=== PATIENT | female | born 1950 | race Caucasian/White ===

== ENCOUNTER 2018-01-16 11:15 | Emergency (ER) | payer OTHER ==
--- OUTSIDE RECORDS SUMMARY | 2018-01-16 11:17 | XMS REPORT | Continuity of Care Document ---
:1950 Author Organization Interface Problems Problem Status Onset Classification Date Comments Source Date Reported N18.3 - "CHRONIC Active [facility] KIDNEY DISEASE, STAGE" 016 [place] ARANESP 60 MCG, Active CPT-99957, D63.1 016 [place] DENSE BREAST Active 016 [place] SCREENING Active 016 [place] SCREENING MAMMO Active 016 [facility] CPT 88064, ANEMIA IN Active CKD D63.1 016 [facility] Anemia Resolved Problem 11/03/2015 [place] Anemia associated with Active Problem 11/03/2015 chronic renal failure [place] Chronic kidney disease Resolved Problem 11/03/2015 [facility] Diabetes mellitus type Resolved Problem 11/03/2015 2 [place] Hypertension Resolved Problem 11/03/2015 [place] Retinopathy Resolved Problem 11/03/2015 [facility] Peripheral vascular Active Diagnosis 04/10/2016 [facility] disease, unspecified MD Dandy, PA Bruit Active Problem 04/10/2016 Chan Dorman MD, PA Dyspnea, unspecified Active Diagnosis 04/10/2016 Chan Dorman MD, PA Abnormal ECG Active Problem 04/10/2016 Chan Dorman MD, PA Shortness of breath Active Diagnosis 04/10/2016 Chan Dorman MD, PA Screening for Active Diagnosis 04/10/2016 [facility] cardiovascular Dandy, disorders , PA 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, failure , PA Pure Active Diagnosis 04/10/2016 [facility] hypercholesterolemia MD Dandy, PA R06.02 Active [place] SHORTNESS OF BREATH Active [place] ANEMIA IN CHRONIC Active KIDNEY DISEASE [place] ENCNTR SCREEN Active MAMMOGRAM FOR [place] MALIGNANT NE INCONCLUSIVE MAMMOGRAM Active [facility] Medications Medication Details Route Status Patient Ordering Order Source Instructions Provider Date HydrALAZINE HCl 1 tablet Orally Active 25 MG Orally Al-Azzeh 02/14/ Chan three times a 2015 terese Dorman (tid) , PA Isosorbide 1 tablet Orally Active 10 mg Orally Al-Azzeh 02/14/ Chan Dinitrate three times a 2015, (tid) JUAN GUY Carvedilol as directed Orally Active 6.25 MG Al-Azzeh 10/31/ Chan Orally twice 2015, a day (bid) JUAN GUY Carvedilol 1 tablet Orally No Longer 3.125 MG Al-Azzeh 10/31/ Chan Active Orally twice 2015, a day (bid) JUAN GUY Carvedilol as directed Orally Active 12.5 MG Al-Azzeh 10/31/ Chan Orally twice 2015, a day (bid) JUAN GUY Aranesp 60 No Longer MH microgram, Active 2015 1 mL, Route: SUB-Q, Drug form: INJ, ONCALL, Start date: 10/31/15 13:00:00 CDT, Duration: 8 hr, Stop date: 10/31/15 20:59:00 CDTNotes: (Same as: Aranesp) Non-formula ry Aranesp 60 No Longer MH microgram, Active 2015 1 mL, Route: SUB-Q, Drug form: INJ, ONCALL, Start date: 10/16/15 12:00:00 CDT, Duration: 12 hr, Stop date: 10/16/15 23:59:00 CDTNotes: (Same as: Aranesp) Non-formula ry Amlodipine 1 tablet Orally No Longer 2.5 MG Orally Al-Azzeh 10/09/ Chan Besylate Active Once a day 2015 MD Dorman PA Aranesp 60 No Longer MH microgram, Active 2015 1 mL, Route: SUB-Q, Drug form: INJ, ONCALL, Start date: 10/03/15 11:00:00, Duration: 12 hr, Stop date: 10/03/15 22:59:00Not es: (Same as: Aranesp) Non-formula ry Aranesp 60 Inactive MH microgram, 2015 1 mL, Route: SUB-Q, Drug form: INJ, ONCALL, Start date: 09/17/15 13:00:00, Duration: 12 hr, Stop date: 09/18/15 0:59:00Note s: (Same as: Aranesp) Non-formula ry atorvastatin PO, Active Bedtime, 0 2015 Refill(s) Coreg PO, BID, 0 Active Refill(s) 2015 [facility] Spironolactone 25 mg=2 Active tab, PO, 2015 Daily, # 60 tab, 0 Refill(s) glimepiride PO, Daily, Active 0 Refill(s) 2015 Janumet PO, BID, 0 Active Refill(s) 2015 Aranesp 60 Inactive microgram, 2015 1 mL, Route: SUB-Q, Drug form: INJ, ONCALL, Start date: 08/30/15 13:00:00, Duration: 1 day, Stop date: 08/31/15 12:59:00Not es: (Same as: Aranesp) Non-formula ry Aranesp 60 Inactive microgram, 2015 [facility] Route: SUB-Q, Drug form: INJ, ONCALL, Start date: 08/10/15 13:00:00, Duration: 1 day, Stop date: 08/11/15 12:59:00Not es: (Same as: Aranesp) Non-Formula ry Advair Diskus 1 puff Inhalation Active 250-50 Al-Azzeh Chan MCG/DOSE Dandy, Inhalation JUAN GUY Twice a day Nasonex 2 sprays in Nasally Active 50 MCG/ACT Al-Azzeh Chan each Nasally Once Dandy, nostril a day JUAN GUY Spironolactone 1 tablet Orally Active 25 MG Orally Al-Azzeh Chan Once a day MD Dorman PA Januvia 1 tablet Orally Active 50 MG Orally Al-Azzeh Chan Once a day MD Dandy PA Glimepiride 1 tablet Orally Active 4 MG Orally Al-Azzeh Chan with Once a day Dandy breakfast JUAN GUY or the first main meal of the day Atorvastatin 1 tablet Orally Active 40 MG Orally Al-Azzeh Chan Calcium Once a day MD Dandy PA Omeprazole 1 tablet Orally Active 20 mg Orally Al-Azzeh Chan twice a day Dandy, (bid) JUAN GUY Allergies, Adverse Reactions, Alerts Substance Category Reaction Severity Reaction Status Date Comments Source type Reported penicillin Adverse Info Not Adverse Active Chan Reaction Available Reaction 6 MD Dandy, PA NKDA Assertion Drug Active allergy [facility] Immunizations Immunization Date Given Site Status Last Updated Comments Source Results Order Name Results Value Reference Date Interpretation Comments Source Range Breast Breast - BREAST COMPLETE HAMMAD US 10/03 - Complete Complete Hammad - [facility] Hammad US US ULTRASOUND OF BOTH BREASTS AND BOTH AXILLA: 10/04/2015 CLINICAL: Dense breasts. Read by: Mart Lambert MD Dictated Date/time: 10/04/15 13:42 Electronically Signed by: Mart Lambert MD 10/04/15 13:42 FINAL REPORT Comparison is made to exam dated: 09/07/2015 mammogram - [facility]. Color flow and real-time ultrasound of both breasts and both axilla were performed. Terry scale images of the real-time examination were reviewed. For both breasts, all 4 quadrants, the retroareolar region and axilla are evaluated in this exam. No abnormalities were seen sonographically in either breast or either axilla. IMPRESSION: BENIGN There is no sonographic evidence of malignancy. Return to annual mammogram screening schedule is recommended. The results were reviewed with the patient. SUMMARY: The patient would likely benefit from 3D tomosynthesis screening mammograms given her breast density, which can be performed at [facility]. Mart Lambert M.D. jt/:10/04/2015 13:42:31 Cannery Tender Engineer: Chicho Dejesus, [facility] This exam was dictated and interpreted by [id number] for [facility]. letter sent: Normal exam Ultrasound BI-RADS: 2 Benign Digital Digital - DIGITAL MAMMO SCREENING HAMMAD GUZMAN 09/06 - Mammo Mammo /2015 - [facility] Screening Screening BILATERAL DIGITAL SCREENING MAMMOGRAM WITH CAD: 2015 Hammad Denny MA CLINICAL: Routine. Read by: Mart Lambert MD Dictated Date/time: 09/19/15 08:31 Electronically Signed by: Mart Lambert MD 09/19/15 08:31 FINAL REPORT Current study was evaluated with a Computer Aided Detection (CAD) system. Comparison is made to exam dated: 09/28/2013 mammogram. Outside films requested but not received. The tissue of both breasts is heterogeneously dense, which could obscure detection of small masses. Exam is limited as the technologist notes the patient would not allow for optimal compression. Patient complains of intermittent breast pain and/or tenderness. There are benign appearing scattered calcifications and densities in both breasts. No significant masses, calcifications, or other findings are seen in either breast. There has been no significant interval change. IMPRESSION: BENIGN Clinical management of the patient's breast complaints is recommended. There is no mammographic evidence of malignancy. A 1 year screening mammogram is recommended. SUMMARY: As the patient has dense breast parenchyma with scattered densities, this could obscure additional abnormalities. The patient would likely benefit from a supplemental screening test such as bilateral u ltrasound. This should be discussed with the patient by the referring physician. Mart simental/joyce:09/19/2015 08:31:07 Cannery Tender Engineer: Anne Reina, [facility] This exam was dictated and interpreted by [id number] for [facility]. letter sent: Normal Henda Mammogram BI-RADS: 2 Benign Retroperit Retroperiton PROCEDURE: RENAL ULTRASOUND WITH DOPPLER 08/22 - [facility] - [facility] w w Doppler US Doppler US CLINICAL INDICATION: N18.3. Chronic kidney disease. Read by: Toi Ramirez MD Dictated Date/time: 08/22/15 12:45 Electronically Signed by: Toi Ramirez MD 08/22/15 13:08 FINAL REPORT COMPARISON: None. TECHNIQUE: Multiple longitudinal and transverse real time sonographic images of the kidneys and urinary bladder are obtained. Doppler evaluation of the renal vasculature was performed. Static images are submitted. FINDINGS: KIDNEYS: Both kidneys are remarkable for mild diffuse increased cortical echogenicity suggesting medical renal disease. The renal cortical thickness is within normal limits. There is no demonstrable renal lesion or renal calculus. There is no hydronephrosis or perinephric fluid collection. The right kidney measures 11.4 x 5 x 5.1 cm. The maximal right renal cortical thickness measures 1.6 cm. The left kidney m easures 11 x 4.6 x 5.3 cm. The maximal left renal cortical thickness measures 1.6 cm. RENAL DOPPLER: The peak systolic velocity of the abdominal aorta is 90.3 cm/s, the visualized right renal artery is 88.5 cm/s and the visualized left renal artery is 79.3 cm/s. The right renal artery to aortic ratio i s 0.98 and the left is 0.88. Flow is demonstrated in each renal vein at the hilum. The resistive indices of the arcuate arteries of the right kidney range from 0.75-0.78 and for the left kidney range fr om 0.64-0.76. The arterial waveforms demonstrate a normal morphology. BLADDER: Images of the urinary bladder are unremarkable. Bilateral ureteral jets are demonstrated in the lumen of the urinary bladder by color flow analysis. The prevoid volume of the urinary bladder measures 284 mL. The postvoid volume measures 50.9 mL. IMPRESSION: 1. Findings suggesting medical renal disease. 2. Otherwise unremarkable renal ultrasound. 3. There is no sonographic evidence for a hemodynamically significant renal artery stenosis. SL: 15 Chest 2 Chest 2 EXAMINATION: Chest 2 views 08/09 - views DX views [facility] CLINICAL HISTORY: Shortness of breath. Read by: Umair Cote MD Dictated Date/time: 08/09/15 17:17 Electronically Signed by: Umair Cote MD 08/09/15 17:18 FINAL REPORT COMPARISON: No prior similar examinations are currently available for comparison. The hyperinflated lungs are clear of consolidation, pleural effusion, and pneumothorax. The heart size is at the upper limits of normal. Mild spinal degenerative changes without acute injury or suspicious focal osseous lesion. IMPRESSION: 1. Mild hyperinflation. 2. Heart size near upper limits of normal. SL:17 Vital Signs Vital Sign Value Date Comments Source Weight 150 02/15/2016 Chan Dorman MD, PA Heart Rate 64 02/15/2016 Chan Dorman MD, PA Diastolic (mm Hg) 82 02/15/2016 Chan Dorman MD, PA Systolic (mm Hg) 176 02/15/2016 Chan Dorman MD, PA Weight 158 11/01/2015 Chan Dorman MD, PA Heart Rate 73 11/01/2015 Chan Dorman MD, PA Diastolic (mm Hg) 65 11/01/2015 Chan Dorman MD, PA Systolic (mm Hg) 120 11/01/2015 Chan Dorman MD, PA Weight 70 10/03/2015 [facility] BMI Calculated 25.68 10/03/2015 [facility] Height 165.1 cm 10/03/2015 [facility] Height 165.1 cm 08/13/2015 [facility] BMI Calculated 25.68 08/13/2015 [facility] Weight 70 08/13/2015 [facility] Encounters Location Location Encounter Encounter Reason Attending ADM DC Status Source Details Type Number For Provider Date Date Visit [facility] [id number] Mohammad 08/09 08/10 Tico Morales /2015 [facility] Outpt Diag [id number] Logan 08/22 08/23 [facility] Calvin /2015 [facility] OP [id number] Aemena 08/29 09/28 [facility] Hash-Jiw /2015 [facility] Outpatient [id number] Ameena 09/06 09/07 [facility]iw /2015 [facility] OP [id number] Ameena 10/01 10/31 [facility]i /2015 [facility] Outpatient [id number] Ameena 10/03 10/04 [facility]i /2015 [facility] echo/caroti [id number] 10/15 10/15 Chan Dorman MD, d/arterial [id number] /2015 JUAN Dorman dopplers [id number] , PA Chan echo/caroti [id number] 10/15 10/15 Chan Dorman MD, d/arterial [id number]- /2015 JUAN Dorman dopplers [id number] , PA Chan echo/caroti [id number] 10/15 10/15 Chan Dorman MD, d/arterial [id number] /2015 JUAN Dorman dopplers [id number] , PA Chan Follow-Up [id number] 10/31 10/31 Chan Dorman MD, [id number] /2015 JUAN Dorman [id number] , PA Chan Follow-Up [id number] 10/31 10/31 Chan Dorman MD, [id number] /2015 JUAN Dorman [id number] , JUAN Giles Follow-Up [id number] 02/14 02/14 Chan Dorman MD, [id number] /2015 JUAN Dorman [id number] , JUAN Procedures Procedure Code Date Perfomer Comments Source [facility] - Total [id number] 06/29/1997 [facility] abdominal hysterectomy and bilateral salpingo-oophorect [facility] Back care [id number] [facility]
--- OUTSIDE RECORDS SUMMARY | 2018-01-16 11:18 | XMS REPORT ---
:1950 Author Organization [facility] Care Team Providers Name Role Phone Mil Ibarra Provider Role Unavailable Allergies, Adverse Reactions, Alerts Substance Reaction Event Type penicillin Info Not Available Drug Allergy Encounters Encounter Location Date echo/carotid/arterial dopplers Chan Dorman MD, PA October 16, 2015 Follow-Up Chan Dorman MD, PA November 01, 2015 Follow-Up Chan Dorman MD, PA Feb 15, 2016 Problems Problem Type Condition ICD-9 Code Onset Dates Condition Status Assessment Shortness of breath R06.02 Active Assessment Dyspnea, unspecified R06.00 Active Assessment Pure hypercholesterolemia E78.0 Active Assessment Peripheral vascular disease, I73.9 Active unspecified Assessment Screening for cardiovascular Z13.6 Active disorders Problem Bruit R09.89 Active Problem Hypertensive heart disease I11.9 Active without heart failure Problem Abnormal ECG R94.31 Active Assessment Abnormal ECG R94.31 Active Assessment Bruit R09.89 Active Problem Peripheral vascular disease, I73.9 Active unspecified Assessment Hypertensive heart disease I11.9 Active without heart failure Medications Medication Code System Code Instructions Start End Status Dosage Date Date Advair Diskus MEDISPAN 95246-1 250-50 MCG/DOSE Active 1 puff 696-00 Inhalation Twice a day Atorvastatin MEDISPAN 83391-3 40 MG Orally Active 1 tablet Calcium 121-05 Once a day Omeprazole MEDISPAN 04340-1 20 mg Orally Active 1 tablet 915-30 twice a day (bid) Spironolactone MEDISPAN 94411-3 25 MG Orally Active 1 tablet 803-11 Once a day Nasonex MEDISPAN 39774-2 50 MCG/ACT Active 2 sprays in 288-01 Nasally Once a each nostril day Januvia MEDISPAN 28212-1 50 MG Orally Active 1 tablet 112-28 Once a day Carvedilol MEDISPAN 54657-1 12.5 MG Orally October 31, Active as directed 295-01 twice a day 2015 (bid) HydrALAZINE HCl MEDISPAN 73663-7 25 MG Orally Feb 14, Active 1 tablet 554-00 three times a 2015 day (tid) Isosorbide MEDISPAN 90605-7 10 mg Orally Feb 14, Active 1 tablet Dinitrate 771-01 three times a 2015 day (tid) Glimepiride MEDISPAN 32534-1 4 MG Orally Active 1 tablet 256-01 Once a day with breakfast or the first main meal of the day Social History Social History Element Qualifiers Date Reported Tobacco Use: . Are you a: never smoker Feb 15, 2016 Do you drink alcohol? . Status: No Feb 15, 2016 Vital Signs Date/Time: Feb 15, 2016 Weight 150 lbs Cardiac Monitoring Heart Rate 64 /min Blood Pressure Diastolic 82 mm Hg Blood Pressure Systolic 176 mm Hg Summary Purpose eClinicalWorks Submission
--- OUTSIDE RECORDS SUMMARY | 2018-01-16 11:18 | XMS REPORT ---
:1950 Author Organization eClinicalWorks Care Team Providers Name Role Phone MichaelGalileoDennis Mil Provider Role Unavailable Encounters Encounter Location Date echo/carotid/arterial dopplers Chan Dorman MD, PA October 16, 2015 Social History Social History Element Qualifiers Date Reported Tobacco Use: . Are you a: never smoker October 10, 2015 Do you drink alcohol? . Status: No October 10, 2015 Summary Purpose eClinicalWorks Submission
--- OUTSIDE RECORDS SUMMARY | 2018-01-16 11:18 | XMS REPORT ---
:1950 [facility] Team Providers Name Role Phone Mil Ibarra Provider Role Unavailable Allergies, Adverse Reactions, Alerts Substance Reaction Event Type penicillin Info Not Available Drug Allergy Encounters Encounter Location Date echo/carotid/arterial dopplers Chan Dorman MD, PA October 16, 2015 Follow-Up Chan Dorman MD, PA November 01, 2015 Problems Problem Type Condition ICD-9 Code Onset Dates Condition Status Assessment Peripheral vascular disease, I73.9 Active unspecified Assessment Bruit R09.89 Active Assessment Dyspnea, unspecified R06.00 Active Assessment Abnormal ECG R94.31 Active Assessment Shortness of breath R06.02 Active Assessment Screening for cardiovascular Z13.6 Active disorders Assessment Hypertensive heart disease I11.9 Active without heart failure Assessment Pure hypercholesterolemia E78.0 Active Medications Medication Code System Code Instructions Start End Status Dosage Date Date Carvedilol MEDISPAN 12533-6 6.25 MG Orally October 31, Active as directed 135-01 twice a day 2015 (bid) Carvedilol MEDISPAN 95423-3 3.125 MG Orally October 31, Inactive 1 tablet 051-01 twice a day 2015 (bid) Advair Diskus MEDISPAN 01772-7 250-50 MCG/DOSE Active 1 puff 696-00 Inhalation Twice a day Nasonex MEDISPAN 98187-3 50 MCG/ACT Active 2 sprays in 288-01 Nasally Once a each day nostril Spironolactone MEDISPAN 92859-3 25 MG Orally Active 1 tablet 803-11 Once a day Amlodipine MEDISPAN 32227-3 2.5 MG Orally SeptemberOctober 31, Inactive 1 tablet Besylate 100-22 Once a day 2015 Januvia MEDISPAN 77039-7 50 MG Orally Active 1 tablet 112-28 Once a day Glimepiride MEDISPAN 33637-1 4 MG Orally Active 1 tablet 256-01 Once a day with breakfast or the first main meal of the day Atorvastatin MEDISPAN 23927-6 40 MG Orally Active 1 tablet Calcium 121-05 Once a day [facility] 20 mg Orally Active 1 tablet 915-30 twice a day (bid) Social History Social History Element Qualifiers Date Reported Tobacco Use: . Are you a: never smoker November 03, 2015 Do you drink alcohol? . Status: No November 03, 2015 Vital Signs Date/Time: November 01, 2015 Weight 158 lbs Cardiac Monitoring Heart Rate 73 /min Blood Pressure Diastolic 65 mm Hg Blood Pressure Systolic 120 mm Hg Summary Purpose eClinicalWorks Submission
[2018-01-16] MEDS ORDERED: NA CHLORIDE 0.9% 1,000 ML ONE (11:53)
[2018-01-16] MEDS ORDERED: ONDANSETRON 4 MG/2 ML VIAL ONE (11:53)
[2018-01-16 12:08] LABS: Absolute Lymphocytes (CBC) 1.1 K/uL (0.7-4.9); Absolute Monocytes 0.3 K/uL (0.1-1.3); Absolute Neutrophil 3.2 K/uL (1.8-8.0); Basophils % 0.6 % (0-1.3); Eosinophils % 3.2 % (0-4.4); Hematocrit 26.4 % (36.0-45.0); Lymphocytes % 22.6 % (15.3-44.8); MCH 33.7 pg (27.0-35.0); MCV 94.5 fL (80-100); MPV 8.9 fL (7.6-11.3); Monocytes % 6.4 % (3.3-12.3)
[2018-01-16 12:19] LABS: Albumin 3.8 g/dL (3.4-5.0); Bilirubin Direct 0.1 mg/dL (0-0.2); Bilirubin Total 0.3 mg/dL (0.2-1.0); Potassium 4.2 mmol/L (3.5-5.1); Protein, Total 7.1 g/dL (6.4-8.2)
[2018-01-16] MEDS ORDERED: NA CHLORIDE 0.9% 500 ML ONE (13:22)
--- NOTE | 2018-01-16 13:25 | RAD REPORT ---
EXAM DESCRIPTION: US - Abdomen Exam Limited - 01/16/2018 1:16 pm CLINICAL HISTORY: Abdominal pain. COMPARISON: None. FINDINGS: The gallbladder wall is not thickened. A gallstone is not seen. Mild to moderate sludge i s present. The biliary tree is normal caliber. IMPRESSION: Mild to moderate sludge within the gallbladder.
--- NOTE | 2018-01-16 13:43 | EDPHYS ---
Physician Documentation [facility] Name: Tracy Butt Age: 67 yrs Sex: Female : 1950 Arrival Date: 01/16/2018 Time: 11:18 Bed 5 Private MD: Noe Taylor ED Physician Sven Osuna HPI: 01/16 11:36 This 67 yrs old Female presents to ER via Ambulatory with complaints of rn Nausea, Decreased Appetite, Leg Cramps. 11:36 The patient presents to the emergency department with nausea. Onset: The rn symptoms/episode began/occurred 2 day(s) ago. Possible causes: unknown. Severity of symptoms: At their worst the symptoms were mild in the emergency department the symptoms are unchanged. The patient has experienced a previous episode. Reports nausea, decreased appetite, fatigue, and leg cramps for about 2 days, reports last time had these symptoms had acute renal failure, so came in for evaluation before needs another hospitalization, otherwise no abd pain. Normal bowel movements. Just had EGD/colonoscopy/swallow study/pill cam done at GI center, no results yet.. Historical: - Allergies: 11:45 PENICILLINS; tw2 11:45 CHLORAMPHENICOL; tw2 - Home Meds: 11:45 darbepoetin bella in polysorbate injection injection [Active]; atorvastatin 20 mg oral tw2 tab 1 tab once daily [Active]; brimonidine 0.2 % ophthalmic drop 1 drop every 8 hours [Active]; calcium acetate miscellaneous powd [Active]; Cardura 8 mg Oral tab 1 tab once daily [Active]; carvedilol 25 mg oral tab 1 tab 2 times per day [Active]; ciprofloxacin tablet 500 mg 1 tab by mouth two times a day [Active]; furosemide 20 mg Oral tab 1 tab 2 times per day [Active]; 12:09 glimepiride 2 mg Oral tab 1 tab once daily [Active]; hydralazine 100 mg Oral tab 1 tab tw2 2 times per day [Active]; hydrocortisone 2.5 % Topical crea once daily [Active]; Integra F 125-1-40-3 mg oral cap 1 cap once daily [Active]; Iron CR 65 mg Oral twice a day [Active]; ketorolac 0.4 % ophthalmic drop [Active]; losartan 50 mg oral tab 1 tab once daily [Active]; pantoprazole 40 mg oral TbEC 1 tab once daily [Active]; vitamin A 8,000 unit Oral cap 1 cap once daily [Active]; - PMHx: 12:09 Diabetes - NIDDM; Hypertension; kidney disease; tw2 - Immunization history:: Adult Immunizations up to date. - Social history:: Smoking status: Patient/guardian denies using tobacco. - Family history:: not pertinent. - Ebola Screening: : Patient denies travel to an Ebola-affected area in the 21 days before illness onset. - Hospitalizations: : No recent hospitalization is reported. ROS: 11:36 Constitutional: Negative for fever, chills, and weight loss, Eyes: Negative for injury, rn pain, redness, and discharge, Neck: Negative for injury, pain, and swelling, Cardiovascular: Negative for chest pain, palpitations, and edema, Respiratory: Negative for shortness of breath, cough, wheezing, and pleuritic chest pain, Abdomen/GI: Negative for abdominal pain, vomiting, diarrhea, and constipation, MS/Extremity: Negative for injury and deformity, Skin: Negative for injury, rash, and discoloration, Neuro: Negative for headache, numbness, tingling, and seizure. Exam: 11:36 Constitutional: This is a well developed, well nourished patient who is awake, alert, rn and in no acute distress. Head/Face: Normocephalic, atraumatic. Eyes: Pupils equal round and reactive to light, extra-ocular motions intact. Lids and lashes normal. Conjunctiva and sclera are non-icteric and not injected. Cornea within normal limits. Periorbital areas with no swelling, redness, or edema. ENT: Oropharynx with no redness, swelling, or masses, exudates, or evidence of obstruction, uvula midline. Cardiovascular: Regular rate and rhythm with a normal S1 and S2. No gallops, murmurs, or rubs. Normal PMI, no JVD. No pulse deficits. Respiratory: Lungs have equal breath sounds bilaterally, clear to auscultation and percussion. No rales, rhonchi or wheezes noted. No increased work of breathing, no retractions or nasal flaring. Abdomen/GI: Soft, non-tender, with normal bowel sounds. No distension or tympany. No guarding or rebound. No evidence of tenderness throughout. MS/ Extremity: Pulses equal, no cyanosis. Neurovascular intact. Full, normal range of motion. Equal circumference. Neuro: Awake and alert, GCS 15, oriented to person, place, time, and situation. Cranial nerves II-XII grossly intact. Motor strength 5/5 in all extremities. Sensory grossly intact. Cerebellar exam normal. Vital Signs: 11:33 BP 177 / 72; Pulse 71; Resp 17; Pulse Ox 98% on R/A; tw2 11:48 Temp 98.4(O); ae1 12:56 BP 152 / 68; Pulse 75; Resp 18; Pulse Ox 97% on R/A; ae1 13:23 BP 152 / 62; Pulse 72; Resp 17; Pulse Ox 97% on R/A; tw2 MDM: 11:26 Patient medically screened. rn 13:40 Differential diagnosis: cholecystitis, pancreatitis, viral gastroenteritis, rn gastroenteritis, dehydration, acute renal failure. Data reviewed: vital signs, nurses notes, lab test result(s), radiologic studies, ultrasound, and as a result, I will discharge patient. Counseling: I had a detailed discussion with the patient and/or guardian regarding: the historical points, exam findings, and any diagnostic results supporting the discharge/admit diagnosis, lab results, radiology results, the need for outpatient follow up, to return to the emergency department if symptoms worsen or persist or if there are any questions or concerns that arise at home. Response to treatment: the patient's symptoms have markedly improved after treatment, the patient's condition has returned to base line, the patient is now symptom free, patient is well hydrated. and as a result, I will discharge patient. Special discussion: I discussed with the patient/guardian in detail that at this point there is no indication for admission to the hospital. It is understood, however, that if the symptoms persist or worsen the patient needs to return immediately for re-evaluation. ED course: Pt feels much better, no nausea, mild elevation of lipase but no abd pain, u/s gallbladder shows sludge but normal CBD, no stones, normal LFTs, doesn't drink etoh, given 1.5 L NS, creatinine a few weeks ago shows baseline of 2.5, only slightly elevated today at 2.6, pre-renal ratio, will dc home with oral hydration and renal f/u. . 01/16 11:36 Order name: Basic Metabolic Panel; Complete Time: 12:26 rn 01/16 11:36 Order name: CBC with Diff; Complete Time: 12:26 rn 01/16 11:36 Order name: Hepatic Function; Complete Time: 12:26 rn 01/16 11:36 Order name: Lipase; Complete Time: 12:26 rn 01/16 11:36 Order name: Urine Microscopic Only rn 01/16 11:36 Order name: Troponin (emerg Dept Use Only); Complete Time: 12:26 rn 01/16 11:36 Order name: IV Saline Lock; Complete Time: 11:47 rn 01/16 11:36 Order name: Labs collected and sent; Complete Time: 11:58 rn 01/16 11:36 Order name: EKG; Complete Time: 11:38 rn 01/16 12:37 Order name: US Abdomen Limited; Complete Time: 13:43 rn 01/16 14:36 Order name: Urine Dipstick--Ancillary (enter results) bd 01/16 11:36 Order name: Urine Dipstick-Ancillary (obtain specimen); Complete Time: 14:26 rn 01/16 11:36 Order name: EKG - Nurse/Tech; Complete Time: 11:47 rn Administered Medications: 11:50 Drug: NS 0.9% 1000 ml Route: IV; Rate: 1000 ml; Site: right antecubital; ae1 12:45 Follow up: IV Status: Completed infusion ae1 11:50 Drug: Zofran 4 mg Route: IVP; Site: right antecubital; ae1 13:18 Follow up: Response: Pain is decreased ae1 13:22 Drug: NS 0.9% 500 ml Route: IV; Rate: bolus; Site: right antecubital; ae1 14:36 Follow up: IV Status: Completed infusion ae1 Disposition: 01/16/18 13:42 Discharged to Home. Impression: Dehydration, Nausea, Cramp and spasm. - Condition is Stable. - Discharge Instructions: Dehydration, Adult, Leg Cramps, Muscle Cramps and Spasms. - Prescriptions for Zofran ODT 4 mg Oral tablet,disintegrating - place 1 tablet by TRANSLINGUAL route every 8 hours As needed; 20 tablet. - Medication Reconciliation Form, Thank You Letter, Antibiotic Education, Prescription Opioid Use form. - Follow up: Noe Taylor MD; When: 5 - 6 days; Reason: Recheck today's complaints, Re-evaluation by your physician. - Problem is new. - Symptoms have improved. Signatures: Dispatcher [employer] EDSven Fortune MD MD rn Wise, Tara, RN RN tw2 Handy Taylor RN RN ae1 Corrections: (The following items were deleted from the chart) 14:39 13:42 01/16/2018 13:42 Discharged to Home. Impression: Dehydration; Nausea; Cramp and ae1 spasm. Condition is Stable. Forms are Medication Reconciliation Form, Thank You Letter, Antibiotic Education, Prescription Opioid Use. Follow up: Noe Taylor; When: 5 - 6 days; Reason: Recheck today's complaints, Re-evaluation by your physician. Problem is new. Symptoms have improved. rn
--- NOTE | 2018-01-16 13:43 | ER ---
Nurse's Notes [facility] Name: Tracy Butt Age: 67 yrs Sex: Female : 1950 Arrival Date: 01/16/2018 Time: 11:18 Bed 5 Private MD: Noe Taylor Diagnosis: Dehydration;Nausea;Cramp and spasm Presentation: 01/16 11:32 Presenting complaint: Patient states: i have had decreased appetite and i am feeling tw2 dehydrated for a week now, daughter states "she has been outside a lot this week and I think that just zapped her". Transition of care: patient was not received from another setting of care. Onset of symptoms was January 16, 2018. Risk Assessment: Do you want to hurt yourself or someone else? Patient reports no desire to harm self or others. Initial Sepsis Screen: Does the patient meet any 2 criteria? No. Patient's initial sepsis screen is negative. Does the patient have a suspected source of infection? No. Patient's initial sepsis screen is negative. Care prior to arrival: None. 11:32 Method Of Arrival: Ambulatory tw2 11:32 Acuity: ANTHONY 3 tw2 Historical: - Allergies: 11:45 PENICILLINS; tw2 11:45 CHLORAMPHENICOL; tw2 - Home Meds: 11:45 darbepoetin bella in polysorbate injection injection [Active]; atorvastatin 20 mg oral tw2 tab 1 tab once daily [Active]; brimonidine 0.2 % ophthalmic drop 1 drop every 8 hours [Active]; calcium acetate miscellaneous powd [Active]; Cardura 8 mg Oral tab 1 tab once daily [Active]; carvedilol 25 mg oral tab 1 tab 2 times per day [Active]; ciprofloxacin tablet 500 mg 1 tab by mouth two times a day [Active]; furosemide 20 mg Oral tab 1 tab 2 times per day [Active]; 12:09 glimepiride 2 mg Oral tab 1 tab once daily [Active]; hydralazine 100 mg Oral tab 1 tab tw2 2 times per day [Active]; hydrocortisone 2.5 % Topical crea once daily [Active]; Integra F 125-1-40-3 mg oral cap 1 cap once daily [Active]; Iron CR 65 mg Oral twice a day [Active]; ketorolac 0.4 % ophthalmic drop [Active]; losartan 50 mg oral tab 1 tab once daily [Active]; pantoprazole 40 mg oral TbEC 1 tab once daily [Active]; vitamin A 8,000 unit Oral cap 1 cap once daily [Active]; - PMHx: 12:09 Diabetes - NIDDM; Hypertension; kidney disease; tw2 - Immunization history:: Adult Immunizations up to date. - Social history:: Smoking status: Patient/guardian denies using tobacco. - Family history:: not pertinent. - Ebola Screening: : Patient denies travel to an Ebola-affected area in the 21 days before illness onset. - Hospitalizations: : No recent hospitalization is reported. Screenin:12 Abuse screen: Denies threats or abuse. Nutritional screening: No deficits noted. tw2 Tuberculosis screening: No symptoms or risk factors identified. Fall Risk None identified. Assessment: 11:30 General: Appears in no apparent distress. uncomfortable, Behavior is cooperative, ae1 anxious. 11:30 Pain: Denies pain. Neuro: Level of Consciousness is awake, alert, obeys commands, ae1 Oriented to person, place, time, situation. Cardiovascular: Patient's skin is warm and dry. Respiratory: Airway is patent Respiratory effort is even, unlabored, Respiratory pattern is regular, symmetrical. GI: Abdomen is round obese, Bowel sounds present X 4 quads. Abd is soft and non tender. GI: Reports anorexia, nausea. : No signs and/or symptoms were reported regarding the genitourinary system. EENT: No signs and/or symptoms were reported regarding the EENT system. Derm: Skin is pink, warm \\T\\ dry. Musculoskeletal: No signs and/or symptoms reported regarding the musculoskeletal system. 13:22 Reassessment: Provider at bedside discussing plan of care. ae1 13:23 Reassessment: Patient appears in no apparent distress at this time. No changes from tw2 previously documented assessment. Patient and/or family updated on plan of care and expected duration. Pain level reassessed. Patient is alert, oriented x 3, equal unlabored respirations, skin warm/dry/pink. Vital Signs: 11:33 BP 177 / 72; Pulse 71; Resp 17; Pulse Ox 98% on R/A; tw2 11:48 Temp 98.4(O); ae1 12:56 BP 152 / 68; Pulse 75; Resp 18; Pulse Ox 97% on R/A; ae1 13:23 BP 152 / 62; Pulse 72; Resp 17; Pulse Ox 97% on R/A; tw2 ED Course: 11:18 Patient arrived in ED. mr 11:18 Noe Taylor MD is Private Physician. mr 11:25 Handy Taylor, RN is Primary Nurse. ae1 11:26 Sven Osuna MD is Attending Physician. rn 11:33 Triage completed. tw2 11:33 Arm band placed on. tw2 11:47 Inserted saline lock: 20 gauge in right antecubital area, using aseptic technique. ae1 Blood collected. 11:49 Placed in gown. Bed in low position. Call light in reach. Side rails up X2. Pulse ox ae1 on. NIBP on. Warm blanket given. 12:54 Ultrasound completed. Patient tolerated well. Notified ED Physician NELY. sg3 13:16 US Abdomen Limited In Process Unspecified. EDMS 13:42 Noe Taylor MD is Referral Physician. rn 14:38 No provider procedures requiring assistance completed. IV discontinued, intact, ae1 bleeding controlled, No redness/swelling at site. Pressure dressing applied. Administered Medications: 11:50 Drug: NS 0.9% 1000 ml Route: IV; Rate: 1000 ml; Site: right antecubital; ae1 12:45 Follow up: IV Status: Completed infusion ae1 11:50 Drug: Zofran 4 mg Route: IVP; Site: right antecubital; ae1 13:18 Follow up: Response: Pain is decreased ae1 13:22 Drug: NS 0.9% 500 ml Route: IV; Rate: bolus; Site: right antecubital; ae1 14:36 Follow up: IV Status: Completed infusion ae1 Outcome: 13:42 Discharge ordered by . rn 14:38 Discharged to home ambulatory, with family. ae1 14:38 Condition: stable 14:38 Discharge instructions given to patient, family, Instructed on discharge instructions, follow up and referral plans. medication usage, Demonstrated understanding of instructions, Prescriptions given X 1. 14:39 Patient left the ED. ae1 Signatures: Dis[facility] [place] [facility] Baker mr Sven Osuna MD MD rn Wise, Tara, RN RN tw2 Handy Taylor, PARVIN RN ae1 Kelli Giraldo sg3 Corrections: (The following items were deleted from the chart) 12:39 12:38 General: Appears in no apparent distress. uncomfortable, Behavior is cooperative, ae1 anxious, ae1 : 12:38 Pain: ae1 ae1 : 12:38 General: Appears in no apparent distress. uncomfortable, Behavior is cooperative, ae1 anxious, ae1
[2018-01-16 14:46] LABS: Urine Blood TRACE (NEG); Urine Glucose TRACE (NEG); Urine Protein 1+ (NEG); Urine Specific Gravity <1.005 (1.005-1.030); Urine pH 5.5 (5.0-7.0)
[2018-01-16 14:50] LABS: Urine Bacteria NONE SEEN /HPF (<20); Urine Culture Reflex Order NOT NEEDED; Urine RBC <5 /HPF (NONE SEEN)
--- NOTE | 2018-01-18 07:47 | EKG ---
Test Date: 2018-01-16 Test Time: 11:41:35 Rental Clerk: ROBINA MEASUREMENT RESULTS: Intervals: Rate: 68 MA: 160 QRSD: 100 QT: 424 QTc: 450 [place]: P: 60 MA: 160 QRS: 19 T: 36 INTERPRETIVE STATEMENTS: Normal sinus rhythm Normal ECG No previous ECG available for comparison Electronically Signed On 01-18-18 07:46:48 CDT by Sandeep Burris
== END 2018-01-16 14:39 | disposition home or self-care (01) ==
LOC: ER 11:15
DX: E86.0 Dehydration (principal); R11.0 Nausea; R25.2 Cramp and spasm; E11.22 Type 2 diabetes mellitus with diabetic chronic kidney disease; I12.9 Hypertensive chronic kidney disease with stage 1 through stage 4 chronic kidney disease, or unspecified chronic kidney disease; N18.9 Chronic kidney disease, unspecified; Z79.84 Long term (current) use of oral hypoglycemic drugs; Z88.0 Allergy status to penicillin; Z88.8 Allergy status to other drugs, medicaments and biological substances
CPT/HCPCS: 36415; 76705; 80048; 80076; 83690; 84484; 85025; 93005; 96361; 96374; 99284; J2405; J7030; 81003; 81015; 82962

== ENCOUNTER 2018-05-29 19:07 | Emergency (ER) | payer OTHER ==
--- OUTSIDE RECORDS SUMMARY | 2018-05-29 19:10 | XMS REPORT | Clinical Summary ---
:1950 Author Organization [facility] Address [address] [place] [address] Care Team Providers Name Role Phone Unavailable Primary Care Provider Unavailable Allergies Active Allergy Reactions Severity Noted Date Comments Adhesive Tape Rash Low 04/02/2018 Chloramphenicol Sod Succinate Anaphylaxis High 04/02/2018 Penicillins Anaphylaxis High 04/02/2018 Medications Medication Sig Dispensed Refills Start Date End Date Status glimepiride (AMARYL) 2 Take 2 mg by mouth 0 Active MG tablet 2 (two) times daily. carvedilol (COREG) 25 Take 25 mg by 0 Active MG tablet mouth 2 (two) times daily with breakfast and dinner. hydrALAZINE Take 100 mg by 0 Active (APRESOLINE) 100 MG mouth 3 (three) tablet times daily. atorvastatin (LIPITOR) Take 20 mg by 0 Active 20 MG tablet mouth daily. pantoprazole Take 40 mg by 0 Active (PROTONIX) 40 MG mouth daily. tablet iron Take by mouth 0 Active fum,ps/folic/Bcomp,C daily. no.9 (INTEGRA PLUS ORAL) VITAMIN A ORAL Take by mouth 0 Active daily. ketorolac (ACULAR) 0.4 Place 1 drop into 0 Active % Drop both eyes 2 (two) times daily. brimonidine (ALPHAGAN) Place 1 drop into 0 Active 0.2 % ophthalmic both eyes 2 (two) solution times daily. losartan (COZAAR) 50 Take 50 mg by 0 Active MG tablet mouth daily. calcium citrate Take 1 tablet by 0 Active (CALCITRATE) 200 mg mouth daily. (950 mg) tablet Active Problems Not on file Encounters Date Type Specialty Care Team Description 04/12/2018 Anesthesia Event Hillary Loyd MD 04/12/2018 Surgery Radha Tillman UPPER ENDOSCOPY,FNA Primo Santamaria MD W/ULTRASOUND 04/12/2018 Hospital Encounter Radha Tillman MD 04/02/2018 Hospital Encounter Pre-Admission Resource, Oqmt Testing Preadmit Phone after 05/28/2017 Social History Tobacco Use Types Packs/Day Years Used Date Never Smoker Smokeless Tobacco: Never Used Alcohol Use Drinks/Week oz/Week Comments No Sex Assigned at Date Recorded Not on file Job Start Date Occupation Industry Not on file Not on file Not on file Travel History Travel Start Travel End No recent travel history available. Last Filed Vital Signs Vital Sign Reading Time Taken Blood Pressure 166/77 04/12/2018 3:40 PM CDT Pulse 65 04/12/2018 3:40 PM CDT Temperature 36.2 C (97.1 F) 04/12/2018 3:15 PM CDT Respiratory Rate 16 04/12/2018 3:40 PM CDT Oxygen Saturation 99% 04/12/2018 3:40 PM CDT Inhaled Oxygen Concentration - - Weight 68 kg (150 lb) 04/12/2018 2:04 PM CDT Height 162.6 cm (5' 4") 04/12/2018 2:04 PM CDT Body Mass Index 25.75 04/12/2018 2:04 PM CDT Plan of Treatment Not on file Procedures Procedure Name Priority Date/Time Associated Diagnosis Comments REPORT OF PROCEDURE 04/12/2018 3:17 PM - ENDOSCOPY URL CDT POCT-GLUCOSE METER Routine 04/12/2018 2:14 PM Results for this CDT procedure are in the results section. UPPER ENDOSCOPY,FNA 04/12/2018 1:00 PM Mass of pancreas W/ULTRASOUND CDT Special Needs (LINEAR SCOPE) after 05/28/2017 Results REPORT OF PROCEDURE - ENDOSCOPY URL (04/12/2018 3:17 PM CDT) Narrative Performed At POC-Glucose meter (04/12/2018 2:14 PM CDT) POC-Glucose Meter 190 (H)Comment: TESTED AT 70 - 110 mg/dL [facility] [address] [facility] [address] Specimen Blood Performing Organization Address City/State/Zipcode Phone Number [facility] [address] [place] [address] CENTER after 05/28/2017 Insurance Payer Benefit Plan / Group Subscriber ID Type Phone Address MEDICARE MEDICARE A B xxxxxxxxxxx Medicare MCR GENERIC MEDICARE xxxxxxxxxx [facility] SUPPLEMENT/INDIVIDUAL SUPPLEMENT
--- OUTSIDE RECORDS SUMMARY | 2018-05-29 19:10 | XMS REPORT | Clinical Summary ---
:1950 Author Organization [facility] Address [address] [place] [address] Care Team Providers Name Role Phone Asked, No Pcp Primary Care Provider Unavailable Allergies Active Allergy Reactions Severity Noted Date Comments Chloramphenicol Anaphylaxis High 04/26/2018 "closed my throat, terrible rash" Penicillins Anaphylaxis High 04/26/2018 "closed my throat, terrible rash" Medications Medication Sig Dispensed Refills Start Date End Date Status glimepiride (AMARYL) Take 2 mg by mouth 0 Active 2 MG tablet 2 (two) times a day. carvedilol (COREG) 25 Take 25 mg by mouth 0 Active MG tablet 2 (two) times a day with meals. hydrALAZINE Take 100 mg by 0 Active (APRESOLINE) 100 MG mouth 2 (two) times tablet a day. losartan (COZAAR) 50 Take 50 mg by mouth 0 Active MG tablet daily. atorvastatin Take 20 mg by mouth 0 Active (LIPITOR) 20 MG daily. Default OP tablet ins calcium acetate Take 667 mg by 0 Active (PHOSLO) 667 mg mouth 3 (three) capsule times a day with meals. pantoprazole Take 40 mg by mouth 0 Active (PROTONIX) 40 MG EC daily. tablet VITAMIN A ORAL Take 24,000 mcg by 0 Active mouth daily. cholecalciferol, Take 1 tablet by 0 Active vitamin D3, (VITAMIN mouth daily. D3) 5,000 unit tablet keTOROlac (ACULAR LS) Administer 1 drop 0 Active 0.4 % ophthalmic to both eyes 2 solution (two) times a day. brimonidine Administer 1 drop 0 Active (ALPHAGAN) 0.2 % to both eyes 2 ophthalmic solution (two) times a day. iron fum,ps cmp/vit Take by mouth 0 Active C/niacin (INTEGRA daily. ORAL) furosemide (LASIX) 20 Take 20 mg by mouth 0 Active mg tablet daily. Active Problems Not on file Encounters Date Type Specialty Care Team Description 05/27/2018 Hospital Encounter Procedural DevorahDavey ESRD (end stage Cardiology MD Balaji renal disease) ([facility]) 05/27/2018 Hospital Encounter Radiology AldodontaeDavey ESRD (end stage MD Balaji renal disease) ([facility]) 05/27/2018 Hospital Encounter Radiology Davey Ignacio ESRD (end stage MD Balaji renal disease) ([facility]) 05/27/2018 Hospital Encounter Radiology Davey Ignacio ESRD (end stage MD Balaji renal disease) ([facility]) 05/27/2018 Hospital Encounter Pulmonology Davey Ignacio ESRD (end stage MD Balaji renal disease) ([facility]) 05/27/2018 Hospital Encounter Transplant Davey Ignacio ESRD (end stage MD Balaji renal disease) ([facility]) 05/27/2018 Hospital Encounter Transplant Ivan Laureano MD 05/27/2018 Hospital Encounter Transplant Ivan Laureano MD 05/27/2018 Hospital Encounter Transplant Ivan Laureano MD Guerrero, Alex 05/27/2018 Hospital Encounter Transplant Davey Ignacio ESRD (end stage MD Balaji renal disease) ([facility]) 05/26/2018 Lab Lab Davey Ignacio MD 05/25/2018 Lab Lab Davey Ignacio MD 05/17/2018 Documentation Transplant Yeimi, Consent Forms ( Yolanda Scanned Consent For Kidney Transplant Evaluation, Pre Txp Education & MARLEE forms in Media. 05-11-2018) 05/11/2018 Hospital Encounter Transplant Jessie Aguirre ESRD (end stage MD Maday renal disease) ([facility]) 05/11/2018 Hospital Encounter Transplant Ivan Laureano ESRD (end stage MD Uli renal disease) ([facility]) (Primary Dx) 05/11/2018 Hospital Encounter Transplant Asked, No Pcp Ivan Laureano MD 05/11/2018 Hospital Encounter Transplant Asked, No Pcp 05/03/2018 Documentation Transplant [facility] 04/21/2018 Telephone Transplant Vandana Adam MA preemptive kidney referral- kidney txp referral after 05/28/2017 Social History Tobacco Use Types Packs/Day Years Used Date Never Smoker Smokeless Tobacco: Never Used Sex Assigned at Date Recorded Not on file Job Start Date Occupation Industry Not on file Not on file Not on file Travel History Travel Start Travel End No recent travel history available. Last Filed Vital Signs Vital Sign Reading Time Taken Blood Pressure 168/74 05/11/2018 7:39 AM [facility] Pulse 71 05/11/2018 7:39 AM [facility] Temperature 36.6 C (97.8 F) 05/11/2018 7:37 AM [facility] Respiratory Rate 16 05/11/2018 7:39 AM [facility] Oxygen Saturation 97% 05/11/2018 7:39 AM [facility] Inhaled Oxygen Concentration - - Weight 68 kg (150 lb) 05/27/2018 11:29 AM [facility] Height 162.6 cm (5' 4") 05/27/2018 11:29 AM [facility] Body Mass Index 25.75 05/27/2018 11:29 AM [facility] Plan of Treatment Health Maintenance Due Date Last Done Comments BREAST CANCER SCREENING 1999 SHINGRIX VACCINE (1 of 2) 1999 ZOSTER VACCINE 2009 PNEUMOCOCCAL POLYSACCHARIDE VACCINE 2014 AGE 65 AND OVER PNEUMOCOCCAL-13 2014 INFLUENZA VACCINE 01/27/2018 COLON CANCER SCREENING 05/26/2028 05/26/2018, 05/25/2018, 05/25/2018 Procedures Procedure Name Priority Date/Time Associated Comments Diagnosis ECHOCARDIOGRAM 2D Routine 05/27/2018 3:28 ESRD (end stage Results for this COMPLETE W MMODE PM [facility] renal disease) procedure are in SPECTRAL COLOR DOPPLER ([facility]) the results (86949) section. US RENAL Routine 05/27/2018 3:10 ESRD (end stage Results for this PM [facility] renal disease) procedure are in ([facility]) the results section. XR CHEST 2 VW Routine 05/27/2018 2:14 ESRD (end stage Results for this PM [facility] renal disease) procedure are in ([facility]) the results section. CT ABDOMEN PELVIS WO Routine 05/27/2018 1:09 ESRD (end stage Results for this CONTRAST PM [facility] renal disease) procedure are in ([facility]) the results section. SIX MINUTE WALK W/ PULSE Routine 05/27/2018 9:10 ESRD (end stage Results for this OXIMETRY AM [facility] renal disease) procedure are in ([facility]) the results section. ECG 12-LEAD Routine 05/27/2018 8:50 ESRD (end stage Results for this AM [facility] renal disease) procedure are in ([facility]) the results section. HLA AUTOLOGOUS Routine 05/27/2018 7:57 Results for this CROSSMATCH, AHG AM [facility] procedure are in the results section. ESTIMATED GFR Routine 05/27/2018 7:57 Results for this AM [facility] procedure are in the results section. ABORH - TRANSPLANT Routine 05/27/2018 7:57 ESRD (end stage Results for this AM [facility] renal disease) procedure are in ([facility]) the results section. PARATHYROID HORMONE Routine 05/27/2018 7:57 ESRD (end stage Results for this AM [facility] renal disease) procedure are in ([facility]) the results section. HSV TYPE 1/2 COMBINED Routine 05/27/2018 7:57 ESRD (end stage Results for this AB, IGM AM [facility] renal disease) procedure are in ([facility]) the results section. HSV 1 & 2 GLYCOPROTEIN G Routine 05/27/2018 7:57 ESRD (end stage Results for this AB, IGG AM [facility] renal disease) procedure are in ([facility]) the results section. HERPES SIMPLEX VIRUS BY Routine 05/27/2018 7:57 ESRD (end stage Results for this PCR AM [facility] renal disease) procedure are in ([facility]) the results section. SHERLY-HUGO VIRUS Routine 05/27/2018 7:57 ESRD (end stage Results for this ANTIBODY TEST AM [facility] renal disease) procedure are in ([facility]) the results section. CYTOMEGALOVIRUS AB, IGM Routine 05/27/2018 7:57 ESRD (end stage Results for this AM [facility] renal disease) procedure are in ([facility]) the results section. CYTOMEGALOVIRUS AB, IGG Routine 05/27/2018 7:57 ESRD (end stage Results for this AM [facility] renal disease) procedure are in ([facility]) the results section. HEMOGLOBIN A1C Routine 05/27/2018 7:57 ESRD (end stage Results for this AM [facility] renal disease) procedure are in ([facility]) the results section. LDH Routine 05/27/2018 7:57 ESRD (end stage Results for this AM [facility] renal disease) procedure are in ([facility]) the results section. PHOSPHORUS LEVEL Routine 05/27/2018 7:57 ESRD (end stage Results for this AM [facility] renal disease) procedure are in ([facility]) the results section. CREATININE LEVEL Routine 05/27/2018 7:57 ESRD (end stage Results for this AM [facility] renal disease) procedure are in ([facility]) the results section. FASTING GLUCOSE LEVEL Routine 05/27/2018 7:57 ESRD (end stage Results for this AM [facility] renal disease) procedure are in ([facility]) the results section. TRIGLYCERIDES Routine 05/27/2018 7:57 ESRD (end stage Results for this AM [facility] renal disease) procedure are in ([facility]) the results section. CHOLESTEROL Routine 05/27/2018 7:57 ESRD (end stage Results for this AM [facility] renal disease) procedure are in ([facility]) the results section. OCCULT BLOOD, STOOL Routine 05/26/2018 8:00 Results for this AM [facility] procedure are in the results section. OCCULT BLOOD, STOOL Routine 05/25/2018 12:00 Results for this PM [facility] procedure are in the results section. OCCULT BLOOD, STOOL Routine 05/25/2018 8:00 Results for this AM [facility] procedure are in the results section. HEPATITIS A ANTIBODY IGM Routine 05/11/2018 11:35 Results for this AM [facility] procedure are in the results section. ESTIMATED GFR Routine 05/11/2018 11:35 Results for this AM [facility] procedure are in the results section. SERUM ELECTROPHORESIS Routine 05/11/2018 11:35 ESRD (end stage Results for this AM [facility] renal disease) procedure are in ([facility]) the results section. C-PEPTIDE Routine 05/11/2018 11:35 ESRD (end stage Results for this AM [facility] renal disease) procedure are in ([facility]) the results section. TB T-SPOT Routine 05/11/2018 11:35 ESRD (end stage Results for this AM [facility] renal disease) procedure are in ([facility]) the results section. NICOTINE AND Routine 05/11/2018 11:35 ESRD (end stage Results for this METABOLITES, SERUM AM [facility] renal disease) procedure are in ([facility]) the results section. URINE DRUGS OF ABUSE Routine 05/11/2018 11:35 ESRD (end stage Results for this SCREEN AM [facility] renal disease) procedure are in ([facility]) the results section. ABORH - TRANSPLANT Routine 05/11/2018 11:35 ESRD (end stage Results for this AM [facility] renal disease) procedure are in ([facility]) the results section. PARTIAL THROMBOPLASTIN Routine 05/11/2018 11:35 ESRD (end stage Results for this TIME (PTT) AM [facility] renal disease) procedure are in ([facility]) the results section. PROTHROMBIN TIME WITH Routine 05/11/2018 11:35 ESRD (end stage Results for this INR AM [facility] renal disease) procedure are in ([facility]) the results section. HC COMPLETE BLD COUNT Routine 05/11/2018 11:35 ESRD (end stage Results for this W/AUTO DIFF AM [facility] renal disease) procedure are in ([facility]) the results section. SYPHILIS TREPONEMAL IGG Routine 05/11/2018 11:35 ESRD (end stage Results for this AM [facility] renal disease) procedure are in ([facility]) the results section. HEPATITIS C ANTIBODY Routine 05/11/2018 11:35 ESRD (end stage Results for this AM [facility] renal disease) procedure are in ([facility]CC) the results section. HEPATITIS B SURFACE AB, Routine 05/11/2018 11:35 ESRD (end stage Results for this QUANTITATIVE AM [facility] renal disease) procedure are in (HCC) the results section. HEPATITIS B SURFACE Routine 05/11/2018 11:35 ESRD (end stage Results for this ANTIGEN AM [facility] renal disease) procedure are in (HCC) the results section. HEPATITIS B SURFACE Routine 05/11/2018 11:35 ESRD (end stage Results for this ANTIBODY AM [facility] renal disease) procedure are in (HCC) the results section. HEPATITIS B CORE Routine 05/11/2018 11:35 ESRD (end stage Results for this ANTIBODY TOTAL AM [facility] renal disease) procedure are in ([facility]) the results section. HEPATITIS A ANTIBODY Routine 05/11/2018 11:35 ESRD (end stage Results for this TOTAL AM [facility] renal disease) procedure are in (HCC) the results section. HIV AG/AB COMBINATION Routine 05/11/2018 11:35 ESRD (end stage Results for this AM [facility] renal disease) procedure are in (HCC) the results section. URINALYSIS SCREEN AND Routine 05/11/2018 11:35 ESRD (end stage Results for this MICROSCOPY, WITH REFLEX AM [facility] renal disease) procedure are in TO CULTURE ([facility]) the results section. COMPREHENSIVE METABOLIC Routine 05/11/2018 11:35 ESRD (end stage Results for this PANEL AM [facility] renal disease) procedure are in ([facility]) the results section. GRAM STAIN Routine 05/11/2018 10:42 Results for this AM [facility] procedure are in the results section. URINE CULTURE Routine 05/11/2018 10:42 Results for this AM [facility] procedure are in the results section. after 05/28/2017 Results Echocardiogram complete w contrast and 3D if needed (05/27/2018 3:28 PM [facility]) Narrative Performed At [facility] Echocardiography Report [id number]Name:NAVNEET VILLAGRAN.ID:[id number] .Date: 05/27/2018Refer.MD:DAVEY IGNACIO MD Exam Time: 2:39:00 PMStudy Type:Routine Echo Height:64inWeight: 150lb BSA: 1.73 m2 DOBAge:1949,68Y Sex: FEMALEBP: 177/74 HR:71 bpm Sonogrphr: PAIGE Buitrago/ Jose Jimenez (Student) Pat. Stat.:OutpatientStudy Status:Final Echo Event ID:[id number] Order ID:[id number] Reason for Study:Renal Transplant Evaluation Dx,ESRD (end stage renal disease) (HCC) [N18.6 (ICD-10-CM)] Procedures:2D Echo, Colorflow Doppler, Strain SUMMARY: Normal biventricular chamber size and systolic function There is mild concentric LV hypertrophy. Diastolic dysfunction Grade II (Moderate): Impaired relaxation with elevated LV filling pressures. LA volume is mildly enlarged. No hemodynamically significant valvular pathology. FINDINGS: LV: LV size is normal. There is mild concentric LV hypertrophy. LVEF is normal. Overall wall motion is normal. Estimated EFis 65-69% LV GLS is normal at -19.3% RV: RV size is normal. RV systolic function is normal. LA: LA volume is mildly enlarged. RA: RA size is normal. AO: Aortic root diameter is normal. VENU: No pericardial effusion. AV: No structural AV abnormalities noted. MV: No structural MV abnormalities noted. A trace of mitral regurgitation. PV: No structural PV abnormalities noted. A trace of pulmonic regurgitation. TV: No structural TV abnormalities noted. A trace of tricuspid regurgitation Servin: Diastolic dysfunction Grade II (Moderate): Impaired relaxationwith elevated LV filling pressures. Other:Insufficient TR jet to estimate PA systolic pressure. MEASUREMENTS: 2D Parasternal [place] LVOT 1.9 cmLA Ds 3.7 cm LVIDd4.7 cmIndex 2.7 cm/m Ao An2 cm LVIDs2.7 cmLV Mass 187.5 g(87-129) LV%fs 42.6 % LVM Index 108.4 g/m2 IVSd 1.1 cmRWT 0.5 LVPWd1.1 cmAo Rtd 3 cm Index1.8 cm/m LA Sng Plane LA Area 19.7 cm2(8.8-23.4) LA Vol58.9 ml Index34 ml/m LA LngAx 5.2 cm RA Sng Plane RA Area 13.7 cm2(8.3-19.5) RA Vol 30 ml Index17.4 ml/m RA LngAx 5.3 cm DOPPLER LVOT Stroke Vol LVOT 1.9 cmLVOT CO 5.5 l/min LVOT TVI27.1 cmLVOT CI 3.2 l/m/m2 LVOT Tm356 msecHR 72 bpm LVOT SV 77 ml MV E/A Ratio MV pkE 102.7 cm/s (60-130) MV E/A 0.9 MV pkA 118.3 cm/s Signed 05/28/2018 08:06 AM Santo Courtney MD Procedure Note Interface, Radiology Results In - 05/28/2018 8:07 AM [facility] Echocardiography Report [id number] [place] [address] Pat.Name: NAVNEET VILLAGRAN Pat.ID: [id number] .Date: 05/27/2018 Refer.MD: DAVEY IGNACIO MD Exam Time: 2:39:00 PM Study Type:Routine Echo Height: 64in Weight: 150lb BSA: 1.73 m2 Age: 11 1950,68Y Sex: FEMALE BP: 177/74 HR: 71 bpm Sonogrphr: PAIGE Buitrago/ Jose Jimenez (Student) Pat. Stat.:Outpatient Study Status:Final Echo Event ID:[id number] Order ID: [id number] Reason for Study:Renal Transplant Evaluation Dx,ESRD (end stage renal disease) (HCC) [N18.6 (ICD-10-CM)] Procedures:2D Echo, Colorflow Doppler, Strain SUMMARY: Normal biventricular chamber size and systolic function There is mild concentric LV hypertrophy. Diastolic dysfunction Grade II (Moderate): Impaired relaxation with elevated LV filling pressures. LA volume is mildly enlarged. No hemodynamically significant valvular pathology. FINDINGS: LV: LV size is normal. There is mild concentric LV hypertrophy. LV EF is normal. Overall wall motion is normal. Estimated EF is 65-69% LV GLS is normal at -19.3% RV: RV size is normal. RV systolic function is normal. LA: LA volume is mildly enlarged. RA: RA size is normal. AO: Aortic root diameter is normal. VENU: No pericardial effusion. AV: No structural AV abnormalities noted. MV: No structural MV abnormalities noted. A trace of mitral regurgitation. PV: No structural PV abnormalities noted. A trace of pulmonic regurgitation. TV: No structural TV abnormalities noted. A trace of tricuspid regurgitation Servin: Diastolic dysfunction Grade II (Moderate): Impaired relaxation with elevated LV filling pressures. Other: Insufficient TR jet to estimate PA systolic pressure. MEASUREMENTS: 2D Parasternal [place] LVOT 1.9 cm LA Ds 3.7 cm LVIDd 4.7 cm Index 2.7 cm/m Ao An 2 cm LVIDs 2.7 cm LV Mass 187.5 g (87-129) LV%fs 42.6 % LVM Index 108.4 g/m2 IVSd 1.1 cm RWT 0.5 LVPWd 1.1 cm Ao Rtd 3 cm Index 1.8 cm/m LA Sng Plane LA Area 19.7 cm2 (8.8-23.4) LA Vol 58.9 ml Index 34 ml/m LA LngAx 5.2 cm RA Sng Plane RA Area 13.7 cm2 (8.3-19.5) RA Vol 30 ml Index 17.4 ml/m RA LngAx 5.3 cm DOPPLER LVOT Stroke Vol LVOT 1.9 cm LVOT CO 5.5 l/min LVOT TVI 27.1 cm LVOT CI 3.2 l/m/m2 LVOT Tm 356 msec HR 72 bpm LVOT SV 77 ml MV E/A Ratio MV pkE 102.7 cm/s (60-130) MV E/A 0.9 MV pkA 118.3 cm/s Signed 05/28/2018 08:06 AM Santo Courtney MD Performing Organization Address City/State/Zipcode Phone Number [facility] [address] [place] [address] Renal (05/27/2018 3:10 PM [facility]) Narrative Performed At EXAMINATION: RENAL [facility]IANT CLINICAL HISTORY:N18.6 End stage renal disease, Renal Transplant Evaluation COMPARISON:None. FINDINGS: 1. Right kidney measures 9.8 cm in length. Left kidney measures 10.3 cm in length. 2.There is no hydronephrosis in either kidney. 3.There is a mild decrease in cortical thickness on each side. There is normal cortical echogenicity. 4.There is an 8 millimeter cyst on the right side. 5.No solid mass identified in either kidney. 6.Urinary bladder is not distended. IMPRESSION: Mild renal cortical atrophy; otherwise unremarkable examination. [id number] Procedure Note Interface, Radiology Results Incoming - 05/27/2018 5:15 PM [facility] EXAMINATION: US RENAL CLINICAL HISTORY: N18.6 End stage renal disease, Renal Transplant Evaluation COMPARISON: None. FINDINGS: 1. Right kidney measures 9.8 cm in length. Left kidney measures 10.3 cm in length. 2. There is no hydronephrosis in either kidney. 3. There is a mild decrease in cortical thickness on each side. There is normal cortical echogenicity. 4. There is an 8 millimeter cyst on the right side. 5. No solid mass identified in either kidney. 6. Urinary bladder is not distended. IMPRESSION: Mild renal cortical atrophy; otherwise unremarkable examination. [id number] Performing Organization Address [facility] Phone Number [facility] [address] [place] [address] XR Chest 2 Vw (05/27/2018 2:14 PM [facility]) Narrative Performed At [facility] CLINICAL INDICATION:N18.6 End stage renal disease, Renal Transplant Evaluation COMPARISON:None available IMPRESSION: The lungs are clear without acute cardiopulmonary disease. Heart and mediastinal contours are within normal limits. Bones are unremarkable. Thank you for allowing us to participate in the care of your patient. [facility]-[id number] Procedure Note Hm Interface, Radiology Results Incoming - 05/27/2018 2:21 PM [facility] XR CHEST 2 VW CLINICAL INDICATION: N18.6 End stage renal disease, Renal Transplant Evaluation COMPARISON: None available IMPRESSION: The lungs are clear without acute cardiopulmonary disease. Heart and mediastinal contours are within normal limits. Bones are unremarkable. Thank you for allowing us to participate in the care of your patient. [facility]-[id number] Performing Organization Address [facility] Phone Number [facility] [address] [place] [address] CT Abdomen Pelvis Wo Contrast (05/27/2018 1:09 PM [facility]) Narrative Performed At EXAMINATION:CT ABDOMEN PELVIS WO [facility]AST [facility] CLINICAL HISTORY:N18.6 End stage renal disease, kidney transplant evaluation TECHNIQUE:Multiple axial images of the abdomen and pelvis were obtained without intravenous administration of iodinated contrast. Sagittal and coronal computerized reformatted images were also obtained. The lack of intravenous contrast reduces the sensitivity of detecting solid organ disease. CT scans are performed using radiation dose reduction techniques. Technical factors are evaluated and adjusted to ensure appropriate moderation of exposure. Automated dose management technology is applied to adjust radiation exposure while achieving a diagnostic quality image COMPARISON:None. FINDINGS: Abdomen: Scans the liver were unremarkable.There appears to be fine granular stone material in the gallbladder. Spleen is normal in size. Pancreas is marginally visualized with no definite abnormality. There is mild bilateral hypertrophy of the adrenal glands.Right kidney demonstrated no stone mass or obstruction. Left kidney demonstrated no stone definite mass or obstruction.There was some minimal perinephric fluid suggesting a small hematoma.Correlation for recent kidney biopsy recommended. Abdominal aorta was atherosclerotic with no aneurysm or significant periaortic adenopathy.There is artifact from spinal instrumentation.There are no signs of bowel obstruction. Pelvis: Terminal ileum cecum and appendix are normal. There is no pelvic mass or definite fluid collection.There is no sidewall adenopathy. IMPRESSION: Minimal perinephric fluid on the left. [id number] Procedure Note Hm Interface, Radiology Results Incoming - 05/27/2018 1:22 PM [facility] EXAMINATION: CT ABDOMEN PELVIS WO CONTRAST CLINICAL HISTORY: N18.6 End stage renal disease, kidney transplant evaluation TECHNIQUE: Multiple axial images of the abdomen and pelvis were obtained without intravenous administration of iodinated contrast. Sagittal and coronal computerized reformatted images were also obtained. The lack of intravenous contrast reduces the sensitivity of detecting solid organ disease. CT scans are performed using radiation dose reduction techniques. Technical factors are evaluated and adjusted to ensure appropriate moderation of exposure. Automated dose management technology is applied to adjust radiation exposure while achieving a diagnostic quality image COMPARISON: None. FINDINGS: Abdomen: Scans the liver were unremarkable. There appears to be fine granular stone material in the gallbladder. Spleen is normal in size. Pancreas is marginally visualized with no definite abnormality. There is mild bilateral hypertrophy of the adrenal glands. Right kidney demonstrated no stone mass or obstruction. Left kidney demonstrated no stone definite mass or obstruction. There was some minimal perinephric fluid suggesting a small hematoma. Correlation for recent kidney biopsy recommended. Abdominal aorta was atherosclerotic with no aneurysm or significant periaortic adenopathy. There is artifact from spinal instrumentation. There are no signs of bowel obstruction. Pelvis: Terminal ileum cecum and appendix are normal. There is no pelvic mass or definite fluid collection. There is no sidewall adenopathy. IMPRESSION: Minimal perinephric fluid on the left. [facility]-[id number] Performing Organization Address City/State/Zipcode Phone Number [facility] [address] [place] [address] Six minute walk w/ pulse oximetry (05/27/2018 9:10 AM DRYERMAN/WOMAN) Heart Rate at Rest 78.00 1/min [facility] SPO2 at Rest 98.00 % [facility] Supplemental O2 at Rest 0.00 L/min [facility] Heart Rate after 1 minute 76.00 1/min [facility] SPO2 after 1 minute 97.00 % [facility] Supplemental O2 after 1 minute 0.00 L/min [facility] Heart Rate after 2 minutes 80.00 1/min [facility] SPO2 after 2 minutes 97.00 % [facility] Supplemental O2 after 2 minutes 0.00 L/min [facility] Heart Rate after 3 minutes 84.00 1/min [facility] SPO2 after 3 minutes 98.00 % [facility] Supplemental O2 after 3 minutes 0.00 L/min [facility] Heart Rate after 4 minutes 86.00 1/min [facility] SPO2 after 4 minutes 97.00 % [facility] Supplemental O2 after 4 minutes 0.00 L/min [facility] Heart Rate after 5 minutes 88.00 1/min [facility] SPO2 after 5 minutes 98.00 % [facility] Supplemental O2 after 5 minutes 0.00 L/min [facility] Heart Rate after 6 minutes 89.00 1/min [facility] Highest Heart Rate 89.00 1/min [facility] SPO2 after 6 minutes 96.00 % [facility] Lowest SpO2 96.00 % [facility] Premature Stop 0.00 [facility] Supplemental O2 after 6 minutes 0.00 L/min [facility] Lap Count 8.00 [facility] Six Minute Walk Distance Predicted 450 [facility] Narrative Performed At Performing Organization Address City/State/Zipcode Phone Number [facility] [address] [place] [address] ECG 12 lead (05/27/2018 8:50 AM DRYERMAN/WOMAN) Ventricular rate 75 [facility] Atrial rate 75 [facility] [place] interval 156 [facility] QRSD interval 100 [facility] QT interval 406 [facility] QTC interval 453 [facility] P axis 1 75 [facility] QRS axis 1 65 [facility] T wave axis 53 [facility] EKG impression Normal sinus rhythm-Normal ECG-No previous [facility] ECGs available- Narrative Performed At Performing Organization Address [facility]/Zipcode Phone Number [facility] [address] [place] [address] Estimated GFR (05/27/2018 7:57 AM DRYERMAN/WOMAN)Only the most recent of2 resultswithin the time period is included. Estimated GFR 12 (A) mL/min/1.73 m2 [facility] Comment: HOSPITAL CatergoryUnitsInterpretation G1 >=90 Normal or high G2 60-89Mildly decreased [id number] to moderately decreased L2p30-92Jfltxvmdgk to severely decreased G4 15-29Severely decreased G5 <15Kidney failure The eGFR was calculated using the Chronic Kidney Disease Epidemiology Collaboration (CKD-EPI) equation. Interpretation is based on recommendations of the National Kidney Foundation-Kidney Disease Outcomes Quality Initiative (NKF-KDOQI) published in 2014. Specimen Plasma specimen Performing Organization Address [facility] Phone Number [facility] DEPARTMENT OF PATHOLOGY AND [address] [place] [address] HSV 1 & 2 glycoprotein G Ab, IgG (05/27/2018 7:57 AM DRYERMAN/WOMAN) HSV 1 glycoprotein G Ab, Positive (A) Negative [facility] IgG Comment: HOSPITAL Positive results may indicate current or past HSV infection. For acute illness, viral PCR and IgM testing are recommended. Individuals infected with HSV may not exhibit detectable antibodies in cases of early infection. HSV 2 glycoprotein G Ab, NegativeComment: Negative [facility] IgG Negative: No IgG HOSPITAL antibodies to HSV2 detected. Specimen Serum Performing Organization Address [facility] Phone Number [facility] DEPARTMENT OF PATHOLOGY AND [address] [place] [address] Sherly-Hugo virus antibody test (05/27/2018 7:57 AM DRYERMAN/WOMAN) EBV Ab to viral capsid Ag, Positive (A) Negative [facility] IgG [facility] EBV Ab to viral capsid Ag, Negative Negative [facility] IgM [facility] EBV Ab to nuclear Ag, IgG Positive (A) Negative [facility] EBV Ab to early (D) Ag, IgG Positive (A) Negative [facility] Sherly-Hugo virus antibody SEE COMMENT [facility] interpretation Comment: HOSPITAL Infection Status: Results may suggest EBV reactivation, although a recent primary EBV infection is not excluded. Specimen Serum Performing Organization Address City/State/Zipcode Phone Number [facility] DEPARTMENT OF PATHOLOGY AND [address] [place] [phone] [facility] [address] [address] HSV type 1/2 combined Ab, IgM (05/27/2018 7:57 AM DRYERMAN/WOMAN) HSV 1/2 combined Ab, IgM 1.08 (H) <=0.89 IV [facility] Comment: INTERPRETIVE INFORMATION: Herpes Simplex Virus Type 1 and/or 2 Antibodies, IgM by STEPHANIE 0.89 IV or Less .......... Not Detected 0.90 - 1.09 IV ........... Indeterminate- Repeat testing in 10-14 days may be helpful. 1.10 IV or Greater ....... Detected-IgM antibody to HSV detected, which may indicate a current or recent infection. However, low levels of IgM antibodies may occasionally persist for more than 12 months post- infection. Performed by [facility], [address] [place] [phone] www.[employer], Soto Jasmine MD - Lab. Director Specimen Serum Performing Organization Address [facility] Phone Number [facility] [address] [place] [address] [place] [facility] [address] [place] [address] HLA autologous crossmatch, AHG (05/27/2018 7:57 AM DRYERMAN/WOMAN) [facility] DEPARTMENT OF PATHOLOGY AND GENOMIC MEDICINE HLA autologous crossmatch See link below for PDF [facility] DEPARTMENT OF Lab Report PATHOLOGY AND GENOMIC MEDICINE Performing Organization Address City/[facility]/Zipcode Phone Number [facility] DEPARTMENT OF PATHOLOGY AND [address] [place] [address] [facility] Herpes simplex virus by PCR (05/27/2018 7:57 AM DRYERMAN/WOMAN) Herpes virus, PCR Not-Detected Not-Detected [facility] Herpes virus, PCR See link below for PDF Lab [facility] ReportComment: Performing Organization Address City/State/Zipcode Phone Number [facility] DEPARTMENT OF PATHOLOGY AND [address] [place] [phone] [place] [address] Cytomegalovirus Ab, IgM (05/27/2018 7:57 AM DRYERMAN/WOMAN) Cytomegalovirus Ab, IgM Negative Negative [facility] Specimen Serum Performing Organization Address City/[facility] Phone Number [facility] DEPARTMENT OF PATHOLOGY AND [address] [place] [address] ABORh - transplant (05/27/2018 7:57 AM DRYERMAN/WOMAN)Only the most recent of2 resultswithin the time period is included. ABO grouping O [facility] Rh type POS [facility] Specimen Blood Performing Organization Address [facility] Phone Number [facility] DEPARTMENT OF PATHOLOGY AND [address] [place] [phone] Cytomegalovirus Ab, IgG (05/27/2018 7:57 AM DRYERMAN/WOMAN) Cytomegalovirus Ab, IgG NegativeComment: Negative; Negative [facility] CMV IgG antibodies were HOSPITAL detected. Specimen Serum Performing Organization Address [facility] Phone Number [facility] DEPARTMENT OF PATHOLOGY AND [address] [place] [phone] Triglycerides (05/27/2018 7:57 AM DRYERMAN/WOMAN) Triglycerides 95 <150 mg/dL [facility] Specimen Plasma specimen Performing Organization Address City/[facility] Phone Number [facility] DEPARTMENT OF PATHOLOGY AND [address] [place] [phone] Phosphorus level (05/27/2018 7:57 AM DRYERMAN/WOMAN) Phosphorus 4.8 (H) 2.4 - 4.5 mg/dL [facility] Specimen Plasma specimen Performing Organization Address [facility] Phone Number [facility] DEPARTMENT OF PATHOLOGY AND [address] [place] [phone] Parathyroid hormone (05/27/2018 7:57 AM DRYERMAN/WOMAN) PTH 88 (H) 15 - 65 pg/mL [facility] Specimen Blood Performing Organization Address City/[facility]/Zipcode Phone Number [facility] DEPARTMENT OF PATHOLOGY AND [address] [place] [address] LDH (05/27/2018 7:57 AM DRYERMAN/WOMAN) LDH 215 87 - 225 U/L [facility] Specimen Plasma specimen Performing Organization Address City/[facility] Phone Number [facility] DEPARTMENT OF PATHOLOGY AND [address] [place] [phone] [place] [phone] Hemoglobin A1c (05/27/2018 7:57 AM DRYERMAN/WOMAN) Hemoglobin A1C 6.4 (H) 4.0 - 5.6 % [facility] Comment: HbA1c cutoffs for diagnosing diabetes: 4.0% - 5.6%=normal 5.7% - 6.4%=increased risk for diabetes (prediabetes) >=6.5%=diabetes Goals for glycemic control (ADA 2016) < 7.0%Target for non adults with diabetes. More or less stringent targets may be appropriate for individual patients. <7.5% Target for Children and adolescents with type 1 diabetes. Specimen Blood Performing Organization Address City/[facility] Phone Number [facility] DEPARTMENT OF PATHOLOGY AND [address] [place] [address] Fasting glucose level (05/27/2018 7:57 AM DRYERMAN/WOMAN) Glucose, fasting 177 (H) 65 - 99 mg/dL [facility] Specimen Blood Performing Organization Address City/[facility]/Zipcode Phone Number [facility] DEPARTMENT OF PATHOLOGY AND [address] [place] [phone] [place] [address] Creatinine level (05/27/2018 7:57 AM DRYERMAN/WOMAN) Creatinine 3.64 (H) 0.50 - 0.90 mg/dL [facility] Specimen Plasma specimen Performing Organization Address City/[facility]/Zipcode Phone Number [facility] DEPARTMENT OF PATHOLOGY AND [address] [place] [address] [address] Cholesterol (05/27/2018 7:57 AM DRYERMAN/WOMAN) Cholesterol 124 <200 mg/dL [facility] Specimen Plasma specimen Performing Organization Address City/State/Zipcode Phone Number [facility] DEPARTMENT OF PATHOLOGY AND [address] [place] [phone] [place] [phone] Occult blood, stool (05/26/2018 8:00 AM DRYERMAN/WOMAN)Only the most recent of3 resultswithin the time period is included. Occult blood, stool Negative for occult blood. [facility] Comment: Specimen Information Specimen Source: Stool Specimen Site: Nonpreserved Specimen Stool - Nonpreserved Performing Organization Address City/[facility] Phone Number [facility] DEPARTMENT OF PATHOLOGY AND [address] [place] [phone] Syphilis treponemal IgG (05/11/2018 11:35 AM DRYERMAN/WOMAN) Syphilis treponemal IgG Non-reactiveComment: Non-reactive [facility] Non-reactive: No HOSPITAL serological evidence of Syphilis infection Specimen Serum Performing Organization Address City/[facility] Phone Number [facility] DEPARTMENT OF PATHOLOGY AND [address] [place] [phone] Urinalysis screen and microscopy, with reflex to culture (05/11/2018 11:35 AM DRYERMAN/WOMAN) Specimen site Clean catch [facility] Color, UA Straw [facility] Appearance, UA Clear [facility] Specific gravity, UA 1.010 1.001 - 1.035 [facility] pH, UA 6.0 5.0 - 8.5 [facility] Protein, UA 2+ (A) Negative [facility] Glucose, UA 2+ (A) Negative [facility] Ketones, UA Negative Negative [facility] Bilirubin, UA Negative Negative [facility] Blood, UA Negative Negative [facility] Nitrite, UA Negative Negative [facility] Urobilinogen, UA <2.0 <2.0 [facility] Leukocyte esterase, UA Trace (A) Negative [facility] Epithelial cells, UA 1 /HPF [facility] WBC, UA 11 (H) 0 - 4 /HPF [facility] RBC, UA <1 0 - 5 /HPF [facility] Bacteria, UA Few None seen [facility] Yeast, UA None seen [facility] Yeast with pseudohyphae, UA None seen [facility] Specimen Urine Performing Organization Address City/State/Zipcode Phone Number [facility] DEPARTMENT OF PATHOLOGY AND [address] [place] [address] HIV Ag/Ab combination (05/11/2018 11:35 AM DRYERMAN/WOMAN) HIV Ag/Ab combination Non-reactive Non-reactive [facility] Specimen Blood Performing Organization Address City/[facility] Phone Number [facility] DEPARTMENT OF PATHOLOGY AND [address] [place] [address] TB T-SPOT (05/11/2018 11:35 AM DRYERMAN/WOMAN) TB T-SPOT SEE NOTE [facility] Comment: T-SPOT TUBERCULOSIS Nil Control: 0 Panel A: 0 Panel B: 0 Positive Control: TMTC Result:NEGATIVE NOTE: TMTC INDICATES TOO MANY SPOTS TO COUNT SAT INDICATES THE WELL WAS SATURATED RESULTS INTERPRETATION: RESULTS ARE NEGATIVE WHEN (PANEL A-NIL) OR (PANEL B-NIL) <=4 SPOTS, INCLUDING VALUES LESS THAN ZERO. RESULTS ARE POSITIVE WHEN (PANEL A-NIL) OR (PANEL B-NIL) >=8 SPOTS RESULTS ARE BORDERELINE WHEN EITHER (PANEL A-NIL) OR (PANEL B-NIL)=5,6,0R 7. THE TEST IS INVALID WHEN EITHER OF THE FOLLOWING CONDITIONS IS MET: 1.) THE NIL CONTROL HAS >10 SPOTS 2.) THE MITOGEN (POSITIVE CONTROL) HAS <20 SPOTS AND BOTH (PANEL A-NIL) AND (PANEL B-NIL) <=4 SPOTS. M. TUBERCULOSIS INFECTION UNLIKELY, BUT CANNOT BE EXCLUDED ESPECIALLY WHEN: 1. ANY ILLNESS IS CONSISTENT WITH TB DISEASE. 2. LIKELIHOOD OF PROGRESSION TO DISEASE (e.g. DUE TO IMMUNOSUPPRESSION) IS INCREASED. LIMITATIONS: DIAGNOSING OR EXCLUDING TUBERCULOSIS DISEASE, AND ASSESSING THE PROBABILITY OF LTBI, REQUIRES A COMBINATION OF EPIDEMIOLOGICAL, HISTORICAL, MEDICAL, AND DIAGNOSTIC FINDINGS THAT SHOULD BE TAKEN INTO ACCOUNT WHEN INTERPRETING T-SPOT.TB REFER TO THE MOST RECENT CDC GUIDANCE (HTTP: //WWW.CDC.GOV/NCHSTP/TB) FOR DETAILED RECOMMENDATIONS ABOUT DIAGNOSING TB INFECTION (INCLUDING DISEASE) AND SELECTING PERSONS FOR TESTING. 1.) A FALSE NEGATIVE RESULT CAN BE CAUSED BY INCORRECT BLOOD SAMPLE COLLECTION OR IMPROPER HANDLING OF THE SPECIMEN, AFFECTING LYMPHOCYTE FUNCTION 2.) THE PERFORMANCE OF T-SPOT.TB HAS NOT BEEN ADEQUATELY EVALUATED WITH SPECIMENS FROM INDIVIDUALS YOUNGER THANAGE 17 YEARS, IN WOMEN, AND IN PATIENTS WITH HEMOPHILIA. 3-) A FALSE POSITIVE RESULT WAS OBTAINED FOR T-SPOT.TB WHEN TESTED IN SUBJECTS WITH M. XENOPI, M. KANSASII, AND M. GORDONAE.WHILE ESAT-6 AND CFP-10 ANTIGENS ARE ABSENT FROM BCG STRAINS OF M. BOVIS AND FROM MOST ENVIRONMENTAL MYCOBACTERIA, IT IS POSSIBLE THAT A POSITIVE T-SPOT.TB RESULT MAY BE DUE TO INFECTION WITH M. KANSASII, M. SZULGAI, M. GORDONAE, OR M. MARINUM. ALTERNATIVE TESTS WOULD BE REQUIRED IF THESE INFECTIONS ARE SUSPECTED. 4.) A NEGATIVE TEST RESULT DOES NOT EXCLUDE THE POSSIBILITY OF EXPOSURE TO, OR INFECTION WITH, M. TUBERCULOSIS. PATIENTS WITH RECENT EXPOSURE TO TB INFECTED INDIVIDUALS EXHIBITING A NEGATIVE T-SPOT.TB RESULT SHOULD BE CONSIDERED FOR RETESTING WITHIN 6 WEEKS OR IF OTHER RELEVANT CLINICAL SYMPTOMS INDICATE POSSIBLE INFECTION. 5.) A POSITIVE TEST RESULT DOES NOT RULE IN ACTIVE TB DISEASE; OTHER TESTS SHOULD BE PERFORMED TO CONFIRM THE DIAGNOSIS OF ACTIVE TB DISEASE SUCH SPUTUM SMEAR AND CULTURE, PCR AND CHEST RADIOGRAPHY. 6.) T-SPOT.TB TEST HAS NOT BEEN EVALUATED IN SUBJECTS WHO HAVE RECEIVED >1 MONTH OF ANTI-TB THERAPY. 7. ) REFRIGERATED AND FROZEN SAMPLES ARE NOT RECOMMENDED FOR USE WITH T=SPOT.TB TEST. Performed by: [facility] Molecular Tuberculosis Laboratory [facility] ([id number]) [place], [place] [address] Specimen Blood Performing Organization Address City/State/Zipcode Phone Number [facility] DEPARTMENT OF PATHOLOGY AND [address] [place] [phone] GENOMIC MEDICINE [facility] Nicotine and metabolites, serum (05/11/2018 11:35 AM DRYERMAN/WOMAN) Nicotine <2.0 0.0 - 2.0 ng/mL [facility] Cotinine <2.0 0.0 - 2.0 ng/mL [facility] 9-PM-nssfyhdk <5.0 0.0 - 5.0 ng/mL [facility] Comment: HOSPITAL This test was developed and its performance characteristics determined by the Department of Pathology and Genomic Medicine, [facility]. Serum nicotine and its metabolites cotinine and 9-FA-ayfibcdl are tested by HPLC tandem mass spectrometry. It has not been cleared or approved by FDA. The laboratory is regulated under CLIA as qualified to perform high-complexity testing. This test is used for clinical purposes. It should not be regarded as investigational or for research. Specimen Blood Performing Organization Address City/[facility] Phone Number [facility] DEPARTMENT OF PATHOLOGY AND [address] [place] [address] GENOMIC MEDICINE [address] [address] Hepatitis B surface Ab, quantitative (05/11/2018 11:35 AM DRYERMAN/WOMAN) Hepatitis B surface Ab <3.10 IU/L [facility] Comment: The anti-HBs is less than 10 IU/L and is therefore negative. There is no evidence of recovery from hepatitis B infection or evidence of antibody response to HBV vaccination. An anti-HBs result greater than or equal to 10 IU/L implies immunity. For post-vaccination antibody testing guidelines for the general public refer to MMWR June 20, 2005/Vol. 54(No. 16);1-23, and for healthcare workers refer to MMWR June 17, 2013/Vol. 62(No. 10);1-19. Reference Interval: anti-HBs 9.99 IU/L or less ....... Negative 10.00 IU/L or greater .... Positive Results greater than 1,000.00 IU/L are reported as greater than 1,000.00 IU/L. This assay should not be used for blood donor screening, associated re-entry protocols, or for screening Human Cell, Tissues and Cellular and Tissue-Based Products (HCT/P). Performed by [facility], [address] [place] [address] [phone] www.[employer], Soto Jasmine MD - Lab. Director Specimen Serum Performing Organization Address [facility]/Zipcode Phone Number [facility] [address] [place] [address] [facility] [address] [place] [address] Hepatitis C antibody (05/11/2018 11:35 AM DRYERMAN/WOMAN) Hepatitis C Ab Non-reactive Non-reactive [facility] Specimen Blood Performing Organization Address City/[facility] Phone Number [facility] DEPARTMENT OF PATHOLOGY AND [address] [place] [phone] Hepatitis A antibody IgM (05/11/2018 11:35 AM DRYERMAN/WOMAN) Hepatitis A IgM Non-reactive Non-reactive [facility] Performing Organization Address City/[facility] Phone Number [facility] DEPARTMENT OF PATHOLOGY AND [address] [place] [phone] [place] [phone] Hepatitis A antibody total (05/11/2018 11:35 AM DRYERMAN/WOMAN) Hepatitis A total Ab Reactive (A) Non-reactive [facility] Comment: HOSPITAL Hepatitis A Total Antibody reactive. Hepatitis A IgM antibody will be performed and reported separately when completed. Specimen Blood Performing Organization Address [facility] Phone Number [facility] DEPARTMENT OF PATHOLOGY AND [address] [place] [address] Hepatitis B core antibody total (05/11/2018 11:35 AM DRYERMAN/WOMAN) Hepatitis B core total Ab Non-reactive Non-reactive [facility] Specimen Blood Performing Organization Address City/[facility] Phone Number [facility] DEPARTMENT OF PATHOLOGY AND [address] [place] [address] C-peptide (05/11/2018 11:35 AM DRYERMAN/WOMAN) C-peptide 11.0 (H) 1.1 - 4.4 ng/mL [facility] Specimen Plasma specimen Performing Organization Address City/[facility] Phone Number [facility] DEPARTMENT OF PATHOLOGY AND [address] [place] [phone] Urine drugs of abuse screen (05/11/2018 11:35 AM DRYERMAN/WOMAN) Amphetamine screen, urine Negative [facility] Barbiturate screen, urine Negative [facility] Benzodiazepine screen, Negative [facility] Cannabinoid screen, urine Negative [facility] Cocaine screen, urine Negative [facility] Methadone metabolite Negative [facility] (EDDP), urine HOSPITAL Opiates screen, urine Negative [facility] Oxycodone screen, urine Negative [facility] Phencyclidine screen, urine Negative [facility] Tricyclic screen, urine Negative [facility] Comment: HOSPITAL Drug screen minimum concentration of detectability Lxpdypffvgiu8319 ng/mL Barbiturates 200 ng/mL Prelnrdzsinakfs819 ng/mL Ovaxhzo001 ng/mL Ekswghrmi928 ng/mL Tqmiiim543 ng/mL Qudqcuzeh743 ng/mL Phencyclidine 25 ng/mL Diosdeiulgim85 ng/mL Alusjxswcp3696 ng/mL Negative test results indicates presumptive evidence of lack of clinically significant drug concentration in this urine specimen. Positive test results are presumptive evidence of clinically significant drug concentration in this urine specimen. Testing performed for medical purposes only. Specimen Urine Performing Organization Address [facility] Phone Number [facility] DEPARTMENT OF PATHOLOGY AND [address] [place] [phone] Hepatitis B surface antibody (05/11/2018 11:35 AM DRYERMAN/WOMAN) Hepatitis B surface Ab Non-reactive Non-reactive [facility] Specimen Blood Performing Organization Address [facility] Phone Number [facility] DEPARTMENT OF PATHOLOGY AND [address] [place] [phone] Hepatitis B surface antigen (05/11/2018 11:35 AM DRYERMAN/WOMAN) Hepatitis B surface Ag Non-reactive Non-reactive [facility] Specimen Blood Performing Organization Address City/[facility] Phone Number [facility] DEPARTMENT OF PATHOLOGY AND [address] [place] [address] Partial thromboplastin time, activated (05/11/2018 11:35 AM DRYERMAN/WOMAN) PTT 31.7 23.0 - 36.0 sec [facility] Comment: PTT therapeutic range for unfractionated heparin is 61.0-112.0 seconds which corresponds to Anti-Xa 0.3-0.7 U/ml. Specimen Blood Performing Organization Address [facility]/Zipcode Phone Number [facility] DEPARTMENT OF PATHOLOGY AND [address] [place] [address] [facility] [address] [place] [address] Prothrombin time with INR (05/11/2018 11:35 AM DRYERMAN/WOMAN) Prothrombin time 14.3 11.5 - 14.5 sec [facility] INR 1.1 [facility] Comment: HOSPITAL The International Normalized Ratio (INR) is a therapeutic monitoring tool for patients who are stable on oral anticoagulant therapy. An INR of 2.0-3.0 is suggested for deep vein thrombosis/pulmonary embolism. Specimen Blood Performing Organization Address City/State/Zipcode Phone Number [facility] DEPARTMENT OF PATHOLOGY AND [address] [place] [phone] [address] CBC with platelet and differential (05/11/2018 11:35 AM DRYERMAN/WOMAN) WBC 6.54 4.50 - 11.00 k/uL [facility] RBC 2.77 (L) 4.20 - 5.50 m/uL [facility] HGB 8.9 (L) 12.0 - 16.0 g/dL [facility] HCT 27.4 (L) 37.0 - 47.0 % [facility] MCV 98.9 82.0 - 100.0 fL [facility] MCH 32.1 27.0 - 34.0 pg [facility] MCHC 32.5 31.0 - 37.0 g/dL [facility] RDW - SD 47.2 37.0 - 55.0 fL [facility] MPV 10.8 8.8 - 13.2 fL [facility] Platelet count 172 150 - 400 k/uL [facility] Nucleated RBC 0.00 /100 WBC [facility] Neutrophils 71.3 (H) 39.0 - 69.0 % [facility] Lymphocytes 18.3 (L) 25.0 - 45.0 % [facility] Monocytes 6.6 0.0 - 10.0 % [facility] Eosinophils 3.2 0.0 - 5.0 % [facility] Basophils 0.3 0.0 - 1.0 % [facility] Immature granulocytes 0.3Comment: "Immature 0.0 - 1.0 % [facility] (promyelocytes, myelocytes, metamyelocytes) Specimen Blood Performing Organization Address City/[facility]/Zipcode Phone Number [facility] DEPARTMENT OF PATHOLOGY AND [address] [place] [address] [address] Serum electrophoresis (05/11/2018 11:35 AM DRYERMAN/WOMAN) Protein 7.0 6.3 - 8.3 g/dL [facility] Comment: HOSPITAL 4.6-7.0 g/dL 1 week 4.4-7.6 g/dL 7 months-1year5.1-7.3 g/dL 1-2 years5.6-7.5 g/dL >3 years6.0-8.0 g/dL 18-150 6.3-8.3 g/dL SPE albumin 4.58 4.00 - 5.30 g/dL [facility] SPE alpha 1 0.18 0.10 - 0.25 g/dL [facility] SPE alpha 2 0.77 0.58 - 0.84 g/dL [facility] SPE beta 0.70 0.50 - 1.10 g/dL [facility] SPE gamma 0.78 0.60 - 1.30 g/dL [facility] SPE extended interpretation See CommentComment: [facility] A normal [facility] protein study. SPE interpretation See CommentComment: [facility] Connie Dillon MD; [facility] Diaz Felix, PhD; Trevor Fraire MD, PhD Specimen Serum Performing Organization Address City/[facility]/Zipcode Phone Number [facility] DEPARTMENT OF PATHOLOGY AND [address] [place] [address] [address] Comprehensive metabolic panel (05/11/2018 11:35 AM DRYERMAN/WOMAN) Sodium 141 135 - 148 mEq/L [facility] Potassium 4.1 3.5 - 5.0 mEq/L [facility] Chloride 103 98 - 112 mEq/L [facility] CO2 21 (L) 24 - 31 mEq/L [facility] Anion gap 17@ANIO (H) 7 - 15 mEq/L [facility] BUN 86 (H) 8 - 23 mg/dL [facility] Creatinine 3.06 (H) 0.50 - 0.90 mg/dL [facility] Glucose 264 (H) 65 - 99 mg/dL [facility] Calcium 10.0 8.8 - 10.2 mg/dL [facility] Protein 7.0 6.3 - 8.3 g/dL [facility] Comment: HOSPITAL 4.6-7.0 g/dL 1 week 4.4-7.6 g/dL 7 months-1year5.1-7.3 g/dL 1-2 years5.6-7.5 g/dL >3 years6.0-8.0 g/dL 18-150 6.3-8.3 g/dL Albumin 3.8 3.5 - 5.0 g/dL [facility] A/G ratio 1.2 0.7 - 3.8 [facility] Alkaline phosphatase 99 35 - 104 U/L [facility] AST 20 10 - 35 U/L [facility] ALT 14 5 - 50 U/L [facility] Total bilirubin 0.4 0.0 - 1.2 mg/dL [facility] Specimen Plasma specimen Performing Organization Address City/[facility] Phone Number [facility] DEPARTMENT OF PATHOLOGY AND [address] [place] [address] Gram stain (05/11/2018 10:42 AM DRYERMAN/WOMAN) Gram stain result No WBC's [facility] Many Gram negative rods Few Gram positive rods Comment: Specimen Information Specimen Source: Urine Specimen Site: Clean catch Specimen Urine Performing Organization Address [facility] Phone Number [facility] DEPARTMENT OF PATHOLOGY AND [address] [place] [address] Urine culture (05/11/2018 10:42 AM DRYERMAN/WOMAN) Urine culture isolate Escherichia coli [facility] >10-5 cfu/ml [facility] The performance characteristics of this assay on this isolate were validated by the Microbiology Laboratory at [facility].This source has not been approved by the U.S. Food and Drug Administration.The results are not intended to be used as the sole means for clinical diagnosis or patient management.The Microbiology Laboratory is authorized under the clinical Laboratory Improvement Amendments of 1988 (CLIA-88) to perform high complexity testing. (A) Comment: Specimen Information Specimen Source: Urine Specimen Site: Clean catch Specimen Urine Organism Antibiotic Method Susceptibility Escherichia coli Ampicillin ELÍAS >16 mcg/mL: Resistant Escherichia coli Amoxicillin/Clavulanate ELÍAS 8/4 mcg/mL: Susceptible Escherichia coli Amikacin ELÍAS <=4 mcg/mL: Susceptible Escherichia coli Aztreonam ELÍAS <=1 mcg/mL: Susceptible Escherichia coli Ceftazidime ELÍAS <=0.5 mcg/mL: Susceptible Escherichia coli Ciprofloxacin ELÍAS 1 mcg/mL: Susceptible Escherichia coli Ceftriaxone ELÍAS <=0.5 mcg/mL: Susceptible Escherichia coli Cefuroxime Sodium ELÍAS <=4 mcg/mL: Susceptible Escherichia coli Cefazolin ELÍAS 2 mcg/mL: Susceptible Escherichia coli Cefepime ELÍAS <=0.5 mcg/mL: Susceptible Escherichia coli Nitrofurantoin ELÍAS <=16 mcg/mL: Susceptible Escherichia coli Cefoxitin ELÍAS <=4 mcg/mL: Susceptible Escherichia coli Gentamicin ELÍAS <=1 mcg/mL: Susceptible Escherichia coli Imipenem ELÍAS <=0.25 mcg/mL: Susceptible Escherichia coli Levofloxacin ELÍAS <=1 mcg/mL: Susceptible Escherichia coli Meropenem ELÍAS <=0.125 mcg/mL: Susceptible Escherichia coli Tobramycin ELÍAS 1 mcg/mL: Susceptible Escherichia coli Ampicillin/Sulbactam ELÍAS 16/8 mcg/mL: Resistant Escherichia coli Trimethoprim/Sulfamethoxazole ELÍAS >2/38 mcg/mL: Resistant Escherichia coli Tetracycline ELÍAS <=1 mcg/mL: Susceptible Escherichia coli Piperacillin/Tazobactam ELÍAS <=2/4 mcg/mL: Susceptible Escherichia coli Ertapenem ELÍAS <=0.125 mcg/mL: Susceptible Escherichia coli Tigecycline ELÍAS <=0.5 mcg/mL: Susceptible Performing Organization Address City/State/Zipcode Phone Number [facility] DEPARTMENT OF PATHOLOGY AND [address] [place] [address] [facility] [address] [address] after 05/28/2017 Insurance Payer Benefit Plan / Group Subscriber ID Type Phone Address MEDICARE MEDICARE PART A AND B xxxxxxxxxxx Medicare [place] COMMERCIAL MISC MISC COMMERCIAL xxxxxxxxxx Commercial ) [place] [address] Navneet [facility] Self 1950 [phone] [address] ([place]) [place] [address] Advance Directives Patient has advance care planning documents on file. For more information, please contact:Rene Rocha[address] [place] [address]
--- OUTSIDE RECORDS SUMMARY | 2018-05-29 19:10 | XMS REPORT | Continuity of Care Document ---
:1950 Author Organization Interface Problems Problem Status Onset Classification Date Comments Source Date Reported N18.3 - "CHRONIC Active [facility] KIDNEY DISEASE, STAGE" 016 [place] ARANESP 60 MCG, Active CPT-31332, D63.1 016 [facility] DENSE BREAST Active 016 [facility] SCREENING Active 016 [facility] SCREENING MAMMO Active 016 [facility] CPT 81467, ANEMIA IN Active CKD D63.1 016 [facility] Anemia Resolved Problem 11/03/2015 [facility] Anemia associated with Active Problem 11/03/2015 chronic renal failure [facility] Chronic kidney disease Resolved Problem 11/03/2015 [facility] Diabetes mellitus type Resolved Problem 11/03/2015 2 [facility] Hypertension Resolved Problem 11/03/2015 [facility] Retinopathy Resolved Problem 11/03/2015 [facility] Shortness of breath Active Diagnosis 04/10/2016 Chan Dorman MD, PA Dyspnea, unspecified Active Diagnosis 04/10/2016 Chan Dorman MD, PA Pure Active Diagnosis 04/10/2016 [facility] hypercholesterolemia MD Dandy, PA Peripheral vascular Active Diagnosis 04/10/2016 Chan disease, unspecified MD Dandy, PA Screening for Active Diagnosis 04/10/2016 Chan cardiovascular Dandy, disorders , PA Bruit Active Problem 04/10/2016 Chan Dorman MD, PA 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, failure , PA Abnormal ECG Active Problem 04/10/2016 Chan Dorman MD, PA ANEMIA IN CHRONIC Active KIDNEY DISEASE [facility] R06.02 Active [facility] SHORTNESS OF BREATH Active [facility] ENCNTR SCREEN Active MAMMOGRAM FOR [facility] MALIGNANT NE INCONCLUSIVE MAMMOGRAM Active [facility] Medications Medication Details Route Status Patient Ordering [...] 12.5 MG Al-Azzeh 10/31/ Chan Orally twice 2015 Tayyan, a day (bid) JUAN GUY Carvedilol as directed Orally Active 6.25 MG Al-Azzeh 05/ Chan Orally twice 2015, a day (bid) JUAN GUY Carvedilol 1 tablet Orally No Longer 3.125 MG Al-Azzeh 10/31/ Chan Active Orally twice 2015 Tayyan, a day (bid) JUAN GUY Aranesp 60 [...] Coreg PO, BID, 0 Active Refill(s) 2015 [facility] Spironolactone 25 mg=2 Active tab, PO, 2015 Daily, # 60 tab, 0 Refill(s) glimepiride PO, Daily, Active 0 Refill(s) 2015 Janumet PO, BID, 0 Active Refill(s) 2015 Aranesp 60 Inactive microgram, 2015 1 mL, Route: SUB-Q, Drug form: INJ, ONCALL, Start date: 08/30/15 13:00:00, Duration: 1 day, Stop date: 08/31/15 12:59:00Not es: (Same as: Aranesp) Non-formula ry Aranesp 60 Inactive microgram, 2015 [facility] Route: SUB-Q, Drug form: INJ, ONCALL, Start date: 08/10/15 13:00:00, Duration: 1 day, Stop date: 08/11/15 12:59:00Not es: (Same as: Aranesp) Non-Formula ry Advair Diskus 1 puff Inhalation Active 250-50 Al-Azzeh Chan MCG/DOSE Dandy, Inhalation JUAN GUY Twice a day Atorvastatin 1 tablet Orally Active 40 MG Orally Al-Azzeh Chan Calcium Once a day MD Dandy PA Omeprazole 1 tablet Orally Active 20 mg Orally Al-Azzeh Chan twice a day Dandy, (bid) JUAN GUY Spironolactone 1 tablet Orally Active 25 MG Orally Al-Azzeh Chan Once a day MD Dandy PA Nasonex 2 sprays in Nasally Active 50 MCG/ACT Al-Azzeh Chan each Nasally Once Dandy, nostril a day JUAN GUY Januvia 1 tablet Orally Active 50 MG Orally Al-Azzeh Chan Once a day MD Dandy PA Glimepiride 1 tablet Orally Active 4 MG Orally Al-Azzeh Chan with Once a day Dandy breakfast MD PA or the first main meal of the day Allergies, Adverse Reactions, Alerts Substance Category Reaction Severity Reaction Status Date Comments Source type Reported penicillin Adverse Info Not Adverse Active Chan Reaction Available Reaction 6 MD Dandy, PA Immunizations Immunization Date Given Site Status Last Updated Comments Source Results Order Name Results Value Reference Date Interpretation Comments Source Range Breast Breast - BREAST COMPLETE EDUIN US 10/03 - Complete Complete Eduin - [facility] Eduin US US ULTRASOUND OF BOTH BREASTS AND BOTH AXILLA: 10/04/2015 CLINICAL: Dense breasts. Read by: Mart Lambert MD Dictated Date/time: 10/04/15 13:42 Electronically Signed by: Mart Lambert MD 10/04/15 13:42 FINAL REPORT Comparison is made to exam dated: 09/07/2015 mammogram - [facility]. Color flow and real-time ultrasound of both [...] density, which can be performed at [facility]. Mart Lambert M.D. jt/:10/04/2015 13:42:31 Binder Fixer: Chicho Dejesus, [facility] This exam was dictated and interpreted by [id number] for [facility] Breast Doyle. letter sent: Normal exam Ultrasound BI-RADS: 2 Benign Digital Digital - DIGITAL MAMMO SCREENING EDUIN GUZMAN 09/06 - Mammo Mammo /2015 - [facility] Screening Screening BILATERAL DIGITAL SCREENING MAMMOGRAM WITH CAD: 2015 Eduin Denny [place] CLINICAL: Routine. Read by: Mart [...] by the referring physician. Mart simental/joyce:09/19/2015 08:31:07 Binder Fixer: Anne Reina, [facility] This exam was dictated and interpreted by [id number] for [facility]. letter sent: Normal [facility] Mammogram BI-RADS: 2 Benign Retroperit Retroperiton PROCEDURE: RENAL ULTRASOUND WITH DOPPLER 08/22 - CLAUDIA ramirez [employer] /2015 - [facility] w w Doppler US Doppler US CLINICAL [...] 2 views 08/09 - views DX views - [facility] CLINICAL HISTORY: Shortness of breath. Read by: [...] Chan Dorman MD, PA Weight 70 10/03/2015 [facility] BMI Calculated 25.68 10/03/2015 [facility] Height 165.1 cm 10/03/2015 [facility] Height 165.1 cm 08/13/2015 [facility] BMI Calculated 25.68 08/13/2015 [facility] Weight 70 08/13/2015 [facility] Encounters Location Location Encounter Encounter Reason Attending ADM DC Status Source Details Type Number For Provider Date Date Visit [facility] [id number] Mohammad 08/09 08/10 Tico Morales /2015 [facility] Outpt Diag [id number] Logan 08/22 08/23 [facility] Calvin /2015 [facility] OP [id number] Ameena 08/29 09/28 [facility] Outpatient [id number] Ameena 09/06 09/07 [facility] [id number] Ameena 10/01 10/31 [facility] Outpatient [id number] Ameena 10/03 10/04 [facility] echo/caroti [id number] 10/15 10/15 Chan Dorman MD, d/arterial [id number] /2015 Dandy PA dopplers [id number] , PA Chan echo/caroti [id number] 10/15 10/15 Chan Dorman MD, d/arterial [id number] /2015 Dandy PA dopplers [id number] , PA Chan echo/caroti [id number] 10/15 10/15 Chan Dorman MD, d/arterial [id number] /2015 JUAN Dorman dopplers [id number] , PA Chan Follow-Up [id number] 10/31 10/31 Chan Dorman MD, [id number] /2015 JUAN Dorman [id number] , PA Chan Follow-Up [id number] 10/31 10/31 Chan Dorman MD, [id number] /2015 JUAN Dorman [id number] JUAN GUY Follow-Up [id number] 02/14 02/14 Chan Dorman MD, [id number] /2015 JUAN Dorman [id number] JUAN GUY Procedures Procedure Code Date Perfomer Comments Source [facility] BSO - Total [id number] 06/29/1997 [facility] abdominal hysterectomy and bilateral salpingo-oophorect [facility] Back care [id number] [facility]
--- OUTSIDE RECORDS SUMMARY | 2018-05-29 19:11 | XMS REPORT ---
:1950 [facility] Address [address] [place] [address] Dr. Pope [address] [place] [address] Care Team Providers Name Role Phone MAR BUSBY Unavailable Unavailable Problems This patient has no known problems. Allergies, Adverse Reactions, Alerts This patient has no known allergies or adverse reactions. Medications This patient has no known medications. Results Test Description Test Time Test Comments Text Results Atomic Results Result Comments POCT-GLUCOSE METER 2018-04-12 14:18:00 Test Item Value Reference Range Comments POC-GLUCOSE METER (REHAN) (test 190 mg/dL 70-110 TESTED AT [facility] [address] [id number]) [facility] [address]
--- OUTSIDE RECORDS SUMMARY | 2018-05-29 19:11 | XMS REPORT ---
:1950 Author Organization [facility] Care Team Providers Name Role Phone Mil [...] Status Dosage Date Date Advair Diskus MEDISPAN 81790-7 250-50 MCG/DOSE Active 1 puff 696-00 Inhalation Twice a day Atorvastatin MEDISPAN 78898-2 40 MG Orally Active 1 tablet Calcium 121-05 Once a day Omeprazole MEDISPAN 01454-2 20 mg Orally Active 1 tablet 915-30 twice a day (bid) Spironolactone MEDISPAN 17563-5 25 MG Orally Active 1 tablet 803-11 Once a day Nasonex MEDISPAN 34598-4 50 MCG/ACT Active 2 sprays in 288-01 Nasally Once a each nostril day Januvia MEDISPAN 49611-3 50 MG Orally Active 1 tablet 112-28 Once a day Carvedilol MEDISPAN 57961-8 12.5 MG Orally October 31, Active as directed 295-01 twice a day 2015 (bid) HydrALAZINE HCl MEDISPAN 16412-3 25 MG Orally Feb 14, Active 1 tablet 554-00 three times a 2015 day (tid) Isosorbide MEDISPAN 58697-3 10 mg Orally Feb 14, Active 1 tablet Dinitrate 771-01 three times a 2015 day (tid) Glimepiride MEDISPAN 18647-0 4 MG Orally Active 1 tablet 256-01 [...]
--- OUTSIDE RECORDS SUMMARY | 2018-05-29 19:11 | XMS REPORT ---
:1950 Author [facility] Care Team Providers Name Role Phone Mil [...] End Status Dosage Date Date Carvedilol MEDISPAN 59332-3 6.25 MG Orally October 31, Active as directed 135-01 twice a day 2015 (bid) Carvedilol MEDISPAN 65185-2 3.125 MG Orally October 31, Inactive 1 tablet 051-01 twice a day 2015 (bid) Advair Diskus MEDISPAN 27160-5 250-50 MCG/DOSE Active 1 puff 696-00 Inhalation Twice a day Nasonex MEDISPAN 43091-8 50 MCG/ACT Active 2 sprays in 288-01 Nasally Once a each day nostril Spironolactone MEDISPAN 63241-2 25 MG Orally Active 1 tablet 803-11 Once a day Amlodipine MEDISPAN 75054-6 2.5 MG Orally SeptemberOctober 31, Inactive 1 tablet Besylate 100-22 Once a day 2015 Januvia MEDISPAN 91495-4 50 MG Orally Active 1 tablet 112-28 Once a day Glimepiride MEDISPAN 46224-2 4 MG Orally Active 1 tablet 256-01 Once a day with breakfast or the first main meal of the day Atorvastatin MEDISPAN 16805-9 40 MG Orally Active 1 tablet Calcium 121-05 Once a day [facility]eprazole [facility] 07966-8 20 mg Orally Active 1 tablet 915-30 [...]
[2018-05-29] MEDS ORDERED: MEPERIDINE HCL 25 MG/0.5 ML ONE (19:50)
[2018-05-29 19:52] LABS: Protime INR 1.11
[2018-05-29 19:53] LABS: Absolute Lymphocytes (CBC) 0.8 K/uL (0.7-4.9); Absolute Monocytes 0.7 K/uL (0.1-1.3); Absolute Neutrophil 9.2 K/uL (1.8-8.0); Basophils % 0.4 % (0-1.3); Eosinophils % 0.2 % (0-4.4); Hematocrit 25.4 % (36.0-45.0); Lymphocytes % 7.6 % (15.3-44.8); MCH 33.7 pg (27.0-35.0); MCV 95.7 fL (80-100); MPV 8.8 fL (7.6-11.3); Monocytes % 6.9 % (3.3-12.3); RBC Red Blood Cell Count 2.65 M/uL (3.86-4.86)
[2018-05-29 20:28] LABS: Albumin 3.6 g/dL (3.4-5.0); Bilirubin Direct 0.2 mg/dL (0-0.2); Bilirubin Total 0.5 mg/dL (0.2-1.0); Potassium 3.7 mmol/L (3.5-5.1); Protein, Total 7.8 g/dL (6.4-8.2)
--- NOTE | 2018-05-29 22:03 | RAD REPORT ---
EXAM DESCRIPTION: CT - Abdomen Pelvis Wo Contrast - 05/29/2018 9:49 pm CLINICAL HISTORY: Abdominal pain. rectal bleeding;Abd pain COMPARISON: Cholangiogram dated 03/08/2018; Abdomen Exam Limited dated 01/16/2018 TECHNIQUE: CT imaging of the abdomen and pelvis was performed without contrast. Solid organ and vasc ular assessment is limited due to lack of IV contrast. All CT scans are performed using dose optimization technique as appropriate and may include automated exposure control or mA/KV adjustment according to patient size. FINDINGS: The lower lung erwin are clear. The liver, spleen, right adrenal gland and kidneys are within normal limits for a limited non-contras t examination.Small nodule is present in the left adrenal gland, likely an adenoma measuring 9 mm. Mi ld pancreatic atrophy is seen. Pancreatic assessment is quite limited due to lack of IV contrast. No bowel obstruction, free air, free fluid or abscess. The appendix is normal. A 6 cm length of the sigmoid colon demonstrates prominent wall thickening and mild pericolonic fat stranding. A few divert icula are present in the region as well. No fluid collection to suggest abscess. Moderate postsurgical changes are present lower lumbar spine. IMPRESSION: Significantly thickened 6 cm length of sigmoid colon with mild pericolonic fat stranding noted. Focal colitis or diverticulitis are the favored diagnoses. However, colonic malignancy is als o a possibility and thus followup colonoscopy would be advised after appropriate therapy. A limited non-contrast examination was performed as detailed.
[2018-05-29] MEDS ORDERED: CIPROFLOXACIN 400mg IV 400 MG/200 ML BAG IV ONE (22:48)
[2018-05-29] MEDS ORDERED: METRONIDAZOLE 500mg IVPB 500 MG/100 ML BAG IV ONE (22:48)
--- NOTE | 2018-05-29 23:02 | EDPHYS ---
Physician Documentation [facility] Name: Tracy Butt Age: 68 yrs Sex: Female : 1950 Arrival Date: 05/29/2018 Time: 19:08 Bed 20 Private MD: Noe Taylor ED Physician Sven Osuna HPI: 05/29 20:09 This 68 yrs old Female presents to ER via Ambulatory with complaints of rn Abdominal Pain, BLOODY MUCUS FROM RECTUM. 20:09 The patient presents with abdominal pain in the lower abdomen. Onset: The rn symptoms/episode began/occurred last night. The symptoms do not radiate. Associated signs and symptoms: Pertinent positives: blood in stools, nausea, Pertinent negatives: dysuria, fever, hematuria. Modifying factors: The symptoms are alleviated by nothing, the symptoms are aggravated by touching the area. Severity of pain: At its worst the pain was mild in the emergency department the pain is unchanged. The patient has not experienced similar symptoms in the past. Reports had colonoscopy/EGD/ERCP/EUS a few months ago, neg except for some pre-cancerous polyps, reports last night began with lower abd pain and mucous with small amount of bright red blood, + nausea, no fever. . Historical: - Allergies: 19:24 CHLORAMPHENICOL; ak1 19:24 PENICILLINS; ak1 - Home Meds: 19:24 atorvastatin 20 mg Oral tab 1 tab once daily [Active]; brimonidine 0.2 % ophthalmic ak1 drop 1 drop every 8 hours [Active]; calcium acetate miscellaneous powd [Active]; Cardura 8 mg Oral tab 1 tab once daily [Active]; carvedilol 25 mg Oral tab 1 tab 2 times per day [Active]; ciprofloxacin tablet 500 mg 1 tab by mouth two times a day [Active]; darbepoetin bella in polysorbate injection [Active]; furosemide 20 mg Oral tab 1 tab 2 times per day [Active]; glimepiride 2 mg Oral tab 1 tab once daily [Active]; hydralazine 100 mg Oral tab 1 tab 2 times per day [Active]; hydrocortisone 2.5 % Topical crea once daily [Active]; Integra F 125-1-40-3 mg Oral cap 1 cap once daily [Active]; Iron CR 65 mg Oral twice a day [Active]; ketorolac 0.4 % ophthalmic drop [Active]; losartan 50 mg Oral tab 1 tab once daily [Active]; pantoprazole 40 mg Oral TbEC 1 tab once daily [Active]; vitamin A 8,000 unit Oral cap 1 cap once daily [Active]; - PMHx: 19:24 Diabetes - NIDDM; Hypertension; kidney disease; ak1 - PSHx: 19:24 Hysterectomy; left knee replacement; back sx diane placed; ak1 - Immunization history:: Adult Immunizations unknown. - Social history:: Smoking status: Patient/guardian denies using tobacco. - Ebola Screening: : No symptoms or risks identified at this time. - Family history:: not pertinent. - Hospitalizations: : No recent hospitalization is reported. ROS: 20:09 Constitutional: Negative for fever, chills, and weight loss, Eyes: Negative for injury, rn pain, redness, and discharge, Neck: Negative for injury, pain, and swelling, Cardiovascular: Negative for chest pain, palpitations, and edema, Respiratory: Negative for shortness of breath, cough, wheezing, and pleuritic chest pain, Abdomen/GI: + abd pain, bloody stool, and nausea MS/Extremity: Negative for injury and deformity, Skin: Negative for injury, rash, and discoloration, Neuro: Negative for headache, weakness, numbness, tingling, and seizure. Exam: 20:09 Constitutional: This is a well developed, well nourished patient who is awake, alert, rn and in no acute distress. Head/Face: Normocephalic, atraumatic. ENT: MMM Abdomen/GI: soft, mild suprapubic and LLQ tenderness, no rebound, no masses Back: No spinal tenderness. No costovertebral tenderness. Full range of motion. Skin: Warm, dry with normal turgor. Normal color with no rashes, no lesions, and no evidence of cellulitis. MS/ Extremity: Pulses equal, no cyanosis. Neurovascular intact. Full, normal range of motion. Equal circumference. Neuro: Awake and alert, GCS 15, oriented to person, place, time, and situation. Cranial nerves II-XII grossly intact. Motor strength 5/5 in all extremities. Sensory grossly intact. Cerebellar exam normal. Normal gait. Vital Signs: 19:21 BP 177 / 69; Pulse 81; Resp 18; Temp 97.9; Pulse Ox 97% on R/A; Weight 68.04 kg (R); ak1 Height 5 ft. 4 in. (162.56 cm) (R); Pain 8/10; 19:45 BP 187 / 74; Pulse 84; Resp 18; Pulse Ox 98% on R/A; lp1 20:30 BP 187 / 60; Pulse 71; Resp 18; Pulse Ox 97% on R/A; lp1 21:30 BP 154 / 58; Pulse 70; Resp 16; Pulse Ox 98% on R/A; lp1 22:30 BP 183 / 69; Pulse 75; Resp 18; Pulse Ox 98% on R/A; lp1 23:30 BP 162 / 65; Pulse 73; Resp 18; Pulse Ox 96% on R/A; lp1 19:21 Body Mass Index 25.75 (68.04 kg, 162.56 cm) ak1 MDM: 19:21 Patient medically screened. rn 23:00 Differential diagnosis: diverticulitis, non-specific abd pain. Data reviewed: vital rn signs, nurses notes, lab test result(s), radiologic studies, CT scan, and as a result, I will discharge patient. Counseling: I had a detailed discussion with the patient and/or guardian regarding: the historical points, exam findings, and any diagnostic results supporting the discharge/admit diagnosis, lab results, radiology results, the need for outpatient follow up, to return to the emergency department if symptoms worsen or persist or if there are any questions or concerns that arise at home. Response to treatment: the patient's symptoms have markedly improved after treatment, and as a result, I will discharge patient. Special discussion: I discussed with the patient/guardian in detail that at this point there is no indication for admission to the hospital. It is understood, however, that if the symptoms persist or worsen the patient needs to return immediately for re-evaluation. 05/29 19:19 Order name: Basic Metabolic Panel rn 05/29 19:19 Order name: CBC with Diff rn 05/29 19:19 Order name: Hepatic Function rn 05/29 19:19 Order name: Lipase rn 05/29 19:19 Order name: PT-INR rn 05/29 19:19 Order name: Ptt, Activated rn 05/29 19:19 Order name: CT Abd/Pelvis - W/Contrast rn 05/29 20:00 Order name: CBC with Automated Diff; Complete Time: 20:49 EDMS 05/29 20:00 Order name: Protime (+INR); Complete Time: 20:49 EDMS 05/29 20:00 Order name: PTT, Activated Partial Thromb; Complete Time: 20:49 EDMS 05/29 20:28 Order name: Basic Metabolic Panel; Complete Time: 20:49 EDMS 05/29 20:28 Order name: Liver (Hepatic) Function; Complete Time: 20:49 EDMS 05/29 20:28 Order name: Lipase; Complete Time: 20:49 EDMS 05/29 22:04 Order name: CT; Complete Time: 22:36 EDMS 05/29 19:19 Order name: IV Saline Lock; Complete Time: 19:56 rn 05/29 19:19 Order name: Labs collected and sent; Complete Time: 19:56 rn Administered Medications: 19:50 Drug: Demerol 25 mg Route: IVP; Site: right antecubital; lp1 20:30 Follow up: Response: Pain is decreased lp1 22:46 Drug: Cipro 400 mg Volume: 200 ml; Route: IVPB; Infused Over: 60 mins; Site: right lp1 antecubital; 23:45 Follow up: IV Status: Completed infusion; IV Intake: 200ml lp1 23:00 Drug: Flagyl 500 mg Volume: 100 ml; Route: IVPB; Rate: 200 ml/hr; Infused Over: 30 lp1 mins; Site: right antecubital; 05/30 00:09 Follow up: IV Status: Completed infusion; IV Intake: 100ml lp1 Disposition: 05/29/18 23:01 Discharged to Home. Impression: Diverticulitis of large intestine without perforation or abscess with bleeding. - Condition is Stable. - Discharge Instructions: Diverticulitis. - Prescriptions for Zofran ODT 4 mg Oral tablet,disintegrating - place 1 tablet by TRANSLINGUAL route every 8 hours As needed; 20 tablet. Flagyl 500 mg Oral Tablet - take 1 tablet by ORAL route every 8 hours for 10 days; 30 tablet. Tylenol- Codeine #3 300-30 mg Oral Tablet - take 1 tablet by ORAL route every 6 hours As needed; 20 tablet. Cipro 500 mg Oral Tablet - take 1 tablet by ORAL route every 12 hours for 10 days; 20 tablet. - Medication Reconciliation Form, Thank You Letter, Antibiotic Education, Prescription Opioid Use form. - Follow up: Noe Taylor MD; When: 2 - 3 days; Reason: Recheck today's complaints, Re-evaluation by your physician. - Problem is new. - Symptoms have improved. Signatures: Dispatcher [employer] EDSven Fortune MD MD rn Pena, Laura, RN RN lp1 Mirian Scherer RN RN ak1 Corrections: (The following items were deleted from the chart) 00:10 12 23:01 05/29/2018 23:01 Discharged to Home. Impression: Diverticulitis of large lp1 intestine without perforation or abscess with bleeding. Condition is Stable. Forms are Medication Reconciliation Form, Thank You Letter, Antibiotic Education, Prescription Opioid Use. Follow up: Noe Taylor; When: 2 - 3 days; Reason: Recheck today's complaints, Re-evaluation by your physician. Problem is new. Symptoms have improved. rn
--- NOTE | 2018-05-29 23:02 | ER ---
Nurse's Notes [facility] Name: Tracy Butt Age: 68 yrs Sex: Female : 1950 Arrival Date: 05/29/2018 Time: 19:08 Bed 20 Private MD: Noe Taylor Diagnosis: Diverticulitis of large intestine without perforation or abscess with bleeding Presentation: 05/29 19:14 Presenting complaint: Patient states: abd cramps lower abd started last night. pt c/o ak1 blood mucous at 0900 this morning. Transition of care: patient was not received from another setting of care. Onset of symptoms was May 29, 2018. Risk Assessment: Do you want to hurt yourself or someone else? Patient reports no desire to harm self or others. Initial Sepsis Screen: Does the patient meet any 2 criteria? No. Patient's initial sepsis screen is negative. Does the patient have a suspected source of infection? No. Patient's initial sepsis screen is negative. Care prior to arrival: None. 19:14 Method Of Arrival: Ambulatory ak1 19:14 Acuity: ANTHONY 3 ak1 Triage Assessment: 19:21 General: Appears in no apparent distress. Behavior is calm, cooperative. Pain: ak1 Complains of pain in suprapubic area, right lower quadrant and left lower quadrant. Historical: - Allergies: 19:24 CHLORAMPHENICOL; ak1 19:24 PENICILLINS; ak1 - Home Meds: 19:24 atorvastatin 20 mg Oral tab 1 tab once daily [Active]; brimonidine 0.2 % ophthalmic ak1 drop 1 drop every 8 hours [Active]; calcium acetate miscellaneous powd [Active]; Cardura 8 mg Oral tab 1 tab once daily [Active]; carvedilol 25 mg Oral tab 1 tab 2 times per day [Active]; ciprofloxacin tablet 500 mg 1 tab by mouth two times a day [Active]; darbepoetin bella in polysorbate injection [Active]; furosemide 20 mg Oral tab 1 tab 2 times per day [Active]; glimepiride 2 mg Oral tab 1 tab once daily [Active]; hydralazine 100 mg Oral tab 1 tab 2 times per day [Active]; hydrocortisone 2.5 % Topical crea once daily [Active]; Integra F 125-1-40-3 mg Oral cap 1 cap once daily [Active]; Iron CR 65 mg Oral twice a day [Active]; ketorolac 0.4 % ophthalmic drop [Active]; losartan 50 mg Oral tab 1 tab once daily [Active]; pantoprazole 40 mg Oral TbEC 1 tab once daily [Active]; vitamin A 8,000 unit Oral cap 1 cap once daily [Active]; - PMHx: 19:24 Diabetes - NIDDM; Hypertension; kidney disease; ak1 - PSHx: 19:24 Hysterectomy; left knee replacement; back sx diane placed; ak1 - Immunization history:: Adult Immunizations unknown. - Social history:: Smoking status: Patient/guardian denies using tobacco. - Ebola Screening: : No symptoms or risks identified at this time. - Family history:: not pertinent. - Hospitalizations: : No recent hospitalization is reported. Screenin:52 Abuse screen: Denies threats or abuse. Denies injuries from another. Nutritional lp1 screening: No deficits noted. Tuberculosis screening: No symptoms or risk factors identified. Fall Risk None identified. Assessment: 19:30 General: Appears in no apparent distress. uncomfortable, Behavior is appropriate for lp1 age. Pain: Complains of pain in right lower quadrant and left lower quadrant Pain currently is 8 out of 10 on a pain scale. Quality of pain is described as crampy, sharp. Neuro: Level of Consciousness is awake, alert, obeys commands, Oriented to person, place, time, situation, Gait is steady. Cardiovascular: Patient's skin is warm and dry. Respiratory: Respiratory effort is even, unlabored, Breath sounds are clear bilaterally. GI: Abdomen is non-distended, Bowel sounds present X 4 quads. Abdomen is tender to palpation in right lower quadrant and left lower quadrant Reports small amount of blood from rectum with mucus. : No signs and/or symptoms were reported regarding the genitourinary system. EENT: No signs and/or symptoms were reported regarding the EENT system. Derm: Skin is pink, warm \T\ dry. Musculoskeletal: Circulation, motion, and sensation intact. 19:53 Reassessment: CT notified of patient completing oral contrast at this time. lp1 21:12 Reassessment: Patient appears in no apparent distress at this time. Patient is alert, lp1 oriented x 3, equal unlabored respirations, skin warm/dry/pink. Patient states feeling better. 22:30 Reassessment: Patient appears in no apparent distress at this time. Patient and/or lp1 family updated on plan of care and expected duration. Pain level reassessed. Patient is alert, oriented x 3, equal unlabored respirations, skin warm/dry/pink. 23:30 Reassessment: Patient appears in no apparent distress at this time. Patient is alert, lp1 oriented x 3, equal unlabored respirations, skin warm/dry/pink. Patient states feeling better. Patient states symptoms have improved. Vital Signs: 19:21 BP 177 / 69; Pulse 81; Resp 18; Temp 97.9; Pulse Ox 97% on R/A; Weight 68.04 kg (R); ak1 Height 5 ft. 4 in. (162.56 cm) (R); Pain 8/10; 19:45 BP 187 / 74; Pulse 84; Resp 18; Pulse Ox 98% on R/A; lp1 20:30 BP 187 / 60; Pulse 71; Resp 18; Pulse Ox 97% on R/A; lp1 21:30 BP 154 / 58; Pulse 70; Resp 16; Pulse Ox 98% on R/A; lp1 22:30 BP 183 / 69; Pulse 75; Resp 18; Pulse Ox 98% on R/A; lp1 23:30 BP 162 / 65; Pulse 73; Resp 18; Pulse Ox 96% on R/A; lp1 19:21 Body Mass Index 25.75 (68.04 kg, 162.56 cm) ak1 ED Course: 19:08 Patient arrived in ED. es 19:10 Sven Osuna MD is Attending Physician. rn 19:11 Noe Taylor MD is Private Physician. es 19:15 Triage completed. ak1 19:21 Arm band placed on Patient placed in an exam room, on a stretcher, Patient notified of ak1 wait time. 19:25 Patient has correct armband on for positive identification. ak1 19:26 Laurence Kaiser, PARVIN is Primary Nurse. lp1 19:35 Inserted saline lock: 20 gauge in right antecubital area, using aseptic technique. lp1 Blood collected. 23:01 Noe Taylor MD is Referral Physician. rn 05/30 00:08 No provider procedures requiring assistance completed. IV discontinued, No lp1 redness/swelling at site. Pressure dressing applied. Administered Medications: 12/01 19:50 Drug: Demerol 25 mg Route: IVP; Site: right antecubital; lp1 20:30 Follow up: Response: Pain is decreased lp1 22:46 Drug: Cipro 400 mg Volume: 200 ml; Route: IVPB; Infused Over: 60 mins; Site: right lp1 antecubital; 23:45 Follow up: IV Status: Completed infusion; IV Intake: 200ml lp1 23:00 Drug: Flagyl 500 mg Volume: 100 ml; Route: IVPB; Rate: 200 ml/hr; Infused Over: 30 lp1 mins; Site: right antecubital; 05/30 00:09 Follow up: IV Status: Completed infusion; IV Intake: 100ml lp1 Intake: 05/29 23:45 IV: 200ml; Total: 200ml. lp1 05/30 00:09 IV: 100ml; Total: 300ml. lp1 Outcome: 05/29 23:01 Discharge ordered by . rn 05/30 00:09 Discharged to home ambulatory, with family. lp1 Condition: good Discharge instructions given to patient, Instructed on discharge instructions, follow up and referral plans. medication usage, Demonstrated understanding of instructions, follow-up care, medications, Prescriptions given X 4. 00:10 Patient left the ED. lp1 Signatures: Nadira Hidalgo Roman, MD MD rn Pena, Laura RN RN lp1 Mirian Scherer RN RN ak1 Corrections: (The following items were deleted from the chart) 05/29 19:53 19:51 General: Appears in no apparent distress. uncomfortable, Behavior is appropriate lp1 for age, lp1 19:53 19:51 Pain: Complains of pain in right lower quadrant and left lower quadrant Pain lp1 currently is 8 out of 10 on a pain scale. Quality of pain is described as crampy, sharp, lp1 19:53 19:51 Neuro: Level of Consciousness is awake, alert, obeys commands, Oriented to lp1 person, place, time, situation, Gait is steady, lp1 19:53 19:51 Cardiovascular: Patient's skin is warm and dry. lp1 lp1 19:53 19:51 Respiratory: Respiratory effort is even, unlabored, Breath sounds are clear lp1 bilaterally. lp1 19:53 19:51 GI: Abdomen is non-distended, Bowel sounds present X 4 quads. Abdomen is tender lp1 to palpation in right lower quadrant and left lower quadrant Reports small amount of blood from rectum with mucus lp1 19:51 : No signs and/or symptoms were reported regarding the genitourinary system. lp1lp1 : 19:51 EENT: No signs and/or symptoms were reported regarding the EENT system. lp1 lp1 19:51 Derm: Skin is pink, warm \T\ dry. lp1 lp1 :53 19:51 Musculoskeletal: Circulation, motion, and sensation intact. lp1 lp1
== END 2018-05-30 00:10 | disposition home or self-care (01) ==
LOC: ER 19:07
DX: K57.32 Diverticulitis of large intestine without perforation or abscess without bleeding (principal); I10 Essential (primary) hypertension; E11.9 Type 2 diabetes mellitus without complications; N28.9 Disorder of kidney and ureter, unspecified; Z88.0 Allergy status to penicillin; Z88.8 Allergy status to other drugs, medicaments and biological substances
CPT/HCPCS: 36415; 74176; 80048; 80076; 83690; 85025; 85610; 85730; 96365; 96368; 96375; 99284; J0744; J2175

== ENCOUNTER 2019-01-13 14:26 | Emergency (ER) | payer OTHER ==
--- OUTSIDE RECORDS SUMMARY | 2019-01-13 14:36 | XMS REPORT | Clinical Summary ---
:1950 Author Organization [facility] Address [address] [place] [address] Care Team Providers Name Role Phone Asked, [...] 0 Active mg tablet daily. Active Problems Problem Noted Date CKD stage 4 due to type 2 diabetes mellitus 12/16/2018 Elevated antibody levels 12/16/2018 Hypertension 08/11/2018 DM2 (diabetes mellitus, type 2) 08/11/2018 Resolved Problems Problem Noted Date Resolved Date CKD (chronic kidney disease) stage 3, GFR 30-59 ml/min 08/11/2018 12/16/2018 Encounters Date Type Specialty Care Team Description 12/23/2018 Telephone Transplant Kaci Jean MA Notify Coordinator 12/23/2018 Documentation Transplant Emilee Nichols RN 12/16/2018 Office Visit Transplant Jessie Aguirre Essential hypertension ( Primary Dx); MD Maday Type 2 diabetes mellitus with ketoacidosis without coma, with long-term current use of insulin ([facility]); CKD (chronic kidney disease) stage 3, GFR 30-59 ml/min ([facility]); CKD stage 4 due to type 2 diabetes mellitus ([facility]); Elevated antibody levels 11/24/2018 Orders Only Transplant Emilee Nichols, 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) ([facility]) (Primary Dx) 11/16/2018 Telephone Transplant Emilee Nichols, Return Call RN 09/06/2018 Hospital Encounter Transplant Jessie Aguirre ESRD (end stage MD Maday renal disease) ([facility]) 09/06/2018 Orders Only Transplant Augustine Pak RN ESRD (end stage renal disease) ([facility]) (Primary Dx) 08/30/2018 Documentation Transplant Estela Short, Documentation FINISH CLEANER 08/11/2018 Hospital Encounter Transplant Jessie Aguirre MD 07/13/2018 Telephone Transplant Mckenzie Whitney mychart RN 07/06/2018 Hospital Encounter Transplant Jessie Aguirre ESRD (end stage MD Maday renal disease) ([facility]) 07/02/2018 Documentation Transplant Park Steward 06/25/2018 Orders Only Transplant August, ESRD (end stage PARVIN Lim renal disease) ([facility]) (Primary Dx) 06/18/2018 Telephone Transplant Kaci Jean MA Returning Call 06/18/2018 Documentation Transplant ELVIS Koch RN 06/14/2018 Documentation Transplant ELVIS Koch presentation PARVIN Lim 05/27/2018 Hospital Encounter Procedural Davey Ignacio ESRD (end stage Cardiology MD Balaji renal disease) ([facility]) 05/27/2018 Hospital Encounter Radiology Davey Ignacio ESRD (end stage MD Balaji renal disease) ([facility]) 05/27/2018 Hospital Encounter Radiology Davey Ignacio ESRD (end stage MD Balaji renal disease) ([facility]) 05/27/2018 Hospital Encounter Radiology Davey Ignacio ESRD (end stage MD Balaji renal disease) ([facility]) 05/27/2018 Hospital Encounter Pulmonology Davey Ignacio ESRD (end stage MD Balaji renal disease) ([facility]) 05/27/2018 Hospital Encounter Transplant Davey Ignacio ESRD (end stage MD Balaji renal disease) ([facility]) 05/27/2018 Hospital Encounter Transplant Ivan Laureano MD 05/27/2018 Hospital Encounter Transplant Ivan Laureano MD 05/27/2018 Hospital Encounter Transplant Ivan Laureano MD Guerrero, Alex 05/27/2018 Hospital Encounter Transplant Davey Ignacio ESRD (end stage MD Balaji renal disease) ([facility]) 05/26/2018 Lab Lab Davey Ignacio MD 05/25/2018 Lab Lab Davey Ignacio MD 05/17/2018 Documentation Transplant Yeimi, Consent Forms ( Yolanda Scanned Consent For Kidney Transplant Evaluation, Pre Txp Education & MARLEE forms in Media. 05-11-2018) 05/11/2018 Hospital Encounter Transplant Carla Jessie ESRD (end stage MD Maday renal disease) ([facility]) 05/11/2018 Hospital Encounter Transplant Ivan Laureano ESRD (end stage MD Uli renal disease) ([facility]) (Primary Dx) 05/11/2018 Hospital Encounter Transplant Asked, No Pcp Ivan Laureano MD 05/11/2018 Hospital Encounter Transplant Asked, No Pcp 05/03/2018 Documentation Transplant BinAlvaro swensonise 04/21/2018 Telephone Transplant Vandana Adam MA preemptive kidney referral- kidney txp referral after 01/12/2018 Social History Tobacco Use Types Packs/Day Years Used Date Never Smoker Smokeless Tobacco: Never Used Sex Assigned at Date Recorded Not on file Job Start Date Occupation Industry Not on file Not on file Not on file Travel History Travel Start Travel End No recent travel history available. Last Filed Vital Signs Vital Sign Reading Time Taken Blood Pressure 175/95 12/16/2018 9:07 AM CDT Pulse 62 12/16/2018 9:05 AM CDT Temperature 36.2 C (97.2 F) 12/16/2018 9:05 AM CDT Respiratory Rate 17 12/16/2018 9:05 AM CDT Oxygen Saturation 98% 12/16/2018 9:05 AM CDT Inhaled Oxygen Concentration - - Weight 67.8 kg (149 lb 8 oz) 12/16/2018 9:05 AM CDT Height 162.6 cm (5' 4") 12/16/2018 9:05 AM CDT Body Mass Index 25.66 12/16/2018 9:05 AM CDT Plan of Treatment Health Maintenance Due Date Last Done Comments DIABETIC RETINAL EYE EXAM 1950 DIABETIC FOOT EXAM 1959 BREAST CANCER SCREENING 1999 COLONOSCOPY SCREENING 1999 SHINGLES VACCINES (#1) 1999 65+ PNEUMOCOCCAL VACCINE (1 of 2 - PCV13) 2014 INFLUENZA VACCINE 01/27/2019 09/02/2018 Procedures Procedure Name Priority Date/Time Associated Comments Diagnosis C1Q CLASS 1 & 2 ANTIBODY Routine 12/16/2018 11:45 Results for this AM CDT procedure are in the results section. SAB CLASS 1 & 2 WITH Routine 12/16/2018 11:45 Results for this DILUTIONS AM CDT procedure are in the results section. C1Q CLASS 1 & 2 ANTIBODY Routine 09/06/2018 10:36 Results for this AM CDT procedure are in the results section. SAB CLASS 1 & 2 WITH Routine 09/06/2018 10:36 Results for this DILUTIONS AM CDT procedure are in the results section. ANTIBODY TITER Routine 09/06/2018 10:36 Results for this AM CDT procedure are in the results section. ANTIBODY TITER Routine 09/06/2018 10:36 Results for this AM CDT procedure are in the results section. HLA ALLOGENEIC Routine 07/06/2018 6:40 Results for this CROSSMATCH AM PET CARETAKER procedure are in the results section. C1Q CLASS 1 & 2 ANTIBODY Routine 07/06/2018 6:40 Results for this AM PET CARETAKER procedure are in the results section. SINGLE ANTIGEN BEADS Routine 07/06/2018 6:40 Results for this AM PET CARETAKER procedure are in the results section. ECHOCARDIOGRAM 2D Routine 05/27/2018 3:28 ESRD (end stage Results for this COMPLETE W MMODE PM PET CARETAKER renal disease) procedure are in SPECTRAL COLOR DOPPLER (HCC) the results ([id number]) section. US RENAL Routine 05/27/2018 3:10 ESRD (end stage Results for this PM PET CARETAKER renal disease) procedure are in ([facility]) the results section. XR CHEST 2 VW Routine 05/27/2018 2:14 ESRD (end stage Results for this PM PET CARETAKER renal disease) procedure are in ([facility]) the results section. CT ABDOMEN PELVIS WO Routine 05/27/2018 1:09 ESRD (end stage Results for this CONTRAST PM PET CARETAKER renal disease) procedure are in ([facility]) the results section. SIX MINUTE WALK W/ PULSE Routine 05/27/2018 9:10 ESRD (end stage Results for this OXIMETRY AM PET CARETAKER renal disease) procedure are in ([facility]) the results section. ECG 12-LEAD Routine 05/27/2018 8:50 ESRD (end stage Results for this AM PET CARETAKER renal disease) procedure are in ([facility]) the results section. HLA AUTOLOGOUS Routine 05/27/2018 7:57 Results for this CROSSMATCH AM PET CARETAKER procedure are in the results section. C1Q CLASS 1 & 2 ANTIBODY Routine 05/27/2018 7:57 Results for this AM PET CARETAKER procedure are in the results section. SINGLE ANTIGEN BEADS Routine 05/27/2018 7:57 Results for this AM PET CARETAKER procedure are in the results section. LOW RESOLUTION FULL Routine 05/27/2018 7:57 Results for this TYPING BY SSO AM PET CARETAKER procedure are in the results section. ESTIMATED GFR Routine 05/27/2018 7:57 Results for this AM PET CARETAKER procedure are in the results section. ABORH - TRANSPLANT Routine 05/27/2018 7:57 ESRD (end stage Results for this AM PET CARETAKER renal disease) procedure are in ([facility]) the results section. PARATHYROID HORMONE Routine 05/27/2018 7:57 ESRD (end stage Results for this AM PET CARETAKER renal disease) procedure are in ([facility]) the results section. HSV TYPE 1/2 COMBINED Routine 05/27/2018 7:57 ESRD (end stage Results for this AB, IGM AM PET CARETAKER renal disease) procedure are in ([facility]) the results section. HSV 1 & 2 GLYCOPROTEIN G Routine 05/27/2018 7:57 ESRD (end stage Results for this AB, IGG AM PET CARETAKER renal disease) procedure are in ([facility]) the results section. HERPES SIMPLEX VIRUS BY Routine 05/27/2018 7:57 ESRD (end stage Results for this PCR AM PET CARETAKER renal disease) procedure are in ([facility]) the results section. SHERLY-HUGO VIRUS Routine 05/27/2018 7:57 ESRD (end stage Results for this ANTIBODY TEST AM PET CARETAKER renal disease) procedure are in ([facility]) the results section. CYTOMEGALOVIRUS AB, IGM Routine 05/27/2018 7:57 ESRD (end stage Results for this AM PET CARETAKER renal disease) procedure are in ([facility]) the results section. CYTOMEGALOVIRUS AB, IGG Routine 05/27/2018 7:57 ESRD (end stage Results for this AM PET CARETAKER renal disease) procedure are in ([facility]) the results section. HEMOGLOBIN A1C Routine 05/27/2018 7:57 ESRD (end stage Results for this AM PET CARETAKER renal disease) procedure are in ([facility]) the results section. LDH Routine 05/27/2018 7:57 ESRD (end stage Results for this AM PET CARETAKER renal disease) procedure are in ([facility]) the results section. PHOSPHORUS LEVEL Routine 05/27/2018 7:57 ESRD (end stage Results for this AM PET CARETAKER renal disease) procedure are in ([facility]) the results section. CREATININE LEVEL Routine 05/27/2018 7:57 ESRD (end stage Results for this AM PET CARETAKER renal disease) procedure are in ([facility]) the results section. FASTING GLUCOSE LEVEL Routine 05/27/2018 7:57 ESRD (end stage Results for this AM PET CARETAKER renal disease) procedure are in ([facility]) the results section. TRIGLYCERIDES Routine 05/27/2018 7:57 ESRD (end stage Results for this AM PET CARETAKER renal disease) procedure are in ([facility]) the results section. CHOLESTEROL Routine 05/27/2018 7:57 ESRD (end stage Results for this AM PET CARETAKER renal disease) procedure are in ([facility]) the results section. OCCULT BLOOD, STOOL Routine 05/26/2018 8:00 Results for this AM PET CARETAKER procedure are in the results section. OCCULT BLOOD, STOOL Routine 05/25/2018 12:00 Results for this PM PET CARETAKER procedure are in the results section. OCCULT BLOOD, STOOL Routine 05/25/2018 8:00 Results for this AM PET CARETAKER procedure are in the results section. HEPATITIS A ANTIBODY IGM Routine 05/11/2018 11:35 Results for this AM PET CARETAKER procedure are in the results section. ESTIMATED GFR Routine 05/11/2018 11:35 Results for this AM PET CARETAKER procedure are in the results section. SERUM ELECTROPHORESIS Routine 05/11/2018 11:35 ESRD (end stage Results for this AM PET CARETAKER renal disease) procedure are in ([facility]) the results section. C-PEPTIDE Routine 05/11/2018 11:35 ESRD (end stage Results for this AM PET CARETAKER renal disease) procedure are in (HCC) the results section. TB T-SPOT Routine 05/11/2018 11:35 ESRD (end stage Results for this AM PET CARETAKER renal disease) procedure are in (HCC) the results section. NICOTINE AND Routine 05/11/2018 11:35 ESRD (end stage Results for this METABOLITES, SERUM AM PET CARETAKER renal disease) procedure are in (HCC) the results section. URINE DRUGS OF ABUSE Routine 05/11/2018 11:35 ESRD (end stage Results for this SCREEN AM PET CARETAKER renal disease) procedure are in (HCC) the results section. ABORH - TRANSPLANT Routine 05/11/2018 11:35 ESRD (end stage Results for this AM PET CARETAKER renal disease) procedure are in (HCC) the results section. PARTIAL THROMBOPLASTIN Routine 05/11/2018 11:35 ESRD (end stage Results for this TIME (PTT) AM PET CARETAKER renal disease) procedure are in ([facility]) the results section. PROTHROMBIN TIME WITH Routine 05/11/2018 11:35 ESRD (end stage Results for this INR AM PET CARETAKER renal disease) procedure are in ([facility]) the results section. HC COMPLETE BLD COUNT Routine 05/11/2018 11:35 ESRD (end stage Results for this W/AUTO DIFF AM PET CARETAKER renal disease) procedure are in (HCC) the results section. SYPHILIS TREPONEMAL IGG Routine 05/11/2018 11:35 ESRD (end stage Results for this AM PET CARETAKER renal disease) procedure are in ([facility]) the results section. HEPATITIS C ANTIBODY Routine 05/11/2018 11:35 ESRD (end stage Results for this AM PET CARETAKER renal disease) procedure are in ([facility]) the results section. HEPATITIS B SURFACE AB, Routine 05/11/2018 11:35 ESRD (end stage Results for this QUANTITATIVE AM PET CARETAKER renal disease) procedure are in ([facility]) the results section. HEPATITIS B SURFACE Routine 05/11/2018 11:35 ESRD (end stage Results for this ANTIGEN AM PET CARETAKER renal disease) procedure are in ([facility]) the results section. HEPATITIS B SURFACE Routine 05/11/2018 11:35 ESRD (end stage Results for this ANTIBODY AM PET CARETAKER renal disease) procedure are in ([facility]) the results section. HEPATITIS B CORE Routine 05/11/2018 11:35 ESRD (end stage Results for this ANTIBODY TOTAL AM PET CARETAKER renal disease) procedure are in ([facility]) the results section. HEPATITIS A ANTIBODY Routine 05/11/2018 11:35 ESRD (end stage Results for this TOTAL AM PET CARETAKER renal disease) procedure are in ([facility]) the results section. HIV AG/AB COMBINATION Routine 05/11/2018 11:35 ESRD (end stage Results for this AM PET CARETAKER renal disease) procedure are in ([facility]) the results section. URINALYSIS SCREEN AND Routine 05/11/2018 11:35 ESRD (end stage Results for this MICROSCOPY, WITH REFLEX AM PET CARETAKER renal disease) procedure are in TO CULTURE ([facility]) the results section. COMPREHENSIVE METABOLIC Routine 05/11/2018 11:35 ESRD (end stage Results for this PANEL AM PET CARETAKER renal disease) procedure are in ([facility]) the results section. GRAM STAIN Routine 05/11/2018 10:42 Results for this AM PET CARETAKER procedure are in the results section. URINE CULTURE Routine 05/11/2018 10:42 Results for this AM PET CARETAKER procedure are in the results section. after 01/12/2018 Results SAB class 1 & 2 with dilutions (12/16/2018 11:45 AM CDT)Only the most recent of2 resultswithin the time period is included. Interpretation ADDITIONAL ANTIBODY INFORMATION [facility] B27=B*27:05 [facility] A68=A*68:02 DR9=DRB1*09:02 1:8 B27=B*27:05 1:32 B27=B*27:05 [facility] SAB class 1 & 2 with See link below for TERRIL dilutions PDF Lab Report [facility] Specimen Blood Performing Organization Address City/[facility] Centercode Phone Number [facility] DEPARTMENT OF PATHOLOGY AND [address] [place] [address] [address] [facility] C1Q class 1 & 2 antibody (12/16/2018 11:45 AM CDT)Only the most recent of4 resultswithin the time period is included. [facility] C1Q class 1 & [address] link [address] [facility] antibody for PDF Lab HOSPITAL Report Specimen Blood Performing Organization Address City/[facility]/Zipcode Phone Number [facility] DEPARTMENT OF PATHOLOGY AND [address] [place] [id number] [facility] Antibody titer (09/06/2018 10:36 AM CDT)Only the most recent of2 resultswithin the time period is included. Antibody titer [address] [facility] Comment: HOSPITAL Anti-A (DTT); ctrl 256. IgG Anti-A; performed by gel method Specimen Performing Organization Address City/[facility] Centercode Phone Number [facility] DEPARTMENT OF PATHOLOGY AND [address] [place] [address] [place] [address] Single antigen beads (07/06/2018 6:40 AM PET CARETAKER)Only the most recent of2 resultswithin the time period is included. [facility] DEPARTMENT OF PATHOLOGY AND GENOMIC MEDICINE Single antigen See link below [facility] DEPARTMENT OF beads for PDF Lab PATHOLOGY AND Report GENOMIC MEDICINE Specimen Performing Organization Address [facility] Centercosc Phone Number [facility] DEPARTMENT OF PATHOLOGY AND [address] [place] [address] HLA allogeneic crossmatch (07/06/2018 6:40 AM PET CARETAKER) [facility] DEPARTMENT OF PATHOLOGY AND GENOMIC MEDICINE HLA crossmatch See link below [facility] DEPARTMENT OF for PDF Lab PATHOLOGY AND GENOMIC Report MEDICINE Specimen Performing Organization Address [facility] Phone Number [facility] DEPARTMENT OF PATHOLOGY AND [address] [place] [address] MEDICINE Echocardiogram complete w contrast and 3D if needed (05/27/2018 3:28 PM PET CARETAKER) Specimen Narrative Performed At [facility] Echocardiography Report [address] [place] [address] Pat.Name:NAVNEET VILLAGRAN Pat.ID:[id number] St.Date: 05/27/2018Refer.MD:DAVEY IGNACIO MD Exam Time: 2:39:00 PMStudy Type:Routine Echo Height:64inWeight: 150lb BSA: 1.73 m2 DOBAge:[age]Y Sex: FEMALEBP: 177/74 HR:71 bpm Sonogrphr: PAIGE Buitrago/ Jose Jimenez (Student) Pat. Stat.:OutpatientStudy Status:Final Echo Event ID:[id number] Order ID:[id number] Reason for Study:Renal Transplant Evaluation Dx,ESRD (end stage renal disease) ([facility]) [N18.6 (ICD-10-CM)] Procedures:2D Echo, Colorflow Doppler, Strain [...] abnormalities noted. A trace of tricuspid regurgitation Sevrin: Diastolic dysfunction Grade II (Moderate): Impaired relaxationwith elevated LV filling pressures. Other:Insufficient TR jet to estimate PA systolic pressure. MEASUREMENTS: 2D Parasternal Long [place] LVOT 1.9 cmLA Ds 3.7 cm LVIDd4.7 [...] Radiology Results In - 05/28/2018 8:07 AM [facility] Echocardiography Report [address] [place] [address] Pat.Name: NAVNEET VILLAGRAN Pat.ID: [id number] .Date: 05/27/2018 Refer.MD: DAVEY IGNACIO MD Exam Time: 2:39:00 PM Study Type:Routine Echo Height: 64in Weight: 150lb BSA: 1.73 m2 Age: 11 1950,68Y Sex: FEMALE BP: 177/74 HR: 71 bpm Sonogrphr: PAIGE Buitrago/ Jose Jimenez (Student) Pat. Stat.:Outpatient Study Status:Final Echo Event ID:[id number] Order ID: [id number] Reason for Study:Renal Transplant Evaluation Dx,ESRD (end [...] PA systolic pressure. MEASUREMENTS: 2D Parasternal Long [place] LVOT 1.9 cm LA Ds 3.7 cm [...] Organization Address City/State/Zipcode Phone Number [facility] [address] [place] [address] [place] Renal (05/27/2018 3:10 PM PET CARETAKER) Specimen Narrative Performed At EXAMINATION:US RENAL [facility] CLINICAL HISTORY:N18.6 End stage renal [...] Mild renal cortical atrophy; otherwise unremarkable examination. [id number] Procedure Note Interface, Radiology Results Incoming - 05/27/2018 5:15 PM PET CARETAKER EXAMINATION: US RENAL CLINICAL HISTORY: N18.6 End [...] Mild renal cortical atrophy; otherwise unremarkable examination. [id number] Performing Organization Address [facility] Centercosc Phone Number [facility] [address] [place] [address] XR Chest 2 Vw (05/27/2018 2:14 PM PET CARETAKER) Specimen Narrative Performed At XR CHEST 2 VW [facility] CLINICAL INDICATION:N18.6 End stage renal disease, Renal Transplant Evaluation COMPARISON:None available IMPRESSION: The lungs are clear without acute cardiopulmonary disease. Heart and mediastinal contours are within normal limits. Bones are unremarkable. Thank you for allowing us to participate in the care of your patient. [facility]-[id number] Procedure Note Hm Interface, Radiology Results Incoming - 05/27/2018 2:21 PM PET CARETAKER XR CHEST 2 VW CLINICAL INDICATION: N18.6 End stage renal disease, Renal Transplant Evaluation COMPARISON: None available IMPRESSION: The lungs are clear without acute cardiopulmonary disease. Heart and mediastinal contours are within normal limits. Bones are unremarkable. Thank you for allowing us to participate in the care of your patient. [facility]-[id number] Performing Organization Address [facility]ercosc Phone Number [facility] [address] [place] [address] CT Abdomen Pelvis Wo Contrast (05/27/2018 1:09 PM PET CARETAKER) Specimen Narrative Performed At EXAMINATION:[facility] ABDOMEN [facility]ELVIS [facility] CLINICAL HISTORY:N18.6 End stage renal disease, kidney [...] IMPRESSION: Minimal perinephric fluid on the left. [facility]-[id number] Procedure Note Hm Interface, Radiology Results Incoming - 05/27/2018 1:22 PM PET CARETAKER EXAMINATION: CT ABDOMEN PELVIS WO CONTRAST CLINICAL [...] IMPRESSION: Minimal perinephric fluid on the left. [facility]-[id number] Performing Organization Address City/State/Zipcode Phone Number [facility] [address] [place] [address] Six minute walk w/ pulse oximetry (05/27/2018 9:10 AM PET CARETAKER) Heart Rate at Rest 78.00 1/min [facility] SPO2 at Rest 98.00 % [facility] Supplemental O2 at Rest 0.00 L/min [facility] Heart Rate after 1 minute 76.00 1/min [facility] SPO2 after 1 minute 97.00 % [facility] Supplemental O2 after 1 minute 0.00 L/min [facility] Heart Rate after 2 minutes 80.00 1/min [facility] SPO2 after 2 minutes 97.00 % [...] 8.00 HM [facility] Six Minute Walk Distance 450 HM [facility] Predicted Specimen Narrative Performed At Performing Organization Address City/[facility] Centercode Phone Number [facility] [address] [place] [address] ECG 12 lead (05/27/2018 8:50 AM PET CARETAKER) Ventricular rate 75 HM MUSE Atrial rate 75 HM MUSE AR interval 156 [facility] MUSE QRSD interval 100 HM MUSE QT interval 406 HM MUSE QTC interval 453 HM MUSE P axis 1 75 HM MUSE QRS axis 1 65 HM MUSE T wave axis 53 [facility] MUSE EKG impression Normal sinus [facility] MUSE rhythm-Normal ECG-No previous ECGs available-Electronicall y Signed By Dona GUY, Toi Roman ([id number]) on 05/27/2018 5:52:07 PM Specimen Narrative Performed At Performing Organization Address City/State/[facility] Centercode Phone Number [facility] [employer] [address] [place] [address] Low resolution full typing by O (05/27/2018 7:57 AM PET CARETAKER) [facility] DEPARTMENT OF PATHOLOGY AND GENOMIC MEDICINE Low resolution full See link below [facility] DEPARTMENT OF typing by O for PDF Lab PATHOLOGY AND Report GENOMIC MEDICINE Specimen Performing Organization Address City/State/[facility] Centercode Phone Number [facility] DEPARTMENT OF PATHOLOGY AND [address] [place] [address] Estimated GFR (05/27/2018 7:57 AM PET CARETAKER)Only the most recent of2 resultswithin the time period is included. [facility] Estimated GFR 12 (A) mL/min/1.[address] [facility] Comment: HOSPITAL CatergoryUnitsInterpretation G1 >=90 Normal or high G2 60-89Mildly decreased J1e95-80Ndkowx to moderately decreased O5n46-10Nhfwpyfctd to severely decreased G4 15-29Severely decreased G5 <15Kidney failure The eGFR was calculated using the Chronic Kidney Disease Epidemiology Collaboration (CKD-EPI) equation. Interpretation is based on recommendations of the National Kidney Foundation-Kidney Disease Outcomes Quality Initiative (NKF-KDOQI) published in 2014. Specimen Plasma specimen Performing Organization Address [facility] Phone Number [facility] DEPARTMENT OF PATHOLOGY AND [address] [place] [address] HSV 1 & 2 glycoprotein G Ab, IgG (05/27/2018 7:57 AM PET CARETAKER) [facility] HSV 1 glycoprotein G Positive (A) Negative [facility] [place] Ab, IgG Comment: HOSPITAL Positive results may indicate current or past HSV infection. For acute illness, viral PCR and IgM testing are recommended. Individuals infected with HSV may not exhibit detectable antibodies in cases of early infection. HSV 2 glycoprotein G NegativeComment: Negative [facility]IL [place] Ab, IgG Negative: No IgG HOSPITAL antibodies to HSV2 detected. Specimen Serum Performing Organization Address [facility] Phone Number [facility] DEPARTMENT OF PATHOLOGY AND [address] [place] [address] Sherly-Hugo virus antibody test (05/27/2018 7:57 AM PET CARETAKER) [facility] EBV Ab to viral capsid Positive (A) Negative [facility] [place] Ag, IgG HOSPITAL EBV Ab to viral capsid Negative Negative [facility] [place] Ag, IgM HOSPITAL EBV Ab to nuclear Ag, Positive (A) Negative [facility] [place] IgG HOSPITAL EBV Ab to early (D) Positive (A) Negative [facility] [place] Ag, IgG HOSPITAL Sherly-Hugo virus SEE COMMENT PARKER [place] antibody Comment: HOSPITAL interpretation Infection Status: Results may suggest EBV reactivation, although a recent primary EBV infection is not excluded. Specimen Serum Performing Organization Address City/State/Zipcode Phone Number [facility] DEPARTMENT OF PATHOLOGY AND [address] [place] [phone] [facility] MEDICINE [address] [address] HSV type 1/2 combined Ab, IgM (05/27/2018 7:57 AM PET CARETAKER) [facility] HSV 1/2 combined 1.08 (H) <=0.89 IV AR REF LAB Ab, IgM Comment: INTERPRETIVE INFORMATION: Herpes Simplex Virus Type [...] than 12 months post- infection. Performed by [facility], [address] [place] [address] www.I Do Now I Don't, Soto Jasmine MD - Lab. Director Specimen Serum Performing Organization Address [facility] Phone Number [facility] [address] [place] [address] [facility] REF LAB [address] [place] [address] HLA autologous crossmatch, ELOINA (05/27/2018 7:57 AM PET CARETAKER) [facility] DEPARTMENT OF PATHOLOGY AND GENOMIC MEDICINE HLA autologous See link below [facility] DEPARTMENT OF crossmatch for PDF Lab PATHOLOGY AND Report GENOMIC MEDICINE Specimen Performing Organization Address City/State/Zipcode Phone Number [facility] DEPARTMENT OF PATHOLOGY AND [address] [place] [phone] [facility] Herpes simplex virus by PCR (05/27/2018 7:57 AM PET CARETAKER) [facility] Herpes virus, PCR Not-Detected Not-Detected [facility] Herpes virus, PCR See link below [facility] for PDF Lab HOSPITAL ReportComment: Specimen Performing Organization Address City/State/Zipcode Phone Number [facility] DEPARTMENT OF PATHOLOGY AND [address] [place] [phone] [place] [address] Cytomegalovirus Ab, IgM (05/27/2018 7:57 AM PET CARETAKER) Cytomegalovirus Ab, IgM Negative Negative [facility] Specimen Serum Performing Organization Address City/[facility] Phone Number [facility] DEPARTMENT OF PATHOLOGY AND [address] [place] [phone] ABORh - transplant (05/27/2018 7:57 AM PET CARETAKER)Only the most recent of2 resultswithin the time period is included. ABO grouping O [facility] Rh type POS [facility] Specimen Blood Performing Organization Address [facility] Phone Number [facility] DEPARTMENT OF PATHOLOGY AND [address] [place] [phone] Cytomegalovirus Ab, IgG (05/27/2018 7:57 AM PET CARETAKER) Pathologist [facility] [place] Cytomegalovirus Ab, IgG NegativeComment: Negative TERRIL Negative; No CMV [facility] IgG antibodies HOSPITAL were detected. Specimen Serum Performing Organization Address [facility] Phone Number [facility] DEPARTMENT OF PATHOLOGY AND [address] [place] [phone] Triglycerides (05/27/2018 7:57 AM PET CARETAKER) [facility] Triglycerides 95 <150 mg/dL [facility] Specimen Plasma specimen Performing Organization Address City/[facility]/Zipcode Phone Number [facility] DEPARTMENT OF PATHOLOGY AND [address] [place] [phone] [place] [phone] Phosphorus level (05/27/2018 7:57 AM PET CARETAKER) Phosphorus 4.8 (H) 2.4 - 4.5 mg/dL [facility] Specimen Plasma specimen Performing Organization Address City/[facility]/Zipcode Phone Number [facility] DEPARTMENT OF PATHOLOGY AND [address] [place] [address] Parathyroid hormone (05/27/2018 7:57 AM PET CARETAKER) PTH 88 (H) 15 - 65 pg/mL [facility] Specimen Blood Performing Organization Address City/[facility] Phone Number [facility] DEPARTMENT OF PATHOLOGY AND [address] [place] [phone] [place] [address] LDH (05/27/2018 7:57 AM PET CARETAKER) LDH 215 87 - 225 U/L [facility] Specimen Plasma specimen Performing Organization Address City/[facility] Phone Number [facility] DEPARTMENT OF PATHOLOGY AND [address] [place] [address] Hemoglobin A1c (05/27/2018 7:57 AM PET CARETAKER) Hemoglobin A1C 6.4 (H) 4.0 - 5.6 % [facility] Comment: HOSPITAL HbA1c cutoffs for diagnosing diabetes: 4.0% - 5.6%=normal 5.7% - 6.4%=increased risk for diabetes (prediabetes) >=6.5%=diabetes Goals for glycemic control (ADA 2016) < 7.0%Target for non adults with diabetes. More or less stringent targets may be appropriate for individual patients. <7.5% Target for Children and adolescents with type 1 diabetes. Specimen Blood Performing Organization Address [facility] Phone Number [facility] DEPARTMENT OF PATHOLOGY AND [address] [place] [phone] Fasting glucose level (05/27/2018 7:57 AM PET CARETAKER) Glucose, fasting 177 (H) 65 - 99 mg/dL [facility] Specimen Blood Performing Organization Address City/[facility]/Zipcode Phone Number [facility] DEPARTMENT OF PATHOLOGY AND [address] [place] [address] Creatinine level (05/27/2018 7:57 AM PET CARETAKER) Creatinine 3.64 (H) 0.50 - 0.90 mg/dL [facility] Specimen Plasma specimen Performing Organization Address City/[facility] Phone Number [facility] DEPARTMENT OF PATHOLOGY AND [address] [place] [phone] [place] [phone] Cholesterol (05/27/2018 7:57 AM PET CARETAKER) Pathologist [facility] [place] Cholesterol 124 <200 mg/dL [facility] Specimen Plasma specimen Performing Organization Address City/[facility] Phone Number [facility] DEPARTMENT OF PATHOLOGY AND [address] [place] [address] Occult blood, stool (05/26/2018 8:00 AM PET CARETAKER)Only the most recent of3 resultswithin the time period is included. [facility] Occult blood, Negative for occult blood. [facility] stool Comment: HOSPITAL Specimen Information Specimen Source: Stool Specimen Site: Nonpreserved Specimen Stool - Nonpreserved Performing Organization Address City/[facility] Phone Number [facility] DEPARTMENT OF PATHOLOGY AND [address] [place] [phone] [place] [phone] Syphilis treponemal IgG (05/11/2018 11:35 AM PET CARETAKER) [facility] Syphilis Non-reactiveComment Non-reactive [facility] treponemal IgG : Non-reactive: No HOSPITAL serological evidence of Syphilis infection Specimen Serum Performing Organization Address City/[facility] Phone Number [facility] DEPARTMENT OF PATHOLOGY AND [address] [place] [phone] [place] [phone] Urinalysis screen and microscopy, with reflex to culture (05/11/2018 11:35 AM PET CARETAKER) Specimen site Clean catch [facility] Color, UA Straw [facility] Appearance, UA Clear [facility] Specific gravity, UA 1.010 1.001 - 1.035 [facility] pH, UA 6.0 5.0 - 8.5 [facility] Protein, UA 2+ (A) Negative [facility] Glucose, UA 2+ (A) Negative [facility] Ketones, UA Negative Negative [facility] Bilirubin, UA Negative Negative [facility] Blood, UA Negative Negative [facility] Nitrite, UA Negative Negative [facility] Urobilinogen, UA <2.0 <2.0 [facility] Leukocyte esterase, Trace (A) Negative [facility] Epithelial cells, UA 1 /HPF [facility] WBC, UA 11 (H) 0 - 4 /HPF [facility] RBC, UA <1 0 - 5 /HPF [facility] Bacteria, UA Few None seen [facility] Yeast, UA None seen [facility] Yeast with None seen [facility] pseudohyphae, UA HOSPITAL Specimen Urine Performing Organization Address City/[facility] Phone Number [facility] DEPARTMENT OF PATHOLOGY AND [address] [place] [address] HIV Ag/Ab combination (05/11/2018 11:35 AM PET CARETAKER) [facility] HIV Ag/Ab combination Non-reactive Non-reactive [facility] Specimen Blood Performing Organization Address City/[facility] Phone Number [facility] DEPARTMENT OF PATHOLOGY AND [address] [place] [address] TB T-SPOT (05/11/2018 11:35 AM PET CARETAKER) [facility] TB T-SPOT SEE NOTE [facility] REF Comment: LAB T-SPOT TUBERCULOSIS Nil Control: 0 Panel A: [...] FOR USE WITH T=SPOT.TB TEST. Performed by: [facility] Molecular Tuberculosis Laboratory [facility] ([id number]) [place], [place] [address] Specimen Blood Performing Organization Address City/State/Zipcode Phone Number [facility] DEPARTMENT OF PATHOLOGY AND [address] [place] [address] [facility] MEDICINE [facility] REF [facility] Nicotine and metabolites, serum (05/11/2018 11:35 AM PET CARETAKER) [facility] Nicotine <2.0 0.0 - 2.[address] [facility] ng/mL HOSPITAL Cotinine <2.0 0.0 - 2.[address] [facility] ng/mL HOSPITAL 8-WG-bfpqpigs <5.0 0.0 - 5.[address] [facility] Comment: ng/mL HOSPITAL This test was developed and its performance characteristics determined by the Department of Pathology and Genomic Medicine, [facility]. Serum nicotine and its metabolites cotinine and 0-QN-ztbmukvm are tested by HPLC tandem mass spectrometry. It has not been cleared or approved by FDA. The laboratory is regulated under CLIA as qualified to perform high-complexity testing. This test is used for clinical purposes. It should not be regarded as investigational or for research. Specimen Blood Performing Organization Address City/State/[facility] Phone Number [facility] DEPARTMENT OF PATHOLOGY AND [address] [place] [phone] [address] Hepatitis B surface Ab, quantitative (05/11/2018 11:35 AM PET CARETAKER) [facility] Hepatitis B surface <3.10 IU/L [facility] REF LAB Ab Comment: The anti-HBs is less than 10 [...] Cellular and Tissue-Based Products (HCT/P). Performed by [facility], [address] [place] [phone] www.I Do Now I Don't, Soto Jasmine MD - Lab. Director Specimen Serum Performing Organization Address City/[facility]/Zipcode Phone Number [facility] [address] [place] [address] [facility] [address] [place] [address] Hepatitis C antibody (05/11/2018 11:35 AM PET CARETAKER) Hepatitis C Ab Non-reactive Non-reactive [facility] Specimen Blood Performing Organization Address City/[facility] Phone Number [facility] DEPARTMENT OF PATHOLOGY AND [address] [place] [phone] Hepatitis A antibody IgM (05/11/2018 11:35 AM PET CARETAKER) Pathologist [facility] [place] Hepatitis A IgM Non-reactive Non-reactive [facility] Specimen Performing Organization Address [facility] Phone Number [facility] DEPARTMENT OF PATHOLOGY AND [address] [place] [address] Hepatitis A antibody total (05/11/2018 11:35 AM PET CARETAKER) Pathologist [facility] [place] Hepatitis A total Reactive (A) Non-reactive [facility] Comment: HOSPITAL Hepatitis A Total Antibody reactive. Hepatitis A IgM antibody will be performed and reported separately when completed. Specimen Blood Performing Organization Address [facility] Phone Number [facility] DEPARTMENT OF PATHOLOGY AND [address] [place] [address] Hepatitis B core antibody total (05/11/2018 11:35 AM PET CARETAKER) Pathologist [facility] [place] Hepatitis B core Non-reactive Non-reactive [facility] Specimen Blood Performing Organization Address City/[facility] Phone Number [facility] DEPARTMENT OF PATHOLOGY AND [address] [place] [address] C-peptide (05/11/2018 11:35 AM PET CARETAKER) [facility] C-peptide 11.0 (H) 1.1 - 4.4 ng/mL [facility] Specimen Plasma specimen Performing Organization Address City/[facility]/Zipcode Phone Number [facility] DEPARTMENT OF PATHOLOGY AND [address] [place] [address] Urine drugs of abuse screen (05/11/2018 11:35 AM PET CARETAKER) Pathologist [facility] [place] Amphetamine screen, Negative TERRIL urine [facility] Barbiturate screen, Negative TERRIL urine [facility] Benzodiazepine Negative TERRIL screen, urine [facility] Cannabinoid screen, Negative TERRIL urine [facility] Cocaine screen, urine Negative [facility] Methadone metabolite Negative TERRIL (EDDP), urine [facility] Opiates screen, urine Negative [facility] Oxycodone screen, Negative TERRIL urine [facility] Phencyclidine screen, Negative TERRIL urine [facility] Tricyclic screen, Negative TERRIL urine Comment: [facility] Drug screen minimum concentration [facility] Hhfspvkolmnv9638 ng/mL Barbiturates 200 ng/mL Svzmlmelwpyhyxn970 ng/mL Fcneulb824 ng/mL Teeanpfgx077 ng/mL Wtqpeaz822 ng/mL Schfkovae602 ng/mL Phencyclidine 25 ng/mL Xvyezyhldgnk38 ng/mL Uwcnetymuc1247 ng/mL Negative test results indicates presumptive evidence of lack of clinically significant drug concentration in this urine specimen. Positive test results are presumptive evidence of clinically significant drug concentration in this urine specimen. Testing performed for medical purposes only. Specimen Urine Performing Organization Address City/[facility] Phone Number [facility] DEPARTMENT OF PATHOLOGY AND [address] [place] [address] Hepatitis B surface antibody (05/11/2018 11:35 AM PET CARETAKER) Pathologist [facility] [place] Hepatitis B surface Non-reactive Non-reactive [facility] Specimen Blood Performing Organization Address City/[facility] Phone Number [facility] DEPARTMENT OF PATHOLOGY AND [address] [place] [address] Hepatitis B surface antigen (05/11/2018 11:35 AM PET CARETAKER) Pathologist [facility] [place] Hepatitis B surface Non-reactive Non-reactive [facility] Specimen Blood Performing Organization Address City/[facility] Phone Number [facility] DEPARTMENT OF PATHOLOGY AND [address] [place] [address] Partial thromboplastin time, activated (05/11/2018 11:35 AM PET CARETAKER) [facility] PTT 31.7 23.0 - 36.[address] [facility] Comment: [facility] PTT therapeutic range for unfractionated heparin is 61.0-112.0 seconds which corresponds to Anti-Xa 0.3-0.7 U/ml. Specimen Blood Performing Organization Address City/State/Zipcode Phone Number [facility] DEPARTMENT OF PATHOLOGY AND [address] [place] [phone] [address] Prothrombin time with INR (05/11/2018 11:35 AM PET CARETAKER) Pathologist [facility] [place] Prothrombin time 14.3 11.5 - 14.5 [facility] INR 1.1 TERRIL Comment: [facility] International Normalized Ratio (INR) is a therapeutic HOSPITAL monitoring tool for patients who are stable on oral anticoagulant therapy. An INR of 2.0-3.0 is suggested for deep vein thrombosis/pulmonary embolism. Specimen Blood Performing Organization Address City/[facility] Phone Number [facility] DEPARTMENT OF PATHOLOGY AND [address] [place] [phone] [address] CBC with platelet and differential (05/11/2018 11:35 AM PET CARETAKER) [facility] WBC 6.54 4.50 - 11.[address] [facility] k/uL [facility] RBC 2.77 (L) 4.20 - 5.[address] [facility] m/uL [facility] HGB 8.9 (L) 12.0 - 16.0 [facility]/dL [facility] HCT 27.4 (L) 37.0 - 47.0 % [facility] MCV 98.9 82.0 - 100.0 [facility] MCH 32.1 27.0 - 34.0 pg [facility] MCHC 32.5 31.0 - 37.[address] [facility] g/dL [facility] RDW - SD 47.2 37.0 - 55.0 fL [facility] MPV 10.8 8.8 - 13.2 fL [facility] Platelet count 172 150 - 400 k/uL [facility] Nucleated RBC 0.00 /100 WBC [facility] Neutrophils 71.3 (H) 39.0 - 69.0 % [facility] Lymphocytes 18.3 (L) 25.0 - 45.0 % [facility] Monocytes 6.6 0.0 - 10.0 % [facility] Eosinophils 3.2 0.0 - 5.0 % [facility] Basophils 0.3 0.0 - 1.0 % [facility] Immature granulocytes 0.3Comment: 0.0 - 1.0 % [facility] "Immature HOSPITAL granulocytes" (promyelocytes , myelocytes, metamyelocytes ) Specimen Blood Performing Organization Address City/[facility] Phone Number [facility] DEPARTMENT OF PATHOLOGY AND [address] [place] [address] Serum electrophoresis (05/11/2018 11:35 AM PET CARETAKER) Protein 7.0 6.3 - 8.[address] [facility] Comment: g/dL HOSPITAL 4.6-7.0 g/dL 1 week 4.4-7.6 g/dL 7 months-1year5.1-7.3 g/dL 1-2 years5.6-7.5 g/dL >3 years6.0-8.0 g/dL 18-150 6.3-8.3 g/dL SPE albumin 4.58 4.00 - 5.[address] [facility] g/dL [facility] SPE alpha 1 0.18 0.10 - 0.[address] [facility] g/dL [facility] SPE alpha 2 0.77 0.58 - 0.[address] [facility] g/dL [facility] SPE beta 0.70 0.50 - 1.[address] [facility] g/dL [facility] SPE gamma 0.78 0.60 - 1.[address] [facility] g/dL [facility] SPE extended See [facility] interpretation CommentComment: HOSPITAL A normal serum protein study. SPE interpretation See [facility] CommentComment: [facility] Connie Dillon MD; Diaz Felix, PhD; Trevor Fraire MD, PhD Specimen Serum Performing Organization Address City/[facility]/Zipcode Phone Number [facility] DEPARTMENT OF PATHOLOGY AND [address] [place] [address] Comprehensive metabolic panel (05/11/2018 11:35 AM PET CARETAKER) Sodium 141 135 - [address] [facility] mEq/L [facility] Potassium 4.1 3.5 - 5.[address] [facility] mEq/L [facility] Chloride 103 98 - 112 mEq/L [facility] CO2 21 (L) 24 - 31 mEq/L [facility] Anion gap 17@ANIO (H) 7 - 15 mEq/L [facility] BUN 86 (H) 8 - 23 mg/dL [facility] Creatinine 3.06 (H) 0.50 - 0.[address] [facility] mg/dL [facility] Glucose 264 (H) 65 - 99 mg/dL [facility] Calcium 10.0 8.8 - 10.[address] [facility] mg/dL [facility] Protein 7.0 6.3 - 8.3 g/dL [facility] Comment: HOSPITAL 4.6-7.0 g/dL 1 week 4.4-7.6 g/dL 7 months-1year5.1-7.3 g/dL 1-2 years5.6-7.5 g/dL >3 years6.0-8.0 g/dL 18-150 6.3-8.3 g/dL Albumin 3.8 3.5 - 5.0 g/dL [facility] A/G ratio 1.2 0.7 - 3.8 [facility] Alkaline phosphatase 99 35 - 104 U/L [facility] AST 20 10 - 35 U/L [facility] ALT 14 5 - 50 U/L [facility] Total bilirubin 0.4 0.0 - 1.[address] [facility] mg/dL [facility] Specimen Plasma specimen Performing Organization Address City/[facility] [facility] Phone Number [facility] DEPARTMENT OF PATHOLOGY AND [address] [place] [phone] Gram stain (05/11/2018 10:42 AM PET CARETAKER) Gram stain result No WBC's [facility] Many Gram negative rods [facility] Few Gram positive rods Comment: Specimen Information Specimen Source: Urine Specimen Site: Clean catch Specimen Urine Performing Organization Address City/[facility] Phone Number [facility] DEPARTMENT OF PATHOLOGY AND [address] [place] [phone] Urine culture (05/11/2018 10:42 AM PET CARETAKER) Urine culture Escherichia coli [facility] isolate >10-5 cfu/ml HOSPITAL The performance characteristics of this assay on this isolate were validated by the Microbiology Laboratory at [facility].This source has not been approved by the [...] Susceptible Performing Organization Address City/State/Zipcode Phone Number [facility] DEPARTMENT OF PATHOLOGY AND [address] [place] [address] GENOMIC MEDICINE [address] [address] after 01/12/2018 Insurance Payer Benefit Plan / Subscriber ID Effective Phone Address Type Group Dates MEDICARE MEDICARE PART A xxxxxxxxxxx 2014-Pre [place] Medicare AND B sent COMMERCIAL MISC MISC COMMERCIAL xxxxxxxxxx 2014-Pre Commercial sent [phone] [address] [address] (Home) [place] [address] Navneet Villagran Transplant Self 1950 [phone] [address] (Home) [place] [address] Advance Directives Patient has advance care planning documents on file. For more information, please contact:Rene Rocha[address] [place] [address]
--- OUTSIDE RECORDS SUMMARY | 2019-01-13 14:37 | XMS REPORT ---
:1950 [facility] Team Providers Name Role Phone [...] Status Dosage Date Date Advair Diskus MEDISPAN 62825-0 250-50 MCG/DOSE Active 1 puff 696-00 Inhalation Twice a day Atorvastatin MEDISPAN 75271-8 40 MG Orally Active 1 tablet Calcium 121-05 Once a day Omeprazole MEDISPAN 03162-6 20 mg Orally Active 1 tablet 915-30 twice a day (bid) Spironolactone MEDISPAN 97128-8 25 MG Orally Active 1 tablet 803-11 Once a day Nasonex MEDISPAN 55342-3 50 MCG/ACT Active 2 sprays in 288-01 Nasally Once a each nostril day Januvia MEDISPAN 96647-2 50 MG Orally Active 1 tablet 112-28 Once a day Carvedilol MEDISPAN 49988-4 12.5 MG Orally October 31, Active as directed 295-01 twice a day 2015 (bid) HydrALAZINE HCl MEDISPAN 19923-3 25 MG Orally Feb 14, Active 1 tablet 554-00 three times a 2015 day (tid) Isosorbide MEDISPAN 18423-3 10 mg Orally Feb 14, Active 1 tablet Dinitrate 771-01 three times a 2015 day (tid) Glimepiride MEDISPAN 57722-4 4 MG Orally Active 1 tablet 256-01 [...]
--- OUTSIDE RECORDS SUMMARY | 2019-01-13 14:37 | XMS REPORT ---
:1950 [facility] Team Providers Name Role Phone [...] End Status Dosage Date Date Carvedilol MEDISPAN 90829-4 6.25 MG Orally October 31, Active as directed 135-01 twice a day 2015 (bid) Carvedilol MEDISPAN 36750-1 3.125 MG Orally October 31, Inactive 1 tablet 051-01 twice a day 2015 (bid) Advair Diskus MEDISPAN 31448-7 250-50 MCG/DOSE Active 1 puff 696-00 Inhalation Twice a day Nasonex MEDISPAN 96569-1 50 MCG/ACT Active 2 sprays in 288-01 Nasally Once a each day nostril Spironolactone MEDISPAN 27744-4 25 MG Orally Active 1 tablet 803-11 Once a day Amlodipine MEDISPAN 64848-1 2.5 MG Orally SeptemberOctober 31, Inactive 1 tablet Besylate 100-22 Once a day 2015 Januvia MEDISPAN 84006-4 50 MG Orally Active 1 tablet 112-28 Once a day Glimepiride MEDISPAN 04416-2 4 MG Orally Active 1 tablet 256-01 Once a day with breakfast or the first main meal of the day Atorvastatin MEDISPAN 33659-2 40 MG Orally Active 1 tablet Calcium 121-05 Once a day [facility]8 20 mg Orally Active 1 tablet 915-30 [...]
--- OUTSIDE RECORDS SUMMARY | 2019-01-13 14:37 | XMS REPORT | Continuity of Care Document ---
:1950 Author Organization Subtext Information [facility] Care Team Providers Name Role Phone [facility] Unavailable Unavailable Problems Problem Status Onset Classification Date Comments Source Date Reported N18.3 - "CHRONIC Active [facility] KIDNEY DISEASE, STAGE" [address] [place] ARANESP 60 MCG, Active CPT-33114, D63.1 [address] [place] DENSE BREAST Active [facility] [place] SCREENING Active 016 [place] SCREENING MAMMO Active [facility]16 [place] CPT 12902, ANEMIA IN Active CKD D63.1 016 [place] [...] Active Problem 04/10/2016 Chan Dorman MD, PA R06.02 Active [place] SHORTNESS OF BREATH Active [place] ANEMIA IN CHRONIC Active KIDNEY DISEASE [place] ENCNTR SCREEN Active MAMMOGRAM FOR [place] MALIGNANT NE INCONCLUSIVE MAMMOGRAM Active [facility] Medications Medication Details Route Status Patient Ordering Order Source Instructions Provider Date HydrALAZINE HCl 1 tablet Orally Active 25 MG Orally Al-Azzeh 02/14/ Chan three times a 2015, day (tid) JUAN GUY Isosorbide 1 tablet Orally Active 10 mg Orally Al-Azzeh Chan Dinitrate three times a 2015, (tid) [...] Aranesp) Non-formula ry Aranesp 60 No Longer microgram, Active 2015 1 mL, Route: SUB-Q, Drug form: INJ, ONCALL, Start date: 10/16/15 12:00:00 CDT, Duration: 12 hr, Stop date: 10/16/15 23:59:00 CDTNotes: (Same as: Aranesp) Non-formula ry Amlodipine 1 tablet Orally No Longer 2.5 MG Orally Al-Azzeh Chan Besylate Active Once a day 2015 MD Dorman PA Aranesp 60 No Longer MH microgram, Active 2015 1 mL, Route: SUB-Q, Drug form: INJ, ONCALL, Start date: 10/03/15 11:00:00, Duration: 12 hr, Stop date: 10/03/15 22:59:00Not es: (Same as: Aranesp) Non-formula ry Aranesp 60 Inactive microgram, 2015 1 mL, Route: SUB-Q, Drug form: INJ, ONCALL, Start date: 09/17/15 13:00:00, Duration: 12 hr, Stop date: 09/18/15 0:59:00Note s: (Same as: Aranesp) Non-formula ry atorvastatin PO, Active Bedtime, 0 2015 Refill(s) Coreg PO, BID, 0 Active Refill(s) 2015 [facility] Spironolactone 25 mg=2 Active tab, PO, 2015 Daily, # 60 tab, 0 Refill(s) glimepiride PO, Daily, Active 0 Refill(s) 2015 Janumet PO, BID, 0 Active Refill(s) 2015 Aranesp 60 Inactive microgram, 2015 [facility] 1 mL, Route: SUB-Q, Drug form: INJ, ONCALL, Start date: 08/30/15 13:00:00, Duration: 1 day, Stop date: 08/31/15 12:59:00Not es: (Same as: Aranesp) Non-formula ry Aranesp 60 Inactive microgram, 2015 [facility] Route: SUB-Q, Drug form: INJ, ONCALL, Start date: 08/10/15 13:00:00, Duration: 1 day, Stop date: 08/11/15 12:59:00Not es: (Same as: Aranesp) Non-Formula ry Advair Diskus 1 puff Inhalation Active 250-50 Al-Azzeh Chan MCG/DOSE Dandy Inhalation MD PA Twice a day Atorvastatin 1 tablet Orally Active 40 MG Orally Al-Azzeh Chan Calcium Once a day MD Dandy, PA Omeprazole 1 tablet Orally Active 20 [...] Orally Al-Azzeh Chan with Once a day wade Dorman MD, PA or the first main meal of the day Allergies, Adverse Reactions, Alerts Substance Category Reaction Severity Reaction Status Date Comments Source type Reported penicillin Adverse Info Not Adverse Active Chan Reaction Available Reaction 6 MD Dorman PA Immunizations No Data Provided for This Section Results No Data Provided for This Section Pathology Reports No Data Provided for This Section Diagnostic Reports Report Value Date Source Breast Complete Eduin US - BREAST COMPLETE EDUIN US 10/04/2015 [facility] ULTRASOUND OF BOTH BREASTS AND BOTH AXILLA: 10/04/2015 CLINICAL: Dense breasts. Comparison is made to exam dated: 09/07/2015 mammogram - [facility]. Color flow and real-time ultrasound of both [...] breast density, which can be performed at [facility]. Mart powert/:10/04/2015 13:42:31 Pattern Shop Supervisor: Chicho Dejesus, [facility] This exam was dictated and interpreted by [id number] for [facility]. letter sent: Normal exam Ultrasound BI-RADS: 2 Benign Digital Mammo Screening - DIGITAL MAMMO SCREENING EDUIN MA 09/07/2015 [facility] Eduin MA BILATERAL DIGITAL SCREENING MAMMOGRAM WITH CAD: 09/07/2015 CLINICAL: Routine. Current study was evaluated with a Computer [...] the patient by the referring physician. Mart simental/penrad:09/19/2015 08:31:07 Pattern Shop Supervisor: Anne Reina, [facility] This exam was dictated and interpreted by [id number] for [facility]. letter sent: Normal [place] Mammogram BI-RADS: 2 Benign Retroperitoneal limited w PROCEDURE: RENAL ULTRASOUND WITH DOPPLER 2015 CLAUDIA Red Doppler US CLINICAL INDICATION: N18.3. Chronic kidney disease. COMPARISON: None. TECHNIQUE: Multiple longitudinal and transverse [...] renal artery stenosis. SL: 15 Chest 2 views DX EXAMINATION: Chest 2 views 08/09/2015 [facility] CLINICAL HISTORY: Shortness of breath. COMPARISON: No prior similar examinations are currently available for comparison. The hyperinflated lungs are clear of consolidation, pleural effusion, and pneumothorax. The heart size is at the upper limits of normal. Mild spinal degenerative changes without acute injury or suspicious focal osseous lesion. IMPRESSION: 1. Mild hyperinflation. 2. Heart size near upper limits of normal. SL:17 Consultation Notes No Data Provided for This Section Discharge Summaries No Data Provided for This Section History and Physicals No Data Provided for This Section Vital Signs Vital Sign Value Date Comments [...] Chan Dorman MD, PA Weight 70 10/03/2015 [facility] BMI Calculated 25.68 10/03/2015 [facility] Height 165.1 cm 10/03/2015 [facility] Height 165.1 cm 08/13/2015 [facility] BMI Calculated 25.68 08/13/2015 [facility] Weight 70 08/13/2015 [facility] Encounters Location Location Encounter Encounter Reason Attending ADM DC Status Source Details Type Number For Provider Date Date [facility] [id number] Mohammad 08/09 08/10 YUSRA Morales /2015 [facility] Outpt Diag [id number] Logan 08/22 08/23 [facility] [id number] Ameena 08/29 09/28 YUSRA Urias-Jez /2015 [facility] Outpatient [id number] Ameena 09/06 09/07 Tico Adonay-Ji /2015 [facility] OP [id number] Ameena 10/01 [facility]2015 [facility] Outpatient [id number] Ameena 10/03 10/04 Tico Adonay-Jiw /2015 [facility] echo/caroti [id number] 10/15 10/15 Chan Dorman MD, d/arterial [id number] /2015 Dandy, PA dopplers [id number] , PA Chan echo/caroti [id number] 10/15 10/15 Chan Dorman MD, d/arterial [id number]- /2015 Dandy, PA dopplers [id number] , PA Chan echo/caroti [id number] 10/15 10/15 Chan Dorman MD, d/arterial [id number] /2015 Dandy, PA dopplers [id number] , PA Chan Follow-Up [id number] 10/31 10/31 Chan Dorman MD, [id number] /2015 Dandy, JUAN [id number] , PA [facility] Follow-Up [id number] 10/31 10/31 Chan Dorman MD, [id number] /2015 Dandy, PA [id number] , PA [facility] Follow-Up [id number] 02/14 02/14 Chan Dorman MD, [id number]- /2015 Dandy, PA [id number] , PA Procedures Procedure Code Date Perfomer Comments Source [facility] BSO - Total [id number] 06/29/1997 [facility] abdominal hysterectomy and bilateral salpingo-oophorect vivien Back care [id number] [facility] Assessment and Plan No Data Provided for This Section Plan of Care No Data Provided for This Section Social History Social History Date Source Social History ElementQualifiersDate Reported 02/15/2016 Chan Dorman MD, PA Tobacco Use: . Are you a: never smoker Feb 15, 2016 Do you drink alcohol? . Status: No Feb 15, 2016 Social History TypeResponse 11/01/2015 Pérez Smoking Status Never smoker; Exposure to Tobacco Smoke None; Cigarette Smoking Last 365 Days No; Reg Smoking Cessation Counseling Yes Social History TypeResponse 08/11/2015 CLAUDIA Red Smoking Status Never smoker; Exposure to Tobacco Smoke None; Cigarette Smoking Last 365 Days No; Reg Smoking Cessation Counseling Yes Family History No Data Provided for This Section Advance Directives No Data Provided for This Section Functional Status No Data Provided for This Section
--- OUTSIDE RECORDS SUMMARY | 2019-01-13 14:37 | XMS REPORT | Clinical Summary ---
:[address] [facility] Address [address] [place] [address] Care Team Providers Name Role Phone Unavailable [...] Pre-Admission Resource, Oqmt Testing Preadmit Phone after 01/12/2018 Social History Tobacco Use Types [...] W/ULTRASOUND CDT Special Needs (LINEAR SCOPE) after 01/12/2018 Results REPORT OF PROCEDURE - ENDOSCOPY URL (04/12/2018 3:17 PM CDT) Narrative Performed At POC-Glucose meter (04/12/2018 2:14 PM CDT) POC-Glucose Meter 190 (H)Comment: TESTED AT 70 - 110 mg/dL [facility] [address] [facility] [address] [facility] [address] Specimen Blood Performing Organization Address City/State/Zipcode Phone Number [facility] MEDICAL [address] [place] [address] CENTER after 01/12/2018 Insurance Payer Benefit Plan / Group Subscriber ID Type Phone Address MEDICARE MEDICARE A B xxxxxxxxxxx Medicare MCR GENERIC MEDICARE xxxxxxxxxx [facility] SUPPLEMENT/INDIVIDUAL SUPPLEMENT
[2019-01-13 15:19] LABS: Absolute Lymphocytes (CBC) 1.3 K/uL (0.7-4.9); Basophils % 0.3 % (0-1.3); Eosinophils % 1.2 % (0-4.4); Lymphocytes % 15.5 % (15.3-44.8); MPV 9.2 fL (7.6-11.3); Monocytes % 6.2 % (3.3-12.3); RBC Red Blood Cell Count 3.19 M/uL (3.86-4.86)
[2019-01-13] MEDS ORDERED: MORPHINE 4 MG/ML SYR ONE (15:27)
[2019-01-13] MEDS ORDERED: NA CHLORIDE 0.9% 1,000 ML ONE (15:27)
[2019-01-13] MEDS ORDERED: ONDANSETRON 4 MG/2 ML VIAL ONE (15:27)
[2019-01-13 15:30] LABS: Albumin 3.9 g/dL (3.4-5.0); Bilirubin Direct 0.1 mg/dL (0-0.2); Bilirubin Total 0.3 mg/dL (0.2-1.0); Potassium 4.3 mmol/L (3.5-5.1); Protein, Total 7.3 g/dL (6.4-8.2)
[2019-01-13] MEDS ORDERED: DIPHENHYDRAMINE 50 MG/ML VIAL ONE (15:33)
--- NOTE | 2019-01-13 15:54 | RAD REPORT ---
EXAM DESCRIPTION: CT - Stone Protocol - 01/13/2019 3:23 pm CLINICAL HISTORY: Abdominal pain. Flank pain COMPARISON: May 2018 TECHNIQUE: Computed axial tomography of the abdomen pelvis was obtained without oral or IV contrast. Lack of IV and oral contrast limits evaluation of solid organs, bowel, and vessels. Coronal reformat gale images were obtained and reviewed. All CT scans are performed using dose optimization technique as appropriate and may include automated exposure control or mA/KV adjustment according to patient size. FINDINGS: A renal calculus is not seen. An ureteral calculus is not noted. A bladder calculus is not present. Cholelithiasis without gallbladder wall thickening Small hepatic cyst. , spleen, and pancreas appear grossly normal. Small adrenal adenoma is suspected There is no evidence of diverticulitis. The appendix appears normal Postsurgical changes involve L4 through S1 Cystocele IMPRESSION: Negative for a genitourinary calculus Cholelithiasis
--- NOTE | 2019-01-13 16:52 | EDPHYS ---
Physician Documentation [facility] Name: Tracy Butt Age: 68 yrs Sex: Female : 1950 Arrival Date: 01/13/2019 Time: 14:29 Bed 7 Private MD: Noe Taylor ED Physician Dre Rubin HPI: 01/13 15:05 This 68 yrs old Female presents to ER via Ambulatory with complaints of pm1 Nausea, Right Leg Pain, Kidney Problem. 15:05 The patient presents to the emergency department with nausea. Onset: The pm1 symptoms/episode began/occurred 2 day(s) ago. Possible causes: chronic kidney disease. The symptoms are aggravated by nothing. The symptoms are alleviated by nothing. Associated signs and symptoms: Pertinent positives: nausea, Pertinent negatives: abdominal pain, diarrhea, dysuria, fever. Severity of symptoms: in the emergency department the symptoms are unchanged. The patient has been recently seen by a physician: the patient's primary care provider, For check up, had labs drawn and told today that her kidney function was elevated and that she may need some fluids for dehydration. Historical: - Allergies: 14:36 CHLORAMPHENICOL; hb 14:36 PENICILLINS; hb - Home Meds: 14:36 atorvastatin 20 mg Oral tab 1 tab once daily [Active]; brimonidine 0.2 % ophthalmic hb drop 1 drop every 8 hours [Active]; calcium acetate miscellaneous powd [Active]; Cardura 8 mg Oral tab 1 tab once daily [Active]; carvedilol 25 mg Oral tab 1 tab 2 times per day [Active]; ciprofloxacin tablet 500 mg 1 tab by mouth two times a day [Active]; furosemide 20 mg Oral tab 1 tab 2 times per day [Active]; glimepiride 2 mg Oral tab 1 tab once daily [Active]; hydralazine 100 mg Oral tab 1 tab 2 times per day [Active]; hydrocortisone 2.5 % Topical crea once daily [Active]; Integra F 125-1-40-3 mg Oral cap 1 cap once daily [Active]; Iron CR 65 mg Oral twice a day [Active]; ketorolac 0.4 % ophthalmic drop [Active]; losartan 50 mg Oral tab 1 tab once daily [Active]; darbepoetin bella in polysorbate injection [Active]; vitamin A 8,000 unit Oral cap 1 cap once daily [Active]; Pepcid Oral [Active]; - PMHx: 14:36 Hypertension; Diabetes - NIDDM; kidney disease; hb - PSHx: 14:36 Hysterectomy; left knee replacement; back sx diane placed; hb - Immunization history:: Adult Immunizations up to date. - Social history:: Smoking status: Patient/guardian denies using tobacco. - Ebola Screening: : No symptoms or risks identified at this time. ROS: 15:05 Constitutional: Negative for fever, chills, and weight loss, Eyes: Negative for injury, pm1 pain, redness, and discharge, ENT: Negative for injury, pain, and discharge, Neck: Negative for injury, pain, and swelling, Cardiovascular: Negative for chest pain, palpitations, and edema, Respiratory: Negative for shortness of breath, cough, wheezing, and pleuritic chest pain, Abdomen/GI: Negative for abdominal pain, nausea, vomiting, diarrhea, and constipation. 15:05 : Negative for injury, bleeding, discharge, and swelling, MS/Extremity: Negative for injury and deformity, Skin: Negative for injury, rash, and discoloration, Neuro: Negative for headache, weakness, numbness, tingling, and seizure. 15:05 Back: Positive for of the right low back. Exam: 15:05 Constitutional: This is a well developed, well nourished patient who is awake, alert, pm1 and in no acute distress. Head/Face: Normocephalic, atraumatic. Eyes: Pupils equal round and reactive to light, extra-ocular motions intact. Lids and lashes normal. Conjunctiva and sclera are non-icteric and not injected. Cornea within normal limits. Periorbital areas with no swelling, redness, or edema. ENT: Nares patent. No nasal discharge, no septal abnormalities noted. Tympanic membranes are normal and external auditory canals are clear. Oropharynx with no redness, swelling, or masses, exudates, or evidence of obstruction, uvula midline. Mucous membranes moist. Neck: Trachea midline, no thyromegaly or masses palpated, and no cervical lymphadenopathy. Supple, full range of motion without nuchal rigidity, or vertebral point tenderness. No Meningismus. Chest/axilla: Normal chest wall appearance and motion. Nontender with no deformity. No lesions are appreciated. Cardiovascular: Regular rate and rhythm with a normal S1 and S2. No gallops, murmurs, or rubs. Normal PMI, no JVD. No pulse deficits. Respiratory: Lungs have equal breath sounds bilaterally, clear to auscultation and percussion. No rales, rhonchi or wheezes noted. No increased work of breathing, no retractions or nasal flaring. Abdomen/GI: Soft, non-tender, with normal bowel sounds. No distension or tympany. No guarding or rebound. No evidence of tenderness throughout. 15:05 Skin: Warm, dry with normal turgor. Normal color with no rashes, no lesions, and no evidence of cellulitis. MS/ Extremity: Pulses equal, no cyanosis. Neurovascular intact. Full, normal range of motion. 15:05 Back: pain, that is mild, of the right low back, vertebral tenderness, is not appreciated. 15:05 Neuro: Orientation: is normal, Motor: is normal, moves all fours. Vital Signs: 14:34 BP 144 / 66; Pulse 70; Resp 16; Temp 98.3; Pulse Ox 98% on R/A; Weight 68.04 kg; Height hb 5 ft. 4 in. (162.56 cm); Pain 8/10; 15:32 BP 167 / 74; Pulse 76; Resp 18; Pulse Ox 100% on R/A; aj 17:04 BP 166 / 71; Pulse 76; Resp 18; Pulse Ox 99% on R/A; aj 14:34 Body Mass Index 25.75 (68.04 kg, 162.56 cm) hb MDM: 14:55 Patient medically screened. pm1 16:45 Data reviewed: vital signs. Data interpreted: Pulse oximetry: on room air is 100 %. pm1 Interpretation: normal. 16:46 Counseling: I had a detailed discussion with the patient and/or guardian regarding: the pm1 historical points, exam findings, and any diagnostic results supporting the discharge/admit diagnosis. Counseling: I had a detailed discussion with the patient and/or guardian regarding: lab results, radiology results, the need for outpatient follow up, Nephrology, to return to the emergency department if symptoms worsen or persist or if there are any questions or concerns that arise at home. 17:28 ED course: Creatine clearance of 16 ml/min adjusted for body weight. pm1 01/13 14:47 Order name: CBC with Diff; Complete Time: 15:41 01/13 14:47 Order name: BMP; Complete Time: 15:41 01/13 14:47 Order name: LFT's; Complete Time: 15:41 01/13 14:47 Order name: Creatinine for Radiology; Complete Time: 15:41 01/13 14:47 Order name: Lipase; Complete Time: 15:41 01/13 17:23 Order name: Urine Microscopic Only; Complete Time: 17:42 pm1 01/13 15:04 Order name: CT Stone Protocol; Complete Time: 15:55 pm1 01/13 17:30 Order name: Urine Dipstick--Ancillary (enter results); Complete Time: 17:42 01/13 17:42 Order name: Urine Culture [facility] 01/13 14:47 Order name: IV Saline Lock; Complete Time: 15:19 01/13 14:47 Order name: Labs collected and sent; Complete Time: 15:19 Administered Medications: 15:18 Drug: Benadryl 25 mg Route: IVP; Site: right antecubital; aj 17:08 Follow up: Response: No adverse reaction; Marked relief of symptoms aj 15:19 Drug: NS 0.9% 1000 ml Route: IV; Rate: 1000 ml; Site: right antecubital; aj 18:09 Follow up: Response: No adverse reaction; IV Status: Completed infusion; IV Intake: aj 1000ml 15:19 Drug: Zofran 4 mg Route: IVP; Site: right antecubital; aj 17:08 Follow up: Response: Nausea is decreased aj 15:19 Drug: morphine 4 mg Route: IVP; Site: right antecubital; aj 17:08 Follow up: Response: Pain is decreased aj 17:59 Drug: LevaQUIN 250 mg Route: PO; aj 17:59 Follow up: Response: Medication administered at discharge. aj Disposition: 01/13/19 16:51 Discharged to Home. Impression: Urinary tract infection, site not specified, Chronic kidney disease, unspecified. - Condition is Stable. - Discharge Instructions: Urinary Tract Infection, Adult, Chronic Kidney Disease, Adult, [id number]. - Prescriptions for Tylenol- Codeine #3 300-30 mg Oral Tablet - take 2 tablets by ORAL route every 6 hours As needed; 20 tablet. Zofran 4 mg Oral Tablet - take 1 tablet by ORAL route every 12 hours As needed; 20 tablet. Levaquin 250 mg Oral Tablet - take 1 tablet by ORAL route every other day for 10 days; 5 tablet. - Medication Reconciliation Form, Thank You Letter, Antibiotic Education, Prescription Opioid Use form. - Follow up: Emergency Department; When: As needed; Reason: Worsening of condition. Follow up: Noe Taylor MD; When: 2 - 3 days; Reason: Recheck today's complaints, Continuance of care, Re-evaluation by your physician. - Problem is new. - Symptoms have improved. Addendum: 01/15/2019 07:54 Co-signature as Attending Physician, Dre Rubin MD. g s Signatures: Dispatcher [employer] EDMS Lizbeth Van RN RN Kyle Cardenas, ANTONINA SENIOR ACCOUNTANT CPA pm1 Emilee Jackson RN RN hb Starr, Gregory, MD MD Corrections: (The following items were deleted from the chart) 01/13 17:30 16:51 01/13/2019 16:51 Discharged to Home. Impression: Radiculopathy, lumbar region; pm1 Chronic kidney disease, unspecified. Condition is Stable. Forms are Medication Reconciliation Form, Thank You Letter, Antibiotic Education, Prescription Opioid Use. Follow up: Emergency Department; When: As needed; Reason: Worsening of condition. Follow up: Noe Taylor; When: 2 - 3 days; Reason: Recheck today's complaints, Continuance of care, Re-evaluation by your physician. Problem is new. Symptoms have improved. pm1 17:43 17:30 01/13/2019 16:51 Discharged to Home. Impression: Radiculopathy, lumbar region; pm1 Chronic kidney disease, unspecified; Urinary tract infection, site not specified. Condition is Stable. Discharge Instructions: Lumbosacral Radiculopathy, Chronic Kidney Disease, Adult, [id number]. Prescriptions for Tylenol-Codeine #3 300-30 mg Oral Tablet - take 2 tablets by ORAL route every 6 hours As needed; 20 tablet, Zofran 4 mg Oral Tablet - take 1 tablet by ORAL route every 12 hours As needed; 20 tablet. and Forms are Medication Reconciliation Form, Thank You Letter, Antibiotic Education, Prescription Opioid Use. Follow up: Emergency Department; When: As needed; Reason: Worsening of condition. Follow up: Noe Taylor; When: 2 - 3 days; Reason: Recheck today's complaints, Continuance of care, Re-evaluation by your physician. Problem is new. Symptoms have improved. pm1 18:09 17:43 01/13/2019 16:51 Discharged to Home. Impression: Urinary tract infection, site aj not specified; Chronic kidney disease, unspecified. Condition is Stable. Discharge Instructions: Chronic Kidney Disease, Adult, [id number], Urinary Tract Infection, Adult. Prescriptions for Tylenol-Codeine #3 300-30 mg Oral Tablet - take 2 tablets by ORAL route every 6 hours As needed; 20 tablet, Zofran 4 mg Oral Tablet - take 1 tablet by ORAL route every 12 hours As needed; 20 tablet, Levaquin 250 mg Oral Tablet - take 1 tablet by ORAL route every other day for 10 days; 5 tablet. and Forms are Medication Reconciliation Form, Thank You Letter, Antibiotic Education, Prescription Opioid Use. Follow up: Emergency Department; When: As needed; Reason: Worsening of condition. Follow up: Noe Taylor; When: 2 - 3 days; Reason: Recheck today's complaints, Continuance of care, Re-evaluation by your physician. Problem is new. Symptoms have improved. pm1
--- NOTE | 2019-01-13 16:52 | ER ---
Nurse's Notes [facility] Name: Tracy Butt Age: 68 yrs Sex: Female : 1950 Arrival Date: 01/13/2019 Time: 14:29 Bed 7 Private MD: Noe Taylor Diagnosis: Chronic kidney disease, unspecified;Urinary tract infection, site not specified Presentation: 01/13 14:33 Presenting complaint: Mid back pain, nausea, and right leg pain x 2 days. Pt reports hb she is on the kidney transplant list, concerned her labs are up. Transition of care: patient was not received from another setting of care. Onset of symptoms was January 13, 2019. Risk Assessment: Do you want to hurt yourself or someone else? Patient reports no desire to harm self or others. Care prior to arrival: None. 14:33 Method Of Arrival: Ambulatory hb 14:33 Acuity: ANTHONY 3 hb Historical: - Allergies: 14:36 CHLORAMPHENICOL; hb 14:36 PENICILLINS; hb - Home Meds: 14:36 atorvastatin 20 mg Oral tab 1 tab once daily [Active]; brimonidine 0.2 % ophthalmic hb drop 1 drop every 8 hours [Active]; calcium acetate miscellaneous powd [Active]; Cardura 8 mg Oral tab 1 tab once daily [Active]; carvedilol 25 mg Oral tab 1 tab 2 times per day [Active]; ciprofloxacin tablet 500 mg 1 tab by mouth two times a day [Active]; furosemide 20 mg Oral tab 1 tab 2 times per day [Active]; glimepiride 2 mg Oral tab 1 tab once daily [Active]; hydralazine 100 mg Oral tab 1 tab 2 times per day [Active]; hydrocortisone 2.5 % Topical crea once daily [Active]; Integra F 125-1-40-3 mg Oral cap 1 cap once daily [Active]; Iron CR 65 mg Oral twice a day [Active]; ketorolac 0.4 % ophthalmic drop [Active]; losartan 50 mg Oral tab 1 tab once daily [Active]; darbepoetin bella in polysorbate injection [Active]; vitamin A 8,000 unit Oral cap 1 cap once daily [Active]; Pepcid Oral [Active]; - PMHx: 14:36 Hypertension; Diabetes - NIDDM; kidney disease; hb - PSHx: 14:36 Hysterectomy; left knee replacement; back sx diane placed; hb - Immunization history:: Adult Immunizations up to date. - Social history:: Smoking status: Patient/guardian denies using tobacco. - Ebola Screening: : No symptoms or risks identified at this time. Screenin:19 Abuse screen: Denies threats or abuse. Denies injuries from another. Nutritional aj screening: No deficits noted. Tuberculosis screening: No symptoms or risk factors identified. Fall Risk None identified. Assessment: 15:19 General: Appears in no apparent distress. comfortable, Behavior is calm, cooperative, aj appropriate for age. Pain: Complains of pain in back and buttocks. Neuro: Level of Consciousness is awake, alert, obeys commands, Oriented to person, place, time, situation, Appropriate for age. Respiratory: Airway is patent Respiratory effort is even, unlabored, Respiratory pattern is regular, symmetrical. GI: Abdomen is non-distended, Reports nausea. : Reports pain in bilateral flank(s), in lower back. Derm: Skin is intact, is healthy with good turgor, Skin is pink, warm \T\ dry. normal. 15:32 Reassessment: Patient began itching after morphine administration. Provider notified. aj Benadryl 25 mg IVP ordered and administered. Patient reports itching sensation has subsided. 17:28 Reassessment: Discharge pending urine micro. aj Vital Signs: 14:34 BP 144 / 66; Pulse 70; Resp 16; Temp 98.3; Pulse Ox 98% on R/A; Weight 68.04 kg; Height hb 5 ft. 4 in. (162.56 cm); Pain 8/10; 15:32 BP 167 / 74; Pulse 76; Resp 18; Pulse Ox 100% on R/A; aj 17:04 BP 166 / 71; Pulse 76; Resp 18; Pulse Ox 99% on R/A; aj 14:34 Body Mass Index 25.75 (68.04 kg, 162.56 cm) hb ED Course: 14:29 Patient arrived in ED. ag5 14:29 Noe Taylor MD is Private Physician. ag5 14:34 Triage completed. hb 14:34 Arm band placed on. hb 14:44 Lizbeth Van, PARVIN is Primary Nurse. aj 14:55 Kyle Cohen NP is PHCP. pm1 14:55 Dre Rubin MD is Attending Physician. pm1 15:[address] nj 15:19 Patient has correct armband on for positive identification. Bed in low position. Call aj light in reach. Side rails up X 1. 15:19 Inserted saline lock: 20 gauge in right antecubital area, using aseptic technique. aj Blood collected. 15:26 CT Stone Protocol In Process Unspecified. EDMS 16:47 Noe Taylor MD is Referral Physician. pm1 18:09 No provider procedures requiring assistance completed. IV discontinued, intact, aj bleeding controlled, No redness/swelling at site. Pressure dressing applied. Administered Medications: 15:18 Drug: Benadryl 25 mg Route: IVP; Site: right antecubital; aj 17:08 Follow up: Response: No adverse reaction; Marked relief of symptoms aj 15:19 Drug: NS 0.9% 1000 ml Route: IV; Rate: 1000 ml; Site: right antecubital; aj 18:09 Follow up: Response: No adverse reaction; IV Status: Completed infusion; IV Intake: aj 1000ml 15:19 Drug: Zofran 4 mg Route: IVP; Site: right antecubital; aj 17:08 Follow up: Response: Nausea is decreased aj 15:19 Drug: morphine 4 mg Route: IVP; Site: right antecubital; aj 17:08 Follow up: Response: Pain is decreased aj 17:59 Drug: LevaQUIN 250 mg Route: PO; aj 17:59 Follow up: Response: Medication administered at discharge. aj Intake: 18:09 IV: 1000ml; Total: 1000ml. aj Outcome: 16:51 Discharge ordered by . pm1 18:09 Discharged to home ambulatory, with family. aj 18:09 Condition: good 18:09 Discharge instructions given to patient, Instructed on discharge instructions, follow up and referral plans. medication usage, Demonstrated understanding of instructions, follow-up care, medications, Prescriptions given X 3. 18:09 Patient left the ED. aj Addendum: 01/16/2019 08:05 Addendum: Culture Results: Positive urine culture. No further action required. Bacteria h b sensitive to prescribed antibiotic. Signatures: Dispatcher [employer] EDMO Lizbeth Van RN RN aj Marinas, Patrick, HIP HOP DANCE INSTRUCTOR HIP HOP DANCE INSTRUCTOR pm1 Emilee Jackson, RN RN Luis Enrique Roy, Alina ag5
[2019-01-13 17:39] LABS: Urine Blood NEGATIVE (NEG); Urine Glucose NEGATIVE (NEG); Urine Protein 2+ (NEG); Urine Specific Gravity 1.005 (1.005-1.030)
[2019-01-13 17:40] LABS: Urine RBC NONE SEEN /HPF (NONE SEEN)
[2019-01-13 17:41] LABS: Urine Bacteria >50 /HPF (<20); Urine Culture Reflex Order REFLEXED
[2019-01-13] MEDS ORDERED: levoFLOXacin 250 MG TAB ONE (18:14)
== END 2019-01-13 18:09 | disposition home or self-care (01) ==
LOC: ER 14:26
DX: N39.0 Urinary tract infection, site not specified (principal); E11.22 Type 2 diabetes mellitus with diabetic chronic kidney disease; I12.9 Hypertensive chronic kidney disease with stage 1 through stage 4 chronic kidney disease, or unspecified chronic kidney disease; N18.9 Chronic kidney disease, unspecified; I10 Essential (primary) hypertension; E11.9 Type 2 diabetes mellitus without complications; Z88.0 Allergy status to penicillin
CPT/HCPCS: 96361; 87088; 85025; 87086; 80048; 36415; 80076; 87077 ×2; 87186 ×2; 83690; 76377; 74176; 96375; 96374; 99284; J7030; J2405; 81003; 81015

== ENCOUNTER 2019-10-17 14:04 | Emergency (ER) | payer OTHER ==
--- OUTSIDE RECORDS SUMMARY | 2019-10-17 14:06 | XMS REPORT ---
:1950 [address] [facility] t Address [address] [place] [address] Dr. Pope [address] [place] [id number] Care Team Providers Name Role Phone QI BUSBY Unavailable Unavailable Problems This patient has no known problems. Allergies, Adverse Reactions, Alerts This patient has no known allergies or adverse reactions. Medications This patient has no known medications. Results Test Description Test Time Test Comments Text Results Atomic Results Result Comments POCT-GLUCOSE METER 2018-04-12 14:18:00 Test Item Value Reference Range Comments POC-GLUCOSE METER (REHAN) (test 190 mg/dL 70-[address] [facility] 76[address] KAMI code = 1538) [facility] [id number]
[2019-10-17 15:07] LABS: Basophils % 0.7 % (0-1.3); Lymphocytes % 17.8 % (15.3-44.8); MPV 8.7 fL (7.6-11.3); RBC Red Blood Cell Count 2.79 M/uL (3.86-4.86)
[2019-10-17 15:28] LABS: BUN Blood Urea Nitrogen 69 mg/dL (7-18); Bicarbonate 18 mmol/L (21-32); Glucose Level 159 mg/dL (74-106); Sodium Level 144 mmol/L (136-145); Troponin (Emerg Dept Use Only) < 0.02 ng/mL (0.0-0.045)
--- NOTE | 2019-10-17 15:37 | RAD REPORT ---
EXAM DESCRIPTION: Michelle Single View10/17/2019 3:28 pm CLINICAL HISTORY: sob COMPARISON: none FINDINGS: The lungs appear clear of acute infiltrate. The heart is normal size IMPRESSION: No acute abnormalities displayed
--- NOTE | 2019-10-17 16:59 | ER ---
Nurse's Notes [facility] Name: Tracy Butt Age: 69 yrs Sex: Female : 1950 Arrival Date: 10/17/2019 Time: 14:08 Bed 8 Private MD: Noe Taylor Diagnosis: Anemia, unspecified;Anemia in chronic kidney disease;Chronic kidney disease (CKD) Presentation: 10/16 14:29 Chief complaint: Patient states: " I have a hx of chronic kidney failure and anemia and ph I see a senior payroll specialist, on my Hgb was 7.5 and they said if I started feeling SOB or anything to come here." Pt reports SOB, fatigue and dizziness. Coronavirus screen: Patient denies a cough. Patient reports shortness of breath or difficulty breathing. Patient denies measured and/or subjective temperature greater than 100.4F prior to today's visit. Patient denies travel on a cruise ship or to a country the [facility] currently lists as an affected area. Patient denies contact with known and/or suspected case of COVID-19. Ebola Screen: No symptoms or risks identified at this time. Initial Sepsis Screen: Does the patient meet any 2 criteria? No. Patient's initial sepsis screen is negative. Does the patient have a suspected source of infection? No. Patient's initial sepsis screen is negative. Risk Assessment: Do you want to hurt yourself or someone else? Patient reports no desire to harm self or others. Onset of symptoms was October 17, 2019. 14:29 Method Of Arrival: Wheelchair ph 14:29 Acuity: ANTHONY 3 ph Triage Assessment: 15:06 General: Behavior is cooperative. Historical: - Allergies: 14:36 CHLORAMPHENICOL; ph 14:36 PENICILLINS; ph - Home Meds: 14:36 Procrit Inj [Active]; atorvastatin 20 mg Oral tab 1 tab once daily [Active]; carvedilol ph 25 mg Oral tab 1 tab 2 times per day [Active]; doxazosin 2 mg oral tab 1 tab twice a day [Active]; hydralazine 100 mg Oral tab 1 tab 3 times per day [Active]; furosemide 20 mg Oral tab 1 tab once daily [Active]; glimepiride 2 mg Oral tab 1 tab twice a day [Active]; furosemide 40 mg Oral tab 1 tab once daily [Active]; - PMHx: 14:36 Diabetes - NIDDM; Hypertension; kidney disease; ph - PSHx: 14:36 Hysterectomy; left knee replacement; back sx diane placed; ph - Immunization history:: Adult Immunizations unknown. - Social history:: Smoking status: Patient denies any tobacco usage or history of. - Family history:: not pertinent. - Hospitalizations: : No recent hospitalization is reported. Screenin:06 Abuse screen: Denies threats or abuse. Nutritional screening: No deficits noted. Tuberculosis screening: No symptoms or risk factors identified. Fall Risk None identified. Assessment: 15:02 General: Appears in no apparent distress. Pain: Denies pain. Neuro: Level of ah Consciousness is awake, alert, obeys commands, Oriented to person, place, time, situation, Railway Station Manager are equal bilaterally Speech is normal, Facial symmetry appears normal. Cardiovascular: Heart tones S1 S2 present Capillary refill < 3 seconds Patient's skin is warm and dry. Pulses are palpable in right radial artery, right dorsalis pedis artery, left radial artery and left dorsalis pedis artery Rhythm is sinus rhythm. Respiratory: Reports shortness of breath at rest Airway is patent Respiratory effort is even, unlabored, Respiratory pattern is regular, symmetrical, Breath sounds are clear bilaterally. GI: Bowel sounds present X 4 quads. Reports nausea. : No signs and/or symptoms were reported regarding the genitourinary system. EENT: No signs and/or symptoms were reported regarding the EENT system. Derm: No signs and/or symptoms reported regarding the dermatologic system. Skin is intact, Skin is dry, Skin temperature is warm. Musculoskeletal: No signs and/or symptoms reported regarding the musculoskeletal system. 16:13 Reassessment: Patient appears in no apparent distress at this time. Patient and/or ah family updated on plan of care and expected duration. Pain level reassessed. Patient is alert, oriented x 3, equal unlabored respirations, skin warm/dry/pink. no needs voiced at this time. 17:05 Reassessment: MD ordered NS bolus, IV started at this time and bolus hung. Informed pt ah that she will be discharged after her fluids. Pt voiced understanding. No other needs voiced at this time. 18:15 Reassessment: Discharge instructions given to Pt at this time. Pt given education for ah bowers virus testing for daughter. Pt states that she didn't feel like she needed to be tested anyway. I informed her that her daughter had called and was concerned so information sent home. pt thanked me for all of our work we had done today. Pt voiced understanding of her discharge instructions. Vital Signs: 14:29 BP 134 / 52; Pulse 61; Resp 18; Temp 98.6; Pulse Ox 98% on R/A; Weight 68.04 kg; Height ph 5 ft. 4 in. (162.56 cm); 16:14 BP 138 / 56; Pulse 64; Resp 16; Pulse Ox 98% ; ah 17:15 BP 159 / 56; Pulse 64; Resp 23; Pulse Ox 100% ; ah 18:20 BP 167 / 66; Pulse 67; Resp 19; Pulse Ox 99% ; ah 14:29 Body Mass Index 25.75 (68.04 kg, 162.56 cm) ph ED Course: 14:08 Patient arrived in ED. mr 14:08 Noe Taylor MD is Private Physician. mr 14:23 Sven Osuna MD is Attending Physician. rn 14:31 Triage completed. ph 14:36 Arm band placed on Patient placed in an exam room, on a stretcher. ph 14:41 Elsi Montoya RN is Primary Nurse. jl7 14:59 Initial lab(s) drawn, by me, sent to lab. Missed attempt(s): 20 gauge in left forearm. jl7 Bleeding controlled, band aid applied, catheter tip intact. 15:02 Adri Burris, RN is Primary Nurse. ah 15:06 Patient has correct armband on for positive identification. Placed in gown. Bed in low ah position. Call light in reach. Side rails up X2. 15:29 XRAY Chest (1 view) In Process Unspecified. EDMS 16:57 Noe Taylor MD is Referral Physician. rn 17:20 Inserted saline lock: 22 gauge in right antecubital area, using aseptic technique. ah 18:27 No provider procedures requiring assistance completed. IV discontinued, intact, ah bleeding controlled, No redness/swelling at site. Pressure dressing applied. Administered Medications: 17:20 Drug: NS 0.9% 500 ml Route: IV; Rate: bolus; Site: right antecubital; ah 17:55 Follow up: Response: No adverse reaction; IV Status: Completed infusion ah Outcome: 16:58 Discharge ordered by . rn 18:27 Discharged to home via wheelchair. 18:27 Condition: good 18:27 Discharge instructions given to patient, Instructed on discharge instructions, follow up and referral plans. Demonstrated understanding of instructions, follow-up care. 18:27 Patient left the ED. Signatures: Dispatcher [employer] REMI BakerVenus Roman, MD MD rn Hall, Patricia, RN RN Elsi Montoya RN RN [facility] Adri Burris RN RN
--- NOTE | 2019-10-17 16:59 | EDPHYS ---
Physician Documentation [facility] Name: Tracy Butt Age: 69 yrs Sex: Female : 1950 Arrival Date: 10/17/2019 Time: 14:08 Bed 8 Private MD: Noe Taylor ED Physician Sven Osuna HPI: 10/16 14:53 This 69 yrs old Female presents to ER via Wheelchair with complaints of rn Dizziness, Shortness Of Breath. 14:53 The patient presents with dizziness, generalized weakness, lightheadedness. rn 14:54 Onset: The symptoms/episode began/occurred 4 day(s) ago. Modifying factors: The rn symptoms are alleviated by nothing, the symptoms are aggravated by nothing. Severity of symptoms: At their worst the symptoms were moderate in the emergency department the symptoms are unchanged. The patient has experienced similar episodes in the past. Reports chronic anemia, thought to be 2/2 chronic kidney disease, had blood draw , hemoglobin 7.5, given shot of Procrit, told to return this for another shot of Procrit. No blood or dark stool. Reports has only required blood transfusion once but a long time ago. No chest pain. No fever/cough. Does not feel ill. . Historical: - Allergies: 14:36 CHLORAMPHENICOL; ph 14:36 PENICILLINS; ph - Home Meds: 14:36 Procrit Inj [Active]; atorvastatin 20 mg Oral tab 1 tab once daily [Active]; carvedilol ph 25 mg Oral tab 1 tab 2 times per day [Active]; doxazosin 2 mg oral tab 1 tab twice a day [Active]; hydralazine 100 mg Oral tab 1 tab 3 times per day [Active]; furosemide 20 mg Oral tab 1 tab once daily [Active]; glimepiride 2 mg Oral tab 1 tab twice a day [Active]; furosemide 40 mg Oral tab 1 tab once daily [Active]; - PMHx: 14:36 Diabetes - NIDDM; Hypertension; kidney disease; ph - PSHx: 14:36 Hysterectomy; left knee replacement; back sx diane placed; ph - Immunization history:: Adult Immunizations unknown. - Social history:: Smoking status: Patient denies any tobacco usage or history of. - Family history:: not pertinent. - Hospitalizations: : No recent hospitalization is reported. ROS: 14:54 Constitutional: Negative for fever, chills, and weight loss, Eyes: Negative for injury, rn pain, redness, and discharge, Neck: Negative for injury, pain, and swelling, Cardiovascular: Negative for chest pain, palpitations, and edema, Respiratory: Negative for cough, wheezing, and pleuritic chest pain, Abdomen/GI: Negative for abdominal pain, nausea, vomiting, diarrhea, and constipation, MS/Extremity: Negative for injury and deformity, Skin: Negative for injury, rash, and discoloration, Neuro: Negative for headache, numbness, tingling, and seizure. Exam: 14:54 Constitutional: This is a well developed, well nourished patient who is awake, alert, rn and in no acute distress. Head/Face: Normocephalic, atraumatic. Eyes: Pale conjunctivae Cardiovascular: Regular rate and rhythm. No pulse deficits. Respiratory: No increased work of breathing, no retractions or nasal flaring. Abdomen/GI: soft, non-tender MS/ Extremity: Pulses equal, no cyanosis. Neurovascular intact. Full, normal range of motion. Equal circumference. Neuro: Awake and alert, GCS 15, oriented to person, place, time, and situation. Cranial nerves II-XII grossly intact. Motor strength 5/5 in all extremities. Sensory grossly intact. Cerebellar exam normal. Normal gait. 15:20 ECG was reviewed by the Attending Physician. rn Vital Signs: 14:29 BP 134 / 52; Pulse 61; Resp 18; Temp 98.6; Pulse Ox 98% on R/A; Weight 68.04 kg; Height ph 5 ft. 4 in. (162.56 cm); 16:14 BP 138 / 56; Pulse 64; Resp 16; Pulse Ox 98% ; ah 17:15 BP 159 / 56; Pulse 64; Resp 23; Pulse Ox 100% ; ah 18:20 BP 167 / 66; Pulse 67; Resp 19; Pulse Ox 99% ; ah 14:29 Body Mass Index 25.75 (68.04 kg, 162.56 cm) ph MDM: 14:23 Patient medically screened. rn 16:54 Differential diagnosis: hypovolemia, idiopathic dizziness, near-syncope, anemia of glazier metal furniture disease. Data reviewed: vital signs, nurses notes, lab test result(s), EKG, radiologic studies, and as a result, I will discharge patient. Counseling: I had a detailed discussion with the patient and/or guardian regarding: the historical points, exam findings, and any diagnostic results supporting the discharge/admit diagnosis, lab results, radiology results, the need for outpatient follow up, to return to the emergency department if symptoms worsen or persist or if there are any questions or concerns that arise at home. Special discussion: I discussed with the patient/guardian in detail that at this point there is no indication for admission to the hospital. It is understood, however, that if the symptoms persist or worsen the patient needs to return immediately for re-evaluation. 16:56 ED course: Hemoglobin up to 9.0, renal function at baseline, will dc home, no need for rn transfusion, will f/u tomorrow for repeat blood draw and probable repeat procrit . Stable vitals. Normal cardiac w/u. . 17:46 ED course: Pt states she feels like this is her anemia, has dealt with this for years, rn no fever/cough/hemoptysis/diarrhea/rash/chest pain. No oxygen requirement or finding on CXR to indicate infectious etiology or need for emergent COVID-19 testing. . 10/16 14:44 Order name: CBC with Diff rn 10/16 14:44 Order name: Basic Metabolic Panel; Complete Time: 16:54 rn 10/16 14:44 Order name: EKG; Complete Time: 14:45 rn 10/16 14:44 Order name: XRAY Chest (1 view); Complete Time: 15:39 rn 10/16 14:45 Order name: Troponin (emerg Dept Use Only); Complete Time: 16:54 rn 10/16 14:44 Order name: EKG - Nurse/Tech; Complete Time: 15:10 rn EC:20 Rate is 61 beats/min. Rhythm is regular. QRS [place] is Normal. NV interval is normal. QRS rn interval is normal. QT interval is normal. No Q waves. T waves are Normal. No ST changes noted. Clinical impression: Normal ECG. Interpreted by me. Reviewed by me. Administered Medications: 17:20 Drug: NS 0.9% 500 ml Route: IV; Rate: bolus; Site: right antecubital; 17:55 Follow up: Response: No adverse reaction; IV Status: Completed infusion Disposition: 10/17/19 16:58 Discharged to Home. Impression: Anemia, unspecified, Anemia in chronic kidney disease, Chronic kidney disease (CKD). - Condition is Stable. - Discharge Instructions: Anemia, Nonspecific, Dizziness, Chronic Kidney Disease, Adult. - Medication Reconciliation Form, Thank You Letter, Antibiotic Education, Prescription Opioid Use form. - Follow up: Noe Taylor MD; When: 1 - 2 days; Reason: Recheck today's complaints, Re-evaluation by your physician. - Problem is chronic. - Symptoms have improved. Signatures: Dispatcher [employer] EDMA Sven Osuna MD MD rn Hall, Patricia, RN RN Adri Burris RN RN Corrections: (The following items were deleted from the chart) 18:27 16:58 10/17/2019 16:58 Discharged to Home. Impression: Anemia, unspecified; Anemia in ah chronic kidney disease; Chronic kidney disease (CKD). Condition is Stable. Forms are Medication Reconciliation Form, Thank You Letter, Antibiotic Education, Prescription Opioid Use. Follow up: Noe Taylor; When: 1 - 2 days; Reason: Recheck today's complaints, Re-evaluation by your physician. Problem is chronic. Symptoms have improved. rn
[2019-10-17] MEDS ORDERED: NA CHLORIDE 0.9% 500 ML ONE (17:14)
[2019-10-17 18:34] VITALS: TEMP 98.6
[2019-10-17 18:38] VITALS: BP 167/66; O2SAT 99
--- NOTE | 2019-10-18 07:21 | EKG ---
Test Date: 2019-10-17 Test Time: 15:12:49 School Community Relations Coordinator: Sandeep Burris MEASUREMENT RESULTS: Intervals: Rate: 61 HI: 148 QRSD: 90 QT: 428 QTc: 430 [place]: P: 62 HI: 148 QRS: 21 T: 32 INTERPRETIVE STATEMENTS: Normal sinus rhythm Normal ECG Compared to ECG 01/16/2018 11:41:35 No significant changes Electronically Signed On 10-18-19 07:20:57 CDT by Martínez Mccollum
== END 2019-10-17 18:27 | disposition home or self-care (01) ==
LOC: ER 14:04
DX: E11.22 Type 2 diabetes mellitus with diabetic chronic kidney disease (principal); I12.9 Hypertensive chronic kidney disease with stage 1 through stage 4 chronic kidney disease, or unspecified chronic kidney disease; N18.9 Chronic kidney disease, unspecified; D63.1 Anemia in chronic kidney disease; Z88.0 Allergy status to penicillin; Z88.8 Allergy status to other drugs, medicaments and biological substances
CPT/HCPCS: 93005; 85025; 80048; 36415; 84484; 71045; J7040; 96360; 99284

== ENCOUNTER 2020-07-30 14:10 | Inpatient (IN) | payer OTHER ==
--- OUTSIDE RECORDS SUMMARY | 2020-07-30 14:47 | XMS REPORT | Clinical Summary ---
:1950 Author Organization [facility] Address [address] [place] [address] Care Team Providers Name Role Phone Asked, No Pcp Primary Care Provider Unavailable Allergies Active Allergy Reactions Severity Noted Date Comments Chloramphenicol Anaphylaxis High 04/26/2018 "closed my t hroat, terrible rash" Penicillins Anaphylaxis High 04/26/2018 "closed my thro at, terrible rash" Medications Medication Sig Dispensed Refills Start Date End Date Status glimepiride (AMARYL) Take 2 mg by mouth 0 Active 2 MG tablet 2 (two) times a day. carvedilol (COREG) 25 Take 25 mg by mouth 0 Active MG tablet 2 (two) times a day with meals. hydrALAZINE Take 100 mg by 0 Act ingrid (APRESOLINE) 100 MG mouth 2 (two) times tablet a day. losartan (COZAAR) 50 Take 50 mg by mouth 0 Active MG tablet daily. atorvastatin Take 20 mg by mouth 0 Active (LIPITOR) 20 MG daily. Default OP tablet ins calcium acetate Take 667 mg by 0 Active (PHOSLO) 667 mg mouth 3 (three) capsule times a day with meals. cholecalciferol, Take 1 tablet by 0 Active [...] mg by mouth 0 Active mg tablet as needed. doxazosin (CARDURA) 2 Take 2 mg by mouth 0 Active MG tablet nightly. linaGLIPtin Take 5 mg by mouth 0 Active (TRADJENTA) 5 mg daily with tablet breakfast. epoetin bella (PROCRIT Inject 30,000 Units 0 Active INJ) as directed. Active Problems Problem Noted Date CKD stage 4 due to type 2 diabetes mellitus 12/16/2018 Elevated antibody levels 12/16/2018 Hypertension 08/11/2018 DM2 (diabetes mellitus, type 2) 08/11/2018 Encounters Date Type Specialty Care Team Description 07/30/2020 Telephone Transplant Emilee Nichols RN tranpslan t update 09/27/2019 Documentation Transplant Haley Cifuentes LMSW after 07/30/2019 Surgical History Surgery Date Site/Laterality Comments HYSTERECTOMY REPLACEMENT TOTAL KNEE Left BACK SURGERY KNEE SURGERY Right laproscopic FOOT TENDON SURGERY Left CATARACT EXTRACTION Bilateral EYE SURGERY Bilateral Medical History Medical History Date Comments CKD (chronic kidney disease) stage 3, GFR 30-59 ml/min Hypertension Hyperlipidemia DM2 (diabetes mellitus, type 2) (HCC) Anemia history of 2x blood transfusions Nerve damage both legs (possible due to back surgery) Ambulates with cane Apnea cpap GERD (gastroesophageal reflux disease) Colon polyps removed Pancreatic cyst multiple (largest 9- 8mm) per patient Chronic kidney disease Peripheral neuropathy Skin cancer 11/2012 basal cell carcinoma - arm and chest Edema Family History Medical History Relation Name Comments Cancer Father Cancer Mother Diabetes Mother Heart disease Mother Hypertension Mother Cancer Sister Relation Name Status Comments Father Mother Sister Social History Tobacco Use Types Packs/Day Years Used Date Never Smoker Smokeless Tobacco: Never Used Sex Assigned at Date Recorded Not on file Last Filed Vital Signs Not on file Plan of Treatment Health Maintenance Due Date Last Done Comments DIABETES: RETINAL EYE EXAM 1959 DIABETIC FOOT EXAM 1959 COVID-19 VACCINE (1 of 2) 1965 BREAST CANCER SCREENING 1999 COLONOSCOPY SCREENING 1999 SHINGLES VACCINES (#1) 1999 INFLUENZA VACCINE 01/28/2020 04/11/2019, 09/02/2018 65+ PNEUMOCOCCAL VACCINE Completed 11/11/2017 Results Not on fileafter 07/30/2019 Insurance Payer Benefit Plan / Subscriber ID Effective Phone Address T ype Group Dates MEDICARE MEDICARE PART A [id number] 2014-Pre [place] Medicare AND B sent [facility] [id number] 2014-Pre Commercial sent Tracy Butt Transplant Self 1950 [phone] [facility] (Home) [place] [id number] Advance Directives For more information, please contact: [phone] Type Date Recorded 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
--- OUTSIDE RECORDS SUMMARY | 2020-07-30 14:47 | XMS REPORT | Continuity of Care Document ---
:1950 Author Organization [employer] Information Our Security Team Care Team Providers Name Role Phone [facility] [employer] Information Our Security Team Unavailable Un available Problems Problem Status Onset Classification Date Comments Sourc e Date Reported ANEMIA Active [facility] 020 [place] N18.3 - "CHRONIC Active [facility] KIDNEY DISEASE, STAGE" 016 [place] ARANESP 60 MCG, Active CPT-16262, D63.1 016 [place] the[place] DENSE BREAST Active 016 [place] SCREENING Active 016 [place] SCREENING MAMMO Active 016 [facility] CPT 93964, ANEMIA IN Active CKD D63.1 016 [place] Peripheral vascular Active Diagnosis 04/10/2016 Chan disease, unspecified MD Dandy, PA Bruit Active Problem 04/10/2016 Chan Dorman MD, PA Dyspnea, unspecified Active Diagnosis 04/10/2016 Chan Dorman MD, PA Abnormal ECG Active Problem 04/10/2016 Chan Dorman MD, PA Shortness of breath Active Diagnosis 04/10/2016 Chan Dorman MD, PA Screening for Active Diagnosis 04/10/2016 Chan cardiovascular Tad n, disorders , PA 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, failure , PA Pure Active Diagnosis 04/10/2016 Chan hypercholesterolemia MD Dandy, PA Anemia (disorder) Resolved Problem 11/24/2019 H Rusty Red [facility] Anemia of chronic Active Problem 11/24/2019 [facility] renal failure Rusty Martinez nd (disorder) [facility] Chronic renal Resolved Problem 11/24/2019 impairment (disorder) Rusty Red H [facility] Diabetes mellitus type Resolved Problem 11/24/2019 2 (disorder) Rusty Alxeander H [facility] Hypertensive disorder, Resolved Problem 11/24/2019 systemic arterial Pe Rusty ge (disorder) [facility] Retinopathy (disorder) Resolved Problem 11/24/2019 Rusty Red [facility] R06.02 Active [facility] SHORTNESS OF BREATH Active [facility] ANEMIA IN CHRONIC Active KIDNEY DISEASE [place] ENCNTR SCREEN Active MAMMOGRAM FOR [place] MALIGNANT NE INCONCLUSIVE MAMMOGRAM Active [facility] ANEMIA, UNSPECIFIED Active [facility] Medications Medication Details Route Status Patient Ordering Order Source Instructions Provider Date Epoetin [place] 2,000 unit Active 2000 UNT/ML = 1 ml, 2019 [place] Injectable SUB-Q, 5X Solution Day, # 1 [Procrit] ml, 0 Refill(s) Hydralazine 100 mg = 1 Active Hydrochloride tab, PO, 2019 [place] 100 MG Oral BID, # 60 Tablet tab, 0 Refill(s) doxazosin 2 mg 2 mg = 1 Active oral tablet tab, PO, 2019 [place] Daily, # 30 tab, 0 Refill(s) Brimonidine 1 drp, Active tartrate 2 MG/ML OPTH, Q8H, 2019 [place] Ophthalmic # 5 mL, 0 Solution Refill(s) Ketorolac 1 drp, BOTH Active Tromethamine 5 EYES, QID, 2019 [place] MG/ML Ophthalmic PRN Solution Itching, # [Acular] 5 mL, 0 Refill(s) HydrALAZINE HCl 1 tablet Orally Active 25 MG Orally Al-Azzeh 02/14/ N awar three times a 2015 Tayyan, day (tid) JUAN GUY Isosorbide 1 tablet Orally Active 10 mg Orally Al-Azzeh 02/14/ Chan Dinitrate three times a 2015, day (tid) JUAN GUY Carvedilol as directed Orally Active 6.25 MG Al-Azzeh 05/ Chan Orally twice 2015 [place], a day (bid) JUAN GUY Carvedilol 1 tablet Orally No Longer 3.125 MG Al-Azzeh 05/05/ Chan Active Orally twice 2015 [place], a day (bid) JUAN GUY Carvedilol as directed Orally Active 12.5 MG Al-Azzeh 05/05/ Chan Orally twice 2015 [place], a day (bid) JUAN GUY Notes: No Longer (Same as: Active 2015 J[place]) Non-formula ry Aranesp Notes: No Longer (Same as: Active 2015 [facility]) Non-formula ry Amlodipine 1 tablet Orally No Longer 2.5 MG Orally Al-Azzeh w ar Besylate Active Once a day 2015 MD Dandy, JUAN [place] Notes: No Longer (Same as: Active 2015 [facility]) Non-formula ry Aranesp Notes: Inactive (Same as: 2015 [facility]) Non-formula ry atorvastatin PO, Active Bedtime, 0 2015 [facility] Refill(s) Coreg PO, BID, 0 Active Refill(s) 2015 [facility] Spironolactone 25 mg = 2 Active tab, PO, 2015 [facility] Daily, # 60 tab, 0 Refill(s) glimepiride PO, Daily, Active 0 Refill(s) 2015 [facility] Janumet PO, BID, 0 Active Refill(s) 2015 [facility] Notes: Inactive (Same as: 2015 [facility]) Non-formula ry Aranesp Notes: Inactive (Same as: 2015 [facility]) Non-Formula ry Advair Diskus 1 puff Inhalation Active 250-50 Al-Azzeh Chan MCG/DOSE Dandy, Inhalation JUAN GUY Twice a day Nasonex 2 sprays in Nasally Active 50 MCG/ACT Al-Azzeh Chan each Nasally Once Dandy, nostril a day JUAN GUY Spironolactone 1 tablet Orally Active 25 MG Orally Al-Azzeh Na war Once a day MD Dorman PA Januvia 1 tablet Orally Active 50 MG Orally Al-Azzeh Chan Once a day MD Dorman PA Glimepiride 1 tablet Orally Active 4 MG Orally Al-Azzeh Chan with Once a day Dandy, breakfast JUAN GUY or the first main meal of the day Atorvastatin 1 tablet Orally Active 40 MG Orally Al-Azzeh Nawa r Calcium Once a day MD Dorman PA Omeprazole 1 tablet Orally Active 20 mg Orally Al-Azzeh Chan twice a day Dandy, (bid) JUAN GUY Allergies, Adverse Reactions, Alerts Substance Category Reaction Severity Reaction Status Date Comments S ource type Reported penicillin Adverse Info Not Adverse Active Na war Reaction Available Reaction 6 Carly canela MD, PA penicillins Assertion Drug Active MH allergy [place] chloramphenic Assertion Drug Active ol allergy [place] Immunizations No Data Provided for This Section Results Order Name Results Value Reference Date Interpretation Comments [place] rce Range HEMATOLOGY WBC 7.2 3.7 - 10.4 2019 [place] HEMATOLOGY RBC 3.01 4.20 - 5.40 2019 [place] HEMATOLOGY Hgb 10.0 12.0 - 16.0 2019 [place] HEMATOLOGY Hct 29.5 36.0 - 48.0 2019 [place] HEMATOLOGY MCV 98.0 80.0 - 98.0 2019 [place] HEMATOLOGY MCH 33.2 27.0 - 31.0 2019 [place] HEMATOLOGY MCHC 33.9 32.0 - 36.0 2019 [place] HEMATOLOGY RDW 16.0 11.5 - 14.5 2019 [place] HEMATOLOGY Platelet 166 133 - 450 2019 [place] HEMATOLOGY MPV 8.3 7.4 - 10.4 2019 [place] HEMATOLOGY Neutrophils # 6.0 1.5 - 8.1 2019 [place] HEMATOLOGY Lymphocytes # 0.6 1.0 - 5.5 2019 [place] HEMATOLOGY Monocytes # 0.3 0.0 - 0.8 2019 [place] HEMATOLOGY Eosinophils # 0.1 0.0 - 0.5 2019 [place] HEMATOLOGY Basophils # 0.1 0.0 - 0.2 2019 [place] HEMATOLOGY Segs 76.0 45.0 - 75.0 2019 [place] HEMATOLOGY Bands 7.0 0.0 - 11.0 2019 [place] HEMATOLOGY Lymphocytes 9.0 20.0 - 40.0 2019 [place] HEMATOLOGY Monocytes 4.0 2.0 - 12.0 2019 [place] HEMATOLOGY Eosinophils 2.0 0.0 - 4.0 2019 [place] HEMATOLOGY Basophils 2.0 0.0 - 1.0 2019 [place] HEMATOLOGY Atypical 0.0 <=0.0 % Lymphs 2019 [place] HEMATOLOGY RBC Morph Normal Normal (11/22/19 9:50 AM) 2019 [facility] nd HEMATOLOGY Plt Morph Normal Normal (11/22/19 9:50 AM) 2019 [facility] nd HEMATOLOGY Retic Auto 2.2 0.5 - 1.5 2019 [place] HEMATOLOGY PT 13.5 12.0 - 14.7 2019 [place] HEMATOLOGY INR 1.03 0.85 - 1.17 2019 [place] IMMUNOLOGY Coronavirus Not Detected Not (COVID-19) (11/18/19 11:45 AM) Detected 2019 [place] JOANIE Pathology Reports No Data Provided for This Section Diagnostic Reports Report Value Date Source Bone Marrow Bio/Aspr VR PROCEDURE INFORMATION: 11/22/2019 [facility] Exam: IR Diagnostic Bone Marrow Biopsies And Asp irations Exam date and time: 11/22/2019 10:25 AM Age: 69 years old Clinical indication: Abnormal findings; Addition al info: Anemia/done in CT TECHNIQUE: Imaging protocol: Diagnostic bone marrow biopsie s and aspirations. The interpreting physician was present and supervise d the procedure. CT guidance was provided. COMPARISON: No relevant prior studies available. RADIATION DOSE METRICS: Total DLP: 158.33 mGy-cm PROCEDURE: Bone marrow aspiration and bone biops y PHYSICIAN PROVIDING SERVICE: Jasbir Lopez M.D. HISTORY: Anemia. SEDATION: Intravenous Versed and fentanyl. 2.0 mg of Versed and 100 mcg of fentanyl were utilized. 'Fac e to face' sedation time: 4.0 minutes. The sedation was performed with continuou s monitoring in the presence of a trained observer. CONSENT: The procedure, risks, benefits and alte rnatives were discussed with the patient and written informed consent was obt ained. TECHNIQUE: The procedure was performed u nder CT guidance. With the patient the prone position, Limited CT images were obtained through the pelvis and a suitable posterior location for biopsy of the le ft posterior iliac crest was chosen. A generous portion of the gluteal region was prepped with ChloraPrep and draped. The site was anesthetized with 1% li docaine. A 3 mm incision was made at the entry site. A 11-gauge bone biopsy n eedle was advanced under CT guidance to the posterior margin of the bone. 1% lidocaine was injected into the periosteal region. Utili zing the On - Control bone drill system, the needle was advanced into the marrow space. Bone marrow aspiration specimens were collected and deemed to be adequate by clyde valadez hematology -- manager pathology. The needle was then advanced to allow for core b one specimen. A good core specimen was obtained and given to the technolog ist. Hemostasis was achieved. The patient tolerated the procedure well and suf fered no immediate complications. CT imaging performed at this location utilizes r adiation dose optimization techniques which include one or more of the foll owing: -Automated exposure control. -Adjustment of the mA and/or kV according to pat ient size. -Use of iterative reconstruction technique. CT Radiation Dose DLP 158.33 mGy-cm IMPRESSION: 1. Bone marrow aspiration/bone biopsy, left azam c. Jasbir Lopez MD On 11/22/2019 11:11:34; VR-P [id number] Breast Complete Eduin US - BREAST COMPLETE EDUIN US 10/04/2015 [facility] ULTRASOUND OF BOTH BREASTS AND BOTH AXILLA: 2015 CLINICAL: Dense breasts. Comparison is made to exam d ated: 09/07/2015 mammogram - [facility]. Color flow and real-time ult rasound of both breasts and both axilla were performed. Terry scale images of the real-time examination were reviewed. For both breasts, all 4 quadrants, the retroareolar region and axilla are evaluated in this exam. No abnormalities were seen sonographically in ei ther breast or either axilla. IMPRESSION: BENIGN There is no sonographic evidence of malignancy. Return to annual mammogram s creening schedule is recommended. The results were reviewed with the patient. SUMMARY: The patient would likely macario efit from 3D tomosynthesis screening mammograms given her breast density, which can be performed at [facility]. Mart Lambert M.D. jt/:10/04/2015 13:42:31 Engineering Director: Chicho Dejesus, [facility] This exam was dictated and i nterpreted by [id number] for [facility]. letter sent: Normal exam Ultrasound BI-RADS: 2 Benign Digital Mammo Screening - DIGITAL MAMMO SCREENING EDUIN MA 016 [facility] Eduin MA BILATERAL DIGITAL SCREENING MAMMOGRAM WITH CAD: 09/07/2015 CLINICAL: Routine. Current study was evaluated with a Med Spec d Detection (CAD) system. Comparison is made to exam d ated: 09/28/2013 mammogram. Outside films requested but not received. The tissue of both breasts i s heterogeneously dense, which could obscure detection of small masses. Exam is limited as the techn ologist notes the patient would not allow for optimal compression. Patient complains of intermittent breast pain and/or tenderness. There are benign appearing s cattered calcifications and densities in both breasts. No significant masses, calci fications, or other findings are seen in either breast. There has been no significant interval change. IMPRESSION: BENIGN Clinical management of the patient's breast comp laints is recommended. There is no mammographic hattie dence of malignancy. A 1 year screening mammogram is recommended. SUMMARY: As the patient has dense ignacia ast parenchyma with scattered densities, this could obscure additional abnormalities. The patient would likely benefit from a supplemental screening test such as bilateral u ltrasound. This should be d iscussed with the patient by the referring physician. Mart simental/joyce:09/19/2015 08:31:07 Engineering Director: Anne Reina, [facility] This exam was dictated and i nterpreted by [id number] for [facility]. letter sent: Normal [place] Mammogram BI-RADS: 2 Benign Retroperitoneal limited w PROCEDURE: RENAL ULTRASOUND WITH DOPPL ER 08/22/2015 CLAUDIA Red Doppler US CLINICAL INDICATION: N18.3. Chronic kidney disea se. COMPARISON: None. TECHNIQUE: Multiple longitud inal and transverse real time sonographic images of [...] easures 11 x 4.6 x 5.3 cm. T he maximal left renal cortical thickness measures 1.6 cm. RENAL DOPPLER: The peak systolic velocity o f the abdominal aorta is 90.3 cm/s, the [...] normal morphology. BLADDER: Images of the urinary bladde r are unremarkable. Bilateral ureteral jets are demonstrated in the lumen of the urinary bladder by color flow analysis. The prevoid volume of the urinary bladder measures 284 mL. The postvoid volume measures 50.9 mL. IMPRESSION: 1. Findings suggesting medical renal disease. 2. Otherwise unremarkable renal ultrasound. 3. There is no sonographic e vidence for a hemodynamically significant renal artery stenosis. SL: 15 Chest 2 views DX EXAMINATION: Chest 2 views 08/09/2015 [place] CLINICAL HISTORY: Shortness of breath. COMPARISON: No [...] Signs Vital Sign Value Date Comments Source Height 160.02 cm 11/22/2019 [facility] Weight 68.182 11/22/2019 [facility] BMI Calculated 26.63 11/22/2019 [facility] Weight 150 02/15/2016 [facility], [place] Heart Rate 64 02/15/2016 [facility] [place] Diastolic (mm Hg) 82 02/15/2016 Chan canela MD, PA Systolic (mm Hg) 176 02/15/2016 Chan langford MD, PA Weight 158 11/01/2015 [facility] Heart Rate 73 11/01/2015 [facility] [place] Diastolic (mm Hg) 65 11/01/2015 Chan canela MD, PA Systolic (mm Hg) 120 11/01/2015 Chan langford MD, PA Weight 70 10/03/2015 [facility] BMI Calculated 25.68 10/03/2015 [facility] Height 165.1 cm 10/03/2015 [facility] Height 165.1 cm 08/13/2015 [facility] BMI Calculated 25.68 08/13/2015 [facility] Weight 70 08/13/2015 [facility] Encounters Location Location Encounter Encounter Reason Attending ADM DC Stat us Source Details Type Number For Provider Date Date Visit [facility] Outpatient [id number] Mohammad 08/09 08/10 [facility] 2 Morales /2015 [facility] Outpt Diag [id number] [place] 08/22 08/23 [facility] 0 Calvin [facility] Imaging [facility] OP [id number] Ameena 08/29 09/28 [place] [facility] 0 - [facility] Outpatient [id number] Ameena 09/06 09/07 [place] 1 - [facility] OP [id number] Ameena 10/01 10/31 [place] [facility] 1 - [facility] Outpatient [id number] Ameena 10/03 10/04 [facility] 2 - [facility] echo/caroti [id number] 10/15 10/15 Chan Dorman MD, d/arterial [id number] /2015 Dandy, PA dopplers [id number] , PA 0ca Chan echo/caroti [id number] 10/15 10/15 Chan Dorman MD, d/arterial [id number] /2015 Dandy, PA dopplers [id number] , PA a4e Chan echo/caroti [id number] 10/15 10/15 Chan Dorman MD, d/arterial [id number] /2015 JUAN Dorman dopplers [id number] , PA 309 [facility] Follow-Up [id number] 10/31 10/31 Charmaine Dorman MD, [id number] /2015 Dandy PA [id number] , P A aab [facility] Follow-Up [id number] 10/31 10/31 Charmaine Dorman MD, [id number] /2015 Dandy, PA [id number] , P A 75c [facility] Follow-Up [id number] 02/14 02/14 Charmaine Dorman MD, [id number] /2015 JUAN Dorman [id number] , P A 1b2 [facility] Outpatient [id number] Oma 11/21 11/22 [place] 3 Dralexanderharam /2019 [facility] Procedures Procedure Code Date Perfomer Comments Source [facility] BSO - Total [id number] 06/29/1997 [facility], abdominal [place] hysterectomy and bilateral salpingo-oophorect vivien Back care [id number] [facility] Assessment and Plan No Data Provided for This Section Plan of Care No Data Provided for This Section Social History Social History Date Source Social History TypeResponse 11/22/2019 [facility] Smoking Status Never smoker; Exposure to Tobacco Smoke None; Cigarette Smoking Last 365 Days No; Reg Smoking Cessation Counseling Yes entered on: 11/22/19 Social History ElementQualifiersDate Reported 02/15/2016 Chan Dorman MD, PA Tobacco Use: . Are you a: never smoker Feb 15, 2016 Do you drink alcohol? . Status: No Feb 15, 2016 Social History TypeResponse 11/01/2015 [facility] Smoking Status Never smoker; Exposure to Tobacco Smoke None; Cigarette Smoking Last 365 Days No; Reg Smoking Cessation Counseling Yes Social History TypeResponse 08/11/2015 CLAUDIA [facility] Smoking Status Never smoker; Exposure to Tobacco Smoke None; Cigarette Smoking Last 365 Days No; Reg Smoking Cessation Counseling Yes Family History No Data Provided for This Section Advance Directives No Data Provided for This Section Functional Status No Data Provided for This Section
--- OUTSIDE RECORDS SUMMARY | 2020-07-30 14:47 | XMS REPORT | Clinical Summary ---
:1950 Author Organization [facility] Address [address] [place] [address] Care Team Providers Name Role Phone Unavailable [...] dinner. hydrALAZINE Take 100 mg by 0 Act ingrid (APRESOLINE) 100 MG mouth 3 (three) tablet times daily. atorvastatin (LIPITOR) Take 20 mg by 0 Active 20 MG tablet mouth daily. pantoprazole Take 40 mg by 0 Act ingrid (PROTONIX) 40 MG mouth daily. tablet iron Take by mouth 0 Active fum,ps/folic/Bcomp,C daily. no.9 (INTEGRA PLUS ORAL) VITAMIN A ORAL Take by mouth 0 A ctive daily. ketorolac (ACULAR) 0.4 Place 1 drop [...] mg) tablet Active Problems Not on file Social History Tobacco Use Types Packs/Day Years Used Date Never Smoker Smokeless Tobacco: Never Used Alcohol Use Drinks/Week oz/Week Comments No Sex Assigned at Date Recorded Not on file Last Filed Vital Signs Not on file Plan of Treatment Health Maintenance Due Date Last Done Comments BREAST CANCER SCREENING 1950 COLON CANCER SCREENING COLONOSCOPY 1950 PNEUMOCOCCAL 65+ YRS (1 of 1 - [id number]) 2014 MEDICARE ANNUAL WELLNESS (YEAR 2 or FIRST YEAR if no 04/30/2015 IPPE) INFLUENZA VACCINE (#1) 2020 Results Not on fileafter 07/30/2019 Insurance Payer Benefit Plan / Subscriber ID Effective Dates Phone Addre ss Type Group MEDICARE MEDICARE A B [id number] 2014-Presen Medicare t [facility] GENERIC MEDICARE [id number] 2017-Present Medigap SUPPLEMENT/ILENE SUPPLEMENT VIDUAL
--- OUTSIDE RECORDS SUMMARY | 2020-07-30 14:48 | XMS REPORT | Continuity of Care Document ---
:1950 Author Organization [facility] t Address [address] [place] [address] Care Team Providers Name Role Phone Asked, Pcp Primary Care Physician Unavailable Simone MELENDREZ Attending Clinician Unavailable Ann Galdamez Attending Clinician Unavailable Esau ARIAS Attending Clinician Unavailable NIKOS Attending Clinician Unavailable QI BUSBY Attending Clinician Unavailable Rusty Attending Clinician Rusty Simpson Attending Clinician Reinaldo Morales Attending Clinician QI BUSBY Admitting Clinician Unavailable Payers Payer Name Policy Type Policy Effective Date Expiration Date Sour ce Number MEDICAREMEDICARE PART [id number] 2014 Jem mikaela Asa AND 00:00:00 Taoism [id number] 2014 [place] [facility] COMMERCIAL MISCMISC [id number] 2014 [place] [id number] 00:00:00 Met roberson 2013-Shahla rcial Problems Condition Condition Condition Status Onset Resolution Last Treating Co mments Source Name Details Category Date Date Treatment Clinician Date ANEMIA Diagnosis Active 2019-11-22 Mem oria 11-16 10:11:00 l ANEMIA 00:00: [place] 00 Active 11/17/2019 [facility] CKD stage CKD stage Disease Active Radha ston 4 due to 4 due to 12-16 Method i type 2 type 2 00:00: st diabetes diabetes 00 mellitus mellitus Elevated Elevated Disease Active [place] antibody antibody 6-20 Method i levels levels 00:00: st 00 N18.3 - Diagnosis Active 2015-11-26 Me moria "CHRONIC - 16:02:00 l KIDNEY N18.3 - 00:01: [place] DISEASE, "CHRONIC 00 STAGE" KIDNEY DISEASE, STAGE" Active 10/18/2015 CLAUDIA Teofilo ARANESP 60 Diagnosis Active 2016-03-13 Memoria MCG, 4-05 07:39:00 l CPT-29367, ARANESP 00:00: Her young D63.1 60 MCG, 00 CPT-43939, D63.1 Active 10/02/2015 [facility] DENSE Diagnosis Active 2015-10-04 Mem oria BREAST 09-20 12:23:00 l DENSE 00:00: [place] BREAST 00 Active 09/21/2015 [place] SCREENING Diagnosis Active 2015-09-07 Memoria 3- 12:30:00 l 00:00: [place] SCREENING 00 Active 08/30/2015 [place] SCREENING Diagnosis Active 2015-09-30 Memoria MAMMO 2- 15:43:00 l 00:00: [place] SCREENING 00 MAMMO Active 08/27/2015 [facility] CPT 25078, Diagnosis Active 2016-01-24 Memoria ANEMIA IN 2-10 12:01:00 l CKD D63.1 CPT 00:00: [place] [address], 00 ANEMIA IN CKD D63.1 Active 08/08/2015 [facility] Anemia Problem Resolve 2019-11-24 Sebastian dutch (disorder) d 22:59:49 l Anemia [place] (disorder) Resolved Problem 11/24/2019 [facility] Chronic Problem Resolve 2019-11-24 Mem oria renal d 22:59:49 l impairment Chronic Her young (disorder) renal impairment (disorder) Resolved Problem 11/24/2019 [facility] Diabetes Problem Resolve 2019-11-24 Me moria mellitus d 22:59:49 l type 2 Diabetes Paolo n (disorder) mellitus type 2 (disorder) Resolved Problem 11/24/2019 [facility] Hypertensi Problem Resolve 2019-11-24 Memoria ve d 22:59:49 l disorder, [place] systemic Hypertensi arterial ve (disorder) disorder, systemic arterial (disorder) Resolved Problem 11/24/2019 [facility] Retinopath Problem Resolve 2019-11-24 Memoria y d 22:59:49 l (disorder) [place] n Retinopath y (disorder) Resolved Problem 11/24/2019 [facility] Peripheral Diagnosis Active 2016-04-10 Memoria vascular 04:16:47 l disease, [place] unspecifie Peripheral d vascular disease, unspecifie d Active Diagnosis 04/10/2016 Chan Dorman MD, PA Bruit Problem Active 2016-04-10 Memor ia 04:16:47 l Bruit [place] Active Problem 04/10/2016 Chan Dorman MD, PA Dyspnea, Diagnosis Active 2016-04-10 M emoria unspecifie 04:16:47 l d Dyspnea, [place] n unspecifie d Active Diagnosis 04/10/2016 Chan Dorman MD, PA Abnormal Problem Active 2016-04-10 Mem oria ECG 04:16:47 l Abnormal [place] ECG Active Problem 04/10/2016 Chan Dorman MD, PA Shortness Diagnosis Active 2016-04-10 Memoria of breath 04:16:47 l [place] Shortness of breath Active Diagnosis 04/10/2016 Chan Dorman MD, PA Screening Diagnosis Active 2016-04-10 Memoria for 04:16:47 l cardiovasc [place] ular Screening disorders for cardiovasc ular disorders Active Diagnosis 04/10/2016 Chan Dorman MD, PA Hypertensi Problem Active 2016-04-10 M emoria ve heart 04:16:47 l disease [place] without Hypertensi heart ve heart failure disease without heart failure Active Problem 04/10/2016 Chan Dorman MD, PA Pure Diagnosis Active 2016-04-10 Mem oria hyperchole 04:16:47 l sterolemia Pure [place] hyperchole sterolemia Active Diagnosis 04/10/2016 Chan Dorman MD, PA Anemia of Problem Active 2019-11-24 Me moria chronic 22:59:49 l renal Anemia [place] failure of chronic (disorder) renal failure (disorder) Active Problem 11/24/2019 [facility] [place] R06.02 Diagnosis Active 2015-08-09 Mem oria 16:58:00 l R06.02 [place] Active [place] SHORTNESS Diagnosis Active 2015-08-09 Memoria OF BREATH 16:58:00 l [place] SHORTNESS OF BREATH Active [place] ANEMIA IN Diagnosis Active 2016-01-24 Memoria CHRONIC 12:01:00 l KIDNEY ANEMIA [place] DISEASE IN CHRONIC KIDNEY DISEASE Active [place] ENCNTR Diagnosis Active 2015-09-07 Mem oria SCREEN 12:30:00 l MAMMOGRAM ENCNTR Rae nn FOR SCREEN MALIGNANT MAMMOGRAM NE FOR MALIGNANT NE Active [place] INCONCLUSI Diagnosis Active 2015-10-04 Memoria VE 12:23:00 l MAMMOGRAM [place] INCONCLUSI VE MAMMOGRAM Active [facility] ANEMIA, Diagnosis Active 2019-11-22 Me moria UNSPECIFIE 10:11:00 l D ANEMIA, [place] UNSPECIFIE D Active [facility] Allergies, Adverse Reactions, Alerts Allergy Allergy Status Severity Reaction(s) Onset Inactive Treating Comm ents Source Name Type Date Date Clinician Chloramp Propensi Active Anaphylaxis 2017-06 "closed [place] henicol ty to 0-29 my Methodi adverse 00:00: throat, st reaction 00 terrible s to rash" drug Penicill Propensi Active Anaphylaxis 2017-06 "closed [place] ins ty to 0-29 my Methodi adverse 00:00: throat, st reaction 00 terrible s to rash" drug Adhesive Propensi Active Rash 2017-[address] [facility] [facility] - adverse [facility] Medical reaction 00 Center s Chloramp Propensi Active Anaphylaxis 2017-[address] henicol ty to 0-05 [facility] - Sod adverse 00:00: Medical Succinat reaction 00 Center e s Penicill Propensi Active Anaphylaxis 2017-[address] ins ty to 0-05 [facility] - adverse 00:00: Medical reaction 00 Center s penicill penicill Active Info Not Sebastian dutch in in Available 8-19 l 00:00: [place] 00 penicill penicill Active Memori a ins ins l [place] chloramp chloramp Active Memori a henicol henicol l [place] Family History Family Member Diagnosis Comments Start Date Stop Date Source Natural father Cancer [place] [facility] Natural mother Cancer [place] [facility] Natural mother Diabetes [place] [facility] Natural mother Heart disease [place] [facility] Natural mother Hypertension [place] [facility] Natural sister Cancer [place] [facility] Social History Social Habit Start Date Stop Date Quantity Comments Source Sex Assigned [facility] Tobacco use and 2018-04-13 2018-04-13 Never used RHINA Harper kes - exposure 00:00:00 [facility]:00 [facility] Alcohol intake 2018-04-13 2018-04-13 Current RHINA Salazar es - 00:00:00 00:00:00 non-drinker of Medical Ce nter alcohol (finding) TobaccoUse: 2016-02-15 2016-02-15 [facility] 00:[facility]:00 00:00:00 Smoking Status Start Date Stop Date Source Social History [facility] Medications Ordered Filled Start Stop Current Ordering Indication Dosage Frequency Signature Comments Components Source Medication Medication Date Date Medication? Clinician (SIG) Name Name Epoetin 2020-0 Yes 2,000 unit Sebastian dutch Bella 2000 5-26 = 1 ml, l UNT/ML 15:01: SUB-Q, 5X [place] n Injectable 00 Day, # 1 Solution ml, 0 [Procrit] Refill(s) Hydralazine 2019-0 Yes 100 mg = 1 Memoria Hydrochlori 5-26 tab, PO, l de 100 MG 14:56: BID, # 60 Her young Oral Tablet 00 tab, 0 Refill(s) doxazosin 2 2019-0 Yes 2 mg = 1 Me moria mg oral 5-26 tab, PO, l tablet 14:56: Daily, # [place] 00 30 tab, 0 Refill(s) Brimonidine 2019-0 Yes 1 drp, Sebastian dutch tartrate 2 5-26 OPTH, Q8H, l MG/ML 14:56: # 5 mL, 0 [place] Ophthalmic 00 Refill(s) Solution Ketorolac 2019-0 Yes 1 drp, Memori a Tromethamin 5-26 BOTH EYES, l e 5 MG/ML 14:56: QID, PRN Herm marbiell Ophthalmic 00 Itching, # Solution 5 mL, 0 [Acular] Refill(s) hydrALAZINE 2018-06 Yes 100mg Q.5D Take 100 [place] (APRESOLINE 1-19 mg by Methodi ) 100 MG 11:08: mouth 2 st tablet 37 (two) times a day. losartan 2018-06 Yes 50mg QD Take 50 mg Radha ston (COZAAR) 50 1-19 by mouth Meth doroteo MG tablet 11:08: daily. st 37 keTOROlac 2018-06 Yes 1[drp] Q.5D Administer López (ACULAR LS) 1-19 1 drop to Met hodi 0.4 % 11:08: both eyes st ophthalmic 37 2 (two) solution times a day. iron fum,ps 2018-06 Yes QD Take by Radhanita morgan cmp/vit 07-17 mouth Methodi C/niacin 11:08: daily. st (INTEGRA 37 ORAL) linaGLIPtin 2018-06 Yes 5mg QD Take 5 mg [place] (TRADJENTA) 07-17 by mouth Meth doroteo 5 mg tablet 11:08: daily with st 37 breakfast. epoetin 2018-06 Yes [id number] Inject [place]ella 07-17 30,000 Methodi (PROCRIT 11:08: Units as st INJ) 37 directed. doxazosin 2018-06 Yes 2mg QD Take 2 mg Radha ston (CARDURA) 2 07-17 by mouth Meth doroteo MG tablet 11:08: nightly. st 36 glimepiride 2018-06 Yes 2mg Q.5D Take 2 mg [place] (AMARYL) 2 07-17 by mouth 2 Met hodi MG tablet 11:05: (two) st 09 times a day. carvedilol 2018-06 Yes 25mg Q.5D Take 25 mg [place] (COREG) 25 07-17 by mouth 2 Met hodi MG tablet 11:05: (two) st 09 times a day with meals. atorvastati 2018-06 Yes 20mg QD Take 20 mg López n (LIPITOR) 07-17 by mouth Meth doroteo 20 MG 11:05: daily. st tablet 09 Default OP ins calcium 2018-06 Yes 667mg Q.[id number] Take 667 [place] acetate 07-17 [id number] mg by Metho di (PHOSLO) 11:05: 3D mouth 3 [address] 667 mg 09 (three) capsule times a day with meals. cholecalcif 2018-06 Yes 1{tbl} QD Take 1 [place] aric, 07-17 tablet by Methodi vitamin D3, 11:05: mouth st (VITAMIN 09 daily. D3) 5,000 unit tablet brimonidine 2018-06 Yes 1[drp] Q.5D Administer Ló[place] (ALPHAGAN) 07-17 1 drop to Meth doroteo 0.2 % 11:05: both eyes st ophthalmic 09 2 (two) solution times a day. furosemide 2018-06 Yes 20mg Take 20 mg [place] (LASIX) 20 1-19 by mouth Metho di mg tablet 11:05: as needed. st 09 glimepiride 2017-06 Yes 2mg Q.5D Take [address] (AMARYL) 2 0-15 by mouth 2 Lily es - MG tablet 15:59: (two) Medical 36 times Center daily. carvedilol 2017-06 Yes 25mg Take [address] (COREG) 25 0-15 by mouth 2 Lily es - MG tablet 15:59: (two) Medical 36 times Center daily with breakfast and dinner. hydrALAZINE 2017-06 Yes 100mg Q.19346047 Take [address] (APRESOLINE 0-15 [id number] mg by L ukes - ) 100 MG 15:59: 3D mouth 3 Medica l tablet 36 (three) Center times daily. atorvastati 2017-06 Yes 20mg QD Take [address] n (LIPITOR) 0-15 by mouth Luke s - 20 MG 15:59: daily. Medical tablet 36 Center pantoprazol 2017-06 Yes 40mg QD Take [address] e 0-15 by mouth [facility] - (PROTONIX) 15:59: daily. Medic al 40 MG 36 Center tablet iron 2017-06 Yes QD Take by [facility] fum,ps/foli 0-15 mouth [facility] - c/Bcomp,C 15:59: daily. Medica l no.9 36 Center (INTEGRA PLUS ORAL) VITAMIN A 2017-06 Yes QD Take by [facility] t ORAL 0-15 mouth [facility] - 15:59: daily. Medical 36 Center ketorolac 2017-06 Yes 1[drp] Q.5D Place [address] (ACULAR) 0-15 drop into [facility] - 0.4 % Drop 15:59: both eyes Me dical 36 2 (two) Center times daily. brimonidine 2017-06 Yes 1[drp] Q.5D Place [address] (ALPHAGAN) 0-15 drop into Luke s - 0.2 % 15:59: both eyes Medical ophthalmic 36 2 (two) Center solution times daily. losartan 2017-06 Yes 50mg QD Take [address] (COZAAR) 50 0-15 by mouth Luke s - MG tablet 15:59: daily. Medica l 36 Center calcium 2017-06 Yes 1{tbl} QD Take [address] citrate 0-15 tablet by [facility] - (CALCITRATE 15:59: mouth Medic al ) 200 mg 36 daily. Center (950 mg) tablet Advair 2015-06 Yes [place] 1 puff Memori a Diskus 0-13 Al-Azzeh l 04:16: [place] Nasonex 2015-06 Yes [place] 2 sprays Mem oria 0-13 Al-Azzeh in each l 04:16: nostril [place] 47 Spironolact 2015-06 Yes [place] 1 tablet Memoria one 0-13 Al-Azzeh l 04:16: [place] 47 Januvia 2015-06 Yes [place] 1 tablet Mem oria 0-13 Al-Azzeh l 04:16: [place] [id number] Glimepiride 2015-06 Yes [place] 1 tablet Memoria 0-13 Al-Azzeh with l 04:16: breakfast [place] or the first main meal of the day Atorvastati 2015-06 Yes [place] 1 tablet Memoria n Calcium 0-13 Al-Azzeh l 04:16: [place] 47 Omeprazole 2015-06 Yes [place] 1 tablet Memoria 0-13 Al-Azzeh l 04:16: [place] 47 HydrALAZINE Yes [place] 1 tablet Memoria HCl 8-19 Al-Azzeh l 00:00: Isosorbide Yes [place] 1 tablet Memoria Dinitrate 8-19 Al-Azzeh l 00:00: Carvedilol Yes [place] as Sebastian dutch 5-05 Al-Azzeh directed l 00:00: Carvedilol No [place] 1 tablet Memoria 5-05 Al-Azzeh l 00:00: Carvedilol Yes [place] as Sebastian dutch 5-05 Al-[facility]h directed l 00:00: Aranesp No Notes: Memoria 5-04 (Same as: l 18:00: Jenna) Non-formul [place] Aranesp No Notes: Memoria 4-19 (Same as: l 17:00: Aranesp) [place] Non-formul roosevelt Amlodipine No [place] 1 tablet Memoria Besylate 4-13 Al-Azzeh l 00:00: [place] 00 Aranesp No Notes: Memoria 4-06 (Same as: l 16:00: Aranesp) [place] 00 Non-formul [place]osevelt Aranesp No Notes: Memoria 3-21 (Same as: l 18:00: Aranesp) [place] 00 Non-formul ro[place] atorvastati Yes PO, Memori a n 3-04 Bedtime, 0 l 01:50: Refill(s) [place] 00 Coreg Yes PO, BID, 0 Memori a 3-04 Refill(s) l 01:50: [place] 00 Spironolact Yes 25 mg = 2 M emoria one 3-04 tab, PO, l 01:50: Daily, # [place] 00 60 tab, 0 Refill(s) glimepiride Yes PO, Daily, Memoria 3-04 0 l 01:50: Refill(s) [place] Janumet Yes PO, BID, 0 Sebastian dutch 3-04 Refill(s) l 01:50: [place] 00 Aranesp No Notes: Memoria 3-03 (Same as: l 19:00: Aranesp) [place] 00 Non-formul [place]osevelt Aranesp No Notes: Memoria 2-12 (Same as: l 19:00: Aranesp) [place] Non-Formul roosevelt Vital Signs Vital Name Observation Time Observation Value Comments Source Height 2019-11-22 14:31:00 160.02 cm [facility] Weight 2019-11-22 14:31:00 [facility] BMI Calculated 2019-11-22 14:31:00 Franori al [place] Weight 2016-02-15 19:15:00 [facility] Heart Rate 2016-02-15 19:15:00 [facility] Diastolic (mm Hg) 2016-02-15 19:15:00 [facility] calrton [place] Systolic (mm Hg) 2016-02-15 19:15:00 Sebastian rial [place] Weight 2015-11-01 16:00:00 [facility] [place] Heart Rate 2015-11-01 16:00:00 [facility] [place] Diastolic (mm Hg) 2015-11-01 16:00:00 Mem orial [place] Systolic (mm Hg) 2015-11-01 16:00:00 Sebastian paz [place] Weight 2015-10-03 15:15:00 [facility] [place] BMI Calculated 2015-10-03 15:15:00 Memori al [place] Height 2015-10-03 15:15:00 165.1 cm [facility] [place] Height 2015-08-13 21:21:00 165.1 cm [facility] [place] BMI Calculated 2015-08-13 21:21:00 Memori al [place] Weight 2015-08-13 21:21:00 [facility] [place] Procedures Procedure Date / Time Performed Performing Clinician Nati CANALES BSO - Total abdominal 1997-06-29 06:00:00 Ut morial [place] hysterectomy and bilateral salpingo-oophorectomy Back care [facility] Plan of Care Planned Activity Planned Date Details Comments Source Future Scheduled 2020-02-28 INFLUENZA VACCINE (#1) [facility] Test 00:00:00 [code = INFLUENZA Medical Ce nter VACCINE (#1)] Future Scheduled 2020-01-28 INFLUENZA VACCINE [place] [facility] Test 00:00:00 [code = INFLUENZA VACCINE] Future Scheduled 2015-04-[address] [facility] - Test 00:00:00 WELLNESS (YEAR 2 or Medical Center FIRST YEAR if no IPPE) [code = MEDICARE ANNUAL WELLNESS (YEAR 2 or FIRST YEAR if no IPPE)] Future Scheduled 2014 PNEUMOCOCCAL 65+ [facility] - Test 00:00:00 (1 of 1 - Medical Center [id number] PCV13) [code = PNEUMOCOCCAL 65+ YRS (1 of 1 - [id number] PCV13)] Future Scheduled 1999 BREAST CANCER [facility] Test 00:00:00 SCREENING [code = BREAST CANCER SCREENING] Future Scheduled 1999 COLONOSCOPY SCREENING [place] [facility] Test 00:00:00 [code = COLONOSCOPY SCREENING] Future Scheduled 1999 SHINGLES VACCINES (#1) H [place] [facility] Test 00:00:00 [code = SHINGLES VACCINES (#1)] Future Scheduled 1965 COVID-19 VACCINE (1 of [place] [facility] Test 00:00:00 2) [code = COVID-19 VACCINE (1 of 2)] Future Scheduled 1959 DIABETES: RETINAL EYE [place] [facility] Test 00:00:00 EXAM [code = DIABETES: RETINAL EYE EXAM] Future Scheduled 1959 DIABETIC FOOT EXAM [place] [facility] Test 00:00:00 [code = DIABETIC FOOT EXAM] Future Scheduled [address] - Test 00:00:00 malignant neoplasm of [facility] breast (procedure) [code = 992194095] Future Scheduled [address] [facility] - Test 00:00:00 malignant neoplasm of [facility] colon (procedure) [code = 375420031] Encounters Start End Encounter Admission Attending Care Care Encounter Source Date/Time Date/Time Type Type Clinicians Facility Department ID 2019-11-22 2019-11-22 Outpatient IFRAH Galdamez MHPL [id number] 10:10:00 23:59:00 Oma 03 Ann 2019-11-22 2019-11-22 Outpatient MHBL MED [id number] BL 10:10:00 10:10:00 2019-07-13 2019-07-13 [facility] [id number] [address] [place] [address] 00:00:00 00:00:00 JESSICA [address] 2016-02-15 2016-02-15 Outpatient Chan Chan [id number] eClinic 14:15:00 14:15:00 Dandy Dorman MD, valeriy Crawford MD, PA PA 2015-11-01 2015-11-01 Outpatient Chan Giles [id number] eClinic 11:00:00 11:00:00 Dandy Dorman MD, valeriy Crawford MD, PA PA 2015-10-02 2015-10-31 Outpatient Rusty SE MHSE [id number] 12:40:00 23:59:00 , Ameena 2015-10-16 2015-10-16 Outpatient Chan Chan [id number] eClinic 10:00:00 10:00:00 Dandy Dorman MD, valeriy Crawford MD, PA PA 2015-10-04 2015-10-04 Outpatient Rusty MHSE MHSE [id number] 12:22:00 23:59:00 , Ameena 2015-08-30 2015-09-28 Outpatient Rusty MENGSE MHSE [id number] 12:18:00 23:59:00 , Ameena 2015-09-07 2015-09-07 Outpatient Rusty MENGSE MHSE [id number] 12:19:00 23:59:00 , Ameena 2015-08-22 2015-08-22 Outpatient Calvin MHOIP MHOIP [id number] 10:14:00 23:59:00 Logan M 2015-08-09 2015-08-09 Outpatient Carmen, MHSE MHSE [id number] 16:46:00 23:59:00 Mohammad 42 Raffiihuddin Results Test Description Test Time Test Comments Results Result Comments Source HEMATOLOGY 2019-11-22 7.2 [facility] Rae nn 14:50:00 HEMATOLOGY 2019-11-22 3.01 [facility] Are nn 14:50:00 HEMATOLOGY 2019-11-22 10.0 [facility] Rae nn 14:50:00 HEMATOLOGY 2019-11-22 29.5 [facility] Rae nn 14:50:00 HEMATOLOGY 2019-11-22 98.0 [facility] Rae nn 14:50:00 HEMATOLOGY 2019-11-22 14:50:00 Test Item Value Reference Range Interpretation Comme nts MCH (test code = MCH) 33.2 pg 27.0-31.0 [facility] [id number] 14:50:0033.9[facility]ann[facility]OLOGY 2019-11-22 14:50:0016.0[facility] V[id number] 14:50:71996Dbrdtgru TzpafuxESSOZMPSOZ7219-83-90 14:50:008.3[facility] JxtkevuEJLXYXDWLO8066-50-38 14:50:006.0[facility] XftdvfsZRSHRNIPOC8314-78-25 14:50:000.6[facility] [place] AZIXHSJDSS5891-03-65 14:50:000.3[facility] PowrnqnLWEMAIXPCT8818-83-61 14:50:000.1 [facility] OlikxrlNWQMQKGEHJ2889-85-36 14:50:000.1[facility] HermannHEMATOLOGY 2019-11-22 14:50:0076.0[facility] CsfjldcHIBZADXTSP1882-66-14 14:50:007.0[facility] VhpahrhGFESKQKSQS0225-31-47 14:50:009.0[facility] VmkujvhOFVZQPNRES4329-54-61 14:50:004.0[facility] AkvjtzjSEGCMLJZKD5168-21-17 14:50:002.0[facility] [place] DBWZBUNVQN1822-52-68 14:50:002.0[facility] KrzarqnTYPWPBSXUE9009-89-29 14:50:000.0 [facility] FkqzwokQWKFHEVTWA4550-34-72 14:50:00Normal (11/22/19 9:50 AM)[facility] NxaycdhSCQDFBHJJT1881-59-87 14:50:00Normal (11/22/19 9:50 AM)[facility] MIKEZBBBVE8737-68-15 14:50:002.2[facility] [id number] 16:45:00 Test Item Value Reference Range Interpretation Comments PT (test code = PT) 13.5 s 12.0-14.7 [facility]DkkrljiACMHZMFCLJ4405-93-47 16:45:00 Test Item Value Reference Range Interpretation Comments INR (test code = INR) 1.03 1 0.85-1.17 [facility]QbojbmxPWFHOOQPBS6951-63-52 16:45:00Not Detected (11/18/19 11:45 AM) [facility] [id number] 14:18:00 Test Item Value Reference Range Interpretation Comments POC-GLUCOSE METER 190 mg/dL 70-110 H TESTED AT [facility] [address] ([facility]) (test code CAMBR[place] E BLDG A = 1538) [facility] 7703 0
[2020-07-30 19:33] LABS: Basophils % 0.6 % (0-1.3); Hematocrit 26.4 % (36.0-45.0); Lymphocytes % 19.7 % (15.3-44.8); MPV 9.2 fL (7.6-11.3); RBC Red Blood Cell Count 2.71 M/uL (3.86-4.86)
[2020-07-30 19:34] LABS: Protime INR 1.1
[2020-07-30 19:50] LABS: ALT/SGPT 30 U/L (12-78); AST/SGOT 18 U/L (15-37); Albumin 3.6 g/dL (3.4-5.0); Alkaline Phosphatase 100 U/L (45-117); BUN Blood Urea Nitrogen 83 mg/dL (7-18); Bicarbonate 16 mmol/L (21-32); Bilirubin Direct 0.1 mg/dL (0-0.2); Bilirubin Total 0.4 mg/dL (0.2-1.0); Glucose Level 146 mg/dL (74-106); Lipase 303 U/L (73-393); Magnesium 1.8 mg/dL (1.8-2.4); NT PRO-BNP 1289 pg/mL (<125); Potassium 3.9 mmol/L (3.5-5.1); Protein, Total 7.1 g/dL (6.4-8.2); Sodium Level 146 mmol/L (136-145); Troponin (Emerg Dept Use Only) < 0.02 ng/mL (0.0-0.045)
--- NOTE | 2020-07-30 20:15 | RAD REPORT ---
EXAM DESCRIPTION: RAD - Chest Single View - 07/30/2020 7:59 pm CLINICAL HISTORY: nausea/vomiting, shortness of breath COMPARISON: Portable September 2019 TECHNIQUE: AP portable chest image was obtained 07/30/2020 7:59 pm . FINDINGS: Lung volumes are low accentuating interstitial pattern. This potentially masks early edema or infiltrate. No focal mass or consolidation. No significant failure or volume overload. Heart and vasculature are normal. No measurable pleural effusion and no pneumothorax. No acute bony abnormality seen. No acute aortic findings suspected. IMPRESSION: Limited shallow inspiration exam without acute cardiopulmonary finding.
[2020-07-30 20:57] LABS: Urine Bacteria <20 /HPF (<20); Urine RBC NONE SEEN /HPF (NONE SEEN)
[2020-07-30] MEDS ORDERED: Ringers Lactate 1,000 ML IV ONE (21:18)
[2020-07-30] MEDS ORDERED: NA CHLORIDE 0.9% 250 ML ONE (21:18)
--- NOTE | 2020-07-30 21:22 | ER ---
Nurse's Notes [facility] Name: Tracy Butt Age: 70 yrs Sex: Female : 1950 Arrival Date: 07/30/2020 Time: 14:13 Bed 2 Private MD: Noe Taylor Diagnosis: Nausea and vomiting;Unspecified kidney failure Presentation: 07/30 15:19 Chief complaint: Patient states: Nausea and vomiting off and on this week, worse today, ca1 unable to keep anything down today. 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 Reports RLQ pain started today. Coronavirus screen: Client denies travel out of the [place] in the last 14 days. At this time, the client does not indicate any symptoms associated with coronavirus-19. Ebola Screen: Patient negative for fever greater than or equal to 101.5 degrees Fahrenheit, and additional compatible Ebola Virus Disease symptoms Patient denies exposure to infectious person. Patient denies travel to an Ebola-affected area in the 21 days before illness onset. No symptoms or risks identified at this time. Initial Sepsis Screen: Does the patient meet any 2 criteria? No. Patient's initial sepsis screen is negative. Does the patient have a suspected source of infection? No. Patient's initial sepsis screen is negative. Risk Assessment: Do you want to hurt yourself or someone else? Patient reports no desire to harm self or others. Onset of symptoms was July 30, 2020. 15:19 Method Of Arrival: Ambulatory ca1 15:19 Acuity: ANTHONY 3 ca1 Historical: - Allergies: 15:24 CHLORAMPHENICOL; ca1 15:24 PENICILLINS; ca1 15:24 Latex, Natural Rubber; ca1 15:24 Zofran or Morphine, last time I was here I had itching to either 1 of them; ca1 - PMHx: 15:24 Diabetes - NIDDM; Hypertension; kidney disease; Anemia; ca1 - PSHx: 15:24 Hysterectomy; left knee replacement; back sx diane placed; ca1 - Immunization history:: Pneumococcal vaccine is up to date, . - Social history:: Smoking status: Patient denies any tobacco usage or history of. Screenin:26 Abuse screen: Denies threats or abuse. Denies injuries from another. Nutritional rr5 screening: No deficits noted. Tuberculosis screening: No symptoms or risk factors identified. Fall Risk IV access (20 points). Total Moy Fall Scale indicates No Risk (0-24 pts). Assessment: 19:26 General: Appears in no apparent distress. uncomfortable, Behavior is calm, cooperative, rr5 appropriate for age. Pain: Complains of pain in right lower quadrant Pain currently is 6 out of 10 on a pain scale. Quality of pain is described as aching, Pain began gradually, Is intermittent. Neuro: Level of Consciousness is awake, alert, obeys commands, Oriented to person, place, time. Cardiovascular: Capillary refill < 3 seconds Patient's skin is warm and dry. Respiratory: Airway is patent Respiratory effort is even, unlabored, Respiratory pattern is regular, symmetrical. GI: Abdomen is round non-distended, Reports lower abdominal pain, nausea, vomiting. : No signs and/or symptoms were reported regarding the genitourinary system. EENT: No signs and/or symptoms were reported regarding the EENT system. Derm: Skin is intact, is healthy with good turgor, Skin temperature is warm. Musculoskeletal: Circulation, motion, and sensation intact. Capillary refill < 3 seconds. 20:20 Reassessment: Patient appears in no apparent distress at this time. Patient is alert, rr5 oriented x 3, equal unlabored respirations, skin warm/dry/pink. awaiting for results, no complaints made. 21:00 Reassessment: Patient appears in no apparent distress at this time. Patient and/or rr5 family updated on plan of care and expected duration. Pain level reassessed. Patient is alert, oriented x 3, equal unlabored respirations, skin warm/dry/pink. hospitalist at bedside. 23:38 Reassessment: Patient and/or family updated on plan of care and expected duration. Pain ea level reassessed. Patient is alert, oriented x 3, equal unlabored respirations, skin warm/dry/pink. Pt admitted to second floor. Report called to receiving nurse. Pt left ED via stretcher per electronic development technician. Pt tolerating well. Vital Signs: 15:19 BP 134 / 43; Pulse 64; Resp 16 S; Temp 97.7(TE); Pulse Ox 99% on R/A; Weight 69.85 kg ca1 (R); Height 5 ft. 4 in. (162.56 cm) (R); Pain 2/10; 19:12 BP 177 / 91; sp 19:12 Pulse 69; Resp 20; Pulse Ox 99% ; sp 15:19 Body Mass Index 26.43 (69.85 kg, 162.56 cm) ca1 ED Course: 14:13 Patient arrived in ED. ag5 14:13 Noe Taylor MD is Private Physician. ag5 15:23 Triage completed. ca1 15:24 Arm band placed on right wrist. ca1 18:18 Ute Gustafson, PARVIN is Primary Nurse. ca1 18:49 Tian Martínez PA is PHCP. cp 18:49 Abhishek Gallardo MD is Attending Physician. cp 18:59 Attending Physician role handed off by Abhishek Gallardo MD cp 18:59 Sven Osuna MD is Attending Physician. cp 19:25 EKG done, by ED staff, reviewed by Tian MARTINEZ. rr5 19:26 Patient has correct armband on for positive identification. Placed in gown. Bed in low rr5 position. Call light in reach. Side rails up X2. pipe turner on. Pulse ox on. NIBP on. 19:26 Inserted saline lock: 20 gauge in right forearm, using aseptic technique. Blood rr5 collected. 20:18 RAD In Process Unspecified. EDMS 20:42 Urine Microscopic Only Sent. ds4 20:59 Mak Ellison DO is Hospitalizing Provider. cp 21:45 CT Stone Protocol In Process Unspecified. EDMS 21:49 COVID swab sent to lab. rr5 23:37 No provider procedures requiring assistance completed. Patient admitted, IV remains in ea place. Administered Medications: 21:07 Drug: NS 0.9% 250 ml Route: IV; Rate: bolus; Site: right forearm; rr5 21:50 Follow up: Response: No adverse reaction; IV Status: Completed infusion; IV Intake: rr5 250ml 21:07 Drug: Lactated Ringers Solution 1000 ml Route: IV; Rate: 75 ml/hr; Site: right forearm; rr5 Intake: 21:50 IV: 250ml; Total: 250ml. rr5 Outcome: 21:00 Decision to Hospitalize by Provider. cp 23:38 Admitted to Med/surg accompanied by tech, via stretcher, room 209, on monitor, Report ea called to Report called to Rubens on second floor 23:38 Condition: stable 23:38 Instructed on the need for admit. 23:40 Patient left the ED. carlos Signatures: Dispatcher [employer] EDMS Angélica Michelle Donovan ds4 Tian Martínez PA PA cp Antunez, Elena, RN Gerardo Fields ea RN RN rr5 Ute Gustafson RN RN marilou Childers, Alina ag5
--- NOTE | 2020-07-30 21:23 | EDPHYS ---
Physician Documentation [facility] Name: Tracy Butt Age: 70 yrs Sex: Female : 1950 Arrival Date: 07/30/2020 Time: 14:13 Bed 2 Private MD: Noe Taylor ED Physician Sven Osuna HPI: 07/30 19:07 This 70 yrs old Female presents to ER via Ambulatory with complaints of cp Nausea, Kidney Problem. 19:07 The patient presents to the emergency department with nausea, that is mild, vomiting, cp that is intermittent. Onset: The symptoms/episode began/occurred last week. Possible causes: worsening kidney failure. 19:07 Associated signs and symptoms: Pertinent positives: abdominal pain, Pertinent cp negatives: constipation, diarrhea, dysuria, fever, GI bleeding, active vomiting. 19:07 Severity of symptoms: in the emergency department the symptoms are unchanged despite cp home interventions. Patient reports history of chronic kidney failure. Referred to ED by cellophane wrapping examiner with concern for worsening kidney disease and possible uremia. Historical: - Allergies: 15:24 CHLORAMPHENICOL; ca1 15:24 PENICILLINS; ca1 15:24 Latex, Natural Rubber; ca1 15:24 Zofran or Morphine, last time I was here I had itching to either 1 of them; ca1 - PMHx: 15:24 Diabetes - NIDDM; Hypertension; kidney disease; Anemia; ca1 - PSHx: 15:24 Hysterectomy; left knee replacement; back sx diane placed; ca1 - Immunization history:: Pneumococcal vaccine is up to date, . - Social history:: Smoking status: Patient denies any tobacco usage or history of. ROS: 19:15 Constitutional: Negative for body aches, chills, fever, poor PO intake. cp 19:15 Eyes: Negative for injury, pain, redness, and discharge. cp 19:15 Cardiovascular: Negative for chest pain, edema, palpitations. 19:15 Respiratory: Negative for cough, shortness of breath, wheezing. 19:15 Abdomen/GI: Positive for abdominal pain, nausea, vomiting, of the right lower quadrant, Negative for diarrhea, constipation. 19:15 Back: Negative for pain at rest, pain with movement. 19:15 : Positive for decreased urine output, Negative for burning with urination, bladder incontinence. 19:15 Skin: Negative for cellulitis, rash. 19:15 Neuro: Negative for altered mental status, dizziness, headache, weakness. 19:15 All other systems are negative. Exam: 19:20 Constitutional: The patient appears in no acute distress, alert, awake, cp non-diaphoretic, non-toxic, well developed, well nourished. 19:20 Head/Face: Normocephalic, atraumatic. cp 19:20 Eyes: Periorbital structures: appear normal, Conjunctiva: normal, no exudate, no injection, Sclera: no appreciated abnormality, Lids and lashes: appear normal, bilaterally. 19:20 ENT: External ear(s): are unremarkable, Nose: is normal, Mouth: Lips: dry, Oral mucosa: moist, Posterior pharynx: Airway: no evidence of obstruction, patent. 19:20 Neck: ROM/movement: is normal, is supple, without pain, no range of motions limitations. 19:20 Chest/axilla: Inspection: normal, Palpation: is normal, no crepitus, no tenderness. 19:20 Cardiovascular: Rate: normal, Rhythm: regular, Edema: is not appreciated, JVD: is not appreciated. 19:20 Respiratory: the patient does not display signs of respiratory distress, Respirations: normal, no use of accessory muscles, no retractions, labored breathing, is not present, Breath sounds: are clear throughout, no decreased breath sounds, no stridor, no wheezing. 19:20 Abdomen/GI: Inspection: abdomen appears normal, Bowel sounds: active, all quadrants, Palpation: soft, in all quadrants, mild abdominal tenderness, in the right lower quadrant, rebound tenderness, is not appreciated, involuntary guarding, is not appreciated. 19:20 Back: CVA tenderness, is absent. 19:20 Skin: no rash present. 19:20 Neuro: Orientation: to person, place \T\ time. Mentation: is normal, Cerebellar function: is grossly normal, Motor: moves all fours, strength is normal, Sensation: is normal. 19:30 ECG was reviewed by the Attending Physician. cp Vital Signs: 15:19 BP 134 / 43; Pulse 64; Resp 16 S; Temp 97.7(TE); Pulse Ox 99% on R/A; Weight 69.85 kg ca1 (R); Height 5 ft. 4 in. (162.56 cm) (R); Pain 2/10; 19:12 BP 177 / 91; sp 19:12 Pulse 69; Resp 20; Pulse Ox 99% ; sp 15:19 Body Mass Index 26.43 (69.85 kg, 162.56 cm) ca1 MDM: 18:59 Patient medically screened. cp 20:30 Data reviewed: vital signs, nurses notes, lab test result(s), EKG, radiologic studies, cp plain films. 20:30 Counseling: I had a detailed discussion with the patient and/or guardian regarding: the cp historical points, exam findings, and any diagnostic results supporting the discharge/admit diagnosis, lab results. 20:48 Physician consultation: Noe Taylor MD was called at 20:45, was contacted at 20:45, regarding patient's condition, would like consultation with Dr. Laird, general surgery, for evaluation for dialysis catheter. 07/30 19:09 Order name: Basic Metabolic Panel cp 07/30 19:09 Order name: CBC with Diff cp 07/30 19:09 Order name: LFT's cp 07/30 19:09 Order name: Magnesium cp 07/30 19:09 Order name: NT PRO-BNP cp 07/30 19:09 Order name: PT-INR cp 07/30 19:09 Order name: Troponin (emerg Dept Use Only) cp 07/30 19:09 Order name: Urine Microscopic Only cp 07/30 19:09 Order name: Lipase cp 07/30 19:39 Order name: CBC with Automated Diff; Complete Time: 20:12 EDMS 07/30 20:12 Interpretation: Normal except: RBC 2.71; HGB 8.6; HCT 26.4; RDW 15.6. cp 07/30 19:39 Order name: Protime (+INR); Complete Time: 20:12 EDMS 07/30 19:50 Order name: Basic Metabolic Panel; Complete Time: 20:12 EDMS 07/30 20:13 Interpretation: Normal except: NA 146; CL 118; CO2 16; GLUC 146; BUN 83; CRE 3.36; GFR cp 13. 07/30 19:50 Order name: Liver (Hepatic) Function; Complete Time: 20:12 EDMS 07/30 19:50 Order name: Troponin (Emerg Dept Use Only); Complete Time: 20:12 EDMS 07/30 19:09 Order name: XRAY Chest (1 view) cp 07/30 19:09 Order name: EKG; Complete Time: 19:11 cp 07/30 19:09 Order name: Cardiac monitoring; Complete Time: 19:25 cp 07/30 19:09 Order name: EKG - Nurse/Tech; Complete Time: 19:25 cp 07/30 19:09 Order name: IV Saline Lock; Complete Time: 19:25 cp 07/30 19:09 Order name: Labs collected and sent; Complete Time: 19:25 cp 07/30 19:50 Order name: NT PRO-BNP; Complete Time: 20:12 EDMS 07/30 20:21 Interpretation: Abnormal: NT PRO-BNP 1289. cp 07/30 19:50 Order name: Magnesium; Complete Time: 20:12 EDMS 07/30 19:50 Order name: Lipase; Complete Time: 20:12 EDMS 07/30 20:13 Order name: CT Stone Protocol cp 07/30 20:17 Order name: RAD EDMS 07/30 20:43 Order name: Urine Dipstick--Ancillary (enter results); Complete Time: 21:54 ds4 07/30 22:56 Order name: SARS-COV-2 RT PCR EDMS 07/30 19:09 Order name: O2 Per Protocol; Complete Time: 19:25 cp 07/30 19:09 Order name: O2 Sat Monitoring; Complete Time: 19:25 cp 07/30 19:09 Order name: Urine Dipstick-Ancillary (obtain specimen); Complete Time: 20:42 cp EC:30 Rate is 71 beats/min. Rhythm is regular. IN interval is normal. QRS interval is normal. cp QT interval is normal. Interpreted by me. Reviewed by me. Administered Medications: 21:07 Drug: NS 0.9% 250 ml Route: IV; Rate: bolus; Site: right forearm; rr5 21:50 Follow up: Response: No adverse reaction; IV Status: Completed infusion; IV Intake: rr5 250ml 21:07 Drug: Lactated Ringers Solution 1000 ml Route: IV; Rate: 75 ml/hr; Site: right forearm; rr5 Disposition: 07/31 01:32 Co-signature as Attending Physician, Sven Osuna MD. rn Disposition: 07/30/20 21:00 Hospitalization ordered by Mak Ellison for Inpatient Admission. Preliminary diagnosis are Nausea and vomiting, Unspecified kidney failure. - Bed requested for Telemetry/MedSurg (Inpatient). - Status is Inpatient Admission. ea - Condition is Stable. - Problem is an ongoing problem. - Symptoms have improved. Signatures: Dispatcher [employer] EDMS Sven Osuna MD MD rn Je Blue, FISHING ROD ASSEMBLER-C FISHING ROD ASSEMBLER-Cla1 Lisandra Malhotra RN RN tl1 Tian Martínez, PA PA cp Ellen Alvarado RN RN ea Roque, Raymond, RN RN rr5 Ute Gustafson RN RN ca1 Corrections: (The following items were deleted from the chart) 07/30 21:56 21:22 CORONAVIRUS+MR.LAB.BRZ ordered. EDTX EDTX 23:22 21:00 Hospitalization Ordered by Mak Ellison DO for Inpatient Admission. Preliminary tl1 diagnosis is Nausea and vomiting; Unspecified kidney failure. Bed requested for Telemetry/MedSurg (Inpatient). Status is Inpatient Admission. Condition is Stable. Problem is an ongoing problem. Symptoms have improved. cp 23:40 23:22 07/30/2020 21:00 Hospitalization Ordered by Mak Ellison DO for Inpatient ea Admission. Preliminary diagnosis is Nausea and vomiting; Unspecified kidney failure. Bed requested for Telemetry/MedSurg (Inpatient). Status is Inpatient Admission. Condition is Stable. Problem is an ongoing problem. Symptoms have improved. tl1 07/31 21:41 07/30 20:48 Physician consultation: Noe Taylor MD was called at 20:45, was contacted cp at 20:45, regarding patient's condition, would like consultation with Dr. Laird, general surgery, for evaluation for pd dialysis catheter, cp
[2020-07-30 21:31] LABS: Urine Blood NEGATIVE (NEG); Urine Glucose TRACE (NEG); Urine Protein 2+ (NEG); Urine Specific Gravity 1.015 (1.005-1.030)
--- NOTE | 2020-07-30 22:20 | P.HP ---
Certification for Inpatient Patient admitted to: Inpatient With expected LOS: >2 Midnights Patient will require the following post-hospital care: None Practitioner: I am a practitioner with admitting privileges, knowledge of patient current condition, hospital course, and medical plan of care. Services: Services provided to patient in accordance with Admission requirements found in Title 42 Section 412.3 of the Code of Federal Regulations <Je Blue - Last Filed: 07/30/20 22:16> Patient History Date of Service: 07/30/20 Primary Care Provider: Dr. Taylor Reason for admission: Renal failure History of Present Illness: 70-year-old female history diabetes mellitus type 2, hypertension, anemia chronic disease, CKD 5 presents emergency department for vomiting. Patient reports that she has been nauseous over the course of the last month or so but today began having vomiting as well. Patient also some right lower quadrant pain. Patient was evaluated in the emergency department found to be in renal failure creatinine 3.36 GFR 13 BUN 83. Potassium 3.9. ED provider discuss case with nephrology, this is similar to patient's labs last month but at that time she had refused dialysis, patient is amendable to dialysis at this time, nephrology wishes for patient to be admitted to receive HD/PD catheter placement. Hemoglobin is 8.6 white blood cell count within normal limits, CT abdomen pelvis without contrast negative for any acute process. - Past Medical/Surgical History -: CKD 5 -: Diabetes mellitus type 2 -: Hypertension -: Anemia chronic disease -: Hysterectomy -: Left total knee Psychosocial/ Personal History: Patient lives with her daughter and is retired - Family History Mother -: Heart disease, Diabetes, Stroke Father -: Cancer Sister -: Cancer - Social History Smoking Status: Never smoker Alcohol use: No CD- Drugs: No Caffeine use: Yes Place of Residence: Home <Je Blue - Last Filed: 07/30/20 22:16> Date of Service: 07/31/20 <Mak Ellison - Last Filed: 07/31/20 11:57> Allergies chloramphenicol Allergy (Verified 07/31/20 02:25) Anaphylaxis morphine Allergy (Verified 07/31/20 02:25) Itching/Hives/Rash ondansetron [From Zofran] Allergy (Verified 07/31/20 02:25) Itching/Hives/Rash Penicillins Allergy (Verified 07/31/20 02:25) Anaphylaxis Review of Systems 10-point ROS is otherwise unremarkable Gastrointestinal: Nausea, Vomiting, Abdominal Pain <Je Blue - Last Filed: 07/30/20 22:16> Physical Examination - Physical Exam General: Alert, In no apparent distress HEENT: Atraumatic, PERRLA, Mucous membr. moist/pink Neck: Supple, 2+ carotid pulse no bruit, No LAD Respiratory: Clear to auscultation bilaterally, Normal air movement Cardiovascular: Regular rate/rhythm, Normal S1 S2 Gastrointestinal: Normal bowel sounds, No tenderness Musculoskeletal: No tenderness Integumentary: No rashes Neurological: Normal speech, Normal strength at 5/5 x4 extr, Normal tone, Normal affect - Studies Laboratory Data (last 24 hrs) 07/30/20 19:20: PT 13.0 H, INR 1.10 07/30/20 19:20: WBC 5.30, Hgb 8.6 L, Hct 26.4 L, Plt Count 177 07/30/20 19:20: Sodium 146 H, Potassium 3.9, BUN 83 H, Creatinine 3.36 H, Glucose 146 H, Magnesium 1.8, Total Bilirubin 0.4, AST 18, ALT 30, Alkaline Phosphatase 100, Lipase 303 <Je Blue - Last Filed: 07/30/20 22:16> - Studies Laboratory Data (last 24 hrs) 07/30/20 19:20: PT 13.0 H, INR 1.10 07/30/20 19:20: WBC 5.30, Hgb 8.6 L, Hct 26.4 L, Plt Count 177 07/30/20 19:20: Sodium 146 H, Potassium 3.9, BUN 83 H, Creatinine 3.36 H, Glucose 146 H, Magnesium 1.8, Total Bilirubin 0.4, AST 18, ALT 30, Alkaline Phosphatase 100, Lipase 303 <Mak Ellison - Last Filed: 07/31/20 11:57> Assessment and Plan - Plan Assessment CKD 5 Diabetes mellitus type 2 Hypertension Anemia of chronic disease Plan CKD 5: Case discussed at length with the patient and the nephrology, will need to go forward with dialysis. Consult for general surgery in place, will likely receive HD/PD catheter on Thursday. Nephrology states plan is for acute hemodialysis while in the hospital followed by long-term peritoneal dialysis at home as a bridge to hopefully renal transplant. Heparin 5000 units subcutaneous twice daily for DVT prophylaxis. Diabetes mellitus type 2: A.c. HS Accu-Cheks, sliding scale insulin therapy, A1c 1 month appear reported to be around 7. Hypertension: Obtain and continue home medications as appropriate Anemia of chronic disease: Transfuse to hemoglobin less than 7, possible surgical intervention planned on Thursday if hemoglobin drops below 8 will need to discuss this with General Surgery for possible transfusion. Discharge Plan: Home Plan to discharge in: Greater than 2 days - Advance Directives Does patient have a Living Will: No Does patient have a Durable POA for Healthcare: No - Code Status/Comfort Care Code Status Assessed: Yes (FC) Critical Care: No Time Spent Managing Pts Care (In Minutes): 55 <Je Blue - Last Filed: 07/30/20 22:16> - Plan Case discussed in detail with nurse practitioner. Agree with plan of care. Please see progress note for details. <Mak Ellison - Last Filed: 07/31/20 11:57>
[2020-07-31] MEDS ORDERED: Ringers Lactate 1,000 ML IV SCH (00:06)
[2020-07-31] MEDS ORDERED: ONDANSETRON 4 MG/2 ML VIAL IV PRN (00:06)
[2020-07-31] MEDS ORDERED: ACETAMINOPHEN 500 MG TAB PO PRN (00:06)
[2020-07-31 00:53] VITALS: BMI 25.7
[2020-07-31 05:21] LABS: Absolute Lymphocytes (CBC) 0.9 K/uL (0.7-4.9); Basophils % 0.5 % (0-1.3); Hematocrit 23.7 % (36.0-45.0); Lymphocytes % 19.7 % (15.3-44.8); MPV 8.6 fL (7.6-11.3); RBC Red Blood Cell Count 2.42 M/uL (3.86-4.86)
[2020-07-31 05:24] LABS: Protime INR 1.13
[2020-07-31] MEDS ORDERED: PROMETHAZINE INJ 25 MG/ML AMP IV PRN (05:37)
[2020-07-31 05:51] LABS: Potassium 3.5 mmol/L (3.5-5.1); Thyroid Stimulating Hormone 3.48 uIU/mL (0.360-3.740)
[2020-07-31] MEDS: INSULIN -REGULAR HUMAN 50 UNIT/0.5 ML ML SQ SCH ×4 (07:30→21:00)
[2020-07-31] MEDS ORDERED: INFLUENZA VACCINE (for 3y+) 0.5 ML DOSE IMVAC ONE (08:00)
[2020-07-31] MEDS: HYDRALAZINE HCL 25 MG TABLET PO SCH ×3 (09:00→21:29)
[2020-07-31] MEDS: ISOSORBIDE MONO SR 30 MG TAB PO SCH (09:00)
[2020-07-31] MEDS: carvediloL 25 MG TAB PO SCH ×2 (09:00→21:29)
[2020-07-31] MEDS: HEPARIN 5000 UNIT/ML 1 ML VIAL SQ SCH ×2 (09:00→21:00)
[2020-07-31] MEDS: VITAMIN D 5,000 UNIT CAP PO SCH (09:00)
[2020-07-31] MEDS: KETOROLAC OPTHALMIC 5 ML BOT OPTH SCH ×2 (09:01→21:00)
[2020-07-31] MEDS: DIPHENOX/ATROP SULF 1 TAB PO PRN ×2 (09:03→11:47)
[2020-07-31 11:42] LABS: C.diff Antigen/Toxin Ag neg : Tox neg (NEG : NEG)
--- NOTE | 2020-07-31 12:02 | P.PN ---
Subjective Date of Service: 07/31/20 Primary Care Provider: Dr. Taylor Chief Complaint: Renal failure Subjective: Doing well (reports some diarrhea off and on over the last couple of weeks. she was on Cipro recently for UTI. C diff toxin negative.) Physical Examination - Vital Signs Temperature: 97.7 F Blood Pressure: 181/76 Pulse: 66 Respirations: 20 Pulse Ox (%): 98 - Physical Exam General: Alert, In no apparent distress, Oriented x3, Cooperative HEENT: Atraumatic Neck: Supple Respiratory: Clear to auscultation bilaterally, Normal air movement Cardiovascular: Normal pulses, Regular rate/rhythm Gastrointestinal: Normal bowel sounds, No masses, No rebound, No guarding Neurological: Normal speech, Normal strength at 5/5 x4 extr, Normal tone, Normal affect - Studies Laboratory Data (last 24 hrs) 07/30/20 19:20: PT 13.0 H, INR 1.10 07/30/20 19:20: WBC 5.30, Hgb 8.6 L, Hct 26.4 L, Plt Count 177 07/30/20 19:20: Sodium 146 H, Potassium 3.9, BUN 83 H, Creatinine 3.36 H, Glucose 146 H, Magnesium 1.8, Total Bilirubin 0.4, AST 18, ALT 30, Alkaline Phosphatase 100, Lipase 303 Medications List Reviewed: Yes Assessment & Plan Discharge Plan: Home Plan to discharge in: Greater than 2 days Physician Review Additional Text: Impression: Nausea, vomiting secondary to acute on chronic renal failure stage 5 now end- stage renal disease requiring dialysis Diarrhea likely viral Diabetes mellitus type 2 Hypertension Anemia of chronic disease Plan Nausea, vomiting secondary to acute on chronic renal failure stage 5 now end- stage renal disease requiring dialysis: Case discussed with nephrology. Patient now requiring dialysis. Patient with end-stage renal disease. Surgery will place hemodialysis catheter and PD catheter tomorrow. Nephrology plans to initiate dialysis. Hepatitis panel obtained. Continue with medications. Lasix currently on hold. Continue with recommendations. Social work to help with outpatient dialysis at discharge. Diarrhea likely viral: Will start lactobacillus. Provide medication as needed. C diff toxin negative. Will send stool for evaluation. Diabetes mellitus type 2: Continue Accu-Cheks. Sliding scale in place. Hypertension: Continue with medication Anemia of chronic disease: Monitor hemoglobin. Transfuse if less than 7.0 Time Spent Managing Pts Care (In Minutes): 55
--- NOTE | 2020-07-31 12:55 | EKG ---
Test Date: 2020-07-30 Test Time: 19:22:10 Can Closing Machine Operator: ANDREZ MEASUREMENT RESULTS: Intervals: Rate: 71 CO: 162 QRSD: 98 QT: 424 QTc: 460 [place]: P: 63 CO: 162 QRS: 40 T: 36 INTERPRETIVE STATEMENTS: Normal sinus rhythm Normal ECG Compared to ECG 10/17/2019 15:12:49 No significant changes Electronically Signed On 07-31-20 12:53:12 PROPERTY MANAGER by Martínez Mccollum
--- NOTE | 2020-07-31 16:04 | RAD REPORT ---
EXAM DESCRIPTION: CT ABDOMEN AND PELVIS WITHOUT CONTRAST CLINICAL HISTORY: Right lower quadrant pain COMPARISON: 01/13/2019 TECHNIQUE: CT of the abdomen and pelvis without IV contrast. Evaluation of the solid organs and vasc ulature is suboptimal due to lack of IV contrast. FINDINGS: Lung Bases: The visualized lung bases are clear. Bones: Posterior diane and screw fixation with discectomy at L4-S1. Multilevel endplate spondylosis. No definite hardware failure identified. Right L5 and bilateral S1 pedicular screws traverse the anteri or wall of the vertebrae at these levels. Degenerative joint space narrowing of the hips. Abdomen: Liver: The liver has normal size and density. Gallbladder: High density material in the gallbladder lumen likely represents gallstones. No definite pericholecystic inflammatory change. Spleen, Pancreas, and Adrenal Glands: The spleen, pancreas, and adrenal glands are unremarkable. Kidneys: The kidneys have normal size without evidence of hydronephrosis. No obstructing ureteral wilfredo culi. Mild bilateral nonspecific perinephric fat stranding. Vasculature: Aortoiliac atherosclerosis. IVC is unremarkable. Stomach: The stomach and duodenum have normal course. Other: No free intraperitoneal air. No free fluid or lymphadenopathy. Pelvis: Bladder: Urinary bladder is unremarkable. Bowel: No dilated loops of large or small bowel. Appendix: Normal appendix. Pelvis: Prior hysterectomy. IMPRESSION: 1. No acute inflammatory or obstructive process identified. 2. Cholelithiasis without other CT evidence of acute cholecystitis. This exam was performed according to our departmental dose-optimization program, which includes autom ated exposure control, adjustment of the mA and/or kV according to patient size and/or use of iterati ve reconstruction technique. Electronically signed by: Shawn Yates 07/30/2020 10:07 PM DIRECTOR OF LITIGATION Due to temporary technical issues with the PACS/Fluency reporting system, reports are being signed by the in house radiologists without review as a courtesy to insure prompt reporting. The interpreting radiologist is fully responsible for the content of the report.
--- NOTE | 2020-07-31 17:48 | CON ---
Date of Consultation: 07/31/2020 Brief History Of Present Illness: The patient is a 70-year-old female with a past medical history of hypertension, diabetes, anemia of chronic disease, CKD stage 5, presents to the emergency department with nausea, vomiting, and diarrhea. She had been feeling nauseous over the course of the past month ago or so, but began having some increased vomiting as of late as such along with some ri ght lower quadrant abdominal pain. She was decided to come to the emergency room with the above-stat ed complaints. She was evaluated in the emergency department, found to be in renal failure with a cr eatinine of 3.36 and her GFR was 13, BUN 83, potassium 3.9. She was seen by Dr. Taylor at his nephrol ogy clinic, who had been discussing the likely long-term need for hemodialysis as this patient's ann l function continued to worsen over time. As such, I am consulted to see the patient for the above-s tated issues. At the time of my examination, the patient complains of some vague mild abdominal pain predominantly in the bilateral lower quadrants. She has had persistent diarrhea and abdominal cramp ing and has some nausea, but has not vomited today. Past Medical History: As described above, CKD stage 5, diabetes, hypertension, anemia of chronic dis ease. Past Surgical History: Includes a hysterectomy, left total knee surgery, and nasal skin surgery, pos terior spinal lumbar fusion. Social History: She lives with her daughter, is retired. She denies smoking, alcohol, recreational drug use. Allergies: TO CHLORAMPHENICOL, MORPHINE, ZOFRAN, AND PENICILLIN. Home Medications: Included atorvastatin, Coreg, vitamin D3, Cardura, Retacrit, Lasix, , hy dralazine, isosorbide mononitrate, ketorolac ophthalmic Review of Systems: Ten-point review of systems other than HPI, denies. Physical Examination: Vital Signs: Blood pressure of 181/76, pulse is 66, respiratory rate 28, temperature was 97.7, SpO2 99% on room air. General: At the time of my examination; she is awake, alert, oriented. Psychiatric: She is appropriate, conversive. HEENT: She is normocephalic. Her sclerae anicteric. Mucous membranes are moist. Oropharynx clear. Neck: Supple without JVD. Chest: Normal expansion and excursion. Cardiovascular: Regular rate and rhythm. Pulmonary: Clear to auscultation bilaterally. Abdomen: Soft with mild global tenderness to palpation, worse in the bilateral lower quadrants. No rebound. No guarding. No focal peritonitis. Well-healed surgical scar from her hysterectomy is hattie dent. Skin: Warm and dry. Laboratory Data: Reveals a white blood cell count of 4.7, hemoglobin 7.7, her hematocrit 23.7, plate let count is 159. Her neutrophils were normal at 68%. Her PT was 13.4, INR 1.13. Sodium 145, potas sium 3.5, chloride 120, carbon dioxide 15, BUN 81, creatinine 3.5, glucose is 76, her calcium was ___ , magnesium was 1.8, total bilirubin 0.4, direct component 0.1, AST is 18, ALT 30, alkaline ph osphatase is 100. Her lipase was 303 on admission. TSH was 3.48, free T4 was 0.93. Her UA showed o nly 2+ protein, otherwise negative. C. diff toxin was negative. COVID-19 test was negative. She ad ditionally had imaging, which included a CT of the abdomen which was officially read as no acute infl ammatory obstructive process is identified, cholelithiasis without other CT evidence of acute cholecy stitis. Assessment And Plan: 1.This is a 70-year-old female, who comes in with multiple medical problems as described, in need fo r long-term dialysis. The patient was originally planning for a combination of hemodialysis catheter placement as well as possible peritoneal dialysis catheter placement; however, given her abdominal c omplaints at this point, I believe we should withhold proceeding with peritoneal dialysis at this lupe e until her gastrointestinal symptoms have improved or resolved. As such, I will continue to follow; however, I recommend the patient have a tunneled hemodialysis catheter placed tomorrow. I have expl ained the risks, benefits, and alternatives of this plan including, but not limited to bleeding, infe ction, damage to surrounding tissue, need for further operations, pneumothorax, need for more procedu res. The patient agrees to proceed as indicated. The patient will be n.p.o. after midnight in prepa ration for surgery tomorrow and hemodialysis to ensure following that. 2.I have discussed planning for peritoneal dialysis after her abdominal symptoms have resolved; vickie barkley, this can be done as an outpatient. The patient is amenable to the above stated plan and agrees to proceed. Thank you for this interesting consult. JUAN/MOOSE Voice ID: [id number] Report ID: [id number]
[2020-07-31] MEDS: NEPRO SHAKE 237 ML CAN PO SCH (21:00)
[2020-07-31] MEDS ORDERED: DOXAZOSIN 2 MG TAB PO SCH (21:00)
--- NOTE | 2020-07-31 21:09 | P.CNS ---
Date of Consult: 07/31/20 Reason for Consult: NOEMI/ CKD Requesting Physician: Mak Ellison Primary Care Provider: Dr. Taylor Chief Complaint: Renal failure History of Present Illness: 70-year-old female history diabetes mellitus type 2, hypertension, anemia chronic disease, CKD 5 presents emergency department for vomiting. Patient reports that she has been nauseous over the course of the last month or so but today began having vomiting as well. Patient also some right lower quadrant pain. Patient was evaluated in the emergency department found to be in renal failure creatinine 3.36 GFR 13 BUN 83. Potassium 3.9. ED provider discuss case with nephrology, this is similar to patient's labs last month but at that time she had refused dialysis, patient is amendable to dialysis at this time, nephrology wishes for patient to be admitted to receive HD/PD catheter placement. Hemoglobin is 8.6 white blood cell count within normal limits, CT abdomen pelvis without contrast negative for any acute process. 19:07 This 70 yrs old Female presents to ER via Ambulatory with complaints of cp Nausea, Kidney Problem. 19:07 The patient presents to the emergency department with nausea, that is mild, vomiting, cp that is intermittent. Onset: The symptoms/episode began/occurred last week. Possible causes: worsening kidney failure. Allergies chloramphenicol Allergy (Verified 07/31/20 02:25) Anaphylaxis morphine Allergy (Verified 07/31/20 02:25) Itching/Hives/Rash ondansetron [From Zofran] Allergy (Verified 07/31/20 02:25) Itching/Hives/Rash Penicillins Allergy (Verified 07/31/20 02:25) Anaphylaxis Home medications list reviewed: Yes Home Medications: Atorvastatin Calcium 20 mg PO BEDTIME 07/31/20 Carvedilol [Coreg] 25 mg PO BID 07/31/20 Cholecalciferol (Vitamin D3) [Vitamin D3] 5,000 unit PO DAILY 07/31/20 Doxazosin [Cardura] 2 mg PO BEDTIME 07/31/20 Epoetin [place]-Epbx [Retacrit] 40,000 unit SQ SEECOM 07/31/20 Furosemide [Lasix] 20 mg PO DAILY PRN 07/31/20 Glimepiride 2 mg PO BID 07/31/20 Hydralazine HCl 100 mg PO TID 02/02/21 Isosorbide Mononitrate [Isosorbide Mononitrate ER] 30 mg PO DAILY 07/31/20 Ketorolac Opth [Acular 0.5% Opth Drops] 1 drop OPTH BID 07/31/20 - Past Medical/Surgical History Diabetic: Yes -: CKD 5 -: Diabetes mellitus type 2 -: Hypertension -: Anemia chronic disease -: Hysterectomy -: Left total knee -: back surgery Psychosocial/ Personal History: Patient lives with her daughter and is retired - Family History Mother Medical History: Heart disease, Diabetes, Stroke Father Medical History: Cancer Sister Medical History: Cancer - Social History Alcohol use: No CD- Drugs: No Caffeine use: Yes Place of Residence: Home Review of Systems 10-point ROS is otherwise unremarkable General: Weakness, Malaise Cardiovascular: Edema Gastrointestinal: Diarrhea Neurological: Weakness Physical Examination Temp Pulse Resp BP Pulse Ox 97.6 F 71 20 148/60 H 97 07/31/20 16:00 07/31/20 16:00 07/31/20 16:00 07/31/20 16:00 07/31/20 16:00 General: Oriented x3, Cooperative, Mild distress HEENT: Atraumatic Neck: Supple Respiratory: Clear to auscultation bilaterally Cardiovascular: Regular rate/rhythm, Edema Gastrointestinal: Soft and benign, Non-distended Musculoskeletal: No clubbing, No contractures Integumentary: No rashes, No cyanosis Neurological: Normal speech Blood work reviewed in the chart. Imagings Data: CT ABDOMEN AND PELVIS WITHOUT CONTRAST CLINICAL HISTORY: Right lower quadrant pain COMPARISON: 01/13/2019 TECHNIQUE: CT of the abdomen and pelvis without IV contrast. Evaluation of the solid organs and vasculature is suboptimal due to lack of IV contrast. FINDINGS: Lung Bases: The visualized lung bases are clear. Bones: Posterior diane and screw fixation with discectomy at L4-S1. Multilevel endplate spondylosis. No definite hardware failure identified. Right L5 and bilateral S1 pedicular screws traverse the anterior wall of the vertebrae at these levels. Degenerative joint space narrowing of the hips. Abdomen: Liver: The liver has normal size and density. Gallbladder: High density material in the gallbladder lumen likely represents gallstones. No definite pericholecystic inflammatory change. Spleen, Pancreas, and Adrenal Glands: The spleen, pancreas, and adrenal glands are unremarkable. Kidneys: The kidneys have normal size without evidence of hydronephrosis. No obstructing ureteral calculi. Mild bilateral nonspecific perinephric fat stranding. Vasculature: Aortoiliac atherosclerosis. IVC is unremarkable. Stomach: The stomach and duodenum have normal course. Other: No free intraperitoneal air. No free fluid or lymphadenopathy. Pelvis: Bladder: Urinary bladder is unremarkable. Bowel: No dilated loops of large or small bowel. Appendix: Normal appendix. Pelvis: Prior hysterectomy. IMPRESSION: 1. No acute inflammatory or obstructive process identified. 2. Cholelithiasis without other CT evidence of acute cholecystitis. This exam was performed according to our departmental dose-optimization program, which includes automated exposure control, adjustment of the mA and/or kV according to patient size and/or use of iterative reconstruction technique. EXAM DESCRIPTION: RAD - Chest Single View - 07/30/2020 7:59 pm CLINICAL HISTORY: nausea/vomiting, shortness of breath COMPARISON: Portable September 2019 TECHNIQUE: AP portable chest image was obtained 07/30/2020 7:59 pm . FINDINGS: Lung volumes are low accentuating interstitial pattern. This potentially masks early edema or infiltrate. No focal mass or consolidation. No significant failure or volume overload. Heart and vasculature are normal. No measurable pleural effusion and no pneumothorax. No acute bony abnormality seen. No acute aortic findings suspected. IMPRESSION: Limited shallow inspiration exam without acute cardiopulmonary finding. Conclusions/Impression: A/ NOEMI vs progressive CKD suspicious for ESRD Proteinuria Hypokalemia Acidosis Hypocalcemia HTN with CKD LE Edema DM II with CKD Anemia in chronic illness P/ Continue current POC and Medications. Surgery consult for HD CVC placement. Plan to initiate HD soon. Increase Doxazosin BID. Start oral bicarb. Start calcitriol. Adjust Retacrit dose. DC IVF. Check HBV panel. Start immodium prn for diarrhea. No NSAIDs. AM labs. Daily weight. Thank you kindly for the consultation.
[2020-07-31] MEDS ORDERED: MANNITOL 25% 12.5 GM/50 ML VIAL IV PRN (21:26)
[2020-07-31] MEDS ORDERED: NA CHLORIDE 0.9% 1,000 ML IV PRN (21:26)
[2020-07-31] MEDS: ATORVASTATIN 20 MG TAB PO SCH (21:29)
[2020-07-31] MEDS: LACTOBACILLUS/ACIDOPHILUS TAB PO SCH (21:29)
[2020-07-31] MEDS ORDERED: ALBUMIN HUMAN 25% 50 ML IV SCH (22:00)
[2020-08-01 05:34] LABS: Absolute Lymphocytes (CBC) 0.8 K/uL (0.7-4.9); Basophils % 0.7 % (0-1.3); Hematocrit 23.4 % (36.0-45.0); Lymphocytes % 20.9 % (15.3-44.8); MPV 8.9 fL (7.6-11.3); RBC Red Blood Cell Count 2.39 M/uL (3.86-4.86)
[2020-08-01 06:08] LABS: Phosphorus 5.2 mg/dL (2.5-4.9); Potassium 3.5 mmol/L (3.5-5.1); Uric Acid 8.6 mg/dL (2.6-6.0)
[2020-08-01] MEDS: INSULIN -REGULAR HUMAN 50 UNIT/0.5 ML ML SQ SCH ×4 (07:30→21:56)
[2020-08-01] MEDS: SODIUM BICARB 325 MG TAB PO SCH ×3 (08:00→16:59)
[2020-08-01] MEDS: PROMETHAZINE INJ 25 MG/ML AMP ONE ×2 (08:14→08:15)
[2020-08-01] MEDS: carvediloL 25 MG TAB PO SCH ×2 (08:16→21:52)
[2020-08-01] MEDS: HYDRALAZINE HCL 25 MG TABLET PO SCH ×4 (08:16→21:52)
[2020-08-01] MEDS: DOXAZOSIN 2 MG TAB PO SCH ×2 (08:16→21:55)
[2020-08-01] MEDS: HEPARIN 5000 UNIT/ML 1 ML VIAL SQ SCH ×2 (08:17→21:56)
[2020-08-01] MEDS: NEPRO SHAKE 237 ML CAN PO SCH ×2 (08:17→21:58)
[2020-08-01] MEDS: LACTOBACILLUS/ACIDOPHILUS TAB PO SCH ×2 (08:17→21:52)
[2020-08-01] MEDS ORDERED: NA CHLORIDE 0.9% 500 ML ONE (08:23)
[2020-08-01] MEDS: KETOROLAC OPTHALMIC 5 ML BOT OPTH SCH ×2 (09:00→21:00)
[2020-08-01] MEDS: ISOSORBIDE MONO SR 30 MG TAB PO SCH (09:00)
--- NOTE | 2020-08-01 09:58 | P.PN ---
Subjective Date of Service: 08/01/20 Primary Care Provider: Dr. Taylor Chief Complaint: Renal failure Subjective: Improving, Doing well, Other (Patient doing well this morning. No complaints noted. No further diarrhea noted.) Physical Examination - Vital Signs Temperature: 98.1 F Blood Pressure: 124/58 Pulse: 66 Respirations: 16 Pulse Ox (%): 98 - Physical Exam General: Alert, Oriented x3, Cooperative HEENT: Atraumatic Neck: Supple Respiratory: Clear to auscultation bilaterally, Normal air movement Cardiovascular: Normal pulses, Regular rate/rhythm Gastrointestinal: Normal bowel sounds, No tenderness, No masses, No rebound, No guarding Neurological: Normal speech, Normal strength at 5/5 x4 extr, Normal tone, Normal affect - Studies Medications List Reviewed: Yes Assessment & Plan Discharge Plan: Home Plan to discharge in: Greater than 2 days Physician Review Additional Text: Impression: Nausea, vomiting secondary to acute on chronic renal failure stage 5 now end- stage renal disease requiring dialysis Diarrhea likely viral Diabetes mellitus type 2 Hypertension Hyperlipidemia Anemia of chronic disease Plan Nausea, vomiting secondary to acute on chronic renal failure stage 5 now end- stage renal disease requiring dialysis: Case discussed with nephrology yesterday. Case also discuss with surgery. Surgery plans for hemodialysis catheter. PD catheter will be delayed as an outpatient due to recent diarrhea. Diarrhea has resolved. C diff culture negative. Continue current medications including sodium bicarb. Patient will likely require dialysis after catheter placement today. Continue with Nephrology recommendations. Hepatitis panel obtained. Social work to work on approval for outpatient dialysis. Anticipate this process to be prolonged. Hopefully patient can be discharged later this week once approval has been made. Diarrhea likely viral: Patient on a lactobacillus. Continue to provide medication as needed. C diff toxin negative. Will send stool for evaluation. Diarrhea are resolved as reported by patient Diabetes mellitus type 2: Continue Accu-Cheks. Sliding scale in place. Hypertension: Continue with medication Hyperlipidemia: Continue medication Anemia of chronic disease: Monitor hemoglobin. Transfuse if less than 7.0. Continue Procrit Time Spent Managing Pts Care (In Minutes): 55
[2020-08-01] MEDS ORDERED: propofoL 200 MG/20 ML VIAL IV ONE ×2 (10:18→10:51)
[2020-08-01] MEDS ORDERED: MIDAZOLAM HCL 2 MG/2 ML INJ ONE (10:18)
[2020-08-01] MEDS ORDERED: LIDOCAINE 1% MPF 5 ML VIAL ONE (10:18)
[2020-08-01] MEDS ORDERED: FENTANYL CITR 100 MCG/2 ML ONE (10:18)
[2020-08-01] MEDS ORDERED: NS 0.9% VIAL 30 ML ONE (10:25)
[2020-08-01] MEDS ORDERED: HEPARIN 5000 UNIT/ML 1 ML VIAL ONE (10:25)
[2020-08-01] MEDS ORDERED: CLINDAMYCIN INJ 300 MG in NA CHLORIDE 0.9% 50 ML IV ONE ×2 (10:25→10:30)
[2020-08-01] MEDS ORDERED: BUPIVACAINE 0.25% PF 30 ML VIAL ONE (10:29)
[2020-08-01] MEDS ORDERED: LIDOCAINE JELLY 2%- 5 ML TUBE ONE (11:00)
[2020-08-01] MEDS ORDERED: dexAMETHasone 10 MG/ML VIAL ONE (11:18)
[2020-08-01] MEDS ORDERED: NS 0.9% VIAL 20 ML ONE (11:30)
[2020-08-01] MEDS ORDERED: NS 0.9% VIAL 10 ML ONE ×2 (11:30)
--- NOTE | 2020-08-01 11:32 | P.OP ---
Preoperative diagnosis: End Stage Renal Disease Postoperative diagnosis: End Stage Renal Disease Primary procedure: Placement of Tunnelled Hemodialysis Catheter Secondary procedure: Flouroscopy and ultrasound guidance used Anesthesia: GETA + Local Estimated blood loss: <5cc Specimen: None Findings: Dark, non-pulsatile blood returned Complications: None Implants: 24cm Hemosplit catheter Transferred to: Recovery Room Condition: Good
[2020-08-01] MEDS ORDERED: NA CHLORIDE 0.9% 50 ML ONE (11:35)
--- NOTE | 2020-08-01 11:51 | RAD REPORT ---
EXAM DESCRIPTION: RAD - Fluoroscopy >1 Hr - 08/01/2020 11:40 am CLINICAL HISTORY: HEMODIALYSISCATH IN OR2 WITH KOVACEV COMPARISON: Urinary Bladder dated 07/08/2018 FINDINGS: Fluoroscopy time 0.2 minutes.
--- NOTE | 2020-08-01 12:04 | RAD REPORT ---
EXAM DESCRIPTION: RAD - Chest Single View - 08/01/2020 11:51 am CLINICAL HISTORY: RIGHT IJ hemodialysis catheter Chest pain. COMPARISON: Chest Single View dated 07/30/2020; Chest Single View dated 10/17/2019 FINDINGS: Portable technique limits examination quality. Right-sided venous catheter is present with its tip in the SVC. No pneumothorax is present. Mild inte rstitial pulmonary edema is seen. The heart is mildly enlarged. IMPRESSION: No postprocedure pneumothorax.
--- NOTE | 2020-08-01 12:36 | OP ---
Date of Procedure: 08/01/2020 Surgeon: Tyrell Laird MD, Preoperative Diagnosis: End-stage renal disease. Postoperative Diagnosis: End-stage renal disease. Procedure Performed: Placement of tunneled hemodialysis catheter in the right internal jugular vein using fluoroscopy and ultrasound guidance. Anesthesia: General endotracheal plus local with 0.25% Marcaine. Estimated Blood Loss: Less than 5 mL. Specimen: None. Findings: Dark nonpulsatile blood returned. Ultrasound confirmed position of the introduction and f luoroscopy confirmed position of the catheter. The catheter did have a bit of a kink right at the in sertion site from the tunneling device which decreased flow somewhat but was resolved by the end of t he case. Complications: None. Implants: 24 cm HemoSplit catheter. The patient transferred to recovery room in good condition. Procedure In Detail: After informed consent was obtained, the patient was brought to the operating r oom, prepped in the usual sterile fashion after adequate anesthesia achieved. The patient was placed in steep Trendelenburg position. Using ultrasound guidance, I cannulated the right internal jugular vein on the first attempt using the microintroducer set. Dark red nonpulsatile blood was returned, confirmed position with ultrasound guidance. At this point, a microwire was advanced. Fluoroscopy c onfirmed the wire going to the SVC. A small ulisses incision was made over the insertion site after the needle was removed and the microintroducer sheath was placed at this point, the standard wire was ad vanced through the introducer sheath. After the microwire was removed, wire was called from the micr owire at this point and fluoroscopy confirmed the position in the SVC once again. At this point, I f ound a spot on the chest wall and anesthetized the tract appropriately approximately 5 cm inferior to the clavicle, tunneling tract over the clavicle, I then brought out through the insertion site after enlarging the incision with a 15 blade. At this point, the catheter was brought around and position ed to be at the confluence of the SVC using fluoroscopic guidance. At this point, I performed sequen tial dilatation of the jugular vein and placed the catheter into the internal jugular vein. One of t he ports flushed easily. The other however had decreased flow. I discovered using fluoroscopy that it was due to a kink at the insertion site from the tunneling device. Essentially, it was too acute of an angle for the catheter and as such a kink is somewhat. Therefore, I opened up the incision sli ghtly using a 15 blade and dissected the tunneling tract slightly laterally to allow for more lateral soft course of the catheter. At this point the catheter functioned well. I then flushed it with sa line and pulled back blood. Dark red, non-pulsatile blood return from both ports and flushed quite e asily. At this point, I packed both of these with heparin super flush 2 cc per port. After flushing them with saline, I then secured the catheter to the chest wall and irrigated the incisions, closed incisions with interrupted 3-0 nylon suture and secured the catheter with the same set of 3-0 nylon s utures and sterile dressing placed over top. The patient tolerated the procedure well without compli cation and transferred back in good condition. All counts were correct at the end of the case. A st at chest x-ray will be performed in the recovery room. JUAN/MOOSE Voice ID: [id number] Report ID: [id number]
[2020-08-01] MEDS: VITAMIN D 5,000 UNIT CAP PO SCH (12:51)
[2020-08-01] MEDS: CALCITROL 0.25 MCG CAP PO SCH (12:51)
[2020-08-01] MEDS ORDERED: EPOETIN 4,000 UNIT/ML VIAL SQ SCH (17:00)
--- NOTE | 2020-08-01 19:48 | P.PN ---
Date of Service: 08/01/20 Vital Signs Temp Pulse Resp BP Pulse Ox 97.2 F 62 16 184/75 H 98 08/01/20 16:00 08/01/20 16:00 08/01/20 16:00 08/01/20 16:00 08/01/20 16:00 Medications Acetaminophen (Acetaminophen 500 Mg Tab) 500 mg PO Q4HP PRN PRN Reason: TEMP > 100' F Stop: 08/30/20 00:07 Last Admin: 08/01/20 17:44 Dose: 500 mg Documented by: Atorvastatin Calcium (Atorvastatin 20 Mg Tab) 20 mg PO BEDTIME [facility]A Stop: 08/30/20 21:01 Last Admin: 07/31/20 21:29 Dose: 20 mg Documented by: Calcitriol (Calcitrol 0.25 Mcg Cap) 0.5 mcg PO DAILY [facility] Stop: 08/31/20 09:01 Last Admin: 08/01/20 12:51 Dose: 0.5 mcg Documented by: Carvedilol (Carvedilol 25 Mg Tab) 25 mg PO BID [facility] Stop: 08/30/20 09:01 Last Admin: 08/01/20 08:16 Dose: Not Given Documented by: Cholecalciferol (Vitamin D 5,000 Unit Cap) 5,000 unit PO DAILY [facility] Stop: 08/30/20 09:01 Last Admin: 08/01/20 12:51 Dose: 5,000 unit Documented by: Diphenoxylate HCl/Atropine (Diphenox/Atrop Sulf 1 Tab) 1 tab PO QID PRN PRN Reason: DIARRHEA Stop: 08/30/20 08:22 Last Admin: 07/31/20 11:47 Dose: 1 tab Documented by: Doxazosin Mesylate (Doxazosin 2 Mg Tab) 2 mg PO BID [facility] Stop: 08/31/20 09:01 Last Admin: 08/01/20 08:16 Dose: Not Given Documented by: Enteral Nutritional Formula (Nepro Shake 237 Ml Can) 237 ml PO BID [facility] Stop: 08/30/20 21:01 Last Admin: 08/01/20 08:17 Dose: Not Given Documented by: Epoetin [place] (Epoetin 4,000 Unit/Ml Vial) 4,000 unit SQ M,W,F [facility] Stop: 08/31/20 17:01 Last Admin: 08/01/20 16:59 Dose: 4,000 unit Documented by: Heparin Sodium (Porcine) (Heparin 5000 Unit/Ml 1 Ml Vial) 5,000 unit SQ Q12HR [facility] Stop: 08/30/20 09:01 Last Admin: 08/01/20 08:17 Dose: Not Given Documented by: Heparin Sodium (Porcine) (Heparin 1,000 Unit/Ml Vial) 6,000 unit IV EVERY HD PRN PRN Reason: AFTER EACH Stop: 08/30/20 21:27 Hydralazine HCl (Hydralazine Hcl 25 Mg Tablet) 100 mg PO TID [facility] Stop: 08/30/20 09:01 Last Admin: 08/01/20 17:37 Dose: 100 mg Documented by: Albumin Human (Albumin 25%) 50 mls @ 100 mls/hr IV EVERY HD [facility] Stop: 08/30/20 22:01 Insulin Human Regular (Insulin -Regular Human 50 Unit/0.5 Ml Ml) 0 unit SQ ACHS [facility]; Protocol Stop: 08/30/20 07:31 Last Admin: 08/01/20 16:27 Dose: Not Given Documented by: Isosorbide Mononitrate (Isosorbide [place] Sr 30 Mg Tab) 30 mg PO DAILY [facility] Stop: 08/30/20 09:01 Last Admin: 08/01/20 09:00 Dose: Not Given Documented by: Ketorolac Tromethamine (Ketorolac Opthalmic 5 Ml Bot) 1 drops OPTH BID [facility] Stop: 08/30/20 09:01 Last Admin: 08/01/20 09:00 Dose: Not Given Documented by: Lactobacillus Acidoph/[place] (Lactobacillus/Acidophilus Tab) 1 tab PO BID [facility] Stop: 08/30/20 21:01 Last Admin: 08/01/20 08:17 Dose: Not Given Documented by: Mannitol (Mannitol 25% 12.5 Gm/50 Ml Vial) 12.5 gm IV EVERY HD PRN PRN Reason: Titrate to SBP (MUST DEFINE) Stop: 08/30/20 21:27 Promethazine HCl (Promethazine Inj 25 Mg/Ml Amp) 12.5 mg IV Q6H PRN PRN Reason: NAUSEA / VOMITING Stop: 08/30/20 05:38 Sodium Bicarbonate (Sodium Bicarb 325 Mg Tab) 650 mg PO TIDWM [facility] Stop: 08/31/20 08:01 Last Admin: 08/01/20 16:59 Dose: 650 mg Documented by: Sodium Chloride (Flush Normal Saline 10 Ml) 10 ml IV BID [facility] Stop: 08/30/20 09:01 Last Admin: 08/01/20 08:17 Dose: Not Given Documented by: Assessment/ Plan: Nephrology CPS stable without CP or SOB No acute events overnight Vitals, medications, blood work and imaging reviewed in the chart. General: Oriented x3, Cooperative, Mild distress HEENT: Atraumatic Neck: Supple Respiratory: Clear to auscultation bilaterally Cardiovascular: Regular rate/rhythm, Edema Gastrointestinal: Soft and benign, Non-distended Musculoskeletal: No clubbing, No contractures Integumentary: No rashes, No cyanosis Neurological: Normal speech Blood work reviewed in the chart. Imagings Data: CT ABDOMEN AND PELVIS WITHOUT CONTRAST CLINICAL HISTORY: Right lower quadrant pain COMPARISON: 01/13/2019 TECHNIQUE: CT of the abdomen and pelvis without IV contrast. Evaluation of the solid organs and vasculature is suboptimal due to lack of IV contrast. FINDINGS: Lung Bases: The visualized lung bases are clear. Bones: Posterior diane and screw fixation with discectomy at L4-S1. Multilevel endplate spondylosis. No definite hardware failure identified. Right L5 and bilateral S1 pedicular screws traverse the anterior wall of the vertebrae at these levels. Degenerative joint space narrowing of the hips. Abdomen: Liver: The liver has normal size and density. Gallbladder: High density material in the gallbladder lumen likely represents gallstones. No definite pericholecystic inflammatory change. Spleen, Pancreas, and Adrenal Glands: The spleen, pancreas, and adrenal glands are unremarkable. Kidneys: The kidneys have normal size without evidence of hydronephrosis. No obstructing ureteral calculi. Mild bilateral nonspecific perinephric fat stranding. Vasculature: Aortoiliac atherosclerosis. IVC is unremarkable. Stomach: The stomach and duodenum have normal course. Other: No free intraperitoneal air. No free fluid or lymphadenopathy. Pelvis: Bladder: Urinary bladder is unremarkable. Bowel: No dilated loops of large or small bowel. Appendix: Normal appendix. Pelvis: Prior hysterectomy. IMPRESSION: 1. No acute inflammatory or obstructive process identified. 2. Cholelithiasis without other CT evidence of acute cholecystitis. This exam was performed according to our departmental dose-optimization program, which includes automated exposure control, adjustment of the mA and/or kV according to patient size and/or use of iterative reconstruction technique. EXAM DESCRIPTION: RAD - Chest Single View - 07/30/2020 7:59 pm CLINICAL HISTORY: nausea/vomiting, shortness of breath COMPARISON: Portable September 2019 TECHNIQUE: AP portable chest image was obtained 07/30/2020 7:59 pm . FINDINGS: Lung volumes are low accentuating interstitial pattern. This potentially masks early edema or infiltrate. No focal mass or consolidation. No significant failure or volume overload. Heart and vasculature are normal. No measurable pleural effusion and no pneumothorax. No acute bony abnormality seen. No acute aortic findings suspected. IMPRESSION: Limited shallow inspiration exam without acute cardiopulmonary finding. Conclusions/Impression: A/ NOEMI vs progressive CKD suspicious for ESRD Proteinuria Hypokalemia Acidosis Hypocalcemia HTN with CKD LE Edema DM II with CKD Anemia in chronic illness P/ Continue current POC and Medications. Surgery to place HD CVC placement. Initiate HD today. Continue Doxazosin BID. Continue oral bicarb. Continue calcitriol. Continue Retacrit. HBV panel pending No NSAIDs. AM labs. Daily weight.
[2020-08-01] MEDS: ATORVASTATIN 20 MG TAB PO SCH (21:52)
[2020-08-02 05:47] LABS: Absolute Lymphocytes (CBC) 0.4 K/uL (0.7-4.9); Basophils % 0.1 % (0-1.3); Hematocrit 26.1 % (36.0-45.0); Lymphocytes % 9.8 % (15.3-44.8); MPV 8.5 fL (7.6-11.3); RBC Red Blood Cell Count 2.74 M/uL (3.86-4.86)
[2020-08-02 06:10] LABS: Potassium 3.2 mmol/L (3.5-5.1)
[2020-08-02] MEDS: SODIUM BICARB 325 MG TAB PO SCH (08:00)
--- NOTE | 2020-08-02 08:03 | P.PN ---
Date of Service: 08/02/20 Vital Signs Temp Pulse Resp BP Pulse Ox 97.7 F 73 17 165/74 H 95 08/02/20 04:00 08/02/20 04:00 08/02/20 04:00 08/02/20 04:00 08/02/20 04:00 Medications Acetaminophen (Acetaminophen 500 Mg Tab) 500 mg PO Q4HP PRN PRN Reason: TEMP > 100' F Stop: 08/30/20 00:07 Last Admin: 08/01/20 17:44 Dose: 500 mg Documented by: Atorvastatin Calcium (Atorvastatin 20 Mg Tab) 20 mg PO BEDTIME [facility] Stop: 08/30/20 21:01 Last Admin: 08/01/20 21:52 Dose: 20 mg Documented by: Calcitriol (Calcitrol 0.25 Mcg Cap) 0.5 mcg PO DAILY [facility] Stop: 08/31/20 09:01 Last Admin: 08/01/20 12:51 Dose: 0.5 mcg Documented by: Carvedilol (Carvedilol 25 Mg Tab) 25 mg PO BID [facility] Stop: 08/30/20 09:01 Last Admin: 08/01/20 21:52 Dose: 25 mg Documented by: Cholecalciferol (Vitamin D 5,000 Unit Cap) 5,000 unit PO DAILY [facility] Stop: 08/30/20 09:01 Last Admin: 08/01/20 12:51 Dose: 5,000 unit Documented by: Diphenoxylate HCl/Atropine (Diphenox/Atrop Sulf 1 Tab) 1 tab PO QID PRN PRN Reason: DIARRHEA Stop: 08/30/20 08:22 Last Admin: 07/31/20 11:47 Dose: 1 tab Documented by: Doxazosin Mesylate (Doxazosin 2 Mg Tab) 2 mg PO BID [facility] Stop: 08/31/20 09:01 Last Admin: 08/01/20 21:55 Dose: 2 mg Documented by: Enteral Nutritional Formula (Nepro Shake 237 Ml Can) 237 ml PO BID [facility] Stop: 08/30/20 21:01 Last Admin: 08/01/20 21:58 Dose: 237 ml Documented by: Epoetin [place] (Epoetin 4,000 Unit/Ml Vial) 4,000 unit SQ M,W,F [facility] Stop: 08/31/20 17:01 Last Admin: 08/01/20 16:59 Dose: 4,000 unit Documented by: Heparin Sodium (Porcine) (Heparin 5000 Unit/Ml 1 Ml Vial) 5,000 unit SQ Q12HR [facility] Stop: 08/30/20 09:01 Last Admin: 08/01/20 21:56 Dose: 5,000 unit Documented by: Heparin Sodium (Porcine) (Heparin 1,000 Unit/Ml Vial) 6,000 unit IV EVERY HD PRN PRN Reason: AFTER EACH Stop: 08/30/20 21:27 Hydralazine HCl (Hydralazine Hcl 25 Mg Tablet) 100 mg PO TID [facility] Stop: 08/30/20 09:01 Last Admin: 08/01/20 21:52 Dose: 100 mg Documented by: Albumin Human (Albumin 25%) 50 mls @ 100 mls/hr IV EVERY HD [facility] Stop: 08/30/20 22:01 Insulin Human Regular (Insulin -Regular Human 50 Unit/0.5 Ml Ml) 0 unit SQ ACHS [facility]; Protocol Stop: 08/30/20 07:31 Last Admin: 08/01/20 21:56 Dose: 4 unit Documented by: Isosorbide Mononitrate (Isosorbide [place] Sr 30 Mg Tab) 30 mg PO DAILY [facility] Stop: 08/30/20 09:01 Last Admin: 08/01/20 09:00 Dose: Not Given Documented by: Ketorolac Tromethamine (Ketorolac Opthalmic 5 Ml Bot) 1 drops OPTH BID [facility] Stop: 08/30/20 09:01 Last Admin: 08/01/20 21:00 Dose: Not Given Documented by: Lactobacillus Acidoph/[place] (Lactobacillus/Acidophilus Tab) 1 tab PO BID [facility] Stop: 08/30/20 21:01 Last Admin: 08/01/20 21:52 Dose: 1 tab Documented by: Mannitol (Mannitol 25% 12.5 Gm/50 Ml Vial) 12.5 gm IV EVERY HD PRN PRN Reason: Titrate to SBP (MUST DEFINE) Stop: 08/30/20 21:27 Promethazine HCl (Promethazine Inj 25 Mg/Ml Amp) 12.5 mg IV Q6H PRN PRN Reason: NAUSEA / VOMITING Stop: 08/30/20 05:38 Sodium Bicarbonate (Sodium Bicarb 325 Mg Tab) 650 mg PO TIDWM [facility] Stop: 08/31/20 08:01 Last Admin: 08/01/20 16:59 Dose: 650 mg Documented by: Sodium Chloride (Flush Normal Saline 10 Ml) 10 ml IV BID [facility] Stop: 08/30/20 09:01 Last Admin: 08/01/20 21:57 Dose: 10 ml Documented by: Assessment/ Plan: Nephrology CPS stable without CP or SOB Counseled regarding dialysis and transplant. Feeling better with improved nausea. Mild neck pain at the CVC site. No acute events overnight Vitals, medications, blood work and imaging reviewed in the chart. General: Oriented x3, Cooperative, Mild distress HEENT: Atraumatic Neck: Supple Respiratory: Clear to auscultation bilaterally Cardiovascular: Regular rate/rhythm, Edema Gastrointestinal: Soft and benign, Non-distended Musculoskeletal: No clubbing, No contractures Integumentary: No rashes, No cyanosis Neurological: Normal speech Blood work reviewed in the chart. Imagings Data: CT ABDOMEN AND PELVIS WITHOUT CONTRAST CLINICAL HISTORY: Right lower quadrant pain COMPARISON: 01/13/2019 TECHNIQUE: CT of the abdomen and pelvis without IV contrast. Evaluation of the solid organs and vasculature is suboptimal due to lack of IV contrast. FINDINGS: Lung Bases: The visualized lung bases are clear. Bones: Posterior diane and screw fixation with discectomy at L4-S1. Multilevel endplate spondylosis. No definite hardware failure identified. Right L5 and bilateral S1 pedicular screws traverse the anterior wall of the vertebrae at these levels. Degenerative joint space narrowing of the hips. Abdomen: Liver: The liver has normal size and density. Gallbladder: High density material in the gallbladder lumen likely represents gallstones. No definite pericholecystic inflammatory change. Spleen, Pancreas, and Adrenal Glands: The spleen, pancreas, and adrenal glands are unremarkable. Kidneys: The kidneys have normal size without evidence of hydronephrosis. No obstructing ureteral calculi. Mild bilateral nonspecific perinephric fat stranding. Vasculature: Aortoiliac atherosclerosis. IVC is unremarkable. Stomach: The stomach and duodenum have normal course. Other: No free intraperitoneal air. No free fluid or lymphadenopathy. Pelvis: Bladder: Urinary bladder is unremarkable. Bowel: No dilated loops of large or small bowel. Appendix: Normal appendix. Pelvis: Prior hysterectomy. IMPRESSION: 1. No acute inflammatory or obstructive process identified. 2. Cholelithiasis without other CT evidence of acute cholecystitis. This exam was performed according to our departmental dose-optimization program, which includes automated exposure control, adjustment of the mA and/or kV according to patient size and/or use of iterative reconstruction technique. EXAM DESCRIPTION: RAD - Chest Single View - 07/30/2020 7:59 pm CLINICAL HISTORY: nausea/vomiting, shortness of breath COMPARISON: Portable September 2019 TECHNIQUE: AP portable chest image was obtained 07/30/2020 7:59 pm . FINDINGS: Lung volumes are low accentuating interstitial pattern. This potentially masks early edema or infiltrate. No focal mass or consolidation. No significant failure or volume overload. Heart and vasculature are normal. No measurable pleural effusion and no pneumothorax. No acute bony abnormality seen. No acute aortic findings suspected. IMPRESSION: Limited shallow inspiration exam without acute cardiopulmonary finding. Conclusions/Impression: A/ NOEMI vs progressive CKD suspicious for ESRD Proteinuria Hypokalemia Acidosis Hypocalcemia HTN with CKD LE Edema DM II with CKD Anemia in chronic illness P/ Continue current POC and Medications. First HD 2-09-16. Arrange for second HD today. Continue Doxazosin BID. DC oral bicarb. Continue calcitriol. Continue Retacrit. HBV panel pending No NSAIDs. AM labs. Daily weight. Placement pending at the [facility].
[2020-08-02] MEDS ORDERED: POTASSIUM 25 MEQ EFFERV TAB FT ONE (08:12)
[2020-08-02] MEDS: KETOROLAC OPTHALMIC 5 ML BOT OPTH SCH ×2 (09:00→20:51)
[2020-08-02] MEDS: INSULIN -REGULAR HUMAN 50 UNIT/0.5 ML ML SQ SCH ×4 (09:02→20:52)
[2020-08-02] MEDS: HYDRALAZINE HCL 25 MG TABLET PO SCH ×3 (09:03→20:51)
[2020-08-02] MEDS: HEPARIN 5000 UNIT/ML 1 ML VIAL SQ SCH ×2 (09:03→20:49)
[2020-08-02] MEDS: CALCITROL 0.25 MCG CAP PO SCH (09:03)
[2020-08-02] MEDS: VITAMIN D 5,000 UNIT CAP PO SCH (09:04)
[2020-08-02] MEDS: LACTOBACILLUS/ACIDOPHILUS TAB PO SCH ×2 (09:04→20:50)
[2020-08-02] MEDS: carvediloL 25 MG TAB PO SCH ×2 (09:04→20:50)
[2020-08-02] MEDS: DIPHENOX/ATROP SULF 1 TAB PO PRN (09:04)
[2020-08-02] MEDS: DOXAZOSIN 2 MG TAB PO SCH ×2 (09:04→20:51)
[2020-08-02] MEDS: ISOSORBIDE MONO SR 30 MG TAB PO SCH (09:04)
[2020-08-02] MEDS: NEPRO SHAKE 237 ML CAN PO SCH ×2 (09:05→20:52)
--- NOTE | 2020-08-02 17:01 | P.PN ---
Subjective Date of Service: 08/02/20 Primary Care Provider: Dr. Taylor Chief Complaint: Renal failure Subjective: Improving, Doing well Physical Examination - Vital Signs Temperature: 98.1 F Blood Pressure: 139/61 Pulse: 61 Respirations: 15 Pulse Ox (%): 98 - Studies Medications List Reviewed: Yes Assessment & Plan Discharge Plan: Home Plan to discharge in: Greater than 2 days Physician Review Additional Text: Physical exam: Patient alert, cooperative. Patient appropriate Heart: Regular rate and rhythm Lungs: Clear to auscultation Abdomen: Soft nontender nondistended Extremities: Good range of motion to the upper lower extremities without any focal deficits. Impression: Nausea, vomiting secondary to acute on chronic renal failure stage 5 now end- stage renal disease requiring dialysis Diarrhea likely viral Diabetes mellitus type 2 Hypertension Hyperlipidemia Anemia of chronic disease Plan Nausea, vomiting secondary to acute on chronic renal failure stage 5 now end- stage renal disease requiring dialysis: Patient had hemodialysis catheter placed. 1st dialysis was on yesterday. 2nd dialysis schedule for today. No further diarrhea. Continue with Nephrology recommendations. Awaiting hepatitis panel. Social work to work on approval for outpatient dialysis. Will discuss further with nephrology on plan of care. Diarrhea likely viral: Patient on a lactobacillus. This has resolved. C diff toxin negative. Diabetes mellitus type 2: Continue Accu-Cheks. Sliding scale in place. Hypertension: Continue with medication Hyperlipidemia: Continue medication Anemia of chronic disease: Monitor hemoglobin. Transfuse if less than 7.0. Continue Procrit Time Spent Managing Pts Care (In Minutes): 55
[2020-08-02 18:57] LABS: HBsAG Nonreactive (Nonreactive)
[2020-08-02] MEDS: ATORVASTATIN 20 MG TAB PO SCH (20:51)
[2020-08-03] MEDS: DIPHENOX/ATROP SULF 1 TAB PO PRN (03:39)
[2020-08-03 05:12] VITALS: O2SAT 98
[2020-08-03 06:16] LABS: Absolute Lymphocytes (CBC) 1.2 K/uL (0.7-4.9); Basophils % 0.5 % (0-1.3); Hematocrit 26.1 % (36.0-45.0); MPV 8.6 fL (7.6-11.3); RBC Red Blood Cell Count 2.71 M/uL (3.86-4.86)
[2020-08-03 06:26] LABS: Potassium 4.4 mmol/L (3.5-5.1)
[2020-08-03] MEDS: INSULIN -REGULAR HUMAN 50 UNIT/0.5 ML ML SQ SCH ×3 (07:30→16:30)
[2020-08-03] MEDS: NEPRO SHAKE 237 ML CAN PO SCH (09:00)
[2020-08-03] MEDS: KETOROLAC OPTHALMIC 5 ML BOT OPTH SCH (09:00)
[2020-08-03] MEDS: HEPARIN 5000 UNIT/ML 1 ML VIAL SQ SCH (10:31)
[2020-08-03] MEDS: HYDRALAZINE HCL 25 MG TABLET PO SCH ×2 (10:31→14:34)
[2020-08-03] MEDS: VITAMIN D 5,000 UNIT CAP PO SCH (10:31)
[2020-08-03] MEDS: DOXAZOSIN 2 MG TAB PO SCH (10:31)
[2020-08-03] MEDS: carvediloL 25 MG TAB PO SCH (10:31)
[2020-08-03] MEDS: LACTOBACILLUS/ACIDOPHILUS TAB PO SCH (10:32)
[2020-08-03] MEDS: CALCITROL 0.25 MCG CAP PO SCH (10:32)
[2020-08-03] MEDS: ISOSORBIDE MONO SR 30 MG TAB PO SCH (10:32)
--- NOTE | 2020-08-03 15:51 | P.PN ---
Subjective Date of Service: 08/03/20 Primary Care Provider: Dr. Taylor Chief Complaint: Renal failure Subjective: Improving (Reported some diarrhea today.) Physical Examination - Vital Signs Temperature: 97.2 F Blood Pressure: 129/59 Pulse: 62 Respirations: 16 Pulse Ox (%): 98 - Studies Medications List Reviewed: Yes Assessment & Plan Discharge Plan: Home Plan to discharge in: 24 Hours Physician Review Additional Text: Physical exam: Patient alert, cooperative. Patient appropriate Heart: Regular rate and rhythm Lungs: Clear to auscultation Abdomen: Soft nontender nondistended Extremities: Good range of motion to the upper lower extremities without any focal deficits. Impression: Nausea, vomiting secondary to acute on chronic renal failure stage 5 now end- stage renal disease requiring dialysis Diarrhea likely viral Diabetes mellitus type 2 Hypertension Hyperlipidemia Anemia of chronic disease Plan Nausea, vomiting secondary to acute on chronic renal failure stage 5 now end- stage renal disease requiring dialysis: Patient had dialysis yesterday. Patient reported some diarrhea today. Continue with medication. Social work working to get outpatient dialysis scheduled with chair in time. Hopefully this can be done as early as today. Continue with nephrology recommendation. If chair time arranged then will plan for discharge. Diarrhea likely viral: Patient on a lactobacillus. This has resolved. C diff toxin negative. Diabetes mellitus type 2: Continue Accu-Cheks. Sliding scale in place. Hypertension: Continue with medication Hyperlipidemia: Continue medication Anemia of chronic disease: Monitor hemoglobin. Transfuse if less than 7.0. Continue Procrit Time Spent Managing Pts Care (In Minutes): 55
--- NOTE | 2020-08-03 20:13 | P.DS ---
Admission Date: 07/30/20 Discharge Date: 08/03/20 Primary Care Provider: Dr. Taylor Disposition: ROUTINE DISCHARGE Discharge Condition: GOOD Reason for Admission: Renal failure Consultations: Nephrology- Dr. Kee, general surgery- Dr. Laird Procedures: CXR FINDINGS: Portable technique limits examination quality. Right-sided venous catheter is present with its tip in the SVC. No pneumothorax is present. Mild interstitial pulmonary edema is seen. The heart is mildly enlarged. IMPRESSION: No postprocedure pneumothorax. CT ABD/Pelvis FINDINGS: Lung Bases: The visualized lung bases are clear. Bones: Posterior diane and screw fixation with discectomy at L4-S1. Multilevel endplate spondylosis. No definite hardware failure identified. Right L5 and bilateral S1 pedicular screws traverse the anterior wall of the vertebrae at these levels. Degenerative joint space narrowing of the hips. Abdomen: Liver: The liver has normal size and density. Gallbladder: High density material in the gallbladder lumen likely represents gallstones. No definite pericholecystic inflammatory change. Spleen, Pancreas, and Adrenal Glands: The spleen, pancreas, and adrenal glands are unremarkable. Kidneys: The kidneys have normal size without evidence of hydronephrosis. No obstructing ureteral calculi. Mild bilateral nonspecific perinephric fat stranding. Vasculature: Aortoiliac atherosclerosis. IVC is unremarkable. Stomach: The stomach and duodenum have normal course. Other: No free intraperitoneal air. No free fluid or lymphadenopathy. Pelvis: Bladder: Urinary bladder is unremarkable. Bowel: No dilated loops of large or small bowel. Appendix: Normal appendix. Pelvis: Prior hysterectomy. IMPRESSION: 1. No acute inflammatory or obstructive process identified. 2. Cholelithiasis without other CT evidence of acute cholecystitis. This exam was performed according to our departmental dose-optimization program, which includes automated exposure control, adjustment of the mA and/or kV according to patient size and/or use of iterative reconstruction technique. Medical problem list Nausea, vomiting secondary to acute on chronic renal failure stage 5 now end- stage renal disease requiring dialysis Diarrhea likely viral Diabetes mellitus type 2 Hypertension Hyperlipidemia Anemia of chronic disease Brief History of Present Illness: 70-year-old female history diabetes mellitus type 2, hypertension, anemia chronic disease, CKD 5 presents emergency department for vomiting. Patient reports that she has been nauseous over the course of the last month or so but today began having vomiting as well. Patient also some right lower quadrant pain. Patient was evaluated in the emergency department found to be in renal failure creatinine 3.36 GFR 13 BUN 83. Potassium 3.9. ED provider discuss case with nephrology, this is similar to patient's labs last month but at that time she had refused dialysis, patient is amendable to dialysis at this time, nephrology wishes for patient to be admitted to receive HD/PD catheter placement. Hemoglobin is 8.6 white blood cell count within normal limits, CT abdomen pelvis without contrast negative for any acute process. Hospital Course: 70-year-old female was admitted with progression of CKD to ESRD requir ing hemodialysis. Patient received tunneled hemodialysis catheter and tolerated dialysis well in the hospital. Patients, hypertension, hyperlipidemia, diabetes mellitus type 2, anemia chronic disease remained stable throughout hospitalization. Hemoglobin 8.8 today. Patient was awaiting COVID swab results to get a dialysis chair on an outpatient basis. This evening patient was approved for outpatient dialysis chair at [facility], dialysis is to be initiated on 08/06/2020 at 12:45 p.m. case was discussed with nephrology to his okay with patient being discharged at this time to follow up with Nephrology on an outpatient basis in addition to outpatient dialysis. Patient vital signs stable this time, labs unremarkable. Patient states that her daughter came to pick her up tonight and is safe for discharge at this time. At discharge patient will continue with her other home medications as prescribed and follow up with primary care doctor in 1-2 weeks in addition to general surgery. Vital Signs/Physical Exam: Temp Pulse Resp BP Pulse Ox 97.6 F 67 16 106/55 L 99 08/03/20 16:00 08/03/20 16:00 08/03/20 16:00 08/03/20 16:00 08/03/20 16:00 General: Alert, In no apparent distress HEENT: Atraumatic, PERRLA Neck: Supple, JVD not distended Respiratory: Clear to auscultation bilaterally, Normal air movement Cardiovascular: Regular rate/rhythm, Normal S1 S2 Gastrointestinal: Normal bowel sounds, No tenderness Musculoskeletal: No tenderness Integumentary: No rashes Neurological: Normal speech, Normal tone, Normal affect Laboratory Data at Discharge: WBC 4.80 K/uL (4.3-10.9) D 08/03/20 05:45 Hgb 8.8 g/dL (12.0-15.0) L 08/03/20 05:45 Hct 26.1 % (36.0-45.0) L 08/03/20 05:45 Plt Count 158 K/uL (152-406) 08/03/20 05:45 PT 13.4 SECONDS (9.5-12.5) H 07/31/20 04:56 INR 1.13 07/31/20 04:56 Sodium 143 mmol/L (136-145) 08/03/20 05:45 Potassium 4.4 mmol/L (3.5-5.1) 08/03/20 05:45 BUN 47 mg/dL (7-18) H 08/03/20 05:45 Creatinine 2.73 mg/dL (0.55-1.3) H 08/03/20 05:45 Glucose 137 mg/dL (74-106) H 08/03/20 05:45 Uric Acid 8.6 mg/dL (2.6-6.0) H 08/01/20 05:19 Phosphorus 5.2 mg/dL (2.5-4.9) H 08/01/20 05:19 Magnesium 1.8 mg/dL (1.8-2.4) 07/30/20 19:20 Total Bilirubin 0.4 mg/dL (0.2-1.0) 07/30/20 19:20 AST 18 U/L (15-37) 07/30/20 19:20 ALT 30 U/L (12-78) 07/30/20 19:20 Alkaline Phosphatase 100 U/L (45-117) 07/30/20 19:20 Lipase 303 U/L (73-393) 07/30/20 19:20 Home Medications: Atorvastatin Calcium 20 mg PO BEDTIME 07/31/20 Carvedilol [Coreg] 25 mg PO BID 07/31/20 Cholecalciferol (Vitamin D3) [Vitamin D3] 5,000 unit PO DAILY 07/31/20 Doxazosin [Cardura] 2 mg PO BEDTIME 07/31/20 Epoetin [place]-Epbx [Retacrit] 40,000 unit SQ SEECOM 07/31/20 Furosemide [Lasix] 20 mg PO DAILY PRN 07/31/20 Glimepiride 2 mg PO BID 02/02/21 Hydralazine HCl 100 mg PO TID 07/31/20 Isosorbide Mononitrate [Isosorbide Mononitrate ER] 30 mg PO DAILY 07/31/20 Ketorolac Opth [Acular 0.5% Opth Drops] 1 drop OPTH BID 07/31/20 Physician Discharge Instructions: 70-year-old female was admitted with progression of CKD to ESRD requiring hemodialysis. Patient received tunneled hemodialysis catheter and tolerated dialysis well in the hospital. Patients, hypertension, hyperlipidemia, diabetes mellitus type 2, anemia chronic disease remained stable throughout hospitalization. Hemoglobin 8.8 today. Patient was awaiting COVID swab results to get a dialysis chair on an outpatient basis. This evening patient was approved for outpatient dialysis chair at [facility], dialysis is to be initiated on 08/06/2020 at 12:45 p.m. case was discussed with nephrology to his okay with patient being discharged at this time to follow up with Nephrology on an outpatient basis in addition to outpatient dialysis. Patient vital signs stable this time, labs unremarkable. Patient states that her daughter came to pick her up tonight and is safe for discharge at this time. At discharge patient will continue with her other home medications as prescribed and follow up with primary care doctor in 1-2 weeks in addition to general surgery. Diet: Renal Activity: Ad claudia Followup: Noe Taylor MD [Primary Care Provider] - (follow up during dialysis schedule. ) Tyrell Laird MD [ACTIVE - CAN ADMIT] - Time spent managing pt's care (in minutes): 55
--- NOTE | 2020-08-03 20:27 | P.PN ---
Date of Service: 08/03/20 Vital Signs Temp Pulse Resp BP Pulse Ox 97.6 F 67 16 106/55 L 99 08/03/20 16:00 08/03/20 16:00 08/03/20 16:00 08/03/20 16:00 08/03/20 16:00 Medications Acetaminophen (Acetaminophen 500 Mg Tab) 500 mg PO Q4HP PRN PRN Reason: TEMP > 100' F Stop: 08/30/20 00:07 Last Admin: 08/01/20 17:44 Dose: 500 mg Documented by: Atorvastatin Calcium (Atorvastatin 20 Mg Tab) 20 mg PO BEDTIME ROMA Stop: 08/30/20 21:01 Last Admin: 08/02/20 20:51 Dose: 20 mg Documented by: Calcitriol (Calcitrol 0.25 Mcg Cap) 0.5 mcg PO DAILY ROMA Stop: 08/31/20 09:01 Last Admin: 08/03/20 10:32 Dose: 0.5 mcg Documented by: Carvedilol (Carvedilol 25 Mg Tab) 25 mg PO BID ROMA Stop: 08/30/20 09:01 Last Admin: 08/03/20 10:31 Dose: 25 mg Documented by: Cholecalciferol (Vitamin D 5,000 Unit Cap) 5,000 unit PO DAILY ROMA Stop: 08/30/20 09:01 Last Admin: 08/03/20 10:31 Dose: 5,000 unit Documented by: Diphenoxylate HCl/Atropine (Diphenox/Atrop Sulf 1 Tab) 1 tab PO QID PRN PRN Reason: DIARRHEA Stop: 08/30/20 08:22 Last Admin: 08/03/20 03:39 Dose: 1 tab Documented by: Doxazosin Mesylate (Doxazosin 2 Mg Tab) 2 mg PO BID ROMA Stop: 08/31/20 09:01 Last Admin: 08/03/20 10:31 Dose: 2 mg Documented by: Enteral Nutritional Formula (Nepro Shake 237 Ml Can) 237 ml PO BID ROMA Stop: 08/30/20 21:01 Last Admin: 08/03/20 09:00 Dose: 237 ml Documented by: Epoetin [place] (Epoetin 4,000 Unit/Ml Vial) 4,000 unit SQ M,W,F ROMA Stop: 08/31/20 17:01 Last Admin: 08/01/20 16:59 Dose: 4,000 unit Documented by: Heparin Sodium (Porcine) (Heparin 5000 Unit/Ml 1 Ml Vial) 5,000 unit SQ Q12HR [facility] Stop: 08/30/20 09:01 Last Admin: 08/03/20 10:31 Dose: 5,000 unit Documented by: Heparin Sodium (Porcine) (Heparin 1,000 Unit/Ml Vial) 6,000 unit IV EVERY HD PRN PRN Reason: AFTER EACH Stop: 08/30/20 21:27 Last Admin: 08/02/20 01:33 Dose: 6,000 unit Documented by: Hydralazine HCl (Hydralazine Hcl 25 Mg Tablet) 100 mg PO TID [facility] Stop: 08/30/20 09:01 Last Admin: 08/03/20 14:34 Dose: 100 mg Documented by: Albumin Human (Albumin 25%) 50 mls @ 100 mls/hr IV EVERY HD [facility] Stop: 08/30/20 22:01 Insulin Human Regular (Insulin -Regular Human 50 Unit/0.5 Ml Ml) 0 unit SQ ACHS [facility]; Protocol Stop: 08/30/20 07:31 Last Admin: 08/03/20 16:30 Dose: Not Given Documented by: Isosorbide Mononitrate (Isosorbide [place] Sr 30 Mg Tab) 30 mg PO DAILY [facility] Stop: 08/30/20 09:01 Last Admin: 08/03/20 10:32 Dose: 30 mg Documented by: Ketorolac Tromethamine (Ketorolac Opthalmic 5 Ml Bot) 1 drops OPTH BID [facility] Stop: 08/30/20 09:01 Last Admin: 08/03/20 09:00 Dose: Not Given Documented by: Lactobacillus Acidoph/Bulgaricus (Lactobacillus/Acidophilus Tab) 1 tab PO BID [facility] Stop: 08/30/20 21:01 Last Admin: 08/03/20 10:32 Dose: 1 tab Documented by: Mannitol (Mannitol 25% 12.5 Gm/50 Ml Vial) 12.5 gm IV EVERY HD PRN PRN Reason: Titrate to SBP (MUST DEFINE) Stop: 08/30/20 21:27 Promethazine HCl (Promethazine Inj 25 Mg/Ml Amp) 12.5 mg IV Q6H PRN PRN Reason: NAUSEA / VOMITING Stop: 08/30/20 05:38 Sodium Chloride (Flush Normal Saline 10 Ml) 10 ml IV BID ORMA Stop: 08/30/20 09:01 Last Admin: 08/03/20 09:00 Dose: 10 ml Documented by: Assessment/ Plan: Nephrology CPS stable without CP or SOB Counseled regarding dialysis and transplant. Feeling better. No acute events overnight Vitals, medications, blood work and imaging reviewed in the chart. General: Oriented x3, Cooperative, Mild distress HEENT: Atraumatic Neck: Supple Respiratory: Clear to auscultation bilaterally Cardiovascular: Regular rate/rhythm, Edema Gastrointestinal: Soft and benign, Non-distended Musculoskeletal: No clubbing, No contractures Integumentary: No rashes, No cyanosis Neurological: Normal speech Blood work reviewed in the chart. Imagings Data: CT ABDOMEN AND PELVIS WITHOUT CONTRAST CLINICAL HISTORY: Right lower quadrant pain COMPARISON: 01/13/2019 TECHNIQUE: CT of the abdomen and pelvis without IV contrast. Evaluation of the solid organs and vasculature is suboptimal due to lack of IV contrast. FINDINGS: Lung Bases: The visualized lung bases are clear. Bones: Posterior diane and screw fixation with discectomy at L4-S1. Multilevel endplate spondylosis. No definite hardware failure identified. Right L5 and bilateral S1 pedicular screws traverse the anterior wall of the vertebrae at these levels. Degenerative joint space narrowing of the hips. Abdomen: Liver: The liver has normal size and density. Gallbladder: High density material in the gallbladder lumen likely represents gallstones. No definite pericholecystic inflammatory change. Spleen, Pancreas, and Adrenal Glands: The spleen, pancreas, and adrenal glands are unremarkable. Kidneys: The kidneys have normal size without evidence of hydronephrosis. No obstructing ureteral calculi. Mild bilateral nonspecific perinephric fat stranding. Vasculature: Aortoiliac atherosclerosis. IVC is unremarkable. Stomach: The stomach and duodenum have normal course. Other: No free intraperitoneal air. No free fluid or lymphadenopathy. Pelvis: Bladder: Urinary bladder is unremarkable. Bowel: No dilated loops of large or small bowel. Appendix: Normal appendix. Pelvis: Prior hysterectomy. IMPRESSION: 1. No acute inflammatory or obstructive process identified. 2. Cholelithiasis without other CT evidence of acute cholecystitis. This exam was performed according to our departmental dose-optimization program, which includes automated exposure control, adjustment of the mA and/or kV according to patient size and/or use of iterative reconstruction technique. EXAM DESCRIPTION: RAD - Chest Single View - 07/30/2020 7:59 pm CLINICAL HISTORY: nausea/vomiting, shortness of breath COMPARISON: Portable September 2019 TECHNIQUE: AP portable chest image was obtained 07/30/2020 7:59 pm . FINDINGS: Lung volumes are low accentuating interstitial pattern. This potentially masks early edema or infiltrate. No focal mass or consolidation. No significant failure or volume overload. Heart and vasculature are normal. No measurable pleural effusion and no pneumothorax. No acute bony abnormality seen. No acute aortic findings suspected. IMPRESSION: Limited shallow inspiration exam without acute cardiopulmonary finding. Conclusions/Impression: A/ NOEMI vs progressive CKD suspicious for ESRD Proteinuria Hypokalemia Acidosis Hypocalcemia HTN with CKD LE Edema DM II with CKD Anemia in chronic illness P/ Continue current POC and Medications. First HD 08-01-20. Next HD Thursday. Continue Doxazosin BID. Continue calcitriol. Continue Retacrit. No NSAIDs. AM labs prn. Daily weight. Placement pending at the [facility].
[2020-08-03 21:05] VITALS: BP 141/66; TEMP 97.5
[2020-08-06] MEDS ORDERED: EPOETIN ALFA-EPBX 10,000 UNIT/ML VIAL SQ SCH (09:00)
== END 2020-08-03 21:07 | disposition home or self-care (01) | DRG 673 ==
LOC: ER 14:10 → ERHOLD 21:40 → 2ND 23:39
PROVIDERS: ADMIT Family Medicine; ATTEND Family Medicine
PROC: 02HV33Z Insertion of Infusion Device into Superior Vena Cava, Percutaneous Approach (ICD-10-PCS; 2020-08-01)
PROC: 5A1D70Z Performance of Urinary Filtration, Intermittent, Less than 6 Hours Per Day (ICD-10-PCS; 2020-08-01)
PROC: 0JH63XZ Insertion of Tunneled Vascular Access Device into Chest Subcutaneous Tissue and Fascia, Percutaneous Approach (ICD-10-PCS; principal; 2020-08-01 10:00)
DX: N17.9 Acute kidney failure, unspecified (principal); J96.01 Acute respiratory failure with hypoxia; I12.0 Hypertensive chronic kidney disease with stage 5 chronic kidney disease or end stage renal disease; E87.2 Acidosis; N18.6 End stage renal disease; E11.22 Type 2 diabetes mellitus with diabetic chronic kidney disease; D63.1 Anemia in chronic kidney disease; E87.6 Hypokalemia; E83.51 Hypocalcemia; Z88.5 Allergy status to narcotic agent; Z88.0 Allergy status to penicillin; Z88.1 Allergy status to other antibiotic agents; Z91.040 Latex allergy status; Z90.710 Acquired absence of both cervix and uterus; Z96.652 Presence of left artificial knee joint; Z79.84 Long term (current) use of oral hypoglycemic drugs; Z79.899 Other long term (current) drug therapy; Z20.822 Contact with and (suspected) exposure to COVID-19
CPT/HCPCS: 36415; 71045; 74176; 76377; 80048; 80076; 81003; 81015; 82947; 83690; 83735; 83880; 84100; 84439; 84443; 84484; 84550; 85025; 85610; 86317; 86704; 87045; 87046; 87177; 87209; 87324; 87340; 87449; 90935; 93005; 96365; 99285; C1752; J1100; J1644; J2250; J2550; J2704; J3010; J7040; J7050; J7120; Q5105; U0003

== ENCOUNTER 2020-08-08 16:52 | Emergency (ER) | payer OTHER ==
[2020-08-08] MEDS ORDERED: PROMETHAZINE INJ 25 MG/ML AMP ONE (18:01)
[2020-08-08] MEDS ORDERED: MEPERIDINE HCL 25 MG/ML SYR ONE (18:01)
[2020-08-08 18:21] LABS: Absolute Lymphocytes (CBC) 1.6 K/uL (0.7-4.9); Basophils % 0.8 % (0-1.3); Hematocrit 30.4 % (36.0-45.0); Lymphocytes % 25.5 % (15.3-44.8); MPV 9.3 fL (7.6-11.3); RBC Red Blood Cell Count 3.16 M/uL (3.86-4.86)
[2020-08-08 18:22] LABS: Protime INR 0.96
[2020-08-08 18:32] LABS: Potassium 3.8 mmol/L (3.5-5.1)
--- NOTE | 2020-08-08 18:54 | RAD REPORT ---
EXAM DESCRIPTION: CT - Head Brain Wo Cont - 08/08/2020 6:47 pm CLINICAL HISTORY: Headache COMPARISON: None TECHNIQUE: Computed axial tomography of the head was obtained. IV contrast was not requested. All CT scans are performed using dose optimization technique as appropriate and may include automated exposure control or mA/KV adjustment according to patient size. FINDINGS: An intracranial bleed is not seen . The ventricles are normal in caliber. No extra-axial fluid collection is noted. Fluid within the sinuses/ mastoids is not seen. IMPRESSION: No acute intracranial abnormality is seen. If patient's symptoms persist MRI of the bra in would be recommended.
--- NOTE | 2020-08-08 19:04 | RAD REPORT ---
EXAM DESCRIPTION: CT - Soft Tissue Neck Wo Contr - 08/08/2020 6:47 pm CLINICAL HISTORY: Neck pain/headache COMPARISON: none TECHNIQUE: Computed axial tomography of the neck was obtained. IV contrast was not requested. This does limit evaluation somewhat. Coronal and sagittal reconstruction was performed. All CT scans are performed using dose optimization technique as appropriate and may include automated exposure control or mA/KV adjustment according to patient size. FINDINGS: Mild soft tissue fullness within the left posterior tongue base. The remainder of the pharynx, larynx and subglottic trachea appear unremarkable The parotid, submandibular and thyroid glands appear unremarkable. No lymphadenopathy is seen Fluid within the sinuses/mastoids is not seen. Right paracentral disc osteophyte complex C6-7. Small central disc herniation C5-6 Carotid calcifications. IMPRESSION: Mild soft tissue fullness within the left posterior tongue base. This may be a normal fi nding for the patient. However, as a subtle mass can result in this appearance direct visualization i s recommended
[2020-08-08 20:04] LABS: Urine Blood NEGATIVE (NEG); Urine Glucose NEGATIVE (NEG); Urine Protein 3+ (NEG); Urine Specific Gravity 1.025 (1.005-1.030)
--- NOTE | 2020-08-08 20:12 | ER ---
Nurse's Notes [facility] Name: Tracy Butt Age: 70 yrs Sex: Female : 1950 Arrival Date: 08/08/2020 Time: 16:55 Bed 19 Private MD: Noe Taylor Diagnosis: Headache Presentation: 08/08 16:57 Chief complaint: Patient states: headache, right ear pain, leg cramping in her ankle sv but has resolved. Pt reports that she had her dialysis port placed last week on Thu and since then has been having these symptoms intermittently but today the symptoms have been constant. Coronavirus screen: Client denies travel out of the [place] in the last 14 days. At this time, the client does not indicate any symptoms associated with coronavirus-19. Ebola Screen: No symptoms or risks identified at this time. Risk Assessment: Do you want to hurt yourself or someone else? Patient reports no desire to harm self or others. Onset of symptoms was July 2020. 16:57 Method Of Arrival: Ambulatory sv 16:57 Acuity: ANTHONY 3 sv 16:59 Initial Sepsis Screen: Does the patient meet any 2 criteria? No. Patient's initial sv sepsis screen is negative. Does the patient have a suspected source of infection? No. Patient's initial sepsis screen is negative. Triage Assessment: 18:20 Headache History: The patient has had previous headaches and this one is more severe zb than previous episodes. General: Appears in no apparent distress. Behavior is calm, cooperative, appropriate for age. Pain: Complains of pain in right ear and neck and right anterior aspect of neck and right lateral aspect of neck. 20:31 Pain: Also complains of no other associated symptoms. zb Historical: - Allergies: 16:57 CHLORAMPHENICOL; sv 16:57 Latex, Natural Rubber; sv 16:57 PENICILLINS; sv 16:57 Zofran or Morphine, last time I was here I had itching to either 1 of them; sv - PMHx: 16:57 Hypertension; kidney disease; Anemia; Diabetes - NIDDM; sv - PSHx: 16:57 Hysterectomy; left knee replacement; back sx diane placed; sv - Immunization history:: Adult Immunizations up to date. - Social history:: Smoking status: Patient denies any tobacco usage or history of. Screenin:51 Abuse screen: Denies threats or abuse. Denies injuries from another. Abuse screen: zb Denies threats or abuse. Nutritional screening: No deficits noted. Tuberculosis screening: No symptoms or risk factors identified. Fall Risk None identified. No fall in past 12 months (0 pts). No secondary diagnosis (0 pts). IV access (20 points). Ambulatory Aid- Crutches/Cane/Walker (15 pts). Gait- Normal/Bed Rest/Wheelchair (0 pts) Mental Status- Oriented to own ability (0 pts). Total Moy Fall Scale indicates Low Risk Score (25-44 pts). Fall prevention measures have been instituted. Side Rails Up X 2 Placed close to Nursing Station Frequent Obs/Assesments occuring As available Patient and Family Educated on Fall Prevention Program and strategies. Assessment: 17:52 General: Appears in no apparent distress. comfortable, Behavior is calm, cooperative, zb appropriate for age. Neuro: Level of Consciousness is awake, alert, obeys commands, Oriented to person, place, time, situation, Brand Lead are equal bilaterally Moves all extremities. Gait is steady, Speech is normal, Facial symmetry appears normal, Pupils are PERRLA. Cardiovascular: Capillary refill < 3 seconds in bilateral fingers Patient's skin is warm and dry. Respiratory: Airway is patent Respiratory effort is even, unlabored, Respiratory pattern is regular, symmetrical. GI: Abdomen is round non-distended. : No signs and/or symptoms were reported regarding the genitourinary system. EENT: No signs and/or symptoms were reported regarding the EENT system. Derm: Skin is intact, is healthy with good turgor, Skin is dry, Skin is normal, Skin temperature is warm. Musculoskeletal: Range of motion: intact in all extremities. 17:52 Pain: Complains of pain in neck and right anterior aspect of neck and right lateral zb aspect of neck Pain currently is 10 out of 10 on a pain scale. Quality of pain is described as aching, tender, Pain began a bout a week. since patient surgery. Noted to be grimacing. 17:56 Reassessment: pt ambulated to restroom. zb 18:30 Reassessment: patient states that pain has decrease slight to 8/10. zb 18:45 Reassessment: spoke to pt daughter. updated on plan of care. ROCK ERICKSON [phone] zb daughter phone number. 19:51 Reassessment: ECP at bedside discussing care. zb 20:19 Reassessment: spoke to patient daughter notified that patient is d/c. zb 20:29 Reassessment: d/c instruction given. IV removed. Patient given warm blanket and wheeled zb out to wait for family. Vital Signs: 16:59 BP 134 / 60; Pulse 76; Resp 18; Temp 97.8; Pulse Ox 99% ; Weight 63.96 kg; Height 5 ft. sv 4 in. (162.56 cm); 18:05 BP 152 / 62; Pulse 67; Resp 17; Pulse Ox 100% on R/A; mh5 19:00 BP 137 / 63; Pulse 65; Resp 18; Pulse Ox 99% on R/A; zb 20:00 BP 143 / 76; Pulse 63; Resp 16; Pulse Ox 100% on R/A; zb 16:59 Body Mass Index 24.20 (63.96 kg, 162.56 cm) sv ED Course: 16:55 Patient arrived in ED. ag5 16:55 Noe Taylor MD is Private Physician. ag5 16:56 Arm band placed on. sv 16:57 Olvierio Chou MD is Attending Physician. kdr 16:59 Triage completed. sv 17:18 Lesli Caballero, PARVIN is Primary Nurse. zb 17:54 Patient has correct armband on for positive identification. Pulse ox on. NIBP on. Door zb closed. Noise minimized. Warm blanket given. 18:00 Inserted saline lock: 20 gauge in right antecubital area, using aseptic technique. zb Blood collected. 18:47 CT Head Brain wo Cont In Process Unspecified. EDMS 18:47 Soft Tissue Neck Wo Contr In Process Unspecified. EDMS 18:58 Attending Physician role handed off by Oliverio Chou MD ma2 18:58 Abhishek Gallardo MD is Attending Physician. ma2 19:05 Abhishek Gallardo MD is Attending Physician. ma2 20:30 No provider procedures requiring assistance completed. IV discontinued, intact, zb bleeding controlled, No redness/swelling at site. Pressure dressing applied. Administered Medications: 18:12 Drug: Demerol - Meperidine 12.5 mg Route: IVP; Site: right antecubital; zb 19:53 Follow up: Response: No adverse reaction; Pain is decreased; RASS: Drowsy (-1) zb 18:12 Drug: Phenergan 12.5 mg Route: IVP; Site: right antecubital; zb 19:53 Follow up: Response: No adverse reaction; Pain is decreased zb 20:07 Drug: Reglan 10 mg Route: IVP; Site: right antecubital; zb 20:18 Follow up: Response: No adverse reaction zb 20:07 Drug: Benadryl 12.5 mg Route: IVP; Site: right antecubital; zb 20:19 Follow up: Response: No adverse reaction zb 20:07 Drug: TORadol 30 mg Route: IVP; Site: right antecubital; zb 20:19 Follow up: Response: No adverse reaction zb Outcome: 20:11 Discharge ordered by . onel 20:31 Discharged to home via wheelchair. zb 20:31 Condition: stable 20:31 Discharge instructions given to patient, Instructed on discharge instructions, follow up and referral plans. Demonstrated understanding of instructions, follow-up care. 20:31 Patient left the ED. zb Signatures: Dispatcher [employer] Iris Alexander RN RN sv Rittger, Kevin, MD MD kdr Martinez, [facility] Abhishek Gallardo MD MD ma2 Gaskin, Ajare Lesli Rehman RN RN zjeannie
--- NOTE | 2020-08-08 20:12 | EDPHYS ---
Physician Documentation [facility] Name: Tracy Butt Age: 70 yrs Sex: Female : 1950 Arrival Date: 08/08/2020 Time: 16:55 Bed 19 Private MD: Noe Taylor ED Physician Abhishek Galladro HPI: 08/08 17:35 This 70 yrs old Female presents to ER via Ambulatory with complaints of kdr Headache, Ear Pain, Leg Pain. 17:35 The patient recently had a dialysis cath placed on the right side of her neck and since kdr this morning, she has had pain on the right side of her neck that radiates up to her head. She had talked with Dr. Ascencio about the GRAY and pain this morning and he had wanted a CT scan but she went to dialysis first today and now she is here for her pain evaluation. Additionally, the patient reports that there may have been a flow issue with the catheter and they had requested that Dr. Laird, who initially instilled the catheter, be consulted. Onset: The symptoms/episode began/occurred gradually, this morning, today. Severity of symptoms: At their worst the symptoms were mild in the emergency department the symptoms are unchanged. The patient has not experienced similar symptoms in the past. The patient has been recently seen by a physician: the patient's primary care provider, Dr. Laird and Sonu. Historical: - Allergies: 16:57 CHLORAMPHENICOL; sv 16:57 Latex, Natural Rubber; sv 16:57 PENICILLINS; sv 16:57 Zofran or Morphine, last time I was here I had itching to either 1 of them; sv - PMHx: 16:57 Hypertension; kidney disease; Anemia; Diabetes - NIDDM; sv - PSHx: 16:57 Hysterectomy; left knee replacement; back sx diane placed; sv - Immunization history:: Adult Immunizations up to date. - Social history:: Smoking status: Patient denies any tobacco usage or history of. ROS: 17:35 Constitutional: Negative for fever, chills, and weight loss, Eyes: Negative for injury, kdr pain, redness, and discharge, ENT: Negative for injury, pain, and discharge, Cardiovascular: Negative for chest pain, palpitations, and edema, Respiratory: Negative for shortness of breath, cough, wheezing, and pleuritic chest pain, Abdomen/GI: Negative for abdominal pain, nausea, vomiting, diarrhea, and constipation, Back: Negative for injury and pain, : Negative for injury, bleeding, discharge, and swelling, Skin: Negative for injury, rash, and discoloration, Psych: Negative for depression, anxiety, suicide ideation, homicidal ideation, and hallucinations, Allergy/Immunology: Negative for hives, rash, and allergies, Endocrine: Negative for neck swelling, polydipsia, polyuria, polyphagia, and marked weight changes, Hematologic/Lymphatic: Negative for swollen nodes, abnormal bleeding, and unusual bruising. 17:35 Neck: Positive for pain at rest, tenderness, of the face, right lateral aspect of neck and right anterior aspect of neck. 17:35 MS/extremity: Positive for cramp in right calf. Exam: 17:44 Constitutional: This is a well developed, well nourished patient who is awake, alert, kdr and in no acute distress. Head/Face: Normocephalic, atraumatic. Eyes: Pupils equal round and reactive to light, extra-ocular motions intact. Lids and lashes normal. Conjunctiva and sclera are non-icteric and not injected. Cornea within normal limits. Periorbital areas with no swelling, redness, or edema. Neck: Trachea midline, no thyromegaly or masses palpated, and no cervical lymphadenopathy. Supple, full range of motion without nuchal rigidity, or vertebral point tenderness. No Meningismus. 17:44 Neck: External neck: Very minor tenderness to base of right lateral neck where the cath had been inserted. 17:44 Chest/axilla: Inspection: There is a dialysis catheter in the right anterior chest wall that appears to be dressed but in good condition. Vital Signs: 16:59 BP 134 / 60; Pulse 76; Resp 18; Temp 97.8; Pulse Ox 99% ; Weight 63.96 kg; Height 5 ft. sv 4 in. (162.56 cm); 18:05 BP 152 / 62; Pulse 67; Resp 17; Pulse Ox 100% on R/A; mh5 19:00 BP 137 / 63; Pulse 65; Resp 18; Pulse Ox 99% on R/A; zb 20:00 BP 143 / 76; Pulse 63; Resp 16; Pulse Ox 100% on R/A; zb 16:59 Body Mass Index 24.20 (63.96 kg, 162.56 cm) sv MDM: 18:59 Patient medically screened. ma2 20:09 Differential Diagnosis migraine vs tension headache vs post dialysis syndrome vs ma2 electrolyte disturbance.. Data reviewed: vital signs, nurses notes. Counseling: I had a detailed discussion with the patient and/or guardian regarding: the historical points, exam findings, and any diagnostic results supporting the discharge/admit diagnosis, the presence of at least one elevated blood pressure reading (>120/80) during this emergency department visit, the need for outpatient follow up. Response to treatment: the patient's symptoms have markedly improved after treatment. ED course: headache has improved lab non critical, and cth and neck unremarkable, patient has appointment with dr. ambriz tomorrow at 11. she would like to be discharged. 20:12 ED course: headache is gradual and no red flags. ma2 08/08 17:35 Order name: CBC with Diff; Complete Time: 19:11 kdr 08/08 17:35 Order name: Chem 7; Complete Time: 19:11 kdr 08/08 17:35 Order name: CT Head Brain wo Cont; Complete Time: 19:11 kdr 08/08 17:35 Order name: PT-INR; Complete Time: 19:11 kdr 08/08 20:03 Order name: Urine Dipstick--Ancillary (enter results); Complete Time: 20:11 tt3 08/08 18:37 Order name: Soft Tissue Neck Wo Contr; Complete Time: 19:11 EDMS 08/08 19:53 Order name: Urine Dipstick-Ancillary (obtain specimen); Complete Time: 20:02 ma2 Administered Medications: 18:12 Drug: Demerol - Meperidine 12.5 mg Route: IVP; Site: right antecubital; zb 19:53 Follow up: Response: No adverse reaction; Pain is decreased; RASS: Drowsy (-1) zb 18:12 Drug: Phenergan 12.5 mg Route: IVP; Site: right antecubital; zb 19:53 Follow up: Response: No adverse reaction; Pain is decreased zb 20:07 Drug: Reglan 10 mg Route: IVP; Site: right antecubital; zb 20:18 Follow up: Response: No adverse reaction zb 20:07 Drug: Benadryl 12.5 mg Route: IVP; Site: right antecubital; zb 20:19 Follow up: Response: No adverse reaction zb 20:07 Drug: TORadol 30 mg Route: IVP; Site: right antecubital; zb 20:19 Follow up: Response: No adverse reaction zb Disposition: 08/08/20 20:11 Discharged to Home. Impression: Headache. - Condition is Stable. - Discharge Instructions: General Headache Without Cause. - Medication Reconciliation Form, Thank You Letter, Antibiotic Education, Prescription Opioid Use form. - Follow up: Private Physician; When: Tomorrow; Reason: Continuance of care. Signatures: Dispatcher [employer] EDIris Phillips RN RN sv Rittger, Kevin, MD MD kdr Alzahri, Mohammad, MD MD ma2 Lesli Caballero RN RN zb Corrections: (The following items were deleted from the chart) 18:37 17:35 Soft Tissue Neck W/Contr+CT.RAD.BRZ ordered. [facility] 20:31 20:11 08/08/2020 20:11 Discharged to Home. Impression: Headache. Condition is Stable. zb Prescriptions for Diclofenac Sodium 75 mg Oral Tablet Sustained Release - take 1 tablet by ORAL route 2 times per day; 30 tablet. and Forms are Medication Reconciliation Form, Thank You Letter, Antibiotic Education, Prescription Opioid Use. Follow up: Private Physician; When: Tomorrow; Reason: Continuance of care. ma2
[2020-08-08] MEDS ORDERED: METOCLOPRAMIDE 10 MG/2mL INJ ONE (20:14)
[2020-08-08] MEDS ORDERED: DIPHENHYDRAMINE 50 MG/ML VIAL ONE (20:14)
[2020-08-08] MEDS ORDERED: KETOROLAC 30 MG/ML INJ ONE (20:14)
[2020-08-08] MEDS ORDERED: NA CHLORIDE 0.9% 50 ML ONE (20:15)
--- OUTSIDE RECORDS SUMMARY | 2020-08-08 20:20 | XMS REPORT | Continuity of Care Document ---
:1950 Author Organization [employer] Care Team Providers Name Role Phone [facility] [employer] Unavailable Un available Problems Problem Status Onset Classification Date Comments Sourc e Date Reported ANEMIA Active [facility] 0[address] [place] N18.3 - "CHRONIC Active [facility] KIDNEY DISEASE, STAGE" 016 [place] ARANESP 60 MCG, Active CPT-25272, D63.1 016 [place] DENSE BREAST Active 016 [place] SCREENING Active 016 [place] SCREENING MAMMO Active 016 [facility] CPT 75720, ANEMIA IN Active CKD D63.1 016 [place] [...] (disorder) Resolved Problem 11/24/2019 H Rusty Red [facility] Anemia of chronic Active Problem 11/24/2019 [facility] renal failure Rusty Martinez nd (disorder) [facility] Chronic renal Resolved Problem 11/24/2019 impairment (disorder) Rusty Red H [facility] Diabetes mellitus type Resolved Problem 11/24/2019 2 (disorder) Rusty Alexander H [facility] Hypertensive disorder, Resolved Problem 11/24/2019 systemic arterial Pe Rusty ge (disorder) [facility] Retinopathy (disorder) Resolved Problem 11/24/2019 Rusty Red [facility] R06.02 Active [facility] SHORTNESS OF BREATH Active [facility] ANEMIA IN CHRONIC Active KIDNEY DISEASE [place] ENCNTR SCREEN Active MAMMOGRAM FOR [place] MALIGNANT NE INCONCLUSIVE MAMMOGRAM Active [facility] ANEMIA, UNSPECIFIED Active [facility] Medications Medication Details Route Status Patient Ordering Order Source Instructions Provider Date Epoetin [place] 2,000 unit Active 2000 UNT/ML = 1 ml, 2019 [place] Injectable SUB-Q, 5X Solution Day, # 1 [Procrit] ml, 0 Refill(s) Hydralazine 100 mg = 1 Active Hydrochloride tab, PO, 2019 [place] 100 MG Oral BID, # 60 Tablet tab, 0 Refill(s) doxazosin 2 mg 2 mg = 1 Active oral tablet tab, PO, 2019 [place] Daily, # 30 tab, 0 Refill(s) Brimonidine [...] Notes: No Longer (Same as: Active 2015 [facility]) Non-formula ry Amlodipine 1 tablet Orally No Longer 2.5 MG Orally Al-Azzeh w ar Besylate Active Once a day 2015 MD Dandy, JUAN [place] Notes: No Longer (Same as: Active 2015 [facility]) Non-formula ry Aranesp Notes: Inactive (Same as: 2015 [facility]) Non-formula ry atorvastatin PO, Active Bedtime, 0 2015 [facility] Refill(s) Coreg PO, BID, 0 Active Refill(s) 2015 [facility] Spironolactone 25 mg = 2 Active tab, PO, 2015 [facility] Daily, # 60 tab, 0 Refill(s) glimepiride PO, Daily, Active 0 Refill(s) 2015 [facility] Janumet PO, BID, 0 Active Refill(s) 2015 [facility] Notes: Inactive (Same as: 2015 [facility]) Non-formula ry Aranesp Notes: Inactive (Same as: 2015 [facility]) Non-Formula ry Advair Diskus 1 puff Inhalation [...] PA penicillins Assertion Drug Active MH allergy [place] chloramphenic Assertion Drug Active ol allergy [place] Immunizations No Data Provided for This Section Results Order Name Results Value Reference Date Interpretation Comments [place] [facility] HEMATOLOGY WBC 7.2 3.7 - 10.4 2019 [place] HEMATOLOGY RBC 3.01 4.20 - 5.40 2019 [place] HEMATOLOGY Hgb 10.0 12.0 - 16.0 2019 [place] HEMATOLOGY Hct 29.5 36.0 - 48.0 2019 [place] HEMATOLOGY MCV 98.0 80.0 - 98.0 2019 [place] HEMATOLOGY MCH 33.2 27.0 - 31.0 2019 [place] HEMATOLOGY MCHC 33.9 32.0 - 36.0 2019 [place] HEMATOLOGY RDW 16.0 11.5 - 14.5 2019 [place] HEMATOLOGY Platelet 166 133 - 450 2019 [place] HEMATOLOGY MPV 8.3 7.4 - 10.4 2019 [place] HEMATOLOGY Neutrophils # 6.0 1.5 - 8.1 2019 [place] HEMATOLOGY Lymphocytes # 0.6 1.0 - 5.5 2019 [place] HEMATOLOGY Monocytes # 0.3 0.0 - 0.8 2019 [place] HEMATOLOGY Eosinophils # 0.1 0.0 - 0.5 2019 [place] HEMATOLOGY Basophils # 0.1 0.0 - 0.2 2019 [place] HEMATOLOGY Segs 76.0 45.0 - 75.0 2019 [place] HEMATOLOGY Bands 7.0 0.0 - 11.0 2019 [place] HEMATOLOGY Lymphocytes 9.0 20.0 - 40.0 2019 [place] HEMATOLOGY Monocytes 4.0 2.0 - 12.0 2019 [place] HEMATOLOGY Eosinophils 2.0 0.0 - 4.0 2019 [place] HEMATOLOGY Basophils 2.0 0.0 - 1.0 2019 [place] HEMATOLOGY Atypical 0.0 <=0.0 % Lymphs 2019 [place] HEMATOLOGY RBC Morph Normal Normal (11/22/19 9:50 AM) 2019 [facility] nd HEMATOLOGY Plt Morph Normal Normal (11/22/19 9:50 AM) 2019 [facility] nd HEMATOLOGY Retic Auto 2.2 0.5 - 1.5 2019 [place] HEMATOLOGY PT 13.5 12.0 - 14.7 2019 [place] HEMATOLOGY INR 1.03 0.85 - 1.17 2019 [place] IMMUNOLOGY Coronavirus Not Detected Not (COVID-19) (11/18/19 11:45 AM) Detected 2019 [place] JOANIE Pathology Reports No Data Provided for This Section Diagnostic Reports Report Value Date Source Bone Marrow Bio/Aspr VR PROCEDURE INFORMATION: 11/22/2019 M [facility] Exam: IR Diagnostic Bone Marrow Biopsies [...] be adequate by clyde valadez hematology -- permit technician. The needle was then advanced to allow [...] US - BREAST COMPLETE EDUIN US 10/04/2015 [facility] ULTRASOUND OF BOTH BREASTS AND BOTH AXILLA: 2015 CLINICAL: Dense breasts. Comparison is made to exam d ated: 09/07/2015 mammogram - [facility]. Color flow and real-time ult rasound of [...] breast density, which can be performed at [facility]. Mart Lambert M.D. jt/:10/04/2015 13:42:31 Scrap Kettle Tender: Chicho Dejesus, [facility] This exam was dictated and i nterpreted by [id number] for [facility]. letter sent: Normal exam Ultrasound BI-RADS: 2 Benign Digital Mammo Screening - DIGITAL MAMMO SCREENING EDUIN MA 016 [facility] Eduin MA BILATERAL DIGITAL SCREENING MAMMOGRAM WITH CAD: 09/07/2015 CLINICAL: Routine. Current study was evaluated with a Commercial Finance Manager d Detection (CAD) system. Comparison is made [...] by the referring physician. Mart simental/joyce:09/19/2015 08:31:07 Scrap Kettle Tender: Anne Reina, [facility] This exam was dictated and i nterpreted by [id number] for [facility]. letter sent: Normal [place] Mammogram BI-RADS: [...] Date Comments Source Height 160.02 cm 11/22/2019 [facility] Weight 68.182 11/22/2019 [facility] BMI Calculated 26.63 11/22/2019 [facility] Weight 150 02/15/2016 Rusty House, PA Heart [...] Chan langford MD, PA Weight 70 10/03/2015 [facility] BMI Calculated 25.68 10/03/2015 [facility] Height 165.1 cm 10/03/2015 [facility] Height 165.1 cm 08/13/2015 [facility] BMI Calculated 25.68 08/13/2015 [facility] Weight 70 08/13/2015 [facility] Encounters Location Location Encounter Encounter Reason Attending ADM DC Stat us Source Details Type Number For Provider Date Date Visit [facility] Outpatient [id number] Mohammad 08/09 08/10 [facility] 2 [place] /2015 [facility] Outpt Diag [id number] [place] 08/22 08/23 [facility] 0 [facility] Pear [facility] OP [id number] Ameena 08/29 09/28 [place] Recurring 0 - [facility] Outpatient [id number] Ameena 09/06 09/07 [place] 1 - [facility] OP [id number] Ameena 10/01 10/31 [place] Recurring 1 - [facility] Outpatient [id number] Ameena 10/03 10/04 [facility] 2 - [facility] echo/caroti [id number] 10/15 10/15 Chan Dorman MD, d/arterial [id number] /2015 Dandy, PA dopplers [id number] , PA 0ca Chan echo/caroti [id number] 10/15 10/15 Chan Dorman MD, d/arterial [id number] /2015 Dandy, PA dopplers [id number] , PA a4e Chan echo/caroti [id number] 10/15 10/15 Chan Dorman MD, d/arterial [id number] /2015 JUAN Dorman dopplers [id number] , PA 309 [facility] Follow-Up [id number] 10/31 10/31 Charmaine Dorman MD, [id number] /2015 Dandy PA [id number] , P A aab [facility] Follow-Up [id number] 10/31 10/31 Charmaine Dorman MD, [id number] /2015 Dandy, PA [id number] , P A 75c [facility] Follow-Up [id number] 02/14 02/14 Charmaine Dorman MD, [id number] /2015 JUAN Dorman [id number] , P A 1b2 [facility] Outpatient [id number] O[place] 11/21 11/22 [place] 3 Dralexanderharam /2019 [facility] Procedures Procedure Code Date Perfomer Comments Source [facility] BSO - Total [id number] 06/29/1997 [facility], abdominal [place] hysterectomy and bilateral salpingo-oophorect vivien Back care [id number] [facility] Assessment and Plan No Data Provided for This Section Plan of Care No Data Provided for This Section Social History Social History Date Source Social History TypeResponse 11/22/2019 [facility] Smoking Status Never smoker; Exposure to Tobacco Smoke None; Cigarette Smoking Last 365 Days No; Reg Smoking Cessation Counseling Yes entered on: 11/22/19 Social History ElementQualifiersDate Reported 02/15/2016 Chan Dorman MD, PA Tobacco Use: . Are you a: never smoker Feb 15, 2016 Do you drink alcohol? . Status: No Feb 15, 2016 Social History TypeResponse 11/01/2015 [facility] Smoking Status Never smoker; Exposure to Tobacco Smoke None; Cigarette Smoking Last 365 Days No; Reg Smoking Cessation Counseling Yes Social History TypeResponse 08/11/2015 CLAUDIA [facility] Smoking Status Never smoker; Exposure to Tobacco Smoke None; Cigarette Smoking Last 365 Days No; Reg Smoking Cessation Counseling Yes Family History No Data Provided for This Section Advance Directives No Data Provided for This Section Functional Status No Data Provided for This Section
--- OUTSIDE RECORDS SUMMARY | 2020-08-08 20:20 | XMS REPORT | Clinical Summary ---
:1950 Author Organization [employer] Address [address] [place] [address] Care Team Providers Name Role Phone Asked, [...] 09/27/2019 Documentation Transplant Haley Cifuentes LMSW after 08/08/2019 Surgical History Surgery Date Site/Laterality Comments HYSTERECTOMY [...] 04/11/2019, 09/02/2018 65+ PNEUMOCOCCAL VACCINE Completed 11/11/2017 HEPATITIS C SCREENING Completed 05/17/2019, 05/11/2018 Results Not on fileafter 08/08/2019 Insurance Payer Benefit Plan / Subscriber ID Effective Phone Address T ype Group Dates MEDICARE MEDICARE PART A [id number] 2014-Pre [place] Medicare AND B sent [facility] [id number] 2014-Pre Commercial sent [phone] [place] [address] (Home) [place] [id number] Tracy Butt Transplant Self 1950 [phone] [facility] [address] (Home) [place] [id number] Advance Directives For more information, please contact: [phone] Type Date Recorded Patient Engineering Coordinator Explanati on Advance Directives, Living Will and Medical Power of Level Glass Forming Machine Operator Advance Directives, 07/15/2019 12:00 AM Medical P ower of Living Will and Level Glass Forming Machine Operator and Dir ective Medical Power of to Physicians Level Glass Forming Machine Operator
--- OUTSIDE RECORDS SUMMARY | 2020-08-08 20:20 | XMS REPORT | Clinical Summary ---
:1950 Author Organization [facility] Address [address] [place] [address] Care Team Providers Name Role Phone Unavailable [...] PNEUMOCOCCAL 65+ YRS (1 of 1 - [id number]) 2014 MEDICARE ANNUAL WELLNESS (YEAR 2 or FIRST YEAR if no 04/30/2015 IPPE) INFLUENZA VACCINE (#1) 2020 Results Not on fileafter 08/08/2019 Insurance Payer Benefit Plan / Subscriber ID Effective Dates Phone Addre ss Type Group MEDICARE MEDICARE A B [id number] 2014-Presen Medicare t [facility] GENERIC MEDICARE [id number] 2017-Present [employer] SUPPLEMENT/ILENE SUPPLEMENT VIDUAL
--- OUTSIDE RECORDS SUMMARY | 2020-08-08 20:21 | XMS REPORT | Continuity of Care Document ---
:1950 Author Organization [facility] t Address [address] [place] [address] Care Team Providers Name Role Phone Asked, [...] Expiration Date Sour ce Number MEDICAREMEDICARE PART [id number] 2014 Jem mikaela Asa AND 00:00:00 Baptism [id number] 2014 -MYRNA AyoubMedicare COMMERCIAL MISCMISC [id number] 2014 [place] [id number] 00:00:00 Met roberson 2013-Shahla rcial Problems Condition Condition Condition Status Onset Resolution Last Treating Co mments Source Name Details Category Date Date Treatment Clinician Date ANEMIA Diagnosis Active 2019-11-22 Mem oria 11-16 10:11:00 l ANEMIA 00:00: Sylvester 00 [facility] stage CKD stage Disease Active Radha ston 4 due to 4 due to 12-16 Method i type 2 type 2 00:00: st diabetes diabetes 00 mellitus mellitus Elevated Elevated Disease Active [place] antibody antibody 6-20 Method i levels levels 00:00: st 00 Hypertensi Hypertensi Disease Active [place] on 2 Methodi 00:00: st 00 DM2 DM2 Disease Active López (diabetes (diabetes 2-13 Meth doroteo mellitus, mellitus, 00:00: st type 2) type 2) 00 N18.3 - Diagnosis Active 2015-11-26 Me moria "CHRONIC 10-17 16:02:00 l KIDNEY N18.3 - 00:01: [place] DISEASE, "CHRONIC 00 STAGE" KIDNEY DISEASE, STAGE" Active 10/18/2015 CLAUDIA Gutierrezland ARANESP 60 Diagnosis Active 2016-03-13 Memoria MCG, 10-01 07:39:00 l CPT-76670, ARANESP 00:00: Her young D63.1 60 MCG, 00 CPT-81056, D63.1 Active 10/02/2015 [facility] DENSE Diagnosis Active 2015-10-04 Mem oria BREAST 09-20 12:23:00 l DENSE 00:00: Sylvester BREAST 00 Active 09/21/2015 [facility] SCREENING Diagnosis Active 2015-09-07 Memoria 3- 12:30:00 l 00:00: [place] SCREENING 00 Active 08/30/2015 [place] SCREENING Diagnosis Active 2015-09-30 Memoria MAMMO - 15:43:00 l 00:00: Sylvester SCREENING 00 MAMMO Active 08/27/2015 [facility] CPT 03119, Diagnosis Active 2016-01-24 Memoria ANEMIA IN 2- 12:01:00 l CKD D63.1 CPT 00:00: [place] [address], 00 ANEMIA IN CKD D63.1 Active 08/08/2015 [facility] Anemia Problem Resolve 2019-11-24 Sebastian dutch (disorder) d 22:59:49 l Anemia [place] (disorder) Resolved Problem 11/24/2019 Rusty [facility] Chronic Problem Resolve 2019-11-24 Mem oria renal d 22:59:49 l impairment Chronic Her young (disorder) renal impairment (disorder) Resolved Problem 11/24/2019 Rusty Red [facility] Retinopath Problem Resolve 2019-11-24 Memoria y d 22:59:49 l (disorder) Paolo n Retinopath y (disorder) Resolved Problem 11/24/2019 Rusty Red [facility] Peripheral Diagnosis Active 2016-04-10 Memoria vascular 04:16:47 [...] Active 2016-04-10 Memoria of breath 04:16:47 l [place] Shortness of breath Active Diagnosis 04/10/2016 Chan Dorman MD, PA Screening Diagnosis Active 2016-04-10 Memoria for 04:16:47 l cardiovasc Paolo n ular Screening disorders for cardiovasc ular disorders Active Diagnosis 04/10/2016 Chan Dorman MD, PA Hypertensi Problem Active 2016-04-10 M emoria ve heart 04:16:47 l disease Sylvester without Hypertensi heart ve heart failure disease without heart failure Active Problem 04/10/2016 Chan Dorman MD, PA Pure Diagnosis Active 2016-04-10 Mem oria hyperchole 04:16:47 l sterolemia Pure Paolo n hyperchole sterolemia Active Diagnosis 04/10/2016 Chan Dorman MD, PA Anemia of Problem Active 2019-11-24 Me moria chronic 22:59:49 l renal Anemia [place] failure of chronic (disorder) renal failure (disorder) Active Problem 11/24/2019 YUSRA Rusty Red [facility] R06.02 Diagnosis Active 2015-08-09 Mem oria 16:58:00 l R06.02 [place] Active [place] SHORTNESS Diagnosis Active 2015-08-09 Memoria OF BREATH 16:58:00 l [place] SHORTNESS OF BREATH Active [facility] ANEMIA IN Diagnosis Active 2016-01-24 Memoria CHRONIC 12:01:00 l KIDNEY ANEMIA [place] DISEASE IN CHRONIC KIDNEY DISEASE Active [place] ENCNTR Diagnosis Active 2015-09-07 Mem oria SCREEN 12:30:00 l MAMMOGRAM ENCNTR Rae nn FOR SCREEN MALIGNANT MAMMOGRAM NE FOR MALIGNANT NE Active [place] INCONCLUSI Diagnosis Active 2015-10-04 Memoria VE 12:23:00 l MAMMOGRAM Sylvester INCONCLUSI VE MAMMOGRAM Active [facility] ANEMIA, Diagnosis Active 2019-11-22 Me moria UNSPECIFIE 10:11:00 l D ANEMIA, Sylvester UNSPECIFIE D Active [facility] Allergies, Adverse Reactions, Alerts Allergy Allergy Status Severity Reaction(s) Onset Inactive Treating Comm ents Source Name Type Date Date Clinician Chloramp Propensi Active Anaphylaxis 2017-06 "closed [place] henicol ty to 0-29 my Methodi adverse 00:00: throat, st reaction 00 terrible s to rash" drug Penicill Propensi Active Anaphylaxis 2017-06 "closed [place] ins ty to 0-29 my Methodi adverse [...] dutch in in Available 8-19 l 00:00: [place] 00 penicill penicill Active Memori a ins ins l [place] chloramp chloramp Active Memori a henicol henicol l Sylvester Family History Family Member Diagnosis Comments Start Date Stop Date Source Natural mother Heart disease [place] [facility] Natural mother Hypertension [place] [facility] Natural mother Cancer [place] [facility] Natural mother Diabetes [place] [facility] Natural sister Cancer [place] [facility] Natural father Cancer [place] [facility] Social History Social Habit Start Date Stop Date Quantity Comments Source Sex Assigned At [facility] ethodist Tobacco use and 2019-05-17 2019-05-17 Never used [facility] ethodist exposure 00:00:00 00:00:00 Alcohol intake 2018-04-13 2018-04-[address] [facility] - 00:00:00 00:00:00 non-drinker of Medical Ce nter alcohol (finding) TobaccoUse: 2016-02-15 2016-02-15 [facility] Herm maribell 00:00:00 00:00:00 Smoking Status Start Date Stop Date Source Never smoker Rene tang Medications Ordered Filled Start Stop Current Ordering [...] tab, PO, l tablet 14:56: Daily, # [place] 00 30 tab, 0 Refill(s) Brimonidine 2019-0 Yes 1 drp, Sebastian dutch tartrate 2 5-26 OPTH, Q8H, l MG/ML 14:56: # 5 mL, 0 Sylvester Ophthalmic 00 Refill(s) Solution Ketorolac 0 Yes 1 drp, Memori a Tromethamin 5-26 BOTH EYES, l e 5 MG/ML 14:56: QID, PRN Herm maribell Ophthalmic 00 Itching, # Solution 5 mL, 0 [Acular] Refill(s) hydrALAZINE 2018-06 Yes 100mg Q.5D Take 100 [place] (APRESOLINE 1-19 mg by Methodi ) 100 MG 11:08: mouth 2 st tablet 37 (two) times a day. losartan 2018-06 Yes 50mg QD Take 50 mg Radha stoprimitivo (COZAAR) 50 -19 by mouth Meth doroteo MG tablet 11:08: daily. st 37 keTOROlac 2018-06 Yes 1[drp] Q.5D Administer Rene (ACULAR LS) 07-17 1 drop to Met hodi 0.4 % 11:08: both eyes st ophthalmic 37 2 (two) solution times a day. iron fum,ps 2018-06 Yes QD Take by Radha ston cmp/vit 07-17 mouth Methodi C/niacin 11:08: daily. st (INTEGRA 37 ORAL) linaGLIPtin 2018-06 Yes 5mg QD Take 5 mg [place] (TRADJENTA) 07-17 by mouth Meth doroteo 5 mg tablet 11:08: daily with st 37 breakfast. epoetin 2018-06 Yes [id number] Inject [place] 07-17 30,000 Methodi [...] Default OP ins calcium 2018-06 Yes 667mg Q.[id number] Take 667 Ló[place] acetate 07-17 [id number] mg by Metho di (PHOSLO) 11:05: 3D [...] Take 20 mg [place] (LASIX) 20 07-17 by mouth Metho di mg tablet 11:05: as needed. st 09 carvedilol 2017-06 Yes 25mg Take [address] (COREG) 25 0-15 by mouth 2 Lily es - MG tablet 15:59: (two) Medical 36 times Center daily with breakfast and dinner. hydrALAZINE 2017-06 Yes 100mg Q.[id number] Take [address] (APRESOLINE 0-15 [id number] mg by L ukes - ) 100 [...] mg 36 daily. Center (950 mg) tablet glimepiride 2017-06 Yes 2mg Q.5D Take [address] (AMARYL) 2 0-15 by mouth 2 Lily es - MG tablet 15:59: (two) Medical 36 times Center daily. Advair 2015-06 Yes [place] 1 puff Memori a Diskus 0-13 Al-Azzeh l 04:16: Sylvester 47 Nasonex 2015-06 Yes [place] 2 sprays Mem oria 0-13 Al-Azzeh in each l 04:16: nostril [place] 47 Spironolact 2015-06 Yes [place] 1 tablet Memoria one 0-13 Al-Azzeh l 04:16: Sylvester 47 Januvia 2015-06 Yes [place] 1 tablet Mem oria 0-13 Al-Azzeh l 04:16: [place] 47 Glimepiride 2015-06 Yes [place] 1 tablet Memoria 0-13 Al-Azzeh with l 04:16: breakfast Sylvester 47 or the first main meal of the day Atorvastati 2015-06 Yes [place] 1 tablet Memoria n Calcium 0-13 Al-Azzeh l 04:16: [place] 47 Omeprazole 2015-06 Yes [place] 1 tablet Memoria 0-13 Al-Azzeh l 04:16: [place] 47 HydrALAZINE Yes [place] 1 tablet Memoria HCl 8-19 Al-Azzeh l 00:00: Isosorbide Yes [place] 1 tablet Memoria Dinitrate 8-19 Al-Azzeh l 00:00: Carvedilol Yes [place] as Sebastian dutch 5-05 Al-Azzeh directed l 00:00: Carvedilol No [place] 1 tablet Memoria 5-05 Al-Azzeh l 00:00: Carvedilol 0 Yes [place] as Sebastian dutch 5-05 Al-Azzeh directed l 00:00: Aranesp No Notes: Memoria 5-04 (Same as: l 18:00: Aranesp) Non-formul [place]osevelt Aranesp No Notes: Memoria 4-19 (Same as: l 17:00: Aranesp) Non-formul [place] Amlodipine No [place] 1 tablet Memoria Besylate 4-13 Al-Azzeh l 00:00: 00 Aranesp No Notes: Memoria 4-06 (Same as: l 16:00: Aranesp) [place] 00 Non-formul roosevelt Aranesp No Notes: Memoria 3-21 (Same as: l 18:00: Aranesp) Sylvester 00 Non-formul roosevelt atorvastati Yes PO, Memori a n 3-04 Bedtime, 0 l 01:50: Refill(s) Sylvester 00 Coreg Yes PO, BID, 0 Memori a 3-04 Refill(s) l 01:50: Sylvester 00 Spironolact Yes 25 mg = 2 M emoria one 304 tab, PO, l 01:50: Daily, # Sylvester 00 60 tab, 0 Refill(s) glimepiride Yes PO, Daily, Memoria 3-04 0 l 01:50: Refill(s) [place] Janumet Yes PO, BID, 0 Sebastian dutch 3-04 Refill(s) l 01:50: [place] 00 Aranesp No Notes: Memoria 3-03 (Same as: l 19:00: Aranesp) [place] 00 Non-formul [place]osevelt Aranesp No Notes: Memoria 2-12 (Same as: l 19:00: Aranesp) [place] 00 Non-Formul roosevelt Vital Signs Vital Name Observation Time Observation Value Comments Source Height 2019-11-22 14:31:00 160.02 cm [facility] [place] Weight 2019-11-22 14:31:00 [facility] [place] BMI Calculated 2019-11-22 14:31:00 Memori al Sylvester Weight 2016-02-15 19:15:00 [facility] Sylvester Heart Rate 2016-02-15 19:15:00 [facility] [place] Diastolic (mm Hg) 2016-02-15 19:15:00 Mem orial Sylvester Systolic (mm Hg) 2016-02-15 19:15:00 Sebastian rial [place] Weight 2015-11-01 16:00:00 [facility] Sylvester Heart Rate 2015-11-01 16:00:00 [facility] Sylvester Diastolic (mm Hg) 2015-11-01 16:00:00 Mem orial Sylvester Systolic (mm Hg) 2015-11-01 16:00:00 Sebastian paz [place] Weight 2015-10-03 15:15:00 [facility] [place] BMI Calculated 2015-10-03 15:15:00 Carina crooks [place] Height 2015-10-03 15:15:00 165.1 cm [facility] [place] Height 2015-08-13 21:21:00 165.1 cm [facility] Sylvester BMI Calculated 2015-08-13 21:21:00 Carina crooks Sylvester Weight 2015-08-13 21:21:00 [facility] Procedures Procedure Date / Time Performed Performing Clinician Nati CANALES BSO - Total abdominal 1997-06-29 06:00:00 Ak morial Sylvester hysterectomy and bilateral salpingo-oophorectomy Back care [facility] Plan of Care Planned Activity Planned Date Details Comments Source Future Scheduled 2020-02-28 INFLUENZA VACCINE (#1) [facility] Test 00:00:00 [code = INFLUENZA Medical Ce nter VACCINE (#1)] Future Scheduled 2020-01-28 INFLUENZA VACCINE [place] [facility] Test 00:00:00 [code = INFLUENZA VACCINE] Future Scheduled 2015-04-[address] [facility] - Test 00:00:00 WELLNESS (YEAR 2 or Medical Center FIRST YEAR if no IPPE) [code = MEDICARE ANNUAL WELLNESS (YEAR 2 or FIRST YEAR if no IPPE)] Future Scheduled 2014 PNEUMOCOCCAL 65+ YRS [facility] - Test 00:00:00 (1 of 1 - Medical Center [id number]) [code = PNEUMOCOCCAL 65+ YRS (1 of 1 - [id number] PCV13)] Future Scheduled 1999 BREAST CANCER [place] [facility] Test 00:00:00 SCREENING [code = BREAST CANCER SCREENING] Future Scheduled 1999 COLONOSCOPY SCREENING [place] [facility] Test 00:00:00 [code = COLONOSCOPY SCREENING] Future Scheduled 1999 SHINGLES VACCINES (#1) [place] [facility] Test 00:00:00 [code = SHINGLES VACCINES (#1)] Future Scheduled 1965 COVID-19 VACCINE (1 of [place] [facility] Test 00:00:00 2) [code = COVID-19 VACCINE (1 of 2)] Future Scheduled 1959 DIABETES: RETINAL EYE [place] [facility] Test 00:00:00 EXAM [code = DIABETES: RETINAL EYE EXAM] Future Scheduled 1959 DIABETIC FOOT EXAM [place] [facility] Test 00:00:00 [code = DIABETIC FOOT EXAM] Future Scheduled [address] [facility] - Test 00:00:[address] [facility] (procedure) [code = 859943045] Future Scheduled [address] [facility] - Test 00:00:00 malignant neoplasm of [facility] colon (procedure) [code = 614927682] Encounters Start End Encounter Admission Attending Care Care Encounter Source Date/Time Date/Time Type Type Clinicians Facility Department ID 2019-11-22 2019-11-22 Outpatient IFRAH Galdamez [facility] [id number] 10:10:00 23:59:00 Omakt Juarez 2019-11-22 2019-11-22 Outpatient [facility] [id number] [facility] 10:10:00 10:10:00 2019-07-13 2019-07-13 Outpatient NIKOS [facility] [id number] [address] [place] [address] 00:00:00 00:00:00 JESSICA [address] 2016-02-15 2016-02-15 Outpatient Chan Giles [id number] [facility]Clinic 14:15:00 14:15:00 Dandy Dorman MD, valeriy Crawford MD, PA PA 2015-11-01 2015-11-01 Outpatient Chan Giles [id number] eClinic 11:00:00 11:00:00 Dandy Dorman MD, valeriy Crawford MD, PA PA 2015-10-02 2015-10-31 Outpatient Rusty SE [facility] [id number] 12:40:00 23:59:00 , Ameena 2015-10-16 2015-10-16 Outpatient Chan Giles [id number] eClinic 10:00:00 10:00:00 Dandy Dorman MD, valeriy Crawford MD, PA PA 2015-10-04 2015-10-04 Outpatient HashChad SE [facility] [id number] 12:22:00 23:59:00 , Ameena 2015-08-30 2015-09-28 [id number] 12:18:00 23:59:00 , Ameena 00 2015-09-07 2015-09-07 Outpatient Rusty MHSE [facility] [id number] 12:19:00 23:59:00 , Ameena 01 2015-08-22 2015-08-22 Outpatient VIVIAN SimpsonP OIP [id number] 10:14:00 23:59:00 Logan Ojeda 00 2015-08-09 2015-08-09 [place] [id number] 16:46:00 23:59:00 Mohammad 42 Fasihuddin Results Test Description Test Time Test Comments Results Result Comments Source HEMATOLOGY 2019-11-22 Normal [facility] 14:50:00 (11/22/19 9:50 Sylvester AM) HEMATOLOGY 2019-11-22 Normal [facility] 14:50:00 (11/22/19 9:50 Sylvester AM) HEMATOLOGY 2019-11-22 2.2 [facility] 14:50:00 Sylvester HEMATOLOGY 2019-11-22 7.2 Memorial 14:50:00 Sylvester HEMATOLOGY 2019-11-22 3.01 Memorial 14:50:00 [place] HEMATOLOGY 2019-11-22 10.0 Memorial 14:50:00 Sylvester HEMATOLOGY 2019-11-22 29.5 Memorial 14:50:00 Sylvester HEMATOLOGY 2019-11-22 98.0 [facility] 14:50:00 Sylvester HEMATOLOGY 2019-11-22 14:50:00 Test Item Value Reference Range Interpretation Comme nts MCH (test code = MCH) 33.2 pg 27.0-31.0 Memorial [id number] 14:50:0033.9[facility]ann[facility]MATOLOGY 2019-11-22 14:50:0016.0[facility] UqvhrzoYLNXRHPHTB6303-46-51 14:50:04331Lrypyebr NazpvvxJFLENGQQYD3431-44-82 14:50:008.3[facility] HcxurssOYAMFARRCG3064-35-25 14:50:006.0[facility] QnfeeveELHYKKSWMZ3685-73-68 14:50:000.6[facility] [place] GUBGXYXYVO1098-28-58 14:50:000.3[facility] SfjabmnQZDKQAXVAG3777-37-65 14:50:000.1 Memorial TgobczaZLRXQDTBBU6461-55-49 14:50:000.1[facility] HermannHEMATOLOGY 2019-11-22 14:50:0076.0[facility] QqlxagaDTJUEUWUGM7764-66-91 14:50:007.0[facility] DlibgwnASJKSHFIKW2818-78-87 14:50:009.0[facility] IttbanaFFZPAGNVAN1827-58-07 14:50:004.0[facility] KedxiylYDXFYJUVWE0208-01-53 14:50:002.0[facility] Sylvester FKVNERNUKN3198-45-18 14:50:002.0[facility] OnamhmcBMYYDDIYUR7130-77-69 14:50:000.0 [facility] PdeuodwTJKLWIJBES1349-72-34 16:45:00 Test Item Value Reference Range Interpretation Comments PT (test code = PT) 13.5 s 12.0-14.7 [facility]8057-37-81 16:45:00 Test Item Value Reference Range Interpretation Comments INR (test code = INR) 1.03 1 0.85-1.17 [facility]MLADDKCEH1460-93-60 16:45:00Not Detected (11/18/19 11:45 AM) [facility] [id number] 14:18:00 Test Item Value Reference Range Interpretation Comments POC-GLUCOSE METER 190 mg/dL 70-110 H TESTED AT [facility] 7200 ([facility]) (test code [place] E BLDG A = 1538) [facility] 7703 0
[2020-08-08 20:36] VITALS: TEMP 97.8
[2020-08-08 20:39] VITALS: BP 143/76; O2SAT 100
== END 2020-08-08 20:31 | disposition home or self-care (01) ==
LOC: ER 16:52
DX: R51.9 Headache, unspecified (principal); Z96.652 Presence of left artificial knee joint; I10 Essential (primary) hypertension; E11.9 Type 2 diabetes mellitus without complications; H92.09 Otalgia, unspecified ear; N28.9 Disorder of kidney and ureter, unspecified; D64.9 Anemia, unspecified
CPT/HCPCS: 85025; 80048; 36415; 85610; 81003; 70450; 70490; 96375; 96374; 99284; J2765; J2550; J1200; J2175

== ENCOUNTER 2020-08-09 10:15 | Day surgery (SDC) | payer OTHER ==
[2020-08-09] MEDS ORDERED: NA CHLORIDE 0.9% 500 ML ONE (10:52)
[2020-08-09] MEDS ORDERED: CEFAZOLIN/SWI 1gm 0 GM/0 ML SYR ONE (10:53)
[2020-08-09 11:01] LABS: Basophils % 0.7 % (0-1.3); Hematocrit 27.7 % (36.0-45.0); Lymphocytes % 15.2 % (15.3-44.8); MPV 9.5 fL (7.6-11.3); RBC Red Blood Cell Count 2.89 M/uL (3.86-4.86)
[2020-08-09] MEDS ORDERED: NA CIT/CITRIC AC 30 ML ORAL UDC ONE ×2 (11:05→11:07)
[2020-08-09 11:09] LABS: Potassium 4.9 mmol/L (3.5-5.1)
[2020-08-09] MEDS ORDERED: FENTANYL CITR 250 MCG/5 ML ONE (11:13)
[2020-08-09] MEDS ORDERED: dexAMETHasone 10 MG/ML VIAL ONE (11:13)
[2020-08-09] MEDS ORDERED: LIDOCAINE 2% MPF 5 ML VIAL ONE (11:13)
[2020-08-09] MEDS ORDERED: MIDAZOLAM HCL 2 MG/2 ML INJ ONE (11:13)
[2020-08-09] MEDS ORDERED: ROCURONIUM 50 MG/5 ML VIAL IV ONE (11:13)
[2020-08-09] MEDS ORDERED: propofoL 200 MG/20 ML VIAL IV ONE (11:13)
[2020-08-09] MEDS: BUPIVACA 0.25%/EPI 0.0005% MDV 50 ML VIAL ONE ×2 (11:31→12:26)
[2020-08-09] MEDS: HEPARIN 5000 UNIT/ML 1 ML VIAL ONE ×2 (11:31→12:35)
[2020-08-09] MEDS ORDERED: NS 0.9% VIAL 10 ML ONE (11:38)
[2020-08-09] MEDS ORDERED: NA CHLORIDE 0.9% 100 ML IV ONE (11:39)
[2020-08-09] MEDS ORDERED: CLINDAMYCIN INJ 600 MG in NA CHLORIDE 0.9% 50 ML IV ONE (12:00)
--- NOTE | 2020-08-09 12:58 | RAD REPORT ---
EXAM DESCRIPTION: RAD - Fluoroscopy <1 Hour - 08/09/2020 12:52 pm FINDINGS: There were 7 portable C-arm views submitted from a fluoroscopic assisted placement of a le ft side dialysis catheter. Images show stepwise placement of the catheter. No suspicious or unexpecte d finding. Fluoro time was 0.3 minutes. Cumulative dose was 3.95 mGy.
--- NOTE | 2020-08-09 13:39 | P.OP ---
Preoperative diagnosis: Hemodialysis Catheter Dysfunction, ESRD Postoperative diagnosis: Hemodialysis Catheter Dysfunction, ESRD Primary procedure: Placement of LEFT internal jugular tunnelled hemodialysis catheter Secondary procedure: flouroscopy and ultrasound guidance used, micro set used Other procedure(s): Laparoscopic peritoneal dialysis catheter placement Estimated blood loss: <5cc Specimen: None Findings: Adhesions from small bowel to anterior abdominal scar Complications: None Drain(s): Other (Aaron Regular Peritoneal Dialysis Catheter) Transferred to: Recovery Room Condition: Good
--- NOTE | 2020-08-09 14:20 | RAD REPORT ---
EXAM DESCRIPTION: RAD - Chest Single View - 08/09/2020 2:11 pm CLINICAL HISTORY: s/p hemodialysis cath replacement COMPARISON: , AP chest August 01 delete TECHNIQUE: AP portable chest image was obtained 08/09/2020 2:11 pm . FINDINGS: Normal a right-sided catheter has been removed. Left jugular dialysis catheter has been pl aced. Short arm is in the distal portion of the brachiocephalic vein with the long arm in the proxima l SVC. No suspicious bend or kink of the tubing. No pneumothorax. Heart size is normal. No measurable pleural effusion and no pneumothorax. No acute bony abnormality s een. No acute aortic findings suspected. IMPRESSION: Left-sided hemodialysis catheter in good position. No pneumothorax.
[2020-08-09] MEDS ORDERED: MEPERIDINE HCL 25 MG/ML SYR ONE (14:41)
[2020-08-09] MEDS ORDERED: HYDROCODONE/APAP 7.5/325 MG TAB ONE (15:46)
[2020-08-09 17:04] VITALS: BP 187/67; TEMP 97.3; O2SAT 100
--- NOTE | 2020-08-09 20:37 | OP ---
Date of Procedure: 08/09/2020 Surgeon: Gale Laird MD, Brief History Of Present Illness: The patient is a 70-year-old female known to me from previous admi ssion. She was admitted at that time for end-stage renal disease, acute on chronic kidney dysfunctio n, as such she was deemed appropriate for hemodialysis. I placed a right internal jugular hemodialys is catheter, which functioned well for the last week. However, yesterday she noted during dialysis s he started developing right-sided headache, right ear pain and neck tightness and her flow on the jacqui lysis catheter was decreased. As such, I determined this is likely due to catheter dysfunction and o pted for discussion of replacement of the tunneled hemodialysis catheter on the left internal jugular position as well as removal of the right internal jugular hemodialysis catheter. Additionally, yas ent opted for placement of peritoneal dialysis catheter. She had considered this previously but had some gastroenteritis, which ultimately resolved and as such, she was deemed appropriate for placement of peritoneal dialysis at this point. Preoperative Diagnoses: 1.Hemodialysis catheter dysfunction. 2.End-stage renal disease and desire for peritoneal dialysis. Postoperative Diagnoses: 1.Hemodialysis catheter dysfunction. 2.End-stage renal disease and desire for peritoneal dialysis. Procedure Performed: 1.Placement of left internal jugular hemodialysis catheter using fluoroscopy and ultrasound guidance . Micro set was used for cannulation. 2.Laparoscopic adhesiolysis. 3.Laparoscopic placement of Merit peritoneal dialysis catheter in the low pelvic position. Estimated Blood Loss: Less than 5 cc. Specimen: None. Findings: 1.Adhesions of small bowel to previous anterior scar. No hernia appreciated. 2.Dark red nonpulsatile blood returned on hemodialysis portion and ultrasound guidance verified posi tion along with fluoroscopy in the internal jugular with confluence of the SVC during placement of th e left IJ hemodialysis catheter. Complications: None. Drains/implants: Merit regular-sized peritoneal dialysis double-cuffed catheter placed in the pelvis . Disposition: The patient transferred to recovery room in good condition. Procedure In Detail: After informed consent was obtained, patient was brought to the operating room, prepped and draped in the usual fashion after adequate anesthesia was achieved. I placed the patien t in steep Trendelenburg position. Using ultrasound guidance, I located the internal jugular vein an d cannulated on the first attempt using the microintroducer set after appropriately anesthetizing the skin with 0.25% Marcaine with epinephrine. The microwire was then advanced into the SVC at this poi nt and position was verified with fluoroscopy. At this point, I found a tract on the chest wall that would be a good landing spot for the catheter. I sized a 23 cm straight HemoSplit catheter and brou ght onto the field. At this point I using a tunneling device prepared the catheter. I made an incis ion in the left chest wall. At this point using the tunneling device after appropriately anesthetizi ng the skin and tract, brought the catheter through the insertion site after making a small ulisses inci sammy over the wire. At this point, the catheter was brought out and the cuff was introduced into the chest as the catheter was along the track over the clavicle. At this point, I performed insertion o f the microintroducer sheath and the microwire was removed. At this point, the standard wire was rem evangelist after removing the inner sheath of the microintroducer sheath. At this point, position was once again verified using fluoroscopy and the wire was found to be at the confluence of the SVC. As such , dark red nonpulsatile blood was returned. I removed the microintroducer sheath and performed seque ntial dilatation using Seldinger technique over the wire and ultimately placed the introducer sheath into the jugular vein. At this point, I removed the wire and placed the catheter in through the intr oducer sheath after removing the inner cannula as well and the catheter was placed at the confluence of the SVC. At this point, the catheter was tested and found to have good withdrawal and flush of sa line at this point without any resistance and the catheter position was verified once again with fluo roscopy. At this point, I irrigated the skin incisions and closed the neck incision with an interrup gale 3-0 nylon suture and the catheter was secured to the chest wall with the same set of 3-0 nylon hughes ture. At this point, a sterile dressing was placed over top. I then turned my attention to the righ t internal jugular catheter, which was already placed previously. I cut the sutures at this point, p laced the patient in steep Trendelenburg position, and while holding pressure at the insertion site a nd the exit site, removed this catheter and sent it off the back table. At this point, the patient w as brought in the head up position while pressure was held for approximately 5 minutes. At this poin t, the skin incision was copiously irrigated and closed with an additional 3-0 nylon suture and no he mostatic maneuver required. No hematomas were appreciated. Sterile dressings were then placed over the top of this area. The patient was then completely re-prepped and draped in the usual sterile fas hion, and I turned to begin the peritoneal dialysis catheter insertion portion. I then anesthetized the skin over the left upper quadrant with 0.25% Marcaine and placed an optical 5 mm trocar under dir ect visualization without complication. Insufflation was obtained with 15 mmHg at this time. I insp ected the abdomen at this point and found that there were adhesions from the small bowel to the anter ior abdominal wall near her previous scar. I performed an adhesiolysis using a combination of sharp dissection with scissors and blunt dissection with the [place] retractor at this point. P rior to this, I made an additional stab incision in the left lower quadrant and placed a 5 mm trocar allowing me to perform the adhesiolysis as described above. At this point, 2 trocars were placed. I used the Stencil device from ididwork catheter and sizing it from the level of the pubic tubercle. I t hen demarcated the patient's abdomen for the regular size Merit peritoneal dialysis double-cuffed cat heter. At this point after marking the exit site as well, I then made an incision following the [facility] late guideline and placed the introducer sheath and a 45-degree angle toward the coccyx. At this poi nt, I removed the inner portion of the introducer sheath and placed the catheter over the introducer sheath and used a dilator after lubricating appropriately to dilate up the tract. At this point, the catheter was then introduced into the rectus sheath with the first cuff at this point and pointing t he catheter so that the line of demarcation on the catheter was on the downside and the catheter was pointing toward the right with a gentle curl. At this point, I removed the inner sheath stylet from the catheter and placed the tunneling device on this at this point. I then tunneled the device towar d the right upper side from the previously marked location and brought it out through the skin. At t his point, the catheter had a cap placed on the end and I inserted approximately 20 cc of fluid and r eturned almost all of that fluid 2 cc short of that. The catheter was functional and flushed quite e asily at this point. The intraabdominal compartment was inspected 1 last time and no additional lukas uvers were required at this point. At this point, I then desufflated the patient's abdomen under dir ect visualization and removed the 2 trocars. All skin incisions were copiously irrigated. I then cl osed the catheter insertion site using an interrupted 3-0 Vicryl suture and a running 4-0 Monocryl on the subcutaneous layer with good apposition of the tissues. The left lower quadrant and left upper quadrant incision were then closed using 4-0 Monocryl in a running fashion. Dermabond placed over to p. The patient tolerated the procedure well without evidence of complication and was transferred to PACU in good condition. All counts were correct at the end the case. A stat chest x-ray will be per formed to verify position of the described hemodialysis catheter. All counts were correct at the end of the case. JUAN/MOOSE Voice ID: [id number] Report ID: [id number]
== END 2020-08-09 16:40 | disposition home or self-care (01) ==
LOC: OR 10:15
PROVIDERS: ATTEND Surgery
PROC: 05HN33Z Insertion of Infusion Device into Left Internal Jugular Vein, Percutaneous Approach (ICD-10-PCS; 2020-08-09)
PROC: 0WHG43Z Insertion of Infusion Device into Peritoneal Cavity, Percutaneous Endoscopic Approach (ICD-10-PCS; principal; 2020-08-09 11:45)
PROC: 05PY33Z Removal of Infusion Device from Upper Vein, Percutaneous Approach (ICD-10-PCS; 2020-08-09 11:45)
DX: N18.6 End stage renal disease (principal); T85.611A Breakdown (mechanical) of intraperitoneal dialysis catheter, initial encounter; Z99.2 Dependence on renal dialysis; Z88.0 Allergy status to penicillin; Z88.6 Allergy status to analgesic agent; Z91.040 Latex allergy status
CPT/HCPCS: 85025; 80048; 36415; 86900; 86850; 86901; 71045; 36558; 36589; J2704; J1644 ×2; J2250; J3010; J1100; J2175; J7040; 76000; J0690

== ENCOUNTER 2020-09-17 08:52 | Day surgery (SDC) | payer OTHER ==
[2020-09-17] MEDS ORDERED: NA CHLORIDE 0.9% 1,000 ML ONE (09:49)
[2020-09-17] MEDS ORDERED: NA CHLORIDE 0.9% 500 ML ONE (10:02)
[2020-09-17] MEDS ORDERED: FENTANYL CITR 100 MCG/2 ML ONE (10:09)
[2020-09-17] MEDS ORDERED: propofoL 200 MG/20 ML VIAL IV ONE (10:09)
[2020-09-17] MEDS ORDERED: LIDOCAINE 2% MPF 5 ML VIAL ONE (10:09)
[2020-09-17] MEDS ORDERED: LIDOCAINE 1% W/EPI 1:100,000 MDV 20 ML VIAL ONE (10:20)
[2020-09-17] MEDS ORDERED: BUPIVACAINE 0.25% PF 30 ML VIAL ONE (10:21)
--- NOTE | 2020-09-17 11:08 | P.OP ---
Preoperative diagnosis: End Stage Renal Disease Postoperative diagnosis: End Stage Renal Disease Primary procedure: Removal of Tunnelled LEFT IJ Hemodialysis Catheter Anesthesia: MAC + Local Estimated blood loss: <1cc Specimen: Catheter Removed Findings: Cuff well grown Complications: None Transferred to: Recovery Room Condition: Good
[2020-09-17] MEDS ORDERED: LIDOCAINE 1% MPF 30 ML VIAL ONE (11:18)
--- NOTE | 2020-09-17 11:40 | OP ---
Date of Procedure: 09/17/2020 Surgeon: Tyrell Laird MD, Preoperative Diagnosis: End-stage renal disease. Postoperative Diagnosis: End-stage renal disease. Procedure Performed: Removal of tunneled left IJ hemodialysis catheter. Anesthesia: MAC plus local. Estimated Blood Loss: Less than 1 mL. Specimens: Catheter removed. Findings: Cuff well grown. Complications: None. Disposition: The patient was transferred to the recovery room in good condition. Procedure In Detail: After informed consent was obtained, the patient was brought to the operating r oom, prepped and draped in the usual sterile fashion after adequate anesthesia was achieved. I remov ed the previously placed sutures from the hemodialysis catheter. I tugged on the catheter and noted the cuff was grown at this point, so I anesthetized the area at the insertion site and around the cuf f which was easily palpable. This was a left internal jugular placed catheter. At this point, I ernie effie hemostats into the trach and dilated at the trach circumferentially around. I was able to manipu late and remove any ingrown tissue into the cuff with simple blunt dissection with the hemostats. At this point, the patient remained in steep Trendelenburg. I pulled the catheter while holding pressu re at the insertion site and the exit site and placed the catheter on the back table. At this point, I held pressure for 5 minutes with the patient head up position. I then irrigated the insertion sit e and continued to hold pressure at the insertion and exit site. I then closed the exit site with in terrupted 2-0 nylon suture in an interrupted fashion after irrigating it copiously multiple times and it was completely clean. A sterile dressing was then placed over top. The patient tolerated the pr ocedure well without evidence of complication and transferred to PACU in good condition. All counts were correct at the end of the case. TK/MODL Voice ID: [id number] Report ID: [id number]
[2020-09-17 12:07] VITALS: TEMP 97; O2SAT 100
[2020-09-17 12:10] VITALS: BP 136/61
== END 2020-09-17 12:18 | disposition home or self-care (01) ==
LOC: OR 08:52
PROVIDERS: ATTEND Surgery
PROC: 05PY03Z Removal of Infusion Device from Upper Vein, Open Approach (ICD-10-PCS; principal; 2020-09-17 10:45)
DX: Z45.2 Encounter for adjustment and management of vascular access device (principal); N18.6 End stage renal disease; Z99.2 Dependence on renal dialysis; Z20.822 Contact with and (suspected) exposure to COVID-19
CPT/HCPCS: 82947; 36589; U0003; J2704; J3010; J7040; J7030

== ENCOUNTER 2022-03-17 19:27 | Inpatient (IN) | payer OTHER ==
[2022-03-17 21:37] VITALS: BMI 24.9
[2022-03-17] MEDS ORDERED: ACETAMINOPHEN 500 MG TAB PO PRN (23:26)
[2022-03-17] MEDS ORDERED: ALBUTEROL 2.5 MG/3 ML NEB SOL NEB PRN (23:26)
[2022-03-17] MEDS ORDERED: PROMETHAZINE INJ 25 MG/ML AMP IV PRN (23:57)
--- NOTE | 2022-03-18 00:01 | P.HP ---
Certification for Inpatient Patient admitted to: Inpatient With expected LOS: <2 Midnights Patient will require the following post-hospital care: None Practitioner: I am a practitioner with admitting privileges, knowledge of patient current condition, hospital course, and medical plan of care. Services: Services provided to patient in accordance with Admission requirements found in Title 42 Section 412.3 of the Code of Federal Regulations Patient History Date of Service: 03/18/22 Reason for admission: ESRD/SHOB History of Present Illness: Patient is a 71-year-old female with history of ESRD on HD MWF and anemia of chronic disease who is admitted as a transfer from [facility]. Patient states that she was receiving HD today and got very short of breath at the end. She states that this happened last week also, but not as severe. Work-up at [facility] showed elevated BNP and mild CHF on chest x-ray and was subsequently transferred here for further treatment. Her hemoglobin was also low at 7.6. Upon arrival, patient reports that her shortness of breath has resolved and she is resting comfortably. labs here showed a hemoglobin of 5.7. Repeat H&H pending. Patient denies dark stool, hematemesis, or prior GI bleeds. She states she had a colonoscopy and EGD about 2-3 years ago that was WNL. Hemmocult at [place] was negative. She is admitted for further management. Allergies chloramphenicol Allergy (Verified 09/13/20 12:02) Anaphylaxis morphine Allergy (Verified 09/13/20 12:02) Itching/Hives/Rash ondansetron [From Zofran] Allergy (Verified 09/13/20 12:02) Itching/Hives/Rash Penicillins Allergy (Verified 09/13/20 12:02) Anaphylaxis Home Medications: Atorvastatin Calcium 20 mg PO BEDTIME 07/31/20 Carvedilol [Coreg] 25 mg PO BID 07/31/20 Cholecalciferol (Vitamin D3) [Vitamin D3] 5,000 unit PO DAILY 07/31/20 Glimepiride 4 mg PO BIDWM PRN 07/31/20 Ketorolac Opth [Acular 0.5% Opth Drops] 1 drop OPTH DIRECTED 07/31/20 Brimonidine Tartrate [Alphagan P] 5 ml OP PRN PRN 08/09/20 Famotidine [Pepcid] 20 mg PO DAILY 08/09/20 Epoetin [Procrit*] 40,000 units SQ SEECOM PRN 09/13/20 Albuterol Sulfate [Ventolin Hfa] 8 gm IH SEECOM PRN 03/18/22 Amlodipine Besylate 5 mg PO DAILY 03/18/22 Budesonide/Formoterol Fumarate [Symbicort 80-4.5 Mcg Inhaler] 1 puff IN SEECOM PRN 03/18/22 Calcium Acetate 2 cap PO TIDWM 03/18/22 Hydralazine [Apresoline] 25 mg PO BID 03/18/22 Hydrocodone Bit/Acetaminophen [Hydrocodon-Acetaminophen 5-325] 1 tab PO BID PRN MDD 2 03/18/22 Isosorbide Mononitrate [Isosorbide Mononitrate ER] 30 mg PO DAILY 03/18/22 Multivitamin [Daily Kerline] 1 each PO DAILY 03/18/22 Pioglitazone HCl 15 mg PO DAILY PRN 03/18/22 Tizanidine HCl 2 mg PO BEDTIME PRN 03/18/22 - Past Medical/Surgical History Has patient received pneumonia vaccine in the past: Yes Diabetic: Yes -: ESRD-DIALYSIS M/W/F -: NIDDM -: Hypertension -: Anemia chronic disease -: CHRONIC BACK PAIN -: GLUACOMA -: RETINIOPATHY -: SUPERFICIAL BASIL CELL CARCINOMA -: Hysterectomy -: Left total knee -: back surgery -: CATARACT HAMMAD EYES Psychosocial/ Personal History: Patient lives with her daughter and is retired - Family History Mother -: Heart disease, Diabetes, Stroke Father -: Cancer Sister -: Cancer - Social History Smoking Status: Never smoker Alcohol use: No CD- Drugs: No Caffeine use: Yes Place of Residence: Home Review of Systems Respiratory: Shortness of Breath Physical Examination - Vital Signs Temperature: 98.6 F Blood Pressure: 118/63 Pulse: 70 Respirations: 18 Pulse Ox (%): 97 - Physical Exam General: Alert, In no apparent distress HEENT: Atraumatic, PERRLA, EOMI, Sclerae nonicteric Neck: Supple, 2+ carotid pulse no bruit, No LAD, Without JVD or thyroid abnormality Respiratory: Diminished Cardiovascular: Regular rate/rhythm, Normal S1 S2 Gastrointestinal: Normal bowel sounds, No tenderness Musculoskeletal: No tenderness Integumentary: No rashes Neurological: Normal speech, Normal strength at 5/5 x4 extr, Normal tone, Normal affect Assessment and Plan - Problems (Diagnosis) (1) Shortness of breath Current Visit: Yes Status: Acute (2) Anemia Current Visit: Yes Status: Acute Qualifiers: Anemia type: due to chronic kidney disease Chronic kidney disease stage: on chronic dialysis Qualified Code(s): N18.6 - End stage renal disease; D63.1 - Anemia in chronic kidney disease; Z99.2 - Dependence on renal dialysis (3) ESRD (end stage renal disease) on dialysis Current Visit: Yes Status: Chronic (4) Type 2 diabetes mellitus Current Visit: Yes Status: Chronic Qualifiers: Diabetes mellitus retirement insulin use: without watermaster use Diabetes mellitus complication status: with hyperglycemia Qualified Code(s): E11.65 - Type 2 diabetes mellitus with hyperglycemia - Plan -Nephrology consult. Renal diet -Patient has anemia secondary to ESRD. Hgb from [facility] is 7.6. AM labs with hgb 5.7. Repeat verified. Will type and screen and transfuse 2 units PRBC. -ACHS accu checks with mild sliding scale insulin. A1c ordered -Echocardiogram ordered -Monitor and replete electrolytes per protocol -Reconcile and continue home medications -Heparin for VTE ppx -Full code Discharge Plan: Home Plan to discharge in: 48 Hours - Advance Directives Does patient have a Living Will: Yes Does patient have a Durable POA for Healthcare: Yes - Code Status/Comfort Care Code Status Assessed: Yes (Full) Critical Care: No Time Spent Managing Pts Care (In Minutes): 50
[2022-03-18] MEDS: HYDROCODONE/APAP 7.5/325 MG TAB PO PRN ×2 (00:59→14:43)
[2022-03-18 03:58] LABS: Absolute Lymphocytes (CBC) 0.6 K/uL (0.7-4.9); MCV 103.5 fL (80-100); MPV 8.5 fL (7.6-11.3)
[2022-03-18 04:00] LABS: Protime INR 1.07
[2022-03-18 04:13] LABS: Hematocrit 16.5 % (36.0-45.0)
[2022-03-18 04:22] LABS: Albumin 2.8 g/dL (3.4-5.0); Magnesium 2.1 mg/dL (1.8-2.4); Phosphorus 3.4 mg/dL (2.5-4.9); Potassium 4.1 mmol/L (3.5-5.1); Thyroid Stimulating Hormone 3.39 uIU/mL (0.360-3.740)
[2022-03-18 05:02] LABS: Hematocrit 16.6 % (36.0-45.0)
[2022-03-18] MEDS ORDERED: NA CHLORIDE 0.9% 250 ML IV SCH (06:00)
[2022-03-18] MEDS: INSULIN -REGULAR HUMAN 50 UNIT/0.5 ML ML SQ SCH ×4 (07:30→21:00)
[2022-03-18] MEDS ORDERED: HOME MED 1 EA UNK (Brimonidine Tartrate [Alphagan P] 10 ML Drops) OPTH PRN (08:03)
[2022-03-18] MEDS ORDERED: HOME MED 1 EA UNK (Budesonide/Formoterol Fumarate [Symbicort 80-4.5 Mcg Inhaler] 10.2 GM H IH PRN (08:03)
[2022-03-18] MEDS ORDERED: PIOGLITAZONE 15 MG TAB PO PRN (08:03)
[2022-03-18] MEDS ORDERED: HYDROCODONE/APAP 5/325 MG TAB PO PRN (08:03)
[2022-03-18] MEDS ORDERED: TIZANIDINE 4 MG TABLET PO PRN (08:03)
--- NOTE | 2022-03-18 08:03 | P.CNS ---
Date of Consult: 03/18/22 Reason for Consult: ESRD Requesting Physician: yadira nathan Chief Complaint: ESRD/SHOB History of Present Illness: Patient is a 71-year-old female with history of ESRD on HD MWF and anemia of chronic disease who is admitted as a transfer from [facility]. Patient states that she was receiving HD today and got very short of breath at the end. She states that this happened last week also, but not as severe. Work-up at [place] [facility] showed elevated BNP and mild CHF on chest x-ray and was subsequently transferred here for further treatment. Her hemoglobin was also low at 7.6. Upon arrival, patient reports that her shortness of breath has resolved and she is resting comfortably. labs here showed a hemoglobin of 5.7. Repeat H&H pending. Patient denies dark stool, hematemesis, or prior GI bleeds. She states she had a colonoscopy and EGD about 2-3 years ago that was WNL. Hemmocult at [place] was negative. She is admitted for further management. Allergies chloramphenicol Allergy (Verified 09/13/20 12:02) Anaphylaxis morphine Allergy (Verified 09/13/20 12:02) Itching/Hives/Rash ondansetron [From Zofran] Allergy (Verified 09/13/20 12:02) Itching/Hives/Rash Penicillins Allergy (Verified 09/13/20 12:02) Anaphylaxis Home medications list reviewed: Yes Home Medications: Atorvastatin Calcium 20 mg PO BEDTIME 07/31/20 Carvedilol [Coreg] 25 mg PO BID 07/31/20 Cholecalciferol (Vitamin D3) [Vitamin D3] 5,000 unit PO DAILY 07/31/20 Glimepiride 4 mg PO BIDWM PRN 07/31/20 Ketorolac Opth [Acular 0.5% Opth Drops] 1 drop OPTH DIRECTED 07/31/20 Brimonidine Tartrate [Alphagan P] 5 ml OP PRN PRN 08/09/20 Famotidine [Pepcid] 20 mg PO DAILY 08/09/20 Epoetin [Procrit*] 40,000 units SQ SEECOM PRN 09/13/20 Albuterol Sulfate [Ventolin Hfa] 8 gm IH SEECOM PRN 03/18/22 Amlodipine Besylate 5 mg PO DAILY 03/18/22 Budesonide/Formoterol Fumarate [Symbicort 80-4.5 Mcg Inhaler] 1 puff IN SEECOM PRN 03/18/22 Calcium Acetate 2 cap PO TIDWM 03/18/22 Hydralazine [Apresoline] 25 mg PO BID 03/18/22 Hydrocodone Bit/Acetaminophen [Hydrocodon-Acetaminophen 5-325] 1 tab PO BID PRN MDD 2 03/18/22 Isosorbide Mononitrate [Isosorbide Mononitrate ER] 30 mg PO DAILY 03/18/22 Multivitamin [Daily Kerline] 1 each PO DAILY 03/18/22 Pioglitazone HCl 15 mg PO DAILY PRN 03/18/22 Tizanidine HCl 2 mg PO BEDTIME PRN 03/18/22 - Past Medical/Surgical History Diabetic: Yes -: ESRD [facility] (Dr. Kee) -: NIDDM -: Hypertension -: Anemia chronic disease -: CHRONIC BACK PAIN -: GLUACOMA -: RETINIOPATHY -: SUPERFICIAL BASIL CELL CARCINOMA -: Hysterectomy -: Left total knee -: back surgery -: CATARACT HAMMAD EYES Psychosocial/ Personal History: Patient lives with her daughter and is retired - Family History Mother Medical History: Heart disease, Diabetes, Stroke Father Medical History: Cancer Sister Medical History: Cancer - Social History Alcohol use: No CD- Drugs: No Caffeine use: Yes Place of Residence: Home Review of Systems 10-point ROS is otherwise unremarkable General: Weakness Respiratory: Shortness of Breath Physical Examination Temp Pulse Resp BP Pulse Ox 98.6 F 70 18 118/63 97 03/18/22 05:06 03/18/22 05:06 03/18/22 05:06 03/18/22 05:06 03/18/22 05:06 General: In no apparent distress, Oriented x3, Cooperative HEENT: Atraumatic Neck: Supple Respiratory: Diminished Cardiovascular: No edema, Regular rate/rhythm Gastrointestinal: Soft and benign, Non-distended Musculoskeletal: No clubbing, No contractures Integumentary: No rashes, No cyanosis Neurological: Normal speech Laboratory Data (last 24 hrs) 03/18/22 04:33: Hgb 5.7 L*, Hct 16.6 L* 03/18/22 03:11: PT 11.8, INR 1.07, APTT 25.4 03/18/22 03:11: Sodium 138, Potassium 4.1, BUN 49 H, Creatinine 4.59 H, Glucose 281 H, Phosphorus 3.4, Magnesium 2.1, Triglycerides 64, Cholesterol 91, HDL Cholesterol 55, Cholesterol/HDL Ratio 1.65 03/18/22 03:11: WBC 4.80, Hgb 5.7 L*, Hct 16.5 L*, Plt Count 101 L Conclusions/Impression: ESRD -Acute HD today HTN with CKD/ CHF -Continue Coreg -Continue Hydralazine Diastolic CHF, chronic -Daily weight -Acute HD with UF DM II with CKD -RISS Moderate malnutrition with sarcopenia & debility -Continue Nepro Anemia in CKD -Transfuse PRBC today -Retacrit X1 -Evaluate for blood loss CKD MBD -Continue Calcitriol -Continue Phoslo Case reviewed with Dr. Oakley and Dr. Nathan Thank you kindly for the referral
[2022-03-18] MEDS ORDERED: MANNITOL 25% 12.5 GM/50 ML VIAL IV PRN (08:05)
[2022-03-18] MEDS ORDERED: NA CHLORIDE 0.9% 1,000 ML IV PRN (08:05)
[2022-03-18] MEDS ORDERED: EPOETIN ALFA-EPBX 10,000 UNIT/ML VIAL SQ ONE (08:15)
[2022-03-18] MEDS ORDERED: ALBUMIN HUMAN 25% 50 ML IV SCH (09:00)
[2022-03-18] MEDS: HYDRALAZINE HCL 25 MG TABLET PO SCH ×2 (09:00→22:02)
[2022-03-18] MEDS: NEPRO SHAKE 237 ML CAN PO SCH ×2 (09:00→13:33)
[2022-03-18] MEDS ORDERED: VITAMIN D 5,000 UNIT CAP PO SCH (09:00)
[2022-03-18] MEDS ORDERED: ISOSORBIDE MONO SR 30 MG TAB PO SCH (09:00)
[2022-03-18] MEDS ORDERED: HOME MED 1 EA UNK (Cholecalciferol (Vitamin D3) [Vitamin D3] 2000 UNIT Capsule) PO SCH (09:00)
[2022-03-18] MEDS ORDERED: carvediloL 25 MG TAB PO SCH (09:00)
[2022-03-18] MEDS ORDERED: AMLODIPINE 5 MG TAB PO SCH (09:00)
[2022-03-18] MEDS ORDERED: HYDRALAZINE HCL 25 MG TABLET PO SCH (09:00)
[2022-03-18] MEDS: VITAMIN D 5,000 UNIT CAP PO SCH (09:24)
[2022-03-18] MEDS: carvediloL 25 MG TAB PO SCH ×2 (09:24→22:02)
[2022-03-18] MEDS: DOCUSATE NA 100 MG CAP PO SCH ×2 (09:24→21:00)
[2022-03-18] MEDS: CALCITROL 0.25 MCG CAP PO SCH (09:25)
[2022-03-18] MEDS: ISOSORBIDE MONO SR 30 MG TAB PO SCH (09:25)
[2022-03-18] MEDS: FAMOTIDINE 20 MG TAB PO SCH (09:25)
[2022-03-18] MEDS: MULTIVITAMINS,THERAPEUT 1 TAB PO SCH (09:25)
[2022-03-18] MEDS: CALCIUM ACETATE 667 MG TAB PO SCH ×2 (13:33→17:00)
--- NOTE | 2022-03-18 14:01 | P.PN ---
Subjective Date of Service: 03/18/22 Chief Complaint: ESRD/SHOB Patient experiencing diarrhea. About 3 times since this morning. Stool is watery. Physical Examination - Vital Signs Temperature: 98.1 F Blood Pressure: 138/61 Pulse: 76 Respirations: 18 Pulse Ox (%): 92 - Physical Exam General: Alert, In no apparent distress, Oriented x3 HEENT: Mucous membr. moist/pink Neck: JVD not distended Respiratory: Clear to auscultation bilaterally, Normal air movement Cardiovascular: No edema, Regular rate/rhythm, Normal S1 S2 Gastrointestinal: Normal bowel sounds, Soft and benign, No tenderness Musculoskeletal: No swelling Integumentary: No rashes Neurological: Normal strength at 5/5 x4 extr - Studies Laboratory Data (last 24 hrs) 03/18/22 04:33: Hgb 5.7 L*, Hct 16.6 L* 03/18/22 03:11: PT 11.8, INR 1.07, APTT 25.4 03/18/22 03:11: Sodium 138, Potassium 4.1, BUN 49 H, Creatinine 4.59 H, Glucose 281 H, Phosphorus 3.4, Magnesium 2.1, Triglycerides 64, Cholesterol 91, HDL Cholesterol 55, Cholesterol/HDL Ratio 1.65 03/18/22 03:11: WBC 4.80, Hgb 5.7 L*, Hct 16.5 L*, Plt Count 101 L Assessment And Plan - Current Problems (Diagnosis) (1) Anemia in chronic kidney disease Current Visit: Yes Status: Acute (2) ESRD (end stage renal disease) on dialysis Current Visit: Yes Status: Chronic (3) Type 2 diabetes mellitus Current Visit: Yes Status: Chronic Qualifiers: Diabetes mellitus retirement insulin use: without retirement use Diabetes mellitus complication status: with hyperglycemia Qualified Code(s): E11.65 - Type 2 diabetes mellitus with hyperglycemia - Plan No GI bleed. Per report, stool Hemoccult was negative at [place]. Hemoglobin checked on arrival is much lower at 5.7. 2 units PRBC transfusion ordered. Nephrology consulted for hemodialysis. Patient is planned for hemodialysis today. Check vitamin B12 level given macrocytosis. Check post transfusion hemoglobin. Insulin sliding scale for glucose management. Possible discharge in a.m.
[2022-03-18] MEDS: KETOROLAC OPTHALMIC OPTH SCH ×2 (14:30→21:00)
[2022-03-18] MEDS ORDERED: ALBUTEROL 2.5 MG/3 ML NEB SOL NEB PRN (15:00)
[2022-03-18] MEDS ORDERED: ATORVASTATIN 20 MG TAB PO SCH (21:00)
[2022-03-19 05:44] LABS: Absolute Lymphocytes (CBC) 0.6 K/uL (0.7-4.9); Hematocrit 27.7 % (36.0-45.0); Lymphocytes % 8.5 % (15.3-44.8); MCV 97.4 fL (80-100); MPV 8.2 fL (7.6-11.3); RBC Red Blood Cell Count 2.84 M/uL (3.86-4.86)
[2022-03-19 06:03] LABS: Potassium 4.3 mmol/L (3.5-5.1)
[2022-03-19] MEDS: INSULIN -REGULAR HUMAN 50 UNIT/0.5 ML ML SQ SCH ×2 (07:30→11:30)
[2022-03-19 08:56] VITALS: BP 192/81; TEMP 97.8
[2022-03-19] MEDS: DOCUSATE NA 100 MG CAP PO SCH (09:00)
[2022-03-19] MEDS ORDERED: NEPRO SHAKE 237 ML CAN PO SCH (09:00)
[2022-03-19] MEDS: KETOROLAC OPTHALMIC OPTH SCH (09:00)
--- NOTE | 2022-03-19 09:04 | P.DS ---
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 Patient states that she was receiving HD and got very short of breath at the end. She states that this happened a week ago, but not as severe. Work-up at [place] [facility] showed elevated BNP and mild CHF on chest x-ray and was subsequently transferred here for further treatment. Her hemoglobin was also low at 7.6. Patient reported resolution of her shortness of breath on arrival to the medical floor and she was resting comfortably. Labs here showed a hemoglobin of 5.7. Repeat H&H pending. Patient denied dark stool, hematemesis, or prior GI bleeds. She stated she had a colonoscopy and EGD about 2-3 years ago that was WNL. Hemmocult at [place] was negative. She was admitted for further management. Hospital Course: Patient admitted to the medical floor. She has no history of GI bleed. Per report, stool Hemoccult was negative at [place]. Hemoglobin checked on arrival was much lower at 5.7. 2 units PRBC transfusion given. Posttransfusion hemoglobin is 9.6 Nephrology consulted for hemodialysis. Patient underwent hemodialysis x2. Patient with microcytosis but vitamin B12 level is high. Recommended follow-up with hematology for further evaluation of his anemia. Nephrology will also follow-up as an outpatient for further treatment of anemia of chronic kidney disease. Vital Signs/Physical Exam: Temp Pulse Resp BP Pulse Ox 97.8 F 80 16 192/81 H 95 03/19/22 08:00 03/19/22 08:00 03/19/22 08:00 03/19/22 08:00 03/19/22 08:00 General: Alert, In no apparent distress, Oriented x3 HEENT: Mucous membr. moist/pink Neck: Supple, JVD not distended Respiratory: Clear to auscultation bilaterally, Normal air movement Cardiovascular: No edema, Regular rate/rhythm, Normal S1 S2 Gastrointestinal: Normal bowel sounds, Soft and benign, Non-distended, No tenderness Musculoskeletal: No clubbing, No swelling Integumentary: No rashes Neurological: Normal strength at 5/5 x4 extr Laboratory Data at Discharge: WBC 7.40 K/uL (4.3-10.9) 03/19/22 05:35 Hgb 9.6 g/dL (12.0-15.0) L D 03/19/22 05:35 Hct 27.7 % (36.0-45.0) L 03/19/22 05:35 Plt Count 105 K/uL (152-406) L 03/19/22 05:35 PT 11.8 SECONDS (9.5-12.5) 03/18/22 03:11 INR 1.07 03/18/22 03:11 APTT 25.4 SECONDS (24.3-36.9) 03/18/22 03:11 Sodium 136 mmol/L (136-145) 03/19/22 05:35 Potassium 4.3 mmol/L (3.5-5.1) 03/19/22 05:35 BUN 34 mg/dL (7-18) H 03/19/22 05:35 Creatinine 4.06 mg/dL (0.55-1.3) H 03/19/22 05:35 Glucose 141 mg/dL (74-106) H 03/19/22 05:35 Phosphorus 3.4 mg/dL (2.5-4.9) 03/18/22 03:11 Magnesium 2.1 mg/dL (1.8-2.4) 03/18/22 03:11 Triglycerides 64 mg/dL (<150) 03/18/22 03:11 Cholesterol 91 mg/dL (<200) 03/18/22 03:11 HDL Cholesterol 55 mg/dL (40-60) 03/18/22 03:11 Cholesterol/HDL Ratio 1.65 03/18/22 03:11 Home Medications: Atorvastatin Calcium 20 mg PO BEDTIME 07/31/20 Carvedilol [Coreg] 25 mg PO BID 07/31/20 Cholecalciferol (Vitamin D3) [Vitamin D3] 5,000 unit PO DAILY 07/31/20 Glimepiride 4 mg PO BIDWM PRN 07/31/20 Ketorolac Opth [Acular 0.5% Opth Drops*] 1 drop OPTH DIRECTED 07/31/20 Brimonidine Tartrate [Alphagan P] 5 ml OP PRN PRN 08/09/20 Famotidine [Pepcid*] 20 mg PO DAILY 08/09/20 Epoetin [Procrit*] 40,000 units SQ SEECOM PRN 09/13/20 Albuterol Sulfate [Ventolin Hfa] 8 gm IH SEECOM PRN 03/18/22 Amlodipine Besylate 5 mg PO DAILY 03/18/22 Budesonide/Formoterol Fumarate [Symbicort 80-4.5 Mcg Inhaler] 1 puff IN SEECOM PRN 03/18/22 Calcium Acetate 2 cap PO TIDWM 03/18/22 Hydralazine [Apresoline*] 25 mg PO BID 03/18/22 Hydrocodone Bit/Acetaminophen [Hydrocodon-Acetaminophen 5-325] 1 tab PO BID PRN MDD 2 03/18/22 Isosorbide Mononitrate [Isosorbide Mononitrate ER] 30 mg PO DAILY 03/18/22 Multivitamin [Daily Kerline] 1 each PO DAILY 03/18/22 Pioglitazone HCl 15 mg PO DAILY PRN 03/18/22 Tizanidine HCl 2 mg PO BEDTIME PRN 03/18/22 Calcitrol [Rocaltrol*] 0.5 mcg PO DAILY #60 cap 03/19/22 New Medications: Calcitrol [Rocaltrol*] 0.5 mcg PO DAILY #60 cap Diet: Renal Activity: Ad claudia Followup: Willie Kee DO [ACTIVE - CAN ADMIT] - 1 Week Time spent managing pt's care (in minutes): 34
[2022-03-19] MEDS: CALCITROL 0.25 MCG CAP PO SCH (09:08)
[2022-03-19] MEDS: VITAMIN D 5,000 UNIT CAP PO SCH (09:09)
[2022-03-19] MEDS: ISOSORBIDE MONO SR 30 MG TAB PO SCH (09:09)
[2022-03-19] MEDS: HYDRALAZINE HCL 25 MG TABLET PO SCH (09:09)
[2022-03-19] MEDS: carvediloL 25 MG TAB PO SCH (09:10)
[2022-03-19] MEDS: CALCIUM ACETATE 667 MG TAB PO SCH ×2 (09:10→12:01)
[2022-03-19] MEDS: FAMOTIDINE 20 MG TAB PO SCH (09:10)
[2022-03-19] MEDS: MULTIVITAMINS,THERAPEUT 1 TAB PO SCH (09:10)
[2022-03-19] MEDS ORDERED: EPOETIN ALFA-EPBX 10,000 UNIT/ML VIAL SQ ONE (09:45)
[2022-03-19 10:24] VITALS: O2SAT 95
--- NOTE | 2022-03-19 11:35 | P.PN ---
Nephrology note: (S) Pt seen at the start of HD, I had seen pt on HD at the [place] unit Mon prior to this event occurring and pt being referred to the ER by staff. Pt was noted then on my assessment to have lower BP on HD, so UF goal was lowered some and BP meds assessed. Pt was not reporting any CP or dyspnea then. Pt has dialyzed yesterday and is scheduled to dialyze again today. She received 2 units of PRBC yesterday. (O) Vitals reviewed in the EMR General: In no apparent distress, Oriented x3, Cooperative HEENT: Atraumatic Neck: Supple Respiratory: Non tachypnec, b/l air entry, no rhonchi Cardiovascular: No edema, Regular rate/rhythm Gastrointestinal: Soft and benign, Non-distended Musculoskeletal: No clubbing, No contractures Integumentary: No rashes, No cyanosis, Lt UE AVF Neurological: Normal speech Laboratory Data (last 24 hrs) Reviewed in the EMR Conclusions/Impression: ESRD, on HD for several years -HD today to maintain OP schedule, pre dialysis metab profile acceptable. Will f/u a post dialysis standing weight and see if EDW at her unit needs to be revised Hypertensive CKD, accelerated HTN -F.u post HD BP, resume home CCB medication Anemia unspecified -Sharp unexplained drop in Hb levels from level earlier this mo when checked at her unit and was > 10 on 9.7. With the symptoms reported on HD Mon, unclear if pt could have had a hemolysis event, but I've reviewed with staff and they do not cite any obvious incidents and there is no wider clinic reports of drop in Hb levels. W/u for hemolysis or anemia was not performed on admission here it appears. Pt s/p 2 units with appropriate increase in Hb. Will order weekly H/H checks at the OP unit and will suspend any Heparin on HD. Diastolic CHF, chronic. Dyspnea -Maintain euvolemia through dialysis, not currently requiring O2. Re-assess EDW Rod Fields MD, SUZANNE
[2022-03-20] MEDS ORDERED: AMLODIPINE 2.5 MG TAB PO SCH (21:00)
== END 2022-03-19 15:46 | disposition home or self-care (01) | DRG 291 ==
LOC: 4TH 21:11
PROVIDERS: ADMIT Internal Medicine; ATTEND Internal Medicine
PROC: 30233N1 Transfusion of Nonautologous Red Blood Cells into Peripheral Vein, Percutaneous Approach (ICD-10-PCS; principal; 2022-03-18)
PROC: 30233P1 Transfusion of Nonautologous Frozen Red Cells into Peripheral Vein, Percutaneous Approach (ICD-10-PCS; 2022-03-18)
PROC: 5A1D70Z Performance of Urinary Filtration, Intermittent, Less than 6 Hours Per Day (ICD-10-PCS; 2022-03-18)
DX: I13.2 Hypertensive heart and chronic kidney disease with heart failure and with stage 5 chronic kidney disease, or end stage renal disease (principal); N18.6 End stage renal disease; E44.0 Moderate protein-calorie malnutrition; D63.1 Anemia in chronic kidney disease; I50.32 Chronic diastolic (congestive) heart failure; E11.22 Type 2 diabetes mellitus with diabetic chronic kidney disease; E11.65 Type 2 diabetes mellitus with hyperglycemia; G89.29 Other chronic pain; M54.9 Dorsalgia, unspecified; M89.8X9 Other specified disorders of bone, unspecified site; M62.84 Sarcopenia; Z88.0 Allergy status to penicillin; Z99.2 Dependence on renal dialysis; Z88.5 Allergy status to narcotic agent; Z88.8 Allergy status to other drugs, medicaments and biological substances; Z68.24 Body mass index [BMI] 24.0-24.9, adult; Z79.84 Long term (current) use of oral hypoglycemic drugs; Z79.899 Other long term (current) drug therapy; Z90.710 Acquired absence of both cervix and uterus
CPT/HCPCS: 36415; 36430; 80048; 80061; 80069; 82607; 82947; 83036; 83735; 83880; 84443; 85014; 85018; 85025; 85610; 85730; 86705; 86850; 86900; 86901; 90935; 94760; J7050; P9016; Q5106

== ENCOUNTER 2022-04-13 16:13 | Emergency (ER) | payer OTHER ==
[2022-04-13 17:13] LABS: Lymphocytes % 21.5 % (15.3-44.8); RBC Red Blood Cell Count 1.47 M/uL (3.86-4.86)
--- NOTE | 2022-04-13 17:13 | RAD REPORT ---
EXAM DESCRIPTION: RAD - Chest Single View - 04/13/2022 4:59 pm CLINICAL HISTORY: CHEST PAIN COMPARISON: Single View dated 08/09/2020; Chest Single View dated 08/01/2020; Chest Single View dated ; Chest Single View dated 10/17/2019 FINDINGS: Lines: None. Lungs: Increased prominence of the pulmonary interstitium. No consolidation or mitchel edema. Pleural: No significant pleural effusions or pneumothorax. Cardiac: Mild cardiomegaly. Mediastinum: Within normal limits. Bones: No acute fractures. Other: None IMPRESSION: Nonspecific prominence of the pulmonary interstitium but no definite acute process. Spec ifically, no consolidation or evidence of mitchel pulmonary edema.
[2022-04-13 17:20] LABS: Hematocrit 15.2 % (36.0-45.0)
[2022-04-13 17:21] LABS: SARS-CoV-2 Antigen Rapid Res Negative (Negative)
[2022-04-13 17:24] LABS: Protime INR 0.97
[2022-04-13] MEDS ORDERED: PANTOPRAZOLE 40 MG INJ ONE ×2 (17:39→17:40)
[2022-04-13] MEDS ORDERED: NA CHLORIDE 0.9% 250 ML ONE (17:41)
[2022-04-13 17:46] LABS: Albumin 3.3 g/dL (3.4-5.0); Bilirubin Direct 0.1 mg/dL (0-0.2); Bilirubin Total 0.3 mg/dL (0.2-1.0); Potassium 3.7 mmol/L (3.5-5.1); Protein, Total 6.6 g/dL (6.4-8.2); Troponin High Sensitivity 28.7 pg/mL (<58.9)
[2022-04-13] MEDS ORDERED: NA CHLORIDE 0.9% 500 ML ONE (20:15)
--- NOTE | 2022-04-13 20:34 | ER ---
Nurse's Notes [facility] Name: Tracy Butt Age: 71 yrs Sex: Female : 1950 Arrival Date: 04/13/2022 Time: 16:14 Bed 13 Private MD: Willie Kee Diagnosis: GI Bleed/ Gastrointestinal hemorrhage, unspecified;Anemia, unspecified;End stage renal disease;Chest pain, unspecified Presentation: 04/13 16:18 Chief complaint: Patient's son or daughter states: chest pain short of breath and weak tw2 since Thursday after dialysis but today it has gotten worse with the chest pain and shortness of breath. Coronavirus screen: fatigue, Client presents with at least one sign or symptom that may indicate coronavirus-19. Standard/surgical mask placed on the client. Provider contacted for isolation considerations. Ebola Screen: Patient denies travel to an Ebola-affected area in the 21 days before illness onset. Initial Sepsis Screen: Does the patient meet any 2 criteria? HR > 90 bpm. No. Patient's initial sepsis screen is negative. Does the patient have a suspected source of infection? No. Patient's initial sepsis screen is negative. Risk Assessment: Do you want to hurt yourself or someone else? Patient reports no desire to harm self or others. Onset of symptoms was April 13, 2022. 16:18 Method Of Arrival: Wheelchair tw2 16:18 Acuity: ANTHONY 3 tw2 Triage Assessment: 16:21 General: Appears uncomfortable, slender, Behavior is calm, cooperative, appropriate for tw2 age. Pain: Complains of pain in chest. Cardiovascular: Reports chest pain, shortness of breath. Historical: - Allergies: 16:20 CHLORAMPHENICOL; tw2 16:20 Latex, Natural Rubber; tw2 16:20 PENICILLINS; tw2 16:20 Zofran or Morphine, last time I was here I had itching to either 1 of them; tw2 - PMHx: 16:20 Anemia; Diabetes - NIDDM; Hypertension; kidney disease; MWF Dialysis; tw2 - Immunization history:: Adult Immunizations. - Social history:: Smoking status: . Screenin:40 Abuse screen: Denies threats or abuse. Denies injuries from another. Nutritional db screening: No deficits noted. Tuberculosis screening: No symptoms or risk factors identified. Fall Risk No fall in past 12 months (0 pts). No secondary diagnosis (0 pts). IV access (20 points). Ambulatory Aid- Crutches/Cane/Walker (15 pts). Gait- Weak (10 pts.). Mental Status- Oriented to own ability (0 pts). Total Moy Fall Scale indicates High Risk Score (45 or more points). Fall prevention measures have been instituted. Side Rails Up X 2 Frequent Obs/Assessments Occuring Family Present and informed to notify staff if the need to leave the bedside. Assessment: 16:50 Reassessment: Patient states SOB feeling weak since Thursday after dialysis. General: db Appears distressed, uncomfortable, Behavior is cooperative, appropriate for age. Pain: Denies pain. Neuro: Level of Consciousness is awake, alert, obeys commands, Oriented to person, place, time, situation, Appropriate for age Speech is normal, Reports. Cardiovascular: No deficits noted. Respiratory: Reports shortness of breath Respiratory effort is labored, Respiratory pattern is regular. 18:00 Reassessment: Patient appears in no apparent distress at this time. Patient and/or db family updated on plan of care and expected duration. Pain level reassessed. Patient is alert, oriented x 3, equal unlabored respirations, skin warm/dry/pink. Patient states feels better Patient states feeling better. Patient states symptoms have improved. Reassessment: Breathing is better. Respiratory: No deficits noted. 21:45 Reassessment: First unit of RBCs given NARN Patient states feeling better. Pain: Denies ke1 pain. 23:27 Reassessment: Attempting to give report since 2300 at [phone] but no answer, ke1 called back transfer center and they will call the destination hospital cryptologic supervisor to call me back. 23:31 Reassessment: No changes from previously documented assessment. Bag 2 RBCs transfused ke1 NARN at this time. 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 ke1 Vital Signs: 16:18 BP 147 / 56; Pulse 94; Resp 17; Temp 98.2(TE); Pulse Ox 100% on R/A; Weight 63.5 kg tw2 (R); Pain 8/10; 16:30 BP 167 / 52; Pulse 75; Resp 28; Pulse Ox 100% ; db 17:30 BP 148 / 50; Pulse 92; Resp 16; Pulse Ox 100% ; db 18:30 BP 136 / 43; Pulse 89; Resp 16; Pulse Ox 100% on 2 lpm NC; db ED Course: 16:14 Patient arrived in ED. am2 16:14 Noe Taylor MD is Private Physician. am2 16:14 Willie Kee DO is Private Physician. am2 16:15 [facility] 16:15 Tian Oakley MD is Attending Physician. [facility] 16:20 Triage completed. tw2 16:21 Arm band placed on. tw2 17:01 XRAY Chest (1 view) In Process Unspecified. EDMS 17:33 Homa Santos, RN is Primary Nurse. db 17:35 Inserted saline lock: 20 gauge in right antecubital area, using aseptic technique. db Blood collected. 18:40 Patient has correct armband on for positive identification. Placed in gown. Bed in low db position. Side rails up X2. Client placed on continuous cardiac and pulse oximetry monitoring. NIBP monitoring applied. Pulse ox on. 19:00 Oxygen administration via nasal cannula \T\ 2L/min. ke1 19:15 Report given to night RN. db 19:[address] [facility], denied due to capacity. 19:29 Initiated transfer to [facility], spoke with Shanice Jimenez. 20:04 Attending Physician role handed off by Tian Oakley MD ms3 20:04 Chad Cuevas DO is Attending Physician. ms3 20:57 Pt accepted for transfer by Dr. Herve Tejeda \T\ 2032. 04/14 00:24 No provider procedures requiring assistance completed. Patient transferred, IV remains ke1 in place. Administered Medications: 04/13 17:50 Drug: ProTONIX (pantoprazole) 40 mg Route: IVP; Site: right antecubital; db 17:50 Drug: ProTONIX (pantoprazole) 8 mg/hr Route: IV; Rate: 25 ml/hr; Site: right db antecubital; Medication: 04/14 00:24 VIS not applicable for this client. ke1 Outcome: 04/13 20:33 ER care complete, transfer ordered by . ms3 04/14 00:25 Transferred to [facility] Note: js ke1 Condition: stable Instructed on the need for transfer. 00:26 Patient left the ED. ke1 Signatures: Dispatcher [employer] EDMS Peña Andrade PA PA jmm Wise, Tara, RN RN tw2 Lizbeth Miller am2 Chad Cuevas DO DO ms3 Margaret Rosa Kouassi, RN RN ke1 Homa Santos RN RN db Corrections: (The following items were deleted from the chart) 04/13 18:42 18:30 BP 136 / 43; Pulse 89bpm; Resp 16bpm; Pulse Ox 100%; db db
--- NOTE | 2022-04-13 20:34 | EDPHYS ---
Physician Documentation [facility] Name: Tracy Butt Age: 71 yrs Sex: Female : 1950 Arrival Date: 04/13/2022 Time: 16:14 Bed 13 Private MD: Willie Kee ED Physician Chad Cuevas HPI: 04/13 16:21 This 71 yrs old Female presents to ER via Wheelchair with complaints of Chest Pain. jmm 16:21 Onset: The symptoms/episode began/occurred gradually. Associated signs and symptoms: m Pertinent negatives: fever. This is a 71-year-old female with history of diabetes mellitus, hypertension end-stage renal disease the presents emerged department with progressively worsening weakness and shortness of breath over the past 3 days. Family states the patient is now having difficulty walking. An MRI of her lumbar spine was ordered 4 days prior for further evaluation.. Historical: - Allergies: 16:20 CHLORAMPHENICOL; tw2 16:20 Latex, Natural Rubber; tw2 16:20 PENICILLINS; tw2 16:20 Zofran or Morphine, last time I was here I had itching to either 1 of them; tw2 - PMHx: 16:20 Anemia; Diabetes - NIDDM; Hypertension; kidney disease; MWF Dialysis; tw2 - Immunization history:: Adult Immunizations. - Social history:: Smoking status: . ROS: 16:21 Constitutional: Positive for malaise. jmm 16:21 Cardiovascular: Positive for chest pain. 16:21 Respiratory: Positive for shortness of breath. 16:21 All other systems are negative. Exam: 16:21 Constitutional: This is a well developed, well nourished patient who is awake, alert, jmm and in no acute distress. Head/Face: atraumatic. Eyes: EOMI, no conjunctival erythema appreciated ENT: Moist Mucus Membranes Neck: Trachea midline, Supple Chest/axilla: Normal chest wall appearance and motion. Cardiovascular: Regular rate and rhythm. No edema appreciated Respiratory: Normal respirations, no respiratory distress appreciated 16:21 Back: Normal ROM Skin: General appearance color normal 16:21 Abdomen/GI: Inspection: abdomen appears normal, Bowel sounds: normal, Palpation: abdomen is soft and non-tender, in all quadrants, Rectal exam: Stool: guaiac positive. 16:21 Skin: Appearance: Color: pale. 16:21 Neuro: Motor: is normal. 16:21 Psych: Behavior/mood is pleasant, cooperative. Vital Signs: 16:18 BP 147 / 56; Pulse 94; Resp 17; Temp 98.2(TE); Pulse Ox 100% on R/A; Weight 63.5 kg tw2 (R); Pain 8/10; 16:30 BP 167 / 52; Pulse 75; Resp 28; Pulse Ox 100% ; db 17:30 BP 148 / 50; Pulse 92; Resp 16; Pulse Ox 100% ; db 18:30 BP 136 / 43; Pulse 89; Resp 16; Pulse Ox 100% on 2 lpm NC; db MDM: 16:35 Patient medically screened. [facility] 19:52 Data reviewed: vital signs, nurses notes. Counseling: I had a detailed discussion with jordin the patient and/or guardian regarding: the historical points, exam findings, and any diagnostic results supporting the discharge/admit diagnosis, lab results, radiology results, the need to transfer to another facility. ED course: There is no GI today. Will will need to transfer patient due to concerns for active GI bleed. Protonix was administered. I discussed the patient with Dr. ANDREZ BEJARANO and recommended transfer to [facility] or [facility].. 20:31 ED course: Discussed case with Dr Tejeda and he accepts patient at [facility]. 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 04/13 16:21 Order name: Basic Metabolic Panel; Complete Time: 17:53 [facility] 04/13 16:21 Order name: CBC with Diff; Complete Time: 17:24 [facility] 04/13 16:21 Order name: LFT's; Complete Time: 17:53 [facility] 04/13 16:21 Order name: Magnesium; Complete Time: 17:53 [facility] 04/13 16:21 Order name: NT PRO-BNP; Complete Time: 17:53 [facility] 04/13 16:21 Order name: PT-INR; Complete Time: 17:27 [facility] 04/13 16:21 Order name: Troponin HS; Complete Time: 17:53 [facility] 04/13 16:27 Order name: SARS RAPID; Complete Time: 17:24 [facility] 04/13 16:45 Order name: Type And Screen [facility] 04/13 18:58 Order name: Packed RBCs (Additional Unit) [facility] 04/13 16:21 Order name: XRAY Chest (1 view); Complete Time: 17:24 [facility] 04/13 16:21 Order name: EKG; Complete Time: 16:22 [facility] 04/13 16:21 Order name: Cardiac monitoring; Complete Time: 17:36 [facility] 04/13 16:21 Order name: EKG - Nurse/Tech; Complete Time: 17:34 [facility] 04/13 16:21 Order name: IV Saline Lock; Complete Time: 17:36 [facility] 04/13 16:21 Order name: Labs collected and sent; Complete Time: 17:36 [facility] 04/13 16:21 Order name: O2 Per Protocol; Complete Time: 17:37 [facility] 04/13 16:21 Order name: O2 Sat Monitoring; Complete Time: 17:37 jm Administered Medications: 17:50 Drug: ProTONIX (pantoprazole) 40 mg Route: IVP; Site: right antecubital; db 17:50 Drug: ProTONIX (pantoprazole) 8 mg/hr Route: IV; Rate: 25 ml/hr; Site: right db antecubital; Disposition: 20:31 Co-signature as Attending Physician, Chad Cuevas DO. ms3 20:32 Chart complete. ms3 Disposition Summary: 04/13/22 20:33 Transfer Ordered Transfer Location: Other Acute Care Facility ms3 Reason: Higher level of care ms3 Condition: Stable ms3 Problem: new ms3 Symptoms: are unchanged ms3 Accepting Physician: Dr tejeda(04/14/22 00:26) zaire Diagnosis - GI Bleed/ Gastrointestinal hemorrhage, unspecified ms3 - Anemia, unspecified ms3 - End stage renal disease ms3 - Chest pain, unspecified ms3 Forms: - Medication Reconciliation Form ms3 - SBAR form ms3 Signatures: Dispatcher [employer] EDMS Peña Andrade PA PA jmm Wise, Tara, RN RN tw2 Chad Cuevas DO DO ms3 Cortes Wilde RN RN ke1 Homa Santos RN RN db Corrections: (The following items were deleted from the chart) 04/14 00:26 10/16 20:33 Dr rica ms3 ke1
[2022-04-14 01:08] VITALS: TEMP 98.2; O2SAT 100
[2022-04-14 01:12] VITALS: BP 136/43
--- NOTE | 2022-04-14 16:09 | EKG ---
Test Date: 2022-04-13 Test Time: 16:31:20 Gas Operations Analyst: CLEMENT MEASUREMENT RESULTS: Intervals: Rate: 103 CO: 146 QRSD: 96 QT: 356 QTc: 466 [place]: P: 61 CO: 146 QRS: 27 T: 24 INTERPRETIVE STATEMENTS: Sinus tachycardia Nonspecific ST and T wave abnormality Abnormal ECG Compared to ECG 07/30/2020 19:22:10 ST (T wave) deviation now present Sinus rhythm no longer present Electronically Signed On 04-14-22 16:07:39 CDT by Wesley Weaver
== END 2022-04-14 00:26 ==
LOC: ER 16:13
DX: R07.9 Chest pain, unspecified (principal); K92.2 Gastrointestinal hemorrhage, unspecified; D64.9 Anemia, unspecified; E11.22 Type 2 diabetes mellitus with diabetic chronic kidney disease; I12.0 Hypertensive chronic kidney disease with stage 5 chronic kidney disease or end stage renal disease; N18.6 End stage renal disease; Z99.2 Dependence on renal dialysis; Z20.822 Contact with and (suspected) exposure to COVID-19
CPT/HCPCS: 93005; 85025; 80048; 36415; 86900; 83735; 86850; 85610; 86901; 80076; 84484; 83880; 71045; 96374; 99285; 87811; C9113 ×2; P9016 ×2; J7050; J7040

== ENCOUNTER 2022-10-23 11:21 | Emergency (ER) | payer OTHER ==
--- NOTE | 2022-10-23 12:05 | RAD REPORT ---
EXAM DESCRIPTION: CT - [id number] - 10/23/2022 11:46 am CLINICAL HISTORY: Trauma, head and neck injury. TRAUMA COMPARISON: Soft Tissue Neck Wo Contr dated 08/08/2020 TECHNIQUE: Axial 5 mm thick images of the head were obtained. Axial 2 mm thick images of the cervical spine were obtained with sagittal and coronal reconstruction images generated and reviewed. All CT scans are performed using dose optimization technique as appropriate and may include automated exposure control or mA/KV adjustment according to patient size. FINDINGS: CT HEAD WITHOUT CONTRAST: No acute hemorrhage, hydrocephalus or extra-axial collection is identified.Mild generalized brain atr ophy is present with mild periventricular and deep white matter chronic microvascular ischemic change s.No areas of brain edema or midline shift. The paranasal sinuses and mastoids are clear.The calvarium is intact. CT CERVICAL SPINE WITHOUT CONTRAST: No fracture or subluxation.Hardware present spanning C5-7.No prevertebral soft tissues swelling is id entified. IMPRESSION: No acute intracranial or cervical spine findings. Postsurgical hardware lower cervical spine.
[2022-10-23 13:11] LABS: Absolute Lymphocytes (CBC) 0.5 K/uL (0.7-4.9); Hematocrit 37.7 % (36.0-45.0); Lymphocytes % 10.6 % (15.3-44.8); MCV 105.8 fL (80-100); MPV 7.5 fL (7.6-11.3); RBC Red Blood Cell Count 3.57 M/uL (3.86-4.86)
[2022-10-23 13:21] LABS: Potassium 3.3 mEq/L (3.5-5.1)
--- NOTE | 2022-10-23 14:01 | EDPHYS ---
Physician Documentation [facility] Name: Tracy Butt Age: 72 yrs Sex: Female : 1950 Arrival Date: 10/23/2022 Time: 11:21 Bed 5 Private MD: ED Physician Chad Cuevas HPI: 10/23 11:39 This 72 yrs old Female presents to ER via Wheelchair with complaints of Fall Injury, ms3 Head Injury-Adult. 11:39 72-year-old female with past medical history of hypertension, end-stage renal disease, ms3 anemia, diabetes presents with her daughter status post fall while bending over at home. Patient endorses moderate posterior head pain. Patient denies alleviating or inciting factors.. Historical: - Allergies: 11:33 CHLORAMPHENICOL; ll1 11:33 Latex, Natural Rubber; ll1 11:33 PENICILLINS; ll1 11:33 Zofran or Morphine, last time I was here I had itching to either 1 of them; ll1 - PMHx: 11:33 Hypertension; kidney disease; Anemia; Diabetes - NIDDM; MWF Dialysis; ll1 - PSHx: 11:33 LUE dialysis access; ll1 - Immunization history:: Client reports receiving the 2nd dose of the Covid vaccine. - Social history:: Smoking status: Patient denies any tobacco usage or history of. ROS: 11:39 Constitutional: Negative for fever, and chills. Neck: Negative for injury, pain, and ms3 swelling, Cardiovascular: Negative for chest pain, and palpitations. Respiratory: Negative for shortness of breath, cough, wheezing, and pleuritic chest pain, Abdomen/GI: Negative for abdominal pain, nausea, vomiting, diarrhea, and constipation, MS/Extremity: Negative for injury and deformity, Skin: Negative for injury, rash, and discoloration. 11:39 All other systems are negative. Exam: 11:39 Constitutional: This is a well developed, well nourished patient who is awake, alert, ms3 and in no acute distress. Neck: Trachea midline, no cervical lymphadenopathy. Supple, full range of motion without nuchal rigidity, or vertebral point tenderness. No Meningismus. Chest/axilla: Normal chest wall appearance and motion. Nontender with no deformity. Cardiovascular: Regular rate and rhythm with a normal S1 and S2. No gallops, murmurs, or rubs. Normal PMI, no JVD. No pulse deficits. Respiratory: Lungs have equal breath sounds bilaterally, clear to auscultation and percussion. No rales, rhonchi or wheezes noted. No increased work of breathing, no retractions or nasal flaring. Abdomen/GI: Soft, non-tender, with normal bowel sounds. No distension or tympany. No guarding or rebound. No evidence of tenderness throughout. Back: No spinal tenderness. No costovertebral tenderness. Full range of motion. Skin: Warm, dry with normal turgor. Normal color with no rashes, no lesions, and no evidence of cellulitis. 11:39 Head/face: Noted is hematoma, that is mild, of the Posterior scalp. Vital Signs: 11:31 BP 173 / 70; Pulse 86; Resp 18; Temp 97.9; Pulse Ox 97% on R/A; ll1 13:37 BP 154 / 65; Pulse 84; Resp 18; Pulse Ox 95% on R/A; ap3 MDM: 11:38 Patient medically screened. ms3 11:39 Differential diagnosis: closed head injury, contusion, fracture, Anemia. ms3 14:01 Data reviewed: vital signs, nurses notes, lab test result(s), EKG, radiologic studies, ms3 and as a result, I will discharge patient. Independent interpretation of the following test(s) in the Emergency Department CT Scan: My interpretation is CT head images reviewed by me do not reveal ICH. Historians other than the Patient: Daughter/Son: Patient's daughter. Counseling: I had a detailed discussion with the patient and/or guardian regarding: the historical points, exam findings, and any diagnostic results supporting the discharge/admit diagnosis, lab results, radiology results, the need for outpatient follow up, to return to the emergency department if symptoms worsen or persist or if there are any questions or concerns that arise at home. ED course: Discussed labs and imaging with patient and her daughter. Patient to follow-up with primary care physician in 1 to 2 days. Patient understands agrees with plan. All questions were answered. Return precautions discussed include worsening symptoms, or any other concerns. 10/23 11:39 Order name: Basic Metabolic Panel; Complete Time: 13:51 ms3 10/23 11:39 Order name: CBC with Diff ms3 10/23 11:39 Order name: Type And Screen; Complete Time: 13:51 ms3 10/23 11:39 Order name: CT Head C Spine; Complete Time: 12:07 ms3 10/23 11:39 Order name: Labs collected and sent; Complete Time: 13:32 ms3 Administered Medications: No medications were administered Disposition Summary: 10/23/22 14:00 Discharge Ordered Location: Home ms3 Condition: Stable ms3 Diagnosis - Fall on same level, unspecified ms3 - Hypokalemia ms3 - End stage renal disease ms3 - Hyponatremia ms3 Followup: ms3 - With: Private Physician - When: 1 - 2 days - Reason: Recheck today's complaints Discharge Instructions: - Discharge Summary Sheet ms3 - Fall Prevention in the Home, Adult ms3 - Dialysis ms3 Forms: - Medication Reconciliation Form ms3 - Thank You Letter ms3 - Antibiotic Education ms3 - Prescription Opioid Use ms3 Signatures: Dispatcher [employer] Alem Russell RN RN ll1 Chad Cuevas DO DO ms3
--- NOTE | 2022-10-23 14:01 | ER ---
Nurse's Notes [facility] Name: Tracy Butt Age: 72 yrs Sex: Female : 1950 Arrival Date: 10/23/2022 Time: 11:21 Bed 5 Private MD: Diagnosis: Fall on same level, unspecified;Hypokalemia;End stage renal disease;Hyponatremia Presentation: 10/23 11:31 Chief complaint: Patient states: Reached over to pick something off the ground 1 hour ll1 [employer]. Fell and hit head. Had neck SX in August., has been wearing c-collar since. No N/V. SOB, weakness, anemia, sleeping a lot for 2 weeks. Coronavirus screen: Vaccine status: Patient reports receiving the 2nd dose of the covid vaccine. Client denies travel out of the [place] in the last 14 days. At this time, the client does not indicate any symptoms associated with coronavirus-19. Ebola Screen: Patient denies travel to an Ebola-affected area in the 21 days before illness onset. Initial Sepsis Screen: Does the patient meet any 2 criteria? No. Patient's initial sepsis screen is negative. Does the patient have a suspected source of infection? No. Patient's initial sepsis screen is negative. Risk Assessment: Do you want to hurt yourself or someone else? Patient reports no desire to harm self or others. Onset of symptoms was October 23, 2022. 11:31 Method Of Arrival: Wheelchair ll1 11:31 Acuity: ANTHONY 3 ll1 Triage Assessment: 11:35 General: Appears uncomfortable, ill, Behavior is calm, cooperative, appropriate for ll1 age. Pain: Complains of pain in head Quality of pain is described as aching. Neuro: Reports headache weakness. Historical: - Allergies: 11:33 CHLORAMPHENICOL; ll1 11:33 Latex, Natural Rubber; ll1 11:33 PENICILLINS; ll1 11:33 Zofran or Morphine, last time I was here I had itching to either 1 of them; ll1 - PMHx: 11:33 Hypertension; kidney disease; Anemia; Diabetes - NIDDM; MWF Dialysis; ll1 - PSHx: 11:33 LUE dialysis access; ll1 - Immunization history:: Client reports receiving the 2nd dose of the Covid vaccine. - Social history:: Smoking status: Patient denies any tobacco usage or history of. Screenin:32 Abuse screen: Denies threats or abuse. Nutritional screening: No deficits noted. mb9 Tuberculosis screening: No symptoms or risk factors identified. 14:14 [facility] ED Fall Risk Assessment (Adult) History of falling in the last 3 months, ap3 including since admission Yes- single mechanical fall (1 pt) Confusion or Disorientation No (0 pts). Vital Signs: 11:31 BP 173 / 70; Pulse 86; Resp 18; Temp 97.9; Pulse Ox 97% on R/A; ll1 13:37 BP 154 / 65; Pulse 84; Resp 18; Pulse Ox 95% on R/A; ap3 ED Course: 11:23 Patient arrived in ED. mr 11:23 Chad Cuevas DO is Attending Physician. ms3 11:33 Triage completed. ll1 11:35 Arm band placed on Patient placed in an exam room, on a stretcher. ll1 11:47 CT Head C Spine In Process Unspecified. EDMS 13:32 Patient has correct armband on for positive identification. Bed in low position. Call mb9 light in reach. Side rails up X2. Pulse ox on. NIBP on. 13:36 Venus Gonzalez, PARVIN is Primary Nurse. mb9 14:12 No provider procedures requiring assistance completed. IV discontinued, intact, ap3 bleeding controlled, No redness/swelling at site. Pressure dressing applied. Administered Medications: No medications were administered Medication: 14:14 VIS not applicable for this client. ap3 Outcome: 14:00 Discharge ordered by MD. ms3 14:12 Discharged to home via wheelchair, with family. ap3 14:12 Condition: good 14:12 Discharge instructions given to patient, family, Instructed on discharge instructions, follow up and referral plans. Demonstrated understanding of instructions, follow-up care. 14:13 Patient left the ED. ss Signatures: Dispatcher [employer] REMI Samuel Venus Lucille Sherman RN RN ss Prokisch, Amanda, RN RN ap3 Alem Munoz RN RN ll1 Chad Cuevas DO DO ms3 Venus Gonzalez RN RN mb9 Corrections: (The following items were deleted from the chart) 11:35 11:31 Chief complaint: Patient states: Reached over to pick something off the ground 1 ll1 hour [employer]. Fell and hit head. Had neck SX in August. No N/V. SOB, weakness, anemia, sleeping a lot for 2 weeks. ll1 13:38 13:36 Pulse 82bpm; Resp 18bpm; Pulse Ox 96%; mb9 ap3
[2022-10-23 14:18] VITALS: TEMP 97.9
[2022-10-23 14:19] VITALS: BP 154/65; O2SAT 95
[2022-10-23 14:53] LABS: Blood Morphology Comment NOTED (NOT SEEN); Macrocytosis 1+; Platelet Estimate ADEQ; White Blood Cell Scan OK (OK)
== END 2022-10-23 14:13 | disposition home or self-care (01) ==
LOC: ER 11:21
DX: S00.03XA Contusion of scalp, initial encounter (principal); E87.6 Hypokalemia; E87.1 Hypo-osmolality and hyponatremia; E11.22 Type 2 diabetes mellitus with diabetic chronic kidney disease; N18.6 End stage renal disease; I10 Essential (primary) hypertension; Z99.2 Dependence on renal dialysis; Z88.0 Allergy status to penicillin; Z88.5 Allergy status to narcotic agent; Z88.8 Allergy status to other drugs, medicaments and biological substances; Z91.040 Latex allergy status; Z91.048 Other nonmedicinal substance allergy status
CPT/HCPCS: 36415; 70450; 72125; 80048; 85025; 86850; 86900; 86901

== ENCOUNTER 2022-10-31 14:57 | Inpatient (IN) | payer OTHER ==
--- NOTE | 2022-10-31 15:35 | RAD REPORT ---
EXAM DESCRIPTION: RAD - Chest Single View - 10/31/2022 3:28 pm CLINICAL HISTORY: DYSPNEA COMPARISON: Chest Single View dated 04/13/2022; Chest Single View dated 08/09/2020; Chest Single View dated 08/01/2020; Chest Single View dated 07/30/2020 FINDINGS: Lines: None. Lungs: Diffuse prominence of the pulmonary interstitium. Partially consolidative left mid lung opacit ies . Pleural: No significant pleural effusions or pneumothorax. Cardiac: Cardiomegaly. Mediastinum: Within normal limits. Bones: No acute fractures. Fusion hardware in the cervical spine. Other: None IMPRESSION: Increasing prominence of the pulmonary interstitium possibly representing edema. Left mi d lung opacities are slightly are more consolidative and could reflect a superimposed pneumonia.
[2022-10-31 15:46] LABS: Arterial Blood Carboxyhemoglob 2.3 % (0-1.5); Blood Gas Oxyhemoglobin 87.6 % (94-97); Blood O2 Saturation 91.1 % (92-98.5)
[2022-10-31 15:47] LABS: Absolute Lymphocytes (CBC) 0.5 K/uL (0.7-4.9); Hematocrit 37.5 % (36.0-45.0); Lymphocytes % 4.3 % (15.3-44.8); MPV 7.5 fL (7.6-11.3); RBC Red Blood Cell Count 3.53 M/uL (3.86-4.86)
[2022-10-31 15:55] LABS: Protime INR 0.97
[2022-10-31 16:16] LABS: Albumin 3.4 g/dL (3.4-5.0); Bilirubin Direct 0.2 mg/dL (0-0.2); Bilirubin Total 0.5 mg/dL (0.2-1.0); Magnesium 1.7 mg/dL (1.6-2.4); Potassium 2.9 mEq/L (3.5-5.1); Protein, Total 7.6 g/dL (6.4-8.2); Troponin High Sensitivity 20.1 pg/mL (<58.9)
[2022-10-31] MEDS ORDERED: Levofloxacin500mg IV 500 MG/100 ML BAG IV ONE (16:26)
[2022-10-31] MEDS ORDERED: ENOXAPARIN 80 MG/0.8 ML SQ ONE (16:26)
[2022-10-31] MEDS ORDERED: POTASSIUM 25 MEQ EFFERV TAB ONE (16:48)
--- NOTE | 2022-10-31 16:48 | EDPHYS ---
Physician Documentation [facility] Name: Tracy Butt Age: 72 yrs Sex: Female : 1950 Arrival Date: 10/31/2022 Time: 14:57 Bed 3 Private MD: ED Physician Tian Oakley HPI: 10/31 15:18 This 72 yrs old Female presents to ER via Unassigned with complaints of amy General Weakness. 15:18 The patient has shortness of breath at rest. Onset: The symptoms/episode began/occurred amy 2 day(s) ago. Duration: The symptoms are continuous, and are unchanged since they started. The patient's shortness of breath is aggravated by coughing, is alleviated by nothing. hx recent neck surgery. Associated signs and symptoms: Pertinent positives: non-productive cough. Severity of symptoms: At their worst the symptoms were mild moderate in the emergency department the symptoms are unchanged. The patient has experienced similar episodes in the past, several times. Historical: - Allergies: 15:19 CHLORAMPHENICOL; vg1 15:19 Latex, Natural Rubber; vg1 15:19 PENICILLINS; vg1 15:19 Zofran or Morphine, last time I was here I had itching to either 1 of them; vg1 - PMHx: 15:19 Anemia; Diabetes - NIDDM; Hypertension; kidney disease; MWF Dialysis; vg1 - PSHx: 15:19 LUE dialysis access; vg1 - Social history:: Smoking status: Patient denies any tobacco usage or history of. ROS: 15:20 Constitutional: Negative for fever, chills, and weight loss, Eyes: Negative for injury, amy pain, redness, and discharge, ENT: Negative for injury, pain, and discharge, Neck: Negative for injury, pain, and swelling, Cardiovascular: Negative for chest pain, palpitations, and edema, Abdomen/GI: Negative for abdominal pain, nausea, vomiting, diarrhea, and constipation, Back: Negative for injury and pain, : Negative for injury, bleeding, discharge, and swelling, MS/Extremity: Negative for injury and deformity, Skin: Negative for injury, rash, and discoloration, Psych: Negative for depression, anxiety, suicide ideation, homicidal ideation, and hallucinations, Allergy/Immunology: Negative for hives, rash, and allergies, Endocrine: Negative for neck swelling, polydipsia, polyuria, polyphagia, and marked weight changes. 15:20 Respiratory: Positive for cough, shortness of breath. 15:20 Neuro: Positive for weakness. Exam: 15:20 Constitutional: This is a well developed, well nourished patient who is awake, alert, amy and in no acute distress. Head/Face: Normocephalic, atraumatic. Eyes: Pupils equal round and reactive to light, extra-ocular motions intact. Lids and lashes normal. Conjunctiva and sclera are non-icteric and not injected. Cornea within normal limits. Periorbital areas with no swelling, redness, or edema. ENT: Nares patent. No nasal discharge, no septal abnormalities noted. Tympanic membranes are normal and external auditory canals are clear. Oropharynx with no redness, swelling, or masses, exudates, or evidence of obstruction, uvula midline. Mucous membranes moist. Neck: Trachea midline, no thyromegaly or masses palpated, and no cervical lymphadenopathy. Supple, full range of motion without nuchal rigidity, or vertebral point tenderness. No Meningismus. Chest/axilla: Normal chest wall appearance and motion. Nontender with no deformity. No lesions are appreciated. Cardiovascular: Regular rate and rhythm with a normal S1 and S2. No gallops, murmurs, or rubs. Normal PMI, no JVD. No pulse deficits. Respiratory: Lungs have equal breath sounds bilaterally, clear to auscultation and percussion. No rales, rhonchi or wheezes noted. No increased work of breathing, no retractions or nasal flaring. Abdomen/GI: Soft, non-tender, with normal bowel sounds. No distension or tympany. No guarding or rebound. No evidence of tenderness throughout. Back: No spinal tenderness. No costovertebral tenderness. Full range of motion. Female : Normal external genitalia. Skin: Warm, dry with normal turgor. Normal color with no rashes, no lesions, and no evidence of cellulitis. MS/ Extremity: Pulses equal, no cyanosis. Neurovascular intact. Full, normal range of motion. Neuro: Awake and alert, GCS 15, oriented to person, place, time, and situation. Cranial nerves II-XII grossly intact. Motor strength 5/5 in all extremities. Sensory grossly intact. Cerebellar exam normal. Normal gait. Psych: Awake, alert, with orientation to person, place and time. Behavior, mood, and affect are within normal limits. 15:20 Musculoskeletal/extremity: ROM: full active range of motion, full passive range of motion, Circulation is intact in all extremities. Sensation intact. Compartment Syndrome exam of affected extremity: is normal. DVT Exam: no pain, no swelling, no tenderness, negative Homans' sign noted on exam, no appreciated bluish discoloration, no erythema, no increased warmth. 15:20 Neuro: Cranial nerves: is grossly normal based on the patient's age, no acute changes, Motor: is normal, is grossly normal based on the patient's age, no acute changes, moves all fours, strength is 5/5 in all extremities, Sensation: is normal, Gait: not applicable Babinski testing is normal, seizure activity, is not displayed by the patient. 17:39 ECG was reviewed by the Attending Physician. amy Vital Signs: 15:16 BP 171 / 63; Pulse 92; Resp 20; Temp 98.9(O); Pulse Ox 94% on R/A; vg1 16:39 Weight 70.31 kg; Height 5 ft. 4 in. ; hb 17:45 BP 162 / 59; Pulse 88; Resp 18; Pulse Ox 89% on R/A; hb 17:51 Pulse Ox 95% on 2 lpm NC; hb 18:28 BP 153 / 53; Pulse 91; Resp 18; Pulse Ox 95% on 2 lpm NC; hb 19:31 BP 151 / 52; Pulse 94; Pulse Ox 97% on 2 lpm NC; vc1 16:39 Body Mass Index 26.61 (70.31 kg, 162.56 cm) hb 17:45 PLACED ON 2LNC hb NIH Stroke Scale Scores: 15:20 NIHSS Score: 0 amy MDM: 15:02 Patient medically screened. amy 15:22 Differential diagnosis: Anemia Anxiety Reaction CHF exacerbation, pneumonia, pulmonary amy edema, Pulmonary Embolism reactive airway disease, Sepsis Unstable Angina. Antibiotic administration: Not indicated. Antibiotic administration: Not indicated. Differential Diagnosis altered mental status, sepsis. Differential Diagnosis: cardiac arrhythmia, emotional response, GI bleed, sepsis, vasovagal episode. Immunization status: Pneumococcal vaccine: within last 5 years. Influenza vaccine: within last 5 years. Data reviewed: vital signs, nurses notes, lab test result(s), EKG, radiologic studies, CT scan, plain films. Data reviewed: radiologic studies, doppler. Consideration of Admission/Observation Escalation of care including admission/observation considered. I considered the following discharge prescriptions or medication management in the emergency department Medications were administered in the Emergency Department. See AUG. 10/31 15:13 Order name: Basic Metabolic Panel; Complete Time: 16:29 [facility] 10/31 15:13 Order name: CBC with Diff; Complete Time: 17:47 [facility] 10/31 15:13 Order name: LFT's; Complete Time: 16:29 [facility] 10/31 15:13 Order name: Magnesium; Complete Time: 16:29 [facility] 10/31 15:13 Order name: NT PRO-BNP; Complete Time: 16:29 [facility] 10/31 15:13 Order name: PT-INR; Complete Time: 16:29 [facility] 10/31 15:13 Order name: Troponin HS; Complete Time: 16:29 [facility] 10/31 15:13 Order name: Urinalysis w/ reflexes [facility] 10/31 15:13 Order name: Lipase; Complete Time: 16:29 [facility] 10/31 15:13 Order name: ABG: ra; Complete Time: 16:29 [facility] 10/31 15:56 Order name: Blood Culture Adult (2) [facility] 10/31 15:56 Order name: Lactate w/ 2H reflex if indic. [facility] 10/31 17:46 Order name: Manual Differential; Complete Time: 17:47 [facility] 10/31 15:13 Order name: XRAY Chest (1 view); Complete Time: 15:55 [facility] 10/31 15:13 Order name: CT Traumagram (Head C Spine CAP wo con); Complete Time: 17:47 [facility] 10/31 15:17 Order name: US Extremity Venous W Compression Eduin; Complete Time: 17:47 [facility] 10/31 15:13 Order name: EKG; Complete Time: 15:14 [facility] 10/31 15:13 Order name: Cardiac monitoring; Complete Time: 17:54 [facility] 10/31 15:13 Order name: EKG - Nurse/Tech; Complete Time: 17:54 [facility] 10/31 15:13 Order name: IV Saline Lock; Complete Time: 15:39 [facility] 10/31 15:13 Order name: Labs collected and sent; Complete Time: 15:39 [facility] 10/31 15:13 Order name: O2 Per Protocol; Complete Time: 15:39 [facility] 10/31 15:13 Order name: O2 Sat Monitoring; Complete Time: 15:39 amy EC:39 Rate is 101 beats/min. Rhythm is regular. QRS Burton is Normal. AL interval is normal. amy QRS interval is normal. QT interval is normal. No Q waves. T waves are Normal. No ST changes noted. Clinical impression: Sinus tachycardia. Interpreted by me. Reviewed by me. Administered Medications: 16:37 Not Given (Duplicate Order): NS 0.9% IV 1000 ml IV at 75 ml/hr continuous amy 17:50 Drug: Lovenox Sub-Q 40 mg Route: Sub-Q; Site: abdomen; hb 18:28 Follow up: Response: No adverse reaction hb 17:50 Drug: Potassium PO Effervescent Tablet 25 mEq Route: PO; hb 18:27 Follow up: Response: No adverse reaction hb 17:51 Drug: fentaNYL (PF) IVP 25 mcg Route: IVP; Site: right antecubital; hb 18:27 Follow up: Response: No adverse reaction hb 18:27 CANCELLED (CANCEL PER DR Royal): levofloxacin IVPB 500 mg 100 ml IVPB once over 60 minshb Disposition Summary: 10/31/22 16:48 Hospitalization Ordered Hospitalization Status: Inpatient Admission amy Provider: Charli Jimenez cha Location: Telemetry/MedSurg (Inpatient) amy Condition: Fair amy Problem: new amy Symptoms: have worsened amy Bed/Room Type: Standard amy Room Assignment: 426(10/31/22 17:55) dw Diagnosis - Dyspnea amy - Hypoxemia amy - End stage renal disease - on HD M, W, FRI amy - Hypokalemia amy - Pneumonia due to other specified bacteria - LEFT LOWER LOBE amy - Weakness amy Forms: - Medication Reconciliation Form amy - SBAR form amy NIH Stroke Scale - NIH Stroke Score Date: 10/31/2022 Time: 15:20 Total Score = 0 10. Dysarthria (speech clarity - read or repeat words) - 0(Normal) 11. Extinction and Inattention (visual/tactile/auditory/spatial/personal) - 0(No abnormality) 1a. Level of Consciousness (LOC) - 0(Alert) 1b. Level of Consciousness (LOC) (Month \T\ Age) - 0(Both) 1c. LOC Commands (Open \T\ Closes Eyes/Plasterer Apprentice) - 0(Both) 2. Best Gaze (Lateral Gaze Paresis) - 0(Normal) 3. Visual Field Loss - 0(No visual loss) 4. Facial Palsy - 0(Normal) 5a. Left Arm: Motor (10-second hold) - 0(No drift) 5b. Right Arm: Motor (10-second hold) - 0(No drift) 6a. Left Leg: Motor (5-second hold - always test supine) - 0(No drift) 6b. Right Leg: Motor (5-second hold - always test supine) - 0(No drift) 7. Limb Ataxia (finger/nose \T\ heel/ny - test with eyes open) - 0(Absent) 8. Sensory Loss (pinprick arms/legs/face) - 0(Normal) 9. Best Language: Aphasia (description/naming/reading) - 0(No aphasia) Initials: amy Signatures: Dispatcher [employer] EDTX Sabina Hernandez RN RN dw Anderson, Corey, MD MD cha Baxter, Heather, RN RN hb Garcia, Victoria, RN RN vg1 Corrections: (The following items were deleted from the chart) 17:55 16:48 [facility] dw 18:27 15:56 levofloxacin IVPB 500 mg 100 ml IVPB once over 60 mins ordered. amy hb 18:27 18:27 levofloxacin IVPB 500 mg 100 ml IVPB once over 60 mins ordered. hb hb
--- NOTE | 2022-10-31 16:48 | ER ---
Nurse's Notes [facility] Name: Tracy Butt Age: 72 yrs Sex: Female : 1950 Arrival Date: 10/31/2022 Time: 14:57 Bed 3 Private MD: Diagnosis: Dyspnea;Hypoxemia;End stage renal disease-on HD M, W, THU;Hypokalemia;Pneumonia due to other specified bacteria-LEFT LOWER LOBE;Weakness Presentation: 10/31 15:16 Chief complaint: Patient's son or daughter states: had sx on C5-C7 and had C6 replaced, vg1 September 09, pt wears a c collar daily; pt has been feeling weak since this morning, stated pt "almost fell when getting out of the shower this morning" Pt needed assistance getting out of the vehicle. Pt stated difficulty breathing/SOB. Had dialysis this morning and 3.74 was removed. BGL at home was 238. Initial Sepsis Screen: Does the patient meet any 2 criteria? HR > 90 bpm. Does the patient have a suspected source of infection? No. Patient's initial sepsis screen is negative. Risk Assessment: Do you want to hurt yourself or someone else? Patient reports no desire to harm self or others. Onset of symptoms was October 31, 2022. 15:16 Method Of Arrival: Wheelchair vg1 15:16 Acuity: ANTHONY 2 vg1 17:52 Coronavirus screen: At this time, the client does not indicate any symptoms associated hb with coronavirus-19. Ebola Screen: No symptoms or risks identified at this time. Triage Assessment: 15:22 General: Appears uncomfortable, ill, obese, Behavior is cooperative. Pain: Complains of vg1 pain in back. Neuro: Level of Consciousness is awake, alert, obeys commands, Oriented to person, place, time, situation. Cardiovascular: Dialysis shunt: in the left bicep, with palpable thrill, with auscultated bruit, with no erythema, with no edema, no bleeding noted. Respiratory: Reports shortness of breath at rest on exertion. Historical: - Allergies: 15:19 CHLORAMPHENICOL; vg1 15:19 Latex, Natural Rubber; vg1 15:19 PENICILLINS; vg1 15:19 Zofran or Morphine, last time I was here I had itching to either 1 of them; vg1 - PMHx: 15:19 Anemia; Diabetes - NIDDM; Hypertension; kidney disease; MWF Dialysis; vg1 - PSHx: 15:19 LUE dialysis access; vg1 - Social history:: Smoking status: Patient denies any tobacco usage or history of. Screenin:40 [facility] ED Fall Risk Assessment (Adult) Score/Fall Risk Level 3 or more points = High hb Risk Oriented to surroundings, Maintained a safe environment, Educated pt \\T\\ family on fall prevention, incl call for assistance when getting out of bed. Abuse screen: Denies threats or abuse. Denies injuries from another. Nutritional screening: No deficits noted. Tuberculosis screening: No symptoms or risk factors identified. Assessment: 15:39 General: Appears in no apparent distress. Behavior is calm, cooperative. Pain: Pain hb currently is 4 out of 10 on a pain scale. Neuro: Level of Consciousness is awake, alert, obeys commands, Oriented to person, place, time, situation. Cardiovascular: Patient's skin is warm and dry. Rhythm is regular. Respiratory: Respiratory effort is even, unlabored, pursed lip, Respiratory pattern is regular, symmetrical. GI: No signs and/or symptoms were reported involving the gastrointestinal system. : No signs and/or symptoms were reported regarding the genitourinary system. EENT: No signs and/or symptoms were reported regarding the EENT system. Derm: Skin is pink, warm \\T\\ dry. Musculoskeletal: No signs and/or symptoms reported regarding the musculoskeletal system. 17:00 Reassessment: No changes from previously documented assessment. Patient and/or family hb updated on plan of care and expected duration. Pain level reassessed. 18:28 Reassessment: Patient appears in no apparent distress at this time. No changes from hb previously documented assessment. Patient and/or family updated on plan of care and expected duration. Pain level reassessed. 19:31 Reassessment: No changes from previously documented assessment. Patient and/or family vc1 updated on plan of care and expected duration. Pain level reassessed. Vital Signs: 15:16 BP 171 / 63; Pulse 92; Resp 20; Temp 98.9(O); Pulse Ox 94% on R/A; vg1 16:39 Weight 70.31 kg; Height 5 ft. 4 in. ; hb 17:45 BP 162 / 59; Pulse 88; Resp 18; Pulse Ox 89% on R/A; hb 17:51 Pulse Ox 95% on 2 lpm NC; hb 18:28 BP 153 / 53; Pulse 91; Resp 18; Pulse Ox 95% on 2 lpm NC; hb 19:31 BP 151 / 52; Pulse 94; Pulse Ox 97% on 2 lpm NC; vc1 16:39 Body Mass Index 26.61 (70.31 kg, 162.56 cm) hb 17:45 PLACED ON 2LNC hb NIH Stroke Scale Scores: 15:20 NIHSS Score: 0 amy ED Course: 14:59 Patient arrived in ED. ts1 15:02 Tian Oakley MD is Attending Physician. amy 15:05 Josiah Felix, PARVIN is Primary Nurse. bp 15:19 Triage completed. vg1 15:22 Arm band placed on. vg1 15:30 XRAY Chest (1 view) In Process Unspecified. EDMS 15:39 Inserted saline lock: 22 gauge in right antecubital area, using aseptic technique. hb Blood collected. 15:40 Patient has correct armband on for positive identification. hb 16:38 Charli Jimenez MD is Hospitalizing Provider. amy 16:47 US Extremity Venous W Compression Eduin In Process Unspecified. EDMS 16:54 CT Traumagram (Head C Spine CAP wo con) In Process Unspecified. EDMS 20:11 No provider procedures requiring assistance completed. Patient admitted, IV remains in bp place. Administered Medications: 16:37 Not Given (Duplicate Order): NS 0.9% IV 1000 ml IV at 75 ml/hr continuous amy 17:50 Drug: Lovenox Sub-Q 40 mg Route: Sub-Q; Site: abdomen; hb 18:28 Follow up: Response: No adverse reaction hb 17:50 Drug: Potassium PO Effervescent Tablet 25 mEq Route: PO; hb 18:27 Follow up: Response: No adverse reaction hb 17:51 Drug: fentaNYL (PF) IVP 25 mcg Route: IVP; Site: right antecubital; hb 18:27 Follow up: Response: No adverse reaction hb 18:27 CANCELLED (CANCEL PER DR Royal): levofloxacin IVPB 500 mg 100 ml IVPB once over 60 minshb Medication: 15:40 VIS not applicable for this client. hb Outcome: 16:48 Decision to Hospitalize by Provider. amy 20:11 Admitted to Tele accompanied by tech, via stretcher, room 426, with oxygen, with chart, bp Report called to PARVIN Guthrie 20:11 Condition: stable 20:11 Instructed on the need for admit, Demonstrated understanding of instructions. 20:11 Patient left the ED. bp NIH Stroke Scale - NIH Stroke Score Date: 10/31/2022 Time: 15:20 Total Score = 0 10. Dysarthria (speech clarity - read or repeat words) - 0(Normal) 11. Extinction and Inattention (visual/tactile/auditory/spatial/personal) - 0(No abnormality) 1a. Level of Consciousness (LOC) - 0(Alert) 1b. Level of Consciousness (LOC) (Month \\T\\ Age) - 0(Both) 1c. LOC Commands (Open \\T\\ Closes Eyes/Smeller) - 0(Both) 2. Best Gaze (Lateral Gaze Paresis) - 0(Normal) 3. Visual Field Loss - 0(No visual loss) 4. Facial Palsy - 0(Normal) 5a. Left Arm: Motor (10-second hold) - 0(No drift) 5b. Right Arm: Motor (10-second hold) - 0(No drift) 6a. Left Leg: Motor (5-second hold - always test supine) - 0(No drift) 6b. Right Leg: Motor (5-second hold - always test supine) - 0(No drift) 7. Limb Ataxia (finger/nose \\T\\ heel/ny - test with eyes open) - 0(Absent) 8. Sensory Loss (pinprick arms/legs/face) - 0(Normal) 9. Best Language: Aphasia (description/naming/reading) - 0(No aphasia) Initials: amy Signatures: Dispatcher [employer] Tian Garcia MD MD cha Baxter, Heather, RN RN hb Peltier, Brian, RN RN Flor Lozoya, PARVIN RN vg1 Jolie Spear RN RN vc1 Vi Bhakta PAS PAS ts1
[2022-10-31] MEDS ORDERED: ENOXAPARIN 40 MG/0.4 ML SQ ONE (16:49)
--- NOTE | 2022-10-31 17:01 | P.HP ---
Certification for Inpatient Patient admitted to: Inpatient With expected LOS: >2 Midnights Patient will require the following post-hospital care: None Practitioner: I am a practitioner with admitting privileges, knowledge of patient current condition, hospital course, and medical plan of care. Services: Services provided to patient in accordance with Admission requirements found in Title 42 Section 412.3 of the Code of Federal Regulations Patient History Date of Service: 10/31/22 Reason for admission: Shortness of Breath, Weakness History of Present Illness: Service was provided via video visit/Tele-Medicine. For that reason, no physical examination was performed. Ms. Tracy Butt is a very pleasant 72 year old female who has a past medical history of end-stage renal disease on [facility] iHD, type II diabetes mellitus, and hypertension who presents to the [facility] Emergency Department with generalized weakness and shortness of breath. She reports that, on 09/10/2022, she had a C5-C7 fusion. Since the surgery, she has been experiencing generalized weakness and recurrent falls. On 10/23/2022, she had a fall, presented to the Emergency Department, and was discharged home. This morning, she had another fall, and describes that her "legs keep giving out." She states that the weakness seems to be worse on the right compared to the left. She denies any urinary/bowel incontinence or sensory deficits. She reports associated shortness of breath, nausea, and neck pain. On review of systems, she denies any fevers, chills, headaches, dizziness, syncope, weakness, chest pain, palpitations, wheezing, cough, abdominal pain, vomiting, diarrhea, constipation, hematochezia, melena, dysuria, hematuria, myalgia, or any other symptoms. Upon presentation, her vital signs were stable. Her laboratory studies were notable for a potassium of 2.9, a creatinine of 3.28, and an NT-Pro BNP of 9079. Blood cultures x 2 were obtained. Troponin x 1 was 20.1. EKG was without STEMI criteria. Her chest x-ray revealed, "increasing prominence of the pulmonary interstitium possibly representing edema. Left mid lung opacities are slightly are more consolidative and could reflect a superimposed pneumonia.." CT head/cervical spine/chest/abdomen/pelvis revealed, "1. Multifocal airspace disease including consolidation in the left upper and left lower lobe consistent with pneumonia. 2. No acute intracranial abnormality. 3. No acute fracture or traumatic malalignment cervical spine. 4. No acute intra-abdominal abnormality." Bilateral lower extremity Doppler revealed, "no DVT in either lower extremity." She was admitted to the General Internal Medicine Service under Dr. Buckley for further evaluation. Allergies chloramphenicol Allergy (Verified 09/13/20 12:02) Anaphylaxis morphine Allergy (Verified 09/13/20 12:02) Itching/Hives/Rash ondansetron [From Zofran] Allergy (Verified 09/13/20 12:02) Itching/Hives/Rash Penicillins Allergy (Verified 09/13/20 12:02) Anaphylaxis Home medications list reviewed: Yes Home Medications: Atorvastatin Calcium 20 mg PO BEDTIME 07/31/20 Carvedilol [Coreg] 25 mg PO BIDWM 07/31/20 Cholecalciferol (Vitamin D3) [Vitamin D3] 5,000 unit PO DAILY 07/31/20 Glimepiride 4 mg PO DAILY 07/31/20 Ketorolac Opth [Acular 0.5% Opth Drops*] 1 drop OPTH BID 07/31/20 Epoetin [Procrit*] 10,000 units SQ M,W,F PRN 09/13/20 Amlodipine Besylate 10 mg PO DAILY 03/18/22 Hydralazine [Apresoline*] 25 mg PO SEECOM 03/18/22 Hydrocodone Bit/Acetaminophen [Hydrocodon-Acetaminophen 5-325] 1 tab PO BID PRN MDD 2 03/18/22 Isosorbide Mononitrate [Isosorbide Mononitrate ER] 30 mg PO DAILY 03/18/22 Ascorbic Acid [C-1000] 1,000 mg PO DAILY 09/11/22 Aspirin [Aspirin EC 81 MG] 81 mg PO SEECOM 09/11/22 Brimonidine Tartrate [Alphagan P] 1 gtt OP BID 09/11/22 Ferric Citrate [Auryxia] 2 tab PO TIDWM 09/11/22 Folic Acid/Vit B Complex and C [Dialyvite 800 Chewable Wafer] 800 mg PO DAILY 09/11/22 Hydralazine HCl [Apresoline] 50 mg PO SEECOM 09/11/22 Montelukast [Singulair*] 10 mg PO DAILY 09/11/22 Pioglitazone [Actos*] 15 mg PO BID 09/11/22 Promethazine Tab [Phenergan*] 25 mg PO Q6HP PRN 09/11/22 Epoetin [Retacrit] 10,000 unit SQ M,W,F vial 09/23/22 Heparin [Heparin 1,000 units/mL *] 2,000 unit IV EVERY HD PRN vial 09/23/22 Famotidine [Pepcid] 20 mg PO DAILY 10/31/22 Pantoprazole [Protonix Tab] 40 mg PO DAILY 10/31/22 - Past Medical/Surgical History Diabetic: Yes -: ESRD [place] HD MWF (Dr. Kee) -: NIDDM -: Hypertension -: Anemia chronic disease -: CHRONIC BACK PAIN -: GLUACOMA -: RETINIOPATHY -: SUPERFICIAL BASIL CELL CARCINOMA -: Asthma -: Hysterectomy -: Left total knee -: back surgery -: CATARACT HAMMAD EYES -: LUE HD placed -: 09/09/22 Cervical Myelopathy Psychosocial/ Personal History: Patient lives with her daughter and is retired - Family History Mother -: Heart disease, Diabetes, Stroke Father -: Cancer Sister -: Cancer - Social History Smoking Status: Never smoker Alcohol use: No CD- Drugs: No Caffeine use: Yes Review of Systems General: Weakness (generalized) Eyes: Unremarkable ENT: Other (neck pain) Respiratory: Shortness of Breath Cardiovascular: Unremarkable Gastrointestinal: Nausea Genitourinary: Unremarkable Musculoskeletal: Unremarkable Integumentary: Unremarkable Neurological: Unremarkable Lymphatics: Unremarkable Physical Examination - Vital Signs Temperature: 98.9 F Blood Pressure: 171/63 Pulse: 92 Respirations: 20 Pulse Ox (%): 94 (room air) - Physical Exam General: Alert, Oriented x3, Mild distress Respiratory: Other (Mild tachypnea, no signicant respiratory distress noted) Cardiovascular: Regular rate/rhythm (on telemetry), Edema (1+ BLE edema) - Studies Laboratory Data (last 24 hrs) 10/31/22 15:36: PT 10.7, INR 0.97 10/31/22 15:36: WBC 10.80, Hgb 12.5, Hct 37.5, Plt Count 158 10/31/22 15:36: Sodium 132 L, Potassium 2.9 L, BUN 16, Creatinine 3.28 H, Glucose 219 H, Magnesium 1.7, Total Bilirubin 0.5, AST 13 L, ALT 19, Alkaline Phosphatase 154 H, Lipase 36 Assessment and Plan - Plan # Acute Hypoxemic Respiratory Failure - likely secondary to Community-Acquired Pneumonia and Pulmonary Edema - Evaluation thus far: - Procalcitonin = pending - ABG = pH 7.49, PCO2 39.7, PO2 56.4 - Chest x-ray = "increasing prominence of the pulmonary interstitium possibly representing edema. Left mid lung opacities are slightly are more consolidative and could reflect a superimposed pneumonia." - CT head/cervical spine/chest/abdomen/pelvis revealed, "1. Multifocal airspace disease including consolidation in the left upper and left lower lobe consistent with pneumonia. 2. No acute intracranial abnormality. 3. No acute fracture or traumatic malalignment cervical spine. 4. No acute intra-abdominal abnormality." - Management plan: - Pulmonology consulted - recommendations appreciated - Consulted Respiratory Therapy - Supplemental oxygen to maintain SpO2 > 92% - If respiratory status worsens, consider starting BiPAP - Continue antibiotics and volume removal as described below - Encouraged incentive spirometry # Suspect Sepsis likely secondary to Left-Sided Community-Acquired Pneumonia # History of Penicillin Allergy (Throat Swelling +/- Anaphylaxis) She met 2/4 SIRS criteria with tachycardia and borderline tachypnea. Suspect the infectious source to be pneumonia. - Sepsis bundle set ordered - Initial lactate = pending - Blood cultures drawn before antibiotics were given - Broad spectrum antibiotics: given anaphylactic allergy to penicillin and prolonged QTc interval (484 msec) - consulted Dr. Marc (Infectious Diseases), who recommended Vancomycin + Aztreonam - In regards to fluid resuscitation: - 30 mL/kg was not given due to SBP > 90, MAP >65, and concern for volume overload given hemodialysis dependence # Hypertensive Urgency with likely Pulmonary Edema in End-Stage Renal Disease on MWF iHD - Blood pressure on presentation was 171/63 - Last dialyzed today - Consulted Nephrology and spoke with Dr. Kee - recommendations appreciated - Volume removal via hemodialysis - Continue home amlodipine, carvedilol, hydralazine, isosorbide mononitrate # Hypokalemia in ESRD - Consulted Nephrology and spoke with Dr. Kee - recommendations appreciated - Advised not to replace and to recheck potassium level this evening to see if it equilibrates post-dialysis # Type II Diabetes Mellitus complicated by Diabetic Retinopathy - Correction scale insulin - Continue home ophthalmic drops - Hold home glimepiride, pioglitazone while hospitalized - Advised to consider discussing discontinuing pioglitazone with her PCP as this has been associated with CHF/edema # Deconditioning complicated by Recurrent Falls - Consulted PT # Chronic Back Pain s/p C5-C7 Fusion (09/10/2022) - No evidence of injury per CT report - Continue home hydrocodone-acetaminophen - Consulted PT # 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 Adri Rosas), who both confirm that, should she require cardiopulmonary resuscitation or endotracheal intubation, she would not want this done. She confirmed that she is a DNAR code status. Dr. Buckley updated on plan of care. Charli Jimenez M.D. Discharge Plan: Home Plan to discharge in: Greater than 2 days - Advance Directives Does patient have a Living Will: No Does patient have a Durable POA for Healthcare: Yes - Code Status/Comfort Care Code Status Assessed: Yes Code Status: Do Not Attempt Resuscitat
--- NOTE | 2022-10-31 17:17 | RAD REPORT ---
EXAM DESCRIPTION: US - Extrem Venous W Compress Eduin - 10/31/2022 4:45 pm CLINICAL HISTORY: PAIN COMPARISON: No comparisons TECHNIQUE: Real-time sonographic evaluation of the lower extremity deep venous systems was performed using color Doppler, grayscale, and compression. FINDINGS: Bilateral lower extremities. Normal compressibility, flow augmentation, phasic flow and spontaneous flow is identified in both the left and right lower extremity deep venous systems. No intraluminal filling defects seen. IMPRESSION: No DVT in either lower extremity.
--- NOTE | 2022-10-31 17:17 | RAD REPORT ---
EXAM DESCRIPTION: CT - Head C Spine Cap Wo Con - 10/31/2022 4:52 pm CLINICAL HISTORY: Trauma, head and neck injury. Chest, abdomen and pelvis pain. TRAUMA COMPARISON: Chest Single View dated 10/31/2022 TECHNIQUE: CT head without contrast. CT cervical spine without contrast with coronal and sagittal reformatted images. CT chest, abdomen and pelvis with coronal and sagittal reformatted images of the spine. All CT scans are performed using dose optimization technique as appropriate and may include automated exposure control or mA/KV adjustment according to patient size. FINDINGS: CT HEAD WITHOUT CONTRAST: No intracranial hemorrhage, hydrocephalus or extra-axial fluid collection. No acute large vascular te rritory infarct. Chronic small vessel ischemic changes. Cerebral atrophy. The paranasal sinuses and mastoids are clear. The calvarium is intact. CT CERVICAL SPINE WITHOUT CONTRAST: No fracture or subluxation. The prevertebral soft tissues are normal in thickness..Status post C5-C7 ACDF with changes of corpect vivien. CT CHEST, ABDOMEN, PELVIS: Thorax: Chest Wall: No abnormal mass Lungs: New consolidation present in the left mid lung and left lower lobe. Other scattered areas of n odularity noted. Pleura: No effusions or pneumothorax. Rhianna/Mediastinum: No lymphadenopathy. Aorta/Pulmonary Arteries: Unremarkable Heart: Multi-vessel coronary artery disease. Abdomen/Pelvis: Liver: No acute abnormality or suspicious lesions. Biliary: Cholelithiasis. No CT evidence of acute cholecystitis. Stomach: No significant focal abnormality. Duodenum: No significant focal abnormality. Pancreas: No significant abnormality. Spleen: No significant abnormality. Adrenal: No suspicious lesions. Kidney/ureter: No hydronephrosis. No renal calculi. Retroperitoneum: No retroperitoneal adenopathy. Vascular: No aneurysm. Bowel: Moderate colonic stool.. Peritoneum: No ascites or free air. Bladder: Grossly unremarkable. Reproductive: Hysterectomy Bones: No acute fracture. Other: n/a No fracture or subluxation. L4 through S1 fusion. IMPRESSION: 1. Multifocal airspace disease including consolidation in the left upper and left lower lobe consistent with pneumonia. 2. No acute intracranial abnormality. 3. No acute fracture or traumatic malalignment cervical spine . 4. No acute intra-abdominal abnormality.
[2022-10-31] MEDS ORDERED: ONDANSETRON 4 MG/2 ML VIAL ONE (17:43)
[2022-10-31] MEDS ORDERED: FENTANYL CITR 100 MCG/2 ML ONE (17:43)
[2022-10-31 17:45] LABS: Blood Morphology Comment NOTED (NOT SEEN); Macrocytosis 1+; Platelet Estimate ADEQ
[2022-10-31] MEDS ORDERED: HYDRALAZINE HCL 20 MG/ML VIAL IV PRN (18:15)
--- NOTE | 2022-10-31 18:22 | P.PN ---
Brief Renal note (full consult note to follow by NLA team) Pt dialyzed earlier this afternoon and while initially hypertensive at the start of treatment, staff report pt did cramp with initial UF goal so UF goal was then lowered and only 1.2L removed and while pt got down to EDW, she left over the lower post weight from Thu. Chest imaging findings noted, pt with some hypoxia on blood gas testing but should be able to wait until tmrw AM for additional dialysis (HD ordered and communicated to [employer] consultant). Abx per primary team, dose for reduced CrCl. Rod Fields MD, SUZANNE
[2022-10-31] MEDS ORDERED: FUROSEMIDE 40 MG/4 ML VIAL IV ONE (18:28)
[2022-10-31] MEDS ORDERED: HOME MED 1 EA UNK (Hydralazine Hcl [Apresoline] 50 MG Tablet) PO SCH (18:45)
[2022-10-31] MEDS: KETOROLAC OPTHALMIC OPTH SCH (21:00)
[2022-10-31] MEDS ORDERED: VANCOMYCIN 1.5 GM in NA CHLORIDE 0.9% 500 ML IVPB ONE (21:00)
[2022-10-31] MEDS: HOME MED 1 EA UNK (Brimonidine Tartrate [Alphagan P] 10 ML Drops) OPTH SCH (21:00)
[2022-10-31] MEDS: HYDRALAZINE HCL 25 MG TABLET PO SCH (22:44)
[2022-10-31] MEDS: ATORVASTATIN 20 MG TAB PO SCH (22:44)
[2022-10-31] MEDS: AZTREONAM IV SCH (22:45)
[2022-10-31] MEDS: NA CHLORIDE 0.9% IV SCH (22:45)
[2022-10-31] MEDS: INSULIN -REGULAR HUMAN 50 UNIT/0.5 ML ML SQ SCH (22:46)
[2022-10-31 23:56] VITALS: BMI 26.6
[2022-11-01] MEDS: NA CHLORIDE 0.9% IV SCH (02:33)
[2022-11-01] MEDS: AZTREONAM IV SCH (02:33)
[2022-11-01 04:07] LABS: Absolute Lymphocytes (CBC) 0.4 K/uL (0.7-4.9); Hematocrit 36.7 % (36.0-45.0); MCV 105.9 fL (80-100); MPV 7.5 fL (7.6-11.3); RBC Red Blood Cell Count 3.46 M/uL (3.86-4.86)
[2022-11-01 04:26] LABS: Albumin 3.1 g/dL (3.4-5.0); Bilirubin Total 0.6 mg/dL (0.2-1.0); Magnesium 1.8 mg/dL (1.6-2.4); Potassium 3.1 mEq/L (3.5-5.1); Protein, Total 7.4 g/dL (6.4-8.2)
[2022-11-01 04:28] LABS: Phosphorus 1.4 mg/dL (2.5-4.9)
--- NOTE | 2022-11-01 07:10 | EKG ---
Test Date: 2022-10-31 Test Time: 17:32:30 Machine Filler Servicer: HB MEASUREMENT RESULTS: Intervals: Rate: 101 KS: 192 QRSD: 98 QT: 374 QTc: 484 [place]: P: 75 KS: 192 QRS: 84 T: 103 INTERPRETIVE STATEMENTS: Sinus tachycardia Incomplete right bundle branch block Nonspecific ST and T wave abnormality Abnormal ECG Compared to ECG 04/13/2022 16:31:20 Incomplete right bundle-branch block now present ST (T wave) deviation still present Electronically Signed On 11-01-22 07:09:23 CDT by Martínez Mccollum
[2022-11-01] MEDS: carvediloL 25 MG TAB PO SCH ×2 (08:00→17:00)
[2022-11-01] MEDS: HYDRALAZINE HCL 25 MG TABLET PO SCH ×2 (09:00→20:53)
[2022-11-01] MEDS: HEPARIN 5000 UNIT/ML 1 ML VIAL SQ SCH ×2 (09:00→20:53)
[2022-11-01] MEDS: AMLODIPINE 5 MG TAB PO SCH (09:00)
[2022-11-01] MEDS: KETOROLAC OPTHALMIC OPTH SCH ×2 (09:00→20:54)
[2022-11-01] MEDS: HOME MED 1 EA UNK (Brimonidine Tartrate [Alphagan P] 10 ML Drops) OPTH SCH ×2 (09:00→20:54)
[2022-11-01] MEDS ORDERED: HOME MED 1 EA UNK (Folic Acid/Vit B Complex And C [Dialyvite 800 Chewable Wafer] 800 MCG T PO SCH (09:00)
[2022-11-01] MEDS: INSULIN -REGULAR HUMAN 50 UNIT/0.5 ML ML SQ SCH ×4 (09:43→20:54)
--- NOTE | 2022-11-01 09:44 | P.CNS ---
Date of Consult: 11/01/22 Reason for Consult: Pneumonia Chief Complaint: Pneumonia shortness of breath weakness History of Present Illness: Patient is 72 years of age is on dialysis very poor historian only admitted with some pain in her right leg and pneumonia denies any fever or chills no cough she appears to be short of breath unable to ambulate recently had a neck surgery done patient's is wearing a collar patient has a C5-7 fusion of her cervical spine and having some weakness and fall Allergies chloramphenicol Allergy (Verified 09/13/20 12:02) Anaphylaxis morphine Allergy (Verified 09/13/20 12:02) Itching/Hives/Rash ondansetron [From Zofran] Allergy (Verified 09/13/20 12:02) Itching/Hives/Rash Penicillins Allergy (Verified 09/13/20 12:02) Anaphylaxis Home Medications: Atorvastatin Calcium 20 mg PO BEDTIME 07/31/20 Carvedilol [Coreg] 25 mg PO BIDWM 07/31/20 Cholecalciferol (Vitamin D3) [Vitamin D3] 5,000 unit PO DAILY 07/31/20 Glimepiride 4 mg PO DAILY 07/31/20 Ketorolac Opth [Acular 0.5% Opth Drops*] 1 drop OPTH BID 07/31/20 Amlodipine Besylate 10 mg PO DAILY 03/18/22 Hydralazine [Apresoline*] 25 mg PO SEECOM 03/18/22 Hydrocodone Bit/Acetaminophen [Hydrocodon-Acetaminophen 5-325] 1 tab PO PRN PRN MDD 2 03/18/22 Isosorbide Mononitrate [Isosorbide Mononitrate ER] 30 mg PO DAILY 03/18/22 Ascorbic Acid [C-1000] 1,000 mg PO DAILY 09/11/22 Aspirin [Aspirin EC 81 MG] 81 mg PO SEECOM 09/11/22 Brimonidine Tartrate [Alphagan P] 1 gtt OP BID 09/11/22 Ferric Citrate [Auryxia] 3 tab PO TIDWM 09/11/22 Folic Acid/Vit B Complex and C [Dialyvite 800 Chewable Wafer] 800 mg PO DAILY 09/11/22 Hydralazine HCl [Apresoline] 50 mg PO SEECOM 09/11/22 Montelukast [Singulair*] 10 mg PO DAILY 09/11/22 Pioglitazone [Actos*] 15 mg PO BID 09/11/22 Promethazine Tab [Phenergan*] 25 mg PO Q6HP PRN 09/11/22 Famotidine [Pepcid] 20 mg PO DAILY 10/31/22 Pantoprazole [Protonix Tab] 40 mg PO DAILY 10/31/22 Methoxy Peg-Epoetin Beta [Mircera] 50 mcg IJ SEECOM 11/01/22 Raw Probiotics 1 cap PO DAILY 11/01/22 - Past Medical/Surgical History Diabetic: Yes -: ESRD [place] HD MWF (Dr. Kee) -: NIDDM -: Hypertension -: Anemia chronic disease -: CHRONIC BACK PAIN -: GLUACOMA -: RETINIOPATHY -: SUPERFICIAL BASIL CELL CARCINOMA -: Asthma -: Hysterectomy -: Left total knee -: back surgery -: CATARACT HAMMAD EYES -: LUE HD placed -: 09/09/22 Cervical Myelopathy Psychosocial/ Personal History: Patient lives with her daughter and is retired - Family History Mother Medical History: Heart disease, Diabetes, Stroke Father Medical History: Cancer Sister Medical History: Cancer - Social History Alcohol use: No CD- Drugs: No Caffeine use: Yes Place of Residence: Home Review of Systems General: Weakness Respiratory: Shortness of Breath Musculoskeletal: Leg Pain Physical Examination Temp Pulse Resp BP Pulse Ox 100.7 F 97 H 16 182/76 H 96 11/01/22 08:00 11/01/22 08:00 11/01/22 08:00 11/01/22 08:00 11/01/22 08:00 General: Alert, Moderate distress Respiratory: Crackles/rales (Crackles on the left side) Cardiovascular: No edema, Regular rate/rhythm, Normal S1 S2 Gastrointestinal: Normal bowel sounds, Soft and benign, Non-distended Musculoskeletal: No clubbing, No swelling Laboratory Data (last 24 hrs) 10/31/22 15:36: PT 10.7, INR 0.97 10/31/22 15:36: WBC 10.80, Hgb 12.5, Hct 37.5, Plt Count 158 10/31/22 15:36: Sodium 132 L, Potassium 2.9 L, BUN 16, Creatinine 3.28 H, Glucose 219 H, Magnesium 1.7, Total Bilirubin 0.5, AST 13 L, ALT 19, Alkaline Phosphatase 154 H, Lipase 36 - Problems (1) Pneumonia Current Visit: Yes Status: Acute Plan: Patient is 72 years of age admitted with weakness she has been having some fever not able to walk some spinal surgery 6 weeks ago with C5-7 fusion patient is on dialysis normal white count CT scan shows pneumonia in the left lung vital signs reviewed with some fever elevated blood pressure patient is on aztreonam and vancomycin just changed over fluoroquinolone apparently she has anaphylaxis with penicillins patient's QTc and TAVR is mildly elevated aztreonam is a more Bactrim active against most spittle acquired organisms there is no activity against gram-positive organisms or anaerobes before recommend starting patient on levofloxacin 750 mg 1 dose and 500 mg every other day procalcitonin level is also elevated weakness of the legs may be from her underlying cervical myopathy occurred after the surgery physical therapy is in progress blood pressure is elevated Qualifiers: Pneumonia type: due to unspecified organism Laterality: left
[2022-11-01] MEDS: HYDROCODONE/APAP 5/325 MG TAB PO PRN ×2 (09:51→18:34)
[2022-11-01] MEDS: MONTELUKAST 10 MG TAB PO SCH (09:53)
[2022-11-01] MEDS: MULTIVITAMINS,THERAPEUT 1 TAB PO SCH (09:53)
[2022-11-01] MEDS: ISOSORBIDE MONO SR 30 MG TAB PO SCH (09:53)
[2022-11-01] MEDS: PANTOPRAZOLE 40MG TABLET PO SCH (09:54)
[2022-11-01] MEDS: FAMOTIDINE 20 MG TAB PO SCH (09:55)
[2022-11-01] MEDS ORDERED: levoFLOXacin 750 MG TAB PO ONE (11:00)
[2022-11-01] MEDS ORDERED: PNEUMOCOCCAL VACCINE 0.5 ML IMVAC ONE (12:00)
[2022-11-01] MEDS: PROMETHAZINE 25 MG TABLET PO PRN (12:15)
[2022-11-01] MEDS ORDERED: LIDOCAINE/PRILOCAINE CREAM TOP ONE (13:00)
[2022-11-01] MEDS ORDERED: ACETAMINOPHEN 500 MG TAB PO PRN (15:05)
[2022-11-01] MEDS ORDERED: ACETAMINOPHEN 500 MG TAB PO ONE (15:15)
--- NOTE | 2022-11-01 16:25 | CON ---
Date of Consultation: 11/01/2022 Reason For Consult: ESRD, on dialysis. History Of Present Illness: Ms. Butt is a 72-year-old female who was seen and examined at bedside . She is well known to us. She has history of ESRD, currently on dialysis on Thursday, Thursday, Thu schedule, who was brought into the hospital with generalized weakness and shortness of breath. S he reported that in August, she had a fusion of C5 to C7. Since the surgery, she has been experiencin g generalized weakness and recurrent falls. On October 23, she had a fall, presented to the ER, and wa s discharged home. On the morning of admission, she had another fall and describes that her legs dania p giving out. She stated that the weakness seems to be worse on the right compared to the left. Den ies any urinary symptoms. She was also reporting associated worsening shortness of breath, nausea, a nd neck pain. Upon presentation, she was found to have stable vital signs. However, on the CT scan, she was found to have multifocal airspace disease with consolidation in the left upper and left lowe r lobe consistent with pneumonia with possible superimposing pulmonary edema. Patient has been sched uled for dialysis today for additional fluid removal. Past Medical History: Significant for history of ESRD, on dialysis. Diabetes. Hypertension. Chron ic anemia. Chronic back pain. Retinopathy. Basal cell carcinoma. Asthma. Hysterectomy, and cervi wilfredo myelopathy. Social History: Lives with her daughter and is retired. No history of smoking, alcohol, or drug use reported. Family History: Noncontributory. Review of Systems: Positive for generalized weakness, associated with shortness of breath. All other review of systems is negative. Physical Examination: Vital Signs: At this time are showing temperature of 100.7, pulse rate of 97, respiratory rate of 16 , and blood pressure 182/76. General: She appears cachectic, malnourished. HEENT: Atraumatic head. Lungs: Auscultation of the lungs revealed diminished breath sounds all over with some occasional electric crane operator ckles. Heart: Auscultation of the heart revealed regular rate and rhythm. Abdomen: Soft and nontender. Extremities: Showed no evidence of edema. Laboratory Data: At this time are showing sodium of 135, potassium of 3.1, phosphorus of 1.4, and ca lcium of 10.1. CBC showing hemoglobin, hematocrit, and platelet count to be stable. Current Medications: Includes aztreonam 2 g every 24 hours, atorvastatin, amlodipine 10 mg a day, he otilio for DVT prophylaxis, hydralazine, hydrocodone p.r.n. for pain, Levaquin x1 time dose was given 750 mg, Singulair, vancomycin x1 time dose was given and then 500 mg has been ordered after each dial ysis. Impression: 1.End-stage renal disease, on dialysis. The patient is on Thursday, Thursday, Thursday dialysis. Mora filippo, she is scheduled to get an extra treatment today to improve her volume status and pulmonary yaz a. 2.Multifocal pneumonia noted on the CT scan. Continue antibiotics with vancomycin and aztreonam. C ontinue to monitor closely. 3.Uncontrolled hypertension. We will monitor blood pressures after dialysis after volume removal. 4.History of gastrointestinal bleed, currently with stable anemia. 5.Severe weakness and falls after recent cervical spinal surgery. Patient will need continued physi wilfredo therapy after she gets discharged to improve her functional status. Plan: Overall, patient is doing clinically stable. We are concerned about the findings on her CT sc an. The plan is to improve her volume status and assess her respiratory status closely and we will m ost likely need ongoing physical therapy after she gets discharged from the hospital. CYNTHIA/MOOSE Voice ID: [id number] Report ID: [id number]
[2022-11-01] MEDS ORDERED: VANCOMYCIN 500 MG in NA CHLORIDE 0.9% 100 ML IVPB SCH (17:00)
[2022-11-01] MEDS: ATORVASTATIN 20 MG TAB PO SCH (20:54)
[2022-11-01] MEDS ORDERED: AZTREONAM 2 GM in NA CHLORIDE 0.9% 100 ML IV SCH (21:00)
[2022-11-02 06:47] LABS: Absolute Lymphocytes (CBC) 0.7 K/uL (0.7-4.9); Hematocrit 34.3 % (36.0-45.0); Lymphocytes % 8.2 % (15.3-44.8); MCV 107.1 fL (80-100); MPV 8.2 fL (7.6-11.3)
[2022-11-02 07:26] LABS: Magnesium 1.9 mg/dL (1.6-2.4); Potassium 3.4 mEq/L (3.5-5.1)
[2022-11-02] MEDS: INSULIN -REGULAR HUMAN 50 UNIT/0.5 ML ML SQ SCH ×4 (07:30→20:22)
[2022-11-02] MEDS: MULTIVITAMINS,THERAPEUT 1 TAB PO SCH (08:49)
[2022-11-02] MEDS: MONTELUKAST 10 MG TAB PO SCH (08:49)
[2022-11-02] MEDS: ISOSORBIDE MONO SR 30 MG TAB PO SCH (08:49)
[2022-11-02] MEDS: HYDRALAZINE HCL 25 MG TABLET PO SCH ×2 (08:49→20:21)
[2022-11-02] MEDS: PANTOPRAZOLE 40MG TABLET PO SCH (08:50)
[2022-11-02] MEDS: HOME MED 1 EA UNK (Brimonidine Tartrate [Alphagan P] 10 ML Drops) OPTH SCH ×2 (08:50→20:22)
[2022-11-02] MEDS: carvediloL 25 MG TAB PO SCH ×2 (08:50→16:50)
[2022-11-02] MEDS: FAMOTIDINE 20 MG TAB PO SCH (08:50)
[2022-11-02] MEDS: AMLODIPINE 5 MG TAB PO SCH (08:51)
[2022-11-02] MEDS: KETOROLAC OPTHALMIC OPTH SCH ×2 (08:51→20:22)
[2022-11-02] MEDS: HEPARIN 5000 UNIT/ML 1 ML VIAL SQ SCH ×2 (08:51→20:21)
--- NOTE | 2022-11-02 10:08 | RAD REPORT ---
EXAM DESCRIPTION: Michelle Single View11/02/2022 9:38 am CLINICAL HISTORY: Shortness breath COMPARISON: October 31, 2022 FINDINGS: Mild progression in moderate left lung opacities No change mild right lung opacities Heart mildly enlarged IMPRESSION: Mild progression moderate left lung opacities probably pneumonia
[2022-11-02] MEDS ORDERED: PNEUMOCOCCAL VACCINE 0.5 ML IMVAC ONE (12:00)
--- NOTE | 2022-11-02 16:11 | P.PN ---
Subjective Date of Service: 11/01/22 Clinically doing better. Respirations are improved. Patient is scheduled for hemodialysis. Only, she will continue to improve after hemodialysis. Overall, patient is feeling much better. Review of Systems 10-point ROS is otherwise unremarkable Physical Examination - Vital Signs Temperature: 99.3 F Blood Pressure: 144/58 Pulse: 91 Respirations: 16 Pulse Ox (%): 90 - Physical Exam General: Alert, In no apparent distress, Oriented x3 HEENT: Atraumatic, PERRLA, EOMI Neck: Supple, JVD not distended Respiratory: Diminished, Expiratory wheezes Cardiovascular: Regular rate/rhythm, Normal S1 S2, No murmurs Gastrointestinal: Normal bowel sounds, Soft and benign, Non-distended, No tenderness Musculoskeletal: No clubbing, No swelling, Tenderness (upper extremity left arm) Neurological: Sensation intact, Cranial nerves 3-12 intact, Normal affect - Studies Medications List Reviewed: Yes Assessment & Plan - Problems (Diagnosis) (1) Pneumonia Current Visit: Yes Status: Acute Qualifiers: Pneumonia type: due to unspecified organism Laterality: left (2) Anemia in chronic kidney disease Current Visit: No Status: Acute (3) ESRD (end stage renal disease) Current Visit: No Status: Acute (4) H/O cervical spine surgery Current Visit: No Status: Acute (5) Shortness of breath Current Visit: No Status: Acute (6) CHF (congestive heart failure) Current Visit: No Status: Chronic Qualifiers: Heart failure type: unspecified Heart failure chronicity: acute on chronic Qualified Code(s): I50.9 - Heart failure, unspecified (7) Type 2 diabetes mellitus Current Visit: No Status: Chronic Qualifiers: Diabetes mellitus alf insulin use: without terminal supervisor use Diabetes mellitus complication status: with hyperglycemia Qualified Code(s): E11.65 - Type 2 diabetes mellitus with hyperglycemia (8) Macrocytic anemia Current Visit: Yes Status: Acute - Plan Plan: 1. Continue with IV antibiotics 2. Awaiting sputum and blood culture 3. Repeat chest x-ray 4. CT scan of the chest to further evaluate the pneumonia 5. Appreciate pulmonary consultation 6. Continue with nebs as needed 7. O2 per protocol 8. heplock IV 9. Repeat labs 10. Patient on HD 10. GI and DVT prophylaxis Discharge Plan: Home Plan to discharge in: Greater than 2 days - Advance Directives Does patient have a Living Will: No Does patient have a Durable POA for Healthcare: Yes - Code Status/Comfort Care Code Status Assessed: Yes Code Status: Full Code Critical Care: No Time Spent Managing PTS Care (In Minutes): 35
--- NOTE | 2022-11-02 16:23 | P.PN ---
Date of Service: 11/02/22 Subjective Patient is doing well. Patient denies any new complaints. X-ray with persistent pneumonia. Review of Systems 10-point ROS is otherwise unremarkable Physical Examination - Vital Signs REVIEWED - Physical Exam General: Alert, In no apparent distress, Oriented x3 Respiratory: Diminished but overall clear bilaterally Cardiovascular: Regular rate/rhythm, Normal S1 S2, No murmurs Gastrointestinal: Normal bowel sounds, Soft and benign, Non-distended, No tenderness Musculoskeletal: No clubbing, No swelling, Tenderness (upper extremity left arm) Neurological: No focal deficits - Studies Medications List Reviewed: Yes Assessment & Plan - Problems (Diagnosis) (1) Pneumonia Current Visit: Yes Status: Acute Qualifiers: Pneumonia type: due to unspecified organism Laterality: left (2) Anemia in chronic kidney disease Current Visit: No Status: Acute (3) ESRD (end stage renal disease) Current Visit: No Status: Acute (4) H/O cervical spine surgery Current Visit: No Status: Acute (5) Shortness of breath Current Visit: No Status: Acute (6) CHF (congestive heart failure) Current Visit: No Status: Chronic Qualifiers: Heart failure type: unspecified Heart failure chronicity: acute on chronic Qualified Code(s): I50.9 - Heart failure, unspecified (7) Type 2 diabetes mellitus Current Visit: No Status: Chronic Qualifiers: Diabetes mellitus snf insulin use: without snf use Diabetes mellitus complication status: with hyperglycemia Qualified Code(s): E11.65 - Type 2 diabetes mellitus with hyperglycemia (8) Macrocytic anemia Current Visit: Yes Status: Acute - Plan Continue with POC as mentioned below: 1. Continue with IV antibiotics 2. Awaiting sputum and blood culture; so far negative 3. Repeat chest x-ray pending 4. CT scan of the chest shows left sided pneumonia 5. Appreciate pulmonary consultation 6. Continue with nebs as needed 7. O2 per protocol 8. Heplock IV 9. Repeat labs 10. Patient on HD 10. GI and DVT prophylaxis Discharge Plan: Home Plan to discharge in: Greater than 2 days - Advance Directives Does patient have a Living Will: No Does patient have a Durable POA for Healthcare: Yes - Code Status/Comfort Care Code Status Assessed: Yes Code Status: Full Code Critical Care: No Time Spent Managing PTS Care (In Minutes): 35
[2022-11-02] MEDS: levoFLOXacin 250 MG TAB PO SCH (16:51)
[2022-11-02] MEDS ORDERED: VANCOMYCIN 500 MG in NA CHLORIDE 0.9% 100 ML IVPB SCH (18:00)
[2022-11-02] MEDS: ATORVASTATIN 20 MG TAB PO SCH (20:21)
[2022-11-02] MEDS: HYDROCODONE/APAP 5/325 MG TAB PO PRN (20:29)
--- NOTE | 2022-11-03 08:24 | RAD REPORT ---
EXAM DESCRIPTION: RAD - Chest Single View - 11/03/2022 5:19 am CLINICAL HISTORY: penumonia Chest pain. COMPARISON: Chest Single View dated 11/02/2022; Chest Single View dated 10/31/2022; Chest Single View da agle 04/13/2022; Chest Single View dated 08/09/2020 FINDINGS: Portable technique limits examination quality. Since 11/02/2022, there has been mild improvement in lung aeration, particularly involving the left l jeison. The heart is mildly to moderately enlarged. Cervical hardware plate. IMPRESSION: There has been mild improvement in lung aeration since 11/02/2022 study.
[2022-11-03 08:28] LABS: Absolute Lymphocytes (CBC) 0.6 K/uL (0.7-4.9); Hematocrit 32.7 % (36.0-45.0); Lymphocytes % 11.9 % (15.3-44.8); MCV 106.1 fL (80-100); MPV 8.2 fL (7.6-11.3); RBC Red Blood Cell Count 3.08 M/uL (3.86-4.86)
[2022-11-03] MEDS: INSULIN -REGULAR HUMAN 50 UNIT/0.5 ML ML SQ SCH ×3 (08:38→16:30)
[2022-11-03] MEDS: FAMOTIDINE 20 MG TAB PO SCH (08:39)
[2022-11-03] MEDS: PANTOPRAZOLE 40MG TABLET PO SCH (08:39)
[2022-11-03] MEDS: carvediloL 25 MG TAB PO SCH ×2 (08:39→16:34)
[2022-11-03] MEDS: HYDRALAZINE HCL 25 MG TABLET PO SCH (08:39)
[2022-11-03] MEDS: MULTIVITAMINS,THERAPEUT 1 TAB PO SCH (08:39)
[2022-11-03 08:40] VITALS: TEMP 97.6
[2022-11-03] MEDS: ISOSORBIDE MONO SR 30 MG TAB PO SCH (08:40)
[2022-11-03] MEDS: AMLODIPINE 5 MG TAB PO SCH (08:40)
[2022-11-03] MEDS: HEPARIN 5000 UNIT/ML 1 ML VIAL SQ SCH (08:40)
[2022-11-03] MEDS: KETOROLAC OPTHALMIC OPTH SCH (08:40)
[2022-11-03] MEDS: HOME MED 1 EA UNK (Brimonidine Tartrate [Alphagan P] 10 ML Drops) OPTH SCH (08:41)
[2022-11-03] MEDS: MONTELUKAST 10 MG TAB PO SCH (08:43)
[2022-11-03 08:54] LABS: Magnesium 2.2 mg/dL (1.6-2.4); Potassium 4.1 mEq/L (3.5-5.1)
[2022-11-03 09:48] VITALS: O2SAT 95
--- NOTE | 2022-11-03 11:18 | P.PN ---
Date of Service: 11/03/22 Vital Signs Temp Pulse Resp BP Pulse Ox 97.6 F 72 16 147/52 H 95 11/03/22 08:00 11/03/22 08:40 11/03/22 08:00 11/03/22 08:40 11/03/22 08:00 Medications Acetaminophen (Acetaminophen 500 Mg Tab) 500 mg PO Q6H PRN PRN Reason: TEMP > 100.4' F OR MILD PAIN Hydrocodone Bitart/Acetaminophen (Hydrocodone/Apap 5/325 Mg Tab) 1 tab PO BID PRN PRN Reason: Pain scale 8-10 (Severe) Last Admin: 11/02/22 20:29 Dose: 1 tab Amlodipine Besylate (Amlodipine 5 Mg Tab) 10 mg PO DAILY [facility] Last Admin: 11/03/22 08:40 Dose: 10 mg Atorvastatin Calcium (Atorvastatin 20 Mg Tab) 20 mg PO BEDTIME [facility] Last Admin: 11/02/22 20:21 Dose: 20 mg Carvedilol (Carvedilol 25 Mg Tab) 25 mg PO BIDWM [facility] Last Admin: 11/03/22 08:39 Dose: 25 mg Famotidine (Famotidine 20 Mg Tab) 20 mg PO DAILY [facility]; Protocol Last Admin: 11/03/22 08:39 Dose: 20 mg Heparin Sodium (Porcine) (Heparin 5000 Unit/Ml 1 Ml Vial) 5,000 unit SQ Q12HR [facility] Last Admin: 11/03/22 08:40 Dose: 5,000 unit Heparin Sodium (Porcine) (Heparin 1,000 Unit/Ml Vial) 2,000 unit IV EVERY HD PRN PRN Reason: Prevent Lines Clotting Last Admin: 11/01/22 14:13 Dose: 2,000 unit Home Med (Brimonidine Tartrate [Alphagan P]) 1 gtt OPTH BID [facility] Last Admin: 11/03/22 08:41 Dose: Not Given Home Med (Home Med 1 Ea Unk [Ketorolac Opthalmic 5 Ml Bot]) 1 ea OPTH BID [facility] Last Admin: 11/03/22 08:40 Dose: Not Given Hydralazine HCl (Hydralazine Hcl 20 Mg/Ml Vial) 10 mg IV Q4HP PRN PRN Reason: FOR SBP>160 OR DBP>100 MMHG Hydralazine HCl (Hydralazine Hcl 25 Mg Tablet) 25 mg PO MoWeFr@0900,2100 [facility] Last Admin: 11/03/22 08:39 Dose: 25 mg Hydralazine HCl (Hydralazine Hcl 25 Mg Tablet) 50 mg PO SuTuThSa@0900,2100 [facility] Last Admin: 11/02/22 20:21 Dose: 50 mg Insulin Human Regular (Insulin -Regular Human 50 Unit/0.5 Ml Ml) 0 unit SQ ACHS [facility]; Protocol Last Admin: 11/03/22 08:38 Dose: 100 unit Isosorbide Mononitrate (Isosorbide Stone Sr 30 Mg Tab) 30 mg PO DAILY [facility] Last Admin: 11/03/22 08:40 Dose: 30 mg Levofloxacin (Levofloxacin 250 Mg Tab) 250 mg PO DAILY@1800 [facility]; Protocol Last Admin: 11/02/22 16:51 Dose: 250 mg Montelukast Sodium (Montelukast 10 Mg Tab) 10 mg PO DAILY [facility] Last Admin: 11/03/22 08:43 Dose: 10 mg Pantoprazole Sodium (Pantoprazole 40mg Tablet) 40 mg PO DAILY [facility]; Protocol Last Admin: 11/03/22 08:39 Dose: 40 mg Promethazine HCl (Promethazine 25 Mg Tablet) 25 mg PO Q6HP PRN PRN Reason: NAUSEA / VOMITING Last Admin: 11/01/22 12:15 Dose: 25 mg Sodium Chloride (Flush Normal Saline 10 Ml) 10 ml IV BID [facility] Last Admin: 11/03/22 08:41 Dose: 10 ml Vitamin B Complex/Vit C/Folic Acid (Multivitamins,Therapeut 1 Tab) 1 tab PO DAILY [facility] Last Admin: 11/03/22 08:39 Dose: 1 tab Microbiology Results 10/31/22 17:34 Blood - Blood Aerobic Blood Culture - Preliminary No growth in 24 hours. 10/31/22 17:34 Blood - Blood Anaerobic Blood Culture - Preliminary No growth in 24 hours. Assessment/ Plan: Nephrology No chest pain No dyspnea Feeling better Cough No acute events overnight Vitals, medications, blood work and imaging reviewed in the chart. NAD. MMM. NCAT. CTA. RRR. Soft Abd. No C/C/E. No rash. AAO. Normal speech. ESRD on HD -HD TIW MWF HTN with CKD/ CHF -Continue Amlodipine and Coreg Diastolic CHF, A/C -Low sodium diet -Daily weight -HD with UF DM II with CKD -RISS Anemia in CKd -Retacrit PRN CKD MBD -Start Ergo Lobar PNA -Continue Levaquin Case reviewed with Dr. Jimenez
[2022-11-03] MEDS: PROMETHAZINE 25 MG TABLET PO PRN (11:40)
[2022-11-03] MEDS: HYDROCODONE/APAP 5/325 MG TAB PO PRN (11:45)
[2022-11-03] MEDS ORDERED: DRISDOL (VITAMIN D=ERGOCALCIFEROL) 50000 UNIT CAP PO SCH (12:00)
--- NOTE | 2022-11-03 12:52 | P.CNS ---
Date of Consult: 11/03/22 Chief Complaint: Pneumonia shortness of breath weakness History of Present Illness: Patient is a 72 yo female with a medical history significant for ESRD, DM2 and hypertension who presented to the ED with complaints of shortness of breath and generalized weakness. She reports experiencing generalized weakness and recurrent falls since undergoing a c5-c7 fusion in August 2022. Upon presentation, she was afebrile, WBC 10.8, glucose 251, Cr 3.28. CXR obtained in ED showing "increasing prominence of the pulmonary interstitium possibly representing edema. Left mid lung opacities are slightly are more consolidative and could reflect a superimposed pneumonia." Patient is currently sitting in wheelchair at side of bed, A&O x 3, breathing comfortably on room air. 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 Allergies chloramphenicol Allergy (Verified 09/13/20 12:02) Anaphylaxis morphine Allergy (Verified 09/13/20 12:02) Itching/Hives/Rash ondansetron [From Zofran] Allergy (Verified 09/13/20 12:02) Itching/Hives/Rash Penicillins Allergy (Verified 09/13/20 12:02) Anaphylaxis Home medications list reviewed: Yes Home Medications: Atorvastatin Calcium 20 mg PO BEDTIME 07/31/20 Carvedilol [Coreg] 25 mg PO BIDWM 07/31/20 Cholecalciferol (Vitamin D3) [Vitamin D3] 5,000 unit PO DAILY 07/31/20 Glimepiride 4 mg PO DAILY 07/31/20 Ketorolac Opth [Acular 0.5% Opth Drops*] 1 drop OPTH BID 07/31/20 Amlodipine Besylate 10 mg PO DAILY 03/18/22 Hydralazine [Apresoline*] 25 mg PO SEECOM 03/18/22 Hydrocodone Bit/Acetaminophen [Hydrocodon-Acetaminophen 5-325] 1 tab PO PRN PRN MDD 2 03/18/22 Isosorbide Mononitrate [Isosorbide Mononitrate ER] 30 mg PO DAILY 03/18/22 Ascorbic Acid [C-1000] 1,000 mg PO DAILY 09/11/22 Aspirin [Aspirin EC 81 MG] 81 mg PO SEECOM 09/11/22 Brimonidine Tartrate [Alphagan P] 1 gtt OP BID 09/11/22 Ferric Citrate [Auryxia] 3 tab PO TIDWM 09/11/22 Folic Acid/Vit B Complex and C [Dialyvite 800 Chewable Wafer] 800 mg PO DAILY 09/11/22 Hydralazine HCl [Apresoline] 50 mg PO SEECOM 09/11/22 Montelukast [Singulair*] 10 mg PO DAILY 09/11/22 Pioglitazone [Actos*] 15 mg PO BID 09/11/22 Promethazine Tab [Phenergan*] 25 mg PO Q6HP PRN 09/11/22 Famotidine [Pepcid] 20 mg PO DAILY 10/31/22 Pantoprazole [Protonix Tab] 40 mg PO DAILY 10/31/22 Methoxy Peg-Epoetin Beta [Mircera] 50 mcg IJ SEECOM 11/01/22 Raw Probiotics 1 cap PO DAILY 11/01/22 - Past Medical/Surgical History Diabetic: Yes -: ESRD [place] HD MWF (Dr. Kee) -: NIDDM -: Hypertension -: Anemia chronic disease -: CHRONIC BACK PAIN -: GLUACOMA -: RETINIOPATHY -: SUPERFICIAL BASIL CELL CARCINOMA -: Asthma -: Hysterectomy -: Left total knee -: back surgery -: CATARACT HAMMAD EYES -: LUE HD placed -: 09/09/22 Cervical Myelopathy Psychosocial/ Personal History: Patient lives with her daughter and is retired - Family History Mother Medical History: Heart disease, Diabetes, Stroke Father Medical History: Cancer Sister Medical History: Cancer - Social History Alcohol use: No CD- Drugs: No Caffeine use: Yes Place of Residence: Home Review of Systems 10-point ROS is otherwise unremarkable General: Weakness Respiratory: Unremarkable Gastrointestinal: Unremarkable Genitourinary: Unremarkable Physical Examination Temp Pulse Resp BP Pulse Ox 97.6 F 72 16 147/52 H 95 11/03/22 08:00 11/03/22 08:40 11/03/22 11:45 11/03/22 08:40 11/03/22 11:45 General: Alert, In no apparent distress, Oriented x3 HEENT: Atraumatic, Normocephalic Neck: Supple, JVD not distended Respiratory: Diminished (bibasilar) Cardiovascular: No edema, Normal pulses Gastrointestinal: Normal bowel sounds, Soft and benign, Non-distended, No tenderness Musculoskeletal: No clubbing, No swelling Integumentary: No rashes, No breakdown Neurological: Normal speech, Normal tone, Normal affect Laboratory Data - Reviewed Microbiology Data - Reviewed Imagings Data: - Reviewed Conclusions/Impression: Problem List ESRD, on HD MWF Diabetes Mellitus type 2 Anemia of chronic disease Hypertension Glaucoma Diabetic Retinopathy Pneumonia Pneumonia - XR Chest 10/31: "increasing prominence of the pulmonary interstitium possibly representing edema. Left mid lung opacities are slightly are more consolidative and could reflect a superimposed pneumonia." - XR Chest 11/03: mild improvement in aeration since 11/02 study - Denies any shortness of breath, cough or chest pain. Breathing comfortably on room air. - On Levaquin (started 11/01) Afebrile No Leukocytosis Blood cultures 10/31: No growth to date Recommendations - Continue Levaquin PO x 7 days total (started 11/01). Patient tolerating Levaquin PO and as been doing well, improving. ID will follow as needed and monitor WBC and fever trends. Case discussed with Ronda Hayden
--- NOTE | 2022-11-03 14:11 | P.DS ---
Admission Date: 10/31/22 Discharge Date: 11/03/22 Disposition: ROUTINE DISCHARGE Discharge Condition: GOOD Reason for Admission: Pneumonia shortness of breath weakness Consultations: 1. Pulmonology 2. Nephrology 3. 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 Tracy Butt is a pleasant 72 old female with a past medical history significant for end-stage renal disease on MWF iHD, type II diabetes mellitus, and hypertension who was admitted to the [facility] on 10/31/2022 for generalized weakness and shortness of breath. She was admitted to the Medicine service. Upon presentation, her chest x-ray revealed, "increasing prominence of the pulmonary interstitium possibly representing edema. Left mid lung opacities are slightly are more consolidative and could reflect a superimposed pneumonia." Her CT head/cervical spine/chest/abdomen/pelvis revealed, "1. Multifocal airspace disease including consolidation in the left upper and left lower lobe consistent with pneumonia. 2. No acute intracranial abnormality. 3. No acute fracture or traumatic malalignment cervical spine. 4. No acute intra-abdominal abnormality." Bilateral lower extremity Doppler revealed, "no DVT in either lower extremity." She was treated with IV antibiotics and volume removal via hemodialysis, with significant improvement in her symptoms. Today, her chest x-ray revealed, "there has been mild improvement in lung aeration since 11/02/2022 study." This morning, her symptoms improved significantly and she requested to be discharged home. She has been working well with PT. We discussed the possibility of SNF/rehab placement, Home Health, and outpatient rehab. Both her and her daughter, Ms. Adri Rosas, elected to proceed with outpatient PT/OT. In regards to her outpatient antibiotic regimen, Infectious Diseases was consulted. She was evaluated by Dr. Marc, who recommended an additional 7 days of levofloxacin. On 11/03/2022, she was seen on rounds and deemed medically stable for discharge. She was discharged with instructions to schedule follow-up appointments with her PCP/Manager Inventory Control (Dr. Kee) and with Pulmonology (Dr. Cabrera). She was counseled to have a repeat chest x-ray in 2-3 weeks to ensure resolution of her pneumonia. She was provided a prescription for levofloxacin. She and her daughter were given the opportunity to ask questions and reported no further questions. Furthermore, all questions were answered to the best of my ability. A copy of this discharge summary will be sent to the above providers to facilitate continuity of care. Today, I personally spent 25 minutes on her case, of which greater than 50% of the time was spent in patient education, counseling, and coordination of care as described above. Vital Signs/Physical Exam: Temp Pulse Resp BP Pulse Ox 97.6 F 72 16 147/52 H 95 11/03/22 08:00 11/03/22 08:40 11/03/22 11:45 11/03/22 08:40 11/03/22 11:45 General: Alert, In no apparent distress, Oriented x3 HEENT: Atraumatic, Mucous membr. moist/pink, Other (neck in brace), Sclerae nonicteric Respiratory: Clear to auscultation bilaterally, Diminished Cardiovascular: No edema, Regular rate/rhythm, Normal S1 S2, No gallops, No rubs, No murmurs Gastrointestinal: Normal bowel sounds, Soft and benign, Non-distended, No tenderness, No rebound, No guarding Musculoskeletal: No clubbing Integumentary: No rashes Neurological: Normal speech, Normal strength at 5/5 x4 extr, Sensation intact, Cranial nerves 3-12 intact, Normal affect Laboratory Data at Discharge: WBC 5.30 thou/uL (4.3-10.9) 11/03/22 08:19 Hgb 10.7 g/dL (12.0-15.0) L 11/03/22 08:19 Hct 32.7 % (36.0-45.0) L 11/03/22 08:19 Plt Count 157 thou/uL (152-406) 11/03/22 08:19 PT 10.7 SECONDS (9.5-12.5) 10/31/22 15:36 INR 0.97 10/31/22 15:36 Sodium 133 mEq/L (136-145) L 11/03/22 08:19 Potassium 4.1 mEq/L (3.5-5.1) D 11/03/22 08:19 BUN 51 mg/dL (7-18) H 11/03/22 08:19 Creatinine 5.82 mg/dL (0.55-1.02) H 11/03/22 08:19 Glucose 215 mg/dL (74-106) H 11/03/22 08:19 Phosphorus 3.1 mg/dL (2.5-4.9) 11/03/22 08:19 Magnesium 2.2 mg/dL (1.6-2.4) 11/03/22 08:19 Total Bilirubin 0.6 mg/dL (0.2-1.0) 11/01/22 03:34 AST 15 U/L (15-37) 11/01/22 03:34 ALT 19 U/L (13-56) 11/01/22 03:34 Alkaline Phosphatase 126 U/L (45-117) H 11/01/22 03:34 Lipase 36 U/L (13-75) 10/31/22 15:36 Home Medications: Atorvastatin Calcium 20 mg PO BEDTIME 07/31/20 Carvedilol [Coreg] 25 mg PO BIDWM 07/31/20 Cholecalciferol (Vitamin D3) [Vitamin D3] 5,000 unit PO DAILY 07/31/20 Glimepiride 4 mg PO DAILY 07/31/20 Ketorolac Opth [Acular 0.5% Opth Drops*] 1 drop OPTH BID 07/31/20 Amlodipine Besylate 10 mg PO DAILY 03/18/22 Hydralazine [Apresoline*] 25 mg PO SEECOM 03/18/22 Hydrocodone Bit/Acetaminophen [Hydrocodon-Acetaminophen 5-325] 1 tab PO PRN PRN MDD 2 03/18/22 Isosorbide Mononitrate [Isosorbide Mononitrate ER] 30 mg PO DAILY 03/18/22 Ascorbic Acid [C-1000] 1,000 mg PO DAILY 09/11/22 Aspirin [Aspirin EC 81 MG] 81 mg PO SEECOM 09/11/22 Brimonidine Tartrate [Alphagan P] 1 gtt OP BID 09/11/22 Ferric Citrate [Auryxia] 3 tab PO TIDWM 09/11/22 Folic Acid/Vit B Complex and C [Dialyvite 800 Chewable Wafer] 800 mg PO DAILY 09/11/22 Hydralazine HCl [Apresoline] 50 mg PO SEECOM 09/11/22 Montelukast [Singulair*] 10 mg PO DAILY 09/11/22 Promethazine Tab [Phenergan*] 25 mg PO Q6HP PRN 09/11/22 Famotidine [Pepcid*] 20 mg PO DAILY 10/31/22 Pantoprazole [Protonix Tab*] 40 mg PO DAILY 10/31/22 Methoxy Peg-Epoetin Beta [Mircera] 50 mcg IJ SEECOM 11/01/22 Raw Probiotics 1 cap PO DAILY 11/01/22 levoFLOXacin [Levaquin*] 250 mg PO DAILY@1800 7 Days #7 tab 11/03/22 New Medications: levoFLOXacin [Levaquin*] 250 mg PO DAILY@1800 7 Days #7 tab Physician Discharge Instructions: 1. Please call and schedule a follow-up appointment with your PCP/Manager Inventory Control (Dr. Kee) in 3-5 days - Please have him repeat your chest x-ray in 2-3 weeks to make sure your pneumonia has healed 2. Please call and schedule a follow-up appointment with Pulmonology (Dr. Cabrera) in 5-7 days Followup: Willie Kee DO [Primary Care Provider] - Time spent managing pt's care (in minutes): 25
[2022-11-03] MEDS: levoFLOXacin 250 MG TAB PO SCH (16:34)
[2022-11-03 16:35] VITALS: BP 142/60
[2022-11-03] MEDS ORDERED: DOCUSATE NA 100 MG CAP PO SCH (21:00)
== END 2022-11-03 16:53 | disposition home or self-care (01) | DRG 871 ==
LOC: ER 14:57 → ERHOLD 17:45 → 4TH 19:53
PROVIDERS: ADMIT Internal Medicine; ATTEND Internal Medicine
PROC: 5A1D70Z Performance of Urinary Filtration, Intermittent, Less than 6 Hours Per Day (ICD-10-PCS; principal; 2022-11-01)
DX: A41.9 Sepsis, unspecified organism (principal); I50.33 Acute on chronic diastolic (congestive) heart failure; J18.9 Pneumonia, unspecified organism; J96.01 Acute respiratory failure with hypoxia; N18.6 End stage renal disease; I13.2 Hypertensive heart and chronic kidney disease with heart failure and with stage 5 chronic kidney disease, or end stage renal disease; E11.22 Type 2 diabetes mellitus with diabetic chronic kidney disease; E11.65 Type 2 diabetes mellitus with hyperglycemia; D63.1 Anemia in chronic kidney disease; I16.0 Hypertensive urgency; E78.5 Hyperlipidemia, unspecified; E87.6 Hypokalemia; D53.9 Nutritional anemia, unspecified; G89.29 Other chronic pain; M54.9 Dorsalgia, unspecified; Z66 Do not resuscitate; Z88.0 Allergy status to penicillin; Z88.5 Allergy status to narcotic agent; Z99.2 Dependence on renal dialysis; Z79.84 Long term (current) use of oral hypoglycemic drugs; Z79.82 Long term (current) use of aspirin; Z91.040 Latex allergy status
CPT/HCPCS: 36415; 70450; 71045; 71250; 72125; 80048; 80053; 80076; 80202; 82607; 82805; 82947; 83540; 83605; 83690; 83735; 83880; 84100; 84132; 84145; 84484; 85025; 85610; 87040; 90935; 93005; 93970; 94010; 96372; 96374; 97161; 97530; 99285; J1644; J1650; J1815; J1940; J2405; J3010; J7040; Q0169

== ENCOUNTER 2022-12-06 13:39 | Emergency (ER) | payer OTHER ==
[2022-12-06 14:25] LABS: Absolute Lymphocytes (CBC) 0.7 K/uL (0.7-4.9); Hematocrit 25.9 % (36.0-45.0); Lymphocytes % 9.6 % (15.3-44.8); MCV 104.1 fL (80-100); MPV 7.5 fL (7.6-11.3); RBC Red Blood Cell Count 2.49 M/uL (3.86-4.86)
[2022-12-06 14:31] LABS: Protime INR 1.06
[2022-12-06 14:39] LABS: Potassium 3.5 mEq/L (3.5-5.1)
--- NOTE | 2022-12-06 15:09 | RAD REPORT ---
EXAM DESCRIPTION: RAD - Knee Left 3 View - 12/06/2022 3:01 pm CLINICAL HISTORY: PAIN COMPARISON: No comparisonsNo comparisons FINDINGS/IMPRESSION: No acute fracture. No malalignment. No significant focal degenerative changes. Status post left total knee arthroplasty.
--- NOTE | 2022-12-06 16:25 | EDPHYS ---
Physician Documentation [facility] Name: Tarcy Butt Age: 72 yrs Sex: Female : 1950 Arrival Date: 12/06/2022 Time: 13:39 Bed 19 Private MD: Willie Kee ED Physician Sven Osuna HPI: 12/06 15:00 This 72 yrs old Female presents to ER via Wheelchair with complaints of Abnormal prn physical therapist Results, Knee Pain. 15:00 The patient presents with an injury, pain. The complaints affect the left knee. rn 15:00 Onset: The symptoms/episode began/occurred 2 day(s) ago. Modifying factors: The rn symptoms are alleviated by remaining still, the symptoms are aggravated by weight bearing. Severity of symptoms: At their worst the symptoms were moderate, in the emergency department the symptoms have improved. The patient has not experienced similar symptoms in the past. The patient has not recently seen a physician. Pt reports here for 2 reasons, left knee injury, and low hemoglobin. Reports left knee gave out the other day, leg folded, can move it fine as long as she doesn't put weight on it. Also reports hemoglobin has slowly been dropping, was told last week was 7.6, is dialysis patient, and has had GI bleed in past so wanted to recheck her hemoglobin to make sure it is not going down further. Denies intestinal bleeding/hematemesis/melena. . Historical: - Allergies: 14:00 CHLORAMPHENICOL; bp 14:00 Latex, Natural Rubber; bp 14:00 PENICILLINS; bp 14:00 Zofran or Morphine, last time I was here I had itching to either 1 of them; bp - Home Meds: 14:00 vitamin A 8,000 unit Oral cap 1 cap once daily [Active]; doxazosin 2 mg Oral tab 1 tab bp twice a day [Active]; furosemide 20 mg Oral tab 1 tab once daily [Active]; glimepiride 2 mg Oral tab 1 tab twice a day [Active]; hydralazine 100 mg Oral tab 1 tab 3 times per day [Active]; furosemide 40 mg Oral tab 1 tab once daily [Active]; Integra F 125-1-40-3 mg Oral cap 1 cap once daily [Active]; Iron CR 65 mg Oral twice a day [Active]; ketorolac 0.4 % ophthalmic drop [Active]; hydrocortisone 2.5 % Topical crea once daily [Active]; darbepoetin bella in polysorbate injection [Active]; Procrit Inj [Active]; Pepcid Oral [Active]; losartan 50 mg Oral tab 1 tab once daily [Active]; carvedilol 25 mg Oral tab 1 tab 2 times per day [Active]; Cardura 8 mg Oral tab 1 tab once daily [Active]; brimonidine 0.2 % ophthalmic drop 1 drop every 8 hours [Active]; atorvastatin 20 mg Oral tab 1 tab once daily [Active]; calcium acetate miscellaneous powd [Active]; - PMHx: 14:00 MWF Dialysis; kidney disease; Diabetes - NIDDM; Hypertension; Anemia; bp - PSHx: 14:00 LUE dialysis access; bp - Immunization history:: Adult Immunizations up to date. - Social history:: Smoking status: Patient denies any tobacco usage or history of. - Family history:: not pertinent. - Hospitalizations: : No recent hospitalization is reported. ROS: 15:00 Constitutional: Negative for fever, chills, and weight loss, Cardiovascular: Negative rn for chest pain, palpitations, and edema, Respiratory: Negative for cough, wheezing, and pleuritic chest pain, Abdomen/GI: Negative for abdominal pain, nausea, vomiting, diarrhea, and constipation, Back: Negative for injury and pain, MS/Extremity: + left knee injury and pain Skin: Negative for injury, rash, and discoloration, Neuro: Negative for headache, numbness, tingling, and seizure. Exam: 15:00 Constitutional: This is a well developed, well nourished patient who is awake, alert, rn and in no acute distress. Cardiovascular: Regular rate and rhythm. No pulse deficits. Respiratory: No increased work of breathing, no retractions or nasal flaring. Skin: Warm, dry MS/ Extremity: Pulses equal, no cyanosis. Neurovascular intact. FROM from seated position, mild tenderness inferior left knee, no effusion noted, no open skin wounds. Neuro: Awake and alert, GCS 15 Vital Signs: 14:03 BP 147 / 50; Pulse 81; Resp 16; Temp 98; Pulse Ox 98% ; bp MDM: 13:53 Patient medically screened. rn 16:20 Differential diagnosis: closed fracture, contusion, sprain, strain, hardware problem. rn Data reviewed: vital signs, nurses notes, lab test result(s), radiologic studies, plain films, and as a result, I will discharge patient. Counseling: I had a detailed discussion with the patient and/or guardian regarding: the historical points, exam findings, and any diagnostic results supporting the discharge/admit diagnosis, lab results, radiology results, the need for outpatient follow up, to return to the emergency department if symptoms worsen or persist or if there are any questions or concerns that arise at home. Special discussion: I discussed with the patient/guardian in detail that at this point there is no indication for admission to the hospital. It is understood, however, that if the symptoms persist or worsen the patient needs to return immediately for re-evaluation. ED course: Hemoglobin has improved and denies active bleeding. Xray without acute findings. Will place in knee immobilizer and return precautions given and understood. Pt still on reeval denies hip/proximal/distal pain or tenderness, still really only knee pain with weight bearing. . 12/06 14:06 Order name: CBC with Diff; Complete Time: 14:42 rn 12/06 14:06 Order name: Basic Metabolic Panel; Complete Time: 14:42 rn 12/06 14:06 Order name: Protime (+inr); Complete Time: 14:42 rn 12/06 14:06 Order name: Ptt, Activated; Complete Time: 14:42 rn 12/06 14:06 Order name: XRAY Knee LEFT 3 view; Complete Time: 15:35 rn 12/06 14:06 Order name: IV Start; Complete Time: 14:21 rn 12/06 16:20 Order name: Knee Immobilizer; Complete Time: 16:49 rn Administered Medications: No medications were administered Disposition Summary: 12/06/22 16:24 Discharge Ordered Location: Home rn Problem: new rn Symptoms: have improved rn Condition: Stable rn Diagnosis - Sprain of unspecified site of left knee, initial encounter rn - Anemia, unspecified rn Followup: rn - With: Private Physician - When: As needed - Reason: Recheck today's complaints, Re-evaluation by your physician Discharge Instructions: - Discharge Summary Sheet rn - Anemia rn - How to Use a Knee Immobilizer rn - Knee Sprain, Adult rn Forms: - Medication Reconciliation Form rn - Thank You Letter rn - Antibiotic rn transfer - Prescription Opioid Use rn Signatures: Dispatcher [employer] Sven De Jesus MD MD rn Peltier, Brian, RN RN bp
--- NOTE | 2022-12-06 16:25 | ER ---
Nurse's Notes [facility] Name: Tracy Butt Age: 72 yrs Sex: Female : 1950 Arrival Date: 12/06/2022 Time: 13:39 Bed 19 Private MD: Willie Kee Diagnosis: Sprain of unspecified site of left knee, initial encounter;Anemia, unspecified Presentation: 12/06 13:59 Chief complaint: Patient states: LOW H/H. Coronavirus screen: At this time, the client bp does not indicate any symptoms associated with coronavirus-19. Ebola Screen: No symptoms or risks identified at this time. Initial Sepsis Screen: Does the patient meet any 2 criteria? No. Patient's initial sepsis screen is negative. Does the patient have a suspected source of infection? No. Patient's initial sepsis screen is negative. Risk Assessment: Do you want to hurt yourself or someone else? Patient reports no desire to harm self or others. Onset of symptoms is unknown. 13:59 Method Of Arrival: Wheelchair bp 13:59 Acuity: ANTHONY 3 bp Triage Assessment: 14:00 General: Appears distressed, Behavior is cooperative, appropriate for age, anxious. bp Pain: Denies pain. EENT: No deficits noted. Neuro: No deficits noted. Cardiovascular: No deficits noted. Respiratory: No deficits noted. GI: Reports bloody stool. : No signs and/or symptoms were reported regarding the genitourinary system. Derm: No deficits noted. Musculoskeletal: No deficits noted. Historical: - Allergies: 14:00 CHLORAMPHENICOL; bp 14:00 Latex, Natural Rubber; bp 14:00 PENICILLINS; bp 14:00 Zofran or Morphine, last time I was here I had itching to either 1 of them; bp - Home Meds: 14:00 vitamin A 8,000 unit Oral cap 1 cap once daily [Active]; doxazosin 2 mg Oral tab 1 tab bp twice a day [Active]; furosemide 20 mg Oral tab 1 tab once daily [Active]; glimepiride 2 mg Oral tab 1 tab twice a day [Active]; hydralazine 100 mg Oral tab 1 tab 3 times per day [Active]; furosemide 40 mg Oral tab 1 tab once daily [Active]; Integra F 125-1-40-3 mg Oral cap 1 cap once daily [Active]; Iron CR 65 mg Oral twice a day [Active]; ketorolac 0.4 % ophthalmic drop [Active]; hydrocortisone 2.5 % Topical crea once daily [Active]; darbepoetin bella in polysorbate injection [Active]; Procrit Inj [Active]; Pepcid Oral [Active]; losartan 50 mg Oral tab 1 tab once daily [Active]; carvedilol 25 mg Oral tab 1 tab 2 times per day [Active]; Cardura 8 mg Oral tab 1 tab once daily [Active]; brimonidine 0.2 % ophthalmic drop 1 drop every 8 hours [Active]; atorvastatin 20 mg Oral tab 1 tab once daily [Active]; calcium acetate miscellaneous powd [Active]; - PMHx: 14:00 MWF Dialysis; kidney disease; Diabetes - NIDDM; Hypertension; Anemia; bp - PSHx: 14:00 LUE dialysis access; bp - Immunization history:: Adult Immunizations up to date. - Social history:: Smoking status: Patient denies any tobacco usage or history of. - Family history:: not pertinent. - Hospitalizations: : No recent hospitalization is reported. Screenin:45 [facility] ED Fall Risk Assessment (Adult) Score/Fall Risk Level 0 - 2 = Low Risk. Abuse eh3 screen: Denies threats or abuse. Denies injuries from another. Nutritional screening: No deficits noted. Tuberculosis screening: No symptoms or risk factors identified. Assessment: 15:45 General: Appears in no apparent distress. uncomfortable, Behavior is calm, cooperative, eh3 appropriate for age. Pain: Complains of pain in left knee. Neuro: Level of Consciousness is awake, alert, obeys commands, Oriented to person, place, time, situation. Cardiovascular: Capillary refill < 3 seconds Patient's skin is warm and dry. Respiratory: Airway is patent Respiratory effort is even, unlabored, Respiratory pattern is regular, symmetrical. GI: Abdomen is round non-distended. Musculoskeletal: Circulation, motion, and sensation intact. Swelling present in left knee. Vital Signs: 14:03 BP 147 / 50; Pulse 81; Resp 16; Temp 98; Pulse Ox 98% ; bp ED Course: 13:44 Patient arrived in ED. im 13:45 Willie Kee DO is Private Physician. im 13:52 Sven Osuna MD is Attending Physician. rn 13:59 Triage completed. bp 14:03 Arm band placed on. bp 14:21 Protime (+inr) Sent. mb9 14:21 Ptt, Activated Sent. mb9 14:22 Basic Metabolic Panel Sent. mb9 14:22 CBC with Diff Sent. mb9 14:22 Inserted saline lock: 20 gauge in right antecubital area, using aseptic technique. mb9 15:02 XRAY Knee LEFT 3 view In Process Unspecified. EDMS 15:37 Catalina Goyal, RN is Primary Nurse. eh3 15:45 Patient has correct armband on for positive identification. Call light in reach. eh3 16:45 No provider procedures requiring assistance completed. IV discontinued, intact, eh3 bleeding controlled, No redness/swelling at site. Pressure dressing applied. 16:45 Knee immobilizer applied on left knee. eh3 Administered Medications: No medications were administered Medication: 16:45 VIS not applicable for this client. eh3 Outcome: 16:24 Discharge ordered by . rn 16:45 Discharged to home via wheelchair. eh3 16:45 Condition: stable 16:45 Discharge instructions given to patient, Instructed on discharge instructions, follow up and referral plans. Demonstrated understanding of instructions, follow-up care. 16:49 Patient left the ED. eh3 Signatures: Dispatcher [employer] EDDC Sven Osuna MD MD rn Peltier, Brian, RN RN Catalina Mercado, RN RN 3 Venus Gonzalez RN RN mb9 Francoise Luna im
[2022-12-06 17:28] VITALS: BP 147/50; TEMP 98; O2SAT 98
== END 2022-12-06 16:49 | disposition home or self-care (01) ==
LOC: ER 13:39
DX: S83.92XA Sprain of unspecified site of left knee, initial encounter (principal); D64.9 Anemia, unspecified; E11.22 Type 2 diabetes mellitus with diabetic chronic kidney disease; N18.6 End stage renal disease; Z99.2 Dependence on renal dialysis; Z88.0 Allergy status to penicillin; Z88.5 Allergy status to narcotic agent; Z88.8 Allergy status to other drugs, medicaments and biological substances; Z91.040 Latex allergy status; Z91.048 Other nonmedicinal substance allergy status
CPT/HCPCS: 36415; 80048; 85025; 85610; 85730; 99284

== ENCOUNTER 2023-04-03 14:12 | Observation (INO) | payer OTHER ==
--- OUTSIDE RECORDS SUMMARY | 2023-04-03 14:24 | XMS REPORT | Continuity of Care Document ---
:1950 Author Organization [facility] t Address [address] [facility] [address] [place] [address] Care Team Providers Name Role Phone RADHA DE JESUS Primary Care Physician Unavailable LILLIE, MAN CORTÉS Attending Clinician Unavailable JEANETTE VARELA Attending Clinician Unavailable JOHANN ALMAZAN Attending Clinician Unavailable Barbara GUY, Tamar Dhillon Attending Clinician LillieMan garcia Attending Clinician Shawn Ritchie MD Attending Clinician [phone] Balaji Jo MD Attending Clinician Mike GUY, Shane Escobar Attending Clinician [phone] Jose Altman RN Attending Clinician Unavailable Dariela GUY, Jeremy Witt Attending Clinician Genevieve GUY, [place] Howell Attending Clinician Wendy Montalvo MD Attending Clinician Roula Javed Attending Clinician Kika Villarreal MA Attending Clinician Unavailable Provider, Unknown Attending Clinician Unavailable Lyubov Claros MA Attending Clinician Unavailable ALEXYS CHRISTINA Attending Clinician Unavailable Doctor Unassigned, [place] Attending Clinician Unavailable Mario Whitaker NP Attending Clinician MARIO WHITAKER Attending Clinician Unavailable MARIE ARREDONDO Attending Clinician Unavailable Venus Orr MD Attending Clinician Jordon Tejeda MD Attending Clinician Marie Arredondo MD Attending Clinician JESSICA THOMASON Attending Clinician Unavailable Ponce GUY, Jacques Roman Attending Clinician Meek Haynes MD Attending Clinician DEZ PATEL Attending Clinician Unavailable BELKYS SMILEY Attending Clinician Unavailable KAISER Attending Clinician Unavailable VALENTINE_HECTOR Attending Clinician Unavailable Brendon Steven Attending Clinician [phone] [place] Young Attending Clinician [phone] JENNIFER WELCH Attending Clinician Unavailable MINERVA YEAGER Attending Clinician Unavailable JEANETTE VARELA Attending Clinician Unavailable IRVIN Attending Clinician Unavailable Funmi Mcqueen Attending Clinician [phone] ART GONZALES Attending Clinician Unavailable JESSICA KNOTT Attending Clinician Unavailable MAR BUSBY Attending Clinician Unavailable AMN MOREIRA Admitting Clinician Unavailable BALAJI JO Admitting Clinician Unavailable VENICE VALLEJO Admitting Clinician Unavailable MARIE ARREDONDO Admitting Clinician Unavailable JORDON TEJEDA Admitting Clinician Unavailable JEANETTE VARELA Admitting Clinician Unavailable KAISER Admitting Clinician Unavailable AMENA Admitting Clinician Unavailable IRVIN Admitting Clinician Unavailable MAR BUSBY Admitting Clinician Unavailable Payers Payer Name Policy Type Policy Number Effective Date Expiration Date S gunnar MEDICARE A B [id number] 2014 00:00:00 GENERIC MEDICARE [id number] 2017 SUPPLEMENT 00:00:00 MEDICARE B-[place]: [id number] 2014 [employer] 00:00:00 CIGNA SUPPLEMENTAL - [id number] 2014 ROMAN[facility]FP 00:00:00 LIFE INSURANCE (MEDICARE SUPPLEMENT) MEDICARE A-[place]: [id number] 2014 [employer] - 00:00:00 [facility] Problems Condition Condition Condition Status Onset Resolution Last Treating Co mments Source Name Details Category Date Date Treatment Clinician Date 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 Added automatic ally from request for surgery [id number] Cervical Cervical Disease Active Overview: Me thodi stenosis stenosis 2-[address] of spinal of spinal 00:00: g of this H ospita canal canal 00 note l might be different from the original. Added automatic ally from request for surgery [id number] Bladder Bladder Disease Active 2021-06 Univers wall wall 2-06 [place]y [place] [facility] Vaginal Vaginal Disease Active 2021-06 Univers discharge discharge 2-06 ity of 00:00: [place] [address] [place] [address] Branch ESRD (end ESRD (end Disease Recurre 2021-[address] stage stage nce 1-29 [facility] renal renal 00:00: Medical disease) disease) 00 Center on on dialysis dialysis Diabetes Diabetes Disease Recurre 2021-[address] [facility] type 2, type 2, nce 1- [facility] controlled controlled 00:00: Me dical 00 Center Acute Acute Disease Active 2021-[address] [facility] upper GI upper GI -29 [facility] bleed bleed 00:00: Medical 00 Center Primary Primary Disease Active 2021-[address] hypertensi hypertensi - Pema kes on on 00:00: Medical 00 Center Hyperlipid Hyperlipid Disease Active 2021-[address] emia emia 1- [facility] 00 Center SOB SOB Disease Active 2021-[address] (shortness (shortness 1- Pema kes of breath) of breath) 00:00: Me dical 00 Center Rectal Rectal Disease Active 2021-[address] bleeding bleeding 07-26 [facility] 00[facility] 00 [place] Chronic Chronic Disease Active Univers diastolic diastolic 9 ity of heart heart 00:00: [place] failure failure [address] [facility] Chronic Chronic Disease Active Univers pain pain 01-28 ity of 00:00: [address] Branch BMI BMI Disease Active Univers 25.0-25.9, 25.0-25.9, 8- it y of adult adult 00:00: [address] Candidal Candidal Disease Active Unive rs intertrigo intertrigo 01-27 it y of 00:00: [address] Branch BMI BMI Disease Active Univers 25.0-25.9, 25.0-25.9, 8 it y of adult adult 00:00: [address] Chronic Chronic Disease Active Univers hypertensi hypertensi 01-27 it y of on on 00:00: [address] Controlled Controlled Disease Active U nivers type 2 type 2 8 ity of diabetes diabetes 00:00: [place] mellitus mellitus 00 Medica l with with Branch diabetic diabetic nephropath nephropath y, with y, with long-term long-term current current use of use of insulin insulin Type 2 Type 2 Problem Active [place] diabetes Diabetes 5 Medica l mellitus Mellitus 00:00: Group without without 00 complicati Complicati on on Obstructiv Obstructiv Problem Active S [place] [facility] sleep e Sleep 10-29 Medical apnea Apnea 00:00: Group syndrome Syndrome 00 Essential Essential Problem Active Alexis moser hypertensi Hypertensi 5 Me dical on on 00:00: Group 00 End stage End Stage Problem Active Alexis moser renal Renal 10-29 Medical failure on Failure on 00:00: Gr oup dialysis Dialysis 00 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 Added automatic ally from request for surgery [id number] Hyperlipid Hyperlipid Problem Active S vijay emia emia 02-22 Medical 00:00: Group 00 Malignant Malignant Problem Active Alexis moser neoplasm Neoplasm 12-18 Medica l of skin of Skin 00:00: Group 00 Diabetes Diabetes Problem Active [facility] mellitus Mellitus 12-18 Medica l 00:00: Group 00 Anemia Anemia Problem Active [facility] 12-18 Medical 00:00: Group 00 Allergic Allergic Problem Active [facility] rhinitis Rhinitis 12-18 Medica l 00:00: Group 00 Chronic Chronic Problem Active [place] renal Renal 12-18 Medical failure Failure 00:00: Group 00 Dialysis Dialysis Problem Active [address] care Care 12-18 Medical 00:00: Group 00 Dialysis Dialysis Disease Active Unive rs patient patient 09-04 ity of 00:00: [address] CKD stage CKD stage Disease Active Met hodi 4 due to 4 due to 12-16 type 2 type 2 00:00: Hospita diabetes diabetes 00 l mellitus mellitus Elevated Elevated Disease Active Metho di antibody antibody 12-16 levels levels 00:00: Hospita 00 l Hypertensi Hypertensi Disease Active M ethodi on on 08-11 00:00: Hospita 00 l DM2 DM2 Disease Active Methodi (diabetes (diabetes 08-11 mellitus, mellitus, 00:00: Hosp uvaldo type 2) type 2) 00 l Bruit Bruit Problem Active 2016-04-10 Memor ia Active 04:16:47 l Problem [place] 04/10/2016 Chan Dorman MD, PA Dyspnea, Dyspnea, Diagnosis Active 2016-04-10 Memoria unspecifie unspecifie 04:16:47 l d d Active [place] Diagnosis 04/10/2016 Chan Dorman MD, PA Abnormal Abnormal Problem Active 2016-04-10 Memoria ECG ECG Active 04:16:47 l Problem [place] 04/10/2016 Chan Dorman MD, PA Shortness Shortness Diagnosis Active 2016-04-10 Memoria of breath of breath 04:16:47 l Active [place] Diagnosis 04/10/2016 Chan Dorman MD, PA Screening Screening Diagnosis Active 2016-04-10 Memoria for for 04:16:47 l cardiovasc cardiovasc He ann ular ular disorders disorders Active Diagnosis 04/10/2016 Chan Dorman MD, PA Hypertensi Hypertens Problem Active 2016-04-10 Memoria ve heart ingrid heart 04:16:47 l disease disease [place] without without heart heart failure failure Active Problem 04/10/2016 Chan Dorman MD, PA Pure Pure Diagnosis Active 2016-04-10 Mem oria hyperchole hyperchole 04:16:47 l sterolemia sterolemia He rmann Active Diagnosis 04/10/2016 Chan Dorman MD, PA Peripheral Periphera Diagnosis Active 2016-04-10 Memoria vascular l vascular 04:16:47 l disease, disease, Paolo n unspecifie unspecifie d d Active Diagnosis 04/10/2016 Chan Dorman MD, PA Allergies, Adverse Reactions, Alerts Allergy Allergy Status Severity Reaction(s) Onset Inactive Treating Comm ents Source Name Type Date Date Clinician Latex Drug Active Itching 2021-[address] [facility] Allergy 07-19 [facility] 00:[facility]: Medical 00 Center Latex, Drug Active 2021-[address] Natural Allergy 07-19 [facility] Rubber 00:00: Medical 00 Center Morphine Drug Active Itching, 2021-[address] [facility] Allergy Nausea Only 07-19 Luke s 00:00: Medical 00 [place] Ondanset Drug Active Itching 2021-[address] donell Hcl Allergy 07-19 [facility] 00:00: Medical 00 [place] LATEX Allergy Active Itching 2021-06 [facility] 07-19 00:00: 00 LATEX, Allergy Active 2021-06 [facility] NATURAL 07-19 RUBBER 00:00: 00 MORPHINE Allergy Active Itching 2021-06 [facility] 07-19 00:00: 00 ONDANSET Allergy Active Itching 2021-06 [facility] DONELL HCL 1-21 00:00: 00 Latex Propensi Active Rash 2020-06 Methodi ty to 07-10 st adverse 00:00: Hospita reaction 00 l s to drug Morphine Propensi Active Itching 2020-06 Metho di ty to 07-10 st adverse 00:00: Hospita reaction 00 l s to drug Ondanset Propensi Active Rash 2020-06 Method i donell Hcl ty to 07-10 st adverse 00:00: Hospita reaction 00 l s to drug Clarithr Drug Active Unknown - Unive rs omycin Allergy See comments 2-10 ity of 00:00: [place] 00 Medical Branch CLARITHR DRUG Active High Unknown-Cmnt Un zenon OMYCIN INGREDI 2-10 ity of 00:00: [place] 00 Medical Branch LATEX DRUG Active Low ITCHING 2018-0 Univers INGREDI 8-16 ity of 00:00: [place] 00 Medical Branch Latex Propensi Active Rash 2019-0 RashRash Univer s ty to 8-16 ity of adverse 00:00: [place] reaction 00 Medical s Branch Ondanset Propensi Active Rash 2019-0 Univer s donell Hcl ty to 8-16 ity of (Pf) adverse 00:00: [place] reaction 00 Medical s Branch ONDANSET DRUG Active Med Rash 2019-0 Univers DONELL HCL 8-16 ity of (PF) 00:00: [place] 00 Medical Branch Morphine Drug Active Rash 2019-0 Univers Allergy 8-09 ity of 00:00: [place] 00 Medical Branch MORPHINE DRUG Active Med Hives 2019-0 Univers INGREDI 8-09 ity of 00:00: [place] 00 Medical Branch Chloramp Propensi Active Anaphylaxis 2017-06 "closed Methodi henicol ty to 0-[address] adverse 00:00: throat, Hospita reaction 00 terrible l s to rash" drug Penicill Propensi Active Other (See 2017-06 "closed M ethodi ins ty to Comments) 0-[address] adverse 00:00: throat, Hospita reaction 00 terrible l s to rash" drug CHLORAMP Allergy Active High Anaphylaxis 2017-06 [facility] HENICOL 0-05 SOD 00:00: SUCCINAT 00 E PENICILL Allergy Active High Anaphylaxis 2017-06 [facility] INS 0-05 00:00: 00 ADHESIVE Allergy Active Low Rash 2017-06 [facility] TAPE 0-05 00:00: 00 Adhesive Propensi Active Rash 2017-[address] [facility] Tape ty to 0-05 [facility] adverse 00:00: Medical reaction 00 Center s Chloramp Propensi Active Anaphylaxis 2017-[address] henicol ty to 0-05 [facility] Sod adverse 00:00: Medical Succinat reaction 00 Center e s Penicill Propensi Active Anaphylaxis 2017-[address] ins ty to 0-05 [facility] adverse 00:00: Medical reaction 00 Center s Adhesive Propensi Active Rash 2017-06 Univer s Tape-Abimbola ty to 0-05 ity of icones adverse 00:00: [place] reaction 00 Medical s Branch ADHESIVE DRUG Active Low Rash 2017-06 Univers TAPE-ABIMBOLA 0-05 ity of ICONES 00:00: [place] 00 Medical Branch Penicill Drug Active Other - See "closed Un zenon ins Allergy comments 2-23 my ity of 00:00: throat, [place] 00 terrible Medical rash""ean Branch sed my throat, terrible rash" Chloramp Propensi Active Rash 2018 Univer s henicol ty to 2-23 ity of Sod adverse 00:00: [place] Succinat reaction 00 Medica l e s Branch Penicill Propensi Active Swelling Univ ers ins ty to 2-23 ity of adverse 00:00: [place] reaction 00 Medical s Branch CHLORAMP DRUG Active High Swelling Univer s HENICOL 2-23 ity of SOD 00:00: [place] SUCCINAT 00 Medical E Branch PENICILL Drug Active High Swelling Univer s INS Class 2-23 ity of 00:00: [place] 00 Medical Branch penicill penicill Active Info Not Sebastian dutch in in Available 8-19 l 00:00: [place] 00 CHLOROMY Allergy Active [place] CETIN to Medical substanc Group e Latex Allergy Active [facility] to Medical substanc Group e Morphine Allergy Active [facility] to Medical substanc Group e PENICILL Allergy Active Rash [facility] IN to Medical substanc Group e PENICILL Allergy Active [facility] INS to Medical substanc Group e Zofran Allergy Active [facility] to Medical substanc Group e Family History Family Member Diagnosis Comments Start Date Stop Date Source Natural father Cancer [facility] Natural mother Cancer [facility] mother Diabetes [facility] Natural mother Heart disease [facility] Natural mother Hypertension [facility] Natural sister Cancer [facility] Social History Social Habit Start Date Stop Date Quantity Comments Source History SDTN [facility] Sexual orientation [facility] Alcohol intake 2023-03-12 2023-03-12 Ex-drinker [facility] 00:00:00 00:00:00 (finding) Hospital History of Social 2023-03-12 2023-03-[address] function 00:00:00 00:00:00 Hospital Exposure to 2022-05-24 2022-06-03 Not sure University of SARS-CoV-2 (event) 00:00:00 08:53:00 [place] [facility] History SDOH 2022-05-27 2022-05-[address] [facility] Transport Med 00:00:00 00:00:[address] [facility] 2022-05-27 2022-05-[address] [facility] Housing Unable to 00:00:00 00:00:00 Medical Center Pay History [facility] 2022-05-27 2022-05-[address] [facility] Places 00:00:00 00:00:00 Medical Ce nter Lived History [facility] 2022-05-27 2022-05-[address] [facility] Homeless 00:00:00 00:00:00 Medical Center Last Year Tobacco use and 2022-03-20 2022-03-20 Smokeless [facility] exposure 00:00:00 00:00:00 tobacco non-user Hospital TobaccoUse: 2016-02-15 2016-02-15 [facility] 00:00:00 00:00:00 Sex Assigned At [address] P[facility]es 00:00:00 00:00:00 Medical Center Smoking Status Start Date Stop Date Source Unknown if ever smoked [facility] Never smoked tobacco [facility] Medications Ordered Filled Start Stop Current Ordering Indication Dosage Frequency Signature Comments Components Source Medication Medication Date Date Medication? Clinician (SIG) Name Name glimepiride Yes 4mg Q.5D Take [address] (AMARYL) 2 8-01 tablets (4 Lily es MG tablet 14:25: mg total) Med ical 05 by mouth 2 Center (two) times daily. carvedilol Yes 25mg Take 1 [facility]I [facility] t (COREG) 25 8-01 tablet (25 Lily es MG tablet 14:25: mg total) Med ical 05 by mouth 2 Center (two) times daily as needed. hydrALAZINE 2022-0 Yes 50mg Q.[id number] Take 0.[address] (APRESOLINE 01-27 [id number] tablets [facility] ) 100 MG 14:25: 3D (50 mg Medical tablet 05 total) by Center mouth 3 (three) times daily. atorvastati 2022-0 Yes 20mg QD Take [address] n (LIPITOR) 01-27 tablet (20 Pema kes 20 MG 14:25: mg total) Medical tablet 05 by mouth Center daily. iron 2022-0 Yes QD Take by [facility] fum,ps/foli 01-27 mouth [facility] c/Bcomp,C 14:25: daily. Medica l no.9 05 Center (INTEGRA PLUS ORAL) VITAMIN A 2022-0 Yes QD Take by CHI S t ORAL 01-27 mouth [facility] 14:25: daily. Medical 05 Center ketorolac 2022-0 Yes 1[drp] Q.5D Place [address] (ACULAR) 01-27 drop into [facility] 0.4 % Drop 14:25: both eyes Me dical 05 2 (two) Center times daily. brimonidine 2022-0 Yes 1[drp] Q.5D Place [address] (ALPHAGAN) 01-27 drop into Luke s 0.2 % 14:25: both eyes Medical ophthalmic 05 2 (two) Center solution times daily. losartan 2022-0 Yes 50mg QD Take [address] (COZAAR) 50 01-27 tablet (50 Pema kes MG tablet 14:25: mg total) Med ical 05 by mouth Center daily. ferric 2022-0 Yes Q.[id number] Take by I St citrate 01-27 [id number] mouth 3 Lily es (AURYXIA 14:25: 3D (three) Medica l ORAL) 05 times Center daily. amLODIPine 2022-0 Yes 10mg Take 1 [facility] t (NORVASC) 01-27 tablet (10 Luke s 10 MG 14:25: mg total) Medical tablet 05 by mouth Center as needed. isosorbide 2022-0 Yes 30mg QD Take 1 [facility] t mononitrate 01-27 tablet (30 Pema kes (IMDUR) 30 14:25: mg total) Me dical MG 24 hr 05 by mouth Center tablet daily. pioglitazon 0 Yes 15mg QD Take [address] e (ACTOS) 01-27 tablet (15 Luke s 15 MG 14:25: mg total) Medical tablet 05 by mouth Center daily. HYDROcodone 0 Yes 1{tbl} Take [address] -acetaminop 01-27 tablet by Lily felecia bourne (NORCO 14:25: mouth Medica l 5-325) 05 every 6 Center 5-325 mg (six) per tablet hours as needed for Pain. pregabalin 0 Yes 25mg Q.5D Take 1 [facility] t (LYRICA) 25 01-27 capsule [facility]ukes MG capsule 14:25: (25 mg Medic al 05 total) by Center mouth 2 (two) times daily. TiZANidine 0 Yes 2mg Q.[id number] Take [address] (ZANAFLEX) 01-27 [id number] capsule (2 [facility] 2 MG 14:25: 3D mg total) Medical capsule 05 by mouth 3 Center (three) times daily. epoetin Yes Inject as [facility] t bella 01-27 directed. [facility]ukes (EPOGEN 14:25: Medical INJ) 05 [place] montelukast Yes 10mg QD Take [address] (SINGULAIR) 01-27 tablet (10 Pema kes 10 mg 14:25: mg total) Medical tablet 05 by mouth Center nightly. albuterol 0 Yes Inhale by [facility] sulfate 01-27 mouth via [facility] (VENTOLIN 14:25: inhaler. Medi wilfredo HFA INHL) 05 [place] budesonide/ 0 Yes Inhale by C [facility] formoterol 01-27 mouth via Luke s fumarate 14:25: inhaler. Medic al (SYMBICORT 05 [place] INH) azelastine 2022-0 Yes 1{spray Q.5D [address] (ASTELIN) 01-27 } Nasal [facility] 137 mcg 14:25: route 2 Medical (0.1 %) 05 (two) Center nasal spray times daily Use in each nostril as directed . benzonatate 2023-0 Yes 100mg Take [address] [facility] (TESSALON) 01-27 capsule [facility] 100 MG 14:25: (100 mg Medical capsule 05 total) by Center mouth 3 (three) times daily as needed for Cough. promethazin 2022-0 Yes 25mg Take [address] [facility] [facility] e - tablet (25 [facility]ukes (PHENERGAN) 14:25: mg total) M edical 25 MG 05 by mouth Center tablet every 6 (six) hours as needed for Nausea. ergocalcife 2022-0 Yes Take by [facility] rol, 01-27 mouth. [facility] vitamin D2, 14:25: Medica l (VITAMIN D2 05 Center ORAL) fluticasone 2022-0 Yes 1{puff} Q.5D Inhale [address] propion-wayne 01-27 puff by [facility]ukes meteroL 14:25: mouth via Medic al (ADVAIR) 05 inhaler 2 Center 250-50 (two) mcg/dose times diskus daily. inhaler insulin 2022-0 Yes 8U QD Inject [address] glargine 01-27 Units [facility]ukes (LANTUS, 14:25: subcutaneo Med ical SEMGLEE) 05 usly Center 100 unit/mL nightly. (3 mL) InPn glimepiride 2022-0 Yes 4mg Q.5D Take [address] (AMARYL) 2 - tablets (4 Lily es MG tablet 14:25: mg total) Med ical 05 by mouth 2 Center (two) times daily. carvedilol 2022-0 Yes 25mg Take 1 [facility] t (COREG) 25 - tablet (25 Lily es MG tablet 14:25: mg total) Med ical 05 by mouth 2 Center (two) times daily as needed. hydrALAZINE 2022-0 Yes 50mg Q.[id number] Take 0.[address] (APRESOLINE 01-27 [id number] tablets [facility] ) 100 MG 14:25: 3D (50 mg Medical tablet 05 total) by Center mouth 3 (three) times daily. atorvastati 2022-0 Yes 20mg QD Take [address] n (LIPITOR) - tablet (20 Pema kes 20 MG 14:25: mg total) Medical tablet 05 by mouth Center daily. iron 3-0 Yes QD Take by [facility] fum,ps/foli 01-27 mouth [facility] c/Bcomp,C 14:25: daily. Medica l no.9 05 Center (INTEGRA PLUS ORAL) VITAMIN A Yes QD Take by [facility]I [facility] t ORAL 01-27 mouth [facility]ukes 14:25: daily. Medical 05 Center ketorolac 0 Yes 1[drp] Q.5D Place [address] (ACULAR) 01-27 drop into [facility]ukes 0.4 % Drop 14:25: both eyes Me dical 05 2 (two) Center times daily. brimonidine 0 Yes 1[drp] Q.5D Place [address] (ALPHAGAN) 01-27 drop into Luke s 0.2 % 14:25: both eyes Medical ophthalmic 05 2 (two) Center solution times daily. losartan 0 Yes 50mg QD Take [address] (COZAAR) 50 01-27 tablet (50 Pema kes MG tablet 14:25: mg total) Med ical 05 by mouth Center daily. ferric 2022-0 Yes Q.[id number] Take by I St citrate 01-27 [id number] mouth 3 Lily es (AURYXIA 14:25: 3D (three) Medica l ORAL) 05 times Center daily. amLODIPine 0 Yes 10mg Take 1 [facility] (NORVASC) 01-27 tablet (10 Luke s 10 MG 14:25: mg total) Medical tablet 05 by mouth Center as needed. isosorbide 2022-0 Yes 30mg QD Take 1 [facility] mononitrate 01-27 tablet (30 Pema kes (IMDUR) 30 14:25: mg total) Me dical MG 24 hr 05 by mouth Center tablet daily. pioglitazon 0 Yes 15mg QD Take [address] e (ACTOS) 01-27 tablet (15 Luke s 15 MG 14:25: mg total) Medical tablet 05 by mouth Center daily. HYDROcodone 2022-0 Yes 1{tbl} Take [address] -acetaminop 01-27 tablet by Lily es hen (NORCO 14:25: mouth Medica l 5-325) 05 every 6 Center 5-325 mg (six) per tablet hours as needed for Pain. pregabalin 2022-0 Yes 25mg Q.5D Take 1 [facility] (LYRICA) 25 01-27 capsule [facility]ukes MG capsule 14:25: (25 mg Medic al 05 total) by Center mouth 2 (two) times daily. TiZANidine 2022-0 Yes 2mg Q.[id number] Take [address] (ZANAFLEX) 01-27 [id number] capsule (2 [facility] 2 MG 14:25: 3D mg total) Medical capsule 05 by mouth 3 Center (three) times daily. epoetin 2022-0 Yes Inject as [facility] t bella 01-27 directed. [facility] (EPOGEN 14:25: Medical INJ) 05 [place] montelukast 0 Yes 10mg QD Take [address] (SINGULAIR) 01-27 tablet (10 Pema kes 10 mg 14:25: mg total) Medical tablet 05 by mouth Center nightly. albuterol 0 Yes Inhale by [facility] sulfate 01-27 mouth via [facility]ukes (VENTOLIN 14:25: inhaler. Medi wilfredo HFA INHL) 05 [place] budesonide/ Yes Inhale by C [facility] formoterol 01-27 mouth via Luke s fumarate 14:25: inhaler. Medic al (SYMBICORT 05 Center INHL) azelastine 0 Yes 1{spray Q.5D 1 spray by [facility] (ASTELIN) 01-27 } Nasal [facility]ukes 137 mcg 14:25: route 2 Medical (0.1 %) 05 (two) Center nasal spray times daily Use in each nostril as directed . benzonatate 2022-0 Yes 100mg Take [address] (TESSALON) 01-27 capsule [facility] 100 MG 14:25: (100 mg Medical capsule 05 total) by Center mouth 3 (three) times daily as needed for Cough. promethazin 2022-0 Yes 25mg Take [address] e 01-27 tablet (25 [facility] (PHENERGAN) 14:25: mg total) M edical 25 MG 05 by mouth Center tablet every 6 (six) hours as needed for Nausea. ergocalcife 2022-0 Yes Take by [facility] rol, 01-27 mouth. [facility] vitamin D2, 14:25: Medica l (VITAMIN D2 05 Center ORAL) fluticasone 2022-0 Yes 1{puff} Q.5D Inhale [address] propion-wayne 01-27 puff by [facility]ukes meteroL 14:25: mouth via Medic al (ADVAIR) 05 inhaler 2 Center 250-50 (two) mcg/dose times diskus daily. inhaler insulin Yes 8U QD Inject 8 CHI glargine 01-27 Units [facility] (LANTUS, 14:25: subcutaneo Med ical SEMGLEE) 05 usly Center 100 unit/mL nightly. (3 mL) InPn folic 2022- No Take by [facility] St acid/vit B 01-27 mouth. [facility] complex and 07:32: 00:00 Medic al C 40 :00 Center (DIALYVITE 800 ORAL) folic 2022- No Take by [facility] St acid/vit B 01-27 mouth. [facility] complex and 07:32: 00:00 Medic al C 40 :00 Center (DIALYVITE 800 ORAL) atorvastati Yes 20mg QD Take 1 Meth doroteo n (LIPITOR) 6-08 tablet (20 st 20 MG 11:13: mg total) Hospita tablet 39 by mouth l nightly. Default OP ins cholecalcif Yes 5000U QD Take 1 Met hodi aric, 6-[address] vitamin D3, 11:13: (5,000 Hosp uvaldo 125 mcg 39 Units l (5,000 total) by unit) mouth tablet daily. keTOROlac Yes 1[drp] Q.5D Administer Methodi (ACULAR LS) 6-[address] 0.4 % 11:13: both eyes Hospita ophthalmic 39 2 (two) l solution times a day. brimonidine Yes 1[drp] Q.5D Administer [facility]i (ALPHAGAN) 6-[address] 0.2 % 11:13: both eyes Hospita ophthalmic 39 2 (two) l solution times a day. HYDROcodone Yes 1{tbl} Q.5D Take 1 M ethodi -acetaminop 6-[address] hen (NORCO) 11:13: mouth 2 Hos ember 5-325 mg 39 (two) l per tablet times a day as needed for moderate pain .acute pain. epoetin 2023-0 Yes Q7D Inject as Metho di bella 6-[address] (EPOGEN 11:13: once a Hospita INJ) 39 week. l hydrALAZINE 3-0 Yes 25mg QD Take 1 Meth doroteo (APRESOLINE 6-08 tablet (25 st ) 25 MG 11:13: mg total) Hospi ta tablet 39 by mouth l every evening. ascorbic 2023-0 Yes 1000mg Take 1 Metho di acid, 6-[address] vitamin C, 11:13: (1,000 mg Ho spita (VITAMIN C) 39 total) by l 1000 MG mouth. tablet ferric 2022-0 Yes Take by [facility] citrate 6-[address] (AURYXIA 11:13: cap 3 x a Hosp uvaldo ORAL) 39 day with l meals folic 2022-0 Yes Take by [facility] acid/vit B 6-[address] complex and 11:13: daily Hospi ta C 39 l (DIALYVITE 800 ORAL) UNABLE TO 2022-0 Yes Raw Methodi FIND 6-[address] 11:13: daily Hospita 39 l promethazin 3-0 Yes 25mg Q6H Take 1 Meth doroteo e 6-08 tablet (25 st (PHENERGAN) 11:13: mg total) H ospita 25 MG 39 by mouth l tablet every 6 (six) hours as needed for nausea or vomiting. famotidine 2022-0 Yes 20mg QD Take 0.5 Met hodi (PEPCID) 40 6-[address] MG tablet 11:13: (20 mg Hospit a 39 total) by l mouth daily. glimepiride 3-0 Yes 4mg QD Take 1 Meth doroteo (AMARYL) 4 6-08 tablet (4 st MG tablet 11:13: mg total) Hos ember 39 by mouth l daily before breakfast. docusate 3-0 Yes 100mg Q.5D Take 1 Method i sodium 6-[address] (COLACE) 11:13: (100 mg Hospit a 100 MG 39 total) by l capsule mouth 2 (two) times a day. fluticasone 3-0 Yes 1{puff} Q.5D Inhale 1 [facility]i propion-wayne 6-[address] meteroL 11:13: (two) Hospita (ADVAIR/ 39 times a l WIXELA day. INHUB) 250-50 mcg/dose DISKUS insulin Yes Inject Methodi glargine,hu 12-04 under the [facility].rec.anlog 11:13: skin. Hospi ta (BASAGLAR 39 l KWIKPEN U-100 INSULIN SUBQ) carvedilol 0 Yes 25mg Q.5D Take 1 Metho di (COREG) 25 -08 tablet (25 st MG tablet 11:13: mg total) Hos ember 39 by mouth 2 l (two) times a day with meals. atorvastati 0 Yes 20mg QD Take 1 Meth doroteo n (LIPITOR) 6-08 tablet (20 st 20 MG 11:13: mg total) Hospita tablet 39 by mouth l nightly. Default OP ins cholecalcif Yes 5000U QD Take 1 Met hodi aric, [address] vitamin D3, 11:13: (5,000 Hosp uvaldo 125 mcg 39 Units l (5,000 total) by unit) mouth tablet daily. keTOROlac 0 Yes 1[drp] Q.5D Administer [facility] (ACULAR LS) 12-[address] 0.4 % 11:13: both eyes Hospita ophthalmic 39 2 (two) l solution times a day. brimonidine 0 Yes 1[drp] Q.5D Administer Methodi (ALPHAGAN) -[address] 0.2 % 11:13: both eyes Hospita ophthalmic 39 2 (two) l solution times a day. [place]DRO[place] [id number] 1{tbl} Q.5D Take 1 M ethodi -acetaminop -[address] hen (NORCO) 11:13: mouth 2 Hos ember 5-325 mg 39 (two) l per tablet times a day as needed for moderate pain .acute pain. epoetin 0 Yes Q7D Inject as Metho di bella - directed st (EPOGEN 11:13: once a Hospita INJ) 39 week. l hydrALAZINE 0 Yes 25mg QD Take 1 Meth doroteo (APRESOLINE 6-08 tablet (25 st ) 25 MG 11:13: mg total) Hospi ta tablet 39 by mouth l every evening. ascorbic 2022-0 Yes 1000mg Take 1 Metho di acid, 6-[address] vitamin C, 11:13: (1,000 mg Ho spita (VITAMIN C) 39 total) by l 1000 MG mouth. tablet ferric 0 Yes Take by Methodi citrate 6-[address] (AURYXIA 11:13: cap 3 x a Hosp uvaldo ORAL) 39 day with l meals folic 2022-0 Yes Take by [facility] acid/vit B 6-[address] complex and 11:13: daily Hospi ta C 39 l (DIALYVITE 800 ORAL) UNABLE TO 2022-0 Yes Raw Methodi FIND 6-[address] 11:13: daily Hospita 39 l promethazin 0 Yes 25mg Q6H Take 1 Meth doroteo e 6-08 tablet (25 st (PHENERGAN) 11:13: mg total) H ospita 25 MG 39 by mouth l tablet every 6 (six) hours as needed for nausea or vomiting. famotidine 0 Yes 20mg QD Take 0.5 Met hodi (PEPCID) 40 6-[address] MG tablet 11:13: (20 mg Hospit a 39 total) by l mouth daily. glimepiride 0 Yes 4mg QD Take 1 Meth doroteo (AMARYL) 4 6-08 tablet (4 st MG tablet 11:13: mg total) Hos ember 39 by mouth l daily before breakfast. docusate 2022-0 Yes 100mg Q.5D Take 1 Method i sodium 6-[address] (COLACE) 11:13: (100 mg Hospit a 100 MG 39 total) by l capsule mouth 2 (two) times a day. fluticasone 0 Yes 1{puff} Q.5D Inhale 1 Methodi propion-wayne 6-[address] meteroL 11:13: (two) Hospita (ADVAIR/ 39 times a l WIXELA day. INHUB) 250-50 mcg/dose DISKUS insulin 0 Yes Inject [facility]hu [facility] skin[facility] ta (BASAGLAR 39 l KWIKPEN U-100 INSULIN SUBQ) carvedilol 2022-0 Yes 25mg Q.5D Take 1 Metho di (COREG) 25 -08 tablet (25 st MG tablet 11:13: mg total) Hos ember 39 by mouth 2 l (two) times a day with meals. atorvastati 2022-0 Yes 20mg QD Take 1 Meth doroteo n (LIPITOR) 6-08 tablet (20 st 20 MG 11:13: mg total) Hospita tablet 39 by mouth l nightly. Default OP ins cholecalcif 2022-0 Yes 5000U QD Take 1 Met hodi aric, [address] vitamin D3, 11:13: (5,000 Hosp uvaldo 125 mcg 39 Units l (5,000 total) by unit) mouth tablet daily. keTOROlac 2022-0 Yes 1[drp] Q.5D Administer Method[facility] (ACULAR LS) 12-[address] 0.4 % 11:13: both eyes Hospita ophthalmic 39 2 (two) l solution times a day. brimonidine 2022-0 Yes 1[drp] Q.5D Administer Methodi (ALPHAGAN) 12-[address] 0.2 % 11:13: both eyes Hospita ophthalmic 39 2 (two) l solution times a day. HYDROcodone 2022-0 Yes [id number] 1{tbl} Q.5D Take 1 M ethodi -acetaminop -[address] hen (NORCO) 11:13: mouth 2 Hos ember 5-325 mg 39 (two) l per tablet times a day as needed for moderate pain .acute pain. epoetin 2022-0 Yes Q7D Inject as Metho di bella 12-[address] (EPOGEN 11:13: once a Hospita INJ) 39 week. l hydrALAZINE 2022-0 Yes 25mg QD Take 1 Meth doroteo (APRESOLINE -08 tablet (25 st ) 25 MG 11:13: mg total) Hospi ta tablet 39 by mouth l every evening. ascorbic 2022-0 Yes 1000mg Take 1 Metho di acid, 6-[address] vitamin C, 11:13: (1,000 mg Ho spita (VITAMIN C) 39 total) by l 1000 MG mouth. tablet ferric 2022-0 Yes Take by [facility] citrate -[address] (AURYXIA 11:13: cap 3 x a Hosp uvaldo ORAL) 39 day with l meals folic Yes Take by [facility] acid/vit B 6-[address] complex and 11:13: daily Hospi ta C 39 l (DIALYVITE 800 ORAL) UNABLE TO 0 Yes Raw Methodi FIND 6-[address] 11:13: daily Hospita 39 l promethazin 0 Yes 25mg Q6H Take 1 Meth doroteo e 6-08 tablet (25 st (PHENERGAN) 11:13: mg total) H ospita 25 MG 39 by mouth l tablet every 6 (six) hours as needed for nausea or vomiting. famotidine Yes 20mg QD Take 0.5 Met hodi (PEPCID) 40 6-[address] MG tablet 11:13: (20 mg Hospit a 39 total) by l mouth daily. glimepiride 0 Yes 4mg QD Take 1 Meth doroteo (AMARYL) 4 -08 tablet (4 st MG tablet 11:13: mg total) Hos ember 39 by mouth l daily before breakfast. docusate 0 Yes 100mg Q.5D Take 1 Method i sodium 12-[address] (COLACE) 11:13: (100 mg Hospit a 100 MG 39 total) by l capsule mouth 2 (two) times a day. fluticasone Yes 1{puff} Q.5D Inhale 1 [facility] propion-wayne [address] meteroL 11:13: (two) Hospita (ADVAIR/ 39 times a l WIXELA day. INHUB) 250-50 mcg/dose DISKUS insulin Yes Inject [facility],hu [facility] skin. Hospi ta (BASAGLAR 39 l KWIKPEN U-100 INSULIN SUBQ) carvedilol 0 Yes 25mg Q.5D Take 1 Metho di (COREG) 25 -08 tablet (25 st MG tablet 11:13: mg total) Hos ember 39 by mouth 2 l (two) times a day with meals. aspirin 2022-0 2022- No 81mg QD Take 1 Methodi (ECOTRIN) 12-04 06-08 tablet (81 st 81 MG 06:54: 00:00 mg total) Hospit a enteric 36 :00 by mouth l coated nightly. tablet aspirin 2022-0 2022- No 81mg QD Take 1 [facility] (ECOTRIN) 12-04-08 tablet (81 st 81 MG 06:54: 00:00 mg total) Hospit a enteric 36 :00 by mouth l coated nightly. tablet aspirin 2022-0 2022- No 81mg QD Take 1 Methodi (ECOTRIN) 12-04-08 tablet (81 st 81 MG 06:54: 00:00 mg total) Hospit a enteric 36 :00 by mouth l coated nightly. tablet mesalamine 2022-0 2022- No 1.2g Q.5D Take 1 Meth doroteo (LIALDA) 24 05-[address] 1.2 gram EC 09:21: 00:00 (1.2 g Hos ember tablet 21 :00 total) by l mouth 2 (two) times a day. mesalamine 2022-0 2022- No 1.2g Q.5D Take 1 Meth doroteo (LIALDA) 11-19-[address] 1.2 gram EC 09:21: 00:00 (1.2 g Hos ember tablet 21 :00 total) by l mouth 2 (two) times a day. mesalamine 2022-0 2022- No 1.2g Q.5D Take 1 Meth doroteo (LIALDA) 24 05-[address] 1.2 gram EC 09:21: 00:00 (1.2 g Hos ember tablet 21 :00 total) by l mouth 2 (two) times a day. glimepiride 2022-0 2022- No 4mg Q.5D Take 2 Met hodi (AMARYL) 2 3-16 03-16 tablets (4 st MG tablet 08:08: 00:00 mg total) Ho spita 56 :00 by mouth 2 l (two) times a day as needed. glimepiride 2022-0 2022- No 4mg Q.5D Take 2 Met hodi (AMARYL) 2 3-16 03-16 tablets (4 st MG tablet 08:08: 00:00 mg total) Ho spita 56 :00 by mouth 2 l (two) times a day as needed. glimepiride 2022- No 4mg Q.5D Take 2 Met hodi (AMARYL) 2 3-16 03-16 tablets (4 st MG tablet 08:08: 00:00 mg total) Ho spita 56 :00 by mouth 2 l (two) times a day as needed. sennosides- 2022- No 2{tbl} Q.5D Take 2 M ethodi docusate 3-16 -[address] sodium 00:00: 04:59 mouth 2 Hospita (Senna with 00 :00 (two) l Docusate times a Sodium) day for 30 8.6-50 mg days. per tablet glimepiride 2022-2022- No .5mg Q.5D Take 0.5 M ethodi (AMARYL) 1 -16 -[address] MG tablet 00:00: 04:59 (0.5 mg Hosp uvaldo 00 :00 total) by l mouth 2 (two) times a day as needed (As prescribed by her PCP) for up to 30 days. sennosides- 2022- No 2{tbl} Q.5D Take 2 M ethodi docusate 3-16 -[address] sodium 00:00: 04:59 mouth 2 Hospita (Senna with 00 :00 (two) l Docusate times a Sodium) day for 30 8.6-50 mg days. per tablet glimepiride 2022-0 2022- No .5mg Q.5D Take 0.5 M ethodi (AMARYL) 1 -16 -[address] MG tablet 00:00: 04:59 (0.5 mg Hosp uvaldo 00 :00 total) by l mouth 2 (two) times a day as needed (As prescribed by her PCP) for up to 30 days. sennosides- 2022- No 2{tbl} Q.5D Take 2 M ethodi docusate 3-16 04-[address] sodium 00:00: 04:59 mouth 2 Hospita (Senna with 00 :00 (two) l Docusate times a Sodium) day for 30 8.6-50 mg days. per tablet glimepiride 2022-0 2022- No .5mg Q.5D Take 0.5 M ethodi (AMARYL) 1 16 -[address] MG tablet 00:00: 04:59 (0.5 mg Hosp uvaldo 00 :00 total) by l mouth 2 (two) times a day as needed (As prescribed by her PCP) for up to 30 days. albuterol 2022- No Methodi (PROAIR 08-12 st HFA) 90 11:41: 00:00 Hospita mcg/actuati 24 :00 l on inhaler albuterol 2022- No Methodi (PROAIR 08-12 st HFA) 90 11:41: 00:00 Hospita mcg/actuati 24 :00 l on inhaler albuterol 2022- No Methodi (PROAIR 08-12 st HFA) 90 11:41: 00:00 Hospita mcg/actuati 24 :00 l on inhaler budesonide- 2022- No Symbicort Methodi formoteroL 08-[address] (SYMBICORT) 11:40: 00:00 mcg-4.5 Ho spita 160-4.5 52 :00 mcg/actuat l mcg/actuati ion HFA on inhaler aerosol inhaler INHALE 2 PUFFS BY MOUTH TWICE DAILY NEEDED budesonide- 2022- No Symbicort Methodi formoteroL 08-[address] (SYMBICORT) 11:40: 00:00 mcg-4.5 Ho spita 160-4.5 52 :00 mcg/actuat l mcg/actuati ion HFA on inhaler aerosol inhaler INHALE 2 PUFFS BY MOUTH TWICE DAILY NEEDED budesonide- 2022- No Symbicort Methodi formoteroL 08-[address] (SYMBICORT) 11:40: 00:00 mcg-4.5 Ho spita 160-4.5 52 :00 mcg/actuat l mcg/actuati ion HFA on inhaler aerosol inhaler INHALE 2 PUFFS BY MOUTH TWICE DAILY NEEDED amLODIPine 2022- No 10mg Q.5D Take 2 Meth doroteo (NORVASC) 5 08-[address] mg tablet 11:28: 00:00 (10 mg Hospi ta 15 :00 total) by l mouth 2 (two) times a day. amLODIPine 2022-0 3- No 10mg Q.5D Take 2 Meth doroteo (NORVASC) 5 2-14 -[address] mg tablet 11:28: 00:00 (10 mg Hospi ta 15 :00 total) by l mouth 2 (two) times a day. amLODIPine 2022-0 2022- No 10mg Q.5D Take 2 Meth doroteo (NORVASC) 5 2-14 -[address] mg tablet 11:28: 00:00 (10 mg Hospi ta 15 :00 total) by l mouth 2 (two) times a day. calcium 2022-0 2023- No 667mg [id number] Take 667 [facility]i acetate -14 -[id number] ([facility]) 11:27: 00:00 3D mouth 3 Hospi ta 667 mg 47 :00 (three) l capsule times a day with meals. calcium 2022-0 2022- No 667mg [id number] Take 667 Methodi acetate -14 -[id number] [facility] 11:27: 00:00 3D mouth 3 Hospi ta 667 mg 47 :00 (three) l capsule times a day with meals. calcium 2022-0 2023- No 667mg [id number] Take 667 Methodi acetate 2-14 -[id number] ([facility]) 11:27: 00:00 3D mouth 3 Hospi ta 667 mg 47 :00 (three) l capsule times a day with meals. nut.tx.comp 2022-0 2022- No 1{can} Q.5D Take 1 Can Methodi . immune -12 08-[address] systm,reg 00:00: 05:59 (two) Hospit a (Impact 00 :00 times a l Advanced day for 5 Recovery) days. 0.1 gram-1.12 kcal/mL liquid nut.tx.comp 2022-0 2022- No 1{can} Q.5D Take 1 Can Methodi . immune -12 08-[address] systm,reg 00:00: 05:59 (two) Hospit a (Impact 00 :00 times a l Advanced day for 5 Recovery) days. 0.1 gram-1.12 kcal/mL liquid nut.tx.comp 2022- No 1{can} Q.5D Take 1 Can Methodi . immune 2-14 02-[address] systm,reg 00:00: 05:59 (two) Hospit a (Impact 00 :00 times a l Advanced day for 5 Recovery) days. 0.1 gram-1.12 kcal/mL liquid hydrALAZINE 2021-06 Yes 50mg Take 1 Meth doroteo (APRESOLINE 2-27 tablet (50 st ) 50 MG 00:00: mg total) Hospi ta tablet 00 by mouth. l hydrALAZINE 2021-06 Yes 50mg Take 1 Meth doroteo (APRESOLINE 2-27 tablet (50 st ) 50 MG 00:00: mg total) Hospi ta tablet 00 by mouth. l hydrALAZINE 2021-06 Yes 50mg Take 1 Meth doroteo (APRESOLINE 2-27 tablet (50 st ) 50 MG 00:00: mg total) Hospi ta tablet 00 by mouth. l albuterol 2021-06 Yes albuterol Uni vers 2.5 mg /3 2-06 sulfate ity of mL (0.083 09:25: 2[place]5 mg/3 [place] 15 mL (0.083 Medical nebulizer %) Branch solution solution for nebulizati on USE I VAIL IN NEBULIZER EVERY 6 HOURS NEEDED acetaminoph 2021-06 Yes acetaminop Univers en 500 mg 2-06 hen 500 mg ity of tablet 09:25: tablet [place] 15 Take 2 Medical tablets Branch every day by oral route as needed for 7 days. Cholecalcif 2021-06 Yes 1{tbl} Take 1 Un zenon aric, 2-06 tablet by ity of Vitamin D3, 09:25: mouth [place] 125 mcg 15 every Medical (5,000 morning. Branch unit) tablet BABY 2021-06 Yes Take by Univers ASPIRIN 2-06 mouth. ity of ORAL 09:25: [place] 15 Medical Branch vitamin C 2021-06 Yes 1000mg Take 1,000 Univers with fausto 2-06 mg by ity of hips 09:25: mouth in [place] (VITAMIN C) 15 the Medical 1,000 mg morning. Branch tablet Lactobacill 2021-06 Yes Take by Uni vers us 2-06 mouth. ity of acidophilus 09:25: [place] (PROBIOTIC 15 Medical ORAL) Branch albuterol 2021-06 Yes albuterol Uni vers 90 2-06 sulfate ity of mcg/actuati 09:25: HFA 90 [place] on inhaler 15 mcg/actuat Med ical ion Branch aerosol inhaler albuterol 2021-06 Yes albuterol Uni vers 2.5 mg /3 2-06 sulfate ity of mL (0.083 09:25: 2.5 mg/3 [place] 15 mL (0.083 Medical nebulizer %) Branch solution solution for nebulizati on USE I VAIL IN NEBULIZER EVERY 6 HOURS NEEDED acetaminoph 2021-06 Yes acetaminop Univers en 500 mg 2-06 hen 500 mg ity of tablet 09:25: tablet [place] 15 Take 2 Medical tablets Branch every day by oral route as needed for 7 days. Cholecalcif 2021-06 Yes 1{tbl} Take 1 Un zenon aric, 2-06 tablet by ity of Vitamin D3, 09:25: mouth [place] 125 mcg 15 every Medical (5,000 morning. Branch unit) tablet BABY 2021-06 Yes Take by [facility] ASPIRIN 2-06 mouth. ity of ORAL 09:25: [place] 15 Medical Branch vitamin C 2021-06 Yes 1000mg Take 1,000 Univers with fausto 2-06 mg by ity of hips 09:25: mouth in [place] (VITAMIN C) 15 the Medical 1,000 mg morning. Branch tablet Lactobacill 2021-06 Yes Take by Uni vers us 2-06 mouth. ity of acidophilus 09:25: [place] (PROBIOTIC 15 Medical ORAL) Branch albuterol 2021-06 Yes albuterol Uni vers 90 2-06 sulfate ity of mcg/actuati 09:25: HFA 90 [place] on inhaler 15 mcg/actuat Med ical ion Branch aerosol inhaler albuterol 2021-06 Yes albuterol Uni vers 2.5 mg /3 2-06 sulfate ity of mL (0.083 09:25: 2.5 mg/3 [place] 15 mL (0.083 Medical nebulizer %) Branch solution solution for nebulizati on USE I VAIL IN NEBULIZER EVERY 6 HOURS NEEDED acetaminoph 2021-06 Yes acetaminop Univers en 500 mg 2-06 hen 500 mg ity of tablet 09:25: tablet [place] 15 Take 2 Medical tablets Branch every day by oral route as needed for 7 days. Cholecalcif 2021-06 Yes 1{tbl} Take 1 Un zenon aric, 2-06 tablet by ity of Vitamin D3, 09:25: mouth [place] 125 mcg 15 every Medical (5,000 morning. Branch unit) tablet BABY 2021-06 Yes Take by [facility] ASPIRIN 2-06 mouth. ity of ORAL 09:25: [place] 15 [facility] vitamin C 2021-06 Yes 1000mg Take 1,000 Univers with fausto 2-06 mg by ity of hips 09:25: mouth in [place] (VITAMIN C) 15 the Medical 1,000 mg morning. Branch tablet Lactobacill 2021-06 Yes Take by Uni vers us 2-06 mouth. ity of acidophilus 09:25: [place] (PROBIOTIC 15 Medical ORAL) [place] albuterol 2021-06 Yes albuterol Uni vers 90 2-06 sulfate ity of mcg/actuati 09:25: HFA 90 [place] on inhaler 15 mcg/actuat Med ical ion [place] aerosol inhaler albuterol 2021-06 Yes albuterol Uni vers 2.5 mg /3 2-06 sulfate ity of mL (0.083 09:25: 2.5 mg/3 [place] 15 mL (0.083 Medical nebulizer %) Branch solution solution for nebulizati on USE I VAIL IN NEBULIZER EVERY 6 HOURS NEEDED acetaminoph 2021-06 Yes acetaminop Univers en 500 mg 2-06 hen 500 mg ity of tablet 09:25: tablet [place] 15 Take 2 Medical tablets Branch every day by oral route as needed for 7 days. Cholecalcif 2021-06 Yes 1{tbl} Take 1 Un zenon aric, 2-06 tablet by ity of Vitamin D3, 09:25: mouth [place] 125 mcg 15 every Medical (5,000 morning. Branch unit) tablet BABY 2021-06 Yes Take by [facility] ASPIRIN 2-06 mouth. ity of ORAL 09:25: [place] 15 [facility] vitamin C 2021-06 Yes 1000mg Take 1,000 Univers with fausto 2-06 mg by ity of hips 09:25: mouth in [place] (VITAMIN C) 15 the Medical 1,000 mg morning. Branch tablet Lactobacill 2021-06 Yes Take by Uni vers us 2-06 mouth. ity of acidophilus 09:25: [place] (PROBIOTIC 15 Medical ORAL) Branch albuterol 2021-06 Yes albuterol Uni vers 90 2-06 sulfate ity of mcg/actuati 09:25: HFA 90 [place] on inhaler 15 mcg/actuat Med ical ion Branch aerosol inhaler albuterol 2021-06 Yes albuterol Uni vers 2.5 mg /3 2-06 sulfate ity of mL (0.083 09:25: 2.5 mg/3 [place] %) 15 mL (0.083 Medical nebulizer %) Branch solution solution for nebulizati on USE I VAIL IN NEBULIZER EVERY 6 HOURS NEEDED acetaminoph 2021-06 Yes acetaminop Univers en 500 mg 2-06 hen 500 mg ity of tablet 09:25: tablet [place] 15 Take 2 Medical tablets Branch every day by oral route as needed for 7 days. Cholecalcif 2021-06 Yes 1{tbl} Take 1 Un zenon aric, 2-06 tablet by ity of Vitamin D3, 09:25: mouth [place] 125 mcg 15 every Medical (5,000 morning. Branch unit) tablet BABY 2021-06 Yes Take by [facility] ASPIRIN 2-06 mouth. ity of ORAL 09:25: [place] 15 Medical Branch vitamin C 2021-06 Yes 1000mg Take 1,000 Univers with fausto 2-06 mg by ity of hips 09:25: mouth in [place] (VITAMIN C) 15 the Medical 1,000 mg morning. Branch tablet Lactobacill 2021-06 Yes Take by [employer] vers us 2-06 mouth. ity of acidophilus 09:25: [place] (PROBIOTIC 15 Medical ORAL) Branch albuterol 2021-06 Yes albuterol Uni vers 90 2-06 sulfate ity of mcg/actuati 09:25: HFA 90 [place] on inhaler 15 mcg/actuat Med ical ion Branch aerosol inhaler albuterol 2021-06 Yes albuterol Uni vers 2.5 mg /3 2-06 sulfate ity of mL (0.083 09:25: 2.5 mg/3 [place] 15 mL (0.083 Medical nebulizer %) Branch solution solution for nebulizati on USE I VAIL IN NEBULIZER EVERY 6 HOURS NEEDED acetaminoph 2021-06 Yes acetaminop Univers en 500 mg 2-06 hen 500 mg ity of tablet 09:25: tablet [place] 15 Take 2 Medical tablets Branch every day by oral route as needed for 7 days. Cholecalcif 2021-06 Yes 1{tbl} Take 1 Un zenon aric, 2-06 tablet by ity of Vitamin D3, 09:25: mouth [place] 125 mcg 15 every Medical (5,000 morning. Branch unit) tablet BABY 2021-06 Yes Take by Univers ASPIRIN 2-06 mouth. ity of ORAL 09:25: [place] 15 Medical Branch vitamin C 2021-06 Yes 1000mg Take 1,000 Univers with fausto 2-06 mg by ity of hips 09:25: mouth in [place] (VITAMIN C) 15 the Medical 1,000 mg morning. Branch tablet Lactobacill 2021-06 Yes Take by Uni vers us 2-06 mouth. ity of acidophilus 09:25: [place] (PROBIOTIC 15 Medical ORAL) Branch albuterol 2021-06 Yes albuterol Uni vers 90 2-06 sulfate ity of mcg/actuati 09:25: HFA 90 [place] on inhaler 15 mcg/actuat Med ical ion Branch aerosol inhaler proMETHazin 2021-06 Yes promethazi Univers e 25 mg 2 ne 25 mg ity of tablet 09:23: tablet [place] 18 TAKE 1 Medical TABLET BY Branch MOUTH EVERY 6 HOURS NEEDED FOR NAUSEA ketorolac 2021-06 Yes ketorolac Uni vers 0.5 % 08-04 0.5 % eye ity of ophthalmic 09:23: drops [place] solution 18 INSTILL 1 Medica l DROP IN Branch EACH EYE TWICE A DAY . diphenoxyla 2021-06 Yes diphenoxyl Univers te-atropine 08-04 ate-atropi it y of 2.5-0.025 09:23: ne 2.5 [place] mg tablet 18 mg-0.025 Medica l mg tablet Branch TAKE 2 TABLETS EVERY 8 HOURS BY ORAL ROUTE NEEDED FOR 10 DAYS. cinacalcet 2021-06 Yes cinacalcet U nivers 30 mg 2- 30 mg ity of tablet 09:23: tablet [place] 18 Take 1 Medical tablet 3 Branch times a week by oral route. budesonide- 2021-06 Yes Symbicort U nivers formoteroL 2- 160 ity of 160-4.5 09:23: mcg-4.5 [place] mcg/actuati 18 mcg/actuat Me dical on inhaler ion HFA Branch aerosol inhaler INHALE 2 PUFFS BY MOUTH TWICE DAILY NEEDED azelastine 2021-06 Yes azelastine U nivers 137 mcg 2- 137 mcg ity of (0.1 %) 09:23: (0.1 %) [place] nasal spray 18 nasal Medical spray Branch aerosol [place] Ann 2 sprays twice a day by nasal route as needed for 30 days. epoetin 2021-06 Yes [id number] inject Univer s bella 2,000 2- 40,000 ity of unit/mL 09:23: Units [place] injection 18 under the Medic al skin. Branch proMETHazin 2021-06 Yes promethazi Univers e 25 mg 2 ne 25 mg ity of tablet 09:23: tablet [place] 18 TAKE 1 Medical TABLET BY Branch MOUTH EVERY 6 HOURS NEEDED FOR NAUSEA ketorolac 2021-06 Yes ketorolac Uni vers 0.5 % 2 0.5 % eye ity of ophthalmic 09:23: drops [place] solution 18 INSTILL 1 Medica l DROP IN Branch EACH EYE TWICE A DAY . diphenoxyla 2021-06 Yes diphenoxyl Univers te-atropine 08-04 ate-atropi it y of 2.5-0.025 09:23: ne 2.5 [place] mg tablet 18 mg-0.025 Medica l mg tablet Branch TAKE 2 TABLETS EVERY 8 HOURS BY ORAL ROUTE NEEDED FOR 10 DAYS. cinacalcet 2021-06 Yes cinacalcet U nivers 30 mg 2 30 mg ity of tablet 09:23: tablet [place] 18 Take 1 Medical tablet 3 Branch times a week by oral route. budesonide- 2021-06 Yes Symbicort U nivers formoteroL 2- 160 ity of 160-4.5 09:23: mcg-4.5 [place] mcg/actuati 18 mcg/actuat Me dical on inhaler ion HFA Branch aerosol inhaler INHALE 2 PUFFS BY MOUTH TWICE DAILY NEEDED azelastine 2021-06 Yes azelastine U nivers 137 mcg 2- 137 mcg ity of (0.1 %) 09:23: (0.1 %) [place] nasal spray 18 nasal Medical spray Branch aerosol Sarah Ann 2 sprays twice a day by nasal route as needed for 30 days. epoetin 2021-06 Yes [id number] inject Univer s bella 2,000 2-06 40,000 ity of unit/mL 09:23: Units [place] injection 18 under the Medic al skin. Branch proMETHazin 2021-06 Yes promethazi Univers e 25 mg 2- ne 25 mg ity of tablet 09:23: tablet [place] 18 TAKE 1 Medical TABLET BY Branch MOUTH EVERY 6 HOURS NEEDED FOR NAUSEA ketorolac 2021-06 Yes ketorolac Uni vers 0.5 % 2 0.5 % eye ity of ophthalmic 09:23: drops [place] solution 18 INSTILL 1 Medica l DROP IN Branch EACH EYE TWICE A DAY . diphenoxyla 2021-06 Yes diphenoxyl [facility] te-atropine 2 ate-atropi it y of 2.5-0.025 09:23: ne 2.5 [place] mg tablet 18 mg-0.025 Medica l mg tablet Branch TAKE 2 TABLETS EVERY 8 HOURS BY ORAL ROUTE NEEDED FOR 10 DAYS. cinacalcet 2021-06 Yes cinacalcet U nivers 30 mg 2 30 mg ity of tablet 09:23: tablet [place] 18 Take 1 Medical tablet 3 Branch times a week by oral route. budesonide- 2021-06 Yes Symbicort U nivers formoteroL 2- 160 ity of 160-4.5 09:23: mcg-4.5 [place] mcg/actuati 18 mcg/actuat Me dical on inhaler ion HFA Branch aerosol inhaler INHALE 2 PUFFS BY MOUTH TWICE DAILY NEEDED azelastine 2021-06 Yes azelastine U nivers 137 mcg 2-06 137 mcg ity of (0.1 %) 09:23: (0.1 %) [place] nasal spray 18 nasal Medical spray [place] aerosol Sarah Ann 2 sprays twice a day by nasal route as needed for 30 days. epoetin 2021-06 Yes [id number] inject Univer s bella 2,000 2-06 40,000 ity of unit/mL 09:23: Units [place] injection 18 under the Medic al skin. Branch proMETHazin 2021-06 Yes promethazi Univers e 25 mg 2-06 ne 25 mg ity of tablet 09:23: tablet [place] 18 TAKE 1 Medical TABLET BY Branch MOUTH EVERY 6 HOURS NEEDED FOR NAUSEA ketorolac 2021-06 Yes ketorolac Uni vers 0.5 % 2-06 0.5 % eye ity of ophthalmic 09:23: drops [place] solution 18 INSTILL 1 Medica l DROP IN Branch EACH EYE TWICE A DAY . diphenoxyla 2021-06 Yes diphenoxyl Univers te-atropine 2- ate-atropi it y of 2.5-0.025 09:23: ne 2.5 [place] mg tablet 18 mg-0.025 Medica l mg tablet Branch TAKE 2 TABLETS EVERY 8 HOURS BY ORAL ROUTE NEEDED FOR 10 DAYS. cinacalcet 2021-06 Yes cinacalcet U nivers 30 mg 2- 30 mg ity of tablet 09:23: tablet [place] 18 Take 1 Medical tablet 3 Branch times a week by oral route. budesonide- 2021-06 Yes Symbicort U nivers formoteroL 2- 160 ity of 160-4.5 09:23: mcg-4.5 [place] mcg/actuati 18 mcg/actuat Me dical on inhaler ion HFA [place] aerosol inhaler INHALE 2 PUFFS BY MOUTH TWICE DAILY NEEDED azelastine 2021-06 Yes azelastine U nivers 137 mcg 2- 137 mcg ity of (0.1 %) 09:23: (0.1 %) [place] nasal spray 18 nasal Medical spray [place] aerosol Sarah Ann 2 sprays twice a day by nasal route as needed for 30 days. epoetin 2021-06 Yes [id number] inject Univer s bella 2,000 2-06 40,000 ity of unit/mL 09:23: Units [place] injection 18 under the Medic al skin. Branch proMETHazin 2021-06 Yes promethazi Univers e 25 mg 2-06 ne 25 mg ity of tablet 09:23: tablet 18 TAKE 1 Medical TABLET BY Branch MOUTH EVERY 6 HOURS NEEDED FOR NAUSEA ketorolac 2021-06 Yes ketorolac Uni vers 0.5 % 2-06 0.5 % eye ity of ophthalmic 09:23: drops [place] solution 18 INSTILL 1 Medica l DROP IN Branch EACH EYE TWICE A DAY . diphenoxyla 2021-06 Yes diphenoxyl Univers te-atropine 2-06 ate-atropi it y of 2.5-0.025 09:23: ne 2.5 [place] mg tablet 18 mg-0.025 Medica l mg tablet Branch TAKE 2 TABLETS EVERY 8 HOURS BY ORAL ROUTE NEEDED FOR 10 DAYS. cinacalcet 2021-06 Yes cinacalcet U nivers 30 mg 2- 30 mg ity of tablet 09:23: tablet [place] 18 Take 1 Medical tablet 3 Branch times a week by oral route. budesonide- 2021-06 Yes Symbicort U nivers formoteroL 2- 160 ity of 160-4.5 09:23: mcg-4.5 [place] mcg/actuati 18 mcg/actuat Me dical on inhaler ion HFA Branch aerosol inhaler INHALE 2 PUFFS BY MOUTH TWICE DAILY NEEDED azelastine 2021-06 Yes azelastine U nivers 137 mcg 2- 137 mcg ity of (0.1 %) 09:23: (0.1 %) [place] nasal spray 18 nasal Medical spray [place] aerosol Sarah Ann 2 sprays twice a day by nasal route as needed for 30 days. epoetin 2021-06 Yes [id number] inject Univer s bella 2,000 2- 40,000 ity of unit/mL 09:23: Units [place] injection 18 under the Medic al skin. Branch proMETHazin 2021-06 Yes promethazi Univers e 25 mg 2- ne 25 mg ity of tablet 09:23: tablet 18 TAKE 1 Medical TABLET BY Branch MOUTH EVERY 6 HOURS NEEDED FOR NAUSEA ketorolac 2021-06 Yes ketorolac Uni vers 0.5 % 2- 0.5 % eye ity of ophthalmic 09:23: drops [place] solution 18 INSTILL 1 Medica l DROP IN Branch EACH EYE TWICE A DAY . diphenoxyla 2021-06 Yes diphenoxyl Univers te-atropine 2-06 ate-atropi it y of 2.5-0.025 09:23: ne 2.5 [place] mg tablet 18 mg-0.025 Medica l mg tablet Branch TAKE 2 TABLETS EVERY 8 HOURS BY ORAL ROUTE NEEDED FOR 10 DAYS. cinacalcet 2021-06 Yes cinacalcet U nivers 30 mg 2-06 30 mg ity of tablet 09:23: tablet [place] 18 Take 1 Medical tablet 3 Branch times a week by oral route. budesonide- 2021-06 Yes Symbicort U nivers formoteroL 2-06 160 ity of 160-4.5 09:23: mcg-4.5 [place] mcg/actuati 18 mcg/actuat Me dical on inhaler ion HFA Branch aerosol inhaler INHALE 2 PUFFS BY MOUTH TWICE DAILY NEEDED azelastine 2021-06 Yes azelastine U nivers 137 mcg 2-06 137 mcg ity of (0.1 %) 09:23: (0.1 %) [place] nasal spray 18 nasal Medical spray [place] aerosol Sarah Ann 2 sprays twice a day by nasal route as needed for 30 days. epoetin 2021-06 Yes [id number] inject Univer s bella 2,000 2- 40,000 ity of unit/mL 09:23: Units [place] injection 18 under the Medic al skin. Branch pioglitazon 2021-06 Yes pioglitazo Univers e 15 mg 2-06 ne 15 mg ity of tablet 09:19: tablet [place] 37 TAKE 1 Medical TABLET BY Branch MOUTH EVERY DAY HYDROcodone 2021-06 Yes hydrocodon Univers -acetaminop 2-06 e 5 ity of hen 5-325 09:19: mg-acetami [place] mg tablet 37 nophen 325 Medi wilfredo mg tablet Branch TAKE 1 TABLET BY MOUTH TWICE A DAY NEEDED pioglitazon 2021-06 Yes pioglitazo Univers e 15 mg 2-06 ne 15 mg ity of tablet 09:19: tablet [place] 37 TAKE 1 Medical TABLET BY Branch MOUTH EVERY DAY HYDROcodone 2021-06 Yes hydrocodon Univers -acetaminop 2-06 e 5 ity of hen 5-325 09:19: mg-acetami [place] mg tablet 37 nophen 325 Medi wilfredo mg tablet Branch TAKE 1 TABLET BY MOUTH TWICE A DAY NEEDED pioglitazon 2021-06 Yes pioglitazo Univers e 15 mg 2-06 ne 15 mg ity of tablet 09:19: tablet [place] 37 TAKE 1 Medical TABLET BY Branch MOUTH EVERY DAY HYDROcodone 2021-06 Yes hydrocodon Univers -acetaminop 2-06 e 5 ity of hen 5-325 09:19: mg-acetami [place] mg tablet 37 nophen 325 Medi wilfredo mg tablet Branch TAKE 1 TABLET BY MOUTH TWICE A DAY NEEDED pioglitazon 2021-06 Yes pioglitazo Univers e 15 mg 2-06 ne 15 mg ity of tablet 09:19: tablet 37 TAKE 1 Medical TABLET BY Branch MOUTH EVERY DAY HYDROcodone 2021-06 Yes hydrocodon Univers -acetaminop 2-06 e 5 ity of hen 5-325 09:19: mg-acetami [place] mg tablet 37 nophen 325 Medi wilfred[place] mg tablet Branch TAKE 1 TABLET BY MOUTH TWICE A DAY NEEDED pioglitazon 2021-06 Yes pioglitazo Univers e 15 mg 2-06 ne 15 mg ity of tablet 09:19: tablet 37 TAKE 1 Medical TABLET BY Branch MOUTH EVERY DAY HYDROcodone 2021-06 Yes hydrocodon Univers -acetaminop 2-06 e 5 ity of hen 5-325 09:19: mg-acetami [place] mg tablet 37 nophen 325 Medi wilfred[facility] mg tablet Branch TAKE 1 TABLET BY MOUTH TWICE A DAY NEEDED pioglitazon 2021-06 Yes pioglitazo Univers e 15 mg 2-06 ne 15 mg ity of tablet 09:19: tablet 37 TAKE 1 Medical TABLET BY Branch MOUTH EVERY DAY HYDROcodone 2021-06 Yes hydrocodon Univers -acetaminop 2-06 e 5 ity of hen 5-325 09:19: mg-acetami [place] mg tablet 37 nophen 325 Medi wilfred[facility] mg tablet Branch TAKE 1 TABLET BY MOUTH TWICE A DAY NEEDED ferric 2021-06 Yes Take by Univers citrate 2-06 mouth. ity of (AURYXIA 09:17: [place] ORAL) [address] [place] [address] ferric 2021-06 Yes Take by Univers citrate 2-06 mouth. ity of (AURYXIA 09:17: [place] ORAL) [address] [place] [address] Branch ferric 2021-06 Yes Take by Univers citrate 2-06 mouth. ity of (AURYXIA 09:17: [place] ORAL) [address] [place] [address] Branch ferric 2021-06 Yes Take by Univers citrate 2-06 mouth. ity of (AURYXIA 09:17: [place] ORAL) [address] [place] [address] ferric 2021-06 Yes Take by Univers citrate 2-06 mouth. ity of (AURYXIA 09:17: [place] ORAL) [address] [place] [address] ferric 2021-06 Yes Take by Univers citrate 2-06 mouth. ity of (AURYXIA 09:17: [place] ORAL) 47 Medical Branch isosorbide 2021-06 Yes isosorbide U nivers mononitrate 2-06 mononitrat it y of 30 mg 24 hr 09:15: e ER 30 mg [place] tablet 15 tablet,ext Medical ended Branch release 24 hr TAKE 1 TABLET BY MOUTH EVERY DAY amLODIPine 2021-06 Yes amlodipine U nivers 5 mg tablet 2-06 5 mg ity of 09:15: tablet [place] 15 TAKE 1 Medical TABLET BY Branch MOUTH EVERY DAY isosorbide 2021-06 Yes isosorbide U nivers mononitrate 2-06 mononitrat it y of 30 mg 24 hr 09:15: e ER 30 mg [place] tablet 15 tablet,ext Medical ended Branch release 24 hr TAKE 1 TABLET BY MOUTH EVERY DAY amLODIPine 2021-06 Yes amlodipine U nivers 5 mg tablet 2-06 5 mg ity of 09:15: tablet [place] 15 TAKE 1 Medical TABLET BY Branch MOUTH EVERY DAY isosorbide 2021-06 Yes isosorbide U nivers mononitrate 2-06 mononitrat it y of 30 mg 24 hr 09:15: e ER 30 mg [place] tablet 15 tablet,ext Medical ended Branch release 24 hr TAKE 1 TABLET BY MOUTH EVERY DAY amLODIPine 2021-06 Yes amlodipine U nivers 5 mg tablet 2-06 5 mg ity of 09:15: tablet [place] 15 TAKE 1 Medical TABLET BY Branch MOUTH EVERY DAY isosorbide 2021-06 Yes isosorbide U nivers mononitrate 2-06 mononitrat it y of 30 mg 24 hr 09:15: e ER 30 mg [place] tablet 15 tablet,ext Medical ended Branch release 24 hr TAKE 1 TABLET BY MOUTH EVERY DAY amLODIPine 2021-06 Yes amlodipine U nivers 5 mg tablet 2-06 5 mg ity of 09:15: tablet [place] 15 TAKE 1 Medical TABLET BY Branch MOUTH EVERY DAY isosorbide 2021-06 Yes isosorbide U nivers mononitrate 2-06 mononitrat it y of 30 mg 24 hr 09:15: e ER 30 mg [place] tablet 15 tablet,ext Medical ended Branch release 24 hr TAKE 1 TABLET BY MOUTH EVERY DAY amLODIPine 2021-06 Yes amlodipine U nivers 5 mg tablet 2-06 5 mg ity of 09:15: tablet [place] 15 TAKE 1 Medical TABLET BY Branch MOUTH EVERY DAY isosorbide 2021-06 Yes isosorbide U nivers mononitrate 2-06 mononitrat it y of 30 mg 24 hr 09:15: e ER 30 mg [place] tablet 15 tablet,ext Medical ended Branch release 24 hr TAKE 1 TABLET BY MOUTH EVERY DAY amLODIPine 2021-06 Yes amlodipine U nivers 5 mg tablet 2-06 5 mg ity of 09:15: tablet 15 TAKE 1 Medical TABLET BY Branch MOUTH EVERY DAY tiZANidine 2021-06 Yes Univers 2 mg tablet 2-05 ity of 00:00: [place] [facility] tiZANidine 2021-06 Yes Univers 2 mg tablet 2-05 ity of 00:00: [place] [facility] tiZANidine 2021-06 Yes Univers 2 mg tablet 2-05 ity of 00:00: [place] [facility] tiZANidine 2021-06 Yes Univers 2 mg tablet 2-05 ity of 00:00: [place] [facility] tiZANidine 2021-06 Yes Univers 2 mg tablet 2-05 ity of 00:00: [place] [facility] tiZANidine 2021-06 Yes Univers 2 mg tablet 2-05 ity of 00:00: [place] [facility] tiZANidine 2021-06- No 2mg QD Take 1 [facility] (ZANAFLEX) 2- 05-24 tablet (2 st 2 MG tablet 00:00: 00:00 mg total) Hospita 00 :00 by mouth l nightly. tiZANidine 2021-06- No 2mg QD Take 1 [facility] (ZANAFLEX) 2- 05-24 tablet (2 st 2 MG tablet 00:00: 00:00 mg total) Hospita 00 :00 by mouth l nightly. tiZANidine 2021-06- No 2mg QD Take 1 [facility] (ZANAFLEX) 2- 05-24 tablet (2 st 2 MG tablet 00:00: 00:00 mg total) Hospita 00 :00 by mouth l nightly. pantoprazol 2021-06 No 40mg QD Take [address] [facility] 07-[facility] (PROTONIX[facility] 17:37: 00:00 daily. Medi wilfredo 40 MG 56 :00 Center tablet celecoxib 2021-06- No 100mg Take [address] (CeleBREX) 1-29 11-29 mg by [facility] 100 MG 17:37: 00:00 mouth Medical capsule 56 :00 every 12 Center (twelve) hours as needed for Pain . aspirin 81 2021-06- No 81mg QD Take [address] [facility] EC -27 05- by mouth [facility] tablet 17:37: 00:00 daily. Medical 56 :00 Center pantoprazol 2021-06- No 40mg QD Take [address] [facility] -29 -29 by mouth [facility] (PROTONIX) 17:37: 00:00 daily. Medi wilfredo 40 MG 56 :00 Center tablet celecoxib 2021-06 100mg Take [address] (CeleBREX) - 11-29 mg by [facility] 100 MG 17:37: 00:00 mouth Medical capsule 56 :00 every 12 Center (twelve) hours as needed for Pain . aspirin 81 2021-06- No 81mg QD Take [address] [facility] MG EC -27 05- by mouth [facility] tablet 17:37: 00:00 daily. Medical 56 :00 Center pantoprazol 2021-06 Yes 40mg Q.5D Take [address] [facility] 1-29 tablet (40 [facility] (PROTONIX) 00:00: mg total) Me dical 40 MG 00 by mouth 2 Center tablet (two) times daily. pantoprazol 2021-06 Yes 40mg Q.5D Take [address] [facility] 1-29 tablet (40 [facility] (PROTONIX) 00:00: mg total) Me dical 40 MG 00 by mouth 2 Center tablet (two) times daily. calcium 2021-06 No 1{tbl} QD Take 1 [facility] citrate 1-28 11-28 [facility] by [facility] (CALCITRATE 20:01: 00:00 mouth Medi wilfredo ) 200 mg 28 :00 daily. Center (950 mg) tablet calcium 2021-06 No 1{tbl} QD Take 1 [facility] citrate 1-28 11-28 [facility] (CALCITRATE 20:01: 00:00 mouth Medi wilfredo ) 200 mg 28 :00 daily. Center (950 mg) tablet amLODIPine 2021-06 Yes 10mg Q.5D Take 1 [facility] (NORVASC) 1-26 tablet (10 st 10 mg 00:00: mg total) Hospita tablet 00 by mouth 2 l (two) times a day. amLODIPine 2021-06 Yes 10mg Q.5D Take 1 [facility] (NORVASC) 1-26 tablet (10 st 10 mg 00:00: mg total) Hospita tablet 00 by mouth 2 l (two) times a day. amLODIPine 2021-06 Yes 10mg Q.5D Take 1 [facility] (NORVASC) 1-26 tablet (10 st 10 mg 00:00: mg total) Hospita tablet 00 by mouth 2 l (two) times a day. pregabalin 2021-06- No 25mg Take 25 mg Univers 25 mg 0-25 10-26 by mouth. ity of capsule 00:00: 04:59 [place] 00 :00 [facility] pregabalin 2021-2022- No 25mg Take 25 mg Univers 25 mg 0-25 10-26 by mouth. ity of capsule 00:00: 04:59 [place] 00 :00 Medical Branch pregabalin 2021-2022- No 25mg Take 25 mg Univers 25 mg 0-25 10-26 by mouth. ity of capsule 00:00: 04:59 [place] 00 :00 Medical Branch pregabalin 2021-2022- No 25mg Take 25 mg Univers 25 mg 0-25 10-26 by mouth. ity of capsule 00:00: 04:59 [place] 00 :00 Medical Branch pregabalin 2021-2022- No 25mg Take 25 mg Univers 25 mg 0-25 10-26 by mouth. ity of capsule 00:00: 04:59 [place] 00 :00 Medical Branch pregabalin 2021-2022- No 25mg Take 25 mg Univers 25 mg 0-25 10-26 by mouth. ity of capsule 00:00: 04:59 [place] 00 :00 Medical Branch pregabalin 2021-2022- No 25mg Q.5D Take 1 [facility] (LYRICA) 25 0-25 05-[address] MG capsule 00:00: 00:00 (25 mg [facility]osp [facility] 00 :00 total) by l mouth 2 (two) times a day. pregabalin 2021-2022- No 25mg Q.5D Take 1 [facility] (LYRICA) 25 0-25 05-[address] MG capsule 00:00: 00:00 (25 mg [facility]osp u[facility]do 00 :00 total) by l mouth 2 (two) times a day. pregabalin 2021-06- No 25mg Q.5D Take 1 [facility] (LYRICA) 25 0-25 05-[address] MG capsule 00:00: 00:00 (25 mg [facility]osp [facility] 00 :00 total) by l mouth 2 (two) times a day. montelukast 2021-06 Yes 10mg QD Take 1 [facility] (SINGULAIR) 0-19 tablet (10 st 10 mg 00:00: mg total) Hospita tablet 00 by mouth l daily. pantoprazol 2021-06 Yes 40mg Take 1 [facility] e 0-19 tablet (40 st (PROTONIX) 00:00: mg total) Ho spita 40 MG EC 00 by mouth. l tablet montelukast 2021-06 Yes 10mg QD Take 1 [facility] (SINGULAIR) 0-19 tablet (10 st 10 mg 00:00: mg total) Hospita tablet 00 by mouth l daily. pantoprazol 2021-06 Yes 40mg Take 1 [facility] e 0-19 tablet (40 st (PROTONIX) 00:00: mg total) Ho [facility]ita 40 MG EC 00 by mouth. l tablet pantoprazol 2021-06 Yes 40mg Take 40 mg Univers e 40 mg EC 0-19 by mouth. ity of tablet 00:00: [address] pantoprazol 2021-06 Yes 40mg Take 40 mg Univers e 40 mg EC 0-19 by mouth. ity of tablet 00:00: [address] pantoprazol 2021-06 Yes 40mg Take 40 mg Univers e 40 mg EC 0-19 by mouth. ity of tablet 00:00: [address] pantoprazol 2021-06 Yes 40mg Take 40 mg Univers e 40 mg EC 0-19 by mouth. ity of tablet 00:00: [address] pantoprazol 2021-06 Yes 40mg Take 40 mg Univers e 40 mg EC 0-19 by mouth. ity of tablet 00:00: [address] pantoprazol 2021-06 Yes 40mg Take 40 mg Univers e 40 mg EC 0-19 by mouth. ity of tablet 00:00: [place] 00 Medical Branch montelukast 2021-06 Yes 10mg QD Take 1 [facility] (SINGULAIR) 0-19 tablet (10 st 10 mg 00:00: mg total) Hospita tablet 00 by mouth l daily. pantoprazol 2021-06 Yes 40mg Take 1 [facility] e 0-19 tablet (40 st (PROTONIX) 00:00: mg total) Ho [facility]ita 40 MG EC 00 by mouth. l tablet DAILYVITE Yes 1{tbl} Take 1 Univ ers 100-1 mg 9-21 tablet by ity of Tab 00:00: mouth [place] 00 daily. Medical Branch DAILYVITE Yes 1{tbl} Take 1 Univ ers 100-1 mg 9-21 tablet by ity of Tab 00:00: mouth [place] 00 daily. Medical Branch DAILYVITE Yes 1{tbl} Take 1 Univ ers 100-1 mg 9-21 tablet by ity of Tab 00:00: mouth [place] 00 daily. Medical Branch DAILYVITE Yes 1{tbl} Take 1 Univ ers 100-1 mg 9-21 tablet by ity of Tab 00:00: mouth [place] 00 daily. Medical Branch DAILYVITE Yes 1{tbl} Take 1 Univ ers 100-1 mg 9-21 tablet by ity of Tab 00:00: mouth [place] 00 daily. Medical Branch DAILYVITE Yes 1{tbl} Take 1 Univ ers 100-1 mg 9-21 tablet by ity of Tab 00:00: mouth [place] 00 daily. Medical Branch montelukast Yes montelukas Univers 10 mg 8-01 t 10 mg ity of tablet 10:40: tablet 05 TAKE 1 Medical TABLET BY Branch MOUTH EVERY DAY X 30 DAYS. montelukast Yes montelukas Univers 10 mg 8-01 t 10 mg ity of tablet 10:40: tablet 05 TAKE 1 Medical TABLET BY Branch MOUTH EVERY DAY X 30 DAYS. montelukast Yes montelukas Univers 10 mg 8-01 t 10 mg ity of tablet 10:40: tablet 05 TAKE 1 Medical TABLET BY Branch MOUTH EVERY DAY X 30 DAYS. montelukast Yes montelukas Univers 10 mg 01-27 t 10 mg ity of tablet 10:40: tablet 05 TAKE 1 Medical TABLET BY Branch MOUTH EVERY DAY X 30 DAYS. montelukast Yes montelukas Univers 10 mg 01-27 t 10 mg ity of tablet 10:40: tablet 05 TAKE 1 Medical TABLET BY Branch MOUTH EVERY DAY X 30 DAYS. montelukast Yes montelukas Univers 10 mg 01-27 t 10 mg ity of tablet 10:40: tablet 05 TAKE 1 Medical TABLET BY Branch MOUTH EVERY DAY X 30 DAYS. proMETHazin Yes promethazi Univers e 25 mg 01-27 ne 25 mg ity of tablet 10:40: tablet 05 TAKE 1 Medical TABLET BY Branch MOUTH EVERY 6 HOURS NEEDED FOR NAUSEA pioglitazon Yes pioglitazo Univers e 15 mg 01-27 ne 15 mg ity of tablet 10:40: tablet TAKE 1 Medical TABLET BY Branch MOUTH EVERY DAY montelukast Yes montelukas Univers 10 mg 01-27 t 10 mg ity of tablet 10:40: tablet 05 TAKE 1 Medical TABLET BY Branch MOUTH EVERY DAY X 30 DAYS. ketorolac Yes ketorolac Uni vers 0.5 % 01-27 0.5 % eye ity of ophthalmic 10:40: drops [place] solution 05 INSTILL 1 Medica l DROP IN Branch EACH EYE TWICE A DAY . isosorbide Yes isosorbide U nivers mononitrate 01-27 mononitrat it y of 30 mg 24 hr 10:40: e ER 30 mg [place] tablet 05 tablet,ext Medical ended Branch release 24 hr TAKE 1 TABLET BY MOUTH EVERY DAY HYDROcodone Yes hydrocodon Univers -acetaminop 01-27 e 5 ity of hen 5-325 10:40: mg-acetami [place] mg tablet 05 nophen 325 Medi wilfredo mg tablet Branch TAKE 1 TABLET BY MOUTH TWICE A DAY NEEDED diphenoxyla Yes diphenoxyl Univers te-atropine 01-27 ate-atropi it y of 2.5-0.025 10:40: ne 2.5 [place] mg tablet 05 mg-0.025 Medica l mg tablet Branch TAKE 2 TABLETS EVERY 8 HOURS BY ORAL ROUTE NEEDED FOR 10 DAYS. cinacalcet Yes cinacalcet U nivers 30 mg 01-27 30 mg ity of tablet 10:40: tablet Take 1 Medical tablet 3 Branch times a week by oral route. budesonide- Yes Symbicort U nivers formoteroL 01-27 160 ity of 160-4.5 10:40: mcg-4.5 [place] mcg/actuati 05 mcg/actuat Me dical on inhaler ion HFA Branch aerosol inhaler INHALE 2 PUFFS BY MOUTH TWICE DAILY NEEDED azelastine Yes azelastine U nivers 137 mcg 01-27 137 mcg ity of (0.1 %) 10:40: (0.1 %) [place] nasal spray 05 nasal Medical spray Branch aerosol Sarah Ann 2 sprays twice a day by nasal route as needed for 30 days. amLODIPine Yes amlodipine U nivers 5 mg tablet 01-27 5 mg ity of 10:40: tablet TAKE 1 Medical TABLET BY Branch MOUTH EVERY DAY albuterol Yes albuterol Uni vers 90 01-27 sulfate ity of mcg/actuati 10:40: HFA 90 [place] on inhaler 05 mcg/actuat Med ical ion Branch aerosol inhaler albuterol Yes albuterol Uni vers 2.5 mg /3 01-27 sulfate ity of mL (0.083 10:40: 2.5 mg/3 [place] %) 05 mL (0.083 Medical nebulizer %) Branch solution solution for nebulizati on USE I VAIL IN NEBULIZER EVERY 6 HOURS NEEDED acetaminoph Yes acetaminop Univers en 500 mg 01-27 hen 500 mg ity of tablet 10:40: tablet Take 2 Medical tablets Branch every day by oral route as needed for 7 days. nystatin Yes [id number] Apply to Univers 100,000 01-27 area(s) 2 ity of unit/gram 00:00: (two) [place] powder 00 times Medical daily. Branch triamcinolo Yes [id number] Apply to [facility] ne 01-27 area(s) 2 ity of acetonide 00:00: (two) [place] 0.1 % cream 00 times Medical daily. Branch nystatin 2022-0 Yes [id number] Apply to Univers 100,000 8-01 area(s) 2 ity of unit/gram 00:00: (two) [place] cream 00 times Medical daily. Branch nystatin 2022-0 Yes [id number] Apply to Univers 100,000 8-01 area(s) 2 ity of unit/gram 00:00: (two) [place] powder 00 times Medical daily. Branch triamcinolo 2022-0 Yes [id number] Apply to Univers ne 8-01 area(s) 2 ity of acetonide 00:00: (two) [place] 0.1 % cream 00 times Medical daily. Branch nystatin 2022-0 Yes [id number] Apply to Univers 100,000 8-01 area(s) 2 ity of unit/gram 00:00: (two) [place] cream 00 times Medical daily. Branch nystatin 2022-0 Yes [id number] Apply to Univers 100,000 8-01 area(s) 2 ity of unit/gram 00:00: (two) [place] powder 00 times Medical daily. Branch triamcinolo 2022-0 Yes [id number] Apply to Univers ne 8-01 area(s) 2 ity of acetonide 00:00: (two) [place] 0.1 % cream 00 times Medical daily. Branch nystatin 2022-0 Yes [id number] Apply to Univers 100,000 8-01 area(s) 2 ity of unit/gram 00:00: (two) [place] cream 00 times Medical daily. Branch nystatin 2022-0 Yes [id number] Apply to Univers 100,000 8-01 area(s) 2 ity of unit/gram 00:00: (two) [place] powder 00 times Medical daily. Branch triamcinolo 2022-0 Yes [id number] Apply to Univers ne 8-01 area(s) 2 ity of acetonide 00:00: (two) [place] 0.1 % cream 00 times Medical daily. Branch nystatin 2022-0 Yes [id number] Apply to Univers 100,000 8-01 area(s) 2 ity of unit/gram 00:00: (two) [place] cream 00 times Medical daily. Branch nystatin 2022-0 Yes [id number] Apply to Univers 100,000 8-01 area(s) 2 ity of unit/gram 00:00: (two) [place] powder 00 times Medical daily. Branch triamcinolo 2022-0 Yes [id number] Apply to Univers ne 8-01 area(s) 2 ity of acetonide 00:00: (two) [place] 0.1 % cream 00 times Medical daily. Branch nystatin 2022-0 Yes [id number] Apply to Univers 100,000 8-01 area(s) 2 ity of unit/gram 00:00: (two) [place] cream 00 times Medical daily. Branch nystatin 2022-0 Yes [id number] Apply to Univers 100,000 8-01 area(s) 2 ity of unit/gram 00:00: (two) [place] powder 00 times Medical daily. Branch triamcinolo 2022-0 Yes [id number] Apply to Univers ne 8-01 area(s) 2 ity of acetonide 00:00: (two) [place] 0.1 % cream 00 times Medical daily. Branch nystatin 2022-0 Yes [id number] Apply to Univers 100,000 8-01 area(s) 2 ity of unit/gram 00:00: (two) [place] cream 00 times Medical daily. Branch nystatin 2022-0 Yes [id number] Apply to Univers 100,000 8-01 area(s) 2 ity of unit/gram 00:00: (two) [place] powder 00 times Medical daily. Branch triamcinolo 2022-0 Yes [id number] Apply to Univers ne 8-01 area(s) 2 ity of acetonide 00:00: (two) [place] 0.1 % cream 00 times Medical daily. Branch nystatin 2022-0 Yes [id number] Apply to Univers 100,000 8-01 area(s) 2 ity of unit/gram 00:00: (two) [place] cream 00 times Medical daily. Branch benzonatate 2022-0 Yes 1{capsu Take 1 U nivers 100 mg 7-05 le} capsule by ity of capsule 00:00: mouth. Medical Branch benzonatate 2021-0 Yes 1{capsu Take 1 U nivers 100 mg 7-05 le} capsule by ity of capsule 00:00: mouth. Medical Branch benzonatate 2-0 Yes 1{capsu Take 1 U nivers 100 mg 7-05 le} capsule by ity of capsule 00:00: mouth. Medical Branch benzonatate 2022-0 Yes 1{capsu Take 1 U nivers 100 mg 7-05 le} capsule by ity of capsule 00:00: mouth. Medical Branch benzonatate Yes 1{capsu Take 1 U nivers 100 mg 7-05 le} capsule by ity of capsule 00:00: mouth. Medical Branch benzonatate Yes 1{capsu Take 1 U nivers 100 mg 7-05 le} capsule by ity of capsule 00:00: mouth. [facility] Branch benzonatate 2022- No 100mg Take 1 [facility] (TESSALON) 12-[address] 100 MG 00:00: 00:00 (100 mg [facility]osp[facility] capsule 00 :00 total) by l mouth. benzonatate 2022- No 100mg Take 1 [facility] (TESSALON) 12-[address] 100 MG 00:00: 00:00 (100 mg Hospita capsule 00 :00 total) by l mouth. benzonatate 2022- No 100mg Take 1 [facility] (TESSALON) 12-[address] 100 MG 00:00: 00:00 (100 mg [facility]ospita capsule 00 :00 total) by l mouth. Insulin [facility] [place] [facility] Glargine 5-26 KwikPen ity of (BASAGLAR 00:00: U-100 [place] KWIKPEN 00 Insulin Medical U-100 100 Branch INSULIN) unit/mL (3 100 unit/mL mL) (3 mL) subcutaneo injection us INJECT 10 UNITS SUBCUTANEO USLY WITH EACH MEAL NEEDED Insulin [facility] Glarg[facility] 5-26 KwikPen ity of (BASAGLAR 00:00: U-100 [place] KWIKPEN 00 Insulin Medical U-100 100 Branch INSULIN) unit/mL (3 100 unit/mL mL) (3 mL) subcutaneo injection us INJECT 10 UNITS SUBCUTANEO USLY WITH EACH MEAL NEEDED [facility] KwikPen ity of (BASAGLAR 00:00: U-100 [place] KWIKPEN 00 Insulin Medical U-100 100 Branch INSULIN) unit/mL (3 100 unit/mL mL) (3 mL) subcutaneo injection us INJECT 10 UNITS SUBCUTANEO USLY WITH EACH MEAL NEEDED Insulin Yes [facility] Glargine 5-26 KwikPen ity of (BASAGLAR 00:00: U-100 [place] KWIKPEN 00 Insulin Medical U-100 100 Branch INSULIN) unit/mL (3 100 unit/mL mL) (3 mL) subcutaneo injection us INJECT 10 UNITS SUBCUTANEO USLY WITH EACH MEAL NEEDED Insulin Yes [facility] [place] Glargine 5-26 KwikPen ity of (BASAGLAR 00:00: U-100 [place] KWIKPEN 00 Insulin Medical U-100 100 Branch INSULIN) unit/mL (3 100 unit/mL mL) (3 mL) subcutaneo injection us INJECT 10 UNITS SUBCUTANEO USLY WITH EACH MEAL NEEDED Insulin Yes [facility] Gl[place] 5-26 KwikPen ity of (BASAGLAR 00:00: U-100 [place] KWIKPEN 00 Insulin Medical U-100 100 Branch INSULIN) unit/mL (3 100 unit/mL mL) (3 mL) subcutaneo injection us INJECT 10 UNITS SUBCUTANEO USLY WITH EACH MEAL NEEDED Insulin Yes [facility] [place] Glargine 5-26 KwikPen ity of (BASAGLAR 00:00: U-100 [place] KWIKPEN 00 Insulin Medical U-100 100 Branch INSULIN) unit/mL (3 100 unit/mL mL) (3 mL) subcutaneo injection us INJECT 10 UNITS SUBCUTANEO USLY WITH EACH MEAL NEEDED azelastine 2022- No 1{spray 1 spray [facility] (ASTELIN) 11-01 } into each st 137 mcg 00:00: 00:00 nostril. Hospi ta (0.1 %) 00 :00 l nasal spray azelastine 2022- No 1{spray 1 spray [facility] (ASTELIN) 11-01 } into each st 137 mcg 00:00: 00:00 nostril. Hospi ta (0.1 %) 00 :00 l nasal spray azelastine 0 3- No 1{spray 1 spray [facility] (ASTELIN) 11-01 } into each st 137 mcg 00:00: 00:00 nostril. Hospi ta (0.1 %) 00 :00 l nasal spray brimonidine brimonidine 0 No brimonidin [place] 0.2 % eye 0.2 % eye 5-03 e 0.2 % Me dical drops drops 00:00: eye drops Group INSTILL 1 INSTILL 1 00 INSTILL 1 DROP IN DROP IN DROP IN BOTH EYES BOTH EYES BOTH EYES TWICE DAILY TWICE DAILY TWICE DAILY Dialyvite Dialyvite No Dialyvite [place] 800 0.8 mg 800 0.8 mg 5-03 800 0.8 mg Medical tablet TAKE tablet TAKE 00:00: tablet Group 1 TABLET BY 1 TABLET BY 00 TAKE 1 MOUTH EVERY MOUTH EVERY TABLET BY DAY WITH DAY WITH MOUTH THE LARGEST THE LARGEST EVERY DAY MEAL MEAL WITH THE LARGEST MEAL brimonidine brimonidine No brimonidin [place] 0.2 % eye 0.2 % eye 5-03 e 0.2 % Me dical drops drops 00:00: eye drops Group INSTILL 1 INSTILL 1 00 INSTILL 1 DROP IN DROP IN DROP IN BOTH EYES BOTH EYES BOTH EYES TWICE DAILY TWICE DAILY TWICE DAILY Dialyvite Dialyvite No Dialyvite [place] 800 0.8 mg 800 0.8 mg 5-03 800 0.8 mg Medical tablet TAKE tablet TAKE 00:00: tablet Group 1 TABLET BY 1 TABLET BY 00 TAKE 1 MOUTH EVERY MOUTH EVERY TABLET BY DAY WITH DAY WITH MOUTH THE LARGEST THE LARGEST EVERY DAY MEAL MEAL WITH THE LARGEST MEAL brimonidine brimonidine 0 No brimonidin [place] 0.2 % eye 0.2 % eye 5-03 e 0.2 % Me dical drops drops 00:00: eye drops Group INSTILL 1 INSTILL 1 00 INSTILL 1 DROP IN DROP IN DROP IN BOTH EYES BOTH EYES BOTH EYES TWICE DAILY TWICE DAILY TWICE DAILY Dialyvite Dialyvite No Dialyvite [place] 800 0.8 mg 800 0.8 mg 5-03 800 0.8 mg Medical tablet TAKE tablet TAKE 00:00: tablet Group 1 TABLET BY 1 TABLET BY 00 TAKE 1 MOUTH EVERY MOUTH EVERY TABLET BY DAY WITH DAY WITH MOUTH THE LARGEST THE LARGEST EVERY DAY MEAL MEAL WITH THE LARGEST MEAL brimonidine brimonidine No brimonidin [place] 0.2 % eye 0.2 % eye 10-29 e 0.2 % Me dical drops drops 00:00: eye drops Group INSTILL 1 INSTILL 1 00 INSTILL 1 DROP IN DROP IN DROP IN BOTH EYES BOTH EYES BOTH EYES TWICE DAILY TWICE DAILY TWICE DAILY Dialyvite Dialyvite No Dialyvite [place] 800 0.8 mg 800 0.8 mg 10-29 800 0.8 mg Medical tablet TAKE tablet TAKE 00:00: tablet Group 1 TABLET BY 1 TABLET BY 00 TAKE 1 MOUTH EVERY MOUTH EVERY TABLET BY DAY WITH DAY WITH MOUTH THE LARGEST THE LARGEST EVERY DAY MEAL MEAL WITH THE LARGEST MEAL compounded compounded No compounded [place] medicationP medicationP 8- medication Medical er Allergy er Allergy 11:35: Per G roup Protocol Protocol 15 Allergy Protocol compounded compounded No compounded [place] medicationp medicationp 8- medication Medical er allergen er allergen 10:36: per Group protocol protocol 44 allergen protocol compounded compounded No compounded [place] medicationP medicationP 7- medication Medical er Allergy er Allergy 12:44: Per G roup Protocol Protocol 54 Allergy Protocol compounded compounded No compounded [place] medicationP medicationP 7- medication Medical er Allergy er Allergy 12:40: Per G roup Protocol Protocol 13 Allergy Protocol compounded compounded No compounded [place] medicationP medicationP 7- medication Medical er Allergy er Allergy 21:30: Per G roup Protocol Protocol 00 Allergy Protocol compounded compounded No compounded [place] medicationP medicationP - medication Medical er Allergen er Allergen 09:33: Per Group Protocol Protocol 00 Allergen Protocol compounded compounded No compounded [place] medicationp medicationp 7- medication Medical er allergy er allergy 15:06: per G roup protocol protocol 27 allergy protocol compounded compounded No compounded [place] medicationp medicationp 7- medication Medical er allergy er allergy 15:05: per G roup protocol protocol 46 allergy protocol compounded compounded 2021-0 No compounded [place] medicationp medicationp 7-19 medication Medical er allergy er allergy 14:17: per [facility] protocol protocol 38 allergy protocol compounded compounded No compounded [place] medicationp medicationp 7-19 medication Medical er allergy er allergy 14:16: per G [facility] protocol protocol 56 allergy protocol compounded compounded 0 No compounded [place] medicationp medicationp 7-15 medication Medical er allergy er allergy 14:16: per G [facility]oup protocol protocol 30 allergy protocol compounded compounded No compounded [place] medicationp medicationp 7-15 medication Medical er allergy er allergy 14:15: per G [facility]oup protocol protocol 44 allergy protocol pioglitazon 2022- No 15mg Q24H Take 1 Met hodi e (ACTOS) 4-13 05-24 tablet (15 st 15 MG 00:00: 00:00 mg total) Hospit a tablet 00 :00 by mouth l daily as needed. pioglitazon 2022- No 15mg Q24H Take 1 [facility] (ACTOS) 4-13 05-24 tablet (15 st 15 MG 00:00: 00:00 mg total) Hospit a tablet 00 :00 by mouth l daily as needed. pioglitazon 2022- No 15mg Q24H Take 1 Met [facility]odi e (ACTOS) 4-13 05-24 tablet (15 st 15 MG 00:00: 00:00 mg total) Hospit a tablet 00 :00 by mouth l daily as needed. isosorbide 2020-0 Yes DAILY [facility] mononitrate 2-02 st (IMDUR) 30 00:00: Hospita MG 24 hr 00 l tablet isosorbide 2020-0 Yes DAILY [facility] mononitrate [facility]-02 st (IMDUR) 30 00:00: Hospita MG 24 hr 00 l tablet isosorbide 2020-0 Yes DAILY [facility] mononitrate 2-02 st (IMDUR) 30 00:00: Hospita MG 24 hr 00 l tablet famotidine 2022- No famotidine [facility] (PEPCID) 20 1-26 02-[address] MG tablet 00:00: 00:00 tablet Hospi ta 00 :00 Take 1 l tablet twice a day by oral route. famotidine 2022- No famotidine [facility] (PEPCID) 20 07-24-[address] MG tablet 00:00: 00:00 tablet Hospi ta 00 :00 Take 1 l tablet twice a day by oral route. famotidine 2022- No famotidine [facility] (PEPCID) 07-24-[address] MG tablet 00:00: 00:00 tablet Hospi ta 00 :00 Take 1 l tablet twice a day by oral route. losartan 2018-0 Yes 100mg Take 100 Univ ers 100 mg 2-20 mg by ity of tablet 00:00: mouth [place] 00 daily. Medical Branch losartan 2018-0 Yes 100mg Take 100 Univ ers 100 mg 2-20 mg by ity of tablet 00:00: mouth [place] 00 daily. Medical Branch losartan 2018-0 Yes 100mg Take 100 Univ ers 100 mg 2-20 mg by ity of tablet 00:00: mouth [place] 00 daily. Medical Branch losartan 2018-0 Yes 100mg Take 100 Univ ers 100 mg 2-20 mg by ity of tablet 00:00: mouth [place] 00 daily. Medical Branch losartan 2018-0 Yes 100mg Take 100 Univ ers 100 mg 2-20 mg by ity of tablet 00:00: mouth [place] 00 daily. Medical Branch losartan 2018-0 Yes 100mg Take 100 Univ ers 100 mg 2-20 mg by ity of tablet 00:00: mouth [place] 00 daily. Medical Branch losartan 2018-0 Yes 100mg Take 100 Univ ers 100 mg 2-20 mg by ity of tablet 00:00: mouth [place] 00 daily. Medical Branch calcium 2018-0 Yes 1{capsu Take 1 Unive rs acetate 667 2-16 le} capsule by it y of mg capsule 00:00: mouth [place] (three) Medical times Branch daily. calcium 2018-0 Yes 1{capsu Take 1 Unive rs acetate 667 2-16 le} capsule by it y of mg capsule 00:00: mouth 3 [place] (three) Medical times Branch daily. calcium 2018-0 Yes 1{capsu Take 1 Unive rs acetate 667 2-16 le} capsule by it y of mg capsule 00:00: mouth 3 [place] (three) Medical times Branch daily. calcium 2018-0 Yes 1{capsu Take 1 Unive rs acetate 667 2-16 le} capsule by it y of mg capsule 00:00: mouth [place] (three) Medical times Branch daily. calcium 2018-0 Yes 1{capsu Take 1 Unive rs acetate 667 2-16 le} capsule by it y of mg capsule 00:00: mouth [place] (three) Medical times Branch daily. calcium 2018-0 Yes 1{capsu Take 1 Unive rs acetate 667 2-16 le} capsule by it y of mg capsule 00:00: mouth [place] (three) Medical times Branch daily. calcium 2018-0 Yes 1{capsu Take 1 Unive rs acetate 667 2-16 le} capsule by it y of mg capsule 00:00: mouth [place] (three) Medical times Branch daily. atorvastati 2018-0 Yes 20mg Take 20 mg Univers n 20 mg 1-30 by mouth ity of tablet 00:00: daily. [place] [facility] bromfenac 2018-0 Yes 1[drp] Place 1 Uni vers 0.09 % 1-30 Drop in ity of ophthalmic 00:00: both eyes [place] solution 00 daily. Medical Branch carvedilol 2018-0 Yes 25mg Take 25 mg U nivers 25 mg 1-30 by mouth 2 ity of tablet 00:00: (two) times Medical daily. Branch atorvastati 20180 Yes 20mg Take 20 mg Univers n 20 mg 1-30 by mouth ity of tablet 00:00: daily. [place] [facility] bromfenac 2018-0 Yes 1[drp] Place 1 Uni vers 0.09 % 1-30 Drop in ity of ophthalmic 00:00: both eyes [place] solution 00 daily. Medical Branch carvedilol 2018-0 Yes 25mg Take 25 mg U nivers 25 mg 1-30 by mouth 2 ity of tablet 00:00: (two) times Medical daily. Branch atorvastati 2018-0 Yes 20mg Take 20 mg Univers n 20 mg 1-30 by mouth ity of tablet 00:00: daily. [place] [facility] bromfenac 2018-0 Yes 1[drp] Place 1 Uni vers 0.09 % 1-30 Drop in ity of ophthalmic 00:00: both eyes [place] solution 00 daily. Medical Branch carvedilol 2017-0 Yes 25mg Take 25 mg U nivers 25 mg 1-30 by mouth 2 ity of tablet 00:00: (two) [place] 00 times Medical daily. Branch atorvastati 0 Yes 20mg Take 20 mg Univers n 20 mg 1-30 by mouth ity of tablet 00:00: daily. Medical Branch bromfenac 2017-0 Yes 1[drp] Place 1 Uni vers 0.09 % 1-30 Drop in ity of ophthalmic 00:00: both eyes [place] solution 00 daily. Medical Branch carvedilol 0 Yes 25mg Take 25 mg U nivers 25 mg 1-30 by mouth 2 ity of tablet 00:00: (two) 00 times Medical daily. Branch atorvastati 0 Yes 20mg Take 20 mg Univers n 20 mg 1-30 by mouth ity of tablet 00:00: daily. Medical Branch bromfenac 2017-0 Yes 1[drp] Place 1 Uni vers 0.09 % 1-30 Drop in ity of ophthalmic 00:00: both eyes [place] solution 00 daily. Medical Branch carvedilol 0 Yes 25mg Take 25 mg U nivers 25 mg 1-30 by mouth 2 ity of tablet 00:00: (two) 00 times Medical daily. Branch atorvastati 0 Yes 20mg Take 20 mg Univers n 20 mg 1-30 by mouth ity of tablet 00:00: daily. Medical Branch bromfenac 2017-0 Yes 1[drp] Place 1 Uni vers 0.09 % 1-30 Drop in ity of ophthalmic 00:00: both eyes [place] solution 00 daily. Medical Branch carvedilol 0 Yes 25mg Take 25 mg U nivers 25 mg 1-30 by mouth 2 ity of tablet 00:00: (two) 00 times Medical daily. Branch atorvastati 2018-0 Yes 20mg Take 20 mg Univers n 20 mg 1-30 by mouth ity of tablet 00:00: daily. Medical Branch bromfenac 2017-0 Yes 1[drp] Place 1 Uni vers 0.09 % 1-30 Drop in ity of ophthalmic 00:00: both eyes [place] solution 00 daily. Medical Branch carvedilol 2018-0 Yes 25mg Take 25 mg U nivers 25 mg 1-30 by mouth 2 ity of tablet 00:00: (two) [place] 00 times Medical daily. Branch glimepiride 2018-0 Yes 2mg Take 2 mg U nivers 2 mg tablet 1-15 by mouth 2 it y of 00:00: (two) [place] 00 times Medical daily. Branch glimepiride 2018-0 Yes 2mg Take 2 mg U nivers 2 mg tablet 1-15 by mouth 2 it y of 00:00: (two) [place] 00 times Medical daily. Branch glimepiride 2018-0 Yes 2mg Take 2 mg U nivers 2 mg tablet 1-15 by mouth 2 it y of 00:00: (two) [place] 00 times Medical daily. Branch glimepiride 2018-0 Yes 2mg Take 2 mg U nivers 2 mg tablet 1-15 by mouth 2 it y of 00:00: (two) [place] 00 times Medical daily. Branch glimepiride 2018-0 Yes 2mg Take 2 mg U nivers 2 mg tablet 1-15 by mouth 2 it y of 00:00: (two) [place] 00 times Medical daily. Branch glimepiride 2018-0 Yes 2mg Take 2 mg U nivers 2 mg tablet 1-15 by mouth 2 it y of 00:00: (two) [place] 00 times Medical daily. Branch glimepiride 2018-0 Yes 2mg Take 2 mg U nivers 2 mg tablet 1-15 by mouth 2 it y of 00:00: (two) [place] 00 times Medical daily. Branch brimonidine 2018-0 Yes 1[drp] Place 1 U nivers 0.2 % 1-02 Drop in ity of ophthalmic 00:00: both eyes [place] solution 00 daily. Medical Branch brimonidine 2018-0 Yes 1[drp] Place 1 U nivers 0.2 % 1-02 Drop in ity of ophthalmic 00:00: both eyes [place] solution 00 daily. Medical Branch brimonidine 2018-0 Yes 1[drp] Place 1 U nivers 0.2 % 1-02 Drop in ity of ophthalmic 00:00: both eyes [place] solution 00 daily. Medical Branch brimonidine 2018-0 Yes 1[drp] Place 1 U nivers 0.2 % 1-02 Drop in ity of ophthalmic 00:00: both eyes [place] solution 00 daily. Medical Branch brimonidine Yes 1[drp] Place 1 U nivers 0.2 % 1-02 Drop in ity of ophthalmic 00:00: both eyes [place] solution 00 daily. Medical Branch brimonidine Yes 1[drp] Place 1 U nivers 0.2 % 1-02 Drop in ity of ophthalmic 00:00: both eyes [place] solution 00 daily. Medical Branch brimonidine Yes 1[drp] Place 1 U nivers 0.2 % 1-02 Drop in ity of ophthalmic 00:00: both eyes [place] solution 00 daily. Medical Branch hydralAZINE 2016-06 Yes 100mg Take 100 U nivers 100 mg 2-05 mg by ity of tablet 00:00: mouth 3 (three) Medical times Branch daily. hydralAZINE 2016-06 Yes 100mg Take 100 U nivers 100 mg 2-05 mg by ity of tablet 00:00: mouth 3 (three) Medical times Branch daily. hydralAZINE 2016-06 Yes 100mg Take 100 U nivers 100 mg 2-05 mg by ity of tablet 00:00: mouth 3 (three) Medical times Branch daily. hydralAZINE 2016-06 Yes 100mg Take 100 U nivers 100 mg 2-05 mg by ity of tablet 00:00: mouth 3 (three) Medical times Branch daily. hydralAZINE 2016-06 Yes 100mg Take 100 U nivers 100 mg 2-05 mg by ity of tablet 00:00: mouth 3 (three) Medical times Branch daily. hydralAZINE 2016-06 Yes 100mg Take 100 U nivers 100 mg 2-05 mg by ity of tablet 00:00: mouth 3 00 (three) Medical times Branch daily. hydralAZINE 2016-06 Yes 100mg Take 100 U nivers 100 mg 2-05 mg by ity of tablet 00:00: mouth 3 00 (three) Medical times Branch daily. Advair 2015-06 Yes [place] 1 puff [facility] a Diskus 0-13 [facility] l 04:16: [place] 47 Nasonex 2015-06 Yes [place] 2 sprays Mem oria 0-13 [facility] in each l 04:16: nostril [place] [id number] Spironolact 2016- Yes [place] 1 tablet [facility] one 0-13 [facility] l 04:16: [place] [address] Januvia 2015-06 Yes [place] 1 tablet Mem oria 0-13 [facility] l 04:16: [place] [address] Glimepiride 2016- Yes [place] 1 tablet [facility] 0-13 [facility] with l 04:16: breakfast [place] [address] or the first main meal of the day Atorvastati 2016 Yes [place] 1 tablet [facility] n Calcium 0-13 [facility] l 04:16: [place] [address] Omeprazole 2016- Yes [place] 1 tablet [facility] 0-13 [facility] l 04:16: [place] [address] Glimepiride 2016 Yes [place] 1 tablet [facility] 0-13 [facility] with l 04:16: breakfast [place] [address] or the first main meal of the day Atorvastati 2016 Yes [place] 1 tablet [facility] n Calcium 0-13 [facility] l 04:16: [place] [address] Omeprazole 2015-06 Yes [place] 1 tablet [facility] 0-13 [facility] l 04:16: [place] [address] Advair 2015-06 Yes [place] 1 puff [facility] a Diskus 0-13 [facility] l 04:16: [place] [address] Nasonex 2016 Yes [place] 2 sprays Mem oria 0-13 [facility] in each l 04:16: nostril [place] [address] Spironolact 2016- Yes [place] 1 tablet [facility] one 0-13 [facility] l 04:16: [place] [address] Januvia 2015-06 Yes [place] 1 tablet Mem oria 0-13 [facility] l 04:16: [place] [address] Glimepiride 2016- Yes [place] 1 tablet [facility] 0-13 [facility] with l 04:16: breakfast [place] [address] or the first main meal of the day Atorvastati 2016 Yes [place] 1 tablet [facility] n Calcium 0-13 [facility] l 04:16: [place] [address] Omeprazole 2016- Yes [place] 1 tablet [facility] 0-13 [facility] l 04:16: [place] [address] Advair 2016- Yes [place] 1 puff [facility] a Diskus 0-13 [facility] l 04:16: [place] [address] Nasonex 2016- Yes [place] 2 sprays Mem oria 0-13 [facility] in each l 04:16: nostril [place] [address] Spironolact 2016- Yes [place] 1 tablet [facility] one 0-13 [facility] l 04:16: [place] [address] Januvia 2015-06 Yes [place] 1 tablet Mem oria 0-13 [facility] l 04:16: [place] [address] Glimepiride 2016- Yes [place] 1 tablet [facility] 0-13 [facility] with l 04:16: breakfast [place] [address] or the first main meal of the day Atorvastati 2016- Yes [place] 1 tablet [facility] n Calcium 0-13 [facility] l 04:16: [place] [address] Omeprazole 2015- Yes [place] 1 tablet [facility] 0-13 [facility] l 04:16: [place] [address] Advair 2016 Yes [place] 1 puff [facility] a Diskus 0-13 [facility] l 04:16: [place] [address] Nasonex 2015- Yes [place] 2 sprays Mem oria 0-13 [facility] in each l 04:16: nostril [place] [address] Spironolact 2016- Yes [place] 1 tablet [facility] one 0-13 [facility] l 04:16: [place] [address] Januvia 2015-06 Yes [place] 1 tablet Mem oria 0-13 [facility] l 04:16: [place] [address] Glimepiride 2016- Yes [place] 1 tablet [facility]oria 0-13 [facility] with l 04:16: breakfast [place] [address] or the first main meal of the day Atorvastati 2016- Yes [place] 1 tablet [facility] n Calcium 0-13 [facility] l 04:16: [place] [address] Omeprazole 2016- Yes [place] 1 tablet [facility] 0-13 [facility] l 04:16: [place] [address] Advair 2016- Yes [place] 1 puff [facility] a Diskus 0-13 [facility] l 04:16: [place] [address] Nasonex 2016- Yes [place] 2 sprays Mem oria 0-13 [facility] in each l 04:16: nostril [place] [address] Spironolact 2016- Yes [place] 1 tablet [facility] one 0-13 [facility] l 04:16: [place] [address] Januvia 2016 Yes [place] 1 tablet Mem oria 0-13 [facility] l 04:16: [place] [address] Glimepiride 2016- Yes [place] 1 tablet [facility] 0-13 [facility] with l 04:16: breakfast [place] [address] or the first main meal of the day Atorvastati 2016- Yes [place] 1 tablet [facility] n Calcium 0-13 [facility] l 04:16: [place] [address] Omeprazole 2016- Yes [place] 1 tablet [facility] 0-13 [facility] l 04:16: [place] [address] Advair 2016 Yes [place] 1 puff [facility] a Diskus 0-13 [facility] l 04:16: [place] [address] Nasonex 2016- Yes [place] 2 sprays Mem oria 0-13 [facility] in each l 04:16: nostril [place] [address] Spironolact 2016 Yes [place] 1 tablet [facility] one 0-13 [facility] l 04:16: [place] [address] Januvia 2016- Yes [place] 1 tablet Mem oria 0-13 [facility] l 04:16: [place] [address] Glimepiride 2016- Yes [place] 1 tablet [facility] 0-13 [facility] with l 04:16: breakfast [place] [address] or the first main meal of the day Atorvastati 2016- Yes [place] 1 tablet [facility] n Calcium 0-13 [facility] l 04:16: [place] [address] Omeprazole 2016- Yes [place] 1 tablet [facility] 0-13 [facility] l 04:16: [place] [address] Advair 2016- Yes [place] 1 puff [facility] a Diskus 0-13 [facility] l 04:16: [place] [address] Nasonex 2016- Yes [place] 2 sprays Mem oria 0-13 [facility] in each l 04:16: nostril [place] [address] Spironolact 2016- Yes [place] 1 tablet [facility] one 0-13 [facility] l 04:16: [place] [address] Januvia 2016- Yes [place] 1 tablet Mem oria 0-13 [facility] l 04:16: [place] [address] Glimepiride 2016- Yes [place] 1 tablet [facility] 0-13 [facility] with l 04:16: breakfast [place] [address] or the first main meal of the day Atorvastati 2016- Yes [place] 1 tablet [facility] n Calcium 0-13 [facility] l 04:16: [place] [address] Omeprazole 2016- Yes [place] 1 tablet [facility] 0-13 [facility] l 04:16: [place] [address] Advair 2016- Yes [place] 1 puff [facility] a Diskus 0-13 [facility] l 04:16: [place] [address] Nasonex 2016- Yes [place] 2 sprays Mem oria 0-13 [facility] in each l 04:16: nostril [place] [address] Spironolact 2016- Yes [place] 1 tablet [facility] one 0-13 [facility] l 04:16: [place] [address] Januvia 2016- Yes [place] 1 tablet Mem oria 0-13 [facility] l 04:16: [place] [address] Glimepiride 2016- Yes [place] 1 tablet [facility] 0-13 [facility] with l 04:16: breakfast [place] [address] or the first main meal of the day Atorvastati 2016-1 Yes [place] 1 tablet [facility] n Calcium 0-13 [facility] l 04:16: [place] [address] Omeprazole 2016-1 Yes [place] 1 tablet [facility] 0-13 [facility] l 04:16: [place] [address] Advair 2016- Yes [place] 1 puff [facility] a Diskus 0-13 [facility] l 04:16: [place] [address] Nasonex 2016- Yes [place] 2 sprays Mem oria 0-13 [facility] in each l 04:16: nostril [place] Spironolact 2016-1 Yes [place] 1 tablet [facility] one 0-13 [facility] l 04:16: [place] Januvia 2016-1 Yes [place] 1 tablet Mem oria 0-13 [facility] l 04:16: [place] Isosorbide 2016-0 Yes [place] 1 tablet [facility] Dinitrate 8-19 [facility] l 00:00: HydrALAZINE 2016-0 Yes [place] 1 tablet [facility] HCl 8-19 [facility] l 00:00: Isosorbide 2016-0 Yes [place] 1 tablet [facility] Dinitrate 8-19 [facility] l 00:00: HydrALAZINE 2016-0 Yes [place] 1 tablet [facility] HCl 8-19 [facility] l 00:00: Isosorbide 2016-0 Yes [place] 1 tablet [facility] Dinitrate 8-19 [facility] l 00:00: HydrALAZINE 2016-0 Yes [place] 1 tablet [facility] HCl 8-19 [facility] l 00:00: Isosorbide 2016-0 Yes [place] 1 tablet [facility] Dinitrate 8-19 [facility] l 00:00: HydrALAZINE 2016-0 Yes [place] 1 tablet [facility] HCl 8-19 [facility] l 00:00: Isosorbide 2016-0 Yes [place] 1 tablet [facility] Dinitrate 8-19 [facility] l 00:00: HydrALAZINE 2016-0 Yes [place] 1 tablet [facility] HCl 8-19 [facility] l 00:00: Isosorbide 2016-0 Yes [place] 1 tablet [facility] Dinitrate 8-19 [facility] l 00:00: HydrALAZINE 2016-0 Yes [place] 1 tablet [facility] HCl 8-19 [facility] l 00:00: Isosorbide 2016-0 Yes [place] 1 tablet [facility] Dinitrate 8-19 [facility] l 00:00: HydrALAZINE 2016-0 Yes [place] 1 tablet [facility] HCl 8-19 [facility] l 00:00: Isosorbide 2016-0 Yes [place] 1 tablet [facility] Dinitrate 8-19 [facility] l 00:00: HydrALAZINE 2016-0 Yes [place] 1 tablet [facility] HCl 8-19 [facility] l 00:00: Isosorbide 2016-0 Yes [place] 1 tablet [facility] Dinitrate 8-19 [facility] l 00:00: HydrALAZINE 2016-0 Yes [place] 1 tablet [facility] HCl 8-19 [facility] l 00:00: Carvedilol 2016-0 Yes [place] dutch 5-05 [facility] directed l 00:00: Carvedilol 2016-0 No [place] 1 tablet [facility] 5-05 [facility] l 00:00: Carvedilol 2016-0 Yes [place] as [place] dutch 5-05 [facility] directed l 00:00: Carvedilol 2016-0 Yes [place] as [place] dutch 5-05 [facility] directed l 00:00: Carvedilol 2016-0 No [place] 1 tablet [facility] 5-05 [facility] l 00:00: Carvedilol 2016-0 Yes [place] as [place] dutch 5-05 [facility] directed l 00:00: Carvedilol 2016-0 Yes [place] as [place] dutch 5-05 [facility] directed l 00:00: Carvedilol 2016-0 No [place] 1 tablet [facility] 5-05 [facility] l 00:00: Carvedilol 2016-0 Yes [place] as [place] dutch 5-05 [facility] directed l 00:00: Carvedilol 2016-0 Yes [place] as [place] dutch 5-05 [facility] directed l 00:00: Carvedilol 2016-0 No [place] 1 tablet [facility] 5-05 [facility] l 00:00: Carvedilol [id number] Yes [place] as [place] dutch 5-05 [facility] directed l 00:00: Carvedilol 0 Yes [place] as [place] dutch 5-05 [facility] directed l 00:00: Carvedilol 20160 No [place] 1 tablet [facility]oria 5-05 [facility] l 00:00: Carvedilol 0 Yes [place] as [place] dutch 5-05 [facility] directed l 00:00: Carvedilol 0 Yes [place] as [place] dutch 5-05 [facility] directed l 00:00: Carvedilol 0 No [place] 1 tablet [facility] 5-05 [facility] l 00:00: Carvedilol 0 Yes [place] as [place] dutch 5-05 [facility] directed l 00:00: Carvedilol 0 Yes [place] as [place] dutch 5-05 [facility] directed l 00:00: Carvedilol 0 No [facility] 1 tablet [facility] 5-05 [facility] 00:00: Carvedilol 0 Yes [facility] as Sebastian dutch 5-05 [facility] directed l 00:00: Carvedilol 0 Yes [facility] as Sebastian dutch 5-05 [facility] directed l 00:00: Carvedilol 0 No [facility] 1 tablet [facility] 5-05 [facility] 00:00: Carvedilol 0 Yes [facility] as Sebastian dutch 5-05 [facility] directed l 00:00: Carvedilol 0 Yes [facility] as Sebastian dutch 5-05 [facility] directed l 00:00: Carvedilol 0 No [facility] 1 tablet [facility] 5-05 [facility] 00:00: Carvedilol 2016-0 Yes [facility] as Sebastian dutch 5-05 [facility] directed l 00:00: Amlodipine 2016-0 No [facility] 1 tablet [facility] Besylate 4-13 [facility] 00:00: Amlodipine 2016-0 No [facility] 1 tablet [facility] Besylate 4-13 [facility] 00:00: Amlodipine 2016-0 No [place] 1 tablet [facility] Besylate 4-13 [facility] 00:00: Amlodipine 2016-0 No [facility] 1 tablet [facility] Besylate 4-13 [facility] 00:00: Amlodipine 2016-0 No [facility] 1 tablet [facility] Besylate 4-13 [facility] 00:00: Amlodipine 2016-0 No [place] 1 tablet [facility] Besylate 4-13 [facility] 00:00: Amlodipine 2016-0 No [place] 1 tablet [facility] Besylate 4-13 [facility] 00:00: Amlodipine 2016-0 No [place] 1 tablet [facility] Besylate 4-13 [facility] 00:00: Amlodipine 2016-0 No [facility] 1 tablet [facility] Besylate 4-13 [facility] 00:00: atorvastati atorvastati No atorvastat [facility] n 20 mg n 20 mg in 20 mg Medic al tablet TAKE tablet TAKE tablet Group 1 TABLET BY 1 TABLET BY TAKE 1 MOUTH EVERY MOUTH EVERY TABLET BY DAY DAY MOUTH EVERY DAY azelastine azelastine No azelastine [facility] 137 mcg 137 mcg 137 mcg Medica l (0.1 %) (0.1 %) (0.1 %) Group nasal spray nasal spray nasal aerosol aerosol spray aerosol brimonidine brimonidine No brimonidin [facility] 0.2 % eye 0.2 % eye e 0.2 % Me dical drops drops eye drops Group INSTILL 1 INSTILL 1 INSTILL 1 DROP INTO DROP INTO DROP INTO BOTH EYES BOTH EYES BOTH EYES TWICE EACH TWICE EACH TWICE EACH DAY DAY DAY calcium calcium No calcium Stewar d acetate(marjan acetate(marjan acetate(ph Medical sphate sphate osphate Group binders) binders) binders) 667 mg 667 mg 667 mg capsule capsule capsule TAKE 2 TAKE 2 TAKE 2 CAPSULES BY CAPSULES BY CAPSULES MOUTH WITH MOUTH WITH BY MOUTH EVERY MEAL EVERY MEAL WITH EVERY MEAL carvedilol carvedilol No carvedilol [facility] 25 mg 25 mg 25 mg Medical tablet TAKE tablet TAKE tablet Group 1 TABLET BY 1 TABLET BY TAKE 1 MOUTH TWICE MOUTH TWICE TABLET BY A DAY A DAY MOUTH TWICE A DAY ciprofloxac ciprofloxac No ciprofloxa [facility] in 500 mg in 500 mg ibrahima 500 mg Medical tablet TAKE tablet TAKE tablet Group 1 TABLET BY 1 TABLET BY TAKE 1 MOUTH EVERY MOUTH EVERY TABLET BY DAY. ON DAY. ON MOUTH DAYS OF DAYS OF EVERY DAY. DIALYSIS, DIALYSIS, ON DAYS OF TAKE AFTER TAKE AFTER DIALYSIS, DIALYSIS DIALYSIS TAKE AFTER DIALYSIS Dialyvite Dialyvite No Dialyvite [facility] 800 0.8 mg 800 0.8 mg 800 0.8 mg Medical tablet TAKE tablet TAKE tablet Group 1 TABLET BY 1 TABLET BY TAKE 1 MOUTH EVERY MOUTH EVERY TABLET BY DAY DAY MOUTH EVERY DAY epinephrine epinephrine No epinephrin [facility] 0.3 mg/0.3 0.3 mg/0.3 e 0.3 Me dical mL mL mg/0.3 mL Group injection, injection, injection, auto-inject auto-inject auto-injec or INJECT 1 or INJECT 1 tor INJECT PEN IN THE PEN IN THE 1 PEN IN MUSCLE ONE MUSCLE ONE THE MUSCLE TIME TIME ONE TIME DIRECTED DIRECTED DIRECTED famotidine famotidine No famotidine [facility] 20 mg 20 mg 20 mg Medical tablet TAKE tablet TAKE tablet Group 1 TABLET BY 1 TABLET BY TAKE 1 MOUTH TWICE MOUTH TWICE TABLET BY A DAY A DAY MOUTH TWICE A DAY furosemide furosemide No furosemide [facility] 40 mg 40 mg 40 mg Medical tablet TAKE tablet TAKE tablet Group 1 TABLET BY 1 TABLET BY TAKE 1 MOUTH EVERY MOUTH EVERY TABLET BY OTHER DAY OTHER DAY MOUTH EVERY OTHER DAY glimepiride glimepiride No glimepirid [facility] 4 mg tablet 4 mg tablet e 4 mg Medical tablet Group isosorbide isosorbide No isosorbide [facility] mononitrate mononitrate mononitrat Medical ER 30 mg ER 30 mg e ER 30 mg G roup tablet,exte tablet,exte tablet,ext nded nded ended release 24 release 24 release 24 hr TAKE 1 hr TAKE 1 hr TAKE 1 TABLET BY TABLET BY TABLET BY MOUTH EVERY MOUTH EVERY MOUTH DAY IN THE DAY IN THE EVERY DAY MORNING MORNING IN THE MORNING ketorolac ketorolac No ketorolac [facility] 0.5 % eye 0.5 % eye 0.5 % eye Medical drops drops drops Group INSTILL 1 INSTILL 1 INSTILL 1 DROP TWICE DROP TWICE DROP TWICE A DAY INTO A DAY INTO A DAY INTO BOTH EYES BOTH EYES BOTH EYES pioglitazon pioglitazon No pioglitazo [place] e 15 mg e 15 mg ne 15 mg Medic al tablet TAKE tablet TAKE tablet Group 1 TABLET BY 1 TABLET BY TAKE 1 MOUTH EVERY MOUTH EVERY TABLET BY MORNING MORNING MOUTH EVERY MORNING Symbicort Symbicort No Symbicort [place] 160 mcg-4.5 160 mcg-4.5 160 M edical mcg/actuati mcg/actuati mcg-4.5 Group on HFA on HFA mcg/actuat aerosol aerosol ion HFA inhaler inhaler aerosol inhaler Tradjenta 5 Tradjenta 5 No Tradjenta [facility] mg tablet mg tablet 5 mg Medic al TAKE 1 TAKE 1 tablet Group TABLET BY TABLET BY TAKE 1 MOUTH EVERY MOUTH EVERY TABLET BY DAY DAY MOUTH EVERY DAY atorvastati atorvastati No atorvastat [facility] n 20 mg n 20 mg in 20 mg Medic al tablet TAKE tablet TAKE tablet Group 1 TABLET BY 1 TABLET BY TAKE 1 MOUTH EVERY MOUTH EVERY TABLET BY DAY DAY MOUTH EVERY DAY azelastine azelastine No azelastine [place] 137 mcg 137 mcg 137 mcg Medica l (0.1 %) (0.1 %) (0.1 %) Group nasal spray nasal spray nasal aerosol aerosol spray aerosol brimonidine brimonidine No brimonidin [facility] 0.2 % eye 0.2 % eye e 0.2 % Me dical drops drops eye drops Group INSTILL 1 INSTILL 1 INSTILL 1 DROP INTO DROP INTO DROP INTO BOTH EYES BOTH EYES BOTH EYES TWICE EACH TWICE EACH TWICE EACH DAY DAY DAY calcium calcium No calcium Stewar d acetate(marjan acetate(marjan acetate(ph Medical sphate sphate osphate Group binders) binders) binders) 667 mg 667 mg 667 mg capsule capsule capsule TAKE 2 TAKE 2 TAKE 2 CAPSULES BY CAPSULES BY CAPSULES MOUTH WITH MOUTH WITH BY MOUTH EVERY MEAL EVERY MEAL WITH EVERY MEAL carvedilol carvedilol No carvedilol [facility] 25 mg 25 mg 25 mg Medical tablet TAKE tablet TAKE tablet Group 1 TABLET BY 1 TABLET BY TAKE 1 MOUTH TWICE MOUTH TWICE TABLET BY A DAY A DAY MOUTH TWICE A DAY ciprofloxac ciprofloxac No ciprofloxa [place] in 500 mg in 500 mg ibrahima 500 mg Medical tablet TAKE tablet TAKE tablet Group 1 TABLET BY 1 TABLET BY TAKE 1 MOUTH EVERY MOUTH EVERY TABLET BY DAY. ON DAY. ON MOUTH DAYS OF DAYS OF EVERY DAY. DIALYSIS, DIALYSIS, ON DAYS OF TAKE AFTER TAKE AFTER DIALYSIS, DIALYSIS DIALYSIS TAKE AFTER DIALYSIS Dialyvite Dialyvite No Dialyvite [facility] 800 0.8 mg 800 0.8 mg 800 0.8 mg Medical tablet TAKE tablet TAKE tablet Group 1 TABLET BY 1 TABLET BY TAKE 1 MOUTH EVERY MOUTH EVERY TABLET BY DAY WITH DAY WITH MOUTH THE LARGEST THE LARGEST EVERY DAY MEAL MEAL WITH THE LARGEST MEAL epinephrine epinephrine No epinephrin [place] 0.3 mg/0.3 0.3 mg/0.3 e 0.3 Me dical mL mL mg/0.3 mL Group injection, injection, injection, auto-inject auto-inject auto-injec or INJECT 1 or INJECT 1 tor INJECT PEN IN THE PEN IN THE 1 PEN IN MUSCLE ONE MUSCLE ONE THE MUSCLE TIME TIME ONE TIME DIRECTED DIRECTED DIRECTED famotidine famotidine No famotidine [facility] 20 mg 20 mg 20 mg Medical tablet TAKE tablet TAKE tablet Group 1 TABLET BY 1 TABLET BY TAKE 1 MOUTH TWICE MOUTH TWICE TABLET BY A DAY A DAY MOUTH TWICE A DAY furosemide furosemide No furosemide [facility] 40 mg 40 mg 40 mg Medical tablet TAKE tablet TAKE tablet Group 1 TABLET BY 1 TABLET BY TAKE 1 MOUTH EVERY MOUTH EVERY TABLET BY OTHER DAY OTHER DAY MOUTH EVERY OTHER DAY glimepiride glimepiride No glimepirid [place] 4 mg tablet 4 mg tablet e 4 mg Medical tablet Group isosorbide isosorbide No isosorbide [facility] mononitrate mononitrate mononitrat Medical ER 30 mg ER 30 mg e ER 30 mg G roup tablet,exte tablet,exte tablet,ext nded nded ended release 24 release 24 release 24 hr TAKE 1 hr TAKE 1 hr TAKE 1 TABLET BY TABLET BY TABLET BY MOUTH EVERY MOUTH EVERY MOUTH DAY IN THE DAY IN THE EVERY DAY MORNING MORNING IN THE MORNING ketorolac ketorolac No ketorolac [facility] 0.5 % eye 0.5 % eye 0.5 % eye Medical drops drops drops Group INSTILL 1 INSTILL 1 INSTILL 1 DROP TWICE DROP TWICE DROP TWICE A DAY INTO A DAY INTO A DAY INTO BOTH EYES BOTH EYES BOTH EYES pioglitazon pioglitazon No pioglitazo [facility] e 15 mg e 15 mg ne 15 mg Medic al tablet TAKE tablet TAKE tablet Group 1 TABLET BY 1 TABLET BY TAKE 1 MOUTH EVERY MOUTH EVERY TABLET BY MORNING MORNING MOUTH EVERY MORNING Symbicort Symbicort No Symbicort [place] 160 mcg-4.5 160 mcg-4.5 160 M edical mcg/actuati mcg/actuati mcg-4.5 Group on HFA on HFA mcg/actuat aerosol aerosol ion HFA inhaler inhaler aerosol TAKE 2 TAKE 2 inhaler PUFFS BY PUFFS BY TAKE 2 MOUTH TWICE MOUTH TWICE PUFFS BY A DAY A DAY MOUTH TWICE A DAY Tradjenta 5 Tradjenta 5 No Tradjenta [facility] mg tablet mg tablet 5 mg Medic al TAKE 1 TAKE 1 tablet Group TABLET BY TABLET BY TAKE 1 MOUTH EVERY MOUTH EVERY TABLET BY DAY DAY MOUTH EVERY DAY atorvastati atorvastati No atorvastat [facility] n 20 mg n 20 mg in 20 mg Medic al tablet TAKE tablet TAKE tablet Group 1 TABLET BY 1 TABLET BY TAKE 1 MOUTH EVERY MOUTH EVERY TABLET BY DAY DAY MOUTH EVERY DAY azelastine azelastine No azelastine [place] 137 mcg 137 mcg 137 mcg Medica l (0.1 %) (0.1 %) (0.1 %) Group nasal spray nasal spray nasal aerosol aerosol spray aerosol brimonidine brimonidine No brimonidin [facility] 0.2 % eye 0.2 % eye e 0.2 % Me dical drops drops eye drops Group INSTILL 1 INSTILL 1 INSTILL 1 DROP INTO DROP INTO DROP INTO BOTH EYES BOTH EYES BOTH EYES TWICE EACH TWICE EACH TWICE EACH DAY DAY DAY calcium calcium No calcium Stewar d acetate(marjan acetate(marjan acetate(ph Medical sphate sphate osphate Group binders) binders) binders) 667 mg 667 mg 667 mg capsule capsule capsule TAKE 2 TAKE 2 TAKE 2 CAPSULES BY CAPSULES BY CAPSULES MOUTH WITH MOUTH WITH BY MOUTH EVERY MEAL EVERY MEAL WITH EVERY MEAL carvedilol carvedilol No carvedilol [place] 25 mg 25 mg 25 mg Medical tablet TAKE tablet TAKE tablet Group 1 TABLET BY 1 TABLET BY TAKE 1 MOUTH TWICE MOUTH TWICE TABLET BY A DAY A DAY MOUTH TWICE A DAY ciprofloxac ciprofloxac No ciprofloxa [place] in 500 mg in 500 mg ibrahima 500 mg Medical tablet TAKE tablet TAKE tablet Group 1 TABLET BY 1 TABLET BY TAKE 1 MOUTH EVERY MOUTH EVERY TABLET BY DAY. ON DAY. ON MOUTH DAYS OF DAYS OF EVERY DAY. DIALYSIS, DIALYSIS, ON DAYS OF TAKE AFTER TAKE AFTER DIALYSIS, DIALYSIS DIALYSIS TAKE AFTER DIALYSIS COMPOUNDED COMPOUNDED No COMPOUNDED [facility] MEDICATION MEDICATION MEDICATION Medical mold, cat, mold, cat, mold, cat, Group dog, horse, dog, horse, dog, dust mite dust mite horse, per allergy per allergy dust mite protocol pt protocol pt per tolerated tolerated allergy injection injection protocol well, and well, and pt stayed 30 stayed 30 tolerated minutes minutes injection afterwards afterwards well, and to make to make stayed 30 sure of no sure of no minutes adverse adverse afterwards reaction. reaction. to make atrevinoRMA atrevinoRMA sure of no adverse reaction. atrevinoRM A COMPOUNDED COMPOUNDED No COMPOUNDED [facility] MEDICATION MEDICATION MEDICATION Medical TGW per TGW per TGW per Group allergy allergy allergy protocol pt protocol pt protocol tolerated tolerated pt injection injection tolerated well and well and injection stayed 30 stayed 30 well and minutes minutes stayed 30 afterwards afterwards minutes to make to make afterwards sure of no sure of no to make adverse adverse sure of no reaction. reaction. adverse atrevinoRMA atrevinoRMA reaction. atrevinoRM A Dialyvite Dialyvite No Dialyvite [facility] 800 0.8 mg 800 0.8 mg 800 0.8 mg Medical tablet TAKE tablet TAKE tablet Group 1 TABLET BY 1 TABLET BY TAKE 1 MOUTH EVERY MOUTH EVERY TABLET BY DAY WITH DAY WITH MOUTH THE LARGEST THE LARGEST EVERY DAY MEAL MEAL WITH THE LARGEST MEAL epinephrine epinephrine No epinephrin [place] 0.3 mg/0.3 0.3 mg/0.3 e 0.3 Me dical mL mL mg/0.3 mL Group injection, injection, injection, auto-inject auto-inject auto-injec or INJECT 1 or INJECT 1 tor INJECT PEN IN THE PEN IN THE 1 PEN IN MUSCLE ONE MUSCLE ONE THE MUSCLE TIME TIME ONE TIME DIRECTED DIRECTED DIRECTED famotidine famotidine No famotidine [facility] 20 mg 20 mg 20 mg Medical tablet TAKE tablet TAKE tablet Group 1 TABLET BY 1 TABLET BY TAKE 1 MOUTH TWICE MOUTH TWICE TABLET BY A DAY A DAY MOUTH TWICE A DAY furosemide furosemide No furosemide [facility] 40 mg 40 mg 40 mg Medical tablet TAKE tablet TAKE tablet Group 1 TABLET BY 1 TABLET BY TAKE 1 MOUTH EVERY MOUTH EVERY TABLET BY OTHER DAY OTHER DAY MOUTH EVERY OTHER DAY glimepiride glimepiride No glimepirid [facility] 4 mg tablet 4 mg tablet e 4 mg Medical tablet Group isosorbide isosorbide No isosorbide [facility] mononitrate mononitrate mononitrat Medical ER 30 mg ER 30 mg e ER 30 mg G roup tablet,exte tablet,exte tablet,ext nded nded ended release 24 release 24 release 24 hr TAKE 1 hr TAKE 1 hr TAKE 1 TABLET BY TABLET BY TABLET BY MOUTH EVERY MOUTH EVERY MOUTH DAY IN THE DAY IN THE EVERY DAY MORNING MORNING IN THE MORNING ketorolac ketorolac No ketorolac [place] 0.5 % eye 0.5 % eye 0.5 % eye Medical drops drops drops Group INSTILL 1 INSTILL 1 INSTILL 1 DROP TWICE DROP TWICE DROP TWICE A DAY INTO A DAY INTO A DAY INTO BOTH EYES BOTH EYES BOTH EYES pioglitazon pioglitazon No pioglitazo [place] e 15 mg e 15 mg ne 15 mg Medic al tablet TAKE tablet TAKE tablet Group 1 TABLET BY 1 TABLET BY TAKE 1 MOUTH EVERY MOUTH EVERY TABLET BY MORNING MORNING MOUTH EVERY MORNING Symbicort Symbicort No Symbicort [place] 160 mcg-4.5 160 mcg-4.5 160 M edical mcg/actuati mcg/actuati mcg-4.5 Group on HFA on HFA mcg/actuat aerosol aerosol ion HFA inhaler inhaler aerosol TAKE 2 TAKE 2 inhaler PUFFS BY PUFFS BY TAKE 2 MOUTH TWICE MOUTH TWICE PUFFS BY A DAY A DAY MOUTH TWICE A DAY Tradjenta 5 Tradjenta 5 No Tradjenta [place] mg tablet mg tablet 5 mg Medic al TAKE 1 TAKE 1 tablet Group TABLET BY TABLET BY TAKE 1 MOUTH EVERY MOUTH EVERY TABLET BY DAY DAY MOUTH EVERY DAY atorvastati atorvastati No atorvastat [place] n 20 mg n 20 mg in 20 mg Medic al tablet TAKE tablet TAKE tablet Group 1 TABLET BY 1 TABLET BY TAKE 1 MOUTH EVERY MOUTH EVERY TABLET BY DAY DAY MOUTH EVERY DAY azelastine azelastine No azelastine [place] 137 mcg 137 mcg 137 mcg Medica l (0.1 %) (0.1 %) (0.1 %) Group nasal spray nasal spray nasal aerosol aerosol spray aerosol brimonidine brimonidine No brimonidin [facility] 0.2 % eye 0.2 % eye e 0.2 % Me dical drops drops eye drops Group INSTILL 1 INSTILL 1 INSTILL 1 DROP INTO DROP INTO DROP INTO BOTH EYES BOTH EYES BOTH EYES TWICE EACH TWICE EACH TWICE EACH DAY DAY DAY calcium calcium No calcium Stewar d acetate(marjan acetate(marjan acetate(ph Medical sphate sphate osphate Group binders) binders) binders) 667 mg 667 mg 667 mg capsule capsule capsule TAKE 2 TAKE 2 TAKE 2 CAPSULES BY CAPSULES BY CAPSULES MOUTH WITH MOUTH WITH BY MOUTH EVERY MEAL EVERY MEAL WITH EVERY MEAL carvedilol carvedilol No carvedilol [facility] 25 mg 25 mg 25 mg Medical tablet TAKE tablet TAKE tablet Group 1 TABLET BY 1 TABLET BY TAKE 1 MOUTH TWICE MOUTH TWICE TABLET BY A DAY A DAY MOUTH TWICE A DAY ciprofloxac ciprofloxac No ciprofloxa [facility] in 500 mg in 500 mg ibrahima 500 mg Medical tablet TAKE tablet TAKE tablet Group 1 TABLET BY 1 TABLET BY TAKE 1 MOUTH EVERY MOUTH EVERY TABLET BY DAY. ON DAY. ON MOUTH DAYS OF DAYS OF EVERY DAY. DIALYSIS, DIALYSIS, ON DAYS OF TAKE AFTER TAKE AFTER DIALYSIS, DIALYSIS DIALYSIS TAKE AFTER DIALYSIS COMPOUNDED COMPOUNDED No COMPOUNDED [facility] MEDICATION MEDICATION MEDICATION Medical molds, cat, molds, cat, molds, Group dog, horse dog, horse cat, dog, and dust and dust horse and mite per mite per dust mite allergy allergy per protocol pt protocol pt allergy tolerated tolerated protocol injection injection pt well and well and tolerated stayed 30 stayed 30 injection min min well and afterwards afterwards stayed 30 to make to make min sure of no sure of no afterwards adverse adverse to make reaction. reaction. sure of no atrevinoRMA atrevinoRMA adverse reaction. atrevinoRM A COMPOUNDED COMPOUNDED No COMPOUNDED [facility] MEDICATION MEDICATION MEDICATION Medical Trees, Trees, Trees, Group grass and grass and grass and weeds per weeds per weeds per allergy allergy allergy protocol pt protocol pt protocol tolerated tolerated pt injection injection tolerated well and well and injection stayed 30 stayed 30 well and minutes minutes stayed 30 afterwards afterwards minutes to make to make afterwards sure of no sure of no to make adverse adverse sure of no reaction. reaction. adverse atrevinoRMA atrevinoRMA reaction. atrevinoRM A COMPOUNDED COMPOUNDED No COMPOUNDED [facility] MEDICATION MEDICATION MEDICATION Medical TGW per TGW per TGW per Group allergy allergy allergy protocol pt protocol pt protocol tolerated tolerated pt injection injection tolerated well and well and injection stayed 30 stayed 30 well and minutes minutes stayed 30 afterwards afterwards minutes to make to make afterwards sure of no sure of no to make adverse adverse sure of no reaction. reaction. adverse atrevinoRMA atrevinoRMA reaction. atrevinoRM A COMPOUNDED COMPOUNDED No COMPOUNDED [facility] MEDICATION MEDICATION MEDICATION Medical mold, cat, mold, cat, mold, cat, Group dog, horse, dog, horse, dog, dust mite dust mite horse, per allergy per allergy dust mite protocol pt protocol pt per tolerated tolerated allergy injection injection protocol well, and well, and pt stayed 30 stayed 30 tolerated minutes minutes injection afterwards afterwards well, and to make to make stayed 30 sure of no sure of no minutes adverse adverse afterwards reaction. reaction. to make atrevinoRMA atrevinoRMA sure of no adverse reaction. atrevinoRM A Dialyvite Dialyvite No Dialyvite [facility] 800 0.8 mg 800 0.8 mg 800 0.8 mg Medical tablet TAKE tablet TAKE tablet Group 1 TABLET BY 1 TABLET BY TAKE 1 MOUTH EVERY MOUTH EVERY TABLET BY DAY WITH DAY WITH MOUTH THE LARGEST THE LARGEST EVERY DAY MEAL MEAL WITH THE LARGEST MEAL epinephrine epinephrine No epinephrin [facility] 0.3 mg/0.3 0.3 mg/0.3 e 0.3 Me dical mL mL mg/0.3 mL Group injection, injection, injection, auto-inject auto-inject auto-injec or INJECT 1 or INJECT 1 tor INJECT PEN IN THE PEN IN THE 1 PEN IN MUSCLE ONE MUSCLE ONE THE MUSCLE TIME TIME ONE TIME DIRECTED DIRECTED DIRECTED famotidine famotidine No famotidine [facility] 20 mg 20 mg 20 mg Medical tablet TAKE tablet TAKE tablet Group 1 TABLET BY 1 TABLET BY TAKE 1 MOUTH TWICE MOUTH TWICE TABLET BY A DAY A DAY MOUTH TWICE A DAY furosemide furosemide No furosemide [facility] 40 mg 40 mg 40 mg Medical tablet TAKE tablet TAKE tablet Group 1 TABLET BY 1 TABLET BY TAKE 1 MOUTH EVERY MOUTH EVERY TABLET BY OTHER DAY OTHER DAY MOUTH EVERY OTHER DAY glimepiride glimepiride No glimepirid [facility] 4 mg tablet 4 mg tablet e 4 mg Medical tablet Group isosorbide isosorbide No isosorbide [facility] mononitrate mononitrate mononitrat Medical ER 30 mg ER 30 mg e ER 30 mg G roup tablet,exte tablet,exte tablet,ext nded nded ended release 24 release 24 release 24 hr TAKE 1 hr TAKE 1 hr TAKE 1 TABLET BY TABLET BY TABLET BY MOUTH EVERY MOUTH EVERY MOUTH DAY IN THE DAY IN THE EVERY DAY MORNING MORNING IN THE MORNING ketorolac ketorolac No ketorolac [facility] 0.5 % eye 0.5 % eye 0.5 % eye Medical drops drops drops Group INSTILL 1 INSTILL 1 INSTILL 1 DROP TWICE DROP TWICE DROP TWICE A DAY INTO A DAY INTO A DAY INTO BOTH EYES BOTH EYES BOTH EYES pioglitazon pioglitazon No pioglitazo [place] e 15 mg e 15 mg ne 15 mg Medic al tablet TAKE tablet TAKE tablet Group 1 TABLET BY 1 TABLET BY TAKE 1 MOUTH EVERY MOUTH EVERY TABLET BY MORNING MORNING MOUTH EVERY MORNING Symbicort Symbicort No Symbicort [facility] 160 mcg-4.5 160 mcg-4.5 160 M edical mcg/actuati mcg/actuati mcg-4.5 Group on HFA on HFA mcg/actuat aerosol aerosol ion HFA inhaler inhaler aerosol TAKE 2 TAKE 2 inhaler PUFFS BY PUFFS BY TAKE 2 MOUTH TWICE MOUTH TWICE PUFFS BY A DAY A DAY MOUTH TWICE A DAY Tradjenta 5 Tradjenta 5 No Tradjenta [facility] mg tablet mg tablet 5 mg Medic al TAKE 1 TAKE 1 tablet Group TABLET BY TABLET BY TAKE 1 MOUTH EVERY MOUTH EVERY TABLET BY DAY DAY MOUTH EVERY DAY atorvastati atorvastati No atorvastat [facility] n 20 mg n 20 mg in 20 mg Medic al tablet TAKE tablet TAKE tablet Group 1 TABLET BY 1 TABLET BY TAKE 1 MOUTH EVERY MOUTH EVERY TABLET BY DAY DAY MOUTH EVERY DAY azelastine azelastine No azelastine [facility] 137 mcg 137 mcg 137 mcg Medica l (0.1 %) (0.1 %) (0.1 %) Group nasal spray nasal spray nasal aerosol aerosol spray aerosol BD Rut 2nd BD Rut 2nd No BD Rut [facility] Gen Pen Gen Pen 2nd Gen Medica l Needle 32 Needle 32 Pen Needle Group gauge x gauge x 32 gauge x " " " brimonidine brimonidine No brimonidin [facility] 0.2 % eye 0.2 % eye e 0.2 % Me dical drops drops eye drops Group INSTILL 1 INSTILL 1 INSTILL 1 DROP INTO DROP INTO DROP INTO BOTH EYES BOTH EYES BOTH EYES TWICE EACH TWICE EACH TWICE EACH DAY DAY DAY calcium calcium No calcium Stewar d acetate(marjan acetate(marjan acetate(ph Medical sphate sphate osphate Group binders) binders) binders) 667 mg 667 mg 667 mg capsule capsule capsule TAKE 2 TAKE 2 TAKE 2 CAPSULES BY CAPSULES BY CAPSULES MOUTH WITH MOUTH WITH BY MOUTH EVERY MEAL EVERY MEAL WITH EVERY MEAL carvedilol carvedilol No carvedilol [facility] 25 mg 25 mg 25 mg Medical tablet TAKE tablet TAKE tablet Group 1 TABLET BY 1 TABLET BY TAKE 1 MOUTH TWICE MOUTH TWICE TABLET BY A DAY A DAY MOUTH TWICE A DAY ciprofloxac ciprofloxac No ciprofloxa [facility] in 500 mg in 500 mg ibrahima 500 mg Medical tablet TAKE tablet TAKE tablet Group 1 TABLET BY 1 TABLET BY TAKE 1 MOUTH EVERY MOUTH EVERY TABLET BY DAY. ON DAY. ON MOUTH DAYS OF DAYS OF EVERY DAY. DIALYSIS, DIALYSIS, ON DAYS OF TAKE AFTER TAKE AFTER DIALYSIS, DIALYSIS DIALYSIS TAKE AFTER DIALYSIS COMPOUNDED COMPOUNDED No COMPOUNDED [facility] MEDICATION MEDICATION MEDICATION Medical cat dog per cat dog per cat dog Group allergy allergy per protocol pt protocol pt allergy tolerated tolerated protocol injection injection pt well and well and tolerated stayed 30 stayed 30 injection min min well and afterwards afterwards stayed 30 to make to make min sure of no sure of no afterwards adverse adverse to make reaction. reaction. sure of no atrevinoRMA atrevinoRMA adverse reaction. atrevinoRM A COMPOUNDED COMPOUNDED No COMPOUNDED [facility] MEDICATION MEDICATION MEDICATION Medical molds, cat, molds, cat, molds, Group dog, horse dog, horse cat, dog, and dust and dust horse and mite per mite per dust mite allergy allergy per protocol pt protocol pt allergy tolerated tolerated protocol injection injection pt well and well and tolerated stayed 30 stayed 30 injection min min well and afterwards afterwards stayed 30 to make to make min sure of no sure of no afterwards adverse adverse to make reaction. reaction. sure of no atrevinoRMA atrevinoRMA adverse reaction. atrevinoRM A COMPOUNDED COMPOUNDED No COMPOUNDED [facility] MEDICATION MEDICATION MEDICATION Medical mold, cat, mold, cat, mold, cat, Group dog, horse, dog, horse, dog, dust mite dust mite horse, per allergy per allergy dust mite protocol pt protocol pt per tolerated tolerated allergy injection injection protocol well, and well, and pt stayed 30 stayed 30 tolerated minutes minutes injection afterwards afterwards well, and to make to make stayed 30 sure of no sure of no minutes adverse adverse afterwards reaction. reaction. to make atrevinoRMA atrevinoRMA sure of no adverse reaction. atrevinoRM A COMPOUNDED COMPOUNDED No COMPOUNDED [facility] MEDICATION MEDICATION MEDICATION Medical Trees, Trees, Trees, Group grass and grass and grass and weeds per weeds per weeds per allergy allergy allergy protocol pt protocol pt protocol tolerated tolerated pt injection injection tolerated well and well and injection stayed 30 stayed 30 well and minutes minutes stayed 30 afterwards afterwards minutes to make to make afterwards sure of no sure of no to make adverse adverse sure of no reaction. reaction. adverse atrevinoRMA atrevinoRMA reaction. atrevinoRM A COMPOUNDED COMPOUNDED No COMPOUNDED [facility] MEDICATION MEDICATION MEDICATION Medical TGW per TGW per TGW per Group allergy allergy allergy protocol pt protocol pt protocol tolerated tolerated pt injection injection tolerated well and well and injection stayed 30 stayed 30 well and minutes minutes stayed 30 afterwards afterwards minutes to make to make afterwards sure of no sure of no to make adverse adverse sure of no reaction. reaction. adverse atrevinoRMA atrevinoRMA reaction. atrevinoRM A COMPOUNDED COMPOUNDED No COMPOUNDED [facility] MEDICATION MEDICATION MEDICATION Medical TGW per TGW per TGW per Group allergy allergy allergy protocol pt protocol pt protocol tolerated tolerated pt injection injection tolerated well and well and injection stayed 30 stayed 30 well and min min stayed 30 afterwards afterwards min to make to make afterwards sure of no sure of no to make adverse adverse sure of no reaction. reaction. adverse atrevinoRMA atrevinoRMA reaction. atrevinoRM A Dialyvite Dialyvite No Dialyvite [place] 800 0.8 mg 800 0.8 mg 800 0.8 mg Medical tablet TAKE tablet TAKE tablet Group 1 TABLET BY 1 TABLET BY TAKE 1 MOUTH EVERY MOUTH EVERY TABLET BY DAY WITH DAY WITH MOUTH THE LARGEST THE LARGEST EVERY DAY MEAL MEAL WITH THE LARGEST MEAL epinephrine epinephrine No epinephrin [facility] 0.3 mg/0.3 0.3 mg/0.3 e 0.3 Me dical mL mL mg/0.3 mL Group injection, injection, injection, auto-inject auto-inject auto-injec or INJECT 1 or INJECT 1 tor INJECT PEN IN THE PEN IN THE 1 PEN IN MUSCLE ONE MUSCLE ONE THE MUSCLE TIME TIME ONE TIME DIRECTED DIRECTED DIRECTED famotidine famotidine No famotidine [place] 20 mg 20 mg 20 mg Medical tablet TAKE tablet TAKE tablet Group 1 TABLET BY 1 TABLET BY TAKE 1 MOUTH TWICE MOUTH TWICE TABLET BY A DAY A DAY MOUTH TWICE A DAY furosemide furosemide No furosemide [facility] 40 mg 40 mg 40 mg Medical tablet TAKE tablet TAKE tablet Group 1 TABLET BY 1 TABLET BY TAKE 1 MOUTH EVERY MOUTH EVERY TABLET BY OTHER DAY OTHER DAY MOUTH EVERY OTHER DAY glimepiride glimepiride No glimepirid [facility] 4 mg tablet 4 mg tablet e 4 mg Medical tablet Group isosorbide isosorbide No isosorbide [place] mononitrate mononitrate mononitrat Medical ER 30 mg ER 30 mg e ER 30 mg G roup tablet,exte tablet,exte tablet,ext nded nded ended release 24 release 24 release 24 hr TAKE 1 hr TAKE 1 hr TAKE 1 TABLET BY TABLET BY TABLET BY MOUTH EVERY MOUTH EVERY MOUTH DAY IN THE DAY IN THE EVERY DAY MORNING MORNING IN THE MORNING ketorolac ketorolac No ketorolac [facility] 0.5 % eye 0.5 % eye 0.5 % eye Medical drops drops drops Group INSTILL 1 INSTILL 1 INSTILL 1 DROP TWICE DROP TWICE DROP TWICE A DAY INTO A DAY INTO A DAY INTO BOTH EYES BOTH EYES BOTH EYES pioglitazon pioglitazon No pioglitazo [facility] e 15 mg e 15 mg ne 15 mg Medic al tablet TAKE tablet TAKE tablet Group 1 TABLET BY 1 TABLET BY TAKE 1 MOUTH EVERY MOUTH EVERY TABLET BY MORNING MORNING MOUTH EVERY MORNING Symbicort Symbicort No Symbicort [place] 160 mcg-4.5 160 mcg-4.5 160 M edical mcg/actuati mcg/actuati mcg-4.5 Group on HFA on HFA mcg/actuat aerosol aerosol ion HFA inhaler inhaler aerosol TAKE 2 TAKE 2 inhaler PUFFS BY PUFFS BY TAKE 2 MOUTH TWICE MOUTH TWICE PUFFS BY A DAY A DAY MOUTH TWICE A DAY Tradjenta 5 Tradjenta 5 No Tradjenta [facility] mg tablet mg tablet 5 mg Medic al TAKE 1 TAKE 1 tablet Group TABLET BY TABLET BY TAKE 1 MOUTH EVERY MOUTH EVERY TABLET BY DAY DAY MOUTH EVERY DAY atorvastati atorvastati No 1 Q1D atorvastat [facility] n 20 mg n 20 mg in 20 mg Medic al tablet Take tablet Take tablet Group 1 tablet 1 tablet Take 1 every day every day tablet by oral by oral every day route. route. by oral route. azelastine azelastine No azelastine [facility] 137 mcg 137 mcg 137 mcg Medica l (0.1 %) (0.1 %) (0.1 %) Group nasal spray nasal spray nasal aerosol aerosol spray aerosol BD Rut 2nd BD Rut 2nd No BD Rut [facility] Gen Pen Gen Pen 2nd Gen Medica l Needle 32 Needle 32 Pen Needle Group gauge x gauge x 32 gauge x " " " brimonidine brimonidine No brimonidin [facility] 0.2 % eye 0.2 % eye e 0.2 % Me dical drops drops eye drops Group Instill 1 Instill 1 Instill 1 drop into drop into drop into both eyes both eyes both eyes twice a a twice a a twice a a day day day calcium calcium No calcium Stewar d acetate(marjan acetate(marjan acetate(ph Medical sphate sphate osphate Group binders) binders) binders) 667 mg 667 mg 667 mg capsule capsule capsule Take 2 Take 2 Take 2 capsules by capsules by capsules mouth with mouth with by mouth each meal each meal with each meal carvedilol carvedilol No 1 BID carvedilol [facility] 25 mg 25 mg 25 mg Medical tablet Take tablet Take tablet Group 1 tablet 1 tablet Take 1 twice a day twice a day tablet by oral by oral twice a route. route. day by oral route. ciprofloxac ciprofloxac No ciprofloxa [place] in 500 mg in 500 mg ibrahima 500 mg Medical tablet Take tablet Take tablet Group 1 tablet by 1 tablet by Take 1 mouth every mouth every tablet by day. On day. On mouth days of days of every day. Dialysis. Dialysis. On days of Take after Take after Dialysis. Dialysis Dialysis Take after Dialysis COMPOUNDED COMPOUNDED No COMPOUNDED [facility] MEDICATION MEDICATION MEDICATION Medical Cat Dog Per Cat Dog Per Cat Dog Group Allergy Allergy Per Protocol Protocol Allergy Patient Patient Protocol tolerated tolerated Patient injection injection tolerated well and well and injection stayed 30 stayed 30 well and min min stayed 30 afterwards afterwards min to make to make afterwards sure of no sure of no to make adverse adverse sure of no reaction. reaction. adverse reaction. COMPOUNDED COMPOUNDED No COMPOUNDED [facility] MEDICATION MEDICATION MEDICATION Medical cat dog per cat dog per cat dog Group allergy allergy per protocol pt protocol pt allergy tolerated tolerated protocol injection injection pt well and well and tolerated stayed 30 stayed 30 injection min min well and afterwards afterwards stayed 30 to make to make min sure of no sure of no afterwards adverse adverse to make reaction. reaction. sure of no atrevinoRMA atrevinoRMA adverse reaction. atrevinoRM A COMPOUNDED COMPOUNDED No COMPOUNDED [facility] MEDICATION MEDICATION MEDICATION Medical molds, cat, molds, cat, molds, Group dog, horse dog, horse cat, dog, and dust and dust horse and mite per mite per dust mite allergy allergy per protocol pt protocol pt allergy tolerated tolerated protocol injection injection pt well and well and tolerated stayed 30 stayed 30 injection min min well and afterwards afterwards stayed 30 to make to make min sure of no sure of no afterwards adverse adverse to make reaction. reaction. sure of no atrevinoRMA atrevinoRMA adverse reaction. atrevinoRM A COMPOUNDED COMPOUNDED No COMPOUNDED [facility] MEDICATION MEDICATION MEDICATION Medical mold, cat, mold, cat, mold, cat, Group dog, horse, dog, horse, dog, dust mite dust mite horse, per allergy per allergy dust mite protocol pt protocol pt per tolerated tolerated allergy injection injection protocol well, and well, and pt stayed 30 stayed 30 tolerated minutes minutes injection afterwards afterwards well, and to make to make stayed 30 sure of no sure of no minutes adverse adverse afterwards reaction. reaction. to make atrevinoRMA atrevinoRMA sure of no adverse reaction. atrevinoRM A COMPOUNDED COMPOUNDED No COMPOUNDED [facility] MEDICATION MEDICATION MEDICATION Medical Trees, Trees, Trees, Group grass and grass and grass and weeds per weeds per weeds per allergy allergy allergy protocol pt protocol pt protocol tolerated tolerated pt injection injection tolerated well and well and injection stayed 30 stayed 30 well and minutes minutes stayed 30 afterwards afterwards minutes to make to make afterwards sure of no sure of no to make adverse adverse sure of no reaction. reaction. adverse atrevinoRMA atrevinoRMA reaction. atrevinoRM A COMPOUNDED COMPOUNDED No COMPOUNDED [facility] MEDICATION MEDICATION MEDICATION Medical Trees Grass Trees Grass Trees Group Weeds Per Weeds Per Grass Allergen Allergen Weeds Per Protocol Protocol Allergen Patient Patient Protocol brings own brings own Patient medication medication brings own medication COMPOUNDED COMPOUNDED No COMPOUNDED [facility] MEDICATION MEDICATION MEDICATION Medical TGW per TGW per TGW per Group allergy allergy allergy protocol pt protocol pt protocol tolerated tolerated pt injection injection tolerated well and well and injection stayed 30 stayed 30 well and minutes minutes stayed 30 afterwards afterwards minutes to make to make afterwards sure of no sure of no to make adverse adverse sure of no reaction. reaction. adverse atrevinoRMA atrevinoRMA reaction. atrevinoRM A COMPOUNDED COMPOUNDED No COMPOUNDED [facility] MEDICATION MEDICATION MEDICATION Medical TGW per TGW per TGW per Group allergy allergy allergy protocol pt protocol pt protocol tolerated tolerated pt injection injection tolerated well and well and injection stayed 30 stayed 30 well and min min stayed 30 afterwards afterwards min to make to make afterwards sure of no sure of no to make adverse adverse sure of no reaction. reaction. adverse atrevinoRMA atrevinoRMA reaction. atrevinoRM A Dialyvite Dialyvite No Dialyvite [facility] 800 0.8 mg 800 0.8 mg 800 0.8 mg Medical tablet Take tablet Take tablet Group 1 tablet 1 tablet Take 1 every day every day tablet with the with the every day largest largest with the meal meal largest meal epinephrine epinephrine No epinephrin [facility] 0.3 mg/0.3 0.3 mg/0.3 e 0.3 Me dical mL mL mg/0.3 mL Group injection, injection, injection, auto-inject auto-inject auto-injec or Inject 1 or Inject 1 tor Inject pen in the pen in the 1 pen in muscle one muscle one the muscle time as time as one time directed directed as directed famotidine famotidine No 1 BID famotidine [facility] 20 mg 20 mg 20 mg Medical tablet Take tablet Take tablet Group 1 tablet 1 tablet Take 1 twice a day twice a day tablet by oral by oral twice a route. route. day by oral route. furosemide furosemide No furosemide [facility] 40 mg 40 mg 40 mg Medical tablet Take tablet Take tablet Group 1 tablet by 1 tablet by Take 1 mouth every mouth every tablet by other day other day mouth every other day gabapentin gabapentin No 1capsul Q1D gabapentin [facility] 100 mg 100 mg e(s) 100 mg Medical capsule capsule capsule Group Take 1 Take 1 Take 1 capsule capsule capsule every day every day every day by oral by oral by oral route. route. route. glimepiride glimepiride No glimepirid [facility] 4 mg tablet 4 mg tablet e 4 mg Medical tablet Group isosorbide isosorbide No 1 Q1D isosorbide [facility] mononitrate mononitrate mononitrat Medical ER 30 mg ER 30 mg e ER 30 mg G roup tablet,exte tablet,exte tablet,ext nded nded ended release 24 release 24 release 24 hr Take 1 hr Take 1 hr Take 1 tablet tablet tablet every day every day every day by oral by oral by oral route in route in route in the the the morning. morning. morning. ketorolac ketorolac No ketorolac [facility] 0.5 % eye 0.5 % eye 0.5 % eye Medical drops drops drops Group Instill 1 Instill 1 Instill 1 drop twice drop twice drop twice a day to a day to a day to both eyes both eyes both eyes pioglitazon pioglitazon No 1 Q1D pioglitazo [facility] e 15 mg e 15 mg ne 15 mg Medic al tablet Take tablet Take tablet Group 1 tablet 1 tablet Take 1 every day every day tablet by oral by oral every day route in route in by oral the the route in morning. morning. the morning. Symbicort Symbicort No 2puff(s BID Symbicort [facility] 160 mcg-4.5 160 mcg-4.5 ) 160 M edical mcg/actuati mcg/actuati mcg-4.5 Group on HFA on HFA mcg/actuat aerosol aerosol ion HFA inhaler inhaler aerosol Inhale 2 Inhale 2 inhaler puffs twice puffs twice Inhale 2 a day by a day by puffs inhalation inhalation twice a route. route. day by inhalation route. Tradjenta 5 Tradjenta 5 No 1 BID Tradjenta [facility] mg tablet mg tablet 5 mg Medic al Take 1 Take 1 tablet Group tablet tablet Take 1 twice a day twice a day tablet by oral by oral twice a route. route. day by oral route. atorvastati atorvastati No 1 Q1D atorvastat [facility] n 20 mg n 20 mg in 20 mg Medic al tablet Take tablet Take tablet Group 1 tablet 1 tablet Take 1 every day every day tablet by oral by oral every day route. route. by oral route. azelastine azelastine No azelastine [facility] 137 mcg 137 mcg 137 mcg Medica l (0.1 %) (0.1 %) (0.1 %) Group nasal spray nasal spray nasal aerosol aerosol spray aerosol BD Rut 2nd BD Rut 2nd No BD Rut [facility] Gen Pen Gen Pen 2nd Gen Medica l Needle 32 Needle 32 Pen Needle Group gauge x gauge x 32 gauge x " " " brimonidine brimonidine No brimonidin [facility] 0.2 % eye 0.2 % eye e 0.2 % Me dical drops drops eye drops Group Instill 1 Instill 1 Instill 1 drop into drop into drop into both eyes both eyes both eyes twice a a twice a a twice a a day day day calcium calcium No calcium Stewar d acetate(marjan acetate(marjan acetate(ph Medical sphate sphate osphate Group binders) binders) binders) 667 mg 667 mg 667 mg capsule capsule capsule Take 2 Take 2 Take 2 capsules by capsules by capsules mouth with mouth with by mouth each meal each meal with each meal carvedilol carvedilol No 1 BID carvedilol [facility] 25 mg 25 mg 25 mg Medical tablet Take tablet Take tablet Group 1 tablet 1 tablet Take 1 twice a day twice a day tablet by oral by oral twice a route. route. day by oral route. ciprofloxac ciprofloxac No ciprofloxa [facility] in 500 mg in 500 mg ibrahima 500 mg Medical tablet Take tablet Take tablet Group 1 tablet by 1 tablet by Take 1 mouth every mouth every tablet by day. On day. On mouth days of days of every day. Dialysis. Dialysis. On days of Take after Take after Dialysis. Dialysis Dialysis Take after Dialysis COMPOUNDED COMPOUNDED No COMPOUNDED [facility] MEDICATION MEDICATION MEDICATION Medical Trees Grass Trees Grass Trees Group Weeds: Vial Weeds: Vial Grass # 2 Per # 2 Per Weeds: Allergy Allergy Vial # 2 Protocol Protocol Per Patient Patient Allergy brings own brings own Protocol medication medication Patient brings own medication COMPOUNDED COMPOUNDED No COMPOUNDED [place] MEDICATION MEDICATION MEDICATION Medical Cat Dog Per Cat Dog Per Cat Dog Group Allergy Allergy Per Protocol Protocol Allergy Patient Patient Protocol tolerated tolerated Patient injection injection tolerated well and well and injection stayed 30 stayed 30 well and min min stayed 30 afterwards afterwards min to make to make afterwards sure of no sure of no to make adverse adverse sure of no reaction. reaction. adverse reaction. COMPOUNDED COMPOUNDED No COMPOUNDED [facility] MEDICATION MEDICATION MEDICATION Medical cat dog per cat dog per cat dog Group allergy allergy per protocol pt protocol pt allergy tolerated tolerated protocol injection injection pt well and well and tolerated stayed 30 stayed 30 injection min min well and afterwards afterwards stayed 30 to make to make min sure of no sure of no afterwards adverse adverse to make reaction. reaction. sure of no atrevinoRMA atrevinoRMA adverse reaction. atrevinoRM A COMPOUNDED COMPOUNDED No COMPOUNDED [facility] MEDICATION MEDICATION MEDICATION Medical molds, cat, molds, cat, molds, Group dog, horse dog, horse cat, dog, and dust and dust horse and mite per mite per dust mite allergy allergy per protocol pt protocol pt allergy tolerated tolerated protocol injection injection pt well and well and tolerated stayed 30 stayed 30 injection min min well and afterwards afterwards stayed 30 to make to make min sure of no sure of no afterwards adverse adverse to make reaction. reaction. sure of no atrevinoRMA atrevinoRMA adverse reaction. atrevinoRM A COMPOUNDED COMPOUNDED No COMPOUNDED [facility] MEDICATION MEDICATION MEDICATION Medical mold, cat, mold, cat, mold, cat, Group dog, horse, dog, horse, dog, dust mite dust mite horse, per allergy per allergy dust mite protocol pt protocol pt per tolerated tolerated allergy injection injection protocol well, and well, and pt stayed 30 stayed 30 tolerated minutes minutes injection afterwards afterwards well, and to make to make stayed 30 sure of no sure of no minutes adverse adverse afterwards reaction. reaction. to make atrevinoRMA atrevinoRMA sure of no adverse reaction. atrevinoRM A COMPOUNDED COMPOUNDED No COMPOUNDED [facility] MEDICATION MEDICATION MEDICATION Medical Trees, Trees, Trees, Group grass and grass and grass and weeds per weeds per weeds per allergy allergy allergy protocol pt protocol pt protocol tolerated tolerated pt injection injection tolerated well and well and injection stayed 30 stayed 30 well and minutes minutes stayed 30 afterwards afterwards minutes to make to make afterwards sure of no sure of no to make adverse adverse sure of no reaction. reaction. adverse atrevinoRMA atrevinoRMA reaction. atrevinoRM A COMPOUNDED COMPOUNDED No COMPOUNDED [facility] MEDICATION MEDICATION MEDICATION Medical Trees Grass Trees Grass Trees Group Weeds Per Weeds Per Grass Allergen Allergen Weeds Per Protocol Protocol Allergen Patient Patient Protocol brings own brings own Patient medication medication brings own medication COMPOUNDED COMPOUNDED No COMPOUNDED [facility] MEDICATION MEDICATION MEDICATION Medical TGW per TGW per TGW per Group allergy allergy allergy protocol pt protocol pt protocol tolerated tolerated pt injection injection tolerated well and well and injection stayed 30 stayed 30 well and minutes minutes stayed 30 afterwards afterwards minutes to make to make afterwards sure of no sure of no to make adverse adverse sure of no reaction. reaction. adverse atrevinoRMA atrevinoRMA reaction. atrevinoRM A COMPOUNDED COMPOUNDED No COMPOUNDED [facility] MEDICATION MEDICATION MEDICATION Medical TGW per TGW per TGW per Group allergy allergy allergy protocol pt protocol pt protocol tolerated tolerated pt injection injection tolerated well and well and injection stayed 30 stayed 30 well and min min stayed 30 afterwards afterwards min to make to make afterwards sure of no sure of no to make adverse adverse sure of no reaction. reaction. adverse atrevinoRMA atrevinoRMA reaction. atrevinoRM A COMPOUNDED COMPOUNDED No COMPOUNDED [facility] MEDICATION MEDICATION MEDICATION Medical Cat Dog Cat Dog Cat Dog Group Green Vial Green Vial Green Vial Per Allergy Per Allergy Per Protocol Protocol Allergy Patient Patient Protocol tolerated tolerated Patient injection injection tolerated well and well and injection stayed 30 stayed 30 well and min min stayed 30 afterwards afterwards min to make to make afterwards sure of no sure of no to make adverse adverse sure of no reaction. reaction. adverse reaction. Dialyvite Dialyvite No Dialyvite [facility] 800 0.8 mg 800 0.8 mg 800 0.8 mg Medical tablet Take tablet Take tablet Group 1 tablet 1 tablet Take 1 every day every day tablet with the with the every day largest largest with the meal meal largest meal epinephrine epinephrine No epinephrin [facility] 0.3 mg/0.3 0.3 mg/0.3 e 0.3 Me dical mL mL mg/0.3 mL Group injection, injection, injection, auto-inject auto-inject auto-injec or Inject 1 or Inject 1 tor Inject pen in the pen in the 1 pen in muscle one muscle one the muscle time as time as one time directed directed as directed famotidine famotidine No 1 BID famotidine [facility] 20 mg 20 mg 20 mg Medical tablet Take tablet Take tablet Group 1 tablet 1 tablet Take 1 twice a day twice a day tablet by oral by oral twice a route. route. day by oral route. furosemide furosemide No furosemide [facility] 40 mg 40 mg 40 mg Medical tablet Take tablet Take tablet Group 1 tablet by 1 tablet by Take 1 mouth every mouth every tablet by other day other day mouth every other day gabapentin gabapentin No 1capsul Q1D gabapentin [facility] 100 mg 100 mg e(s) 100 mg Medical capsule capsule capsule Group Take 1 Take 1 Take 1 capsule capsule capsule every day every day every day by oral by oral by oral route. route. route. glimepiride glimepiride No glimepirid [facility] 4 mg tablet 4 mg tablet e 4 mg Medical tablet Group isosorbide isosorbide No 1 Q1D isosorbide [facility] mononitrate mononitrate mononitrat Medical ER 30 mg ER 30 mg e ER 30 mg G roup tablet,exte tablet,exte tablet,ext nded nded ended release 24 release 24 release 24 hr Take 1 hr Take 1 hr Take 1 tablet tablet tablet every day every day every day by oral by oral by oral route in route in route in the the the morning. morning. morning. ketorolac ketorolac No ketorolac [facility] 0.5 % eye 0.5 % eye 0.5 % eye Medical drops drops drops Group Instill 1 Instill 1 Instill 1 drop twice drop twice drop twice a day to a day to a day to both eyes both eyes both eyes pioglitazon pioglitazon No 1 Q1D pioglitazo [facility] e 15 mg e 15 mg ne 15 mg Medic al tablet Take tablet Take tablet Group 1 tablet 1 tablet Take 1 every day every day tablet by oral by oral every day route in route in by oral the the route in morning. morning. the morning. Symbicort Symbicort No 2puff(s BID Symbicort [facility] 160 mcg-4.5 160 mcg-4.5 ) 160 M edical mcg/actuati mcg/actuati mcg-4.5 Group on HFA on HFA mcg/actuat aerosol aerosol ion HFA inhaler inhaler aerosol Inhale 2 Inhale 2 inhaler puffs twice puffs twice Inhale 2 a day by a day by puffs inhalation inhalation twice a route. route. day by inhalation route. Tradjenta 5 Tradjenta 5 No 1 BID Tradjenta [facility] mg tablet mg tablet 5 mg Medic al Take 1 Take 1 tablet Group tablet tablet Take 1 twice a day twice a day tablet by oral by oral twice a route. route. day by oral route. atorvastati atorvastati No 1 Q1D atorvastat [facility] n 20 mg n 20 mg in 20 mg Medic al tablet Take tablet Take tablet Group 1 tablet 1 tablet Take 1 every day every day tablet by oral by oral every day route. route. by oral route. azelastine azelastine No azelastine [facility] 137 mcg 137 mcg 137 mcg Medica l (0.1 %) (0.1 %) (0.1 %) Group nasal spray nasal spray nasal aerosol aerosol spray aerosol BD Rut 2nd BD Rut 2nd No BD Rut [facility] Gen Pen Gen Pen 2nd Gen Medica l Needle 32 Needle 32 Pen Needle Group gauge x gauge x 32 gauge x " " " brimonidine brimonidine No brimonidin [facility] 0.2 % eye 0.2 % eye e 0.2 % Me dical drops drops eye drops Group Instill 1 Instill 1 Instill 1 drop into drop into drop into both eyes both eyes both eyes twice a a twice a a twice a a day day day calcium calcium No calcium Stewar d acetate(marjan acetate(marjan acetate(ph Medical sphate sphate osphate Group binders) binders) binders) 667 mg 667 mg 667 mg capsule capsule capsule Take 2 Take 2 Take 2 capsules by capsules by capsules mouth with mouth with by mouth each meal each meal with each meal carvedilol carvedilol No 1 BID carvedilol [facility] 25 mg 25 mg 25 mg Medical tablet Take tablet Take tablet Group 1 tablet 1 tablet Take 1 twice a day twice a day tablet by oral by oral twice a route. route. day by oral route. ciprofloxac ciprofloxac No ciprofloxa [facility] in 500 mg in 500 mg ibrahima 500 mg Medical tablet Take tablet Take tablet Group 1 tablet by 1 tablet by Take 1 mouth every mouth every tablet by day. On day. On mouth days of days of every day. Dialysis. Dialysis. On days of Take after Take after Dialysis. Dialysis Dialysis Take after Dialysis COMPOUNDED COMPOUNDED No COMPOUNDED [facility] MEDICATION MEDICATION MEDICATION Medical Cat Dog Per Cat Dog Per Cat Dog Group Allergy Allergy Per Protocol Protocol Allergy Patient Patient Protocol tolerated tolerated Patient injection injection tolerated well and well and injection stayed 30 stayed 30 well and min min stayed 30 afterwards afterwards min to make to make afterwards sure of no sure of no to make adverse adverse sure of no reaction. reaction. adverse reaction. COMPOUNDED COMPOUNDED No COMPOUNDED [facility] MEDICATION MEDICATION MEDICATION Medical cat dog per cat dog per cat dog Group allergy allergy per protocol pt protocol pt allergy tolerated tolerated protocol injection injection pt well and well and tolerated stayed 30 stayed 30 injection min min well and afterwards afterwards stayed 30 to make to make min sure of no sure of no afterwards adverse adverse to make reaction. reaction. sure of no atrevinoRMA atrevinoRMA adverse reaction. atrevinoRM A COMPOUNDED COMPOUNDED No COMPOUNDED [place] MEDICATION MEDICATION MEDICATION Medical molds, cat, molds, cat, molds, Group dog, horse dog, horse cat, dog, and dust and dust horse and mite per mite per dust mite allergy allergy per protocol pt protocol pt allergy tolerated tolerated protocol injection injection pt well and well and tolerated stayed 30 stayed 30 injection min min well and afterwards afterwards stayed 30 to make to make min sure of no sure of no afterwards adverse adverse to make reaction. reaction. sure of no atrevinoRMA atrevinoRMA adverse reaction. atrevinoRM A COMPOUNDED COMPOUNDED No COMPOUNDED [facility] MEDICATION MEDICATION MEDICATION Medical Trees, Trees, Trees, Group grass and grass and grass and weeds per weeds per weeds per allergy allergy allergy protocol pt protocol pt protocol tolerated tolerated pt injection injection tolerated well and well and injection stayed 30 stayed 30 well and minutes minutes stayed 30 afterwards afterwards minutes to make to make afterwards sure of no sure of no to make adverse adverse sure of no reaction. reaction. adverse atrevinoRMA atrevinoRMA reaction. atrevinoRM A COMPOUNDED COMPOUNDED No COMPOUNDED [place] MEDICATION MEDICATION MEDICATION Medical TGW per TGW per TGW per Group allergy allergy allergy protocol pt protocol pt protocol tolerated tolerated pt injection injection tolerated well and well and injection stayed 30 stayed 30 well and minutes minutes stayed 30 afterwards afterwards minutes to make to make afterwards sure of no sure of no to make adverse adverse sure of no reaction. reaction. adverse atrevinoRMA atrevinoRMA reaction. atrevinoRM A COMPOUNDED COMPOUNDED No COMPOUNDED [place] MEDICATION MEDICATION MEDICATION Medical TGW per TGW per TGW per Group allergy allergy allergy protocol pt protocol pt protocol tolerated tolerated pt injection injection tolerated well and well and injection stayed 30 stayed 30 well and min min stayed 30 afterwards afterwards min to make to make afterwards sure of no sure of no to make adverse adverse sure of no reaction. reaction. adverse atrevinoRMA atrevinoRMA reaction. atrevinoRM A COMPOUNDED COMPOUNDED No COMPOUNDED [facility] MEDICATION MEDICATION MEDICATION Medical Trees Grass Trees Grass Trees Group Weeds: Vial Weeds: Vial Grass # 2 Per # 2 Per Weeds: Allergy Allergy Vial # 2 Protocol Protocol Per Patient Patient Allergy brings own brings own Protocol medication medication Patient brings own medication COMPOUNDED COMPOUNDED No COMPOUNDED [facility] MEDICATION MEDICATION MEDICATION Medical Trees Grass Trees Grass Trees Group Weeds: Vial Weeds: Vial Grass # 2 Per # 2 Per Weeds: Allergy Allergy Vial # 2 Protocol Protocol Per Patient Patient Allergy brings own brings own Protocol medication medication Patient brings own medication COMPOUNDED COMPOUNDED No COMPOUNDED [place] MEDICATION MEDICATION MEDICATION Medical mold, cat, mold, cat, mold, cat, Group dog, horse, dog, horse, dog, dust mite dust mite horse, per allergy per allergy dust mite protocol pt protocol pt per tolerated tolerated allergy injection injection protocol well, and well, and pt stayed 30 stayed 30 tolerated minutes minutes injection afterwards afterwards well, and to make to make stayed 30 sure of no sure of no minutes adverse adverse afterwards reaction. reaction. to make atrevinoRMA atrevinoRMA sure of no adverse reaction. atrevinoRM A COMPOUNDED COMPOUNDED No COMPOUNDED [place] MEDICATION MEDICATION MEDICATION Medical cat dog per cat dog per cat dog Group allergen allergen per protocol protocol allergen protocol COMPOUNDED COMPOUNDED No COMPOUNDED [place] MEDICATION MEDICATION MEDICATION Medical Trees Grass Trees Grass Trees Group Weeds Per Weeds Per Grass Allergen Allergen Weeds Per Protocol Protocol Allergen Patient Patient Protocol brings own brings own Patient medication medication brings own medication COMPOUNDED COMPOUNDED No COMPOUNDED [facility] MEDICATION MEDICATION MEDICATION Medical Cat Dog Cat Dog Cat Dog Group Green Vial Green Vial Green Vial Per Allergy Per Allergy Per Protocol Protocol Allergy Patient Patient Protocol tolerated tolerated Patient injection injection tolerated well and well and injection stayed 30 stayed 30 well and min min stayed 30 afterwards afterwards min to make to make afterwards sure of no sure of no to make adverse adverse sure of no reaction. reaction. adverse reaction. Dialyvite Dialyvite No Dialyvite [facility] 800 0.8 mg 800 0.8 mg 800 0.8 mg Medical tablet Take tablet Take tablet Group 1 tablet 1 tablet Take 1 every day every day tablet with the with the every day largest largest with the meal meal largest meal epinephrine epinephrine No epinephrin [facility] 0.3 mg/0.3 0.3 mg/0.3 e 0.3 Me dical mL mL mg/0.3 mL Group injection, injection, injection, auto-inject auto-inject auto-injec or Inject 1 or Inject 1 tor Inject pen in the pen in the 1 pen in muscle one muscle one the muscle time as time as one time directed directed as directed famotidine famotidine No 1 BID famotidine [facility] 20 mg 20 mg 20 mg Medical tablet Take tablet Take tablet Group 1 tablet 1 tablet Take 1 twice a day twice a day tablet by oral by oral twice a route. route. day by oral route. furosemide furosemide No furosemide [facility] 40 mg 40 mg 40 mg Medical tablet Take tablet Take tablet Group 1 tablet by 1 tablet by Take 1 mouth every mouth every tablet by other day other day mouth every other day gabapentin gabapentin No 1capsul Q1D gabapentin [facility] 100 mg 100 mg e(s) 100 mg Medical capsule capsule capsule Group Take 1 Take 1 Take 1 capsule capsule capsule every day every day every day by oral by oral by oral route. route. route. isosorbide isosorbide No 1 Q1D isosorbide [facility] mononitrate mononitrate mononitrat Medical ER 30 mg ER 30 mg e ER 30 mg G roup tablet,exte tablet,exte tablet,ext nded nded ended release 24 release 24 release 24 hr Take 1 hr Take 1 hr Take 1 tablet tablet tablet every day every day every day by oral by oral by oral route in route in route in the the the morning. morning. morning. ketorolac ketorolac No ketorolac [place] 0.5 % eye 0.5 % eye 0.5 % eye Medical drops drops drops Group Instill 1 Instill 1 Instill 1 drop twice drop twice drop twice a day to a day to a day to both eyes both eyes both eyes Lomotil 2.5 Lomotil 2.5 No 2 Q8H Lomotil [facility] mg-0.025 mg mg-0.025 mg 2.5 M edical tablet Take tablet Take mg-0.025 Group 2 tablets 2 tablets mg tablet every 8 every 8 Take 2 hours by hours by tablets oral route oral route every 8 as needed as needed hours by for 10 for 10 oral route days. For days. For as needed Diarrhea Diarrhea for 10 days. For Diarrhea pioglitazon pioglitazon No 1 Q1D pioglitazo [facility] e 15 mg e 15 mg ne 15 mg Medic al tablet Take tablet Take tablet Group 1 tablet 1 tablet Take 1 every day every day tablet by oral by oral every day route in route in by oral the the route in morning. morning. the morning. Symbicort Symbicort No 2puff(s BID Symbicort [facility] 160 mcg-4.5 160 mcg-4.5 ) 160 M edical mcg/actuati mcg/actuati mcg-4.5 Group on HFA on HFA mcg/actuat aerosol aerosol ion HFA inhaler inhaler aerosol Inhale 2 Inhale 2 inhaler puffs twice puffs twice Inhale 2 a day by a day by puffs inhalation inhalation twice a route. route. day by inhalation route. Tradjenta 5 Tradjenta 5 No 1 BID Tradjenta [facility] mg tablet mg tablet 5 mg Medic al Take 1 Take 1 tablet Group tablet tablet Take 1 twice a day twice a day tablet by oral by oral twice a route. route. day by oral route. acetaminoph acetaminoph No 1 Q4H acetaminop [facility] en 300 en 300 hen 300 Medical mg-codeine mg-codeine mg-codeine Group 30 mg 30 mg 30 mg tablet Take tablet Take tablet 1 tablet 1 tablet Take 1 every 4 every 4 tablet hours by hours by every 4 oral route oral route hours by as needed as needed oral route for 7 days. for 7 days. as needed for 7 days. atorvastati atorvastati No 1 Q1D atorvastat [facility] n 20 mg n 20 mg in 20 mg Medic al tablet Take tablet Take tablet Group 1 tablet 1 tablet Take 1 every day every day tablet by oral by oral every day route. route. by oral route. azelastine azelastine No azelastine [facility] 137 mcg 137 mcg 137 mcg Medica l (0.1 %) (0.1 %) (0.1 %) Group nasal spray nasal spray nasal aerosol aerosol spray aerosol BD Rut 2nd BD Rut 2nd No BD Rut [place] Gen Pen Gen Pen 2nd Gen Medica l Needle 32 Needle 32 Pen Needle Group gauge x gauge x 32 gauge x " " " brimonidine brimonidine No brimonidin [facility] 0.2 % eye 0.2 % eye e 0.2 % Me dical drops drops eye drops Group Instill 1 Instill 1 Instill 1 drop into drop into drop into both eyes both eyes both eyes twice a a twice a a twice a a day day day calcium calcium No calcium Stewar d acetate(marjan acetate(mrajan acetate(ph Medical sphate sphate osphate Group binders) binders) binders) 667 mg 667 mg 667 mg capsule capsule capsule Take 2 Take 2 Take 2 capsules by capsules by capsules mouth with mouth with by mouth each meal each meal with each meal carvedilol carvedilol No 1 BID carvedilol [facility] 25 mg 25 mg 25 mg Medical tablet Take tablet Take tablet Group 1 tablet 1 tablet Take 1 twice a day twice a day tablet by oral by oral twice a route. route. day by oral route. ciprofloxac ciprofloxac No ciprofloxa [facility] in 500 mg in 500 mg ibrahima 500 mg Medical tablet Take tablet Take tablet Group 1 tablet by 1 tablet by Take 1 mouth every mouth every tablet by day. On day. On mouth days of days of every day. Dialysis. Dialysis. On days of Take after Take after Dialysis. Dialysis Dialysis Take after Dialysis COMPOUNDED COMPOUNDED No COMPOUNDED [facility] MEDICATION MEDICATION MEDICATION Medical Cat Dog Per Cat Dog Per Cat Dog Group Allergy Allergy Per Protocol Protocol Allergy Patient Patient Protocol tolerated tolerated Patient injection injection tolerated well and well and injection stayed 30 stayed 30 well and min min stayed 30 afterwards afterwards min to make to make afterwards sure of no sure of no to make adverse adverse sure of no reaction. reaction. adverse reaction. COMPOUNDED COMPOUNDED No COMPOUNDED [facility] MEDICATION MEDICATION MEDICATION Medical cat dog per cat dog per cat dog Group allergy allergy per protocol pt protocol pt allergy tolerated tolerated protocol injection injection pt well and well and tolerated stayed 30 stayed 30 injection min min well and afterwards afterwards stayed 30 to make to make min sure of no sure of no afterwards adverse adverse to make reaction. reaction. sure of no atrevinoRMA atrevinoRMA adverse reaction. atrevinoRM A COMPOUNDED COMPOUNDED No COMPOUNDED [facility] MEDICATION MEDICATION MEDICATION Medical molds, cat, molds, cat, molds, Group dog, horse dog, horse cat, dog, and dust and dust horse and mite per mite per dust mite allergy allergy per protocol pt protocol pt allergy tolerated tolerated protocol injection injection pt well and well and tolerated stayed 30 stayed 30 injection min min well and afterwards afterwards stayed 30 to make to make min sure of no sure of no afterwards adverse adverse to make reaction. reaction. sure of no atrevinoRMA atrevinoRMA adverse reaction. atrevinoRM A COMPOUNDED COMPOUNDED No COMPOUNDED [facility] MEDICATION MEDICATION MEDICATION Medical Trees, Trees, Trees, Group grass and grass and grass and weeds per weeds per weeds per allergy allergy allergy protocol pt protocol pt protocol tolerated tolerated pt injection injection tolerated well and well and injection stayed 30 stayed 30 well and minutes minutes stayed 30 afterwards afterwards minutes to make to make afterwards sure of no sure of no to make adverse adverse sure of no reaction. reaction. adverse atrevinoRMA atrevinoRMA reaction. atrevinoRM A COMPOUNDED COMPOUNDED No COMPOUNDED [facility] MEDICATION MEDICATION MEDICATION Medical TGW per TGW per TGW per Group allergy allergy allergy protocol pt protocol pt protocol tolerated tolerated pt injection injection tolerated well and well and injection stayed 30 stayed 30 well and minutes minutes stayed 30 afterwards afterwards minutes to make to make afterwards sure of no sure of no to make adverse adverse sure of no reaction. reaction. adverse atrevinoRMA atrevinoRMA reaction. atrevinoRM A COMPOUNDED COMPOUNDED No COMPOUNDED [facility] MEDICATION MEDICATION MEDICATION Medical TGW per TGW per TGW per Group allergy allergy allergy protocol pt protocol pt protocol tolerated tolerated pt injection injection tolerated well and well and injection stayed 30 stayed 30 well and min min stayed 30 afterwards afterwards min to make to make afterwards sure of no sure of no to make adverse adverse sure of no reaction. reaction. adverse atrevinoRMA atrevinoRMA reaction. atrevinoRM A COMPOUNDED COMPOUNDED No COMPOUNDED [facility] MEDICATION MEDICATION MEDICATION Medical Trees Grass Trees Grass Trees Group Weeds: Vial Weeds: Vial Grass # 2 Per # 2 Per Weeds: Allergy Allergy Vial # 2 Protocol Protocol Per Patient Patient Allergy brings own brings own Protocol medication medication Patient brings own medication COMPOUNDED COMPOUNDED No COMPOUNDED [place] MEDICATION MEDICATION MEDICATION Medical Trees Grass Trees Grass Trees Group Weeds: Vial Weeds: Vial Grass # 2 Per # 2 Per Weeds: Allergy Allergy Vial # 2 Protocol Protocol Per Patient Patient Allergy brings own brings own Protocol medication medication Patient brings own medication COMPOUNDED COMPOUNDED No COMPOUNDED [facility] MEDICATION MEDICATION MEDICATION Medical mold, cat, mold, cat, mold, cat, Group dog, horse, dog, horse, dog, dust mite dust mite horse, per allergy per allergy dust mite protocol pt protocol pt per tolerated tolerated allergy injection injection protocol well, and well, and pt stayed 30 stayed 30 tolerated minutes minutes injection afterwards afterwards well, and to make to make stayed 30 sure of no sure of no minutes adverse adverse afterwards reaction. reaction. to make atrevinoRMA atrevinoRMA sure of no adverse reaction. atrevinoRM A COMPOUNDED COMPOUNDED No COMPOUNDED [facility] MEDICATION MEDICATION MEDICATION Medical cat dog per cat dog per cat dog Group allergen allergen per protocol protocol allergen protocol COMPOUNDED COMPOUNDED No COMPOUNDED [facility] MEDICATION MEDICATION MEDICATION Medical Trees Grass Trees Grass Trees Group Weeds Per Weeds Per Grass Allergen Allergen Weeds Per Protocol Protocol Allergen Patient Patient Protocol brings own brings own Patient medication medication brings own medication COMPOUNDED COMPOUNDED No COMPOUNDED [place] MEDICATION MEDICATION MEDICATION Medical Cat Dog Cat Dog Cat Dog Group Green Vial Green Vial Green Vial Per Allergy Per Allergy Per Protocol Protocol Allergy Patient Patient Protocol tolerated tolerated Patient injection injection tolerated well and well and injection stayed 30 stayed 30 well and min min stayed 30 afterwards afterwards min to make to make afterwards sure of no sure of no to make adverse adverse sure of no reaction. reaction. adverse reaction. Dialyvite Dialyvite No Dialyvite [facility] 800 0.8 mg 800 0.8 mg 800 0.8 mg Medical tablet Take tablet Take tablet Group 1 tablet 1 tablet Take 1 every day every day tablet with the with the every day largest largest with the meal meal largest meal epinephrine epinephrine No epinephrin [facility] 0.3 mg/0.3 0.3 mg/0.3 e 0.3 Me dical mL mL mg/0.3 mL Group injection, injection, injection, auto-inject auto-inject auto-injec or Inject 1 or Inject 1 tor Inject pen in the pen in the 1 pen in muscle one muscle one the muscle time as time as one time directed directed as directed famotidine famotidine No 1 BID famotidine [facility] 20 mg 20 mg 20 mg Medical tablet Take tablet Take tablet Group 1 tablet 1 tablet Take 1 twice a day twice a day tablet by oral by oral twice a route. route. day by oral route. furosemide furosemide No furosemide [facility] 40 mg 40 mg 40 mg Medical tablet Take tablet Take tablet Group 1 tablet by 1 tablet by Take 1 mouth every mouth every tablet by other day other day mouth every other day gabapentin gabapentin No 1capsul Q1D gabapentin [facility] 100 mg 100 mg e(s) 100 mg Medical capsule capsule capsule Group Take 1 Take 1 Take 1 capsule capsule capsule every day every day every day by oral by oral by oral route. route. route. isosorbide isosorbide No 1 Q1D isosorbide [facility] mononitrate mononitrate mononitrat Medical ER 30 mg ER 30 mg e ER 30 mg G roup tablet,exte tablet,exte tablet,ext nded nded ended release 24 release 24 release 24 hr Take 1 hr Take 1 hr Take 1 tablet tablet tablet every day every day every day by oral by oral by oral route in route in route in the the the morning. morning. morning. ketorolac ketorolac No ketorolac [facility] 0.5 % eye 0.5 % eye 0.5 % eye Medical drops drops drops Group Instill 1 Instill 1 Instill 1 drop twice drop twice drop twice a day to a day to a day to both eyes both eyes both eyes Lomotil 2.5 Lomotil 2.5 No 2 Q8H Lomotil [facility] mg-0.025 mg mg-0.025 mg 2.5 M edical tablet Take tablet Take mg-0.025 Group 2 tablets 2 tablets mg tablet every 8 every 8 Take 2 hours by hours by tablets oral route oral route every 8 as needed as needed hours by for 10 for 10 oral route days. For days. For as needed Diarrhea Diarrhea for 10 days. For Diarrhea pioglitazon pioglitazon No 1 Q1D pioglitazo [facility] e 15 mg e 15 mg ne 15 mg Medic al tablet Take tablet Take tablet Group 1 tablet 1 tablet Take 1 every day every day tablet by oral by oral every day route in route in by oral the the route in morning. morning. the morning. Symbicort Symbicort No 2puff(s BID Symbicort [facility] 160 mcg-4.5 160 mcg-4.5 ) 160 M edical mcg/actuati mcg/actuati mcg-4.5 Group on HFA on HFA mcg/actuat aerosol aerosol ion HFA inhaler inhaler aerosol Inhale 2 Inhale 2 inhaler puffs twice puffs twice Inhale 2 a day by a day by puffs inhalation inhalation twice a route. route. day by inhalation route. Tradjenta 5 Tradjenta 5 No 1 BID Tradjenta [facility] mg tablet mg tablet 5 mg Medic al Take 1 Take 1 tablet Group tablet tablet Take 1 twice a day twice a day tablet by oral by oral twice a route. route. day by oral route. acetaminoph acetaminoph No 1 Q4H acetaminop [facility] en 300 en 300 hen 300 Medical mg-codeine mg-codeine mg-codeine Group 30 mg 30 mg 30 mg tablet Take tablet Take tablet 1 tablet 1 tablet Take 1 every 4 every 4 tablet hours by hours by every 4 oral route oral route hours by as needed as needed oral route for 7 days. for 7 days. as needed for 7 days. atorvastati atorvastati No 1 Q1D atorvastat [facility] n 20 mg n 20 mg in 20 mg Medic al tablet Take tablet Take tablet Group 1 tablet 1 tablet Take 1 every day every day tablet by oral by oral every day route. route. by oral route. azelastine azelastine No azelastine [facility] 137 mcg 137 mcg 137 mcg Medica l (0.1 %) (0.1 %) (0.1 %) Group nasal spray nasal spray nasal aerosol aerosol spray aerosol BD Rut 2nd BD Rut 2nd No BD Rut [place] Gen Pen Gen Pen 2nd Gen Medica l Needle 32 Needle 32 Pen Needle Group gauge x gauge x 32 gauge x " 32" " brimonidine brimonidine No brimonidin [facility] 0.2 % eye 0.2 % eye e 0.2 % Me dical drops drops eye drops Group Instill 1 Instill 1 Instill 1 drop into drop into drop into both eyes both eyes both eyes twice a a twice a a twice a a day day day calcium calcium No calcium Stewar d acetate(marjan acetate(marjan acetate(ph Medical sphate sphate osphate Group binders) binders) binders) 667 mg 667 mg 667 mg capsule capsule capsule Take 2 Take 2 Take 2 capsules by capsules by capsules mouth with mouth with by mouth each meal each meal with each meal carvedilol carvedilol No 1 BID carvedilol [facility] 25 mg 25 mg 25 mg Medical tablet Take tablet Take tablet Group 1 tablet 1 tablet Take 1 twice a day twice a day tablet by oral by oral twice a route. route. day by oral route. ciprofloxac ciprofloxac No ciprofloxa [facility] in 500 mg in 500 mg ibrahima 500 mg Medical tablet Take tablet Take tablet Group 1 tablet by 1 tablet by Take 1 mouth every mouth every tablet by day. On day. On mouth days of days of every day. Dialysis. Dialysis. On days of Take after Take after Dialysis. Dialysis Dialysis Take after Dialysis COMPOUNDED COMPOUNDED No COMPOUNDED [facility] MEDICATION MEDICATION MEDICATION Medical Trees Grass Trees Grass Trees Group Weeds: Vial Weeds: Vial Grass # 2 Per # 2 Per Weeds: Allergy Allergy Vial # 2 Protocol Protocol Per Patient Patient Allergy brings own brings own Protocol medication medication Patient brings own medication COMPOUNDED COMPOUNDED No COMPOUNDED [place] MEDICATION MEDICATION MEDICATION Medical Cat Dog Per Cat Dog Per Cat Dog Group Allergy Allergy Per Protocol Protocol Allergy Patient Patient Protocol tolerated tolerated Patient injection injection tolerated well and well and injection stayed 30 stayed 30 well and min min stayed 30 afterwards afterwards min to make to make afterwards sure of no sure of no to make adverse adverse sure of no reaction. reaction. adverse reaction. COMPOUNDED COMPOUNDED No COMPOUNDED [facility] MEDICATION MEDICATION MEDICATION Medical cat dog per cat dog per cat dog Group allergy allergy per protocol pt protocol pt allergy tolerated tolerated protocol injection injection pt well and well and tolerated stayed 30 stayed 30 injection min min well and afterwards afterwards stayed 30 to make to make min sure of no sure of no afterwards adverse adverse to make reaction. reaction. sure of no atrevinoRMA atrevinoRMA adverse reaction. atrevinoRM A COMPOUNDED COMPOUNDED No COMPOUNDED [facility] MEDICATION MEDICATION MEDICATION Medical Trees Grass Trees Grass Trees Group Weeds: Vial Weeds: Vial Grass # 2 Per # 2 Per Weeds: Allergy Allergy Vial # 2 Protocol Protocol Per Patient Patient Allergy brings own brings own Protocol medication medication Patient brings own medication COMPOUNDED COMPOUNDED No COMPOUNDED [facility] MEDICATION MEDICATION MEDICATION Medical molds, cat, molds, cat, molds, Group dog, horse dog, horse cat, dog, and dust and dust horse and mite per mite per dust mite allergy allergy per protocol pt protocol pt allergy tolerated tolerated protocol injection injection pt well and well and tolerated stayed 30 stayed 30 injection min min well and afterwards afterwards stayed 30 to make to make min sure of no sure of no afterwards adverse adverse to make reaction. reaction. sure of no atrevinoRMA atrevinoRMA adverse reaction. atrevinoRM A COMPOUNDED COMPOUNDED No COMPOUNDED [facility] MEDICATION MEDICATION MEDICATION Medical mold, cat, mold, cat, mold, cat, Group dog, horse, dog, horse, dog, dust mite dust mite horse, per allergy per allergy dust mite protocol pt protocol pt per tolerated tolerated allergy injection injection protocol well, and well, and pt stayed 30 stayed 30 tolerated minutes minutes injection afterwards afterwards well, and to make to make stayed 30 sure of no sure of no minutes adverse adverse afterwards reaction. reaction. to make atrevinoRMA atrevinoRMA sure of no adverse reaction. atrevinoRM A COMPOUNDED COMPOUNDED No COMPOUNDED [facility] MEDICATION MEDICATION MEDICATION Medical Trees, Trees, Trees, Group grass and grass and grass and weeds per weeds per weeds per allergy allergy allergy protocol pt protocol pt protocol tolerated tolerated pt injection injection tolerated well and well and injection stayed 30 stayed 30 well and minutes minutes stayed 30 afterwards afterwards minutes to make to make afterwards sure of no sure of no to make adverse adverse sure of no reaction. reaction. adverse atrevinoRMA atrevinoRMA reaction. atrevinoRM A COMPOUNDED COMPOUNDED No COMPOUNDED [facility] MEDICATION MEDICATION MEDICATION Medical cat dog per cat dog per cat dog Group allergen allergen per protocol protocol allergen protocol COMPOUNDED COMPOUNDED No COMPOUNDED [place] MEDICATION MEDICATION MEDICATION Medical Trees Grass Trees Grass Trees Group Weeds Per Weeds Per Grass Allergen Allergen Weeds Per Protocol Protocol Allergen Patient Patient Protocol brings own brings own Patient medication medication brings own medication COMPOUNDED COMPOUNDED No COMPOUNDED [place] MEDICATION MEDICATION MEDICATION Medical TGW per TGW per TGW per Group allergy allergy allergy protocol pt protocol pt protocol tolerated tolerated pt injection injection tolerated well and well and injection stayed 30 stayed 30 well and minutes minutes stayed 30 afterwards afterwards minutes to make to make afterwards sure of no sure of no to make adverse adverse sure of no reaction. reaction. adverse atrevinoRMA atrevinoRMA reaction. atrevinoRM A COMPOUNDED COMPOUNDED No COMPOUNDED [facility] MEDICATION MEDICATION MEDICATION Medical TGW per TGW per TGW per Group allergy allergy allergy protocol pt protocol pt protocol tolerated tolerated pt injection injection tolerated well and well and injection stayed 30 stayed 30 well and min min stayed 30 afterwards afterwards min to make to make afterwards sure of no sure of no to make adverse adverse sure of no reaction. reaction. adverse atrevinoRMA atrevinoRMA reaction. atrevinoRM A COMPOUNDED COMPOUNDED No COMPOUNDED [facility] MEDICATION MEDICATION MEDICATION Medical Cat Dog Cat Dog Cat Dog Group Green Vial Green Vial Green Vial Per Allergy Per Allergy Per Protocol Protocol Allergy Patient Patient Protocol tolerated tolerated Patient injection injection tolerated well and well and injection stayed 30 stayed 30 well and min min stayed 30 afterwards afterwards min to make to make afterwards sure of no sure of no to make adverse adverse sure of no reaction. reaction. adverse reaction. Dialyvite Dialyvite No Dialyvite [facility] 800 0.8 mg 800 0.8 mg 800 0.8 mg Medical tablet Take tablet Take tablet Group 1 tablet 1 tablet Take 1 every day every day tablet with the with the every day largest largest with the meal meal largest meal epinephrine epinephrine No epinephrin [facility] 0.3 mg/0.3 0.3 mg/0.3 e 0.3 Me dical mL mL mg/0.3 mL Group injection, injection, injection, auto-inject auto-inject auto-injec or Inject 1 or Inject 1 tor Inject pen in the pen in the 1 pen in muscle one muscle one the muscle time as time as one time directed directed as directed famotidine famotidine No 1 BID famotidine [facility] 20 mg 20 mg 20 mg Medical tablet Take tablet Take tablet Group 1 tablet 1 tablet Take 1 twice a day twice a day tablet by oral by oral twice a route. route. day by oral route. furosemide furosemide No furosemide [facility] 40 mg 40 mg 40 mg Medical tablet Take tablet Take tablet Group 1 tablet by 1 tablet by Take 1 mouth every mouth every tablet by other day other day mouth every other day gabapentin gabapentin No 1capsul Q1D gabapentin [facility] 100 mg 100 mg e(s) 100 mg Medical capsule capsule capsule Group Take 1 Take 1 Take 1 capsule capsule capsule every day every day every day by oral by oral by oral route. route. route. isosorbide isosorbide No 1 Q1D isosorbide [facility] mononitrate mononitrate mononitrat Medical ER 30 mg ER 30 mg e ER 30 mg G roup tablet,exte tablet,exte tablet,ext nded nded ended release 24 release 24 release 24 hr Take 1 hr Take 1 hr Take 1 tablet tablet tablet every day every day every day by oral by oral by oral route in route in route in the the the morning. morning. morning. ketorolac ketorolac No ketorolac [facility] 0.5 % eye 0.5 % eye 0.5 % eye Medical drops drops drops Group Instill 1 Instill 1 Instill 1 drop twice drop twice drop twice a day to a day to a day to both eyes both eyes both eyes Lomotil 2.5 Lomotil 2.5 No 2 Q8H Lomotil [facility] mg-0.025 mg mg-0.025 mg 2.5 M edical tablet Take tablet Take mg-0.025 Group 2 tablets 2 tablets mg tablet every 8 every 8 Take 2 hours by hours by tablets oral route oral route every 8 as needed as needed hours by for 10 for 10 oral route days. For days. For as needed Diarrhea Diarrhea for 10 days. For Diarrhea pioglitazon pioglitazon No 1 Q1D pioglitazo [facility] e 15 mg e 15 mg ne 15 mg Medic al tablet Take tablet Take tablet Group 1 tablet 1 tablet Take 1 every day every day tablet by oral by oral every day route in route in by oral the the route in morning. morning. the morning. Symbicort Symbicort No 2puff(s BID Symbicort [facility] 160 mcg-4.5 160 mcg-4.5 ) 160 M edical mcg/actuati mcg/actuati mcg-4.5 Group on HFA on HFA mcg/actuat aerosol aerosol ion HFA inhaler inhaler aerosol Inhale 2 Inhale 2 inhaler puffs twice puffs twice Inhale 2 a day by a day by puffs inhalation inhalation twice a route. route. day by inhalation route. Tradjenta 5 Tradjenta 5 No 1 BID Tradjenta [facility] mg tablet mg tablet 5 mg Medic al Take 1 Take 1 tablet Group tablet tablet Take 1 twice a day twice a day tablet by oral by oral twice a route. route. day by oral route. Adult Low Adult Low No 1 Q1D Adult Low [facility] Dose Dose Dose Medical Aspirin 81 Aspirin 81 Aspirin 81 Group mg mg mg tablet,maru tablet,maru tablet,del yed release yed release ayed Take 1 Take 1 release tablet tablet Take 1 every day every day tablet by oral by oral every day route. route. by oral route. albuterol albuterol No albuterol [facility] sulfate 2.5 sulfate 2.5 sulfate Medical mg/3 mL mg/3 mL 2.5 mg/3 Group (0.083 %) (0.083 %) mL (0.083 solution solution %) for for solution nebulizatio nebulizatio for n USE I n USE I nebulizati VAIL IN VAIL IN on USE I NEBULIZER NEBULIZER VAIL IN EVERY 6 EVERY 6 NEBULIZER HOURS HOURS EVERY 6 NEEDED NEEDED HOURS NEEDED amlodipine amlodipine No amlodipine [facility] 5 mg tablet 5 mg tablet 5 mg M edical TAKE 1 TAKE 1 tablet Group TABLET BY TABLET BY TAKE 1 MOUTH EVERY MOUTH EVERY TABLET BY DAY DAY MOUTH EVERY DAY atorvastati atorvastati No atorvastat [facility] n 20 mg n 20 mg in 20 mg Medic al tablet TAKE tablet TAKE tablet Group 1 TABLET BY 1 TABLET BY TAKE 1 MOUTH EVERY MOUTH EVERY TABLET BY DAY DAY MOUTH EVERY DAY azelastine azelastine No azelastine [facility] 137 mcg 137 mcg 137 mcg Medica l (0.1 %) (0.1 %) (0.1 %) Group nasal spray nasal spray nasal aerosol aerosol spray SPRAY 2 SPRAY 2 aerosol SPRAYS INTO SPRAYS INTO SPRAY 2 EACH EACH SPRAYS NOSTRIL NOSTRIL INTO EACH TWICE A DAY TWICE A DAY NOSTRIL TWICE A DAY Basaglar Basaglar No Basaglar Alexis moser KwikPen KwikPen KwikPen Medica l U-100 U-100 U-100 Group Insulin 100 Insulin 100 Insulin unit/mL (3 unit/mL (3 100 mL) mL) unit/mL (3 subcutaneou subcutaneou mL) s INJECT 10 s INJECT 10 subcutaneo UNITS UNITS us INJECT SUBCUTANEOU SUBCUTANEOU 10 UNITS SLY WITH SLY WITH SUBCUTANEO EACH MEAL EACH MEAL USLY WITH EACH MEAL BD Insulin BD Insulin No BD Insulin [facility] Syringe Syringe Syringe Medica l Ultra-Fine Ultra-Fine Ultra-Fine Group 0.3 mL 31 0.3 mL 31 0.3 mL 31 gauge x gauge x gauge x 11/11" USE 2 11/11" USE 2 11/11" USE TIMES A DAY TIMES A DAY 2 TIMES A DAY BD Rut 2nd BD Rut 2nd No BD Rut [place] Gen Pen Gen Pen 2nd Gen Medica l Needle 32 Needle 32 Pen Needle Group gauge x gauge x 32 gauge x " " " benzonatate benzonatate No benzonatat [facility] 100 mg 100 mg e 100 mg Medical capsule capsule capsule Group TAKE 1 TAKE 1 TAKE 1 CAPSULE BY CAPSULE BY CAPSULE BY MOUTH 3 MOUTH 3 MOUTH 3 TIMES A DAY TIMES A DAY TIMES A NEEDED NEEDED DAY FOR 30 DAYS FOR 30 DAYS NEEDED FOR 30 DAYS calcium calcium No calcium Stewar d acetate(marjan acetate(marjan acetate(ph Medical sphate sphate osphate Group binders) binders) binders) 667 mg 667 mg 667 mg capsule capsule capsule TAKE 2 TAKE 2 TAKE 2 CAPSULES BY CAPSULES BY CAPSULES MOUTH 3 MOUTH 3 BY MOUTH 3 TIMES A DAY TIMES A DAY TIMES A WITH MEALS, WITH MEALS, DAY WITH AND 1 AND 1 MEALS, AND CAPSULE CAPSULE 1 CAPSULE WITH WITH WITH HIGH-PROTEI HIGH-PROTEI HIGH-PROTE N SNACK N SNACK IN SNACK carvedilol carvedilol No carvedilol [facility] 25 mg 25 mg 25 mg Medical tablet TAKE tablet TAKE tablet Group 1 TABLET BY 1 TABLET BY TAKE 1 MOUTH TWICE MOUTH TWICE TABLET BY A DAY A DAY MOUTH TWICE A DAY epinephrine epinephrine No epinephrin [facility] 0.3 mg/0.3 0.3 mg/0.3 e 0.3 Me dical mL mL mg/0.3 mL Group injection, injection, injection, auto-inject auto-inject auto-injec or Inject 1 or Inject 1 tor Inject pen in the pen in the 1 pen in muscle one muscle one the muscle time as time as one time directed directed as directed Epogen Epogen No Epogen [facility] famotidine famotidine No famotidine [facility] 20 mg 20 mg 20 mg Medical tablet TAKE tablet TAKE tablet Group 1 TABLET BY 1 TABLET BY TAKE 1 MOUTH TWICE MOUTH TWICE TABLET BY A DAY A DAY MOUTH TWICE A DAY glimepiride glimepiride No glimepirid [facility] 4 mg tablet 4 mg tablet e 4 mg Medical TAKE 1 TAKE 1 tablet Group TABLET BY TABLET BY TAKE 1 MOUTH TWICE MOUTH TWICE TABLET BY A DAY A DAY MOUTH TWICE A DAY hydralazine hydralazine No hydralazin [facility] 25 mg 25 mg e 25 mg Medical tablet TAKE tablet TAKE tablet Group 1 TABLET BY 1 TABLET BY TAKE 1 MOUTH TWICE MOUTH TWICE TABLET BY A DAY A DAY MOUTH TWICE A DAY hydrocodone hydrocodone No hydrocodon [facility] 5 5 e 5 Medical mg-acetamin mg-acetamin mg-acetami Group ophen 325 ophen 325 nophen 325 mg tablet mg tablet mg tablet TAKE 1 TAKE 1 TAKE 1 TABLET BY TABLET BY TABLET BY MOUTH TWICE MOUTH TWICE MOUTH A DAY A DAY TWICE A NEEDED NEEDED DAY NEEDED isosorbide isosorbide No isosorbide [facility] mononitrate mononitrate mononitrat Medical ER 30 mg ER 30 mg e ER 30 mg G roup tablet,exte tablet,exte tablet,ext nded nded ended release 24 release 24 release 24 hr TAKE 1 hr TAKE 1 hr TAKE 1 TABLET BY TABLET BY TABLET BY MOUTH EVERY MOUTH EVERY MOUTH DAY IN THE DAY IN THE EVERY DAY MORNING MORNING IN THE MORNING ketorolac ketorolac No ketorolac [facility] 0.5 % eye 0.5 % eye 0.5 % eye Medical drops drops drops Group LOCATION: LOCATION: LOCATION: BOTH EYES. BOTH EYES. BOTH EYES. INSTILL ONE INSTILL ONE INSTILL DROP IN DROP IN ONE DROP EACH EYE EACH EYE IN EACH TWICE A DAY TWICE A DAY EYE TWICE A DAY montelukast montelukast No montelukas [facility] 10 mg 10 mg t 10 mg Medical tablet TAKE tablet TAKE tablet Group 1 TABLET BY 1 TABLET BY TAKE 1 MOUTH EVERY MOUTH EVERY TABLET BY DAY FOR 30 DAY FOR 30 MOUTH DAYS DAYS EVERY DAY FOR 30 DAYS pioglitazon pioglitazon No pioglitazo [facility] e 15 mg e 15 mg ne 15 mg Medic al tablet TAKE tablet TAKE tablet Group 1 TABLET BY 1 TABLET BY TAKE 1 MOUTH EVERY MOUTH EVERY TABLET BY DAY DAY MOUTH EVERY DAY promethazin promethazin No promethazi [facility] e 25 mg e 25 mg ne 25 mg Medic al tablet TAKE tablet TAKE tablet Group 1 TABLET BY 1 TABLET BY TAKE 1 MOUTH EVERY MOUTH EVERY TABLET BY 6 HOURS 6 HOURS MOUTH NEEDED FOR NEEDED FOR EVERY 6 NAUSEA NAUSEA HOURS NEEDED FOR NAUSEA Symbicort Symbicort No Symbicort [facility] 160 mcg-4.5 160 mcg-4.5 160 M edical mcg/actuati mcg/actuati mcg-4.5 Group on HFA on HFA mcg/actuat aerosol aerosol ion HFA inhaler inhaler aerosol INHALE 2 INHALE 2 inhaler PUFFS BY PUFFS BY INHALE 2 MOUTH TWICE MOUTH TWICE PUFFS BY DAILY DAILY MOUTH TWICE DAILY Ventolin Ventolin No 2puff(s Q4H Ventolin [facility] HFA 90 HFA 90 ) HFA 90 Medical mcg/actuati mcg/actuati mcg/actuat Group on aerosol on aerosol ion inhaler inhaler aerosol Inhale 2 Inhale 2 inhaler puffs every puffs every Inhale 2 4 hours by 4 hours by puffs inhalation inhalation every 4 route. route. hours by inhalation route. Adult Low Adult Low No 1 Q1D Adult Low [facility] Dose Dose Dose Medical Aspirin 81 Aspirin 81 Aspirin 81 Group mg mg mg tablet,maru tablet,maru tablet,del yed release yed release ayed Take 1 Take 1 release tablet tablet Take 1 every day every day tablet by oral by oral every day route. route. by oral route. albuterol albuterol No albuterol [facility] sulfate 2.5 sulfate 2.5 sulfate Medical mg/3 mL mg/3 mL 2.5 mg/3 Group (0.083 %) (0.083 %) mL (0.083 solution solution %) for for solution nebulizatio nebulizatio for n USE I n USE I nebulizati VAIL IN VAIL IN on USE I NEBULIZER NEBULIZER VAIL IN EVERY 6 EVERY 6 NEBULIZER HOURS HOURS EVERY 6 NEEDED NEEDED HOURS NEEDED amlodipine amlodipine No amlodipine [facility] 5 mg tablet 5 mg tablet 5 mg M edical TAKE 1 TAKE 1 tablet Group TABLET BY TABLET BY TAKE 1 MOUTH EVERY MOUTH EVERY TABLET BY DAY DAY MOUTH EVERY DAY atorvastati atorvastati No atorvastat [facility] n 20 mg n 20 mg in 20 mg Medic al tablet TAKE tablet TAKE tablet Group 1 TABLET BY 1 TABLET BY TAKE 1 MOUTH EVERY MOUTH EVERY TABLET BY DAY DAY MOUTH EVERY DAY azelastine azelastine No azelastine [facility] 137 mcg 137 mcg 137 mcg Medica l (0.1 %) (0.1 %) (0.1 %) Group nasal spray nasal spray nasal aerosol aerosol spray SPRAY 2 SPRAY 2 aerosol SPRAYS INTO SPRAYS INTO SPRAY 2 EACH EACH SPRAYS NOSTRIL NOSTRIL INTO EACH TWICE A DAY TWICE A DAY NOSTRIL TWICE A DAY Basaglar Basaglar No Basaglar Alexis moser KwikPen KwikPen KwikPen Medica l U-100 U-100 U-100 Group Insulin 100 Insulin 100 Insulin unit/mL (3 unit/mL (3 100 mL) mL) unit/mL (3 subcutaneou subcutaneou mL) s INJECT 10 s INJECT 10 subcutaneo UNITS UNITS us INJECT SUBCUTANEOU SUBCUTANEOU 10 UNITS SLY WITH SLY WITH SUBCUTANEO EACH MEAL EACH MEAL USLY WITH EACH MEAL BD Insulin BD Insulin No BD Insulin [facility] Syringe Syringe Syringe Medica l Ultra-Fine Ultra-Fine Ultra-Fine Group 0.3 mL 31 0.3 mL 31 0.3 mL 31 gauge x gauge x gauge x 11/11" USE 2 11/11" USE 2 11/11" USE TIMES A DAY TIMES A DAY 2 TIMES A DAY BD Rut 2nd BD Rut 2nd No BD Rut [place] Gen Pen Gen Pen 2nd Gen Medica l Needle 32 Needle 32 Pen Needle Group gauge x gauge x 32 gauge x " " " benzonatate benzonatate No benzonatat [facility] 100 mg 100 mg e 100 mg Medical capsule capsule capsule Group TAKE 1 TAKE 1 TAKE 1 CAPSULE BY CAPSULE BY CAPSULE BY MOUTH 3 MOUTH 3 MOUTH 3 TIMES A DAY TIMES A DAY TIMES A NEEDED NEEDED DAY FOR 30 DAYS FOR 30 DAYS NEEDED FOR 30 DAYS calcium calcium No calcium Stewar d acetate(marjan acetate(marjan acetate(ph Medical sphate sphate osphate Group binders) binders) binders) 667 mg 667 mg 667 mg capsule capsule capsule TAKE 2 TAKE 2 TAKE 2 CAPSULES BY CAPSULES BY CAPSULES MOUTH 3 MOUTH 3 BY MOUTH 3 TIMES A DAY TIMES A DAY TIMES A WITH MEALS, WITH MEALS, DAY WITH AND 1 AND 1 MEALS, AND CAPSULE CAPSULE 1 CAPSULE WITH WITH WITH HIGH-PROTEI HIGH-PROTEI HIGH-PROTE N SNACK N SNACK IN SNACK carvedilol carvedilol No carvedilol [facility] 25 mg 25 mg 25 mg Medical tablet TAKE tablet TAKE tablet Group 1 TABLET BY 1 TABLET BY TAKE 1 MOUTH TWICE MOUTH TWICE TABLET BY A DAY A DAY MOUTH TWICE A DAY Dialyvite Dialyvite No Dialyvite [facility] 100 mg-1 mg 100 mg-1 mg 100 mg-1 Medical tablet TAKE tablet TAKE mg tablet Group 1 TABLET BY 1 TABLET BY TAKE 1 MOUTH EVERY MOUTH EVERY TABLET BY DAY DAY MOUTH EVERY DAY epinephrine epinephrine No epinephrin [facility] 0.3 mg/0.3 0.3 mg/0.3 e 0.3 Me dical mL mL mg/0.3 mL Group injection, injection, injection, auto-inject auto-inject auto-injec or Inject 1 or Inject 1 tor Inject pen in the pen in the 1 pen in muscle one muscle one the muscle time as time as one time directed directed as directed Epogen Epogen No Epogen [facility] famotidine famotidine No famotidine [facility] 20 mg 20 mg 20 mg Medical tablet TAKE tablet TAKE tablet Group 1 TABLET BY 1 TABLET BY TAKE 1 MOUTH TWICE MOUTH TWICE TABLET BY A DAY A DAY MOUTH TWICE A DAY glimepiride glimepiride No glimepirid [facility] 4 mg tablet 4 mg tablet e 4 mg Medical TAKE 1 TAKE 1 tablet Group TABLET BY TABLET BY TAKE 1 MOUTH TWICE MOUTH TWICE TABLET BY A DAY A DAY MOUTH TWICE A DAY hydralazine hydralazine No hydralazin [facility] 25 mg 25 mg e 25 mg Medical tablet TAKE tablet TAKE tablet Group 1 TABLET BY 1 TABLET BY TAKE 1 MOUTH TWICE MOUTH TWICE TABLET BY A DAY A DAY MOUTH TWICE A DAY hydrocodone hydrocodone No hydrocodon [facility] 5 5 e 5 Medical mg-acetamin mg-acetamin mg-acetami Group ophen 325 ophen 325 nophen 325 mg tablet mg tablet mg tablet TAKE 1 TAKE 1 TAKE 1 TABLET BY TABLET BY TABLET BY MOUTH TWICE MOUTH TWICE MOUTH A DAY A DAY TWICE A NEEDED NEEDED DAY NEEDED isosorbide isosorbide No isosorbide [facility] mononitrate mononitrate mononitrat Medical ER 30 mg ER 30 mg e ER 30 mg G roup tablet,exte tablet,exte tablet,ext nded nded ended release 24 release 24 release 24 hr TAKE 1 hr TAKE 1 hr TAKE 1 TABLET BY TABLET BY TABLET BY MOUTH EVERY MOUTH EVERY MOUTH DAY IN THE DAY IN THE EVERY DAY MORNING MORNING IN THE MORNING ketorolac ketorolac No ketorolac [facility] 0.5 % eye 0.5 % eye 0.5 % eye Medical drops drops drops Group LOCATION: LOCATION: LOCATION: BOTH EYES. BOTH EYES. BOTH EYES. INSTILL ONE INSTILL ONE INSTILL DROP IN DROP IN ONE DROP EACH EYE EACH EYE IN EACH TWICE A DAY TWICE A DAY EYE TWICE A DAY montelukast montelukast No montelukas [facility] 10 mg 10 mg t 10 mg Medical tablet TAKE tablet TAKE tablet Group 1 TABLET BY 1 TABLET BY TAKE 1 MOUTH EVERY MOUTH EVERY TABLET BY DAY FOR 30 DAY FOR 30 MOUTH DAYS DAYS EVERY DAY FOR 30 DAYS pioglitazon pioglitazon No pioglitazo [facility] e 15 mg e 15 mg ne 15 mg Medic al tablet TAKE tablet TAKE tablet Group 1 TABLET BY 1 TABLET BY TAKE 1 MOUTH EVERY MOUTH EVERY TABLET BY DAY DAY MOUTH EVERY DAY promethazin promethazin No promethazi [facility] e 25 mg e 25 mg ne 25 mg Medic al tablet TAKE tablet TAKE tablet Group 1 TABLET BY 1 TABLET BY TAKE 1 MOUTH EVERY MOUTH EVERY TABLET BY 6 HOURS 6 HOURS MOUTH NEEDED FOR NEEDED FOR EVERY 6 NAUSEA NAUSEA HOURS NEEDED FOR NAUSEA Symbicort Symbicort No Symbicort [facility] 160 mcg-4.5 160 mcg-4.5 160 M edical mcg/actuati mcg/actuati mcg-4.5 Group on HFA on HFA mcg/actuat aerosol aerosol ion HFA inhaler inhaler aerosol INHALE 2 INHALE 2 inhaler PUFFS BY PUFFS BY INHALE 2 MOUTH TWICE MOUTH TWICE PUFFS BY DAILY DAILY MOUTH TWICE DAILY Ventolin Ventolin No 2puff(s Q4H Ventolin [facility] HFA 90 HFA 90 ) HFA 90 Medical mcg/actuati mcg/actuati mcg/actuat Group on aerosol on aerosol ion inhaler inhaler aerosol Inhale 2 Inhale 2 inhaler puffs every puffs every Inhale 2 4 hours by 4 hours by puffs inhalation inhalation every 4 route. route. hours by inhalation route. Adult Low Adult Low No 1 Q1D Adult Low [facility] Dose Dose Dose Medical Aspirin 81 Aspirin 81 Aspirin 81 Group mg mg mg tablet,maru tablet,maru tablet,del yed release yed release ayed Take 1 Take 1 release tablet tablet Take 1 every day every day tablet by oral by oral every day route. route. by oral route. albuterol albuterol No albuterol [facility] sulfate 2.5 sulfate 2.5 sulfate Medical mg/3 mL mg/3 mL 2.5 mg/3 Group (0.083 %) (0.083 %) mL (0.083 solution solution %) for for solution nebulizatio nebulizatio for n USE I n USE I nebulizati VAIL IN VAIL IN on USE I NEBULIZER NEBULIZER VAIL IN EVERY 6 EVERY 6 NEBULIZER HOURS HOURS EVERY 6 NEEDED NEEDED HOURS NEEDED albuterol albuterol No albuterol [facility] sulfate HFA sulfate HFA sulfate Medical 90 90 HFA 90 Group mcg/actuati mcg/actuati mcg/actuat on aerosol on aerosol ion inhaler inhaler aerosol INHALE 1 INHALE 1 inhaler PUFF INTO PUFF INTO INHALE 1 THE LUNGS THE LUNGS PUFF INTO EVERY 4 EVERY 4 THE LUNGS HOURS HOURS EVERY 4 NEEDED FOR NEEDED FOR HOURS 90 DAYS 90 DAYS NEEDED FOR 90 DAYS amlodipine amlodipine No amlodipine [facility] 5 mg tablet 5 mg tablet 5 mg M edical TAKE 1 TAKE 1 tablet Group TABLET BY TABLET BY TAKE 1 MOUTH EVERY MOUTH EVERY TABLET BY DAY DAY MOUTH EVERY DAY atorvastati atorvastati No atorvastat [facility] n 20 mg n 20 mg in 20 mg Medic al tablet TAKE tablet TAKE tablet Group 1 TABLET BY 1 TABLET BY TAKE 1 MOUTH EVERY MOUTH EVERY TABLET BY DAY DAY MOUTH EVERY DAY azelastine azelastine No azelastine [facility] 137 mcg 137 mcg 137 mcg Medica l (0.1 %) (0.1 %) (0.1 %) Group nasal spray nasal spray nasal aerosol aerosol spray SPRAY 2 SPRAY 2 aerosol SPRAYS INTO SPRAYS INTO SPRAY 2 EACH EACH SPRAYS NOSTRIL NOSTRIL INTO EACH TWICE A DAY TWICE A DAY NOSTRIL TWICE A DAY Basaglar Basaglar No Basaglar [facility] moser KwikPen KwikPen KwikPen Medica l U-100 U-100 U-100 Group Insulin 100 Insulin 100 Insulin unit/mL (3 unit/mL (3 100 mL) mL) unit/mL (3 subcutaneou subcutaneou mL) s INJECT 10 s INJECT 10 subcutaneo UNITS UNITS us INJECT SUBCUTANEOU SUBCUTANEOU 10 UNITS SLY WITH SLY WITH SUBCUTANEO EACH MEAL EACH MEAL USLY WITH EACH MEAL BD Insulin BD Insulin No BD Insulin [facility] Syringe Syringe Syringe Medica l Ultra-Fine Ultra-Fine Ultra-Fine Group 0.3 mL 31 0.3 mL 31 0.3 mL 31 gauge x gauge x gauge x 11/11" USE 2 11/11" USE 2 11/11" USE TIMES A DAY TIMES A DAY 2 TIMES A DAY BD Rut 2nd BD Rut 2nd No BD Rut [facility] Gen Pen Gen Pen 2nd Gen Medica l Needle 32 Needle 32 Pen Needle Group gauge x gauge x 32 gauge x " " " benzonatate benzonatate No benzonatat [facility] 100 mg 100 mg e 100 mg Medical capsule capsule capsule Group TAKE 1 TAKE 1 TAKE 1 CAPSULE BY CAPSULE BY CAPSULE BY MOUTH 3 MOUTH 3 MOUTH 3 TIMES A DAY TIMES A DAY TIMES A NEEDED NEEDED DAY FOR 30 DAYS FOR 30 DAYS NEEDED FOR 30 DAYS calcium calcium No calcium Stewar d acetate(marjan acetate(marjan acetate(ph Medical sphate sphate osphate Group binders) binders) binders) 667 mg 667 mg 667 mg capsule capsule capsule TAKE 3 TAKE 3 TAKE 3 CAPSULES BY CAPSULES BY CAPSULES MOUTH 3 MOUTH 3 BY MOUTH 3 TIMES A DAY TIMES A DAY TIMES A WITH MEALS WITH MEALS DAY WITH . . MEALS . carvedilol carvedilol No carvedilol [facility] 25 mg 25 mg 25 mg Medical tablet TAKE tablet TAKE tablet Group 1 TABLET BY 1 TABLET BY TAKE 1 MOUTH TWICE MOUTH TWICE TABLET BY A DAY A DAY MOUTH TWICE A DAY Dialyvite Dialyvite No Dialyvite [facility] 100 mg-1 mg 100 mg-1 mg 100 mg-1 Medical tablet TAKE tablet TAKE mg tablet Group 1 TABLET BY 1 TABLET BY TAKE 1 MOUTH EVERY MOUTH EVERY TABLET BY DAY DAY MOUTH EVERY DAY diazepam 5 diazepam 5 No diazepam 5 [facility] mg tablet mg tablet mg tablet Medical TAKE 1 TAKE 1 TAKE 1 Group TABLET TABLET TABLET ORALLY 30 ORALLY 30 ORALLY 30 MINUTES MINUTES MINUTES PRIOR TO PRIOR TO PRIOR TO PROCEDURE 1 PROCEDURE 1 PROCEDURE DAYS DAYS 1 DAYS epinephrine epinephrine No epinephrin [facility] 0.3 mg/0.3 0.3 mg/0.3 e 0.3 Me dical mL mL mg/0.3 mL Group injection, injection, injection, auto-inject auto-inject auto-injec or Inject 1 or Inject 1 tor Inject pen in the pen in the 1 pen in muscle one muscle one the muscle time as time as one time directed directed as directed Epogen Epogen No Epogen [facility] famotidine famotidine No famotidine [facility] 20 mg 20 mg 20 mg Medical tablet TAKE tablet TAKE tablet Group 1 TABLET BY 1 TABLET BY TAKE 1 MOUTH TWICE MOUTH TWICE TABLET BY A DAY A DAY MOUTH TWICE A DAY glimepiride glimepiride No glimepirid [facility] 4 mg tablet 4 mg tablet e 4 mg Medical TAKE 1 TAKE 1 tablet Group TABLET BY TABLET BY TAKE 1 MOUTH TWICE MOUTH TWICE TABLET BY A DAY A DAY MOUTH TWICE A DAY hydralazine hydralazine No hydralazin [facility] 25 mg 25 mg e 25 mg Medical tablet TAKE tablet TAKE tablet Group 1 TABLET BY 1 TABLET BY TAKE 1 MOUTH TWICE MOUTH TWICE TABLET BY A DAY A DAY MOUTH TWICE A DAY hydralazine hydralazine No hydralazin [facility] 50 mg 50 mg e 50 mg Medical tablet TAKE tablet TAKE tablet Group 1 TABLET BY 1 TABLET BY TAKE 1 MOUTH TWICE MOUTH TWICE TABLET BY A DAY FOR A DAY FOR MOUTH 90 DAYS. 90 DAYS. TWICE A DAY FOR 90 DAYS. hydrocodone hydrocodone No hydrocodon [facility] 5 5 e 5 Medical mg-acetamin mg-acetamin mg-acetami Group ophen 325 ophen 325 nophen 325 mg tablet mg tablet mg tablet TAKE 1 TAKE 1 TAKE 1 TABLET BY TABLET BY TABLET BY MOUTH TWICE MOUTH TWICE MOUTH A DAY A DAY TWICE A NEEDED NEEDED DAY NEEDED isosorbide isosorbide No isosorbide [facility] mononitrate mononitrate mononitrat Medical ER 30 mg ER 30 mg e ER 30 mg G roup tablet,exte tablet,exte tablet,ext nded nded ended release 24 release 24 release 24 hr TAKE 1 hr TAKE 1 hr TAKE 1 TABLET BY TABLET BY TABLET BY MOUTH EVERY MOUTH EVERY MOUTH DAY DAY EVERY DAY ketorolac ketorolac No ketorolac [facility] 0.5 % eye 0.5 % eye 0.5 % eye Medical drops drops drops Group LOCATION: LOCATION: LOCATION: BOTH EYES. BOTH EYES. BOTH EYES. INSTILL ONE INSTILL ONE INSTILL DROP IN DROP IN ONE DROP EACH EYE EACH EYE IN EACH TWICE A DAY TWICE A DAY EYE TWICE A DAY montelukast montelukast No montelukas [facility] 10 mg 10 mg t 10 mg Medical tablet TAKE tablet TAKE tablet Group 1 TABLET BY 1 TABLET BY TAKE 1 MOUTH EVERY MOUTH EVERY TABLET BY DAY X 30 DAY X 30 MOUTH DAYS. DAYS. EVERY DAY X 30 DAYS. pioglitazon pioglitazon No pioglitazo [facility] e 15 mg e 15 mg ne 15 mg Medic al tablet TAKE tablet TAKE tablet Group 1 TABLET BY 1 TABLET BY TAKE 1 MOUTH EVERY MOUTH EVERY TABLET BY DAY DAY MOUTH EVERY DAY promethazin promethazin No promethazi [facility] e 25 mg e 25 mg ne 25 mg Medic al tablet TAKE tablet TAKE tablet Group 1 TABLET BY 1 TABLET BY TAKE 1 MOUTH EVERY MOUTH EVERY TABLET BY 6 HOURS 6 HOURS MOUTH NEEDED FOR NEEDED FOR EVERY 6 NAUSEA NAUSEA HOURS NEEDED FOR NAUSEA Symbicort Symbicort No Symbicort [facility] 160 mcg-4.5 160 mcg-4.5 160 M edical mcg/actuati mcg/actuati mcg-4.5 Group on HFA on HFA mcg/actuat aerosol aerosol ion HFA inhaler inhaler aerosol INHALE 2 INHALE 2 inhaler PUFFS BY PUFFS BY INHALE 2 MOUTH TWICE MOUTH TWICE PUFFS BY DAILY DAILY MOUTH TWICE DAILY Adult Low Adult Low No 1 Q1D Adult Low [facility] Dose Dose Dose Medical Aspirin 81 Aspirin 81 Aspirin 81 Group mg mg mg tablet,maru tablet,maru tablet,del yed release yed release ayed Take 1 Take 1 release tablet tablet Take 1 every day every day tablet by oral by oral every day route. route. by oral route. albuterol albuterol No albuterol [facility] sulfate 2.5 sulfate 2.5 sulfate Medical mg/3 mL mg/3 mL 2.5 mg/3 Group (0.083 %) (0.083 %) mL (0.083 solution solution %) for for solution nebulizatio nebulizatio for n USE I n USE I nebulizati VAIL IN VAIL IN on USE I NEBULIZER NEBULIZER VAIL IN EVERY 6 EVERY 6 NEBULIZER HOURS HOURS EVERY 6 NEEDED NEEDED HOURS NEEDED albuterol albuterol No albuterol [facility] sulfate HFA sulfate HFA sulfate Medical 90 90 HFA 90 Group mcg/actuati mcg/actuati mcg/actuat on aerosol on aerosol ion inhaler inhaler aerosol INHALE 1 INHALE 1 inhaler PUFF INTO PUFF INTO INHALE 1 THE LUNGS THE LUNGS PUFF INTO EVERY 4 EVERY 4 THE LUNGS HOURS HOURS EVERY 4 NEEDED FOR NEEDED FOR HOURS 90 DAYS 90 DAYS NEEDED FOR 90 DAYS amlodipine amlodipine No amlodipine [facility] 5 mg tablet 5 mg tablet 5 mg M edical TAKE 1 TAKE 1 tablet Group TABLET BY TABLET BY TAKE 1 MOUTH EVERY MOUTH EVERY TABLET BY DAY DAY MOUTH EVERY DAY atorvastati atorvastati No atorvastat [facility] n 20 mg n 20 mg in 20 mg Medic al tablet TAKE tablet TAKE tablet Group 1 TABLET BY 1 TABLET BY TAKE 1 MOUTH EVERY MOUTH EVERY TABLET BY DAY DAY MOUTH EVERY DAY azelastine azelastine No azelastine [place] 137 mcg 137 mcg 137 mcg Medica l (0.1 %) (0.1 %) (0.1 %) Group nasal spray nasal spray nasal aerosol aerosol spray SPRAY 2 SPRAY 2 aerosol SPRAYS INTO SPRAYS INTO SPRAY 2 EACH EACH SPRAYS NOSTRIL NOSTRIL INTO EACH TWICE A DAY TWICE A DAY NOSTRIL TWICE A DAY Basaglar Basaglar No Basaglar [facility] KwikPen KwikPen KwikPen Medica l U-100 U-100 U-100 Group Insulin 100 Insulin 100 Insulin unit/mL (3 unit/mL (3 100 mL) mL) unit/mL (3 subcutaneou subcutaneou mL) s INJECT 10 s INJECT 10 subcutaneo UNITS UNITS us INJECT SUBCUTANEOU SUBCUTANEOU 10 UNITS SLY WITH SLY WITH SUBCUTANEO EACH MEAL EACH MEAL USLY WITH EACH MEAL BD Insulin BD Insulin No BD Insulin [facility] Syringe Syringe Syringe Medica l Ultra-Fine Ultra-Fine Ultra-Fine Group 0.3 mL 31 0.3 mL 31 0.3 mL 31 gauge x gauge x gauge x 516" USE 2 16" USE 2 16" USE TIMES A DAY TIMES A DAY 2 TIMES A DAY BD Rut 2nd BD Rut 2nd No BD Rut [facility] Gen Pen Gen Pen 2nd Gen Medica l Needle 32 Needle 32 Pen Needle Group gauge x gauge x 32 gauge x " " " benzonatate benzonatate No 1capsul Q8H benzonatat [facility] 100 mg 100 mg e(s) e 100 mg Medical capsule capsule capsule Group Take 1 Take 1 Take 1 capsule capsule capsule every 8 every 8 every 8 hours by hours by hours by oral route oral route oral route as needed as needed as needed for 14 for 14 for 14 days. days. days. calcium calcium No calcium [facility] acetate(marjan acetate(marjan acetate(ph Medical sphate sphate osphate Group binders) binders) binders) 667 mg 667 mg 667 mg capsule capsule capsule TAKE 3 TAKE 3 TAKE 3 CAPSULES BY CAPSULES BY CAPSULES MOUTH 3 MOUTH 3 BY MOUTH 3 TIMES A DAY TIMES A DAY TIMES A WITH MEALS WITH MEALS DAY WITH . . MEALS . carvedilol carvedilol No carvedilol [facility] 25 mg 25 mg 25 mg Medical tablet TAKE tablet TAKE tablet Group 1 TABLET BY 1 TABLET BY TAKE 1 MOUTH TWICE MOUTH TWICE TABLET BY A DAY A DAY MOUTH TWICE A DAY Dialyvite Dialyvite No Dialyvite [place] 100 mg-1 mg 100 mg-1 mg 100 mg-1 Medical tablet TAKE tablet TAKE mg tablet Group 1 TABLET BY 1 TABLET BY TAKE 1 MOUTH EVERY MOUTH EVERY TABLET BY DAY DAY MOUTH EVERY DAY diazepam 5 diazepam 5 No diazepam 5 [facility] mg tablet mg tablet mg tablet Medical TAKE 1 TAKE 1 TAKE 1 Group TABLET TABLET TABLET ORALLY 30 ORALLY 30 ORALLY 30 MINUTES MINUTES MINUTES PRIOR TO PRIOR TO PRIOR TO PROCEDURE 1 PROCEDURE 1 PROCEDURE DAYS DAYS 1 DAYS epinephrine epinephrine No epinephrin [facility] 0.3 mg/0.3 0.3 mg/0.3 e 0.3 Me dical mL mL mg/0.3 mL Group injection, injection, injection, auto-inject auto-inject auto-injec or Inject 1 or Inject 1 tor Inject pen in the pen in the 1 pen in muscle one muscle one the muscle time as time as one time directed directed as directed Epogen Epogen No Epogen [facility] famotidine famotidine No famotidine [facility] 20 mg 20 mg 20 mg Medical tablet TAKE tablet TAKE tablet Group 1 TABLET BY 1 TABLET BY TAKE 1 MOUTH TWICE MOUTH TWICE TABLET BY A DAY A DAY MOUTH TWICE A DAY glimepiride glimepiride No glimepirid [facility] 4 mg tablet 4 mg tablet e 4 mg Medical TAKE 1 TAKE 1 tablet Group TABLET BY TABLET BY TAKE 1 MOUTH TWICE MOUTH TWICE TABLET BY A DAY A DAY MOUTH TWICE A DAY hydralazine hydralazine No hydralazin [facility] 25 mg 25 mg e 25 mg Medical tablet TAKE tablet TAKE tablet Group 1 TABLET BY 1 TABLET BY TAKE 1 MOUTH TWICE MOUTH TWICE TABLET BY A DAY A DAY MOUTH TWICE A DAY hydralazine hydralazine No hydralazin [facility] 50 mg 50 mg e 50 mg Medical tablet TAKE tablet TAKE tablet Group 1 TABLET BY 1 TABLET BY TAKE 1 MOUTH TWICE MOUTH TWICE TABLET BY A DAY FOR A DAY FOR MOUTH 90 DAYS. 90 DAYS. TWICE A DAY FOR 90 DAYS. hydrocodone hydrocodone No hydrocodon [facility] 5 5 e 5 Medical mg-acetamin mg-acetamin mg-acetami Group ophen 325 ophen 325 nophen 325 mg tablet mg tablet mg tablet TAKE 1 TAKE 1 TAKE 1 TABLET BY TABLET BY TABLET BY MOUTH TWICE MOUTH TWICE MOUTH A DAY A DAY TWICE A NEEDED NEEDED DAY NEEDED isosorbide isosorbide No isosorbide [place] mononitrate mononitrate mononitrat Medical ER 30 mg ER 30 mg e ER 30 mg G roup tablet,exte tablet,exte tablet,ext nded nded ended release 24 release 24 release 24 hr TAKE 1 hr TAKE 1 hr TAKE 1 TABLET BY TABLET BY TABLET BY MOUTH EVERY MOUTH EVERY MOUTH DAY DAY EVERY DAY ketorolac ketorolac No ketorolac [facility] 0.5 % eye 0.5 % eye 0.5 % eye Medical drops drops drops Group LOCATION: LOCATION: LOCATION: BOTH EYES. BOTH EYES. BOTH EYES. INSTILL ONE INSTILL ONE INSTILL DROP IN DROP IN ONE DROP EACH EYE EACH EYE IN EACH TWICE A DAY TWICE A DAY EYE TWICE A DAY montelukast montelukast No montelukas [facility] 10 mg 10 mg t 10 mg Medical tablet TAKE tablet TAKE tablet Group 1 TABLET BY 1 TABLET BY TAKE 1 MOUTH EVERY MOUTH EVERY TABLET BY DAY X 30 DAY X 30 MOUTH DAYS. DAYS. EVERY DAY X 30 DAYS. pioglitazon pioglitazon No pioglitazo [facility] e 15 mg e 15 mg ne 15 mg Medic al tablet TAKE tablet TAKE tablet Group 1 TABLET BY 1 TABLET BY TAKE 1 MOUTH EVERY MOUTH EVERY TABLET BY DAY DAY MOUTH EVERY DAY promethazin promethazin No promethazi [facility] e 25 mg e 25 mg ne 25 mg Medic al tablet TAKE tablet TAKE tablet Group 1 TABLET BY 1 TABLET BY TAKE 1 MOUTH EVERY MOUTH EVERY TABLET BY 6 HOURS 6 HOURS MOUTH NEEDED FOR NEEDED FOR EVERY 6 NAUSEA NAUSEA HOURS NEEDED FOR NAUSEA Symbicort Symbicort No Symbicort [facility] 160 mcg-4.5 160 mcg-4.5 160 M edical mcg/actuati mcg/actuati mcg-4.5 Group on HFA on HFA mcg/actuat aerosol aerosol ion HFA inhaler inhaler aerosol INHALE 2 INHALE 2 inhaler PUFFS BY PUFFS BY INHALE 2 MOUTH TWICE MOUTH TWICE PUFFS BY DAILY DAILY MOUTH TWICE DAILY Immunizations Ordered Filled Immunization Date Status Comments [facility] e Immunization Name Name influenza, influenza, 2019-04-11 Completed [facility] injectable, injectable, 00:00:00 Group quadrivalent quadrivalent influenza, influenza, 2019-04-11 Completed [facility] injectable, injectable, 00:00:00 Group quadrivalent quadrivalent influenza, influenza, 2019-04-11 Completed [facility] injectable, injectable, 00:00:00 Group quadrivalent quadrivalent influenza, influenza, 2019-04-11 Completed [facility] injectable, injectable, 00:00:00 Group quadrivalent quadrivalent influenza, influenza, 2019-04-11 Completed [facility] injectable, injectable, 00:00:00 Group quadrivalent quadrivalent influenza, influenza, 2019-04-11 Completed [facility] injectable, injectable, 00:00:00 Group quadrivalent quadrivalent influenza, influenza, 2019-04-11 Completed [facility] injectable, injectable, 00:00:00 Group quadrivalent quadrivalent influenza, influenza, 2019-04-11 Completed [facility] injectable, injectable, 00:00:00 Group quadrivalent quadrivalent influenza, influenza, 2019-04-11 Completed [facility] injectable, injectable, 00:00:00 Group quadrivalent quadrivalent influenza, influenza, 2019-04-11 Completed [facility] injectable, injectable, 00:00:00 Group quadrivalent quadrivalent influenza, influenza, 2019-04-11 Completed [facility] injectable, injectable, 00:00:00 Group quadrivalent quadrivalent influenza, influenza, 2019-04-11 Completed [facility] injectable, injectable, 00:00:00 Group quadrivalent quadrivalent influenza, influenza, 2019-04-11 Completed [facility] injectable, injectable, 00:00:00 Group quadrivalent quadrivalent influenza, influenza, 2019-04-11 Completed [facility] injectable, injectable, 00:00:00 Group quadrivalent quadrivalent pneumococcal pneumococcal 2017-04-13 Completed [facility] conjugate PCV 13 conjugate PCV 13 00:00:00 Gr oup pneumococcal pneumococcal 2017-04-13 Completed [facility] conjugate PCV 13 conjugate PCV 13 00:00:00 Gr oup pneumococcal pneumococcal 2017-04-13 Completed [facility] conjugate PCV 13 conjugate PCV 13 00:00:00 Gr oup pneumococcal pneumococcal 2017-04-13 Completed [facility] conjugate PCV 13 conjugate PCV 13 00:00:00 Gr oup pneumococcal pneumococcal 2017-04-13 Completed [facility] conjugate PCV 13 conjugate PCV 13 00:00:00 Gr oup pneumococcal pneumococcal 2017-04-13 Completed [facility] conjugate PCV 13 conjugate PCV 13 00:00:00 Gr oup pneumococcal pneumococcal 2017-04-13 Completed [facility] conjugate PCV 13 conjugate PCV 13 00:00:00 Gr oup pneumococcal pneumococcal 2017-04-13 Completed [facility] conjugate PCV 13 conjugate PCV 13 00:00:00 Gr oup pneumococcal pneumococcal 2017-04-13 Completed [facility] conjugate PCV 13 conjugate PCV 13 00:00:00 Gr oup pneumococcal pneumococcal 2017-04-13 Completed [facility] conjugate PCV 13 conjugate PCV 13 00:00:00 Gr oup pneumococcal pneumococcal 2017-04-13 Completed [facility] conjugate PCV 13 conjugate PCV 13 00:00:00 Gr oup pneumococcal pneumococcal 2017-04-13 Completed [facility] conjugate PCV 13 conjugate PCV 13 00:00:00 Gr oup pneumococcal pneumococcal 2017-04-13 Completed [facility] conjugate PCV 13 conjugate PCV 13 00:00:00 Gr oup pneumococcal pneumococcal 2017-04-13 Completed [facility] conjugate PCV 13 conjugate PCV 13 00:00:00 Gr oup [facility] COVID-19 Unknown [facility] [place] [id number] Unknown Com[facility] [place] [address] Unknown [facility] [place] [address] Unknown [facility] [place] [address] Unknown [facility] [place] [address] Unknown [facility] [place] [address] Unknown [facility] [place] [address] Unknown Completed [facility] [place] [address] Unknown Com[facility] Vital Signs Vital Name Observation Time Observation Value Comments Source HEIGHT 2023-01-27 07:42:00 162.6 cm WEIGHT 2023-01-27 07:42:00 64.9 kg HEIGHT 2023-01-22 10:00:00 162.6 cm WEIGHT 2023-01-22 10:00:00 68.04 kg HEIGHT 2023-01-27 07:42:00 162.6 cm WEIGHT 2023-01-27 07:42:00 64.9 kg HEIGHT 2023-01-22 10:00:00 162.6 cm WEIGHT 2023-01-22 10:00:00 68.04 kg Systolic blood 2022-06-03 15:11:00 128 mm[Hg] [facility] Diastolic blood 2022-06-03 15:11:00 70 mm[Hg] [facility] Heart rate 2022-06-03 15:11:00 72 /min [facility] Body temperature 2022-06-03 15:11:00 36.83 Brenda [facility] Respiratory rate 2022-06-03 15:11:00 18 /min [facility] Body height 2022-06-03 15:11:00 162.6 cm [facility] Body weight 2022-06-03 15:11:00 67.132 kg [facility] BMI 2022-06-03 15:11:00 25.40 kg/m2 [facility] HEIGHT 2022-05-26 20:09:00 162.6 cm WEIGHT 2022-05-26 20:09:00 68.947 kg HEIGHT 2022-05-26 20:09:00 162.6 cm WEIGHT 2022-05-26 20:09:00 68.947 kg Systolic blood 2022-01-27 15:36:00 188 mm[Hg] [facility] Diastolic blood 2022-01-27 15:36:00 70 mm[Hg] [facility] Heart rate 2022-01-27 15:36:00 77 /min [facility] Respiratory rate 2022-01-27 15:36:00 20 /min [facility] [place] Body height 2022-01-27 15:36:00 162.6 cm [facility] Body weight 2022-01-27 15:36:00 67.722 kg [facility] BMI 2022-01-27 15:36:00 25.63 kg/m2 [facility] BP Diastolic 2021-12-31 00:00:00 78 mm[Hg] [facility] Height 2021-12-31 00:00:00 64 [in_i] [facility] BMI (Body Mass 2021-12-31 00:00:00 24.4 kg/m2 [facility] BP Systolic 2021-12-31 00:00:00 118 mm[Hg] [facility] Body Weight 2021-12-31 00:00:00 142 [lb_av] [facility] BP Diastolic 2021-12-17 00:00:00 68 mm[Hg] [facility] Height 2021-12-17 00:00:00 64 [in_i] [facility] BMI (Body Mass 2021-12-17 00:00:00 24.4 kg/m2 [facility] BP Systolic 2021-12-17 00:00:00 130 mm[Hg] [facility] Body Weight 2021-12-17 00:00:00 142 [lb_av] [facility] BP Diastolic 2021-11-07 00:00:00 72 mm[Hg] [facility] Height 2021-11-07 00:00:00 64 [in_i] [facility] BMI (Body Mass 2021-11-07 00:00:00 24.4 kg/m2 [facility] BP Systolic 2021-11-07 00:00:00 128 mm[Hg] [facility] Body Weight 2021-11-07 00:00:00 142 [lb_av] [facility] BP Diastolic 2021-10-29 00:00:00 70 mm[Hg] [facility] Height 2021-10-29 00:00:00 64 [in_i] [facility] BMI (Body Mass 2021-10-29 00:00:00 24.3 kg/m2 [facility] BP Systolic 2021-10-29 00:00:00 124 mm[Hg] [facility] Body Weight 2021-10-29 00:00:00 141.6 [lb_av] [facility] BP Diastolic 2021-01-29 00:00:00 82 mm[Hg] [facility] Height 2021-01-29 00:00:00 64 [in_i] [facility] BP Systolic 2021-01-29 00:00:00 134 mm[Hg] [facility] BP Diastolic 2021-01-28 00:00:00 76 mm[Hg] [facility] Height 2021-01-28 00:00:00 64 [in_i] [facility] BMI (Body Mass 2021-01-28 00:00:00 26.2 kg/m2 [facility] BP Systolic 2021-01-28 00:00:00 126 mm[Hg] [facility] Body Weight 2021-01-28 00:00:00 152.4 [lb_av] [facility] BP Diastolic 2021-01-21 00:00:00 76 mm[Hg] [facility] Height 2021-01-21 00:00:00 64 [in_i] [facility] BP Systolic 2021-01-21 00:00:00 130 mm[Hg] [facility] BP Diastolic 2021-01-10 00:00:00 76 mm[Hg] [facility] Height 2021-01-10 00:00:00 64 [in_i] [facility] BMI (Body Mass 2021-01-10 00:00:00 25.4 kg/m2 [facility] BP Systolic 2021-01-10 00:00:00 130 mm[Hg] [facility] Body Weight 2021-01-10 00:00:00 148 [lb_av] [facility] BP Diastolic 2020-12-18 00:00:00 68 mm[Hg] [facility] Height 2020-12-18 00:00:00 64 [in_i] [facility] BMI (Body Mass 2020-12-18 00:00:00 23.9 kg/m2 [facility] BP Systolic 2020-12-18 00:00:00 124 mm[Hg] [facility] Body Weight 2020-12-18 00:00:00 139.2 [lb_av] [facility] Diastolic blood 2023-01-27 12:25:00 62 mm[Hg] [facility] Heart rate 2023-01-27 12:25:00 64 /min [facility] Body temperature 2023-01-27 12:25:00 36.06 Brenda [facility] Respiratory rate 2023-01-27 12:25:00 18 /min [facility] Oxygen saturation in 2023-01-27 12:25:00 99 /min [facility] Arterial blood by Medical Ce nter Pulse oximetry Systolic blood 2023-01-27 12:25:00 140 mm[Hg] [facility] Body height 2023-01-27 07:42:00 162.6 cm [facility] Body weight 2023-01-27 07:42:00 64.9 kg [facility] BMI 2023-01-27 07:42:00 24.56 kg/m2 [facility] Systolic blood 2022-12-04 15:50:00 119 mm[Hg] [facility] pressure Diastolic blood 2022-12-04 15:50:00 55 mm[Hg] [facility] pressure Heart rate 2022-12-04 15:50:00 80 /min [facility] Respiratory rate 2022-12-04 15:50:00 16 /min [facility] Oxygen saturation in 2022-12-04 15:50:00 93 /min [facility] Arterial blood by Pulse oximetry Body temperature 2022-12-04 14:35:00 37 Brenda [facility] Body height 2022-12-04 12:04:00 162.6 cm [facility] Body weight 2022-12-04 12:04:00 69.174 kg [facility] BMI 2022-12-04 12:04:00 26.18 kg/m2 [facility] Weight 2016-02-15 19:15:00 [facility] Heart Rate 2016-02-15 19:15:00 [facility] Diastolic (mm Hg) 2016-02-15 19:15:00 [facility] Systolic (mm Hg) 2016-02-15 19:15:00 [facility] [place] Weight 2015-11-01 16:00:00 [facility] Heart Rate 2015-11-01 16:00:00 [facility] Diastolic (mm Hg) 2015-11-01 16:00:00 [facility] [place] Systolic (mm Hg) 2015-11-01 16:00:00 [facility] [place] Procedures Procedure Date / Time Performing Clinician Source Performed XR CERVICAL SPINE 2 OR 3 2023-03-12 18:34:10 Tamar Jimenez [facility] VW POCT-GLUCOSE METER 2023-01-27 13:34:00 Lillie, [facility] POCT-GLUCOSE METER 2023-01-27 11:49:00 Lillie, [facility] POCT-GLUCOSE METER 2023-01-27 11:10:00 Lillie, [facility] POCT-GLUCOSE METER 2023-01-27 10:15:00 Lillie, [facility] REPORT OF PROCEDURE - 2023-01-27 10:14:02 Lillie, [facility] ENDOSCOPY URL Center ENTEROSCOPY, BALLOON, 2023-01-27 08:33:00 Lillie, [facility] UPPER SMALL INTESTINE, Center USING OVERTUBE ENTEROSCOPY, WITH ARGON 2023-01-27 08:33:00 Lillie, [facility] PLASMA COAGULATION Center POTASSIUM-STAT LAB 2023-01-27 08:21:00 Shawn Ritchie [facility] [place] POCT-GLUCOSE METER 2023-01-27 07:44:00 Lillie, [facility] XR CERVICAL SPINE 2 OR 3 2022-12-11 19:16:49 Tamar Jimenez [facility] VW ANESTHESIA PERIPHERAL 2022-12-04 16:00:40 Shane Mckeon [facility] BLOCK Elfrida POC GLUCOSE 2022-12-04 14:39:00 Mario [facility] REVISION, ARTERIOVENOUS 2022-12-04 14:01:00 [facility] GRAFT, WITH ANGIOGRAPHY POC GLUCOSE 2022-12-04 12:22:00 [facility] POC GLUCOSE 2022-11-20 15:41:00 [facility] [place] < 1 HOUR 2022-11-20 15:26:00 [facility] FISTULOGRAPHY,POSSIBLE 2022-11-20 14:48:00 [facility] ANGIOPLASTY,POSSIBLE STENT POC GLUCOSE 2022-11-20 14:21:00 [facility] BASIC METABOLIC PANEL 2022-11-20 14:01:00 [facility] CBC WITH PLATELET AND 2022-11-20 14:01:00 [facility] DIFFERENTIAL ESTIMATED GFR 2022-11-20 14:01:00 [facility] XR CERVICAL SPINE 2 OR 3 2022-10-30 18:16:34 [facility] VW XR CERVICAL SPINE 2 OR 3 2022-09-25 18:38:35 [facility] VW POC GLUCOSE 2022-09-11 13:20:00 [facility] BASIC METABOLIC PANEL 2022-09-11 09:48:00 [facility] CBC WITH PLATELET AND 2022-09-11 09:48:00 [facility] DIFFERENTIAL ESTIMATED GFR 2022-09-11 09:48:00 [facility] POC GLUCOSE 2022-09-11 09:23:00 [facility] POC GLUCOSE 2022-09-11 01:43:00 [facility] COVID-19 QUALITATIVE 2022-09-10 22:29:00 [facility] RT-PCR POC GLUCOSE 2022-09-10 22:00:00 [facility] HEPATITIS B SURFACE 2022-09-10 17:41:00 [facility] ANTIGEN HEPATITIS B SURFACE AB, 2022-09-10 17:41:00 [facility] QUANTITATIVE POC GLUCOSE 2022-09-10 16:48:00 [facility] HEMODIALYSIS 2022-09-10 15:20:26 [facility] POC GLUCOSE 2022-09-10 12:42:00 [facility] COMPREHENSIVE METABOLIC 2022-09-10 11:00:00 Deja Leblanc [facility] PANEL CBC WITH PLATELET AND 2022-09-10 11:00:00 [facility] DIFFERENTIAL ESTIMATED GFR 2022-09-10 11:00:00 [facility] sp[facility] POC GLUCOSE 2022-09-10 07:17:00 [facility] POC GLUCOSE 2022-09-10 02:54:00 [facility] POC GLUCOSE 2022-09-09 21:29:00 [facility] POC GLUCOSE 2022-09-09 20:16:00 [facility] POC GLUCOSE 2022-09-09 19:48:00 [facility] POC GLUCOSE 2022-09-09 19:31:00 [facility] POC GLUCOSE 2022-09-09 18:34:00 [facility] OR [place] < 1 HOUR 2022-09-09 17:45:00 [facility] [place] AN ELECTIVE 2022-09-09 12:56:00 [facility] ENDOTRACHEAL AIRWAY DISCECTOMY, CERVICAL, 2022-09-09 12:37:00 [facility] WITH FUSION, ANTERIOR APPROACH BONE MARROW ASPIRATION & 2022-09-09 12:37:00 [facility] TRANSPLANTATION W/ OR W/O BONE GRAFTING ABO AND RH CONFIRMATION 2022-09-09 12:15:00 [facility] BY PROTOCOL ESTIMATED GFR 2022-09-09 12:07:00 [facility] 2022-09-09 12:06:00 [facility] POC PANEL 2022-09-09 12:06:00 [facility] TYPE AND SCREEN 2022-09-09 12:00:00 [facility] ECG PRE/POST OP 2022-08-12 19:02:15 [facility] CBC WITH PLATELET AND 2022-08-12 18:06:00 Tamar Jimenez [facility] DIFFERENTIAL PARTIAL THROMBOPLASTIN 2022-08-12 18:06:00 Tamar Jimenez [facility] TIME (PTT) PROTHROMBIN TIME WITH INR 2022-08-12 18:06:00 Tamar Jimenez [facility] TYPE AND SCREEN 2022-08-12 18:06:00 [facility] HEMOGLOBIN A1C 2022-08-12 18:06:00 [facility] SMEAR REVIEW 2022-08-12 18:06:00 Tamar Jimenez [facility] EXTERNAL PROVIDER RECORDS 2022-07-10 06:01:00 Doctor Unassigned, No [facility] AUTHORIZATION TO RELEASE 2022-06-03 06:01:00 Doctor Unassigned, No [facility] PHI TO [facility] PREPARE RBC 2022-05-28 23:54:00 Jordon Tejeda [facility] MISCELLANEOUS LAB ORDER 2022-05-28 13:16:00 [facility] CBC (HEMOGRAM ONLY) 2022-05-27 17:09:00 [facility] POCT-GLUCOSE METER 2022-05-27 14:17:00 [facility] TRANSFUSE LEUKO-REDUCED 2022-05-27 14:06:00 Elmo Devine [facility] RED BLOOD CELLS Center TRANSFUSE LEUKO-REDUCED 2022-05-27 12:37:00 Elmo Devine [facility] RED BLOOD CELLS Center HEPATITIS B SURFACE 2022-05-27 12:11:00 Elmo Devine [facility] ANTIGEN [place] HEPATITIS B SURFACE 2022-05-27 12:11:00 Elmo Devine [facility] ANTIBODY [place] HEMODIALYSIS INPATIENT 2022-05-27 11:07:00 Elmo Devine [facility] POCT-GLUCOSE METER 2022-05-27 09:31:00 Daniel [facility] HEMOGLOBIN A1C 2022-05-27 04:32:00 IleanaJordon bray [facility] CBC W/PLT COUNT & AUTO 2022-05-27 04:32:00 IleanaJordon bray [place] [facility] DIFFERENTIAL Center CBC W/PLT COUNT & AUTO 2022-05-27 04:32:00 IleanaJordon bray [facility] DIFFERENTIAL Center COMPREHENSIVE METABOLIC 2022-05-27 02:32:00 Jordon Tejeda [facility] PANEL Center HEMOGLOBIN AND HEMATOCRIT 2022-05-27 02:32:00 IleanaJordon bray I [facility] CTA ABDOMEN & PELVIS 2022-05-27 00:33:00 Venus Orr [facility] SARS-COV2/RT-PCR ([facility] & 2022-05-27 00:15:00 Darshan Tejedahiyuri Ojeda [facility] REF LABS) Center CBC W/PLT COUNT & AUTO 2022-05-26 22:13:00 Venus Orr [facility] DIFFERENTIAL Center COMPREHENSIVE METABOLIC 2022-05-26 22:13:00 Venus Orr [facility] PANEL [place] PROTHROMBIN TIME/INR 2022-05-26 22:13:00 Venus Orr [facility] TYPE AND SCREEN, 2022-05-26 22:13:00 Venus Orr [facility] AUTOMATED Center CBC W/PLT COUNT & AUTO 2022-05-26 22:13:[address] [facility] XR CHEST PA OR AP 1 VIEW 2022-05-26 20:25:00 Venus Orr nasra [facility] IN DEPT Center CBC W/PLT COUNT & AUTO 2022-04-16 12:40:00 Marie Arredondo [facility] DIFFERENTIAL [place] LACTATE DEHYDROGENASE 2022-04-16 12:40:00 ArredondoMarie [facility] ([facility]) Center CBC W/PLT COUNT & AUTO 2022-04-16 12:40:00 Marie Arredondo [facility] DIFFERENTIAL Center COMPREHENSIVE METABOLIC 2022-04-16 04:30:00 Marie Arredondo [facility] PANEL [place] MAGNESIUM 2022-04-16 04:30:00 [facility] PHOSPHORUS 2022-04-16 04:30:00 [facility] CBC W/PLT COUNT & AUTO 2022-04-16 04:30:00 [facility] CBC W/PLT COUNT & AUTO 2022-04-16 04:30:00 [facility] EGD, WITH HEMORRHAGE 2022-04-15 11:30:00 Jacques Serra [facility] CBC W/PLT COUNT & AUTO 2022-04-15 03:40:00 [facility] BASIC METABOLIC PANEL 2022-04-15 03:40:00 [facility] CBC W/PLT COUNT & AUTO 2022-04-15 03:40:00 [facility] HEPATITIS B SURFACE 2022-04-14 13:00:00 [facility] CBC W/PLT COUNT & AUTO 2022-04-14 09:00:00 [facility] CBC W/PLT COUNT & AUTO 2022-04-14 09:00:00 [facility] ABORH, MANUAL 2022-04-14 08:05:00 [facility] CBC W/PLT COUNT & AUTO 2022-04-14 03:45:00 [facility] COMPREHENSIVE METABOLIC 2022-04-14 03:45:00 [facility] MAGNESIUM 2022-04-14 03:45:00 [facility] PHOSPHORUS 2022-04-14 03:45:00 [facility] TROPONIN I 2022-04-14 03:45:00 [facility] CBC W/PLT COUNT & AUTO 2022-04-14 03:45:00 [facility] TYPE AND SCREEN, 2022-04-14 03:30:00 [facility] AUTOMATED Center PERMANENT LAB REPORT - 2022-04-14 00:00:00 ProviderRosalie [facility] SCAN Scanning Center MRI SPINE EXTERNAL STUDY 2022-04-09 17:30:01 [facility] MRI SPINE EXTERNAL STUDY 2022-04-09 17:15:17 [facility] Low level established 2022-01-14 00:00:00 [facility] patient office visit XR, chest, 2 view 2021-12-31 00:00:00 [facility] Low level established 2021-09-02 00:00:00 [facility] patient office visit Low level established 2021-07-09 00:00:00 [facility] patient office visit Low level new patient 2021-03-06 00:00:00 [facility] office visit X-ray of ankle, AP and 2021-03-06 00:00:00 [facility] lateral views XR, femur, 2 or more view 2021-01-29 00:00:[facility] XR, tibia + fibula, 2 2021-01-29 00:00:00 [facility] XR, knee, 3 view 2021-01-29 00:00:00 [facility] XR, ankle, 3 or more view 2021-01-29 00:00:00 [facility] XR, foot, 3 or more view 2021-01-29 00:00:00 [facility] XR, hip + pelvis, 2021-01-29 00:00:00 [facility] Colonoscopy 2017-12-08 00:00:00 [facility] Procedure on Skin [facility] Other [facility] Cataract Surgery [facility] Back Surgery [facility] Total Knee [facility]placement [facility] Arthroscopic/knee [facility] Hysterectomy [facility] Procedure on Foot [facility] Plan of Care Planned Activity Planned Date Details Comments Source Future Scheduled Test 2024-01-[address] [facility] (12+) [code = Tobacco Cessation Counseling and Screening (12+)] Future Scheduled Test 2024-01-[address] [facility] 00:00:00 [facility] Screening (12+) [code = Tobacco Cessation Counseling and Screening (12+)] Future Scheduled Test 2023-04-03 Screening for [facility] 14:15:19 malignant neoplasm of Hospit al colon (procedure) [code = 076949416] Future Scheduled Test 2023-04-03 Screening for [facility] 14:15:19 malignant neoplasm of Hospit al colon (procedure) [code = 105620511] Future Scheduled Test 2023-04-03 DIABETES: RETINAL EYE [facility] 14:15:19 EXAM [code = DIABETES: Hospi amy RETINAL EYE EXAM] Future Scheduled Test 2023-04-03 DIABETIC FOOT EXAM [facility] 14:15:19 [code = DIABETIC FOOT Hospit al EXAM] Future Scheduled Test 2023-04-03 BREAST CANCER [facility] 14:15:19 SCREENING [code = Hospital BREAST CANCER SCREENING] Future Scheduled Test 2023-04-03 Screening for [facility] 14:15:19 malignant neoplasm of Hospit al colon (procedure) [code = 488426617] Future Scheduled Test 2023-04-03 SHINGLES VACCINES (1 [facility] 14:15:19 of 2) [code = SHINGLES Hospi amy VACCINES (1 of 2)] Future Scheduled Test 2023-04-03 Screening for [facility] 14:15:19 malignant neoplasm of Hospit al colon (procedure) [code = 580680833] Future Scheduled Test 2023-04-03 Screening for [facility] 14:15:19 malignant neoplasm of Hospit al colon (procedure) [code = 667623379] Future Scheduled Test 2023-04-03 COVID-19 VACCINE (4 - [facility] 14:15:19 Moderna series) [code Hospit al = COVID-19 VACCINE (4 - Moderna series)] Future Scheduled Test 2023-04-03 INFLUENZA VACCINE (#1) [facility] 14:15:19 [code = INFLUENZA Hospital VACCINE (#1)] Future Scheduled Test 2023-03-16 Screening for [facility] 15:35:55 malignant neoplasm of Hospit al colon (procedure) [code = 983645926] Future Scheduled Test 2023-03-16 Screening for [facility] 15:35:55 malignant neoplasm of Hospit al colon (procedure) [code = 106521220] Future Scheduled Test 2023-03-16 DIABETES: RETINAL EYE [facility] 15:35:55 EXAM [code = DIABETES: Hospi amy RETINAL EYE EXAM] Future Scheduled Test 2023-03-16 DIABETIC FOOT EXAM [facility] 15:35:55 [code = DIABETIC FOOT Hospit al EXAM] Future Scheduled Test 2023-03-16 BREAST CANCER [facility] 15:35:55 SCREENING [code = Hospital BREAST CANCER SCREENING] Future Scheduled Test 2023-03-16 Screening for [facility] 15:35:55 malignant neoplasm of Hospit al colon (procedure) [code = 150977593] Future Scheduled Test 2023-03-16 SHINGLES VACCINES (1 [facility] 15:35:55 of 2) [code = SHINGLES Hospi amy VACCINES (1 of 2)] Future Scheduled Test 2023-03-16 Screening for [facility] 15:35:55 malignant neoplasm of Hospit al colon (procedure) [code = 735370700] Future Scheduled Test 2023-03-16 Screening for [facility] 15:35:55 malignant neoplasm of Hospit al colon (procedure) [code = 031198830] Future Scheduled Test 2023-03-16 COVID-19 VACCINE (4 - [facility] 15:35:55 Moderna series) [code Hospit al = COVID-19 VACCINE (4 - Moderna series)] Future Scheduled Test 2023-03-16 INFLUENZA VACCINE (#1) [facility] 15:35:55 [code = INFLUENZA Hospital VACCINE (#1)] Future Scheduled Test 2023-03-16 Screening for [facility] 15:35:55 malignant neoplasm of Hospit al colon (procedure) [code = 217874878] Future Scheduled Test 2023-03-16 Screening for [facility] 15:35:55 malignant neoplasm of Hospit al colon (procedure) [code = 596104405] Future Scheduled Test 2023-03-16 DIABETES: RETINAL EYE [facility] 15:35:55 EXAM [code = DIABETES: Hospi amy RETINAL EYE EXAM] Future Scheduled Test 2023-03-16 DIABETIC FOOT EXAM [facility] 15:35:55 [code = DIABETIC FOOT Hospit al EXAM] Future Scheduled Test 2023-03-16 BREAST CANCER [facility] 15:35:55 SCREENING [code = Hospital BREAST CANCER SCREENING] Future Scheduled Test 2023-03-16 Screening for [facility] 15:35:55 malignant neoplasm of Hospit al colon (procedure) [code = 821702506] Future Scheduled Test 2023-03-16 SHINGLES VACCINES (1 [facility] 15:35:55 of 2) [code = SHINGLES Hospi amy VACCINES (1 of 2)] Future Scheduled Test 2023-03-16 Screening for [facility] 15:35:55 malignant neoplasm of Hospit al colon (procedure) [code = 355525788] Future Scheduled Test 2023-03-16 Screening for [facility] 15:35:55 malignant neoplasm of Hospit al colon (procedure) [code = 903025363] Future Scheduled Test 2023-03-16 COVID-19 VACCINE (4 - [facility] 15:35:55 Moderna series) [code Hospit al = COVID-19 VACCINE (4 - Moderna series)] Future Scheduled Test 2023-03-16 INFLUENZA VACCINE (#1) [facility] 15:35:55 [code = INFLUENZA Hospital VACCINE (#1)] Future Scheduled Test 2023-02-27 Influenza Vaccine (#1) [facility] 00:00:00 [code = Influenza Medical Ce nter Vaccine (#1)] Future Scheduled Test 2023-02-27 Influenza Vaccine (#1) [facility] 00:00:00 [code = Influenza Medical Ce nter Vaccine (#1)] Future Scheduled Test 2022-11-[address] [facility] 00:00:00 [facility] Medical Center (procedure) [code = 84041822] Future Scheduled Test 2022-11-[address] [facility] 00:00:00 [facility] Center (procedure) [code = 35636302] Future Scheduled Test 2022-06-[address] [facility] 00:00:00 (12+) [code = Medical Center DEPRESSION SCREENING (12+)] Future Scheduled Test 2022-06-29 FALLS RISK SCREENING [facility] 00:00:00 [code = FALLS RISK Medical C enter SCREENING] Future Scheduled Test 2022-06-[address] [facility] 00:00:00 (12+) [code = Medical Center DEPRESSION SCREENING (12+)] Future Scheduled Test 2022-06-29 FALLS RISK SCREENING [facility] 00:00:00 [code = FALLS RISK Medical C enter SCREENING] Diagnostic Test 2021-12-31 vitamin D, 25-hydroxy, [facility]ending 00:00:00 total, serum [code = Group vitamin D, 25-hydroxy, total, serum] Diagnostic Test 2021-12-31 vitamin B12 + folate, [facility] Pending 00:00:00 serum or blood [code = Group vitamin B12 + folate, serum or blood] Diagnostic Test 2021-12-31 TSH + free T4, serum [facility] Pending 00:00:00 [code = TSH + free T4, Group serum] Diagnostic Test 2021-12-31 CBC w/ auto diff [code [facility] 00:00:00 = CBC w/ auto diff] Group Diagnostic Test 2021-12-31 HbA1c (hemoglobin [facility] Pending 00:00:00 A1c), blood [code = Group HbA1c (hemoglobin A1c), blood] Diagnostic Test 2021-12-31 iron + total [facility] Pending 00:00:00 iron-binding capacity Group (TIBC), serum [code = iron + total iron-binding capacity (TIBC), serum] Future Scheduled Test 2021-10-21 COVID-19 VACCINE (4 - [facility] 00:00:00 Booster for [facility] series) [code = COVID-19 VACCINE (4 - Booster for Moderna series)] Future Scheduled Test 2021-10-21 COVID-19 VACCINE (4 - [facility] 00:00:00 Booster for Modern[facility] Medical Center series) [code = COVID-19 VACCINE (4 - Booster for Moderna series)] Future Scheduled Test 2015-04-[address] [facility] 00:00:00 WELLNESS (YEAR 2 or Medical Center FIRST YEAR if no IPPE) [code = MEDICARE ANNUAL WELLNESS (YEAR 2 or FIRST YEAR if no IPPE)] Future Scheduled Test 2015-04-[address] [facility] 00:00:00 WELLNESS (YEAR 2 or Medical Center FIRST YEAR if no IPPE) [code = MEDICARE ANNUAL WELLNESS (YEAR 2 or FIRST YEAR if no IPPE)] Future Scheduled Test 1999 SHINGLES VACCINES ([address] [facility] 00:00:00 of 2) [code = SHINGLES Medic al Center VACCINES (1 of 2)] Future Scheduled Test 1999 SHINGLES VACCINES ([address] [facility] 00:00:00 of 2) [code = SHINGLES Medic al Center VACCINES (1 of 2)] Future Scheduled Test 1968 DTAP/TDAP/TD VACCINES [facility] 00:00:00 (1 - Tdap) [code = Medical C enter DTAP/TDAP/TD VACCINES (1 - Tdap)] Future Scheduled Test 1968 DTAP/TDAP/TD VACCINES [facility] 00:00:00 (1 - Tdap) [code = Medical C enter DTAP/TDAP/TD VACCINES (1 - Tdap)] Future Scheduled Test 1967 HEPATITIS C SCREENING [facility] 00:00:00 [code = HEPATITIS C Medical Center SCREENING] Future Scheduled Test 1967 HEPATITIS C SCREENING [facility] 00:00:00 [code = HEPATITIS C Medical Center SCREENING] Future Scheduled Test 1959 DIABETIC EYE EXAM [facility] 00:00:00 [code = DIABETIC EYE Medical Center EXAM] Future Scheduled Test 1959 Diabetic foot [facility] examination Medical Center (regime/therapy) [code = 061563250] Future Scheduled Test 1959 Urine screening for [facility] 00:00:00 protein (procedure) Medical Center [code = 193718600] Future Scheduled Test 1959 DIABETIC EYE EXAM [facility] 00:00:00 [code = DIABETIC EYE Medical Center EXAM] Future Scheduled Test 1959 Diabetic foot [facility] 00:[facility]:00 examination Medical Center (regime/therapy) [code = 990974901] Future Scheduled Test 1959 Urine screening for [facility] 00:00:00 protein (procedure) Medical Center [code = 252120938] Future Scheduled Test 1949 [facility]:00 malignant neoplasm of Medica l Center breast (procedure) [code = 468121656] Future Scheduled Test [address] [facility] 00:00:00 (combo) [code = CT Medical C enter Colonography (combo)] Future Scheduled Test 1949 [facility] 00:[facility]:00 malignant neoplasm of Medica l Center colon (procedure) [code = 879577182] Future Scheduled Test 1949 [facility] 00:[facility]:00 malignant neoplasm of Medica l Center colon (procedure) [code = 456481760] Future Scheduled Test 1949 DXA SCAN [code = DXA [facility] 00:00:00 SCAN] [facility] Future Scheduled Test 1949 [facility] 00:[facility]:00 malignant neoplasm of Medica l Center colon (procedure) [code = 894073711] Future Scheduled Test 1949 [facility]ening [facility] 00:00:00 malignant neoplasm of Medica l Center colon (procedure) [code = 541525730] Future Scheduled Test 1949 Sigmoidoscopy [code = [facility] 00:00:00 Sigmoidoscopy] Medical Karolyn andrade Future Scheduled Test 1949 Screening for [facility] 00:00:00 malignant neoplasm of Medica l Center breast (procedure) [code = 328050996] Future Scheduled Test [address] [facility] 00:00:00 (combo) [code = CT Medical C enter Colonography (combo)] Future Scheduled Test 1949 [facility]ening [facility] 00:00:00 malignant neoplasm of Medica l Center colon (procedure) [code = 706578732] Future Scheduled Test 1949 Screening for [facility] 00:00:00 malignant neoplasm of Medica l Center colon (procedure) [code = 311901711] Future Scheduled Test 1949 DXA SCAN [code = DXA [facility] 00:00:00 SCAN] [facility] Future Scheduled Test 1949 [facility] 00:00:00 malignant neoplasm of Medica l Center colon (procedure) [code = 581698474] Future Scheduled Test 1949 Screening for [facility] 00:00:00 malignant neoplasm of Medica l Center colon (procedure) [code = 793592414] Future Scheduled Test 1949 Sigmoidoscopy [code = [facility] 00:00:00 Sigmoidoscopy] Medical [facility] Encounters Start End Encounter Admission Attending Care Care Encounter Source Date/Time Date/Time Type Type Clinicians Facility Department ID 2022-09-23 Outpatient SALVATORE MOREIRA [facility] Surgery [id number] SLE 16:44:52 MAN 2021-10-29 Inpatient MYRANDA RAMIREZ [id number] [facility] 10:48:00 [facility] [id number] [facility] 2021-04-22 Outpatient MYRANDA WHITMORE [id number] [facility] 17:42:51 [id number] [facility] 2021-04-22 Outpatient [facility] MYRANDA [id number] [facility] 16:57:20 [id number] [facility] 2021-04-22 Outpatient MYRANDA MYRANDA [id number] [facility] 15:33:37 -[id number] [facility] 2021-04-18 Inpatient MYRANDA RAMIREZ [id number] [facility] 14:03:00 [facility] [id number] [facility] 2021-04-09 Inpatient JOHANN MENDOZA [id number] [facility] 15:15:00 [id number] [facility] 2021-02-24 Inpatient MCSETXm M[facility] [id number] [facility] 19:06:00 04 2023-03-12 2023-03-12 Office Tamar Jimenez 1.2.840.1 [id number] Methodi 13:20:00 14:09:38 Visit Alejo 52891.1.[address] 3.430.2.7 Hospit a .3.810851 l .8 2023-03-12 2023-03-12 Office Tamar Jimenez 1.2.840.1 [id number] Methodi 13:20:00 14:09:38 Visit Alejo 29408.1.[address] 3.430.2.7 Hospit a .3.289418 l .8 2023-03-12 2023-03-12 Outpatient TAMAR JIMENEZ [facility] [id number] [place] 00:00:00 00:00:[address] 2023-01-27 2023-01-27 Outpatient SALVATORE MOREIRA [facility] Surgery [id number] SLE 06:52:00 14:25:00 MAN 2023-01-27 2023-01-27 Hospital SALVATORE Moreira, [facility] [id number] 06:52:00 14:25:00 Encounter [facility] 2023-01-27 2023-01-27 Anesthesia Erma [facility] [id number] 08:43:00 10:13:00 Event Shwan pettit [facility] 2023-01-27 2023-01-27 Surgery Lillie, [facility] [id number] 08:00:00 09:00:00 [facility] 2023-01-27 2023-01-27 Travel [facility] [id number] [facility] 00:[facility]00 00:00:00 [facility] 2023-01-22 2023-01-22 Outpatient SALVATORE MOREIRA [facility] SLE [id number] SLE 00:00:00 00:00:00 MAN 2023-01-22 2023-01-22 Travel [facility] [id number] [facility] 00:[facility]00 00:00:00 [facility] 2022-12-11 2022-12-11 Office Tamar Jimenez 1.2.840.1 [id number] Methodi 14:00:00 14:34:47 Visit Alejo 79470.1.[address] 3.430.2.7 Hospit a .3.043889 l .8 2022-12-11 2022-12-11 Office Tamar Jimenez 1.2.840.1 [id number] Methodi 14:00:00 14:34:47 Visit Alejo 52163.1.[address] 3.430.2.7 Hospit a .3.466502 l 8 2022-12-11 2022-12-11 Outpatient TAMAR JIMENEZ [facility] [id number] [place] 00:00:00 00:00:[address] 2022-12-04 2022-12-04 [facility] 1.2.840.1 [id number] Methodi 06:03:00 11:10:00 Encounter Balaji Francis 57718.1.[address] 3.430.2.7 Hospit a .3.596884 l .8 2022-12-04 2022-12-04 [facility], 1.2.840.1 [id number] Methodi 06:03:00 11:10:00 Encounter Balaji Francis 74673.1.[address] 3.430.2.7 Hospit a .3.270341 l .8 2022-12-04 2022-12-04 Surgery [facility], 1.2.840.1 [id number] Methodi 08:51:00 10:32:00 Balaji Francis 08019.1.1 724 s t 3.430.2.7 Hospit a .3.369142 l .8 2022-12-04 2022-12-04 Surgery [facility], 1.2.840.1 [id number] Methodi 08:51:00 10:32:00 Balaji Francis 08444.1.1 724 s t 3.430.2.7 Hospit a .3.069628 l .8 2022-12-04 2022-12-04 Anesthesia [facility], 1.2.840.1 [id number] Methodi 09:01:00 09:37:00 Event Shane 01537.1.[address] Christopher 3.430.2.7 Ho spita .3.061038 l .8 2022-12-04 2022-12-04 Anesthesia Mckeon, 1.2.840.1 [id number] Methodi 09:01:00 09:37:00 Event Shane 42105.1.[address] Christopher 3.430.2.7 Ho spita .3.309907 l .8 2022-12-04 2022-12-04 Travel 1.2.840.1 1.2.831.133 [id number] Methodi 00:00:00 00:00:[address] 3.430.2.7 0.2.7.3.698 Ho spita .3.494461 084.8 l .8 2022-12-04 2022-12-04 Travel 1.2.840.1 1.2.493.186 [id number] [id number] Methodi 00:00:00 00:00:[address] 3.430.2.7 0.2.7.3.698 spita .3.090251 084.8 l .8 2022-11-21 2022-11-21 Prep for Anupama, 1.2.840.1 [id number] 2099 [id number] Methodi 00:00:00 00:00:00 Surgery Jose 35257.1.[address] 3.430.2.7 Hospit a .3.388306 l .8 2022-11-21 2022-11-21 Prep for [facility], 1.2.840.1 [id number] 2099 [id number] Methodi 00:00:00 00:00:00 Surgery Jose 32145.1.[address] 3.430.2.7 Hospit a .3.568806 l .8 2022-11-20 2022-11-20 [facility], 1.2.840.1 [id number] Methodi 08:29:00 12:00:00 Encounter Balaji Francis 40710.1.[address] 3.430.2.7 Hospit a .3.203155 l .8 2022-11-20 2022-11-20 [facility], 1.2.840.1 [id number] Methodi 08:29:00 12:00:00 Encounter Balaji Francis 27021.1.[address] 3.430.2.7 Hospit a .3.210958 l .8 2022-11-20 2022-11-20 [facility], 1.2.840.1 [id number] Methodi 10:07:00 11:18:00 Balaji Francis 58062.1.1 063 s t 3.430.2.7 Hospit a .3.339132 l .8 2022-11-20 2022-11-20 Surgery Naoum, 1.2.840.1 [id number] Methodi 10:07:00 11:18:00 Balaji Francis 59729.1.1 063 s t 3.430.2.7 Hospit a .3.741216 l .8 2022-11-20 2022-11-20 Anesthesia Lis, 1.2.840.1 [id number] Methodi 09:48:00 10:36:00 Event Jeremy W. 83742.1.[address] 3.430.2.7 Hospit a .3.850766 l .8 2022-11-20 2022-11-20 Anesthesia Lis, 1.2.840.1 [id number] 021 [id number] Methodi 09:48:00 10:36:00 Event Jeremy W. 57153.1.[address] 3.430.2.7 Hospit a .3.217752 l .8 2022-11-20 2022-11-20 Travel 1.2.840.1 1.2.496.571 8051 [id number] Methodi 00:00:00 00:00:[address] 3.430.2.7 0.2.7.3.698 Ho spita .3.724811 084.8 l .8 2022-11-20 2022-11-20 Travel 1.2.840.1 1.2.418.892 6915 [id number] Methodi 00:00:00 00:00:[address] 3.430.2.7 0.2.7.3.698 Ho spita .3.233709 084.8 l .8 2022-11-18 2022-11-18 Office Naoum, 1.2.840.1 [id number] Methodi 13:30:00 13:52:11 Visit Balaji Francis 23970.1.1 094 s t 3.430.2.7 Hospit a .3.847120 l .8 2022-11-18 2022-11-18 Office Naoum, 1.2.840.1 [id number] Methodi 13:30:00 13:52:11 Visit Balaji Francis 11325.1.1 094 s t 3.430.2.7 Hospit a .3.683348 l .8 2022-11-18 2022-11-18 Prep for Anupama, 1.2.840.1 [id number] 2099 [id number] Methodi 00:00:00 00:00:00 Surgery Jose 63423.1.[address] 3.430.2.7 Hospit a .3.678343 l .8 2022-11-18 2022-11-18 Travel 1.2.840.1 1.2.271.621 3018 [id number] Methodi 00:00:00 00:00:[address] 3.430.2.7 0.2.7.3.698 Ho spita .3.800017 084.8 l .8 2022-11-18 2022-11-18 Prep for Anupama, 1.2.840.1 [id number] 2099 [id number] Methodi 00:00:00 00:00:00 Surgery Jose 02250.1.[address] 3.430.2.7 Hospit a .3.274778 l .8 2022-11-18 2022-11-18 Travel 1.2.840.1 1.2.400.730 5749 [id number] Methodi 00:00:00 00:00:[address] 3.430.2.7 0.2.7.3.698 Ho spita .3.664770 084.8 l .8 2022-10-30 2022-10-30 Office Tamar Jimenez 1.2.840.1 [id number] Methodi 13:20:00 14:01:20 Visit Alejo 56158.1.[address] 3.430.2.7 Hospit a .3.284760 l .8 2022-10-30 2022-10-30 Office Tamar Jimenez 1.2.840.1 [id number] Methodi 13:20:00 14:01:20 Visit Alejo 75266.1.[address] 3.430.2.7 Hospit a .3.981018 l .8 2022-10-30 2022-10-30 Travel 1.2.840.1 1.2.131.550 8042 [id number] Methodi 00:00:00 00:00:[address] 3.430.2.7 0.2.7.3.698 Ho spita .3.834201 084.8 l .8 2022-10-30 2022-10-30 Outpatient TAMAR JIMENEZ [facility] 161 [id number] [place] 00:00:00 00:00:[address] 2022-10-30 2022-10-30 Travel 1.2.840.1 1.2.730.071 4453 [id number] Methodi 00:00:00 00:00:[address] 3.430.2.7 0.2.7.3.698 Ho spita .3.389012 084.8 l .8 2022-09-25 2022-09-25 Office Barbara Tamar 1.2.840.1 [id number] 21 [id number] Methodi 13:20:00 14:05:50 Visit Alejo 22835.1.[address] 3.430.2.7 Hospit a .3.759940 l .8 2022-09-25 2022-09-25 Office Barbara Tamar 1.2.840.1 [id number] 21 [id number] Methodi 13:20:00 14:05:50 Visit Alejo 80919.1.[address] 3.430.2.7 Hospit a .3.951946 l .8 2022-09-25 2022-09-25 Travel 1.2.840.1 1.2.346.692 3406 [id number] Methodi 00:00:00 00:00:[address] 3.430.2.7 0.2.7.3.698 Ho spita .3.842333 084.8 l .8 2022-09-25 2022-09-25 Outpatient BARBARATAMAR [facility] 733 [id number] [place] 00:00:00 00:00:[address] 2022-09-25 2022-09-25 Travel 1.2.840.1 1.2.482.979 0293 367815 Methodi 00:00:00 00:00:[address] 3.430.2.7 0.2.7.3.698 Ho spita .3.657256 084.8 l .8 2022-09-09 2022-09-11 [facility] 1.2.840.1 104 [id number] Methodi 05:42:00 09:15:00 Encounter [place] 94007.1.[address] 3.430.2.7 Hospit a .3.817633 l .8 2022-09-09 2022-09-11 [facility] 1.2.840.1 104 [id number] Methodi 05:42:00 09:15:00 Encounter [place] [address]127.1.[address] 3.430.2.7 Hospit a .3.645230 l .8 2022-09-09 2022-09-09 Anesthesia Wendy Montalvo A. 1.2.840.1 10 [id number] Methodi 07:37:00 13:39:00 Event Sam, Roula 58747.1.[address] 3.430.2.7 Hospit a .3.829437 l .8 2022-09-09 2022-09-09 Anesthesia SelvinWendy gillespie A. 1.2.840.1 10 [id number] Methodi 07:37:00 13:39:00 Event Sam, Roula 07111.1.[address] 3.430.2.7 Hospit a .3.166244 l .8 2022-09-09 2022-09-09 Surgery Barbara, Tamar 1.2.840.1 [id number] Methodi 07:30:00 12:00:[address] 3.430.2.7 Hospit a .3.323158 l .8 2022-09-09 2022-09-09 Surgery Barbara, Tamar 1.2.840.1 [id number] Methodi 07:30:00 12:00:[address] 3.430.2.7 Hospit a .3.509245 l .8 2022-09-09 2022-09-09 Travel 1.2.840.1 1.2.309.612 1629 194072 Methodi 00:00:00 00:00:[address] 3.430.2.7 0.2.7.3.698 Ho spita .3.118157 084.8 l .8 2022-09-09 2022-09-09 Travel 1.2.840.1 1.2.978.941 5828 802452 Methodi 00:00:00 00:00:[address] 3.430.2.7 0.2.7.3.698 Ho spita .3.817144 084.8 l .8 2022-09-08 2022-09-08 Abstract Phil, 1.2.840.1 [id number] 2099 355349 Methodi 00:00:00 00:00:[address] 3.430.2.7 Hospit a .3.059033 l .8 2022-09-08 2022-09-08 Abstract Phil, 1.2.840.1 [id number] 2099 876649 Methodi 00:00:00 00:00:[address] 3.430.2.7 Hospit a .3.544865 l .8 2022-08-28 2022-08-28 Transcribe Barbara, Tamar 1.2.840.1 [id number] Methodi 00:00:00 00:00:00 Orders Alejo 97690.1.[address] 3.430.2.7 Hospit a .3.829874 l .8 2022-08-28 2022-08-28 Travel 1.2.840.1 1.2.205.758 6996 470276 Methodi 00:00:00 00:00:[address] 3.430.2.7 0.2.7.3.698 Ho spita .3.364659 084.8 l .8 2022-08-28 2022-08-28 Transcribe Tamar Jimenez 1.2.840.1 [id number] Methodi 00:00:00 00:00:00 Orders Alejo 61899.1.[address] 3.430.2.7 Hospit a .3.171529 l .8 2022-08-28 2022-08-28 Travel 1.2.840.1 1.2.358.817 6595 744985 Methodi 00:00:00 00:00:[address] 3.430.2.7 0.2.7.3.698 Ho spita .3.812162 084.8 l .8 2022-08-21 2022-08-21 Office Tamar Jimenez 1.2.840.1 [id number] 21 [id number] Methodi 13:20:00 14:02:07 Visit Alejo 32675.1.[address] 3.430.2.7 Hospit a .3.088943 l .8 2022-08-21 2022-08-21 Office Tamar Jimenze 1.2.840.1 [id number] 21 [id number] Methodi 13:20:00 14:02:07 Visit Alejo 81259.1.[address] 3.430.2.7 Hospit a .3.618809 l .8 2022-08-21 2022-08-21 Travel 1.2.840.1 1.2.867.509 0149 712326 Methodi 00:00:00 00:00:[address] 3.430.2.7 0.2.7.3.698 Ho spita .3.066125 084.8 l .8 2022-08-21 2022-08-21 Travel 1.2.840.1 1.2.238.848 3539 148464 Methodi 00:00:00 00:00:[address] 3.430.2.7 0.2.7.3.698 Ho spita .3.679631 084.8 l .8 2022-08-19 2022-08-19 Documentat Provider, 1.2.840.1 [id number] 2 [id number] Methodi 00:00:00 00:00:00 ion Unknown 21734.1.[address] 3.430.2.7 Hospit a .3.747883 l .8 2022-08-19 2022-08-19 Documentat Provider, 1.2.840.1 [id number] 2 [id number] Methodi 00:00:00 00:00:00 ion Unknown 14040.1.[address] 3.430.2.7 Hospit a .3.198663 l .8 2022-08-12 2022-08-12 Pre-Admiss Barbara, Tamar 1.2.840.1 [id number] Methodi 11:00:00 12:00:00 ion Alejo 45718.1.[address] Testing 3.430.2.7 Hospit a .3.485770 l .8 2022-08-12 2022-08-12 Pre-Admiss Barbara, Tamar 1.2.840.1 [id number] [id number] Methodi 11:00:00 12:00:00 ion Alejo 74260.1.[address] Testing 3.430.2.7 Hospit a .3.997388 l .8 2022-08-12 2022-08-12 Travel 1.2.840.1 1.2.059.698 6781 779415 Methodi 00:00:00 00:00:[address] 3.430.2.7 0.2.7.3.698 Ho spita .3.294413 084.8 l .8 2022-08-12 2022-08-12 Travel 1.2.840.1 1.2.538.723 2774 875640 Methodi 00:00:00 00:00:[address] 3.430.2.7 0.2.7.3.698 Ho spita .3.408202 084.8 l .8 2022-08-06 2022-08-06 Telephone Harlan, 1.2.840.1 [id number] 2099459 Methodi 00:00:00 00:00:[address] 3.430.2.7 Hospit a .3.517200 l .8 2022-08-06 2022-08-06 Transcribe Tamar Jimenez 1.2.840.1 841321328 [id number] Methodi 00:00:00 00:00:00 Orders Alejo 09954.1.[address] 3.430.2.7 Hospit a .3.611367 l .8 2022-08-06 2022-08-06 Travel 1.2.840.1 1.2.632.424 0922 956776 Methodi 00:00:00 00:00:[address] 3.430.2.7 0.2.7.3.698 Ho spita .3.986394 084.8 l .8 2022-08-06 2022-08-06 Telephone Harlan, 1.2.840.1 [id number] 2099459 Methodi 00:00:00 00:00:[address] 3.430.2.7 Hospit a .3.755177 l .8 2022-08-06 2022-08-06 Transcribe Tamar Jimenez 1.2.840.1 969841531 [id number] Methodi 00:00:00 00:00:00 Orders Alejo 08493.1.[address] 3.430.2.7 Hospit a .3.023401 l .8 2022-08-06 2022-08-06 Travel 1.2.840.1 1.2.283.971 5996 142358 Methodi 00:00:00 00:00:[address] 3.430.2.7 0.2.7.3.698 Ho spita .3.477718 084.8 l .8 2022-07-10 2022-07-10 Orders Doctor PIPPA 1.2.840.114 017961 55 Univers 00:00:00 00:00:00 Only Unassigned, EVERETT 350.1.13.10 ity of [place] [facility] 4.2.7.2.686 Brandon as [phone] [facility] [address] 2022-07-04 2022-07-04 Telephone [facility] 1.2.840.11 4 [id number] [facility] 00:00:00 00:00:00 Mario LOVE 350.1.13.10 it y of [place] [facility] [phone] [facility] [address] 2022-06-10 2022-06-10 Office Terrance, 1.2.840.1 [id number] 225068 2257 Methodi 09:45:00 10:05:39 Visit Balaji Francis 27433.1.1 333 s t 3.430.2.7 Hospit a .3.212545 l .8 2022-06-10 2022-06-10 Office Mario, 1.2.840.1 124446145 897323 7615 Methodi 09:45:00 10:05:39 Visit Balaji Francis 30298.1.1 333 s t 3.430.2.7 Hospit a .3.551723 l .8 2022-06-10 2022-06-10 Travel 1.2.840.1 1.2.726.116 2130 709036 Methodi 00:00:00 00:00:[address] 3.430.2.7 0.2.7.3.698 Ho spita .3.822811 084.8 l .8 2022-06-10 2022-06-10 Travel 1.2.840.1 1.2.162.963 5953 350013 Methodi 00:00:00 00:00:[address] 3.430.2.7 0.2.7.3.698 Ho spita .3.147832 084.8 l .8 2022-06-09 2022-06-09 Abstract Villarreal, 1.2.840.1 [id number] 2099 534579 Methodi 00:00:00 00:00:[address] 3.430.2.7 Hospit a .3.751824 l .8 2022-06-09 2022-06-09 Abstract Villarreal, 1.2.840.1 [id number] 2099 263329 Methodi 00:00:00 00:00:[address] 3.430.2.7 Hospit a .3.006122 l .8 2022-06-09 2022-06-09 Telephone Dolores [facility] 12.840.11 4 [id number] Univers 00:00:00 00:00:00 Mario IVAN 350.1.13.10 it y of [place] [facility] [id number] [address] 2022-06-03 2022-06-03 Office [facility] 1.2.840.114 [id number] Univers 09:00:00 09:40:32 Visit Mario LOVE 350.1.13.10 it y [place] [id number] [address] 2022-06-03 2022-06-03 Outpatient R MARIO WHITAKER [facility] B [id number] [facility] 09:00:00 09:40:32 MARIO WHITAKER ity of [facility] 2022-06-03 2022-06-03 Orders Doctor PIPPA 1.2.840.114 [id number] 17 Univers 00:00:00 00:00:00 Only Unassigned, EVERETT 350.1.13.10 ity of [facility] 4.2.7.2.686 Brandon as [phone] [address] 2022-05-26 2022-05-27 Outpatient ER ARREDONDO, [facility] Emergency [id number] [facility] 21:03:00 18:28:00 MARIE 2022-05-26 2022-05-27 Emergency ER Venus Orr [facility] 10 [id number] [facility] 21:03:00 18:28:00 Jordon Tejeda, [facility] 2022-05-14 2022-05-14 Orders Tamar Jimenez 1.2.840.1 [id number] 21 [id number] Methodi 00:00:00 00:00:00 Only Alejo 45089.1.[address] 3.430.2.7 Hospit a .3.733126 l .8 2022-05-14 2022-05-14 Orders Tamar Jimenez 1.2.840.1 [id number] Methodi 00:00:00 00:00:00 Only Alejo 89273.1.[address] 3.430.2.7 Hospit a .3.325137 l .8 2022-05-13 2022-05-13 Outpatient SALVATORE THOMASON [employer] [id number] 10:52[facility] 10:52:00 JESSICA [id number] [facility] 2022-05-08 2022-05-08 Telemedici Tamar Jimenez 1.2.840.1 [id number] Methodi 11:30:00 12:30:39 ne Alejo 17555.1.[address] 3.430.2.7 Hospit a .3.788813 l .8 2022-05-08 2022-05-08 Telemedici Tamar Jimenez 1.2.840.1 [id number] Methodi 11:30:00 12:30:39 ne Alejo [address]0922.1.[address] 3.430.2.7 Hospit a .3.619609 l .8 2022-05-01 2022-05-01 [facility] 1.2.840.1 [id number] 2 [id number] Methodi 17:32:53 23:59:00 Encounter Alejo 88349.1.[address] 3.430.2.7 Hospit a .3.615601 l .8 2022-05-01 2022-05-01 [facility] 1.2.840.1 [id number] 2 [id number] Methodi 17:32:53 23:59:00 Encounter Alejo 99034.1.[address] 3.430.2.7 Hospit a .3.683639 l .8 2022-05-01 2022-05-01 [facility] 1.2.840.1 [id number] 2 [id number] Methodi 17:23:41 17:31:00 Encounter Alejo 30684.1.[address] 3.430.2.7 Hospit a .3.680886 l .8 2022-05-01 2022-05-01 [facility] 1.2.840.1 [id number] 2 [id number] Methodi 17:23:41 17:31:00 Encounter Alejo [address]291.1.[address] 3.430.2.7 Hospit a .3.097428 l .8 2022-05-01 2022-05-01 [facility] 1.2.840.1 [id number] 21 [id number] Methodi 00:00:00 00:00:00 Only Alejo 24743.1.[address] 3.430.2.7 Hospit a .3.003193 l .8 2022-05-01 2022-05-01 [facility] 1.2.840.1 [id number] 21 [id number] Methodi 00:00:00 00:00:00 Only Alejo 80396.1.[address] 3.430.2.7 Hospit a .3.522408 l .8 2022-04-23 2022-04-23 Outpatient EL [facility] [id number] 294 [facility] 07:36:34 07:36:34 2022-04-22 2022-04-22 Office Tamar Jimenez 1.2.840.1 [id number] 21 [id number] Methodi 13:20:00 13:57:38 Visit Alejo 37450.1.[address] 3.430.2.7 Hospit a .3.670605 l .8 2022-04-22 2022-04-22 Office Kevin Jimenezi 1.2.840.1 [id number] 21 [id number] Methodi 13:20:00 13:57:38 Visit Alejo 33091.1.[address] 3.430.2.7 Hospit a .3.187402 l .8 2022-04-22 2022-04-22 Travel 1.2.840.1 1.2.727.392 3365 843947 Methodi 00:00:00 00:00:[address] 3.430.2.7 0.2.7.3.698 Ho spita .3.525766 084.8 l .8 2022-04-22 2022-04-22 Travel 1.2.840.1 1.2.901.484 7183 823801 Methodi 00:00:00 00:00:[address] 3.430.2.7 0.2.7.3.698 Ho spita .3.627832 084.8 l .8 2022-04-14 2022-04-16 Inpatient ER [facility] Emergency [id number] [facility] 05:10:00 14:27:00 2022-04-14 2022-04-16 Hospital ER Jordon Tejeda [facility] [id number] [id number] [facility] 05:10:00 14:27:00 [facility] 2022-04-15 2022-04-15 Surgery [facility] [id number] [facility] 11:30:00 12:00:00 Jacques Roman [facility] 2022-04-15 2022-04-15 Anesthesia Meek Haynes [facility] [id number] [facility] 11:30:00 11:45:00 Event Josué [facility] 2022-04-15 2022-04-15 Orders EL [facility] [id number] [address] 00:35:00 00:50:00 Only [facility] 2022-04-10 2022-04-10 Travel 1.2.840.1 1.2.297.441 5324 126498 Methodi 00:00:00 00:00:[address] 3.430.2.7 0.2.7.3.698 Ho spita .3.090635 084.8 l .8 2022-04-10 2022-04-10 Travel 1.2.840.1 1.2.399.689 8917 711475 Methodi 00:00:00 00:00:[address] 3.430.2.7 0.2.7.3.698 Ho spita .3.330903 084.8 l .8 2022-03-20 2022-03-20 Outpatient TAMAR JIMENEZ [facility] 427 [id number] [place] 00:00:00 00:00:[address] 2022-03-20 2022-03-20 Outpatient TAMAR JIMENEZ [facility] 532 [id number] [place] 00:00:00 00:00:[address] 2022-03-04 2022-03-04 Outpatient AMANDA, [facility] [id number] 418 [place] 00:00:00 00:00:[address] DEZ [address] 2022-03-04 2022-03-04 Outpatient AMANDA, [facility] [id number] [place] 00:00:00 00:00:[address] DEZ [address] 2022-01-27 2022-01-27 [facility] 1.2.840.114 [id number] Univers 10:30:00 10:51:13 Visit Mario LOVE 350.1.13.10 it y of WOMEN'S 4.2.7.2.686 [facility] [id number] [address] 2022-01-27 2022-01-27 Outpatient R MARIO WHITAKER [facility] B [id number] Univers 10:30:00 10:51:13 PATRICMARIO ELAM [facility] 2022-01-27 2022-01-27 Outpatient R MARIO WHITAKER [facility] B [id number] Univers 10:30:00 10:30:00 [facility] selin [facility] 2022-01-14 2022-01-26 Discharged LEXIE WHITMORE AE00 [id number] [place] 14:17:00 23:59:00 Recur[address] [facility] St 27 [facility] 2022-01-14 2022-01-26 Outpatient MYRANDA RAMIREZ [id number] 842-2 [place] 14:17:00 00:01:00 JEANETTE [id number] [facility] 2022-01-14 2022-01-14 Outpatient MYRANDA SMILEY [id number] 0CE99 [place] 14:08:00 14:08:00 BELKYS 60 [facility] 2022-01-02 2022-01-02 Outpatient MORALES_JON [facility] 257 48-2021 [place] 00:00:00 00:00:00 ATHAN_NP 0707 [facility] al Group 2022-01-02 2022-01-02 Outpatient [facility] [id number] 023 [place] 00:00:00 00:00:00 0202 Medica l Group 2022-01-02 2022-01-02 Outpatient [facility] [id number] 023 [place] 00:00:00 00:00:00 0405 Medica l Group 2022-01-02 2022-01-02 Outpatient [facility] [id number] 023 [place] 00:00:00 00:00:00 0603 Medica l Group 2022-01-02 2022-01-02 Outpatient [facility] [id number] 023 [place] 00:00:00 00:00:00 0803 Medica l Group 2022-01-02 2022-01-02 Outpatient SMG SMG [id number] 023 [place] 00:00:00 00:00:00 1004 Medica l Group 2022-01-01 2022-01-01 Outpatient DIMIDJIAN_C SMG SMG 257 48-2021 [place] 02:15:00 02:15:00 ARLOS_DPM 0706 [facility] wilfredo Group 2021-12-31 2021-12-31 Outpatient DIMIDJIAN_C SMG SMG 257 48 [place] 03:23:00 03:23:00 ARLOS_DPM 0705 [facility] wilfredo Group 2021-12-31 2021-12-31 Outpatient ANGELY Steven SMG [id number] 44-[id number] 00:00:00 00:00:00 Brendon [id number] 2021-12-31 2021-12-31 [place]rend[place] - SMG [id number] [place] 00:00:00 00:00:00 Dhaval Steven al 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 [address] , Ph. 2021-12-17 2021-12-17 Outpatient DIMIDJIAN_C SMG SMG 257 48 [place] 12:11:00 12:11:00 ARLOS_DPM 0621 [facility] Group 2021-12-17 2021-12-17 Ventura [facility] [place] - SMG [id number] [place] 00:00:00 00:00:00 Dhaval Young [facility] ica DPM: [address] - Zander up [address] [facility] [place] [place] [address] , Ph. 2021-12-17 2021-12-17 Outpatient ANGELY Young SMG [id number] e552-f 00:00:00 00:00:00 Ventura [id number] 2021-11-07 2021-11-07 Outpatient DIMIDJIAN_C SMG SMG 257 48 [place] 02:35:00 02:35:00 ARLOS_DPM 0512 Medi wilfredo Group 2021-11-07 2021-11-07 Ventura [facility] [place] - SMG [id number] [place] 00:00:00 00:00:00 Dhaval Young [facility] ical DPM: [address] - [address]ander [address] [facility] [address] , Ph. 2021-11-07 2021-11-07 Outpatient ANGELY Young SMG 94da 1bcc-d 00:00:00 00:00:00 [place] [id number] 2021-10-29 2021-10-29 Outpatient MORALES_EDWARDO [facility] 257 [place] 11:27:00 11:27:00 ATHAN_NP 0503 Medic al Group 2021-10-29 2021-10-29 Brendon [facility] [place] - [facility] [id number] [place] 00:00:00 00:00:00 Dhaval Steven Gerardo al 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 [address] [facility] [address] , Ph. 2021-10-29 2021-10-29 Outpatient Maurizio [facility] [id number] ce-c 00:00:00 00:00:00 Brendon [id number] 2478-04-27 2021-10-23 Outpatient MORALES_FARRAHN [facility] 257 [place] 02:53:00 02:53:00 ATHAN_NP 0427 Medic al Group 2021-09-02 2021-09-26 Discharged LEXIE WHITMORE AE00 [id number] [place] 13:52:00 23:59:[address] 2021-09-02 2021-09-26 Outpatient MYRANDA RAMIREZ [id number] [id number] [place] 13:52:00 00:01:00 [facility] [id number] [facility] 2021-09-02 2021-09-02 Outpatient MYRANDA WELCH [id number] 2CE99 [place] 13:40:00 13:40:[address] 2021-08-23 2021-08-23 Outpatient NAOUM, [facility] [id number] 491 [place] 00:00:00 00:00:00 BALAJI [address] 2021-07-09 2021-07-29 Discharged LEXIE MYRANDA AE00 [id number] [place] 12:52:00 23:59:00 [facility] 04 [facility] 2021-07-09 2021-07-29 Outpatient MYRANDA RAMIREZ MYRADNA [id number] [id number] [place] 12:52:00 00:01:00 SASSAN [id number] [facility] 2021-07-24 2021-07-24 Outpatient NAOUM, [facility] [id number] 602 [place] 00:00:00 00:00:00 BALAJI 713 Method i 2021-07-17 2021-07-17 Outpatient NAOUM, [facility] [id number] [place] 00:00:00 00:00:00 BALAJI 862 Method i 2021-07-09 2021-07-09 Outpatient YURI MIRA MYRANDA [id number] 7CE99 [place] 12:53:00 12:53:[address] 2021-07-02 2021-07-02 Outpatient NAOUM, [facility] [id number] 335 [place] 00:00:00 00:00:00 BALAJI 753 Method i 2021-05-30 2021-05-30 Outpatient CHARMAINEM, [facility] [id number] 197 [place] 00:00:00 00:00:00 BALAJI 199 Method i 2021-05-14 2021-05-28 Outpatient MYRANDA RAMIREZ MYRANDA [id number] [id number] [place] 13:20:00 00:01:00 SASSAN [id number] [facility] 2021-05-16 2021-05-16 Outpatient NAOUM, [facility] [id number] 829 [place] 00:00:00 00:00:00 BALAJI [address] 2021-05-14 2021-05-14 Outpatient YURI MIRA MYRANDA [id number] [place] 13:12:00 13:12:[address] 2021-04-30 2021-04-30 Outpatient NAOUM, [facility] [id number] 636 [place] 00:00:00 00:00:00 BALAJI [address] [facility] 2021-04-22 2021-04-28 Outpatient SALVATORE YEAGER, MYRANDA WHITMORE [id number] [id number] [place] 15:01:00 00:01:00 MINERVA [id number] [facility] 2021-04-16 2021-04-28 Outpatient EL NICHOLE, MYRANDA WHITMORE [id number] [id number] [place] 13:02:00 00:01:00 SASN [id number] [facility] 2021-04-01 2021-04-28 Outpatient SALVATORE ALMAZAN, JOHANN WHITMORE [facility] [id number] [facility] 10:22:00 00:01:00 [id number] [facility] 2021-04-16 2021-04-16 Outpatient NICHOLE, MYRANDA MYRANDA [id number] [facility] 13:02:00 13:02:00 SASSAN 60 [facility] 2021-04-04 2021-04-04 Outpatient SALVATORE ALMAZAN, JOHANN MIRA [facility] [id number] [facility] 13:09:00 13:09:00 [id number] [facility] 2021-03-06 2021-03-28 Discharged LEXIE MYRANDA [id number] [facility] 16:20:00 23:59:00 Recurring [facility] [address] [facility] 2021-03-06 2021-03-06 Outpatient SALVATORE YEAGER, MYRANDA WHITMORE [id number] [facility] 16:20:00 16:20:00 ADDISON [id number] [facility] 2021-01-29 2021-01-29 Outpatient MORALES_JON [facility] [id number] 48-2020 Charity 05:53:00 05:53:00 ATHAN_NP 0803 [facility] 2021-01-29 2021-01-29 Outpatient Steven, SMG SMG [id number] 00:00:00 00:00:00 Brendon [id number] 2021-01-29 2021-01-29 Outpatient Steven, SMG SMG [id number] [id number] 00:00:00 00:00:00 Brendon [id number] 2021-01-29 2021-01-29 [place]rendon [place] - SMG [id number] [place] 00:00:00 00:00:00 Dhaval Steven al 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 [address] , Ph. 2021-01-28 2021-01-28 Outpatient MORALES_JON [facility]G [id number] 48 [place] 12:38:00 12:38:00 ATHAN_NP 0802 [facility] 2021-01-28 2021-01-28 Outpatient Steven, SMG SMG [id number] 00:00:00 00:00:00 Brendon [id number] 2021-01-28 2021-01-28 Brendon [facility] [place] - SMG [id number] [place] 00:00:00 00:00:00 Dhaval Steven al 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/[place] [address] , Ph. 2021-01-24 2021-01-24 Outpatient BENIGNO_DAI [facility] SMG 257 48 [place] 11:34:00 11:34:00 MARYANNE_ 0729 Medica l Group 2021-01-24 2021-01-24 Outpatient Richar, SMG SMG [id number] 00:00:00 00:00:00 Funmi October [id number] Gamcynthia [id number] 2021-01-24 2021-01-24 Funmi October [facility] [place] - SMG [id number] [place] 00:00:00 00:00:00 Heron [facility]a [facility] PARK Mcqeuen/ANIA/MYRNA love MD: [address] [place] [address] , Ph. 2021-01-21 2021-01-21 Outpatient BENIGNO_DAI [facility]G SMG 257 48 [place] 11:20:00 11:20:00 LAZARO 0726 Medica l Group 2021-01-21 2021-01-21 Outpatient Richar, SMG SMG [id number] 00:00:00 00:00:00 Funmi Fuchs [id number] Venanciocynthia [id number] 2021-01-21 2021-01-21 Funmi October [facility] [place] - SMG [id number] [place] 00:00:00 00:00:00 Heron Lewis l Richar, [place]/ANIA/MYRNA love MD: [address] [place] [address] , Ph. 2021-01-17 2021-01-17 Outpatient BENIGNO_DAI [facility]G SMG 257 48 [place] 04:19:00 04:19:00 LAZARO 0722 Medica l Group 2021-01-17 2021-01-17 Outpatient Steven, SMG SMG [id number] 00:00:00 00:00:00 Brendon [id number] 2021-01-17 2021-01-17 Brendon [facility] [place] - SMG [id number] Char[facility] 00:00:00 00:00:00 Dhaval Steven al 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 [address] , Ph. 2021-01-14 2021-01-14 Outpatient BENIGNO_DAI [facility]G SMG 257 48 [place] 03:47:00 03:47:00 LAZARO 0719 Medica l Group 2021-01-14 2021-01-14 Brendon [place] - SMG [id number] [place] 00:00:00 00:00:00 Dhaval Steven al 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/[place] [address] , Ph. 2021-01-14 2021-01-14 Outpatient Steven, SMG SMG [id number] 00:00:00 00:00:00 Brendon [id number] 2021-01-11 2021-01-11 Outpatient BENIGNO_DAI SMG SMG 257 48-2020 [place] 05:35:00 05:35:00 LAZARO 0716 Medica l Group 2021-01-10 2021-01-10 Outpatient BENIGNO_DAI SMG SMG [id number] [id number] [place] 04:07:00 04:07:00 LAZARO 15 Medica l Group 2021-01-10 2021-01-10 Ventura [facility] [place] - SMG [id number] [place] 00:00:00 00:00:00 Dhaval Young ical DPM: [address] - [address] [facility] [place], [place] [address] , Ph. 2021-01-10 2021-01-10 Outpatient Hannah [facility] [id number] 00:00:00 00:00:00 Ventura [id number] 2021-01-10 2021-01-10 Outpatient Steven, ANGELY [facility] [id number] 00:00:00 00:00:00 Brendon [id number] 2020-12-19 Outpatient BENIGNO_DAI SMG SMG [id number] [id number] [place] 11:25:00 11:25:00 LAZARO 0623 Medica l Group 2020-12-18 2020-12-18 Outpatient BENIGNO_DAI SMG SMG [id number] [id number] [place] 11:43:00 11:43:00 MARYANNE_ 0622 Medica l Group 2020-12-18 2020-12-18 Brendon [facility] [place] - SMG [id number] [facility] 00:00:00 00:00:00 Dhaval Steven al HORTICULTURE SUPERVISOR: [address] - [facility] [place] [address] , Ph. 2020-12-18 2020-12-18 Outpatient Maurizio, [facility] [id number] 00:00:00 00:00:00 Brendon [id number] 2019-11-22 2019-11-22 Outpatient JANET, [facility] [id number] [facility]BL 10:10:00 10:10:00 ART 2019-07-13 2019-07-13 Outpatient NIKOS, [facility] [id number] [address] [place] [address] 00:00:00 00:00:00 JESSICA 580 Method i st 2016-02-15 2016-02-15 Follow-Up nullFlavo Chan 70be83 0e-5 Memoria 19:15:00 19:15:00 yuri Dorman MD, h14-3bww-4 l PA [id number] Rae nn 97e1b2 2016-02-15 2016-02-15 Follow-Up nullFlavo Chan 70be83 0e-5 Memoria 19:15:00 19:15:00 yuri Dorman MD, x71-6oic-7 l PA [id number] Rae nn 97e1b2 2016-02-15 2016-02-15 Outpatient Chan Giles 11181 eClinic 14:15:00 14:15:00 Dandy Dorman MD, valeriy Crawford MD, PA PA 2015-11-01 2015-11-01 Follow-Up nullFlavo Chan fca2e6 06-8 Memoria 16:00:00 16:00:00 yuri Dorman MD, 3s4-2w01-1 l PA [id number]-65e17f Rae nn 869aab 2015-11-01 2015-11-01 Follow-Up nullFlavo Chan 6z088d 5c-3 Memoria 16:00:00 16:00:00 yuri Dorman MD, 1m0-9525-o l PA [id number] Rae nn [id number] 2015-11-01 2015-11-01 Follow-Up nullFlavo Chan fca2e6 06-8 Memoria 16:00:00 16:00:00 yuri Dorman MD, 4e3-8y98-1 l PA [id number]-65e17f Are nn 869aab 2015-11-01 2015-11-01 Follow-Up nullFlavo Chan 6h916i 5c-3 Memoria 16:00:00 16:00:00 yuri Dorman MD, 9n5-3578-e l PA [id number] Rae 85322e 2015-11-01 2015-11-01 [facility] Chan Giles 89674 eClinic 11:00:00 11:00:00 Dandy Dorman MD, valeriy Crawford MD, PA PA 2015-10-16 2015-10-16 echo/carot nullFlavo Chan [facility] 79c-1 Memoria 15:00:00 15:00:00 id/arterivalentine Dorman MD, 198-44c 2-b l l dopplers PA [id number] [facility] c800ca 2015-10-16 2015-10-16 echo/carot nullFlavo Chan c98a8 fa3-9 Memoria 15:00:00 15:00:00 id/arterivalentine Dorman MD, dfc-4f8 7-a l l dopplers PA [id number] [facility] 797a4e 2015-10-16 2015-10-16 echo/carot nullFlavo Chan 9d58c 16d-c Memoria 15:00:00 15:00:00 id/arterivalentine Dorman MD, 58c-4d0 3-9 l l dopplers PA [id number] [facility] [id number] 5098-04-19 2015-10-16 echo/carot nullFlavo Chan [facility] 79c-1 Memoria 15:00:00 15:00:00 id/arterivalentine Dorman MD, 198-44c 2-b l l dopplers PA [id number] [facility] c800ca 2015-10-16 2015-10-16 echo/carot nullFlavo Chan c98a8 fa3-9 Memoria 15:00:00 15:00:00 id/abelino Dorman MD, dfc-4f8 7-a l l dopplers PA [id number] [facility] 797a4e 2015-10-16 2015-10-16 echo/carot nullFlavo Chan 9d58c 16d-c Memoria 15:00:00 15:00:00 id/arterivalentine Dorman MD, 58c-4d0 3-9 l l dopplers JUAN [id number] [facility] [id number] 3372-04-19 2015-10-16 Outpatient Chan Giles 51739 eClinic 10:00:00 10:00:00 Dandy Dorman MD, valeriy Crawford MD, JUAN MARTINEZ Results Test Description Test Time Test Comments Results Result Comments Source POC-Glucose meter 2023-01-27 13:45:42 Test Item Value Reference Range Interpretation Comme nts POC-Glucose Meter (test code = 280 mg/dL 70-110 H : TESTED AT [facility] [address] [facility] [address], [facility] 30: Preanalytics Team Lead/Techni eder ID = [id number] for Larry, Geraldi ne Lab Interpretation (test code = Abnormal 81472-9) [facility] [id number] 13:45:42 Test Item Value Reference Range Interpretation Comments POC-Glucose Meter (test 280 mg/dL 70-110 H : TE STED AT [facility] code = 1538) [address] [place] [address], [facility] 30: Preanalytics Team Lead/Techni eder ID = [id number] for Larry, Geraldi ne Lab Interpretation (test Abnormal code = 71352-7) [facility] [id number] 13:45:42 Test Item Value Reference Range Interpretation Comments POC-GLUCOSE METER 280 mg/dL 70-110 H : TESTED A T [facility] [address] (BEAKER) (test code [facility], = 1538) [address]: Preanalytics Team Lead/Techni eder ID = [id number] for Artemio Fernandoaldine POCT-GLUCOSE [id number] 12:01:14 Test Item Value Reference Range Interpretation Comments POC-GLUCOSE METER 314 mg/dL 70-110 H : TESTED A T [facility] 67[address] (BEAKER) (test code = [facility], 1538) [address]: Preanalytics Team Lead/Techni eder ID = [id number] for JÚNIOR MORILLO POCT-GLUCOSE [id number] 11:21:55 Test Item Value Reference Range Interpretation Comments POC-GLUCOSE METER 326 mg/dL 70-110 H : TESTED A T [facility] 6720 (BEAKER) (test code = [facility], 1538) [address]: Preanalytics Team Lead/Techni eder ID = [id number] for Shi Herrera POCT-GLUCOSE [id number] 10:27:10 Test Item Value Reference Range Interpretation Comments POC-GLUCOSE METER 290 mg/dL 70-110 H : [facility] (test code [facility], = 1538) [address]: Preanalytics Team Lead/Techni eder ID = [id number] for Kath Teague Potassium-Stat [id number] 08:33:06 Test Item Value Reference Range Interpretation Comments Potassium (test code = 2823-3) 4.2 meq/L 3.6-5.5 Lab Interpretation (test code = Normal 73746-6) [facility] [id number] 08:33:06 Test Item Value Reference Range Interpretation Comments Potassium (test code = 2823-3) 4.2 meq/L 3.6-5.5 Lab Interpretation (test code = Normal 56173-3) [facility] [id number] 08:33:06 Test Item Value Reference Range Interpretation Comments POTASSIUM (BEAKER) (test code = 4.2 meq/L 3.6-5.5 379) POCT-GLUCOSE [id number] 08:01:12 Test Item Value Reference Range Interpretation Comments POC-GLUCOSE METER 196 mg/dL 70-110 H : TESTED A T [facility] 67[address] (BEAKER) (test code = SALUD Andrade [facility], 1538) [address]: Preanalytics Team Lead/Techni eder ID = [id number] for Krysta Mccormick POC [id number] 14:41:00 Test Item Value Reference Range Interpretation Comments POC glucose (test code = 256 mg/dL 65-99 H Ope rator Name: Esdras 37335-8) LauraDevice ID: [id number] Lab Interpretation (test Abnormal code = 29272-5) [facility] [id number] 14:41:00 Test Item Value Reference Range Interpretation Comments POC glucose (test code = 256 mg/dL 65-99 H Ope rator Name: Esdras 78734-4) LauraDevice ID: [id number] Lab Interpretation (test Abnormal code = 01724-2) [facility] [id number] 14:41:00 Test Item Value Reference Range Interpretation Comments POC glucose (test code = 256 mg/dL 65-99 H Ope rator Name: Esdras 21198-0) Jason ID: [id number] Lab Interpretation (test Abnormal code = 54542-0) [facility] [Presence] in Respiratory specimen by JOANIE with probe [id number] 01:49:57 Test Item Value Reference Range Interpretation Comments SARS-CoV-2 (COVID-19) RNA Not detected [Presence] in Respiratory specimen by JOANIE with probe detection (test code = 36575-9) Whether patient is employed in a Unknown healthcare setting (test code = 24829-3) Whether the patient has symptoms Unknown related to condition of interest (test code = 19412-5) Whether the patient was Unknown hospitalized for condition of interest (test code = 06246-7) Whether the patient was admitted Unknown to intensive care unit (ICU) for condition of interest (test code = 31402-6) Whether patient resides in a Unknown congregate care setting (test code = 66791-4) status (test code = Unknown 03421-1) Date and time of symptom onset Unknown (test code = 19847-9) [facility] [id number] 12:09:01 Test Item Value Reference Range Interpretation Comments POC sodium (test code = 133 mmol/L 135-148 L 2947-0) POC potassium (test code 4.8 mmol/L 3.5-5.0 = 6298-4) POC glucose (test code = 236 mg/dL 65-99 H 2339-0) POC creatinine (test 6.8 mg/dl 0.5-0.9 H Operato r Name: code = 49935-4) Shelly gage ID: [id number] POC hemoglobin (test 13.3 g/dL 12.0-16.0 code = 718-7) POC hematocrit (test 39 % 37-47 code = 4544-3) Lab Interpretation (test Abnormal code = 97155-8) [facility] [id number] 12:09:01 Test Item Value Reference Range Interpretation Comments POC sodium (test code = 133 mmol/L 135-148 L 2947-0) POC potassium (test code 4.8 mmol/L 3.5-5.0 = 6298-4) POC glucose (test code = 236 mg/dL 65-99 H 2339-0) POC creatinine (test 6.8 mg/dl 0.5-0.9 H Operato r Name: code = 30357-1) Shelly gage ID: [id number] POC hemoglobin (test 13.3 g/dL 12.0-16.0 code = 718-7) POC hematocrit (test 39 % 37-47 code = 4544-3) Lab Interpretation (test Abnormal code = 37787-3) [facility] [id number] 12:09:01 Test Item Value Reference Range Interpretation Comments POC sodium (test code = 133 mmol/L 135-148 L 2947-0) POC potassium (test code 4.8 mmol/L 3.5-5.0 = 6298-4) POC glucose (test code = 236 mg/dL 65-99 H 2339-0) POC creatinine (test 6.8 mg/dl 0.5-0.9 H Operato r Name: code = 84274-5) Shelly gage ID: [id number] POC hemoglobin (test 13.3 g/dL 12.0-16.0 code = 718-7) POC hematocrit (test 39 % 37-47 code = 4544-3) Lab Interpretation (test Abnormal code = 92896-1) [facility] Pre/Post [id number] 23:14:16 Test Item Value Reference Range Interpretation Comments Ventricular rate 73 (test code = 253) Atrial rate (test 73 code = 255) OH interval (test 160 code = 266) QRSD interval (test 92 code = 260) QT interval (test 402 code = 264) QTC interval (test 442 code = 265) P axis 1 (test code = 53 267) QRS axis 1 (test code 20 = 268) T wave axis (test 25 code = 270) EKG impression (test Normal sinus rhythm-Low code = 273) voltage QRS-Incomplete right bundle branch block-Cannot rule out Anterior infarct , age undetermined-Abnormal ECG-In automated comparison with ECG of 23-AUG-2021 08:48,-Minimal criteria for Anterior infarct are now present- [facility] Pre/Post [id number] 23:14:16 Test Item Value Reference Range Interpretation Comments Ventricular rate 73 (test code = 253) Atrial rate (test 73 code = 255) OH interval (test 160 code = 266) QRSD interval (test 92 code = 260) QT interval (test 402 code = 264) QTC interval (test 442 code = 265) P axis 1 (test code = 53 267) QRS axis 1 (test code 20 = 268) T wave axis (test 25 code = 270) EKG impression (test Normal sinus rhythm-Low code = 273) voltage QRS-Incomplete right bundle branch block-Cannot rule out Anterior infarct , age undetermined-Abnormal ECG-In automated comparison with ECG of 23-AUG-2021 08:48,-Minimal criteria for Anterior infarct are now present- [facility] Pre/Post [id number] 23:14:16 Test Item Value Reference Range Interpretation Comments Ventricular rate 73 (test code = 253) Atrial rate (test 73 code = 255) OH interval (test 160 code = 266) QRSD interval (test 92 code = 260) QT interval (test 402 code = 264) QTC interval (test 442 code = 265) P axis 1 (test code = 53 267) QRS axis 1 (test code 20 = 268) T wave axis (test 25 code = 270) EKG impression (test Normal sinus rhythm-Low code = 273) voltage QRS-Incomplete right bundle branch block-Cannot rule out Anterior infarct , age undetermined-Abnormal ECG-In automated comparison with ECG of 23-AUG-2021 08:48,-Minimal criteria for Anterior infarct are now present- [facility] [id number] 19:27:01 Test Item Value Reference Range Interpretation Comments SCAN RESULT (test code = 7734183) Pathology [id number] 19:27:01Scan Ryfkwf1206/04/2022 7:27 [facility] [id number] 19:27:01Scan Wwmuet7106/04/2022 7:27 PM [facility] [id number] 23:54:00 Test Item Value Reference Range Interpretation Comments CROSSMATCH (test code = 2264) COMPATIBLE Unit ABO (test code = O Pos 6739993) UNIT NUMBER (test code = [id number] 934-0) Status (test code = 7286120) TX_TIMEINCHART Blood Bank Product (test code RED BLOOD CELLS = 2263) PRODUCT CODE (test code = M5239N18 933-2) [facility] [id number] 23:54:00 Test Item Value Reference Range Interpretation Comments CROSSMATCH (test code = 2264) COMPATIBLE Unit ABO (test code = O Pos 8470888) UNIT NUMBER (test code = [id number] 934-0) Status (test code = 9448161) TX_TIMEINCHART Blood Bank Product (test code RED BLOOD CELLS = 2263) PRODUCT CODE (test code = J4008B93 933-2) [facility] [id number] 18:44:54 Test Item Value Reference Range Interpretation Comments HEPATITIS B SURFACE ANTIBODY 44.4 mIU/mL <8.0 H (BEAKER) (test code = 647) Preanalytics Team Lead ID - [id number] (HEMOGRAM ONLY)2022-05-27 17:17:26 Test Item Value Reference Range Interpretation Comments WHITE BLOOD CELL COUNT (BEAKER) 6.7 K/ L 4.0-10.0 (test code = 775) RED BLOOD CELL COUNT (BEAKER) 3.48 M/ L 4.00-5.00 L (test code = 761) HEMOGLOBIN (BEAKER) (test code = 10.8 GM/DL 12.0-15.5 L 410) HEMATOCRIT (BEAKER) (test code = 33.6 % 36.0-46.0 L 411) MEAN CORPUSCULAR VOLUME (BEAKER) 97 fL 82-99 (test code = 753) MEAN CORPUSCULAR HEMOGLOBIN 31.0 pg 27.0-33.0 (BEAKER) (test code = 751) MEAN CORPUSCULAR HEMOGLOBIN CONC 32.1 GM/DL 32.0-36.0 (BEAKER) (test code = 752) RED CELL DISTRIBUTION WIDTH 23.0 % 12.0-15.0 H (BEAKER) (test code = 412) PLATELET COUNT (BEAKER) (test 187 K/CU MM 150-430 code = 756) MEAN PLATELET VOLUME (BEAKER) 10.2 fL 6.0-11.5 (test code = 754) NUCLEATED RED BLOOD CELLS 0 /100 WBC 0-0 (BEAKER) (test code = 413) POCT-GLUCOSE [id number] 14:38:17 Test Item Value Reference Range Interpretation Comments POC-GLUCOSE METER 107 mg/dL 70-110 : TESTED A T [facility] 1317 (BEAKER) (test code [facility], = 1538) [place] 442778: Preanalytics Team Lead/Techni eder ID = [id number] for Udoh , Taylor HEPATITIS B SURFACE [id number] 13:01:12 Test Item Value Reference Range Interpretation Comments HEPATITIS B SURFACE ANTIGEN (2) Nonreactive Nonreactive ([facility]) (test code = 2585) Preanalytics Team Lead ID - [id number] 09:44:24 Test Item Value Reference Range Interpretation Comments POC-GLUCOSE METER 104 mg/dL 70-110 : TESTED A T [facility] (BEAKER) (test code [facility], = 1538) [place] 442778: Preanalytics Team Lead/Techni eder ID = [id number] for Udoh , Taylor HEMOGLOBIN [id number] 04:48:41 Test Item Value Reference Range Interpretation Comments HEMOGLOBIN A1C (BEAKER) (test code = 5.6 % 4.3-6.1 368) Preanalytics Team Lead ID - [id number] W/PLT COUNT & AUTO [id number] 04:47:35 Test Item Value Reference Range Interpretation Comments WHITE BLOOD CELL COUNT (BEAKER) 4.8 K/ L 4.0-10.0 (test code = 775) RED BLOOD CELL COUNT (BEAKER) 2.02 M/ L 4.00-5.00 L (test code = 761) HEMOGLOBIN (BEAKER) (test code = 6.9 GM/DL 12.0-15.5 L 410) HEMATOCRIT (BEAKER) (test code = 21.7 % 36.0-46.0 L 411) MEAN CORPUSCULAR VOLUME (BEAKER) 107 fL 82-99 H (test code = 753) MEAN CORPUSCULAR HEMOGLOBIN 34.2 pg 27.0-33.0 H (BEAKER) (test code = 751) MEAN CORPUSCULAR HEMOGLOBIN CONC 31.8 GM/DL 32.0-36.0 L (BEAKER) (test code = 752) RED CELL DISTRIBUTION WIDTH 16.5 % 12.0-15.0 H (BEAKER) (test code = 412) PLATELET COUNT (BEAKER) (test 133 K/CU MM 150-430 L code = 756) MEAN PLATELET VOLUME (BEAKER) 10.1 fL 6.0-11.5 (test code = 754) NUCLEATED RED BLOOD CELLS 0 /100 WBC 0-0 (BEAKER) (test code = 413) NEUTROPHILS RELATIVE PERCENT 63 % (BEAKER) (test code = 429) LYMPHOCYTES RELATIVE PERCENT 21 % (BEAKER) (test code = 430) MONOCYTES RELATIVE PERCENT 10 % (BEAKER) (test code = 431) EOSINOPHILS RELATIVE PERCENT 4 % (BEAKER) (test code = 432) BASOPHILS RELATIVE PERCENT 0 % (BEAKER) (test code = 437) NEUTROPHILS ABSOLUTE COUNT 3.01 K/ L 1.80-8.00 (BEAKER) (test code = 670) LYMPHOCYTES ABSOLUTE COUNT 1.02 K/ L 1.48-4.50 L (BEAKER) (test code = 414) MONOCYTES ABSOLUTE COUNT (BEAKER) 0.50 K/ L 0.00-1.30 (test code = 415) EOSINOPHILS ABSOLUTE COUNT 0.21 K/ L 0.00-0.50 (BEAKER) (test code = 416) BASOPHILS ABSOLUTE COUNT (BEAKER) 0.02 K/ L 0.00-0.20 (test code = 417) IMMATURE GRANULOCYTES-RELATIVE 1.00 % 0.00-0.00 H PERCENT (BEAKER) (test code = 2807) COMPREHENSIVE METABOLIC [id number] 04:09:42 Test Item Value Reference Range Interpretation Comments TOTAL PROTEIN 6.0 gm/dL 6.0-8.5 (BEAKER) (test code = 770) ALBUMIN (BEAKER) 3.4 g/dL 3.5-5.0 L (test code = 1145) ALKALINE 69 U/L 30-115 PHOSPHATASE (BEAKER) (test code = 346) BILIRUBIN TOTAL 0.5 mg/dL 0.1-1.2 (BEAKER) (test code = 377) SODIUM (BEAKER) 139 meq/L 135-148 (test code = 381) POTASSIUM (BEAKER) 3.7 meq/L 3.6-5.5 (test code = 379) CHLORIDE (BEAKER) 100 meq/L 98-106 (test code = 382) CO2 (BEAKER) (test 25 meq/L 20-29 code = 355) BLOOD UREA 36 mg/dL 10-26 H NITROGEN (BEAKER) (test code = 354) CREATININE 5.07 mg/dL 0.50-1.20 H (BEAKER) (test code = 358) GLUCOSE RANDOM 92 mg/dL 70-110 (BEAKER) (test code = 652) CALCIUM (BEAKER) 9.0 mg/dL 8.5-10.5 (test code = 697) AST (SGOT) 17 U/L 5-40 (BEAKER) (test code = 353) ALT (SGPT) 20 U/L 5-50 (BEAKER) (test code = 347) EGFR (BEAKER) 8 Interpretatio n of eGFR (test code = 1092) mL/min/1.[address] age Description sq m Result G1 Jackie l or high >=90 G2 Mildly decreased 60-89 G3a Mildl y to moderately 45-5 9 G3b Moderately to s everely 30-44 G4 Sever ly decreased 15-29 G5 Kidney failure <15Repo rted eGFR is based on the CKD-EPI 2020 equation t hat does not use a race coefficientEsti mated GFR is not as accur ate as Creatinine Malena tirado in predicting glom erular filtration rate . Estimated GFR is not appl icable for dialysis patien ts Preanalytics Team Lead ID - [id number] ID - [id number] ID - [id number] ID - ARJV56Tpaqptcy ID - SEMQ06Swspkmbl ID - NLXS01Rycdddqe ID - ZLOL89Elnpvqwg ID - DKYW58Rtyelvhw ID - LFOM31Jyznkmks ID - BCLW35Apskgski ID - ROVN48Zfyvverp ID - SBYG14Blywkcyy ID - QPZU98Pzrchoem ID - PCAJ02Gmxgnjcr ID - MEHV52Uqgejkzb ID - RKGC66Xekxmeig ID - UDSE74Cndkavvn ID - UNQM91Dhpvvdlw ID - [id number] AND [id number] 03:45:05 Test Item Value Reference Range Interpretation Comments HEMOGLOBIN (BEAKER) (test code = 7.1 GM/DL 12.0-15.5 L 410) HEMATOCRIT (BEAKER) (test code = 23.0 % 36.0-46.0 L 411) SARS-CoV2/RT-PCR (Asymptomatic ONLY)2022-05-27 01:08:43 Test Item Value Reference Interpretation Comments Range SARS-COV2/RT-PCR Negative Negative The SARS-Co V-2 (test code = target nucleic 34760-9) acids are not detected in thi s specimen. Negat ingrid results do not preclude SARS-C oV-2 infection and should not be u sed as the sole bas is for patient management decisions. Nega tive results must be combined with clinical observations, patient history , and epidemiolog ical information. A false negative result may occu r if a specimen is improperly collected, transported or handled. This S ARS CoV-2 test is a rapid, real-lupe e RT-PCR test intended for th e qualitative detection of nucleic acid fr om SARS-CoV-2 in a nasopharyngeal swab specimen collec gale from individual s suspected of COVID-19 by the ir healthcare provider. NED (test code = This test has been NED) authorized by FDA under an EUA for use by authorized laboratories. This test is only authorized for the duration of the declaration that circumstances exist justifying the authorization of emergency use of in vitro diagnostic tests for detection and/or diagnosis of COVID-19 under Section 564(b)(1) of the Federal Food, Drug and Cosmetic Act, 21 U.S.C. § 360bbb-3(b)(1), unless the authorization is terminated or revoked sooner. Fact Sheet for Healthcare Providers: https://www.[employer]ru.com/Documents/Xp ert%20Xpress%20SAR S%20CoV-2/Fact%20S heets/302-3802%20S ARS-COV-2%20HEALTH CARE%20PROVIDERS%2 0FACT%20SHEET.pdf Fact Sheet for Healthcare Patients: https://www.[employer] [place]/Documents/Xp ert%20Xpress%20SAR S%20CoV-2/Fact%20S heets/302-3801%20S ARS-COV-2%20PATIEN T%20FACT%20SHEET.p df Lab Interpretation Normal (test code = 02041-8) [facility]2022-05-27 01:08:43 Test Item Value Reference Interpretation Comments Range SARS-COV2/RT-PCR Negative Negative The SARS-Co V-2 (test code = target nucleic 94716-6) acids are not detected in thi s specimen. Negat ingrid results do not preclude SARS-C oV-2 infection and should not be u sed as the sole bas is for patient management decisions. Nega tive results must be combined with clinical observations, patient history , and epidemiolog ical information. A false negative result may occu r if a specimen is improperly collected, transported or handled. This S ARS CoV-2 test is a rapid, real-lupe e RT-PCR test intended for th e qualitative detection of nucleic acid fr om SARS-CoV-2 in a nasopharyngeal swab specimen collec gale from individual s suspected of COVID-19 by the ir healthcare provider. END (test code = This test has been NED) authorized by FDA under an EUA for use by authorized laboratories. This test is only authorized for the duration of the declaration that circumstances exist justifying the authorization of emergency use of in vitro diagnostic tests for detection and/or diagnosis of COVID-19 under Section 564(b)(1) of the Federal Food, Drug and Cosmetic Act, 21 U.S.C. § 360bbb-3(b)(1), unless the authorization is terminated or revoked sooner. Fact Sheet for Healthcare Providers: https://www.[employer] [place]/Documents/Xp ert%20Xpress%20SAR S%20CoV-2/Fact%20S heets/302-3802%20S ARS-COV-2%20HEALTH CARE%20PROVIDERS%2 0FACT%20SHEET.pdf Fact Sheet for Healthcare Patients: https://www.[employer] [place]/Documents/Xp ert%20Xpress%20SAR S%20CoV-2/Fact%20S heets/302-3801%20S ARS-COV-2%20PATIEN T%20FACT%20SHEET.p df Lab Interpretation Normal (test code = 80134-8) [facility])2022-05-27 01:08:43 Test Item Value Reference Range Interpretation Comments SARS-COV2/RT-PCR Negative Negative The SARS-Co V-2 target (test code = nucleic acids a re not 5167712) detected in thi s specimen. Negative result s do not preclude SARS-C oV-2 infection and s hould not be used as the dinah e basis for patient managem ent decisions. Nega tive results must be combine d with clinical observ ations, patient history , and epidemiological information. A false negativ e result may occur if a spec imen is improperly rima ected, transported or handled. This SARS CoV-2 test is a rapid, real-time RT-PC R test intended for th e qualitative detection of nu cleic acid from SARS-CoV-2 in a nasopharyngeal swab specimen collected from individuals suspected of CO VID-19 by their healthcar e provider. This test has been authorized by FDA under an EUA for use by authorized laboratories. This test is only authorized for the duration of the declaration that circumstances exist justifying the authorization of emergency use of in vitro diagnostic tests for detection and/or diagnosis of COVID-19 under Section 564(b)(1) of the Federal Food, Drug and Cosmetic Act, 21 U.S.C. 360bbb-3(b)(1), unless the authorization is terminated or revoked sooner. Fact Sheet for Healthcare Providers: https://www.[employer] m/Documents/Xpert%20Xpress%20SARS%20CoV-2/Fact%20Sheets/3023802%64NASH-AQA-9%20 HEALTHCARE%20PROVIDERS%20FACT%20SHEET.pdf Fact Sheet for Healthcare Patients: https://www.[employer]/Documents/Xpert%20Xp ress%20SARS%20CoV-2/Fact%20Sheets/302-3801%21NGCZ-UMF-6%20PATIENT%20FACT%20SHEET .pdfCT, CTA [id number] 00:55:00Unlisted Reason for Exam - Click Yes and Enter Reason Below->YesUnlisted Reason for Exam->blood in stool and low hemoglobinRH[facility] CENTERName: NAVNEET VILLAGRAN : 1950 Sex: FFINAL REPORT EXAM/TECHNIQUE: CTA of the abdomen and pelvis with and without contrast. 3-D reconstructions were performed. Dose modulation, iterative reconstruction, and/or weight based adjustment of the mA/kV was utilized to reduce the radiation dose to as low as reasonably achievable. INDICATION: Blood in stool. COMPARISON: None. FINDINGS: Lower thorax: Small right pleural effusion with basilar septal thickening. Cardiomegaly. Liver: Subcentimeter hypoattenuating lesions are too small to characterize. The main portal vein is patent. Biliary: Mural thickening of the gallbladder may be secondary to volume status. There is layering sludge/stone in the gallbladder. Spleen: Unremarkable. Pancreas: Unremarkable. Adrenals: Unremarkable. Kidneys: Bilateral renal atrophy. No hydronephrosis. No focal renal mass. Bowel: Colonic diverticulosis is present without CT findings of diverticulitis. Appendix is normal in appearance. The small bowel and stomach are normal in appearance without fi ndings of obstruction. Lymph nodes: No lymphadenopathy by size criteria. Mesentery: No ascites. No pneumoperitoneum. Pelvis: The uterus is not visualized, possibly surgically absent. No suspicious adnexal mass. The bladder is unremarkable in appearance. Vessels: Unremarkable. Osseous: No acute osseous process. No suspicious osseous lesions. Impression: 1.Pulmonary edema. Right pleural effusion. Muralthickening of the gallbladder is favored to be secondary to volume status, though if there is high clinical concern for acute cholecystitis, consider ultrasound.2.Otherwise, no acute process in the abdomen or pelvis. No active extravasation. Signed: Sebas Starks MDReport Verified Date/Time: 05/27/2022 00:55:38 [facility] [id number] 22:50:41 Test Item Value Reference Range Interpretation Comments TOTAL PROTEIN 6.4 gm/dL 6.0-8.5 (BEAKER) (test code = 770) ALBUMIN (BEAKER) 3.7 g/dL 3.5-5.0 (test code = 1145) ALKALINE 82 U/L 30-115 PHOSPHATASE (BEAKER) (test code = 346) BILIRUBIN TOTAL 0.5 mg/dL 0.1-1.2 (BEAKER) (test code = 377) SODIUM (BEAKER) 140 meq/L 135-148 (test code = 381) POTASSIUM (BEAKER) 3.8 meq/L 3.6-5.5 (test code = 379) CHLORIDE (BEAKER) 100 meq/L 98-106 (test code = 382) CO2 (BEAKER) (test 27 meq/L 20-29 code = 355) BLOOD UREA 34 mg/dL 10-26 H NITROGEN (BEAKER) (test code = 354) CREATININE 4.66 mg/dL 0.50-1.20 H (BEAKER) (test code = 358) GLUCOSE RANDOM 137 mg/dL 70-110 H (BEAKER) (test code = 652) CALCIUM (BEAKER) 9.1 mg/dL 8.5-10.5 (test code = 697) AST (SGOT) 17 U/L 5-40 (BEAKER) (test code = 353) ALT (SGPT) 23 U/L 5-50 (BEAKER) (test code = 347) EGFR (BEAKER) 9 Interpretatio n of eGFR (test code = 1092) mL/min/1.[address] age Description sq m Result G1 Jackie l or high >=90 G2 Mildly decreased 60-89 G3a Mildl y to moderately 45-5 9 G3b Moderately to s everely 30-44 G4 Severl y decreased 15-29 G5 Kidney failure <15Reported eGF R is based on the CKD-EPI 2020 equation that d oes not use a race coefficientEsti mated GFR is not as accur ate as Creatinine Malena celestino in predicting glom erular filtration rate . Estimated GFR is not appl icable for dialysis patien ts [employer] Team Lead ID - tcamachoOperator ID - tcamachoOperator ID - tcamachoOperator ID - tcamachoOperator ID - tcamachoOperator ID - tcamachoOperator ID - tcamachoOperator ID - tcamachoOperator ID - tcamachoOperator ID - tcamachoOperator ID - tcamachoOperator ID - tcamachoOperator ID - tcamachoOperator ID - tcamachoOperator ID - tcamachoOperator ID - tcamachoOperator ID - tcamachoOperator ID - tcamachoOperator ID - tcamacho PROTHROMBIN [id number] 22:42:06 Test Item Value Reference Range Interpretation Comments PROTIME (BEAKER) 11.4 seconds 9.3-12.0 Final Infor mation (test code = 759) (Auto Outp ut) INR (BEAKER) (test 1.04 See_Comment Final Inf ormation code = 370) (Auto Output) [Automated mess age] The system [employer] generated this result transmitted ref erence range: <=5.90. The reference range was not used to int erpret this result as normal/abnormal . RECOMMENDED COUMADIN/WARFARIN INR THERAPY RANGESSTANDARD DOSE: 2.0 - 3.0 Includes: PROPHYLAXIS for venous thrombosis, systemic embolization; TREATMENT for venous thrombosis and/or pulmonary embolus.HIGH RISK: Target INR is 2.5-3.5 for patients with mechanical heart valves.CBC W/PLT COUNT & AUTO [id number] 22:31:19 Test Item Value Reference Range Interpretation Comments WHITE BLOOD CELL COUNT (BEAKER) 5.4 K/ L 4.0-10.0 (test code = 775) RED BLOOD CELL COUNT (BEAKER) 2.15 M/ L 4.00-5.00 L (test code = 761) HEMOGLOBIN (BEAKER) (test code = 7.2 GM/DL 12.0-15.5 L 410) HEMATOCRIT (BEAKER) (test code = 23.0 % 36.0-46.0 L 411) MEAN CORPUSCULAR VOLUME (BEAKER) 107 fL 82-99 H (test code = 753) MEAN CORPUSCULAR HEMOGLOBIN 33.5 pg 27.0-33.0 H (BEAKER) (test code = 751) MEAN CORPUSCULAR HEMOGLOBIN CONC 31.3 GM/DL 32.0-36.0 L (BEAKER) (test code = 752) RED CELL DISTRIBUTION WIDTH 16.7 % 12.0-15.0 H (BEAKER) (test code = 412) PLATELET COUNT (BEAKER) (test 157 K/CU MM 150-430 code = 756) MEAN PLATELET VOLUME (BEAKER) 10.6 fL 6.0-11.5 (test code = 754) NUCLEATED RED BLOOD CELLS 0 /100 WBC 0-0 (BEAKER) (test code = 413) NEUTROPHILS RELATIVE PERCENT 67 % (BEAKER) (test code = 429) LYMPHOCYTES RELATIVE PERCENT 18 % (BEAKER) (test code = 430) MONOCYTES RELATIVE PERCENT 10 % (BEAKER) (test code = 431) EOSINOPHILS RELATIVE PERCENT 4 % (BEAKER) (test code = 432) BASOPHILS RELATIVE PERCENT 1 % (BEAKER) (test code = 437) NEUTROPHILS ABSOLUTE COUNT 3.59 K/ L 1.80-8.00 (BEAKER) (test code = 670) LYMPHOCYTES ABSOLUTE COUNT 0.96 K/ L 1.48-4.50 L (BEAKER) (test code = 414) MONOCYTES ABSOLUTE COUNT (BEAKER) 0.53 K/ L 0.00-1.30 (test code = 415) EOSINOPHILS ABSOLUTE COUNT 0.23 K/ L 0.00-0.50 (BEAKER) (test code = 416) BASOPHILS ABSOLUTE COUNT (BEAKER) 0.04 K/ L 0.00-0.20 (test code = 417) IMMATURE GRANULOCYTES-RELATIVE 0.90 % 0.00-0.00 H PERCENT (BEAKER) (test code = 2801) RAD, CHEST, PA OR AP, 1 [id number] 21:14:00Reason for exam:->SHORTNESS OF BREATH Reason for exam:-> Reason for exam:->RECTAL BLEEDING Should this be performed at the bedside?->Yes [facility] 1950 Sex: FFINAL REPORT EXAM/TECHNIQUE: Single view frontal radiograph of the chest. INDICATION: Shortness of breath. COMPARISON: None. FINDINGS: Devices/Objects: None. Lungs: No focal consolidation. No pleural effusion. No pneumothorax. Heart/Mediastinum: No cardiomegaly. No interstitial thickening. Osseous: No acute osseous process. No suspicious osseous lesion. Upper abdomen: Unremarkable. Impression: No acute cardiopulmonary process. Signed: Sbeas Starks MDRort Verified Date/Time: 05/26/2022 21:14:45 TISSUE [id number] 18:19:45Surgical Pathology Report Case: [id number] Authorizing Provider: Marie Arredondo MD Collected: 06/15/2021 12:00 AM Ordering Location: [facility] Laboratory Received: 04/23/2022 07:39 AM Pathologist: Brook Spangler MD Specimen: Duodenum, duodenal This addendum is issued to report the result of immuno histochemical study for Helicobacter pylori:- NEGATIVE The interpretation of this case included the use of immunohistochemistry or special stains. HELICOBACTER PYLORIImmunohistochemistry technical testing was performed at [facility], Pathology Laboratory where it was developed and its performance characteristics were determined. It has not been cleared or approved by the U.S. Food and Drug Administration. The FDA has determined that such clearance or approval is not necessary. The test is used for clinical purposes. It should not be regarded as investigational or for research.This laboratory is certified under the Clinical Laboratory Improvement Amendments of 1988 (CLIA-88) as qualified to perform high complexity clinical laboratory testing. CPT CODE: 96448 Addendum electronically signed by Brook Spangler MD on 05/01/2022 at 6:19 PMDUODENUM, ENDOSCOPIC BIOPSY: - CONSISTENT WITH GASTRIC HETEROTOPIA WITH CHRONIC INFLAMMATION - NO ACTIVITY SEEN - NO GRANULOMAS, DYSPLASIA OR MALIGNANCY SEEN - IMMUNOHISTOCHEMICAL STAIN FOR HELICOBACTER PYLORI IS BEING DONE; AN ADDENDUM REPORT WILL FOLLOW Signing Pathologist Direct Phone Line: [phone] signed by Brook Spangler MD on 04/28/2022 at 12:56 [id number]. Duodenum.Received in formalin labeledwith the patient's information and labeled "duodenal biopsy" are four fragments of bose-white tissue measuring 0.2 cm in maximum dimension each, submitted entirely in cassette labeled A1. BH/pl PERFORMEDCBC W/PLT COUNT & AUTO [id number] 16:43:36 Test Item Value Reference Range Interpretation Comments WHITE BLOOD CELL COUNT (BEAKER) 5.1 K/ L 4.0-10.0 (test code = 775) RED BLOOD CELL COUNT (BEAKER) 3.22 M/ L 4.00-5.00 L (test code = 761) HEMOGLOBIN (BEAKER) (test code = 10.3 GM/DL 12.0-15.5 L 410) HEMATOCRIT (BEAKER) (test code = 30.9 % 36.0-46.0 L 411) MEAN CORPUSCULAR VOLUME (BEAKER) 96 fL 82-99 (test code = 753) MEAN CORPUSCULAR HEMOGLOBIN 32.0 pg 27.0-33.0 (BEAKER) (test code = 751) MEAN CORPUSCULAR HEMOGLOBIN CONC 33.3 GM/DL 32.0-36.0 (BEAKER) (test code = 752) RED CELL DISTRIBUTION WIDTH 17.4 % 12.0-15.0 H (BEAKER) (test code = 412) PLATELET COUNT (BEAKER) (test 135 K/CU MM 150-430 L code = 756) MEAN PLATELET VOLUME (BEAKER) 9.9 fL 6.0-11.5 (test code = 754) NUCLEATED RED BLOOD CELLS 0 /100 WBC 0-0 (BEAKER) (test code = 413) NEUTROPHILS RELATIVE PERCENT 74 % (BEAKER) (test code = 429) LYMPHOCYTES RELATIVE PERCENT 13 % (BEAKER) (test code = 430) MONOCYTES RELATIVE PERCENT 9 % (BEAKER) (test code = 431) EOSINOPHILS RELATIVE PERCENT 3 % (BEAKER) (test code = 432) BASOPHILS RELATIVE PERCENT 1 % (BEAKER) (test code = 437) NEUTROPHILS ABSOLUTE COUNT 3.79 K/ L 1.80-8.00 (BEAKER) (test code = 670) LYMPHOCYTES ABSOLUTE COUNT 0.66 K/ L 1.48-4.50 L (BEAKER) (test code = 414) MONOCYTES ABSOLUTE COUNT (BEAKER) 0.48 K/ L 0.00-1.30 (test code = 415) EOSINOPHILS ABSOLUTE COUNT 0.14 K/ L 0.00-0.50 (BEAKER) (test code = 416) BASOPHILS ABSOLUTE COUNT (BEAKER) 0.03 K/ L 0.00-0.20 (test code = 417) IMMATURE GRANULOCYTES-RELATIVE 0.80 % 0.00-0.00 H PERCENT (BEAKER) (test code = 2801) LACTATE DEHYDROGENASE (LDH)2022-04-21 16:28:08 Test Item Value Reference Range Interpretation Comments LACTATE DEHYDROGENASE (BEAKER) (test 209 U/L 107-206 H code = 635) CBC W/PLT COUNT & AUTO [id number] 16:24:59 Test Item Value Reference Range Interpretation Comments WHITE BLOOD CELL COUNT (BEAKER) 4.1 K/ L 4.0-10.0 (test code = 775) RED BLOOD CELL COUNT (BEAKER) 2.79 M/ L 4.00-5.00 L (test code = 761) HEMOGLOBIN (BEAKER) (test code = 8.9 GM/DL 12.0-15.5 L 410) HEMATOCRIT (BEAKER) (test code = 26.9 % 36.0-46.0 L 411) MEAN CORPUSCULAR VOLUME (BEAKER) 96 fL 82-99 (test code = 753) MEAN CORPUSCULAR HEMOGLOBIN 31.9 pg 27.0-33.0 (BEAKER) (test code = 751) MEAN CORPUSCULAR HEMOGLOBIN CONC 33.1 GM/DL 32.0-36.0 (BEAKER) (test code = 752) RED CELL DISTRIBUTION WIDTH 17.5 % 12.0-15.0 H (BEAKER) (test code = 412) PLATELET COUNT (BEAKER) (test 112 K/CU MM 150-430 L code = 756) MEAN PLATELET VOLUME (BEAKER) 10.0 fL 6.0-11.5 (test code = 754) NUCLEATED RED BLOOD CELLS 0 /100 WBC 0-0 (BEAKER) (test code = 413) NEUTROPHILS RELATIVE PERCENT 63 % (BEAKER) (test code = 429) LYMPHOCYTES RELATIVE PERCENT 19 % (BEAKER) (test code = 430) MONOCYTES RELATIVE PERCENT 13 % (BEAKER) (test code = 431) EOSINOPHILS RELATIVE PERCENT 3 % (BEAKER) (test code = 432) BASOPHILS RELATIVE PERCENT 1 % (BEAKER) (test code = 437) NEUTROPHILS ABSOLUTE COUNT 2.60 K/ L 1.80-8.00 (BEAKER) (test code = 670) LYMPHOCYTES ABSOLUTE COUNT 0.79 K/ L 1.48-4.50 L (BEAKER) (test code = 414) MONOCYTES ABSOLUTE COUNT (BEAKER) 0.53 K/ L 0.00-1.30 (test code = 415) EOSINOPHILS ABSOLUTE COUNT 0.14 K/ L 0.00-0.50 (BEAKER) (test code = 416) BASOPHILS ABSOLUTE COUNT (BEAKER) 0.02 K/ L 0.00-0.20 (test code = 417) IMMATURE GRANULOCYTES-RELATIVE 0.50 % 0.00-0.00 H PERCENT (BEAKER) (test code = 2801) [id number] 16:22:21 Test Item Value Reference Range Interpretation Comments PHOSPHORUS (BEAKER) (test code = 5.5 mg/dL 2.5-4.5 H 604) [id number] 16:22:11 Test Item Value Reference Range Interpretation Comments MAGNESIUM (BEAKER) (test code = 2.3 mg/dL 1.5-3.0 627) COMPREHENSIVE METABOLIC [id number] 16:22:05 Test Item Value Reference Range Interpretation Comments TOTAL PROTEIN 5.4 gm/dL 6.0-8.5 L (BEAKER) (test code = 770) ALBUMIN (BEAKER) 3.1 g/dL 3.5-5.0 L (test code = 1145) ALKALINE 30 U/L 30-115 PHOSPHATASE (BEAKER) (test code = 346) BILIRUBIN TOTAL 0.6 mg/dL 0.1-1.2 (BEAKER) (test code = 377) SODIUM (BEAKER) 136 meq/L 135-148 (test code = 381) POTASSIUM (BEAKER) 4.8 meq/L 3.6-5.5 (test code = 379) CHLORIDE (BEAKER) 100 meq/L 98-106 (test code = 382) CO2 (BEAKER) (test 24 meq/L 20-29 code = 355) BLOOD UREA 60 mg/dL 10-26 H NITROGEN (BEAKER) (test code = 354) CREATININE 7.97 mg/dL 0.50-1.20 H (BEAKER) (test code = 358) GLUCOSE RANDOM 233 mg/dL 70-110 H (BEAKER) (test code = 652) CALCIUM (BEAKER) 8.9 mg/dL 8.5-10.5 (test code = 697) AST (SGOT) 13 U/L 5-40 (BEAKER) (test code = 353) ALT (SGPT) 11 U/L 5-50 (BEAKER) (test code = 347) EGFR (BEAKER) 5 Interpretatio n of eGFR (test code = 1092) mL/min/1.[address] age Description sq m Result G1 Jackie l or high >=90 G2 Mildly decreased 60-89 G3a Mildl y to moderately 45-5 9 G3b Moderately to s everely 30-44 G4 Severl y decreased 15-29 G5 Kidney failure <15Reported eGF R is based on the CKD-EPI 2021 equation that d oes not use a race coefficientEsti mated GFR is not as accur ate as Creatinine Malena tirado in predicting glom erular filtration rate . Estimated GFR is not appl icable for dialysis patien ts CBC W/PLT COUNT & AUTO [id number] 16:11:22 Test Item Value Reference Range Interpretation Comments WHITE BLOOD CELL COUNT (BEAKER) 7.1 K/ L 4.0-10.0 (test code = 775) RED BLOOD CELL COUNT (BEAKER) 3.23 M/ L 4.00-5.00 L (test code = 761) HEMOGLOBIN (BEAKER) (test code = 10.4 GM/DL 12.0-15.5 L 410) HEMATOCRIT (BEAKER) (test code = 30.4 % 36.0-46.0 L 411) MEAN CORPUSCULAR VOLUME (BEAKER) 94 fL 82-99 (test code = 753) MEAN CORPUSCULAR HEMOGLOBIN 32.2 pg 27.0-33.0 (BEAKER) (test code = 751) MEAN CORPUSCULAR HEMOGLOBIN CONC 34.2 GM/DL 32.0-36.0 (BEAKER) (test code = 752) RED CELL DISTRIBUTION WIDTH 17.9 % 12.0-15.0 H (BEAKER) (test code = 412) PLATELET COUNT (BEAKER) (test 149 K/CU MM 150-430 L code = 756) MEAN PLATELET VOLUME (BEAKER) 10.1 fL 6.0-11.5 (test code = 754) NUCLEATED RED BLOOD CELLS 0 /100 WBC 0-0 (BEAKER) (test code = 413) NEUTROPHILS RELATIVE PERCENT 79 % (BEAKER) (test code = 429) LYMPHOCYTES RELATIVE PERCENT 9 % (BEAKER) (test code = 430) MONOCYTES RELATIVE PERCENT 9 % (BEAKER) (test code = 431) EOSINOPHILS RELATIVE PERCENT 2 % (BEAKER) (test code = 432) BASOPHILS RELATIVE PERCENT 0 % (BEAKER) (test code = 437) NEUTROPHILS ABSOLUTE COUNT 5.55 K/ L 1.80-8.00 (BEAKER) (test code = 670) LYMPHOCYTES ABSOLUTE COUNT 0.62 K/ L 1.48-4.50 L (BEAKER) (test code = 414) MONOCYTES ABSOLUTE COUNT (BEAKER) 0.64 K/ L 0.00-1.30 (test code = 415) EOSINOPHILS ABSOLUTE COUNT 0.14 K/ L 0.00-0.50 (BEAKER) (test code = 416) BASOPHILS ABSOLUTE COUNT (BEAKER) 0.03 K/ L 0.00-0.20 (test code = 417) IMMATURE GRANULOCYTES-RELATIVE 1.00 % 0.00-0.00 H PERCENT (BEAKER) (test code = 2801) BASIC METABOLIC [id number] 16:04:44 Test Item Value Reference Range Interpretation Comments SODIUM (BEAKER) 137 meq/L 135-148 (test code = 381) POTASSIUM 3.7 meq/L 3.6-5.5 (BEAKER) (test code = 379) CHLORIDE (BEAKER) 101 meq/L 98-106 (test code = 382) CO2 (BEAKER) 24 meq/L 20-29 (test code = 355) BLOOD UREA 40 mg/dL 10-26 H NITROGEN (BEAKER) (test code = 354) CREATININE 5.11 mg/dL 0.50-1.20 H (BEAKER) (test code = 358) GLUCOSE RANDOM 97 mg/dL 70-110 (BEAKER) (test code = 652) CALCIUM (BEAKER) 8.8 mg/dL 8.5-10.5 (test code = 697) EGFR (BEAKER) 8 Interpretatio n of eGFR (test code = mL/min/1.73 values Stage De scription 1092) sq m Result G1 Jackie l or high >=90 G2 Mildly decreased 60-89 G3a Mildl y to moderately 45-5 9 G3b Moderately to s everely 30-44 G4 Severl y decreased 15-29 G5 Kidney failure <15Reported eGF R is based on the CKD-EPI 2020 equation that d oes not use a race coefficientEsti mated GFR is not as accur ate as Creatinine Malena celestino in predicting glom erular filtration rate . Estimated GFR is not appl icable for dialysis patien ts HEPATITIS B SURFACE [id number] 16:00:22 Test Item Value Reference Range Interpretation Comments HEPATITIS B SURFACE ANTIGEN (2) Nonreactive Nonreactive (BEAKER) (test code = 2585) CBC W/PLT COUNT & AUTO [id number] 15:51:06 Test Item Value Reference Range Interpretation Comments WHITE BLOOD CELL COUNT (BEAKER) 6.0 K/ L 4.0-10.0 (test code = 775) RED BLOOD CELL COUNT (BEAKER) 2.16 M/ L 4.00-5.00 L (test code = 761) HEMOGLOBIN (BEAKER) (test code = 7.2 GM/DL 12.0-15.5 L 410) HEMATOCRIT (BEAKER) (test code = 21.7 % 36.0-46.0 L 411) MEAN CORPUSCULAR VOLUME (BEAKER) 101 fL 82-99 H (test code = 753) MEAN CORPUSCULAR HEMOGLOBIN 33.3 pg 27.0-33.0 H (BEAKER) (test code = 751) MEAN CORPUSCULAR HEMOGLOBIN CONC 33.2 GM/DL 32.0-36.0 (BEAKER) (test code = 752) RED CELL DISTRIBUTION WIDTH 17.6 % 12.0-15.0 H (BEAKER) (test code = 412) PLATELET COUNT (BEAKER) (test 140 K/CU MM 150-430 L code = 756) MEAN PLATELET VOLUME (BEAKER) 10.0 fL 6.0-11.5 (test code = 754) NUCLEATED RED BLOOD CELLS 0 /100 WBC 0-0 (BEAKER) (test code = 413) NEUTROPHILS RELATIVE PERCENT 77 % (BEAKER) (test code = 429) LYMPHOCYTES RELATIVE PERCENT 13 % (BEAKER) (test code = 430) MONOCYTES RELATIVE PERCENT 7 % (BEAKER) (test code = 431) EOSINOPHILS RELATIVE PERCENT 2 % (BEAKER) (test code = 432) BASOPHILS RELATIVE PERCENT 0 % (BEAKER) (test code = 437) NEUTROPHILS ABSOLUTE COUNT 4.57 K/ L 1.80-8.00 (BEAKER) (test code = 670) LYMPHOCYTES ABSOLUTE COUNT 0.77 K/ L 1.48-4.50 L (BEAKER) (test code = 414) MONOCYTES ABSOLUTE COUNT (BEAKER) 0.44 K/ L 0.00-1.30 (test code = 415) EOSINOPHILS ABSOLUTE COUNT 0.11 K/ L 0.00-0.50 (BEAKER) (test code = 416) BASOPHILS ABSOLUTE COUNT (BEAKER) 0.02 K/ L 0.00-0.20 (test code = 417) IMMATURE GRANULOCYTES-RELATIVE 1.00 % 0.00-0.00 H PERCENT (BEAKER) (test code = 2801) TROPONIN [id number] 15:47:42 Test Item Value Reference Range Interpretation Comments TROPONIN I (BEAKER) (test code = 0.04 ng/mL 0.00-0.15 397) Troponin I (TnI) levels must be interpreted in the context of the presenting symptoms and the clinical findings. Elevated TnI levels indicate myocardial damage, but are not specific for ischemic heart disease. Elevated TnI levels are seen in patients with other cardiac conditions (including myocarditis and congestive heart failure), and slight TnI elevations occur in patients with other conditions, including sepsis, renal failure, acidosis, acute neurological disease, and persistent tachyarrhythmia.CBC W/PLT COUNT & AUTO DIFFERENTIAL 2022-04-21 15:45:15 Test Item Value Reference Range Interpretation Comments WHITE BLOOD CELL COUNT (BEAKER) 7.3 K/ L 4.0-10.0 (test code = 775) RED BLOOD CELL COUNT (BEAKER) 2.01 M/ L 4.00-5.00 L (test code = 761) HEMOGLOBIN (BEAKER) (test code = 6.7 GM/DL 12.0-15.5 L 410) HEMATOCRIT (BEAKER) (test code = 20.4 % 36.0-46.0 LL 411) MEAN CORPUSCULAR VOLUME (BEAKER) 102 fL 82-99 H (test code = 753) MEAN CORPUSCULAR HEMOGLOBIN 33.3 pg 27.0-33.0 H (BEAKER) (test code = 751) MEAN CORPUSCULAR HEMOGLOBIN CONC 32.8 GM/DL 32.0-36.0 (BEAKER) (test code = 752) RED CELL DISTRIBUTION WIDTH 17.2 % 12.0-15.0 H (BEAKER) (test code = 412) PLATELET COUNT (BEAKER) (test 167 K/CU MM 150-430 code = 756) MEAN PLATELET VOLUME (BEAKER) 10.1 fL 6.0-11.5 (test code = 754) NUCLEATED RED BLOOD CELLS 0 /100 WBC 0-0 (BEAKER) (test code = 413) NEUTROPHILS RELATIVE PERCENT 68 % (BEAKER) (test code = 429) LYMPHOCYTES RELATIVE PERCENT 20 % (BEAKER) (test code = 430) MONOCYTES RELATIVE PERCENT 8 % (BEAKER) (test code = 431) EOSINOPHILS RELATIVE PERCENT 2 % (BEAKER) (test code = 432) BASOPHILS RELATIVE PERCENT 0 % (BEAKER) (test code = 437) NEUTROPHILS ABSOLUTE COUNT 4.98 K/ L 1.80-8.00 (BEAKER) (test code = 670) LYMPHOCYTES ABSOLUTE COUNT 1.48 K/ L 1.48-4.50 (BEAKER) (test code = 414) MONOCYTES ABSOLUTE COUNT (BEAKER) 0.61 K/ L 0.00-1.30 (test code = 415) EOSINOPHILS ABSOLUTE COUNT 0.12 K/ L 0.00-0.50 (BEAKER) (test code = 416) BASOPHILS ABSOLUTE COUNT (BEAKER) 0.02 K/ L 0.00-0.20 (test code = 417) IMMATURE GRANULOCYTES-RELATIVE 1.00 % 0.00-0.00 H PERCENT (BEAKER) (test code = 2801) [id number] 15:41:35 Test Item Value Reference Range Interpretation Comments PHOSPHORUS (BEAKER) (test code = 6.9 mg/dL 2.5-4.5 H 604) [id number] 15:41:29 Test Item Value Reference Range Interpretation Comments MAGNESIUM (BEAKER) (test code = 1.9 mg/dL 1.5-3.0 627) COMPREHENSIVE METABOLIC [id number] 15:41:24 Test Item Value Reference Range Interpretation Comments TOTAL PROTEIN 5.8 gm/dL 6.0-8.5 L (BEAKER) (test code = 770) ALBUMIN (BEAKER) 3.4 g/dL 3.5-5.0 L (test code = 1145) ALKALINE 53 U/L 30-115 PHOSPHATASE (BEAKER) (test code = 346) BILIRUBIN TOTAL 0.5 mg/dL 0.1-1.2 (BEAKER) (test code = 377) SODIUM (BEAKER) 142 meq/L 135-148 (test code = 381) POTASSIUM (BEAKER) 3.7 meq/L 3.6-5.5 (test code = 379) CHLORIDE (BEAKER) 107 meq/L 98-106 H (test code = 382) CO2 (BEAKER) (test 19 meq/L 20-29 L code = 355) BLOOD UREA 75 mg/dL 10-26 H NITROGEN (BEAKER) (test code = 354) CREATININE 8.76 mg/dL 0.50-1.20 H (BEAKER) (test code = 358) GLUCOSE RANDOM 66 mg/dL 70-110 L (BEAKER) (test code = 652) CALCIUM (BEAKER) 9.2 mg/dL 8.5-10.5 (test code = 697) AST (SGOT) 20 U/L 5-40 (BEAKER) (test code = 353) ALT (SGPT) 14 U/L 5-50 (BEAKER) (test code = 347) EGFR (BEAKER) 4 Interpretati on of eGFR (test code = 1092) mL/min/1.[address] age Description sq m Result G1 Jackie l or high >=90 G2 Mildly decreased 60-89 G3a Mildl y to moderately 45-5 9 G3b Moderately to s everely 30-44 G4 Severl y decreased 15-29 G5 Kidney failure <15Reported eGF R is based on the CKD-EPI 2021 equation that d oes not use a race coefficientEsti mated GFR is not as accur ate as Creatinine Malena celestino in predicting glom erular filtration rate . Estimated GFR is not appl icable for dialysis patien ts HEPATITIS B CORE ANTIBODY, [id number] 17:15:27 Test Item Value Reference Range Interpretation Comments HEPATITIS B CORE IGM ANTIBODY Nonreactive Nonreactive ([facility]) (test code = 645) [employer] Team Lead ID - [id number] [id number] 14:18:00 Test Item Value Reference Range Interpretation Comments POC-GLUCOSE METER 190 mg/dL 70-[address] [facility] [address] ([facility]) (test code JUANJO [place] = [address]) [place] [id number]
[2023-04-03 14:55] LABS: Absolute Lymphocytes (CBC) 0.9 K/uL (0.7-4.9); Hematocrit 21.1 % (36.0-45.0); MCV 101.9 fL (80-100); MPV 7.5 fL (7.6-11.3); Platelets 177 thou/uL (152-406); RBC Red Blood Cell Count 2.07 M/uL (3.86-4.86)
[2023-04-03 15:08] LABS: Protime INR 0.96
[2023-04-03 15:13] LABS: Potassium 3.4 mEq/L (3.5-5.1)
--- NOTE | 2023-04-03 15:32 | EDPHYS ---
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 15:24 Patient sent in by her overlocker after dialysis for downtrending hemoglobin over the rn last couple weeks. Patient has known angiodysplasia and has had intestinal bleeding in the past. Reports dark stool but states takes iron supplementation. No trauma. No fever. No hematemesis. No gross blood in the stool. Does report generalized weakness and fatigue with shortness of breath upon exertion.. Onset: The symptoms/episode began/occurred at an unknown time. Severity of symptoms: At their worst the symptoms were moderate in the emergency department the symptoms are unchanged. The patient has experienced similar episodes in the past. The patient has been recently seen by a physician:. Historical: - Allergies: 14:29 CHLORAMPHENICOL; hb 14:29 Latex; hb 14:29 PENICILLINS; hb 14:29 Zofran or Morphine; hb - PMHx: 14:29 Hypertension; Diabetes - NIDDM; kidney disease; MWF Dialysis; Anemia; hb - PSHx: 14:29 LUE dialysis access; hb - Immunization history:: Adult Immunizations up to date. - Social history:: Smoking status: Patient denies any tobacco usage or history of. - Family history:: not pertinent. - Hospitalizations: : No recent hospitalization is reported. ROS: 15:24 Constitutional: Negative for fever, chills, and weight loss, Cardiovascular: Negative rn for chest pain, palpitations, and edema, Respiratory: Positive for shortness of breath with exertion Abdomen/GI: Negative for abdominal pain, nausea, vomiting, diarrhea, and constipation, MS/Extremity: Negative for injury and deformity, Skin: Negative for injury, rash, and discoloration, Neuro: Positive for generalized weakness Exam: 15:24 Constitutional: This is a well developed, well nourished patient who is awake, alert, rn and in no acute distress. Head/Face: Normocephalic, atraumatic. Eyes: Pale conjunctiva Cardiovascular: Regular rate and rhythm. No pulse deficits. Respiratory: Mild tachypnea Abdomen/GI: Soft, non-tender Skin: Warm, dry MS/ Extremity: Pulses equal, no cyanosis. Neuro: Awake and alert, GCS 15 Vital Signs: 14:27 BP 150 / 56; Pulse 72; Resp 17; Temp 97.7(O); Pulse Ox 98% on R/A; Weight 68.04 kg; hb Height 5 ft. 4 in. ; Pain 4/10; 15:30 BP 134 / 50; Pulse 84; Resp 16; Pulse Ox 98% on R/A; Pain 0/10; mb9 16:15 BP 148 / 56; Pulse 86; Resp 18; Pulse Ox 96% on R/A; mb9 17:10 BP 151 / 75; Pulse 86; Resp 16; Pulse Ox 97% on R/A; mb9 17:35 BP 141 / 57; Pulse 84; Resp 18; Temp 97.3(T); Pulse Ox 97% on R/A; mb9 17:40 BP 142 / 57; Pulse 83; Resp 16; Temp 97.3; Pulse Ox 98% on R/A; mb9 17:45 BP 142 / 54; Pulse 86; Resp 16; Temp 97.3; Pulse Ox 99% on R/A; mb9 17:50 BP 152 / 58; Pulse 87; Resp 18; Temp 97.5; Pulse Ox 100% on R/A; mb9 14:27 Body Mass Index 25.75 (68.04 kg, 162.56 cm) hb 14:27 Pain Scale: Adult hb 15:30 Pain Scale: Adult mb9 17:35 baseline for adminstration of RBCS mb9 MDM: 14:24 Patient medically screened. rn 15:24 Differential Diagnosis Acute on chronic anemia, GI bleed, anemia of chronic disease. rn Data reviewed: vital signs, nurses notes, lab test result(s), and as a result, I will admit patient. Consideration of Admission/Observation Patient was admitted/placed on observation. Escalation of care including admission/observation considered. Management of patient was discussed with the following: Hospitalist: . Counseling: I had a detailed discussion with the patient and/or guardian regarding the historical points, exam findings, and any diagnostic results supporting the discharge/admit diagnosis, lab results, radiology results, the need for further work-up and treatment in the hospital. Response to treatment: There is no appreciated change of the patient's symptoms at this time, and as a result, I will admit patient. ED course: Patient with downtrending hemoglobin, on top of anemia of chronic disease. Patient with symptomatic anemia. Sent in for blood transfusion and further work-up. Will admit to the hospitalist service.. 04/03 14:30 Order name: Type And Screen rn 04/03 14:30 Order name: CBC with Diff; Complete Time: 15:23 rn 04/03 14:30 Order name: Basic Metabolic Panel; Complete Time: 15:23 rn 04/03 14:30 Order name: Protime (+inr); Complete Time: 15:23 rn 04/03 14:30 Order name: Ptt, Activated; Complete Time: 15:23 rn 04/03 16:18 Order name: Bb Add On eb 04/03 16:42 Order name: Packed RBC Leukored EDMS 04/03 17:04 Order name: Celiac Disease Comp Panel EDMS 04/03 17:04 Order name: Haptoglobin EDMS 04/03 17:04 Order name: Lactic Dehydrogenase EDMS 04/03 17:04 Order name: Protein Electo w/M Manuel Serum EDMS 04/03 17:04 Order name: Retic Count EDMS 04/03 17:04 Order name: Transferrin Sat/Iron Binding EDMS 04/03 17:04 Order name: Urinalysis w/ reflexes EDMS 04/03 17:04 Order name: Vitamin B12 Level EDMS 04/03 17:04 Order name: CBC with Automated Diff EDMS 04/03 17:04 Order name: CBC with Automated Diff EDMS 04/03 17:04 Order name: Comprehensive Metabolic Panel EDMS 04/03 17:04 Order name: Comprehensive Metabolic Panel EDMS 04/03 17:04 Order name: Magnesium EDMS 04/03 17:04 Order name: Magnesium EDMS 04/03 17:04 Order name: Phosphorus EDMS 04/03 17:04 Order name: Phosphorus EDMS 04/03 17:20 Order name: Glucose, Ancillary Testing EDMS 04/03 14:31 Order name: XRAY Chest (1 view); Complete Time: 16:19 rn 04/03 14:31 Order name: EKG; Complete Time: 14:31 rn 04/03 14:30 Order name: IV Start; Complete Time: 14:47 rn 04/03 14:31 Order name: EKG - Nurse/Tech; Complete Time: 14:47 rn Administered Medications: No medications were administered Disposition Summary: 04/03/23 15:31 Hospitalization Ordered Notes: Hospitalization Status: Inpatient Admission rn Location: Telemetry/MedSurg (Inpatient) rn Condition: Stable rn Problem: an ongoing problem rn Symptoms: are unchanged rn Bed/Room Type: Standard rn Provider: Balaji Philippe(04/03/23 15:43) rn Room Assignment: 215(04/03/23 17:30) dw Diagnosis - Anemia, unspecified - symptomatic rn - Anemia in other chronic diseases classified elsewhere rn - End stage renal disease rn Forms: - Medication Reconciliation Form rn - SBAR form rn - Leadership Thank You Letter rn Signatures: Dispatcher [facility] Sabina Hernandez RN RN Sven Mujica MD MD rn Baxter, Heather, RN RN hb Corrections: (The following items were deleted from the chart) 15:43 15:31 Abhishek Buckley rn rn 17:04 17:04 Iron ordered. [facility] ED[facility] 17:30 15:31 rn dw
--- NOTE | 2023-04-03 15:32 | ER ---
Nurse's Notes [facility] Name: Tracy Butt Age: 72 yrs Sex: Female : 1950 Arrival Date: 04/03/2023 Time: 14:12 Bed 16 Private MD: Diagnosis: Anemia, unspecified-symptomatic;Anemia in other chronic diseases classified elsewhere;End stage renal disease Presentation: 04/03 14:27 Chief complaint: Sent by Dr. Fields for low hemoglobin. Hx of anemia + blood hb transfusions, HD - MWF, came to ED after HD completed. Pt c/o generalized weakness and malaise. Coronavirus screen: At this time, the client does not indicate any symptoms associated with coronavirus-19. Ebola Screen: No symptoms or risks identified at this time. Initial Sepsis Screen: Does the patient meet any 2 criteria? No. Patient's initial sepsis screen is negative. Does the patient have a suspected source of infection? No. Patient's initial sepsis screen is negative. Risk Assessment: Do you want to hurt yourself or someone else? Patient reports no desire to harm self or others. Onset of symptoms was April 03, 2023. 14:27 Method Of Arrival: Wheelchair hb 14:27 Acuity: ANTHONY 3 hb Historical: - Allergies: 14:29 CHLORAMPHENICOL; hb 14:29 Latex; hb 14:29 PENICILLINS; hb 14:29 Zofran or Morphine; hb - PMHx: 14:29 Hypertension; Diabetes - NIDDM; kidney disease; MWF Dialysis; Anemia; hb - PSHx: 14:29 LUE dialysis access; hb - Immunization history:: Adult Immunizations up to date. - Social history:: Smoking status: Patient denies any tobacco usage or history of. - Family history:: not pertinent. - Hospitalizations: : No recent hospitalization is reported. Screenin:30 [facility] ED Fall Risk Assessment (Adult) History of falling in the last 3 months, mb9 including since admission No falls in past 3 months (0 pts) Confusion or Disorientation No (0 pts) Intoxicated or Sedated No (0 pts) Impaired Gait No (0 pts) Mobility Assist Device Used No (0 pt) Altered Elimination No (0 pt) Score/Fall Risk Level 0 - 2 = Low Risk Oriented to surroundings, Maintained a safe environment, Educated pt \\T\\ family on fall prevention, incl call for assistance when getting out of bed. Abuse screen: Denies threats or abuse. Nutritional screening: No deficits noted. Tuberculosis screening: No symptoms or risk factors identified. Assessment: 14:29 General: Appears in no apparent distress. Behavior is calm, cooperative. Pain: mb9 Complains of pain in nose Quality of pain is described as throbbing. Neuro: Harrington Agitation-Sedation Scale (RASS): 0 - Alert and Calm Level of Consciousness is awake, alert, obeys commands, Oriented to person, place, time, situation, Appropriate for age Reports dizziness, weakness. Cardiovascular: Heart tones S1 S2 present. Respiratory: Reports shortness of breath Airway is patent Respiratory effort is even, unlabored, Respiratory pattern is regular, symmetrical, Breath sounds are clear bilaterally. GI: Abdomen is round non-distended, Bowel sounds present X 4 quads. Abd is soft and non tender X 4 quads. Reports black stool. : No signs and/or symptoms were reported regarding the genitourinary system. EENT: No signs and/or symptoms were reported regarding the EENT system. Derm: Skin is intact, Skin is dry, Skin is pale, Skin temperature is cool. Musculoskeletal: Range of motion: intact in all extremities. 15:29 Reassessment: Pt's daughter called demanding results and to be told whether the pt is jl7 to receive a blood transfusion. Daughter states "They don't transfuse unless it's less than 6.9 so I need to know if she is getting a transfusion or if I need to find someone to come get her." This nurse informed pt's daughter that not all results are back and pt's daughter refused to allow the completion of this nurse's explanation of the process of care yelling "I've already seen the results and I need to know whether she's getting a blood transfusion or not." This nurse asked pt's daughter if someone was rude to her or yelled at her and pt's daughter continued to yell and state that she just want's an answer. This nurse informed pt's daughter that I do not know at this time due to not all results being back, currently do not have results for chest x-ray or type \\T\\ screen. This nurse asked pt's daughter is she was coming to be with the pt and pt's daughter stated "I have better things to do." This nurse attempted to instruct pt's daughter to call back in about an hour to ensure all results are back so that we may fully answer her questions but pt's daughter hung up the phone. 15:30 Reassessment: No changes from previously documented assessment. Patient and/or family mb9 updated on plan of care and expected duration. Pain level reassessed. Patient is alert, oriented x 3, equal unlabored respirations, skin warm/dry/pink. 16:35 Reassessment: No changes from previously documented assessment. Patient and/or family mb9 updated on plan of care and expected duration. Pain level reassessed. Patient is alert, oriented x 3, equal unlabored respirations, skin warm/dry/pink. 17:10 Reassessment: Dr. Philippe at bedside assessing pt for admission. Pt requesting to eat, jl7 Dr. Philippe gave VO for clear liquid diet. 17:35 Reassessment: Administration of 1st unit of RBCs initiated. mb9 17:55 Reassessment: Attempted to give report to admitting nurse Saniya. States she will call mb9 back. 18:25 Reassessment: Attempted to give report to admitting nurse. mb9 18:45 Reassessment: Bedside report given to PARVIN Faye. mb9 Vital Signs: 14:27 BP 150 / 56; Pulse 72; Resp 17; Temp 97.7(O); Pulse Ox 98% on R/A; Weight 68.04 kg; hb Height 5 ft. 4 in. ; Pain 4/10; 15:30 BP 134 / 50; Pulse 84; Resp 16; Pulse Ox 98% on R/A; Pain 0/10; mb9 16:15 BP 148 / 56; Pulse 86; Resp 18; Pulse Ox 96% on R/A; mb9 17:10 BP 151 / 75; Pulse 86; Resp 16; Pulse Ox 97% on R/A; mb9 17:35 BP 141 / 57; Pulse 84; Resp 18; Temp 97.3(T); Pulse Ox 97% on R/A; mb9 17:40 BP 142 / 57; Pulse 83; Resp 16; Temp 97.3; Pulse Ox 98% on R/A; mb9 17:45 BP 142 / 54; Pulse 86; Resp 16; Temp 97.3; Pulse Ox 99% on R/A; mb9 17:50 BP 152 / 58; Pulse 87; Resp 18; Temp 97.5; Pulse Ox 100% on R/A; mb9 14:27 Body Mass Index 25.75 (68.04 kg, 162.56 cm) hb 14:27 Pain Scale: Adult hb 15:30 Pain Scale: Adult mb9 17:35 baseline for adminstration of RBCS mb9 ED Course: 14:19 Patient arrived in ED. mr 14:21 Venus Gonzalez, RN is Primary Nurse. mb9 14:21 Arm band placed on. mb9 14:21 Placed in gown. Bed in low position. Call light in reach. Side rails up X 1. Client mb9 placed on continuous cardiac and pulse oximetry monitoring. NIBP monitoring applied. daily release and dupe printer on. 14:24 Sven Osuna MD is Attending Physician. rn 14:29 Triage completed. hb 14:30 No provider procedures requiring assistance completed. mb9 14:30 Inserted saline lock: 20 gauge in right antecubital area, using aseptic technique. mb9 Blood collected. 14:30 EKG done, by ED staff, reviewed by Sven Osuna MD. mb9 14:47 Protime (+inr) Sent. mb9 14:47 Ptt, Activated Sent. mb9 14:47 Basic Metabolic Panel Sent. mb9 14:47 CBC with Diff Sent. mb9 15:04 XRAY Chest (1 view) In Process Unspecified. EDMS 15:30 Abhishek Buckley MD is Hospitalizing Provider. rn 15:43 Balaji Philippe is Hospitalizing Provider. rn 17:53 Patient admitted, IV remains in place. mb9 Administered Medications: No medications were administered Medication: 14:30 VIS not applicable for this client. mb9 Outcome: 15:31 Decision to Hospitalize by Provider. rn 18:28 Patient left the ED. mb9 18:45 Admitted to Med/surg accompanied by nurse, via stretcher, room 215, with chart, mb9 18:45 Condition: stable 18:45 Instructed on the need for admit, mb9 Signatures: Dispatcher [employer] Venus Baker, Reg Reg mr Sven Osuna MD MD rn Baxter, Heather RN Elsi Thompson RN RN jl7 Breneman, Columba, RN RN mb9 Corrections: (The following items were deleted from the chart) 17:10 14:29 GI: Abdomen is round non-distended, Bowel sounds present X 4 quads. Abd is soft mb9 and non tender X 4 quads. mb9 04/04 12:31 10 18:01 Reassessment: Attempted to give report to admitting nurse Saniya. States mb9 she will call back mb9
--- NOTE | 2023-04-03 16:17 | RAD REPORT ---
EXAM DESCRIPTION: Michelle Single View04/03/2023 3:05 pm CLINICAL HISTORY: Shortness of COMPARISON: March 30, 2023 FINDINGS: Bilateral pulmonary opacities partially resolved. Heart is mildly enlarged
[2023-04-03] MEDS ORDERED: ACETAMINOPHEN 500 MG TAB PO PRN (16:54)
[2023-04-03] MEDS ORDERED: NA CHLORIDE 0.9% 250 ML ONE (17:30)
--- NOTE | 2023-04-03 17:31 | P.HP ---
Certification for Inpatient Patient admitted to: Observation With expected LOS: <2 Midnights Practitioner: I am a practitioner with admitting privileges, knowledge of patient current condition, hospital course, and medical plan of care. 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 Fields because of progressive drop in hemoglobin. Patient was referred from the hemodialysis center to the emergency department. She completed her hemodialysis today. Patient denies any complaint. She denies any shortness of breath, or fatigue or chest pain or palpitation. Hemoglobin check in the ED is 7.4. It was 8.3 only 2 days ago. Patient was hospitalized for further management. Allergies chloramphenicol Allergy (Verified 09/13/20 12:02) Anaphylaxis morphine Allergy (Verified 09/13/20 12:02) Itching/Hives/Rash ondansetron [From Zofran] Allergy (Verified 09/13/20 12:02) Itching/Hives/Rash Penicillins Allergy (Verified 09/13/20 12:02) Anaphylaxis Home Medications: Atorvastatin Calcium 20 mg PO BEDTIME 07/31/20 Carvedilol [Coreg] 25 mg PO BIDWM 07/31/20 Cholecalciferol (Vitamin D3) [Vitamin D3] 5,000 unit PO DAILY 07/31/20 Glimepiride 4 mg PO DAILY 07/31/20 Ketorolac Opth [Acular 0.5% Opth Drops*] 1 drop OPTH BID 07/31/20 Amlodipine Besylate 10 mg PO DAILY 03/18/22 Hydralazine [Apresoline*] 25 mg PO SEECOM 03/18/22 Hydrocodone Bit/Acetaminophen [Hydrocodon-Acetaminophen 5-325] 1 tab PO PRN PRN MDD 2 03/18/22 Isosorbide Mononitrate [Isosorbide Mononitrate ER] 30 mg PO DAILY 03/18/22 Ascorbic Acid [C-1000] 1,000 mg PO DAILY 09/11/22 Aspirin [Aspirin EC 81 MG] 81 mg PO SEECOM 09/11/22 Brimonidine Tartrate [Alphagan P] 1 gtt OP BID 09/11/22 Ferric Citrate [Auryxia] 3 tab PO TIDWM 09/11/22 Folic Acid/Vit B Complex and C [Dialyvite 800 Chewable Wafer] 800 mg PO DAILY 09/11/22 Hydralazine HCl [Apresoline] 50 mg PO SEECOM 09/11/22 Montelukast [Singulair*] 10 mg PO DAILY 09/11/22 Promethazine Tab [Phenergan*] 25 mg PO Q6HP PRN 09/11/22 Famotidine [Pepcid*] 20 mg PO DAILY 10/31/22 Pantoprazole [Protonix Tab*] 40 mg PO DAILY 10/31/22 Methoxy Peg-Epoetin Beta [Mircera] 50 mcg IJ SEECOM 11/01/22 Raw Probiotics 1 cap PO DAILY 11/01/22 levoFLOXacin [Levaquin*] 250 mg PO DAILY@1800 7 Days #7 tab 11/03/22 - Past Medical/Surgical History Diabetic: Yes -: ESRD [place] HD MWF (Dr. Kee) -: NIDDM -: Hypertension -: Anemia chronic disease -: CHRONIC BACK PAIN -: GLUACOMA -: RETINIOPATHY -: SUPERFICIAL BASIL CELL CARCINOMA -: Asthma -: Hysterectomy -: Left total knee -: back surgery -: CATARACT HAMMAD EYES -: LUE HD placed -: 09/09/22 Cervical Myelopathy Psychosocial/ Personal History: Patient lives with her daughter and is retired - Family History Mother -: Heart disease, Diabetes, Stroke Father -: Cancer Sister -: Cancer - Social History Alcohol use: No CD- Drugs: No Caffeine use: Yes Review of Systems Other: Except as documented, all other systems reviewed and negative. Physical Examination - Physical Exam General: Alert, In no apparent distress, Oriented x3 HEENT: Atraumatic, Normocephalic, Mucous membr. moist/pink, Sclerae nonicteric Neck: Supple, JVD not distended Respiratory: Clear to auscultation bilaterally, Normal air movement Cardiovascular: No edema, Regular rate/rhythm, Normal S1 S2 Gastrointestinal: Normal bowel sounds, Soft and benign, Non-distended Musculoskeletal: No swelling, No tenderness Integumentary: Other (Sutured laceration on the bridge of nose) Neurological: Normal speech, Normal strength at 5/5 x4 extr, Cranial nerves 3-12 intact Lymphatics: No axilla or inguinal lymphadenopathy - Studies Laboratory Data (last 24 hrs) 04/03/23 04/03/23 04/03/23 14:43 14:43 14:43 WBC 5.10 Hgb 7.4 L Hct 21.1 L Plt Count 177 PT 10.6 INR 0.96 APTT 30.4 Sodium 137 Potassium 3.4 L BUN 21 H Creatinine 2.65 H Glucose 180 H Assessment and Plan - Problems (Diagnosis) (1) Acute blood loss anemia Current Visit: Yes Status: Acute (2) History of GI bleed Current Visit: Yes Status: Acute (3) History of arteriovenous malformation (AVM) Current Visit: Yes Status: Acute (4) ESRD (end stage renal disease) on dialysis Current Visit: No Status: Chronic (5) Essential hypertension Current Visit: Yes Status: Acute (6) Type 2 diabetes mellitus Current Visit: No Status: Chronic Qualifiers: Diabetes mellitus tie puller insulin use: without tie puller use Diabetes mellitus complication status: with hyperglycemia Qualified Code(s): E11.65 - Type 2 diabetes mellitus with hyperglycemia - Plan Place patient under observation. Case discussed with patient's commercial account officer Dr. Fields. Transfuse 1 unit PRBC tonight. Recheck hemoglobin in a.m. Hold antiplatelets. Insulin sliding scale for glucose management. Continue home medications for hypertension. - Advance Directives Does patient have a Living Will: No Does patient have a Durable POA for Healthcare: Yes
[2023-04-03 20:23] VITALS: BMI 25.7
[2023-04-03 20:42] LABS: RBC Red Blood Cell Count 2.74 M/uL (3.86-4.86)
[2023-04-03 20:50] VITALS: O2SAT 96
[2023-04-03] MEDS: INSULIN -REGULAR HUMAN 50 UNIT/0.5 ML ML SQ SCH (20:51)
[2023-04-03 21:52] LABS: Hematocrit 23.3 % (36.0-45.0)
[2023-04-04 04:13] LABS: Absolute Lymphocytes (CBC) 0.9 K/uL (0.7-4.9); Hematocrit 22.9 % (36.0-45.0); Lymphocytes % 17.7 % (15.3-44.8); MCV 95.2 fL (80-100); MPV 8.2 fL (7.6-11.3); Platelets 150 thou/uL (152-406)
[2023-04-04 04:23] LABS: Albumin 3.1 g/dL (3.4-5.0); Bilirubin Total 0.4 mg/dL (0.2-1.0); Magnesium 1.8 mg/dL (1.6-2.4); Phosphorus 3.3 mg/dL (2.5-4.9); Potassium 3.6 mEq/L (3.5-5.1); Protein, Total 6.5 g/dL (6.4-8.2)
[2023-04-04] MEDS: INSULIN -REGULAR HUMAN 50 UNIT/0.5 ML ML SQ SCH ×2 (07:30→11:30)
[2023-04-04] MEDS ORDERED: INFLUENZA VACCINE (for 6+ mo) 0.5 ML DOSE IMVAC ONE (09:00)
--- NOTE | 2023-04-04 13:00 | P.DS ---
Admission Date: 04/03/23 Discharge Date: 04/04/23 Disposition: ROUTINE DISCHARGE Discharge Condition: FAIR - Problems (1) Acute blood loss anemia Current Visit: Yes Status: Acute (2) History of GI bleed Current Visit: Yes Status: Acute (3) History of arteriovenous malformation (AVM) Current Visit: Yes Status: Acute (4) ESRD (end stage renal disease) on dialysis Current Visit: No Status: Chronic (5) Essential hypertension Current Visit: Yes Status: Acute (6) Type 2 diabetes mellitus Current Visit: No Status: Chronic Qualifiers: Diabetes mellitus long-term insulin use: without long-term use Diabetes mellitus complication status: with hyperglycemia Qualified Code(s): E11.65 - Type 2 diabetes mellitus with hyperglycemia Brief History of Present Illness: 72-year-old male with a history of end-stage renal disease on hemodialysis, 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 Fields because of progressive drop in hemoglobin. Patient was referred from the hemodialysis center to the emergency department. She completed her hemodialysis today. Patient denies any complaint. She denies any shortness of breath, or fatigue or chest pain or palpitation. Hemoglobin check in the ED is 7.4. It was 8.3 only 2 days ago. Patient was hospitalized for further management. Hospital Course: Patient placed on observation on the medical floor and transfused 1 unit PRBC. Hemoglobin up to 8. Patient is asymptomatic. No active GI bleed. Patient is discharged to follow-up with her integrated specialist and GI as outpatient. Vital Signs/Physical Exam: Temp Pulse Resp BP Pulse Ox 97.9 F 80 18 142/65 H 93 04/04/23 08:00 04/04/23 08:00 04/04/23 08:00 04/04/23 08:00 04/04/23 08:00 Laboratory Data at Discharge: WBC 5.00 thou/uL (4.3-10.9) 04/04/23 03:22 Hgb 8.1 g/dL (12.0-15.0) L 04/04/23 03:22 Hct 22.9 % (36.0-45.0) L 04/04/23 03:22 Plt Count 150 thou/uL (152-406) L 04/04/23 03:22 PT 10.6 SECONDS (9.5-12.5) 04/03/23 14:43 INR 0.96 04/03/23 14:43 APTT 30.4 SECONDS (24.3-36.9) 04/03/23 14:43 Sodium 138 mEq/L (136-145) 04/04/23 03:22 Potassium 3.6 mEq/L (3.5-5.1) 04/04/23 03:22 BUN 33 mg/dL (7-18) H 04/04/23 03:22 Creatinine 4.07 mg/dL (0.55-1.02) H 04/04/23 03:22 Glucose 142 mg/dL (74-106) H 04/04/23 03:22 Phosphorus 3.3 mg/dL (2.5-4.9) 04/04/23 03:22 Magnesium 1.8 mg/dL (1.6-2.4) 04/04/23 03:22 Total Bilirubin 0.4 mg/dL (0.2-1.0) 04/04/23 03:22 AST 12 U/L (15-37) L 04/04/23 03:22 ALT 18 U/L (13-56) 04/04/23 03:22 Alkaline Phosphatase 97 U/L (45-117) 04/04/23 03:22 Home Medications: Atorvastatin Calcium 20 mg PO BEDTIME 07/31/20 Carvedilol [Coreg] 25 mg PO BIDWM 07/31/20 Cholecalciferol (Vitamin D3) [Vitamin D3] 5,000 unit PO DAILY 07/31/20 Glimepiride 4 mg PO DAILY 07/31/20 Ketorolac Opth [Acular 0.5% Opth Drops*] 1 drop OPTH BID 07/31/20 Amlodipine Besylate 5 mg PO BID 03/18/22 Hydralazine [Apresoline*] 25 mg PO BID 03/18/22 Hydrocodone Bit/Acetaminophen [Hydrocodon-Acetaminophen 5-325] 1 tab PO PRN PRN MDD 2 03/18/22 Isosorbide Mononitrate [Isosorbide Mononitrate ER] 30 mg PO DAILY 03/18/22 Ascorbic Acid [C-1000] 1,000 mg PO DAILY 09/11/22 Aspirin [Aspirin EC 81 MG] 81 mg PO SEECOM 09/11/22 Brimonidine Tartrate [Alphagan P] 1 gtt OP BID 09/11/22 Ferric Citrate [Auryxia] 3 tab PO TIDWM 09/11/22 Folic Acid/Vit B Complex and C [Dialyvite 800 Chewable Wafer] 800 mg PO DAILY 09/11/22 Montelukast [Singulair*] 10 mg PO DAILY 09/11/22 Promethazine Tab [Phenergan*] 25 mg PO Q6HP PRN 09/11/22 Famotidine [Pepcid*] 20 mg PO DAILY 10/31/22 Pantoprazole [Protonix Tab*] 40 mg PO DAILY 10/31/22 Methoxy Peg-Epoetin Beta [Mircera] 50 mcg IJ SEECOM 11/01/22 Raw Probiotics 1 cap PO DAILY 11/01/22 Diet: ADA Activity: Ad claudia Followup: Willie Kee DO [Primary Care Provider] -
[2023-04-04 14:57] VITALS: BP 132/42; TEMP 98.1
--- NOTE | 2023-04-06 12:23 | EKG ---
Test Date: 2023-04-03 Test Time: 14:38:21 Warehouse Director: MB MEASUREMENT RESULTS: Intervals: Rate: 78 NJ: 152 QRSD: 102 QT: 370 QTc: 421 [place]: P: NJ: 152 QRS: 92 T: 240 INTERPRETIVE STATEMENTS: Normal sinus rhythm ST & T wave abnormality, consider inferior ischemia Abnormal ECG Compared to ECG 03/30/2023 12:18:36 ST (T wave) deviation now present Possible ischemia now present Electronically Signed On 04-06-23 12:18:10 CDT by Wesley Weaver
== END 2023-04-04 16:25 | disposition home or self-care (01) ==
LOC: ER 14:12 → ERHOLD 16:54 → 2ND 18:24
PROVIDERS: ADMIT Internal Medicine; ATTEND Internal Medicine
DX: D50.0 Iron deficiency anemia secondary to blood loss (chronic) (principal); K92.2 Gastrointestinal hemorrhage, unspecified; E11.65 Type 2 diabetes mellitus with hyperglycemia; I10 Essential (primary) hypertension; N18.6 End stage renal disease; Q27.30 Arteriovenous malformation, site unspecified; Z99.2 Dependence on renal dialysis; Z88.5 Allergy status to narcotic agent; Z88.0 Allergy status to penicillin; Z88.8 Allergy status to other drugs, medicaments and biological substances; Z80.9 Family history of malignant neoplasm, unspecified; Z82.49 Family history of ischemic heart disease and other diseases of the circulatory system; Z82.3 Family history of stroke
CPT/HCPCS: 85025 ×2; 80048; 36415; 86900; 83735; 86850; 83615; 84100; 85610; 85044; 86901; 82947 ×4; 85730; 86920; 85018; 85014; 82607; 83540; 83010; 80053; 82784; 84466; 84165; 71045; 99285; 86364; P9016; J7050; 93005; G0378

== ENCOUNTER 2023-07-20 08:57 | Observation (INO) | payer OTHER ==
[2023-07-20 09:30] LABS: Absolute Lymphocytes (CBC) 0.5 K/uL (0.7-4.9); Hematocrit 18.5 % (36.0-45.0); Lymphocytes % 7.7 % (15.3-44.8); MCV 102.6 fL (80-100); MPV 8.2 fL (7.6-11.3); Platelets 145 thou/uL (152-406)
[2023-07-20 09:56] LABS: Albumin 3.5 g/dL (3.4-5.0); Bilirubin Total 0.6 mg/dL (0.2-1.0); Magnesium 1.9 mg/dL (1.6-2.4); Phosphorus 5.2 mg/dL (2.5-4.9); Potassium 5.1 mEq/L (3.5-5.1); Protein, Total 7.2 g/dL (6.4-8.2)
--- NOTE | 2023-07-20 09:56 | EDPHYS ---
Physician Documentation [facility] Name: Tracy Butt Age: 73 yrs Sex: Female : 1950 Arrival Date: 07/20/2023 Time: 08:57 Bed 17 Private MD: ED Physician Arturo Almaraz HPI: 07/20 09:42 This 73 yrs old Female presents to ER via Wheelchair with complaints of Abnormal Lab rt Results. 09:42 Patient with end-stage renal disease on Thursday dialysis presents to rt the ED with anemia. Hemoglobin reported 6 on Thursday. Patient was sent to the ED for further care. She does report a fatigue, dizziness, shortness of breath. This is similar symptoms when she has had anemia in the past. Denies other acute complaints, symptoms are moderate in severity, no other aggravating elevating factors.. Historical: - Allergies: 09:06 CHLORAMPHENICOL; iw 09:06 Latex; iw 09:06 PENICILLINS; iw 09:06 Zofran or Morphine; iw - PMHx: 09:06 Diabetes - NIDDM; kidney disease; Anemia; MWF Dialysis; Hypertension; iw - PSHx: 09:06 LUE dialysis access; iw - Immunization history:: Adult Immunizations up to date. - Family history:: not pertinent. - Social history:: Smoking status: Patient denies any tobacco usage or history of. ROS: 09:42 Cardiovascular: Negative for chest pain, palpitations, and edema, Abdomen/GI: Negative rt for abdominal pain, nausea, vomiting, diarrhea, and constipation, MS/Extremity: Negative for injury and deformity, Skin: Negative for injury, rash, and discoloration, Psych: Negative for depression, anxiety, suicide ideation, homicidal ideation, and hallucinations, 09:42 Constitutional: Positive for fatigue, Negative for fever, 09:42 Respiratory: Positive for shortness of breath, Negative for cough, 09:42 Neuro: Positive for dizziness, Negative for altered mental status, Exam: 09:42 Constitutional: This is a well developed, well nourished patient who is awake, alert, rt and in no acute distress. Head/Face: Normocephalic, atraumatic. Chest/axilla: Normal chest wall appearance and motion. Nontender with no deformity. No lesions are appreciated. Cardiovascular: Regular rate and rhythm with a normal S1 and S2. No gallops, murmurs, or rubs. Normal PMI, no JVD. No pulse deficits. Respiratory: Lungs have equal breath sounds bilaterally, clear to auscultation and percussion. No rales, rhonchi or wheezes noted. No increased work of breathing, no retractions or nasal flaring. Abdomen/GI: Soft, non-tender, with normal bowel sounds. No distension or tympany. No guarding or rebound. No evidence of tenderness throughout. Skin: Warm, dry with normal turgor. Normal color with no rashes, no lesions, and no evidence of cellulitis. MS/ Extremity: Pulses equal, no cyanosis. Neurovascular intact. Full, normal range of motion. Neuro: Awake and alert, GCS 15, oriented to person, place, time, and situation. Cranial nerves II-XII grossly intact. Motor strength 5/5 in all extremities. Sensory grossly intact. Cerebellar exam normal. Normal gait. Psych: Awake, alert, with orientation to person, place and time. Behavior, mood, and affect are within normal limits. 11:22 ECG was reviewed by the Attending Physician. rt Vital Signs: 09:05 BP 111 / 49; Pulse 73; Resp 16; Temp 97.8; Pulse Ox 99% on R/A; iw 10:05 BP 121 / 51; Pulse 75; Resp 17; Temp 97.8(O); Pulse Ox 99% on R/A; rs5 10:28 BP 122 / 47; Pulse 74; Resp 18; Pulse Ox 99% on R/A; rs5 MDM: 09:08 Patient medically screened. rt 09:51 Differential Diagnosis Symptomatic anemia, ESRD. Data reviewed: vital signs, nurses rt notes, lab test result(s). Consideration of Admission/Observation Patient was admitted/placed on observation. Management of patient was discussed with the following:. 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 Care significantly affected by the following chronic conditions: Chronic Kidney Disease. Counseling: I had a detailed discussion with the patient and/or guardian regarding the historical points, exam findings, and any diagnostic results supporting the discharge/admit diagnosis, lab results, the need for further work-up and treatment in the hospital. 01/22 09:09 Order name: CBC with Diff rt 07/20 09:09 Order name: CMP; Complete Time: 10:51 rt 07/20 09:09 Order name: Type And Screen rt 07/20 09:09 Order name: Magnesium; Complete Time: 10:51 rt 07/20 09:09 Order name: Phosphorus; Complete Time: 10:51 rt 07/20 09:52 Order name: Bb Add On bd 07/20 09:58 Order name: Packed RBC Leukored EDMS 07/20 10:01 Order name: Packed RBC Leukored EDMS 07/20 10:01 Order name: Hematocrit EDMS 07/20 10:01 Order name: Hemoglobin EDMS 07/20 10:02 Order name: ABO/RH typing EDMS 07/20 10:02 Order name: Antibody Screen EDMS 07/20 12:44 Order name: CBC Smear Scan EDMS 07/20 13:32 Order name: Chest Single View XRAY rs5 07/20 14:08 Order name: RAD EDNM 07/20 09:59 Order name: CONS Physician Consult EDNM EC: Rate is 75 beats/min. Rhythm is regular, Normal Sinus Rhythm with No ectopy. QRS Umbarger rt is Normal. NM interval is normal. QRS interval is normal. QT interval is normal. No Q waves. Clinical impression: NSR w/ Non-specific ST/T Changes. Administered Medications: No medications were administered Disposition Summary: 07/20/23 09:55 Hospitalization Ordered Notes: Hospitalization Status: Observation rt Provider: Matias Tong rt Condition: Stable rt Problem: an acute exacerbation rt Symptoms: are unchanged rt Bed/Room Type: Standard rt Location: Telemetry/MedSurg (observation)(07/20/23 14:09) bd Room Assignment: 229(07/20/23 14:09) bd Diagnosis - Symptomatic anemia rt Forms: - Medication Reconciliation Form rt - SBAR form rt - Leadership Thank You Letter rt Critical care time excluding procedures: 09:55 Critical care time: Bedside Care: 30 minutes, Consultation: 5 minutes. Total time: 35 rt minutes Signatures: Dispatcher [employer] EDNM Lindsey Celis Gillian Lagos RN RN iw Bárbara Burnett RN RN kb3 Arturo Alamraz MD MD rt Rubén Moseley RN RN rs5 Corrections: (The following items were deleted from the chart) 09:55 Telemetry/MedSurg (observation) rt kb3 12:46 09:55 rt kb3 14: 12:46 [facility] ER HOLD kb3 bd 14: 12:46 ERHOLD- kb3 bd
--- NOTE | 2023-07-20 09:56 | ER ---
Nurse's Notes [facility] Name: Tracy Butt Age: 73 yrs Sex: Female : 1950 Arrival Date: 07/20/2023 Time: 08:57 Bed 17 Private MD: Diagnosis: Symptomatic anemia Presentation: 07/20 09:05 Chief complaint: Patient's son or daughter states: had labs done on Thursday and they iw called with results and they said her Hgb was 6.0. Coronavirus screen: At this time, the client does not indicate any symptoms associated with coronavirus-19. Ebola Screen: Patient negative for fever greater than or equal to 101.5 degrees Fahrenheit, and additional compatible Ebola Virus Disease symptoms Patient denies exposure to infectious person. Patient denies travel to an Ebola-affected area in the 21 days before illness onset. No symptoms or risks identified at this time. Initial Sepsis Screen: Does the patient meet any 2 criteria? No. Patient's initial sepsis screen is negative. Does the patient have a suspected source of infection? No. Patient's initial sepsis screen is negative. Risk Assessment: Do you want to hurt yourself or someone else? Patient reports no desire to harm self or others. Onset of symptoms was July 20, 2023. 09:05 Method Of Arrival: Wheelchair iw 09:05 Acuity: ANTHONY 3 iw Historical: - Allergies: 09:06 CHLORAMPHENICOL; iw 09:06 Latex; iw 09:06 PENICILLINS; iw 09:06 Zofran or Morphine; iw - PMHx: 09:06 Diabetes - NIDDM; kidney disease; Anemia; MWF Dialysis; Hypertension; iw - PSHx: 09:06 LUE dialysis access; iw - Immunization history:: Adult Immunizations up to date. - Family history:: not pertinent. - Social history:: Smoking status: Patient denies any tobacco usage or history of. Screenin:10 [facility] ED Fall Risk Assessment (Adult) History of falling in the last 3 months, rs5 including since admission No falls in past 3 months (0 pts) Confusion or Disorientation No (0 pts) Intoxicated or Sedated No (0 pts) Impaired Gait No (0 pts) Mobility Assist Device Used Yes (1 pt) Altered Elimination No (0 pt) Score/Fall Risk Level 0 - 2 = Low Risk Oriented to surroundings, Maintained a safe environment. Abuse screen: Denies threats or abuse. Nutritional screening: No deficits noted. Tuberculosis screening: No symptoms or risk factors identified. Assessment: 10:00 Reassessment: Pt arrived in room. rs5 10:10 General: Appears in no apparent distress. comfortable, Behavior is calm, cooperative. rs5 Pain: Denies pain. Neuro: Level of Consciousness is awake, alert, obeys commands, Oriented to person, place, time, situation. Neuro: Reports dizziness, weakness since 07/16/23. Cardiovascular: Heart tones S1 S2 present Patient's skin is warm and dry. Rhythm is regular. Respiratory: Airway is patent Respiratory effort is even, unlabored, Respiratory pattern is regular, symmetrical, Breath sounds are clear bilaterally. GI: Bowel sounds present X 4 quads. Abd is soft and non tender X 4 quads. : No signs and/or symptoms were reported regarding the genitourinary system. EENT: No signs and/or symptoms were reported regarding the EENT system. Derm: Skin is intact, Skin is pink, warm \T\ dry. Fistula noted to HELLEN, bruit auscultated and thrill palpated. Musculoskeletal: Range of motion: intact in all extremities, Reports weakness since 07/16/22. 10:24 Reassessment: To bedside, blood transfusion consent form signed by pt and provider. rs5 11:00 Reassessment: Patient and/or family updated on plan of care and expected duration. Pain rs5 level reassessed. Patient is alert, oriented x 3, equal unlabored respirations, skin warm/dry/pink. 12:51 Reassessment: Patient and/or family updated on plan of care and expected duration. Pain ap3 level reassessed. Patient is alert, oriented x 3, equal unlabored respirations, skin warm/dry/pink. patient placed on 2liters oxygen via nasal canula for SpO2 of 89%. Respiratory: Airway is patent Respiratory effort is even, unlabored, Respiratory pattern is regular, symmetrical. Vital Signs: 09:05 BP 111 / 49; Pulse 73; Resp 16; Temp 97.8; Pulse Ox 99% on R/A; iw 10:05 BP 121 / 51; Pulse 75; Resp 17; Temp 97.8(O); Pulse Ox 99% on R/A; rs5 10:28 BP 122 / 47; Pulse 74; Resp 18; Pulse Ox 99% on R/A; rs5 ED Course: 08:59 Patient arrived in ED. rg4 08:59 Arturo Almaraz MD is Attending Physician. rt 09:06 Triage completed. iw 09:06 Arm band placed on. iw 09:19 Inserted saline lock: 20 gauge in right antecubital area, using aseptic technique. iw Blood collected. 09:55 Matias Tong MD is Hospitalizing Provider. rt 10:10 Rubén Moseley, RN is Primary Nurse. rs5 10:10 Patient has correct armband on for positive identification. Bed in low position. Call rs5 light in reach. Side rails up X2. 10:10 No provider procedures requiring assistance completed. rs5 11:01 Patient admitted, IV remains in place. rs5 Administered Medications: No medications were administered Medication: 10:10 VIS not applicable for this client. rs5 Outcome: 09:55 Decision to Hospitalize by Provider. rt 11:01 Admitted to ER Hold. Please see [facility] for further documentation. rs5 11:01 Condition: stable 11:01 Instructed on the need for admit, Demonstrated understanding of instructions, 15:33 Patient left the ED. ds4 Signatures: Gillian Lagos, RN RN iw Nathan Medina ds4 Ana Claros rg4 Lizbeth Rios RN RN ap3 Arturo Almaraz MD MD rt Rubén Moseley, PARVIN RN rs5 Corrections: (The following items were deleted from the chart) 10:29 10:10 Derm: Skin is intact, Skin is pink, warm \T\ dry. rs5 rs5
[2023-07-20] MEDS ORDERED: NA CHLORIDE 0.9% 250 ML IV SCH ×2 (10:00→17:00)
[2023-07-20] MEDS ORDERED: ACETAMINOPHEN 500 MG TAB PO ONE (10:15)
[2023-07-20] MEDS ORDERED: DIPHENHYDRAMINE 50 MG/ML VIAL IV ONE (10:15)
--- NOTE | 2023-07-20 10:18 | P.HP ---
Certification for Inpatient Patient admitted to: Observation With expected LOS: <2 Midnights Patient will require the following post-hospital care: None Practitioner: I am a practitioner with admitting privileges, knowledge of patient current condition, hospital course, and medical plan of care. Services: Services provided to patient in accordance with Admission requirements found in Title 42 Section 412.3 of the Code of Federal Regulations <Andie Frank - Last Filed: 07/20/23 10:26> Patient History Date of Service: 07/20/23 Reason for admission: Symptomatic anemia History of Present Illness: 36-cycx-lus-year-old female with past medical history of end-stage renal disease on hemodialysis Thursday presents to the emergency room with symptomatic anemia. She was reported that she had laboratory of hemoglobin on Thursday. Reports associated fatigue, dizziness shortness of breath. Reports history of anemia in the past. Denies rectal bleeding, no reported chest pain. Plan to admit for symptomatic anemia, end-stage renal disease on hemodialysis, with nephrology to consult. - Past Medical/Surgical History Diabetic: Yes -: ESRD [facility] (Dr. Kee) -: NIDDM -: Hypertension -: Anemia chronic disease -: CHRONIC BACK PAIN -: GLUACOMA -: RETINIOPATHY -: SUPERFICIAL BASIL CELL CARCINOMA -: Asthma -: Hysterectomy -: Left total knee -: back surgery -: CATARACT HAMMAD EYES -: LUE HD placed -: 09/09/22 Cervical Myelopathy Psychosocial/ Personal History: Patient lives with her daughter and is retired - Family History Mother -: Heart disease, Diabetes, Stroke Father -: Cancer Sister -: Cancer - Social History Alcohol use: No CD- Drugs: No Caffeine use: Yes <Andie Frank - Last Filed: 07/20/23 10:26> Date of Service: 07/20/23 <Matias Tong - Last Filed: 07/20/23 15:41> Allergies chloramphenicol Allergy (Verified 09/13/20 12:02) Anaphylaxis latex Allergy (Verified 04/03/23 20:26) Itching/Hives/Rash morphine Allergy (Verified 09/13/20 12:02) Itching/Hives/Rash ondansetron [From Zofran] Allergy (Verified 09/13/20 12:02) Itching/Hives/Rash Penicillins Allergy (Verified 09/13/20 12:02) Anaphylaxis Home Medications: Atorvastatin Calcium 20 mg PO BEDTIME 07/31/20 Carvedilol [Coreg] 25 mg PO BIDWM 07/31/20 Cholecalciferol (Vitamin D3) [Vitamin D3] 5,000 unit PO DAILY 07/31/20 Glimepiride 4 mg PO DAILY 07/31/20 Ketorolac Opth [Acular 0.5% Opth Drops*] 1 drop OPTH BID 07/31/20 Amlodipine Besylate 5 mg PO BID 03/18/22 Hydralazine [Apresoline*] 25 mg PO BID 03/18/22 Hydrocodone Bit/Acetaminophen [Hydrocodon-Acetaminophen 5-325] 1 tab PO PRN PRN MDD 2 03/18/22 Isosorbide Mononitrate [Isosorbide Mononitrate ER] 30 mg PO DAILY 03/18/22 Ascorbic Acid [C-1000] 1,000 mg PO DAILY 09/11/22 Aspirin [Aspirin EC 81 MG] 81 mg PO SEECOM 09/11/22 Brimonidine Tartrate [Alphagan P] 1 gtt OP BID 09/11/22 Ferric Citrate [Auryxia] 3 tab PO TIDWM 09/11/22 Folic Acid/Vit B Complex and C [Dialyvite 800 Chewable Wafer] 800 mg PO DAILY 09/11/22 Montelukast [Singulair*] 10 mg PO DAILY 09/11/22 Promethazine Tab [Phenergan*] 25 mg PO Q6HP PRN 09/11/22 Famotidine [Pepcid*] 20 mg PO DAILY 10/31/22 Pantoprazole [Protonix Tab*] 40 mg PO DAILY 10/31/22 Methoxy Peg-Epoetin Beta [Mircera] 50 mcg IJ SEECOM 11/01/22 Raw Probiotics 1 cap PO DAILY 11/01/22 Review of Systems per HPI <Andie Frank - Last Filed: 07/20/23 10:26> Physical Examination - Physical Exam General: Alert, In no apparent distress, Oriented x3 HEENT: Atraumatic, Normocephalic Neck: Supple, 2+ carotid pulse no bruit Respiratory: Clear to auscultation bilaterally, Normal air movement Cardiovascular: Normal pulses, Regular rate/rhythm Capillary refill: <2 Seconds Gastrointestinal: Normal bowel sounds, Soft and benign Musculoskeletal: No clubbing, No swelling Integumentary: No rashes, No breakdown Neurological: Normal speech, Normal strength at 5/5 x4 extr - Studies Laboratory Data (last 24 hrs) 07/20/23 07/20/23 09:13 09:13 WBC 6.90 Hgb 6.3 L Hct 18.5 L Plt Count 145 L Sodium 137 Potassium 5.1 BUN 101 H Creatinine 9.46 H Glucose 181 H Phosphorus 5.2 H Magnesium 1.9 Total Bilirubin 0.6 AST 28 ALT 37 Alkaline Phosphatase 150 H <Andie Frank - Last Filed: 07/20/23 10:26> - Studies Laboratory Data (last 24 hrs) 07/20/23 07/20/23 09:13 09:13 WBC 6.90 Hgb 6.3 L Hct 18.5 L Plt Count 145 L Sodium 137 Potassium 5.1 BUN 101 H Creatinine 9.46 H Glucose 181 H Phosphorus 5.2 H Magnesium 1.9 Total Bilirubin 0.6 AST 28 ALT 37 Alkaline Phosphatase 150 H <Matias Tong - Last Filed: 07/20/23 15:41> Assessment and Plan - Plan Assessment plan Symptomatic anemia End-stage renal disease on hemodialysis Nephrology consult, type and cross 2 units, Fall precautions Essential hypertension and uncontrolled Resume appropriate home medications Diabetes type 2 unknown control Accu-Cheks, sliding scale insulin Full code DVT heparin Diet renal Discharge Plan: Home Plan to discharge in: 24 Hours - Advance Directives Does patient have a Living Will: No Does patient have a Durable POA for Healthcare: Yes - Code Status/Comfort Care Code Status: Full Code Critical Care: No Time Spent Managing Pts Care (In Minutes): 55 <Andie Frank - Last Filed: 07/20/23 10:26> - Plan Pt seen and examined. I agree with the note by the RETAIL BRANCH MANAGER. Pt is a 69yo female with past medical of ESRD on HD MWF who presents with symptomatic anemia. Pt reports that her dialysis center called her this morning and advised her to go to the ER due to low hemoglobin. They did blood work on thursday and the CBC showed hemoglobin of 6. On admission, pt was in NAD. Lab studies show WBC 6.1, Hgb 6.3 , K 5.1, Cr 9.46. She denies any chest pain, nausea, vomiting, fever or chills, but reports SOB. ER physician started blood transfusion but pt later became SOB. We held blood transfusion and did CXR which showed pulm edema. Pt does not make urine. She will need dialysis. A/P: Anemia of chronic disease: Hgb is 6.3. Pt became SOB while getting the first unit. Will hold the blood transfusion. Will monitor H/H. Pt will get the blood during dialysis ESRD: Continue HD MWF. Cr is 9.46. Consulted Nephrology Pulm Edema: Per CXR. Due to blood transfusion. Will give lasix. Pt will need dialysis Htn: Continue home med DM II: Continue accuchek, SSI and ADA diet Hyperkalemia: K is 5.1. Due to ESRD. Will improve with dialysis. DVT pp: SCD Code: full <Matias Tong - Last Filed: 07/20/23 15:41>
[2023-07-20] MEDS ORDERED: MANNITOL 25% 12.5 GM/50 ML VIAL IV PRN (10:29)
[2023-07-20] MEDS ORDERED: NA CHLORIDE 0.9% 1,000 ML IV PRN (10:29)
[2023-07-20] MEDS ORDERED: EPOETIN ALFA 10,000 UNIT/ML VIAL IV SCH (10:30)
[2023-07-20] MEDS ORDERED: ALBUMIN HUMAN 25% 50 ML IV SCH (11:00)
[2023-07-20] MEDS ORDERED: NA CHLORIDE 0.9% 250 ML ONE (12:14)
[2023-07-20 12:44] LABS: Anisocytosis 1+; Blood Morphology Comment NOTED (NOT SEEN); Hypochromasia 1+; Macrocytosis 1+; Platelet Estimate DECR; Polychromasia 1+; White Blood Cell Scan OK (OK)
--- NOTE | 2023-07-20 14:08 | RAD REPORT ---
[facility]00 [facility] CLINICAL HISTORY: Per uwekee order COMPARISON: 04/03/2023 and 03/30/2023 radiographs TECHNIQUE: Portable AP view of the chest. FINDINGS: Progressive central interstitial prominence and fluffy bibasilar opacities more so on the right. No pneumothorax or effusion. The cardiomediastinal contours are unremarkable. IMPRESSION: Findings suggesting pulmonary edema as above. Superimposed pneumonia cannot be entirely excluded.
[2023-07-20] MEDS ORDERED: ACETAMINOPHEN 500 MG TAB PO PRN (14:09)
[2023-07-20] MEDS ORDERED: ALPRAZOLAM 0.25 MG TABLET PO PRN (14:09)
[2023-07-20] MEDS ORDERED: GLUCAGON 1 MG/VIAL IM PRN (14:09)
[2023-07-20] MEDS: INSULIN REGULAR (HUMAN) 100 UNIT/ML SQ SCH ×3 (14:09→21:00)
[2023-07-20] MEDS ORDERED: ONDANSETRON 4 MG/2 ML VIAL IV PRN (14:09)
[2023-07-20] MEDS ORDERED: D50W 25 GM/50 ML SYRINGE IV PRN (14:09)
[2023-07-20] MEDS ORDERED: PROMETHAZINE 25 MG TABLET PO PRN ×2 (14:17→19:05)
[2023-07-20 14:26] VITALS: BMI 26.6
[2023-07-20] MEDS ORDERED: D10W 125 ML IV PRN (14:30)
[2023-07-20] MEDS ORDERED: FUROSEMIDE 40 MG/4 ML VIAL IV ONE ×2 (15:09→16:05)
[2023-07-20] MEDS ORDERED: FUROSEMIDE 40 MG/4 ML VIAL ONE (15:12)
[2023-07-20 15:16] LABS: Hematocrit 19.4 % (36.0-45.0)
[2023-07-20] MEDS: HYDRALAZINE HCL 25 MG TABLET PO SCH ×2 (16:45→23:51)
[2023-07-20] MEDS: carvediloL 25 MG TAB PO SCH (17:00)
[2023-07-20] MEDS: ASCORBIC ACID 500 MG TABLET PO SCH (21:00)
[2023-07-20] MEDS: ATORVASTATIN 20 MG TAB PO SCH ×2 (21:00→23:51)
[2023-07-20 22:01] LABS: Hepatitis B Surface Ab - Quant 40.33 mIU/mL (<8.0); Hepatitis B surface AG Interp. Nonreactive (Nonreactive)
--- NOTE | 2023-07-20 22:21 | P.CNS ---
Date of Consult: 07/20/23 Reason for Consult: ESRD Requesting Physician: Matias Tong Chief Complaint: Symptomatic anemia History of Present Illness: [id number]-year-old female with past medical history of end-stage renal disease on hemodialysis Thursday presents to the emergency room with symptomatic anemia. She was reported that she had laboratory of hemoglobin on 6 home Thursday. Reports associated fatigue, dizziness shortness of breath. Reports history of anemia in the past. Denies rectal bleeding, no reported chest pain. Plan to admit for symptomatic anemia, end-stage renal disease on hemodialysis, with nephrology to consult. [email or web address] 09:42 This 73 yrs old Female presents to ER via Wheelchair with complaints of Abnormal Lab rt Results. 09:42 Patient with end-stage renal disease on Thursday dialysis presents to rt the ED with anemia. Hemoglobin reported 6 on Thursday. Patient was sent to the ED for further care. She does report a fatigue, dizziness, shortness of breath. This is similar symptoms when she has had anemia in the past. Denies other acute complaints, symptoms are moderate in severity, no other aggravating elevating factors.. Allergies chloramphenicol Allergy (Verified 09/13/20 12:02) Anaphylaxis latex Allergy (Verified 04/03/23 20:26) Itching/Hives/Rash morphine Allergy (Verified 09/13/20 12:02) Itching/Hives/Rash ondansetron [From Zofran] Allergy (Verified 09/13/20 12:02) Itching/Hives/Rash Penicillins Allergy (Verified 09/13/20 12:02) Anaphylaxis Home medications list reviewed: Yes Home Medications: Hydralazine [Apresoline*] 25 mg PO BID 03/18/22 Isosorbide Mononitrate [Isosorbide Mononitrate ER] 30 mg PO DAILY 03/18/22 Ferric Citrate [Auryxia] 3 tab PO TIDWM 09/11/22 Folic Acid/Vit B Complex and C [Dialyvite 800 Chewable Wafer] 800 mg PO DAILY 09/11/22 Methoxy Peg-Epoetin Beta [Mircera] 50 mcg IJ SEECOM 11/01/22 Raw Probiotics 1 cap PO DAILY 11/01/22 Amlodipine Besylate 5 mg PO BID 07/20/23 Ascorbic Acid [Vitamin C*] 2 tab PO BEDTIME 07/20/23 Aspirin [Gladys Chewable Aspirin] 1 tab PO SEECOM 07/20/23 Atorvastatin Calcium 1 tab PO BEDTIME 07/20/23 Brimonidine Tartrate [Alphagan P] 1 drops OPTH BID 07/20/23 Carvedilol [Coreg] 1 tab PO BID 07/20/23 Docusate Sodium [Stool Softener] 1 tab PO BEDTIME 07/20/23 Famotidine [Pepcid*] 1 tab PO BEDTIME 07/20/23 Glimepiride 1 tab PO BID 07/20/23 Hydrocodone Bit/Acetaminophen [Hydrocodon-Acetaminophn 10-325] 1 tab PO TID PRN 07/20/23 Ketorolac Opth [Acular 0.5% Opth Drops*] 1 drop OP BID 07/20/23 Montelukast Sodium [Singulair] 1 tab PO DAILY 07/20/23 Pantoprazole Sodium 1 tab PO DAILY 07/20/23 Promethazine HCl 1 tab PO Q6HR PRN 07/20/23 Vit B Comp C/Folic Acid/Vit D3 [Dialyvite 800 Plus D Wafer] 1 tab PO BEDTIME 07/20/23 Insulin Glargine,Hum.rec.anlog [Basaglar Kwikpen U-100] 0 units SQ SEECOM 07/21/23 - Past Medical/Surgical History Diabetic: Yes -: ESRD (Dr. Kee/ Dr. Fields) -: NIDDM -: Hypertension -: Anemia chronic disease -: CHRONIC BACK PAIN -: GLUACOMA -: RETINIOPATHY -: SUPERFICIAL BASIL CELL CARCINOMA -: Asthma -: Hysterectomy -: Left total knee -: back surgery -: CATARACT HAMMAD EYES -: LUE HD placed -: 09/09/22 Cervical Myelopathy Psychosocial/ Personal History: Patient lives with her daughter and is retired - Family History Mother Medical History: Heart disease, Diabetes, Stroke Father Medical History: Cancer Sister Medical History: Cancer - Social History Alcohol use: No CD- Drugs: No Caffeine use: Yes Review of Systems 10-point ROS is otherwise unremarkable Respiratory: SOB with Excertion Neurological: Weakness Physical Examination Temp Pulse Resp BP Pulse Ox 98.1 F 77 17 142/115 H 92 07/20/23 16:55 07/20/23 16:55 07/20/23 16:55 07/20/23 16:55 07/20/23 16:55 General: Oriented x3, Cooperative, Mild distress HEENT: Atraumatic Neck: Supple Respiratory: Diminished Cardiovascular: Regular rate/rhythm, Edema Gastrointestinal: Soft and benign, Non-distended Musculoskeletal: No clubbing, No contractures Integumentary: No rashes, No cyanosis Neurological: Normal speech Laboratory Data (last 24 hrs) 07/20/23 07/20/23 09:13 09:13 WBC 6.90 Hgb 6.3 L Hct 18.5 L Plt Count 145 L Sodium 137 Potassium 5.1 BUN 101 H Creatinine 9.46 H Glucose 181 H Phosphorus 5.2 H Magnesium 1.9 Total Bilirubin 0.6 AST 28 ALT 37 Alkaline Phosphatase 150 H Imagings Data: darrenrice EXAM DESCRIPTION: RADChest Single View07/20/2023 2:00 pm CLINICAL HISTORY: Per [facility] order COMPARISON: 04/03/2023 and 03/30/2023 radiographs TECHNIQUE: Portable AP view of the chest. FINDINGS: Progressive central interstitial prominence and fluffy bibasilar opacities more so on the right. No pneumothorax or effusion. The cardiomediastinal contours are unremarkable. IMPRESSION: Findings suggesting pulmonary edema as above. Superimposed pneumonia cannot be entirely excluded. Conclusions/Impression: ESRD on HD -Acute HD as ordered Hyperkalemia -Acute HD HTN with CKD/ CHF -Continue Amlodipine & Coreg Diastolic CHF, A/C -Acute HD with UF DM II with CKD -RISS Anemia in CKD Acute blood loss due to GI bleed? -Transfuse PRBC as ordered -Retacrit qHD -Continue Protonix CKD MBD -Start calcitriol Case reviewed with Dr. Tong Thank you kindly for the consultation
[2023-07-20] MEDS: AMLODIPINE 5 MG TAB PO SCH (23:51)
[2023-07-20] MEDS: DOCUSATE NA 100 MG CAP PO SCH (23:52)
[2023-07-21 06:56] LABS: Absolute Lymphocytes (CBC) 0.6 K/uL (0.7-4.9); Hematocrit 29.3 % (36.0-45.0); Lymphocytes % 9.1 % (15.3-44.8); MCV 94.6 fL (80-100); MPV 7.9 fL (7.6-11.3); Platelets 165 thou/uL (152-406)
[2023-07-21 07:00] LABS: Albumin 3.5 g/dL (3.4-5.0); Bilirubin Total 0.9 mg/dL (0.2-1.0); Magnesium 1.9 mg/dL (1.6-2.4); Potassium 3.7 mEq/L (3.5-5.1); Protein, Total 7.4 g/dL (6.4-8.2)
[2023-07-21] MEDS: INSULIN REGULAR (HUMAN) 100 UNIT/ML SQ SCH ×4 (07:30→21:00)
[2023-07-21] MEDS: AMLODIPINE 5 MG TAB PO SCH ×2 (08:30→21:43)
[2023-07-21] MEDS: PANTOPRAZOLE 40MG TABLET PO SCH (08:31)
[2023-07-21] MEDS: MONTELUKAST 10 MG TAB PO SCH (08:31)
[2023-07-21] MEDS: HYDRALAZINE HCL 25 MG TABLET PO SCH ×2 (08:32→21:43)
[2023-07-21] MEDS: carvediloL 25 MG TAB PO SCH ×2 (08:48→17:00)
[2023-07-21] MEDS ORDERED: HOME MED 1 EA UNK (Brimonidine Tartrate [Alphagan P] 10 ML Drops) OPTH SCH (09:00)
[2023-07-21] MEDS ORDERED: ASPIRIN 81 MG CHEWABLE TABLET PO SCH (09:00)
--- NOTE | 2023-07-21 09:09 | P.DS ---
Admission Date: 07/20/23 Discharge Date: 07/22/23 Disposition: ROUTINE DISCHARGE Discharge Condition: FAIR Reason for Admission: Symptomatic anemia Brief History of Present Illness: 14-tcbz-ygn-year-old female with past medical history of end-stage renal disease on hemodialysis Thursday presents to the emergency room with symptomatic anemia. She was reported that she had laboratory of hemoglobin on home Thursday. Reports associated fatigue, dizziness shortness of breath. Reports history of anemia in the past. Denies rectal bleeding, no reported chest pain. Plan to admit for symptomatic anemia, end-stage renal disease on hemodialysis, with nephrology to consult. - Physical Exam General: Alert, In no apparent distress, Oriented x3 HEENT: Atraumatic, Normocephalic Neck: Supple, 2+ carotid pulse no bruit Respiratory: Clear to auscultation bilaterally, Normal air movement Cardiovascular: Normal pulses, Regular rate/rhythm Capillary refill: <2 Seconds Gastrointestinal: Normal bowel sounds, Soft and benign Musculoskeletal: No clubbing, No swelling Integumentary: No rashes, No breakdown Neurological: Normal speech, Normal strength at 5/5 x4 extr Hospital Course: 73-year-old female patient presented with end-stage renal disease on hemodialysis presented with symptomatic anemia. Was noted to have hemoglobin of 6.7. Was treated with transfusion of packed red blood cells and dialysis Condition improved with hemodialysis with blood transfusion. Stable for discharge to acute inpatient rehab with follow-up appointment with primary care physician. PROBLEM: End-stage renal disease on hemodialysis Symptomatic anemia Fluid volume overload after transfusion Need for acute hemodialysis Left knee pain, Was transfused packed red blood cells Hemoglobin 6.7-improved to 10.4 Hemodialysis x 2 days left knee xray FINDINGS: Osteoporosis. No evidence of loosening of the prosthesis.No fracture or dislocation seen. Vascular calcifications fall precautions Follow-up with nephrology for routine hemodialysis Avoid nephrotoxic medication Continue home medicines as previously prescribed GOAL: Clear understanding of disease process INSTRUCTIONS: Physician Discharge Instructions: -DC IV and DC home -Follow-up with PCP in 1 to 2 weeks -Please call Dr. Buckley at [phone] if any questions regarding hospital stay -Please call nursing station at [phone] if any nursing or medication questions -Return to the emergency room if symptoms worsen Diet: ADA, low sodium Activity: Fall precautions DME: Date Ordered: Name of Company: [employer] Services Needed: None Date or Referral: IMMUNIZATION Influenza Vaccine Indicated: Influenza Vaccine Given: Date Given: Pneumonia Vaccine Indicated: Pneumonia Vaccine Given: Date Given: Vital Signs/Physical Exam: Temp Pulse Resp BP Pulse Ox 98 F 79 16 170/73 H 96 07/21/23 08:00 07/21/23 08:48 07/21/23 08:00 07/21/23 08:48 07/21/23 08:00 Laboratory Data at Discharge: WBC 7.10 thou/uL (4.3-10.9) 07/21/23 06:12 Hgb 10.4 g/dL (12.0-15.0) L D 07/21/23 06:12 Hct 29.3 % (36.0-45.0) L 07/21/23 06:12 Plt Count 165 thou/uL (152-406) 07/21/23 06:12 Sodium 135 mEq/L (136-145) L 07/21/23 06:12 Potassium 3.7 mEq/L (3.5-5.1) D 07/21/23 06:12 BUN 47 mg/dL (7-18) H 07/21/23 06:12 Creatinine 5.71 mg/dL (0.55-1.02) H 07/21/23 06:12 Glucose 56 mg/dL (74-106) L 07/21/23 06:12 Phosphorus 5.2 mg/dL (2.5-4.9) H 07/20/23 09:13 Magnesium 1.9 mg/dL (1.6-2.4) 07/21/23 06:12 Total Bilirubin 0.9 mg/dL (0.2-1.0) 07/21/23 06:12 AST 18 U/L (15-37) 07/21/23 06:12 ALT 31 U/L (13-56) 07/21/23 06:12 Alkaline Phosphatase 152 U/L (45-117) H 07/21/23 06:12 Home Medications: Hydralazine [Apresoline*] 25 mg PO BID 03/18/22 Isosorbide Mononitrate [Isosorbide Mononitrate ER] 30 mg PO DAILY 03/18/22 Ferric Citrate [Auryxia] 3 tab PO TIDWM 09/11/22 Folic Acid/Vit B Complex and C [Dialyvite 800 Chewable Wafer] 800 mg PO DAILY 09/11/22 Methoxy Peg-Epoetin Beta [Mircera] 50 mcg IJ SEECOM 11/01/22 Raw Probiotics 1 cap PO DAILY 11/01/22 Amlodipine Besylate 5 mg PO BID 07/20/23 Ascorbic Acid [Vitamin C*] 2 tab PO BEDTIME 07/20/23 Aspirin [Gladys Chewable Aspirin] 1 tab PO SEECOM 07/20/23 Atorvastatin Calcium 1 tab PO BEDTIME 07/20/23 Brimonidine Tartrate [Alphagan P] 1 drops OPTH BID 07/20/23 Carvedilol [Coreg] 1 tab PO BID 07/20/23 Docusate Sodium [Stool Softener] 1 tab PO BEDTIME 07/20/23 Famotidine [Pepcid*] 1 tab PO BEDTIME 07/20/23 Glimepiride 1 tab PO BID 07/20/23 Hydrocodone Bit/Acetaminophen [Hydrocodon-Acetaminophn 10-325] 1 tab PO TID PRN 07/20/23 Ketorolac Opth [Acular 0.5% Opth Drops*] 1 drop OP BID 07/20/23 Montelukast Sodium [Singulair] 1 tab PO DAILY 07/20/23 Pantoprazole Sodium 1 tab PO DAILY 07/20/23 Promethazine HCl 1 tab PO Q6HR PRN 07/20/23 Vit B Comp C/Folic Acid/Vit D3 [Dialyvite 800 Plus D Wafer] 1 tab PO BEDTIME 07/20/23 Insulin Glargine,Hum.rec.anlog [Lynaglar Samreenikpen U-100] 0 units SQ SEECOM 07/21/23 Physician Discharge Instructions: 73-year-old female patient presented with end-stage renal disease on hemodialysis presented with symptomatic anemia. Was noted to have hemoglobin of 6.7. Was treated with transfusion of packed red blood cells and dialysis Condition improved with hemodialysis with blood transfusion. Stable for discharge to acute inpatient rehab with follow-up appointment with primary care physician. PROBLEM: End-stage renal disease on hemodialysis Symptomatic anemia Was transfused packed red blood cells Hemoglobin 6.7-improved to 10.4 Follow-up with nephrology for routine hemodialysis Continue home medicines as previously prescribed GOAL: Clear understanding of disease process INSTRUCTIONS: Physician Discharge Instructions: -DC IV and DC home -Follow-up with PCP in 1 to 2 weeks -Please call Dr. Buckley at [phone] if any questions regarding hospital stay -Please call nursing station at [phone] if any nursing or medication questions -Return to the emergency room if symptoms worsen Diet: ADA, low sodium Activity: Fall precautions Diet: Renal Activity: Weight bearing as tolerated Followup: Willie Kee DO [Primary Care Provider] - Time spent managing pt's care (in minutes): 55
[2023-07-21] MEDS ORDERED: PROMETHAZINE 25 MG TABLET PO SCH (11:00)
[2023-07-21 14:07] LABS: Absolute Lymphocytes (CBC) 0.5 K/uL (0.7-4.9); Hematocrit 28.9 % (36.0-45.0); Lymphocytes % 8.2 % (15.3-44.8); MCV 95.1 fL (80-100); MPV 7.7 fL (7.6-11.3); Platelets 155 thou/uL (152-406); RBC Red Blood Cell Count 3.04 M/uL (3.86-4.86)
[2023-07-21 14:09] LABS: RBC Red Blood Cell Count 3.07 M/uL (3.86-4.86)
--- NOTE | 2023-07-21 16:46 | P.PN ---
Subjective Date of Service: 07/21/23 Chief Complaint: Symptomatic anemia Shortness of breath with exertion, on O2 2 L , Daughter at bedside, discussed with Clinical plan dialysis today - Physical Exam General: Alert, In no apparent distress, Oriented x3 HEENT: Atraumatic, Normocephalic Neck: Supple, 2+ carotid pulse no bruit Respiratory: Crackles, Normal air movement Cardiovascular: Normal pulses, Regular rate/rhythm Capillary refill: <2 Seconds Gastrointestinal: Normal bowel sounds, Soft and benign Musculoskeletal: No clubbing, No swelling Integumentary: No rashes, No breakdown Neurological: Normal speech, Normal strength at 5/5 x4 extr Review of Systems per HPI Physical Examination - Vital Signs Temperature: 99.9 F Blood Pressure: 143/65 Pulse: 70 Respirations: 16 Pulse Ox (%): 94 Assessment And Plan - Plan Assessment plan Symptomatic anemia End-stage renal disease on hemodialysis Fluid volume overload history of end-stage renal disease on hemodialysis posttransfusion Acute hypoxic respiratory failure secondary to fluid volume overload Nephrology consult, type and cross 2 units, Fall precautions Patient was dialyzed on 07/20, repeat dialysis 07/21 due to hypoxia, fluid volume overload O2 2 L to keep sats greater than 92% Essential hypertension and uncontrolled Resume appropriate home medications Diabetes type 2 unknown control Accu-Cheks, sliding scale insulin Full code DVT heparin Diet renal Discharge Plan: Home - Code Status/Comfort Care Code Status: Full Code Critical Care: No Time Spent Managing PTS Care (In Minutes): 35
--- NOTE | 2023-07-21 18:58 | P.PN ---
Date of Service: 07/21/23 Vital Signs Temp Pulse Resp BP Pulse Ox 99.9 F 70 16 143/65 H 94 07/21/23 16:46 07/21/23 16:46 07/21/23 16:46 07/21/23 16:46 07/21/23 16:46 Medications Acetaminophen (Acetaminophen 500 Mg Tab) 500 mg PO Q4HP PRN PRN Reason: Pain scale 2-4 (Mild) Alprazolam (Alprazolam 0.25 Mg Tablet) 0.25 mg PO BEDTIME PRN PRN PRN Reason: INSOMNIA Amlodipine Besylate (Amlodipine 5 Mg Tab) 5 mg PO BID [facility] Last Admin: 07/21/23 08:30 Dose: 5 mg Ascorbic Acid (Ascorbic Acid 500 Mg Tablet) 1,000 mg PO BEDTIME [facility] Last Admin: 07/20/23 21:00 Dose: Not Given Aspirin (Aspirin 81 Mg Chewable Tablet) 81 mg PO SuTuThSa@0900 [facility] Last Admin: 07/21/23 08:31 Dose: 81 mg Atorvastatin Calcium (Atorvastatin 20 Mg Tab) 20 mg PO BEDTIME [facility] Last Admin: 07/20/23 23:51 Dose: 20 mg Atorvastatin Calcium (Atorvastatin 20 Mg Tab) 20 mg PO BEDTIME [facility] Last Admin: 07/20/23 21:00 Dose: Not Given Carvedilol (Carvedilol 25 Mg Tab) 25 mg PO BIDWM [facility] Last Admin: 07/21/23 17:00 Dose: Not Given Docusate Sodium (Docusate Na 100 Mg Cap) 100 mg PO BEDTIME [facility] Last Admin: 07/20/23 23:52 Dose: 100 mg Epoetin [place] (Epoetin [place] 10,000 Unit/Ml Vial) 10,000 unit IV EVERY HD [facility] Glucagon (Glucagon 1 Mg/Vial) 1 mg IM 1X PRN; Protocol PRN Reason: HYPOGLYCEMIA Heparin Sodium (Porcine) (Heparin 1,000 Unit/Ml Vial) 6,000 unit IV EVERY HD PRN PRN Reason: AFTER EACH Home Med (Brimonidine Tartrate [Alphagan P]) 1 drops OPTH BID [facility] Hydralazine HCl (Hydralazine Hcl 25 Mg Tablet) 25 mg PO BID [facility] Last Admin: 07/21/23 08:32 Dose: 25 mg Albumin Human (Albumin 25%) 50 mls @ 100 mls/hr IV EVERY HD [facility] Dextrose (Dextrose 10% Water Iv Soln.) 125 mls @ 0 mls/hr IV PRN PRN; Protocol PRN Reason: HYPOGLYCEMIA Insulin Glargine (Insulin Glargine 100 Unit/Ml) 0 unit SQ SEECOM [facility] Insulin Human Regular (Insulin Regular (Human) 100 Unit/Ml) 0 unit SQ ACHS [facility]; Protocol Last Admin: 07/21/23 16:30 Dose: Not Given Mannitol (Mannitol 25% 12.5 Gm/50 Ml Vial) 12.5 gm IV EVERY HD PRN PRN Reason: Titrate to SBP (MUST DEFINE) Montelukast Sodium (Montelukast 10 Mg Tab) 10 mg PO DAILY [facility] Last Admin: 07/21/23 08:31 Dose: 10 mg Pantoprazole Sodium (Pantoprazole 40mg Tablet) 40 mg PO DAILY [facility]; Protocol Last Admin: 07/21/23 08:31 Dose: 40 mg Promethazine HCl (Promethazine 25 Mg Tablet) 25 mg PO Q6H PRN PRN Reason: NAUSEA / VOMITING Last Admin: 07/21/23 08:48 Dose: 25 mg Promethazine HCl (Promethazine 25 Mg Tablet) 25 mg PO EVERY HD [facility] Lab Results (last 24 hrs) 07/20/23 09:13: ABO/Rh O POSITIVE, Solid Phase Ab Screen Negative, Crossmatch See Detail Assessment/ Plan: Nephrology No dyspnea No chest pain Feeling better today No acute events overnight Vitals, medications, blood work and imaging reviewed in the chart General: Oriented x3, Cooperative, Mild distress HEENT: Atraumatic Neck: Supple Respiratory: CTA Cardiovascular: Regular rate/rhythm, Edema Gastrointestinal: Soft and benign, Non-distended Musculoskeletal: No clubbing, No contractures Integumentary: No rashes, No cyanosis Neurological: Normal speech Laboratory Data (last 24 hrs) 07/20/23 07/20/23 09:13 09:13 WBC 6.90 Hgb 6.3 L Hct 18.5 L Plt Count 145 L Sodium 137 Potassium 5.1 BUN 101 H Creatinine 9.46 H Glucose 181 H Phosphorus 5.2 H Magnesium 1.9 Total Bilirubin 0.6 AST 28 ALT 37 Alkaline Phosphatase 150 H Imagings Data: darrenrice EXAM DESCRIPTION: Michelle Single View07/20/2023 2:00 pm CLINICAL HISTORY: Per [facility] order COMPARISON: 04/03/2023 and 03/30/2023 radiographs TECHNIQUE: Portable AP view of the chest. FINDINGS: Progressive central interstitial prominence and fluffy bibasilar opacities more so on the right. No pneumothorax or effusion. The cardiomediastinal contours are unremarkable. IMPRESSION: Findings suggesting pulmonary edema as above. Superimposed pneumonia cannot be entirely excluded. Conclusions/Impression: ESRD on HD -HD TIW Hyperkalemia -HD TIW HTN with CKD/ CHF -Continue Amlodipine & Coreg Diastolic CHF, A/C -HD with UF -Low sodium diet DM II with CKD -RISS Anemia in CKD Acute blood loss due to GI bleed? -Transfuse PRBC prn -Retacrit qHD -Continue Protonix CKD MBD -Continue calcitriol Hospitalist note reviewed
[2023-07-21] MEDS: DOCUSATE NA 100 MG CAP PO SCH ×2 (21:00→21:43)
[2023-07-21] MEDS: HOME MED 1 EA UNK (Brimonidine Tartrate [Alphagan P] 10 ML Drops) OPTH SCH (21:00)
[2023-07-21] MEDS: ATORVASTATIN 20 MG TAB PO SCH ×2 (21:00→21:43)
[2023-07-21] MEDS: ASCORBIC ACID 500 MG TABLET PO SCH (21:43)
[2023-07-22] MEDS: INSULIN REGULAR (HUMAN) 100 UNIT/ML SQ SCH (07:30)
[2023-07-22 07:39] LABS: Absolute Lymphocytes (CBC) 0.7 K/uL (0.7-4.9); Hematocrit 30.2 % (36.0-45.0); Lymphocytes % 13.5 % (15.3-44.8); MCV 96.4 fL (80-100); MPV 7.8 fL (7.6-11.3); Platelets 165 thou/uL (152-406); RBC Red Blood Cell Count 3.14 M/uL (3.86-4.86)
[2023-07-22 07:53] LABS: Albumin 3.3 g/dL (3.4-5.0); Bilirubin Total 0.6 mg/dL (0.2-1.0); Magnesium 2.1 mg/dL (1.6-2.4); Potassium 4.2 mEq/L (3.5-5.1); Protein, Total 7.2 g/dL (6.4-8.2)
[2023-07-22] MEDS ORDERED: INSULIN REGULAR (HUMAN) 100 UNIT/ML SQ SCH (07:56)
[2023-07-22 07:57] LABS: Phosphorus 5.3 mg/dL (2.5-4.9)
[2023-07-22] MEDS ORDERED: INSULIN GLARGINE 100 UNIT/ML SQ SCH (09:00)
[2023-07-22] MEDS ORDERED: MULTIVITAMINS,THERAPEUT 1 TAB PO SCH (09:00)
[2023-07-22] MEDS ORDERED: CALCITROL 0.25 MCG CAP PO SCH (09:00)
[2023-07-22] MEDS: AMLODIPINE 5 MG TAB PO SCH (09:00)
[2023-07-22] MEDS: HOME MED 1 EA UNK (Brimonidine Tartrate [Alphagan P] 10 ML Drops) OPTH SCH (09:00)
[2023-07-22] MEDS: MONTELUKAST 10 MG TAB PO SCH (09:04)
[2023-07-22] MEDS: carvediloL 25 MG TAB PO SCH (09:05)
[2023-07-22] MEDS: HYDRALAZINE HCL 25 MG TABLET PO SCH (09:05)
[2023-07-22] MEDS: PANTOPRAZOLE 40MG TABLET PO SCH (09:05)
[2023-07-22] MEDS: DOCUSATE NA 100 MG CAP PO SCH (09:05)
[2023-07-22 09:18] VITALS: O2SAT 99
--- NOTE | 2023-07-22 09:42 | P.PN ---
Date of Service: 07/22/23 Vital Signs Temp Pulse Resp BP Pulse Ox 98.3 F 62 18 119/58 L 99 07/22/23 04:00 07/22/23 09:05 07/22/23 04:00 07/22/23 09:05 07/22/23 04:00 Medications Acetaminophen (Acetaminophen 500 Mg Tab) 500 mg PO Q4HP PRN PRN Reason: Pain scale 2-4 (Mild) Alprazolam (Alprazolam 0.25 Mg Tablet) 0.25 mg PO BEDTIME PRN PRN PRN Reason: INSOMNIA Amlodipine Besylate (Amlodipine 5 Mg Tab) 5 mg PO BID [facility] Last Admin: 07/22/23 09:00 Dose: Not Given Ascorbic Acid (Ascorbic Acid 500 Mg Tablet) 1,000 mg PO BEDTIME [facility] Last Admin: 07/21/23 21:43 Dose: 1,000 mg Aspirin (Aspirin 81 Mg Chewable Tablet) 81 mg PO SuTuThSa@0900 [facility] Last Admin: 07/21/23 08:31 Dose: 81 mg Atorvastatin Calcium (Atorvastatin 20 Mg Tab) 20 mg PO BEDTIME [facility] Last Admin: 07/21/23 21:43 Dose: 20 mg Calcitriol (Calcitrol 0.25 Mcg Cap) 0.5 mcg PO DAILY [facility] Last Admin: 07/22/23 09:05 Dose: 0.5 mcg Carvedilol (Carvedilol 25 Mg Tab) 25 mg PO BIDWM [facility] Last Admin: 07/22/23 09:05 Dose: 12.5 mg Docusate Sodium (Docusate Na 100 Mg Cap) 100 mg PO BID [facility] Last Admin: 07/22/23 09:05 Dose: 100 mg Epoetin [place] (Epoetin [place] 10,000 Unit/Ml Vial) 10,000 unit IV EVERY HD [facility] Glucagon (Glucagon 1 Mg/Vial) 1 mg IM 1X PRN; Protocol PRN Reason: HYPOGLYCEMIA Heparin Sodium (Porcine) (Heparin 1,000 Unit/Ml Vial) 6,000 unit IV EVERY HD PRN PRN Reason: AFTER EACH Home Med (Brimonidine Tartrate [Alphagan P]) 1 drops OPTH BID [facility] Last Admin: 07/22/23 09:00 Dose: Not Given Hydralazine HCl (Hydralazine Hcl 25 Mg Tablet) 25 mg PO BID [facility] Last Admin: 01/24/24 09:05 Dose: 25 mg Albumin Human (Albumin 25%) 50 mls @ 100 mls/hr IV EVERY HD [facility] Dextrose (Dextrose 10% Water Iv Soln.) 125 mls @ 0 mls/hr IV PRN PRN; Protocol PRN Reason: HYPOGLYCEMIA Insulin Glargine (Insulin Glargine 100 Unit/Ml) 0 unit SQ SEECOM [facility] Insulin Human Regular (Insulin Regular (Human) 100 Unit/Ml) 0 unit SQ ACHS [facility]; Protocol Mannitol (Mannitol 25% 12.5 Gm/50 Ml Vial) 12.5 gm IV EVERY HD PRN PRN Reason: Titrate to SBP (MUST DEFINE) Montelukast Sodium (Montelukast 10 Mg Tab) 10 mg PO DAILY [facility] Last Admin: 07/22/23 09:04 Dose: 10 mg Pantoprazole Sodium (Pantoprazole 40mg Tablet) 40 mg PO DAILY [facility]; Protocol Last Admin: 07/22/23 09:05 Dose: 40 mg Promethazine HCl (Promethazine 25 Mg Tablet) 25 mg PO Q6H PRN PRN Reason: NAUSEA / VOMITING Last Admin: 07/21/23 08:48 Dose: 25 mg Promethazine HCl (Promethazine 25 Mg Tablet) 25 mg PO EVERY HD [facility] Vitamin B Complex/Vit C/Folic Acid (Multivitamins,Therapeut 1 Tab) 1 tab PO DAILY [facility] Last Admin: 07/22/23 09:04 Dose: 1 tab Lab Results (last 24 hrs) 07/20/23 09:13: ABO/Rh O POSITIVE, Solid Phase Ab Screen Negative, Crossmatch See Detail Assessment/ Plan: Nephrology No dyspnea No chest pain Feeling better today. Reports cramping with HD yesterday. Left knee pain with a history of a fall No acute events overnight Vitals, medications, blood work and imaging reviewed in the chart General: Oriented x3, Cooperative, Mild distress HEENT: Atraumatic Neck: Supple Respiratory: CTA Cardiovascular: Regular rate/rhythm, No Edema Gastrointestinal: Soft and benign, Non-distended Musculoskeletal: No clubbing, No contractures Integumentary: No rashes, No cyanosis Neurological: Normal speech Laboratory Data (last 24 hrs) 07/20/23 07/20/23 09:13 09:13 WBC 6.90 Hgb 6.3 L Hct 18.5 L Plt Count 145 L Sodium 137 Potassium 5.1 BUN 101 H Creatinine 9.46 H Glucose 181 H Phosphorus 5.2 H Magnesium 1.9 Total Bilirubin 0.6 AST 28 ALT 37 Alkaline Phosphatase 150 H Imagings Data: darrenrice EXAM DESCRIPTION: [place] Single View07/20/2023 2:00 pm [facility] COMPARISON: 04/03/2023 and 03/30/2023 radiographs TECHNIQUE: Portable AP view of the chest. FINDINGS: Progressive central interstitial prominence and fluffy bibasilar opacities more so on the right. No pneumothorax or effusion. The cardiomediastinal contours are unremarkable. IMPRESSION: Findings suggesting pulmonary edema as above. Superimposed pneumonia cannot be entirely excluded. Conclusions/Impression: ESRD on HD -HD TIW Hyperkalemia -HD TIW HTN with CKD/ CHF -Continue Amlodipine & Coreg Diastolic CHF, A/C -HD with UF -Low sodium diet DM II with CKD -RISS Anemia in CKD Acute blood loss due to GI bleed? -Transfuse PRBC prn -Retacrit qHD -Continue Protonix CKD MBD -Continue calcitriol Left Knee Pain with hx fall -Left knee xray Hospitalist note reviewed
--- NOTE | 2023-07-22 11:03 | RAD REPORT ---
EXAM DESCRIPTION: RAD - Knee Left 3 View - 07/22/2023 10:38 am CLINICAL HISTORY: Left knee pain FINDINGS: Osteoporosis. No evidence of loosening of the prosthesis. No fracture or dislocation seen. Vascular calcifications
[2023-07-22 14:17] VITALS: TEMP 97.7
[2023-07-22 14:31] VITALS: BP 142/63
--- NOTE | 2023-07-22 14:33 | RAD REPORT ---
EXAM DESCRIPTION: RAD - Chest Single View - 07/22/2023 4:34 am RAD - Chest Single View - 07/22/2023 4:34 am CLINICAL HISTORY: Shortness of breath COMPARISON: July 20, 2023 FINDINGS: Bilateral pulmonary opacities have partially resolved. Heart remains enlarged IMPRESSION: Partial resolution bilateral pulmonary opacities which may represent improving pulmonary edema
--- NOTE | 2023-07-22 17:27 | EKG ---
Test Date: 2023-07-20 Test Time: 11:10:[address] Justice: ARBEN MEASUREMENT RESULTS: Intervals: Rate: 75 UT: 154 QRSD: 98 QT: 436 QTc: 486 [place]: P: 73 UT: 154 QRS: 81 T: -31 INTERPRETIVE STATEMENTS: Normal sinus rhythm ST & T wave abnormality, consider inferior ischemia Prolonged QT Abnormal ECG Compared to ECG 04/03/2023 14:38:21 Prolonged QT interval now present ST (T wave) deviation still present Possible ischemia still present Electronically Signed On 07-22-23 17:23:55 [employer] by Wesley Weaver
== END 2023-07-22 14:23 | disposition home or self-care (01) ==
LOC: ER 08:57 → ERHOLD 09:55 → 2ND 15:20
PROVIDERS: ADMIT Hospitalist; ATTEND Hospitalist
PROC: 30233N1 Transfusion of Nonautologous Red Blood Cells into Peripheral Vein, Percutaneous Approach (ICD-10-PCS; principal; 2023-07-20)
DX: D64.9 Anemia, unspecified (principal); J96.01 Acute respiratory failure with hypoxia; E11.22 Type 2 diabetes mellitus with diabetic chronic kidney disease; I12.0 Hypertensive chronic kidney disease with stage 5 chronic kidney disease or end stage renal disease; I50.9 Heart failure, unspecified; N18.6 End stage renal disease; E87.70 Fluid overload, unspecified; E87.5 Hyperkalemia; M25.562 Pain in left knee; J81.1 Chronic pulmonary edema; M81.0 Age-related osteoporosis without current pathological fracture; Z99.2 Dependence on renal dialysis; Z88.0 Allergy status to penicillin; Z88.5 Allergy status to narcotic agent; Z91.040 Latex allergy status
CPT/HCPCS: 93005; 85025 ×4; 36415 ×3; 86900; 83735 ×3; 86850; 84100 ×2; 85044; 86901; 82947 ×9; 86920 ×3; 85018; 85014; 82607; 83540; 80053 ×3; 83880; 87340; 86706; 71045 ×2; 73562; 90935; 94760 ×2; 99285; 36430; J1815 ×2; Q0169 ×2; J1940; P9016 ×3; J7050; G0378

== ENCOUNTER 2025-02-13 09:25 | Inpatient (IN) | payer OTHER ==
[2025-02-13 10:13] LABS: Absolute Lymphocytes (CBC) 0.5 K/uL (0.7-4.9); Hematocrit 28.6 % (36.0-45.0); Hemoglobin 9.7 g/dL (12.0-15.0); MCH 31.7 pg (27.0-35.0); MCHC 33.8 g/dL (32.0-36.0); MCV 93.7 fL (80-100); MPV 7.4 fL (7.6-11.3); Nucleated RBC Absolute Count 0.0 (0-0); Nucleated Red Blood Cells % 0.0 % (0-0); RBC Red Blood Cell Count 3.05 M/uL (3.86-4.86); White Blood Count 5.90 thou/uL (4.3-10.9)
[2025-02-13 10:20] LABS: PT Prothrombin Time 13.3 SECONDS (10-13.0); Protime INR 1.18
[2025-02-13 10:34] LABS: ALT/SGPT 15.0 U/L (13-56); AST/SGOT 11.0 U/L (15-37); Albumin 3.2 g/dL (3.4-5.0); Albumin/Globulin Ratio 0.9 (1.1-1.8); Alkaline Phosphatase 94.0 U/L (45-117); Anion Gap 17.0 mEq/L (5.0-15.0); BUN Blood Urea Nitrogen 82.0 mg/dL (7-18); Globulin 3.5 g/dL (2.3-3.5); Glucose Level 184.0 mg/dL (74-106); Potassium 6.0 mEq/L (3.5-5.1)
[2025-02-13 11:09] LABS: Anisocytosis 3+; Blood Morphology Comment NOTED (NOT SEEN); Polychromasia 1+; White Blood Cell Scan OK (OK)
--- NOTE | 2025-02-13 11:34 | ER ---
Nurse's Notes [facility] Name: Tracy Butt Age: 74 yrs Sex: Female : 1950 Arrival Date: 02/13/2025 Time: 09:25 Bed 6 Private MD: Diagnosis: Hyperkalemia;GI Bleed/ Gastrointestinal hemorrhage, unspecified;Essential (primary) hypertension;Anemia, unspecified Presentation: 02/13 09:28 Chief complaint: EMS states: Streaks of bright red blood in stool for last few days per hb family, SBP 160s, HR 80s, SpO2 90s on RA, BGL 167 HD MWF. Coronavirus screen: At this time, the client does not indicate any symptoms associated with coronavirus-19. Ebola Screen: No symptoms or risks identified at this time. Initial Sepsis Screen: Does the patient meet any 2 criteria? No. Patient's initial sepsis screen is negative. Does the patient have a suspected source of infection? No. Patient's initial sepsis screen is negative. Risk Assessment: Do you want to hurt yourself or someone else? Patient reports no desire to harm self or others. Onset of symptoms was February 10, 2025. 09:28 Method Of Arrival: EMS: [facility] 09:28 Acuity: ANTHONY 3 hb Triage Assessment: 09:38 General: Appears in no apparent distress. Behavior is calm, cooperative. Pain: Denies hb pain. EENT: No signs and/or symptoms were reported regarding the EENT system. Neuro: Level of Consciousness is awake, alert, obeys commands, Oriented to person, place, time, situation. Cardiovascular: Patient's skin is warm and dry. Respiratory: Respiratory effort is even, unlabored, Respiratory pattern is regular, symmetrical. GI: Parent/caregiver reports the patient having blood in stool. : No signs and/or symptoms were reported regarding the genitourinary system. Derm: Skin is pink, warm \T\ dry. Musculoskeletal: No signs and/or symptoms reported regarding the musculoskeletal system. Historical: - Allergies: 09:31 CHLORAMPHENICOL; hb 09:31 Latex; hb 09:31 PENICILLINS; hb 09:31 Zofran or Morphine; hb - Home Meds: 09:48 atorvastatin 20 mg Oral tab 1 tab once daily [Active]; brimonidine 0.2 % ophthalmic hb drop 1 drop every 8 hours [Active]; calcium acetate miscellaneous powd [Active]; Cardura 8 mg Oral tab 1 tab once daily [Active]; carvedilol 25 mg Oral tab 1 tab 2 times per day [Active]; darbepoetin bella in polysorbate injection [Active]; doxazosin 2 mg Oral tab 1 tab twice a day [Active]; furosemide 20 mg Oral tab 1 tab once daily [Active]; furosemide 40 mg Oral tab 1 tab once daily [Active]; glimepiride 2 mg Oral tab 1 tab twice a day [Active]; hydralazine 100 mg Oral tab 1 tab 3 times per day [Active]; hydrocortisone 2.5 % Topical crea once daily [Active]; Integra F 125-1-40-3 mg Oral cap 1 cap once daily [Active]; Iron CR 65 mg Oral twice a day [Active]; ketorolac 0.4 % ophthalmic drop [Active]; losartan 50 mg Oral tab 1 tab once daily [Active]; vitamin A 8 Oral cap 1 cap once daily [Active]; albuterol sulfate inhalation Inhl [Active]; amlodipine oral [Active]; Aspirin Oral [Active]; - PMHx: 09:31 Anemia; kidney disease; Hypertension; Diabetes - NIDDM; MWF Dialysis; hb - PSHx: 09:31 LUE dialysis access; hb - Immunization history:: Adult Immunizations up to date. - Infectious Disease History:: Denies. - Social history:: Smoking status: Patient denies any tobacco usage or history of. Screenin:47 [facility] ED Fall Risk Assessment (Adult) History of falling in the last 3 months, hb including since admission Yes- single mechanical fall (1 pt) Confusion or Disorientation No (0 pts) Intoxicated or Sedated No (0 pts) Impaired Gait Yes (1 pt) Mobility Assist Device Used Yes (1 pt) Altered Elimination Yes (1 pt) Score/Fall Risk Level 3 or more points = High Risk Oriented to surroundings, Maintained a safe environment, Educated pt \T\ family on fall prevention, incl call for assistance when getting out of bed. Abuse screen: Denies threats or abuse. Denies injuries from another. Nutritional screening: No deficits noted. Tuberculosis screening: No symptoms or risk factors identified. Assessment: 09:47 General: See triage assessment. hb 10:41 Reassessment: Patient appears in no apparent distress at this time. Patient and/or hb family updated on plan of care and expected duration. Pain level reassessed. Patient is alert, oriented x 3, equal unlabored respirations, skin warm/dry/pink. 12:30 Reassessment: REPORT FAXED FOR RM 431. bp Vital Signs: 09:38 BP 152 / 65; Pulse 81; Resp 15; Temp 98.2; Pulse Ox 96% on R/A; Pain 0/10; hb 10:31 BP 166 / 64; Pulse 81; Resp 15; Pulse Ox 93% on R/A; hb 13:18 BP 167 / 59; Pulse 85; Resp 16; Pulse Ox 95% ; bp 09:38 Pain Scale: Adult hb ED Course: 09:27 Patient arrived in ED. bd 09:27 Chad Cuevas DO is Attending Physician. ms3 09:31 Triage completed. hb 09:38 Arm band placed on. hb 09:47 Patient has correct armband on for positive identification. Bed in low position. Call hb light in reach. Provided Education on: call light . 09:52 Josiah Felix, RN is Primary Nurse. bp 10:00 Initial lab(s) drawn, by vt, sent to lab. Inserted saline lock: 22 gauge in right bp antecubital area, using aseptic technique. Blood collected. Flushed with 10 mL NS. 11:43 EKG done, by ED staff, reviewed by Chad Cuevas DO. hb 11:46 Gerardo Osuna MD is Hospitalizing Provider. ms3 12:30 No provider procedures requiring assistance completed. Patient admitted, IV remains in bp place. Administered Medications: 12:10 Drug: Pantoprazole IVP 80 mg IVP once Route: IVP; Site: right forearm; hb 12:33 Follow up: Response: No adverse reaction bp 12:11 Drug: Insulin Regular Human IVP 10 units IVP once {Co-Signature: bp (Josiah Felix RN).} Route: IVP; Site: right forearm; 12:34 Follow up: Response: No adverse reaction bp 12:11 Drug: D50W IVP 50 ml IVP once; (1 amp) Route: IVP; Site: right forearm; hb 12:34 Follow up: Response: No adverse reaction bp Medication: 09:47 VIS not applicable for this client. hb Outcome: 11:33 ER care complete, transfer ordered by . ms3 11:47 Decision to Hospitalize by Provider. ms3 12:30 Admitted to Med/surg accompanied by tech, via wheelchair, room 431, bp 12:30 Condition: stable 12:30 Instructed on the need for admit, 13:20 Patient left the ED. bp Signatures: Lindsey Celis Heather, RN RN hb Josiah Felix RN RN bp Chad Cuevas DO DO ms3 Josiah Felix RN bp Corrections: (The following items were deleted from the chart) 09:54 09:48 Home Meds: darbepoetin bella in polysorbate injection; hb hb
--- NOTE | 2025-02-13 11:34 | EDPHYS ---
Physician Documentation [facility] Name: Tracy Butt Age: 74 yrs Sex: Female : 1950 Arrival Date: 02/13/2025 Time: 09:25 Bed 6 Private MD: ED Physician Chad Cuevas HPI: 02/13 18:25 This 74 yrs old Female presents to ER via EMS with complaints of Rectal Bleeding. ms3 18:25 74-year-old female with past medical history of anemia, kidney disease, hypertension, ms3 diabetes presents to the emergency department for bright red blood in her stool yesterday and today. Patient had hemoglobin of 10.1 and was transfused 3 days ago. Patient is on dialysis Thursday, Thursday, Thursday and is due for dialysis today. Patient denies pain. Patient denies any alleviating or inciting factors.. Historical: - Allergies: 09:31 CHLORAMPHENICOL; hb 09:31 Latex; hb 09:31 PENICILLINS; hb 09:31 Zofran or Morphine; hb - Home Meds: 09:48 atorvastatin 20 mg Oral tab 1 tab once daily [Active]; brimonidine 0.2 % ophthalmic hb drop 1 drop every 8 hours [Active]; calcium acetate miscellaneous powd [Active]; Cardura 8 mg Oral tab 1 tab once daily [Active]; carvedilol 25 mg Oral tab 1 tab 2 times per day [Active]; darbepoetin bella in polysorbate injection [Active]; doxazosin 2 mg Oral tab 1 tab twice a day [Active]; furosemide 20 mg Oral tab 1 tab once daily [Active]; furosemide 40 mg Oral tab 1 tab once daily [Active]; glimepiride 2 mg Oral tab 1 tab twice a day [Active]; hydralazine 100 mg Oral tab 1 tab 3 times per day [Active]; hydrocortisone 2.5 % Topical crea once daily [Active]; Integra F 125-1-40-3 mg Oral cap 1 cap once daily [Active]; Iron CR 65 mg Oral twice a day [Active]; ketorolac 0.4 % ophthalmic drop [Active]; losartan 50 mg Oral tab 1 tab once daily [Active]; vitamin A 8 Oral cap 1 cap once daily [Active]; albuterol sulfate inhalation Inhl [Active]; amlodipine oral [Active]; Aspirin Oral [Active]; - PMHx: 09:31 Anemia; kidney disease; Hypertension; Diabetes - NIDDM; MWF Dialysis; hb - PSHx: 09:31 LUE dialysis access; hb - Immunization history:: Adult Immunizations up to date. - Infectious Disease History:: Denies. - Social history:: Smoking status: Patient denies any tobacco usage or history of. ROS: 18:25 Constitutional: Negative for fever, and chills. Cardiovascular: Negative for chest ms3 pain, and palpitations. Respiratory: Negative for shortness of breath, cough, wheezing, and pleuritic chest pain, 18:25 MS/Extremity: Negative for injury and deformity, Skin: Negative for injury, rash, and discoloration, 18:25 Abdomen/GI: Positive for rectal bleeding, Exam: 11:47 Constitutional: This is a well developed, well nourished patient who is awake, alert, ms3 and in no acute distress. Head/Face: Normocephalic, atraumatic. Chest/axilla: Normal chest wall appearance and motion. Nontender with no deformity. Cardiovascular: Regular rate and rhythm with a normal S1 and S2. No gallops, murmurs, or rubs. Normal PMI, no JVD. No pulse deficits. Respiratory: Lungs have equal breath sounds bilaterally, clear to auscultation and percussion. No rales, rhonchi or wheezes noted. No increased work of breathing, no retractions or nasal flaring. Abdomen/GI: Soft, non-tender, with normal bowel sounds. No distension or tympany. No guarding or rebound. No evidence of tenderness throughout. Skin: Warm, dry with normal turgor. Normal color with no rashes, no lesions, and no evidence of cellulitis. 11:47 Abdomen/GI: Maroon stool in diaper. External hemorrhoids present. Base Loader: PARVIN Hebert, 18:25 ECG was reviewed by the Attending Physician. ms3 Vital Signs: 09:38 BP 152 / 65; Pulse 81; Resp 15; Temp 98.2; Pulse Ox 96% on R/A; Pain 0/10; hb 10:31 BP 166 / 64; Pulse 81; Resp 15; Pulse Ox 93% on R/A; hb 13:18 BP 167 / 59; Pulse 85; Resp 16; Pulse Ox 95% ; bp 09:38 Pain Scale: Adult hb MDM: 09:27 Medical Screening Exam initiated ms3 18:27 Differential diagnosis: hemorrhoids, AVM vs PUD vs Diverticulitis. Data reviewed: vital ms3 signs, nurses notes, lab test result(s), and as a result, I will admit patient. Consideration of Admission/Observation Patient was admitted/placed on observation. Management of patient was discussed with the following: Hospitalist: Dr Osuna. Life Skills Instructor: Discussed case with Dr Hunter and Dr De La Torre is in [facility]. Discussed patient with Dr De La Torre and he will consult on patient.. I considered the following discharge prescriptions or medication management in the emergency department Medications were administered in the Emergency Department. See MAR. Counseling: I had a detailed discussion with the patient and/or guardian regarding the historical points, exam findings, and any diagnostic results supporting the discharge/admit diagnosis, lab results, the need for further work-up and treatment in the hospital. ED course: Discussed necessity for admission with patient and her daughter. They understand and agree with plan. All questions were answered. Patient has remained in stable condition in the emergency department without bloody bowel movements.. 02/13 09:28 Order name: CBC with Diff; Complete Time: 11:15 ms3 02/13 09:28 Order name: CMP; Complete Time: 11:15 ms3 02/13 09:44 Order name: PT-INR; Complete Time: 11:15 ms3 02/13 10:17 Order name: CBC Smear Scan; Complete Time: 11:15 EDMS 02/13 12:07 Order name: CBC with Automated Diff EDMS 02/13 12:07 Order name: CBC with Automated Diff EDMS 02/13 12:07 Order name: CBC with Automated Diff EDMS 02/13 12:07 Order name: CBC with Automated Diff EDMS 02/13 12:07 Order name: CBC with Automated Diff EDMS 02/13 12:07 Order name: Comprehensive Metabolic Panel EDMS 02/13 12:07 Order name: Comprehensive Metabolic Panel EDMS 02/13 12:07 Order name: Comprehensive Metabolic Panel EDMS 02/13 12:07 Order name: Comprehensive Metabolic Panel EDMS 02/13 12:07 Order name: Comprehensive Metabolic Panel EDMS 02/13 12:07 Order name: Hemoglobin EDMS 02/13 12:35 Order name: Glucose, Ancillary Testing EDMS 02/13 12:35 Order name: Glucose, Ancillary Testing EDMS 02/13 11:16 Order name: EKG; Complete Time: 11:16 ms3 02/13 09:28 Order name: IV Saline Lock; Complete Time: 10:00 ms3 02/13 09:28 Order name: Labs collected and sent; Complete Time: 10:00 ms3 02/13 11:16 Order name: EKG - Nurse/Tech; Complete Time: 11:36 ms3 02/13 12:19 Order name: Glucose Level; Complete Time: 12:33 ms3 EC:25 Rate is 80 beats/min. Rhythm is regular. QRS [place] is Normal. MD interval is normal. QRS ms3 interval is normal. Clinical impression: Normal ECG. Interpreted by me. Reviewed by me. Administered Medications: 12:10 Drug: Pantoprazole IVP 80 mg IVP once Route: IVP; Site: right forearm; hb 12:33 Follow up: Response: No adverse reaction bp 12:11 Drug: Insulin Regular Human IVP 10 units IVP once {Co-Signature: bp (Josiah Felix hb RN).} Route: IVP; Site: right forearm; 12:34 Follow up: Response: No adverse reaction bp 12:11 Drug: D50W IVP 50 ml IVP once; (1 amp) Route: IVP; Site: right forearm; hb 12:34 Follow up: Response: No adverse reaction bp Disposition Summary: 02/13/25 11:47 Hospitalization Ordered Notes: Hospitalization Status: Inpatient Admission ms3 Provider: Gerardo Osuna ms3 Condition: Stable(02/13/25 11:47) ms3 Problem: new(02/13/25 11:47) ms3 Symptoms: are unchanged(02/13/25 11:47) ms3 Bed/Room Type: Standard ms3 Location: Telemetry/MedSurg (Inpatient)(02/13/25 12:07) bd Room Assignment: 431(02/13/25 12:19) bd Diagnosis - Hyperkalemia(02/13/25 11:47) ms3 - GI Bleed/ Gastrointestinal hemorrhage, unspecified(02/13/25 11:47) ms3 - Essential (primary) hypertension ms3 - Anemia, unspecified(02/13/25 11:47) ms3 Forms: - Medication Reconciliation Form ms3 - SBAR form ms3 - Leadership Thank You Letter ms3 Signatures: Dispatcher [employer] Lindsey Rascon Heather, RN RN Chad Cuevas, DO DO ms3 Isidro, Josiah RN bp Josiah Felix RN bp Corrections: (The following items were deleted from the chart) 09:54 09:48 Home Meds: darbepoetin bella in polysorbate injection; hb hb 11:46 11:33 Dr ms3 ms3 11:46 11:33 [facility] ms3 ms3 11:46 11:33 Higher level of care ms3 ms3 11:46 11:33 Stable ms3 ms3 11:46 11:33 new ms3 ms3 11:46 11:33 are unchanged ms3 ms3 11:46 11:33 Hyperkalemia ms3 ms3 11:46 11:33 Anemia, unspecified ms3 ms3 11:46 11:33 GI Bleed/ Gastrointestinal hemorrhage, unspecified ms3 ms3 12:07 11:47 Intensive Care Unit ms3 bd 12:07 11:47 ms3 bd 12:15 12:07 422 bd bd 12:19 12:15 231 bd bd
[2025-02-13] MEDS ORDERED: INSULIN REGULAR (HUMAN) 100 UNIT/ML ONE (12:01)
[2025-02-13] MEDS ORDERED: PANTOPRAZOLE 40 MG INJ ONE (12:01)
[2025-02-13] MEDS ORDERED: D50W 25 GM/50 ML SYRINGE IV ONE (12:02)
[2025-02-13] MEDS ORDERED: ONDANSETRON 4 MG/2 ML VIAL IV PRN (12:06)
[2025-02-13] MEDS ORDERED: SODIUM CHLORIDE 0.9% 10ML INJ IV PRN (12:07)
[2025-02-13 13:51] VITALS: BMI 27.4
[2025-02-13] MEDS ORDERED: NA CHLORIDE 0.9% 1,000 ML IV PRN (13:52)
[2025-02-13] MEDS ORDERED: MANNITOL 25% 12.5 GM/50 ML VIAL IV PRN (13:52)
[2025-02-13] MEDS ORDERED: ALBUMIN HUMAN 25% 50 ML IV SCH (14:00)
[2025-02-13] MEDS ORDERED: GOLYTELY 4000 ML PO SCH (14:00)
--- NOTE | 2025-02-13 15:26 | P.HP ---
Certification for Inpatient Patient admitted to: Inpatient With expected LOS: >2 Midnights Patient will require the following post-hospital care: None Practitioner: I am a practitioner with admitting privileges, knowledge of patient current condition, hospital course, and medical plan of care. Services: Services provided to patient in accordance with Admission requirements found in Title 42 Section 412.3 of the Code of Federal Regulations Patient History Date of Service: 02/13/25 Reason for admission: GIB, hyperkalemia History of Present Illness: 74-year-old female with history of ESRD on HD, anemia, GI bleeds, hypertension, diabetes mellitus type 2 presents emerged department chief complaint of bright red blood per rectum. Spoke with patient's daughter on the phone who reports that her in the caregiver both noticed that patient had formed stools with bright red blood in her rectum with both blood in the toilet and on toilet paper. She has previous episodes of GI bleeding with a gastric AVM around 1 year ago. Over the course of the last 2 months or so patient has had had blood transfusions at least 6 times which is atypical for her normal anemia of chronic disease related to her ESRD. Patient was evaluated in ER for debridement of rectum, labs were significant for a hemoglobin of 9.7 hematocrit 28.6 potassium 6.0 BUN 82 creatinine 6.91 glucose 184. Given her hyperkalemia and ongoing bright red blood per rectum patient be admitted to the hospital for further management, I did speak with nephrology in the ED and they will be arranging for inpatient dialysis today. ED physician also discussed case with Dr. De La Torre with GI who will see the patient in the hospital Allergies chloramphenicol Allergy (Verified 09/13/20 12:02) Anaphylaxis latex Allergy (Verified 04/03/23 20:26) Itching/Hives/Rash morphine Allergy (Verified 09/13/20 12:02) Itching/Hives/Rash ondansetron [From Zofran] Allergy (Verified 09/13/20 12:02) Itching/Hives/Rash Penicillins Allergy (Verified 09/13/20 12:02) Anaphylaxis Home Medications: Hydralazine [Apresoline*] 25 mg PO BID 03/18/22 Isosorbide Mononitrate [Isosorbide Mononitrate ER] 30 mg PO DAILY 03/18/22 Ferric Citrate [Auryxia] 3 tab PO TIDWM 09/11/22 Folic Acid/Vit B Complex and C [Dialyvite 800 Chewable Wafer] 800 mg PO DAILY 09/11/22 Methoxy Peg-Epoetin Beta [Mircera] 50 mcg IJ SEECOM 11/01/22 Raw Probiotics 1 cap PO DAILY 11/01/22 Amlodipine Besylate 5 mg PO BID 07/20/23 Ascorbic Acid [Vitamin C*] 2 tab PO BEDTIME 07/20/23 Aspirin [Gladys Chewable Aspirin] 1 tab PO SEECOM 07/20/23 Atorvastatin Calcium 1 tab PO BEDTIME 07/20/23 Brimonidine Tartrate [Alphagan P] 1 drops OPTH BID 07/20/23 Famotidine [Pepcid*] 1 tab PO BEDTIME 07/20/23 Glimepiride 1 tab PO BID 07/20/23 Hydrocodone Bit/Acetaminophen [Hydrocodon-Acetaminophn 10-325] 1 tab PO TID PRN 07/20/23 Ketorolac Opth [Acular 0.5% Opth Drops*] 1 drop OP BID 07/20/23 Montelukast Sodium [Singulair] 1 tab PO DAILY 07/20/23 Pantoprazole Sodium 1 tab PO DAILY 07/20/23 Promethazine HCl 1 tab PO Q6HR PRN 07/20/23 Vit B Comp C/Folic Acid/Vit D3 [Dialyvite 800 Plus D Wafer] 1 tab PO BEDTIME 07/20/23 carvediloL [Coreg] 1 tab PO BID 07/20/23 Insulin Glargine,Hum.rec.anlog [Basaglar Kwikpen U-100] 0 units SQ SEECOM 07/21/23 Docusate/Senna [Senokot-S] 1 tab PO BEDTIME 07/27/23 - Past Medical/Surgical History Has patient received pneumonia vaccine in the past: Yes Diabetic: Yes -: ESRD (Dr. Kee/ Dr. Fields) -: NIDDM -: Hypertension -: Anemia chronic disease -: CHRONIC BACK PAIN -: GLUACOMA -: RETINIOPATHY -: SUPERFICIAL BASIL CELL CARCINOMA -: Asthma -: Hysterectomy -: Left total knee -: back surgery -: CATARACT HAMMAD EYES -: LUE HD placed -: 09/09/22 Cervical Myelopathy Psychosocial/ Personal History: Patient lives with her daughter and is retired - Family History Mother -: Heart disease, Diabetes, Stroke Father -: Cancer Sister -: Cancer - Social History Smoking Status: Never smoker Alcohol use: No CD- Drugs: No Caffeine use: Yes Place of Residence: Home Review of Systems 10-point ROS is otherwise unremarkable Gastrointestinal: Hematochezia Physical Examination - Vital Signs Temperature: 98.0 F Blood Pressure: 166/71 Pulse: 83 Respirations: 18 Pulse Ox (%): 95 - Physical Exam General: Alert, In no apparent distress, Oriented x3 HEENT: Atraumatic, PERRLA, EOMI Neck: Supple, 2+ carotid pulse no bruit, No LAD Respiratory: Clear to auscultation bilaterally, Normal air movement Cardiovascular: Regular rate/rhythm, Normal S1 S2 Gastrointestinal: Normal bowel sounds, No tenderness Musculoskeletal: No tenderness Integumentary: No rashes Neurological: Normal speech, Normal strength at 5/5 x4 extr, Normal affect - Studies Laboratory Data (last 24 hrs) 02/13/25 02/13/25 02/13/25 10:00 10:00 10:00 WBC 5.90 Hgb 9.7 L Hct 28.6 L Plt Count 185 PT 13.3 H INR 1.18 Sodium 136 Potassium 6.0 H BUN 82 H Creatinine 6.91 H Glucose 184 H Total Bilirubin 0.6 AST 11 L ALT 15 Alkaline Phosphatase 94 Assessment and Plan - Plan Assessment: ESRD on HD with hyperkalemia Bright red blood per rectum/GI bleed Anemia of chronic disease/acute blood loss anemia Diabetes mellitus type [id number] hyperglycemia Hypertension Plan: ESRD on HD with hyperkalemia Nephrology consulted Patient will receive HD today Monitor chemistry daily Bright red blood per rectum/GI bleed Anemia of chronic disease/acute blood loss anemia Repeat H&H this evening Clear liquid diet N.p.o. for midnight in case of need for intervention with GI tomorrow GI consultation placed On PPI although suspect lower GI bleeding Diabetes mellitus type [id number] hyperglycemia ACHS Accu-Chek, sliding scale insulin Hypertension Continue home medications when verified DVT PPX: SCD Code status: Full code Discharge Plan: Home - Advance Directives Does patient have a Living Will: Yes Does patient have a Durable POA for Healthcare: Yes Time Spent Managing Pts Care (In Minutes): 64
[2025-02-13] MEDS: INSULIN REGULAR (HUMAN) 100 UNIT/ML SQ SCH (16:30)
[2025-02-13] MEDS: BISACODYL E.C. 5 MG TAB PO ONE ×2 (17:36→20:45)
--- NOTE | 2025-02-13 19:07 | P.CNS ---
Date of Consult: 02/13/25 Reason for Consult: ESRD Requesting Physician: Gerardo Osuna Chief Complaint: GIB, hyperkalemia History of Present Illness: 74-year-old female with history of ESRD on HD, anemia, GI bleeds, hypertension, diabetes mellitus type 2 presents emerged department chief complaint of bright red blood per rectum. Spoke with patient's daughter on the phone who reports that her in the caregiver both noticed that patient had formed stools with bright red blood in her rectum with both blood in the toilet and on toilet paper. She has previous episodes of GI bleeding with a gastric AVM around 1 year ago. Over the course of the last 2 months or so patient has had had blood transfusions at least 6 times which is atypical for her normal anemia of chronic disease related to her ESRD. Patient was evaluated in ER for debridement of rectum, labs were significant for a hemoglobin of 9.7 hematocrit 28.6 potassium 6.0 BUN 82 creatinine 6.91 glucose 184. Given her hyperkalemia and ongoing bright red blood per rectum patient be admitted to the hospital for further management, I did speak with nephrology in the ED and they will be arranging for inpatient dialysis today. ED physician also discussed case with Dr. De La Torre with GI who will see the patient in the hospital Allergies chloramphenicol Allergy (Verified 09/13/20 12:02) Anaphylaxis latex Allergy (Verified 04/03/23 20:26) Itching/Hives/Rash morphine Allergy (Verified 09/13/20 12:02) Itching/Hives/Rash ondansetron [From Zofran] Allergy (Verified 09/13/20 12:02) Itching/Hives/Rash Penicillins Allergy (Verified 09/13/20 12:02) Anaphylaxis Home medications list reviewed: Yes Home Medications: Hydralazine [Apresoline*] 25 mg PO BID 03/18/22 Isosorbide Mononitrate [Isosorbide Mononitrate ER] 30 mg PO DAILY 03/18/22 Ferric Citrate [Auryxia] 3 tab PO TIDWM 09/11/22 Folic Acid/Vit B Complex and C [Dialyvite 800 Chewable Wafer] 800 mg PO DAILY 09/11/22 Methoxy Peg-Epoetin Beta [Mircera] 50 mcg IJ SEECOM 11/01/22 Raw Probiotics 1 cap PO DAILY 11/01/22 Amlodipine Besylate 5 mg PO BID 07/20/23 Ascorbic Acid [Vitamin C*] 2 tab PO BEDTIME 07/20/23 Aspirin [Gladys Chewable Aspirin] 1 tab PO SEECOM 07/20/23 Atorvastatin Calcium 1 tab PO BEDTIME 07/20/23 Brimonidine Tartrate [Alphagan P] 1 drops OPTH BID 07/20/23 Famotidine [Pepcid*] 1 tab PO BEDTIME 07/20/23 Glimepiride 1 tab PO BID 07/20/23 Hydrocodone Bit/Acetaminophen [Hydrocodon-Acetaminophn 10-325] 1 tab PO TID PRN 07/20/23 Ketorolac Opth [Acular 0.5% Opth Drops*] 1 drop OP BID 07/20/23 Montelukast Sodium [Singulair] 1 tab PO DAILY 07/20/23 Pantoprazole Sodium 1 tab PO DAILY 07/20/23 Promethazine HCl 1 tab PO Q6HR PRN 07/20/23 Vit B Comp C/Folic Acid/Vit D3 [Dialyvite 800 Plus D Wafer] 1 tab PO BEDTIME 07/20/23 carvediloL [Coreg] 1 tab PO BID 07/20/23 Insulin Glargine,Hum.rec.anlog [Basaglar Kwikpen U-100] 0 units SQ SEECOM 07/21/23 Docusate/Senna [Senokot-S] 1 tab PO BEDTIME 07/27/23 - Past Medical/Surgical History Diabetic: Yes -: ESRD (Dr. Kee/ Dr. Fields) -: NIDDM -: Hypertension -: Anemia chronic disease -: CHRONIC BACK PAIN -: GLUACOMA -: RETINIOPATHY -: SUPERFICIAL BASIL CELL CARCINOMA -: Asthma -: Hysterectomy -: Left total knee -: back surgery -: CATARACT HAMMAD EYES -: LUE HD placed -: 09/09/22 Cervical Myelopathy Psychosocial/ Personal History: Patient lives with her daughter and is retired - Family History Mother Medical History: Heart disease, Diabetes, Stroke Father Medical History: Cancer Sister Medical History: Cancer - Social History Alcohol use: No CD- Drugs: No Caffeine use: Yes Place of Residence: Home Review of Systems 10-point ROS is otherwise unremarkable General: Weakness Physical Examination Temp Pulse Resp BP Pulse Ox 98.2 F 85 16 167/59 H 95 02/13/25 17:25 02/13/25 17:28 02/13/25 17:28 02/13/25 17:28 02/13/25 15:26 General: In no apparent distress, Oriented x3 HEENT: Atraumatic Neck: Supple Respiratory: Normal air movement Cardiovascular: Regular rate/rhythm, Edema (L>R) Gastrointestinal: Soft and benign, Non-distended Musculoskeletal: No clubbing, No contractures Integumentary: No rashes, No cyanosis Neurological: Normal speech Laboratory Data (last 24 hrs) 02/13/25 02/13/25 02/13/25 10:00 10:00 10:00 WBC 5.90 Hgb 9.7 L Hct 28.6 L Plt Count 185 PT 13.3 H INR 1.18 Sodium 136 Potassium 6.0 H BUN 82 H Creatinine 6.91 H Glucose 184 H Total Bilirubin 0.6 AST 11 L ALT 15 Alkaline Phosphatase 94 Conclusions/Impression: ESRD on HD MWF -Acute HD today Hyperkalemia -Acute HD today -Renal Diet HTN with CKD -Restart home medications DM II with CKD -RISS Anemia in CKD GI Bleed -Retacrit qHD -PRBC prn -Follow up with GI CKD MBD Secondary HyperParathyroidism -Start Ergo & Calcitriol Case reviewed with the hospitalist team Thank you kindly for the consultation
[2025-02-13] MEDS: DOCUSATE NA 100 MG CAP PO SCH (20:45)
[2025-02-13] MEDS: PANTOPRAZOLE 40 MG INJ IVP SCH (20:45)
[2025-02-13] MEDS: GOLYTELY 4000 ML ONE (20:51)
[2025-02-14] MEDS: LEVOTHYROXINE SOD 0.025 MG TAB PO SCH (07:30)
[2025-02-14] MEDS: GLIMEPIRIDE 2 MG TABLET PO SCH (08:00)
[2025-02-14] MEDS: SEVELAMER CARBONATE 800 MG TABLET PO SCH (08:00)
[2025-02-14] MEDS ORDERED: LIDOCAINE 1% MPF 30 ML VIAL ONE (08:18)
[2025-02-14] MEDS ORDERED: NA CHLORIDE 0.9% 500 ML ONE (08:21)
[2025-02-14] MEDS: PANTOPRAZOLE 40MG TABLET PO SCH (09:00)
[2025-02-14] MEDS: MONTELUKAST 10 MG TAB PO SCH (09:00)
[2025-02-14] MEDS: CALCITROL 0.25 MCG CAP PO SCH (09:00)
[2025-02-14] MEDS: ISOSORBIDE MONO SR 30 MG TAB PO SCH (09:00)
[2025-02-14] MEDS: BRIMONIDINE TARTRATE OPTH SCH (09:00)
[2025-02-14] MEDS: HYDRALAZINE HCL 25 MG TABLET PO SCH (09:00)
[2025-02-14] MEDS: MULTIVITAMINS,THERAPEUT 1 TAB PO SCH (09:00)
[2025-02-14] MEDS: DRISDOL (VITAMIN D=ERGOCALCIFEROL) 50000 UNIT CAP PO SCH (09:00)
[2025-02-14 10:06] LABS: AST/SGOT 13 U/L (15-37); Albumin 2.9 g/dL (3.4-5.0); Albumin/Globulin Ratio 0.9 (1.1-1.8); Alkaline Phosphatase 81 U/L (45-117); Anion Gap 12.7 mEq/L (5.0-15.0); BUN Blood Urea Nitrogen 33 mg/dL (7-18); Globulin 3.3 g/dL (2.3-3.5); Glucose Level 176 mg/dL (74-106); Magnesium 1.8 mg/dL (1.6-2.4); Potassium 4.7 mEq/L (3.5-5.1)
[2025-02-14 10:12] LABS: ALT/SGPT < 14 U/L (13-56)
[2025-02-14] MEDS ORDERED: LIDOCAINE 1% MPF 2 ML AMPULE ONE (10:16)
[2025-02-14] MEDS: DOCUSATE NA/SENNA CONC 1 TAB PO SCH (20:07)
[2025-02-14] MEDS: ATORVASTATIN 20 MG TAB PO SCH (20:07)
--- NOTE | 2025-02-14 20:59 | P.PN ---
Date of Service: 02/14/25 Vital Signs Temp Pulse Resp BP Pulse Ox 98.1 F 89 18 158/66 H 91 02/14/25 16:00 02/14/25 17:41 02/14/25 16:00 02/14/25 17:41 02/14/25 16:00 Medications Hydrocodone Bitart/Acetaminophen (Hydrocodone/Apap 10/325 Tab) 1 tab PO BIDP PRN PRN Reason: Pain scale 5-7 (Moderate) Atorvastatin Calcium (Atorvastatin 20 Mg Tab) 20 mg PO BEDTIME [facility] Last Admin: 02/14/25 20:07 Dose: 20 mg Calcitriol (Calcitrol 0.25 Mcg Cap) 0.5 mcg PO DAILY [facility] Last Admin: 02/14/25 09:00 Dose: Not Given Carvedilol (Carvedilol 25 Mg Tab) 25 mg PO BIDWM [facility] Last Admin: 02/14/25 17:41 Dose: 25 mg Docusate Sodium (Docusate Na 100 Mg Cap) 100 mg PO BID [facility] Last Admin: 02/14/25 20:06 Dose: 100 mg Epoetin [place] (Epoetin [place] 10,000 Unit/Ml Vial) 10,000 unit IV EVERY HD [facility] Ergocalciferol (Drisdol (Vitamin D=Ergocalciferol) 04994 Unit Cap) 50,000 unit PO Q7D@0900 [facility] Last Admin: 02/14/25 09:00 Dose: Not Given Glimepiride (Glimepiride 2 Mg Tablet) 4 mg PO BIDWM [facility] Last Admin: 02/14/25 17:42 Dose: 4 mg Home Med (Brimonidine Tartrate [Alphagan P]) 1 drops OPTH BID [facility] Last Admin: 02/14/25 20:08 Dose: Not Given Hydralazine HCl (Hydralazine Hcl 25 Mg Tablet) 50 mg PO QID [facility] Last Admin: 02/14/25 20:07 Dose: 50 mg Albumin Human (Albumin 25%) 50 mls @ 100 mls/hr IV EVERY HD [facility] Insulin Human Regular (Insulin Regular (Human) 100 Unit/Ml) 0 unit SQ ACHS [facility]; Protocol Last Admin: 02/14/25 19:59 Dose: Not Given Isosorbide Mononitrate (Isosorbide [place] Sr 30 Mg Tab) 30 mg PO DAILY [facility] Last Admin: 02/14/25 09:00 Dose: Not Given Levothyroxine Sodium (Levothyroxine Sod 0.025 Mg Tab) 0.025 mg PO ACB [facility] Last Admin: 02/14/25 07:30 Dose: Not Given Mannitol (Mannitol 25% 12.5 Gm/50 Ml Vial) 12.5 gm IV EVERY HD PRN PRN Reason: PRN FOR BP SUPPORT AT HD Montelukast Sodium (Montelukast 10 Mg Tab) 10 mg PO DAILY [facility] Last Admin: 02/14/25 09:00 Dose: Not Given Pantoprazole Sodium (Pantoprazole 40 Mg Inj) 40 mg IVP Q12HR [facility]; Protocol Last Admin: 02/14/25 20:07 Dose: 40 mg Senna/Docusate Sodium (Docusate Na/Senna Conc 1 Tab) 1 tab PO BEDTIME [facility] Last Admin: 02/14/25 20:07 Dose: 1 tab Sevelamer Carbonate (Sevelamer Carbonate 800 Mg Tablet) 1,600 mg PO TIDWM [facility] Last Admin: 02/14/25 17:42 Dose: 1,600 mg Sodium Chloride (Sodium Chloride 0.9% 10ml Inj) 10 ml IV UD PRN PRN Reason: Diluant Vitamin B Complex/Vit C/Folic Acid (Multivitamins,Therapeut 1 Tab) 1 tab PO DAILY [facility] Last Admin: 02/14/25 09:00 Dose: Not Given Assessment/ Plan: Nephrology No dyspnea No chest pain No acute events overnight Plan for EGD today Vitals, medications, blood work and imaging reviewed in the chart General: In no apparent distress, Oriented x3 HEENT: Atraumatic Neck: Supple Respiratory: Normal air movement Cardiovascular: Regular rate/rhythm, Edema (L>R) Gastrointestinal: Soft and benign, Non-distended Musculoskeletal: No clubbing, No contractures Integumentary: No rashes, No cyanosis Neurological: Normal speech Laboratory Data (last 24 hrs) 02/13/25 02/13/25 02/13/25 10:00 10:00 10:00 WBC 5.90 Hgb 9.7 L Hct 28.6 L Plt Count 185 PT 13.3 H INR 1.18 Sodium 136 Potassium 6.0 H BUN 82 H Creatinine 6.91 H Glucose 184 H Total Bilirubin 0.6 AST 11 L ALT 15 Alkaline Phosphatase 94 Conclusions/Impression: ESRD on HD MWF -HD TIW Hyperkalemia -Renal Diet HTN with CKD -Continue Coreg -Continue Hydralazine DM II with CKD -RISS Anemia in CKD GI Bleed -Retacrit qHD -PRBC prn -Follow up with GI CKD MBD Secondary HyperParathyroidism -Continue Ergo & Calcitriol Case reviewed with the hospitalist team
--- NOTE | 2025-02-14 21:02 | P.PN ---
Date of Service: 02/14/[address] Hunter today Last dialysis on 02/13 No new complaints ROS 10 point ROS as noted above, otherwise negative Physical Exam General: Alert and oriented x3, afebrile HEENT: Atraumatic, PERRLA, EOMI Neck: Supple, 2+ carotid pulse no bruit, No LAD Respiratory: Nonlabored breathing, Normal air movement Cardiovascular: Regular rate/rhythm, Normal S1 S2 Gastrointestinal: Normal bowel sounds, ND /NT Musculoskeletal: No tenderness Integumentary: No rashes Neurological: Normal speech, Normal strength at 5/5 x4 extr, Normal affect Vitals Reviewed Assessment: ESRD on HD with hyperkalemia Bright red blood per rectum/GI bleed Anemia of chronic disease/acute blood loss anemia Diabetes mellitus type [id number] hyperglycemia Hypertension Plan: ESRD on HD with hyperkalemia Nephrology consulted Last HD on 02/13/2025 Monitor chemistry daily Bright red blood per rectum/GI bleed Anemia of chronic disease/acute blood loss anemia Monitor H&H closely, stable Pured diet GI consultation and following On PPI although suspect lower GI bleeding Diabetes mellitus type [id number] hyperglycemia ACHS Accu-Chek, sliding scale insulin Hypertension Continue home medications when verified DVT PPX: SCD Code status: Full code Discharge Plan: Home Time Spent Managing Pts Care (In Minutes): 38
[2025-02-15 08:16] LABS: Absolute Lymphocytes (CBC) 0.7 K/uL (0.7-4.9); Hematocrit 25.3 % (36.0-45.0); Hemoglobin 8.5 g/dL (12.0-15.0); MCH 31.6 pg (27.0-35.0); MCHC 33.8 g/dL (32.0-36.0); MCV 93.6 fL (80-100); MPV 7.4 fL (7.6-11.3); Nucleated RBC Absolute Count 0.0 (0-0); Nucleated Red Blood Cells % 0.1 % (0-0); RBC Red Blood Cell Count 2.70 M/uL (3.86-4.86); White Blood Count 4.30 thou/uL (4.3-10.9)
[2025-02-15 08:35] LABS: Albumin 2.8 g/dL (3.4-5.0); Albumin/Globulin Ratio 1.0 (1.1-1.8); Alkaline Phosphatase 75 U/L (45-117); Anion Gap 14.4 mEq/L (5.0-15.0); BUN Blood Urea Nitrogen 42 mg/dL (7-18); Globulin 2.9 g/dL (2.3-3.5); Glucose Level 163 mg/dL (74-106); Potassium 5.4 mEq/L (3.5-5.1)
[2025-02-15 08:36] LABS: ALT/SGPT < 14 U/L (13-56); AST/SGOT < 10 U/L (15-37)
[2025-02-15 09:55] LABS: Absolute Lymphocytes (CBC) 0.6 K/uL (0.7-4.9); Hematocrit 23.9 % (36.0-45.0); Hemoglobin 8.2 g/dL (12.0-15.0); MCH 31.9 pg (27.0-35.0); MCHC 34.4 g/dL (32.0-36.0); MCV 92.8 fL (80-100); MPV 6.8 fL (7.6-11.3); Nucleated RBC Absolute Count 0.0 (0-0); Nucleated Red Blood Cells % 0.1 % (0-0); RBC Red Blood Cell Count 2.58 M/uL (3.86-4.86); White Blood Count 3.30 thou/uL (4.3-10.9)
[2025-02-15 11:07] LABS: HBsAG Nonreactive Report Report; Hepatitis B Surface Ab - Quant 114.17 mIU/mL (<8.0); Hepatitis B surface AG Interp. Nonreactive (Nonreactive)
[2025-02-15] MEDS: EPOETIN ALFA 10,000 UNIT/ML VIAL IV SCH (12:15)
[2025-02-15] MEDS: HYDROCODONE/APAP 10/325 TAB PO PRN (14:57)
--- NOTE | 2025-02-15 19:31 | P.PN ---
Date of Service: 02/15/25 Vital Signs Temp Pulse Resp BP Pulse Ox 97.8 F 81 18 137/44 L 96 02/15/25 16:00 02/15/25 16:00 02/15/25 16:00 02/15/25 16:00 02/15/25 16:00 Medications Hydrocodone Bitart/Acetaminophen (Hydrocodone/Apap 10/325 Tab) 1 tab PO BIDP PRN PRN Reason: Pain scale 5-7 (Moderate) Last Admin: 02/15/25 14:57 Dose: 1 tab Atorvastatin Calcium (Atorvastatin 20 Mg Tab) 20 mg PO BEDTIME [facility] Last Admin: 02/14/25 20:07 Dose: 20 mg Calcitriol (Calcitrol 0.25 Mcg Cap) 0.5 mcg PO DAILY [facility] Last Admin: 02/15/25 08:57 Dose: 0.5 mcg Carvedilol (Carvedilol 25 Mg Tab) 25 mg PO BIDWM [facility] Last Admin: 02/15/25 17:27 Dose: 25 mg Docusate Sodium (Docusate Na 100 Mg Cap) 100 mg PO BID [facility] Last Admin: 02/15/25 08:57 Dose: 100 mg Epoetin [place] (Epoetin [place] 10,000 Unit/Ml Vial) 10,000 unit IV EVERY HD [facility] Ergocalciferol (Drisdol (Vitamin D=Ergocalciferol) 40024 Unit Cap) 50,000 unit PO Q7D@0900 [facility] Last Admin: 02/14/25 09:00 Dose: Not Given Glimepiride (Glimepiride 2 Mg Tablet) 4 mg PO BIDWM [facility] Last Admin: 02/15/25 17:26 Dose: 4 mg Home Med (Brimonidine Tartrate [Alphagan P]) 1 drops OPTH BID [facility] Last Admin: 02/15/25 08:59 Dose: Not Given Hydralazine HCl (Hydralazine Hcl 25 Mg Tablet) 50 mg PO QID [facility] Last Admin: 02/15/25 17:27 Dose: 50 mg Albumin Human (Albumin 25%) 50 mls @ 100 mls/hr IV EVERY HD [facility] Insulin Human Regular (Insulin Regular (Human) 100 Unit/Ml) 0 unit SQ ACHS [facility]; Protocol Last Admin: 02/15/25 16:30 Dose: Not Given Isosorbide Mononitrate (Isosorbide Lane Sr 30 Mg Tab) 30 mg PO DAILY [facility] Last Admin: 02/15/25 08:59 Dose: Not Given Levothyroxine Sodium (Levothyroxine Sod 0.025 Mg Tab) 0.025 mg PO ACB [facility] Last Admin: 02/15/25 08:57 Dose: 0.025 mg Mannitol (Mannitol 25% 12.5 Gm/50 Ml Vial) 12.5 gm IV EVERY HD PRN PRN Reason: PRN FOR BP SUPPORT AT HD Montelukast Sodium (Montelukast 10 Mg Tab) 10 mg PO DAILY [facility] Last Admin: 02/15/25 08:57 Dose: 10 mg Pantoprazole Sodium (Pantoprazole 40 Mg Inj) 40 mg IVP Q12HR [facility]; Protocol Last Admin: 02/15/25 08:57 Dose: 40 mg Senna/Docusate Sodium (Docusate Na/Senna Conc 1 Tab) 1 tab PO BEDTIME [facility] Last Admin: 02/14/25 20:07 Dose: 1 tab Sevelamer Carbonate (Sevelamer Carbonate 800 Mg Tablet) 1,600 mg PO TIDWM [facility] Last Admin: 02/15/25 17:27 Dose: 1,600 mg Sodium Chloride (Sodium Chloride 0.9% 10ml Inj) 10 ml IV UD PRN PRN Reason: Diluant Vitamin B Complex/Vit C/Folic Acid (Multivitamins,Therapeut 1 Tab) 1 tab PO DAILY [facility] Last Admin: 02/15/25 08:57 Dose: 1 tab Assessment/ Plan: Nephrology No dyspnea No chest pain No acute events overnight Vitals, medications, blood work and imaging reviewed in the chart General: In no apparent distress, Oriented x3 HEENT: Atraumatic Neck: Supple Respiratory: Normal air movement Cardiovascular: Regular rate/rhythm, Edema (L>R) Gastrointestinal: Soft and benign, Non-distended Musculoskeletal: No clubbing, No contractures Integumentary: No rashes, No cyanosis Neurological: Normal speech Laboratory Data (last 24 hrs) 02/13/25 02/13/25 02/13/25 10:00 10:00 10:00 WBC 5.90 Hgb 9.7 L Hct 28.6 L Plt Count 185 PT 13.3 H INR 1.18 Sodium 136 Potassium 6.0 H BUN 82 H Creatinine 6.91 H Glucose 184 H Total Bilirubin 0.6 AST 11 L ALT 15 Alkaline Phosphatase 94 Conclusions/Impression: ESRD on HD MWF -HD TIW -Seen and examined on HD Hyperkalemia -Renal Diet HTN with CKD -Continue Coreg -Continue Hydralazine DM II with CKD -RISS Anemia in CKD GI Bleed -Retacrit qHD -PRBC prn -Follow up with GI CKD MBD Secondary HyperParathyroidism -Continue Ergo & Calcitriol Case reviewed with the hospitalist team
--- NOTE | 2025-02-15 20:51 | P.PN ---
Date of Service: 02/15/25 Subjective Doing well No new complain ROS 10 point ROS as noted above, otherwise negative Physical Exam General: Alert and oriented x3, NAD HEENT: Atraumatic, PERRLA, EOMI Respiratory: Symmetrical chest wall movement, on normal air movement Cardiovascular: NSR, Normal S1 S2 Gastrointestinal: Normal bowel sounds, ND /NT Musculoskeletal: No tenderness Neurological: Normal speech, Normal strength at 5/5 x4 extr, Normal affect Vitals Reviewed Assessment: ESRD on HD with hyperkalemia Bright red blood per rectum/GI bleed Anemia of chronic disease/acute blood loss anemia Diabetes mellitus type [id number] hyperglycemia Hypertension Plan: ESRD on HD with hyperkalemia Nephrology consulted Last HD record on 02/13/2025 Monitor chemistry daily Bright red blood per rectum/GI bleed Anemia of chronic disease/acute blood loss anemia Monitor H&H closely, stable Continue pured diet GI consultation and following On PPI although suspect lower GI bleeding Diabetes mellitus type [id number]-kbfkhlj-iqzgkfuwt hyperglycemia ACHS Accu-Chek, sliding scale insulin Hypertension Continue home medications when verified DVT PPX: SCD Code status: Full code Discharge Plan: Home Time Spent Managing Pts Care (In Minutes): 38
--- NOTE | 2025-02-15 21:16 | CON ---
Healthcare provider on service is [employer]. Indication For Gi Consult: GI bleed, anemia. History Of Presenting Illness: The patient is a 74-year-old woman with a history of end-stage renal disease, on dialysis; history of chronic anemia. She has had prior workup done, colonoscopy and endo scopy in the past; however, last workup was around 2 to 2-1/2 years ago. At that time, colon did not reveal any findings except for some hemorrhoids and EGD also revealed very few AVMs. However, the p atient had a capsule done and was having active bleeding from small intestinal angiodysplasias and wa s sent over to [facility] for further management. She did have at least 1 balloon enteroscopy done, uncl ear if she followed up afterwards. Today, she presents with maroon stools and hemoglobin of 9; [facility], she has received 6 units of blood in the last 2 months. She was admitted to the floor, and GI co nsultation was requested. The patient herself is not a good historian. Allergies: TO CHLORAMPHENICOL, LATEX, MORPHINE, , PENICILLIN. Home Medications: As in the chart. Past Medical History: End-stage renal disease, on dialysis; small intestinal bleeds; GI bleed; hyper tension; diabetes; glaucoma; retinopathy; asthma. Past Surgical History: Hysterectomy, left total knee, back surgery, cataract, hemodialysis catheter placement. Family History: Noncontributory. Social History: Denies toxic habits. Review of Systems: GI: As in HPI, otherwise negative. Remainder of 10-point review of systems negative. Physical Examination: Vital Signs: Temperature 98.0, blood pressure 166/71, pulse 83, respiratory rate 18. HEENT: Head atraumatic, normocephalic. Pupils equally reactive. Pallor present. Neck: Supple. Chest: Clear to auscultation bilaterally. Abdomen: Soft, nontender, nondistended. Bowel sounds present. Extremities: No pedal edema. Laboratory Data: Reviewed. 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 Plan: Continue current management. We will schedule the patient for endoscopy and colonoscopy to [facility] if there is any source that we can access and treat. Based on the findings, we will decide on furt her plan of care. If after endoscopy and colonoscopy, her hemoglobin continues to trend down, she ma y need to be evaluated again at the [facility] for balloon enteroscopy. US/MODL Voice ID: [id number] Report ID: [id number]
[2025-02-16 07:29] LABS: Absolute Lymphocytes (CBC) 0.7 K/uL (0.7-4.9); Hematocrit 25.2 % (36.0-45.0); Hemoglobin 8.8 g/dL (12.0-15.0); MCH 32.4 pg (27.0-35.0); MCHC 34.8 g/dL (32.0-36.0); MCV 93.3 fL (80-100); MPV 7.3 fL (7.6-11.3); Nucleated RBC Absolute Count 0.0 (0-0); Nucleated Red Blood Cells % 0.1 % (0-0); RBC Red Blood Cell Count 2.70 M/uL (3.86-4.86); White Blood Count 4.30 thou/uL (4.3-10.9)
[2025-02-16 07:46] LABS: Albumin 2.8 g/dL (3.4-5.0); Albumin/Globulin Ratio 0.9 (1.1-1.8); Alkaline Phosphatase 83 U/L (45-117); Anion Gap 11.7 mEq/L (5.0-15.0); BUN Blood Urea Nitrogen 26 mg/dL (7-18); Globulin 3.1 g/dL (2.3-3.5); Glucose Level 190 mg/dL (74-106); Potassium 4.7 mEq/L (3.5-5.1)
[2025-02-16 07:52] LABS: ALT/SGPT < 14 U/L (13-56); AST/SGOT < 10 U/L (15-37)
[2025-02-16 09:53] VITALS: O2SAT 95
--- NOTE | 2025-02-16 13:34 | P.DS ---
Admission Date: 02/13/25 Discharge Date: 02/16/25 Disposition: TRANSFER TO SNF - MEDICAL Discharge Condition: GOOD Reason for Admission: GIB, hyperkalemia Vital Signs/Physical Exam: Temp Pulse Resp BP Pulse Ox 97.6 F 74 12 148/65 H 95 02/16/25 08:00 02/16/25 08:38 02/16/25 08:00 02/16/25 08:38 02/16/25 08:00 Laboratory Data at Discharge: WBC 4.30 thou/uL (4.3-10.9) 02/16/25 07:04 Hgb 8.8 g/dL (12.0-15.0) L 02/16/25 07:04 Hct 25.2 % (36.0-45.0) L 02/16/25 07:04 Plt Count 183 thou/uL (152-406) 02/16/25 07:04 PT 13.3 SECONDS (10-13.0) H 02/13/25 10:00 INR 1.18 02/13/25 10:00 Sodium 136 mEq/L (136-145) 02/16/25 07:04 Potassium 4.7 mEq/L (3.5-5.1) 02/16/25 07:04 BUN 26 mg/dL (7-18) H 02/16/25 07:04 Creatinine 4.28 mg/dL (0.55-1.02) H 02/16/25 07:04 Glucose 190 mg/dL (74-106) H 02/16/25 07:04 Phosphorus 4.0 mg/dL (2.5-4.9) 02/14/25 09:01 Magnesium 1.8 mg/dL (1.6-2.4) 02/14/25 09:01 Total Bilirubin 0.4 mg/dL (0.2-1.0) 02/16/25 07:04 AST < 10 U/L (15-37) L 02/16/25 07:04 ALT < 14 U/L (13-56) 02/16/25 07:04 Alkaline Phosphatase 83 U/L (45-117) 02/16/25 07:04 Home Medications: Hydralazine [Apresoline*] 50 mg PO QID 03/18/22 Isosorbide Mononitrate [Isosorbide Mononitrate ER] 30 mg PO DAILY 03/18/22 Atorvastatin Calcium 1 tab PO BEDTIME 07/20/23 Brimonidine Tartrate [Alphagan P] 1 drops OPTH BID 07/20/23 Glimepiride 1 tab PO BID 07/20/23 Hydrocodone Bit/Acetaminophen [Hydrocodon-Acetaminophn 10-325] 1 tab PO BIDP PRN 07/20/23 Montelukast Sodium [Singulair] 1 tab PO DAILY 07/20/23 Pantoprazole Sodium 1 tab PO BID 07/20/23 Promethazine HCl 1 tab PO M,W,F PRN 07/20/23 Vit B Comp C/Folic Acid/Vit D3 [Dialyvite 800 Plus D Wafer] 1 tab PO BEDTIME 07/20/23 carvediloL [Coreg] 1 tab PO BID 07/20/23 Insulin Glargine,Hum.rec.anlog [Basaglar Kwikpen U-100] 0 units SQ SEECOM 07/21/23 Docusate/Senna [Senokot-S*] 1 tab PO BEDTIME 07/27/23 Levothyroxine Sodium 25 mcg PO DAILY 02/14/25 Sevelamer Carbonate [Renvela*] 2 tab PO TIDWM 02/14/25 Calcitrol [Rocaltrol*] 0.5 mcg PO DAILY 30 Days #30 cap 02/16/25 Docusate [Colace Cap*] 100 mg PO BID cap 02/16/25 Folic Acid/Vit B Complex and C [Nephro-Kerline Tablet] 0.8 mg PO DAILY 30 Days #30 tab 02/16/25 Pantoprazole [Protonix Tab] 40 mg PO DAILY 30 Days #30 tab 02/16/25 Vitamin D [Drisdol*] 50,000 unit PO Q7D@0900 cap 02/16/25 New Medications: Folic Acid/Vit B Complex and C [Nephro-Kerline Tablet] 0.8 mg PO DAILY 30 Days #30 tab Pantoprazole [Protonix Tab] 40 mg PO DAILY 30 Days #30 tab Calcitrol [Rocaltrol*] 0.5 mcg PO DAILY 30 Days #30 cap Physician Discharge Instructions: 1. Please call and schedule a follow-up appointment with your PCP in 3-5 days - Please follow-up with your PCP for medication refills/adjustments 2. Please call and schedule a follow-up appointment with Dr. Ortiz in 1 to 2 weeks 3. Continue pured diet 4. activity restrictions fall precaution 5. Return to the ED if symptoms worsen PROBLEM: (list out Acute Problems for the Current visit) GOAL: Clear understanding of disease process INSTRUCTIONS: Diet: Activity: [place] [address] P:[phone] F: [phone] Activity: Fall precautions Followup: Willie Kee DO [Primary Care Provider] - Jaxon Morales MD [ACTIVE - CAN ADMIT] -
[2025-02-16 14:21] VITALS: BP 134/51; TEMP 97.8
--- NOTE | 2025-02-16 20:47 | P.PN ---
Date of Service: 02/16/25 Vital Signs Temp Pulse Resp BP Pulse Ox 97.8 F 65 16 134/51 L 98 02/16/25 12:00 02/16/25 12:00 02/16/25 12:00 02/16/25 12:00 02/16/25 12:00 Assessment/ Plan: Nephrology No dyspnea No chest pain No acute events overnight Vitals, medications, blood work and imaging reviewed in the chart General: In no apparent distress, Oriented x3 HEENT: Atraumatic Neck: Supple Respiratory: Normal air movement Cardiovascular: Regular rate/rhythm, Edema (L>R) Gastrointestinal: Soft and benign, Non-distended Musculoskeletal: No clubbing, No contractures Integumentary: No rashes, No cyanosis Neurological: Normal speech Laboratory Data (last 24 hrs) 02/13/25 02/13/25 02/13/25 10:00 10:00 10:00 WBC 5.90 Hgb 9.7 L Hct 28.6 L Plt Count 185 PT 13.3 H INR 1.18 Sodium 136 Potassium 6.0 H BUN 82 H Creatinine 6.91 H Glucose 184 H Total Bilirubin 0.6 AST 11 L ALT 15 Alkaline Phosphatase 94 Conclusions/Impression: ESRD on HD MWF -HD TIW Hyperkalemia -Renal Diet HTN with CKD -Continue Coreg -Continue Hydralazine DM II with CKD -RISS Anemia in CKD GI Bleed -Retacrit qHD -PRBC prn -Follow up with GI CKD MBD Secondary HyperParathyroidism -Continue Ergo & Calcitriol Case reviewed with the hospitalist team
== END 2025-02-16 14:53 | DRG 377 ==
LOC: ER 09:25 → ERHOLD 12:00 → 4TH 12:33
PROVIDERS: ADMIT Hospitalist; ATTEND Internal Medicine
PROC: 5A1D70Z Performance of Urinary Filtration, Intermittent, Less than 6 Hours Per Day (ICD-10-PCS; principal; 2025-02-13)
PROC: 0DB98ZX Excision of Duodenum, Via Natural or Artificial Opening Endoscopic, Diagnostic (ICD-10-PCS; 2025-02-14)
PROC: 0DB78ZX Excision of Stomach, Pylorus, Via Natural or Artificial Opening Endoscopic, Diagnostic (ICD-10-PCS; 2025-02-14)
PROC: 0DB68ZX Excision of Stomach, Via Natural or Artificial Opening Endoscopic, Diagnostic (ICD-10-PCS; 2025-02-14)
PROC: 0DB58ZX Excision of Esophagus, Via Natural or Artificial Opening Endoscopic, Diagnostic (ICD-10-PCS; 2025-02-14)
PROC: 0W3P8ZZ Control Bleeding in Gastrointestinal Tract, Via Natural or Artificial Opening Endoscopic (ICD-10-PCS; 2025-02-14 11:00)
DX: K31.811 Angiodysplasia of stomach and duodenum with bleeding (principal); N18.6 End stage renal disease; I12.0 Hypertensive chronic kidney disease with stage 5 chronic kidney disease or end stage renal disease; D62 Acute posthemorrhagic anemia; N25.81 Secondary hyperparathyroidism of renal origin; K29.80 Duodenitis without bleeding; K29.70 Gastritis, unspecified, without bleeding; K20.90 Esophagitis, unspecified without bleeding; K31.7 Polyp of stomach and duodenum; E87.5 Hyperkalemia; E11.22 Type 2 diabetes mellitus with diabetic chronic kidney disease; E11.65 Type 2 diabetes mellitus with hyperglycemia; D63.1 Anemia in chronic kidney disease; K64.4 Residual hemorrhoidal skin tags; K57.30 Diverticulosis of large intestine without perforation or abscess without bleeding; Z99.2 Dependence on renal dialysis; Z88.0 Allergy status to penicillin; Z88.5 Allergy status to narcotic agent; Z79.02 Long term (current) use of antithrombotics/antiplatelets; Z79.84 Long term (current) use of oral hypoglycemic drugs; Z79.899 Other long term (current) drug therapy
CPT/HCPCS: 36415; 80053; 82947; 83735; 84100; 85018; 85025; 85610; 86706; 87340; 88305; 88312; 90935; 93005; 96374; 96375; 97110; 97161; 97530; 99285; J1815; J2003; J2470; J2704; J7040; Q4081